=== PATIENT | female | born 1980 | race Caucasian/White ===

== ENCOUNTER → 2019-11-20 15:05 | Outpatient (CLI) | payer BC, SELFPAY ==
--- NOTE | ~2019-11-20 | XR_ITS ---
EXAMINATION: XR abdomen/kub 1V EXAM DATE: 11/20/2019 16:37 INDICATION: Pelvic pain, history kidney stones. TECHNIQUE: Frontal projection(s) of the abdomen for interpretation. Comparison is made to prior exami nation from 03/07/2019. FINDINGS: Thoracolumbar fusion hardware. There is expected amount of colonic stool and gas. No sma ll bowel dilation, nonobstructive bowel gas pattern. There are no suspicious calcifications identif ied. There is no organomegaly suspected. IMPRESSION: No suspicious calcifications identified. Reviewed, dictated and finalized at location B. ROLL MAN
--- NOTE | ~2019-11-20 | US_ITS ---
EXAMINATION: US renal BI EXAM DATE: 11/20/2019 16:37 INDICATION: Bilateral flank pain. Lithotripsy x2. TECHNIQUE: Multiple grayscale and Doppler images of the kidneys were obtained (by a technologist who performed the scan) and subsequently reviewed. There is no prior study for comparison. FINDINGS: Right kidney: There is normal contour and echogenicity. It measures 12.5 x 5.6 x 5.6 centimeters. Th ere is no hydronephrosis. Possible small stone superior pole of the right kidney, although no shadow ing was demonstrated, could just be echogenic fat. Left kidney: There is normal contour and echogenicity. It measures 11.7 x 5.9 x 4.7 centimeters. Th ere are no focal renal lesions identified. There is no hydronephrosis. Bladder unremarkable. Bilateral ureteral jets confirmed. IMPRESSION: 1. Possible small right nephrolithiasis. Reviewed, dictated and finalized at location B. [employer]
== END ==
PROVIDERS: Visit Provider Nurse Practitioner Obstetrics & Gynecology
DX: R10.2 Pelvic and perineal pain (principal); Z87.442 Personal history of urinary calculi
CPT/HCPCS: 74018; 76775

== ENCOUNTER 2020-05-08 11:00 | Emergency (ER) | payer BC, SELFPAY ==
[2020-05-08 11:20] VITALS: BP 148/98; PULSE 83; RESP 20; TEMP 36.2
--- NOTE | 2020-05-08 13:22 | ED.URI ---
HPI - URI/Sore Throat General Chief Complaint: Upper Respiratory Infection Stated Complaint: Sore throat Source: patient and RN notes reviewed Mode of arrival: ambulatory Limitations: clinical condition History of Present Illness HPI Narrative: The patient, non-smoker/nondrinker, presents with sore throat. 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 She claims of 3-day history of sore throat especially on the left. No fever, cough, shortness of breath, loss of smell/taste, sick family vomiting/diarrhea/dehydration, rash, recent travel. Patient states she started Valtrex, because the onset of symptoms was very similar to prior, similar outbreak of fever blisters -that usually begins by her lips or nose. The patient agrees, in light of health emergency- in my medical judgement, only a personal or chat was preferable to fully undress & examine the patient exhibiting potential COVID symptoms, in order to limit risk of infection. Related Data Allergies Allergy/AdvReac Type Severity Reaction Status Date / Time NSAIDS (Non-Steroidal Allergy Severe face Verified 02/11/16 14:28 Anti-Inflamma swelling amoxicillin Allergy Unknown Diarrhea Verified 09/16/17 09:48 aspirin Allergy Unknown Swelling Verified 10/28/19 09:30 clarithromycin Allergy Unknown Vomiting Verified 10/28/19 09:30 erythromycin base Allergy Unknown Vomiting Verified 10/28/19 09:30 midazolam Allergy Unknown Hallucinati Verified 10/28/19 09:30 ng tramadol Allergy Unknown Hallucinati Verified 10/28/19 09:30 ng ciprofloxacin AdvReac Severe NAUSEA AND Verified 09/23/18 08:39 DIARRHEA Review of Systems Review of Systems: Narrative: The patient has been informed that they may have pre-hypertension or Hypertension based on a BP reading in the department. I recommend that the patient call the primary care provider listed on their discharge instructions or a physician of their choice this week to arrange follow up for further evaluation of possible pre-hypertension or Hypertension General/Constitutional: No weight loss,fever Eyes: N0: Redness,discharge Ears/Nose/Throat: No: Epistaxis,ear discharge Respiratory: Denies: Hemoptysis Gastrointestinal: No Vomiting, Bleeding-rectal Skin: No Lumps, eruption Neurologic: No Focal Weakness,Sz Hematologic: Denies: Petechiae/Purpura Psychiatric: No: Suicida ideationl All Other Systems: Reviewed and Negative PMFSH Past Medical History Medical History (Updated 05/08/20 @ 11:30 by Parveen Brandon MD) Celiac disease delivery delivered 2005 and 2007 Depression (~2009) Endometriosis History of nephrolithotomy with removal of calculi 2013 Scoliosis 7 kevin and screws Surgical History Surgical History History of back surgery 1994 Hx of inguinal hernia repair Social History Social History Smoking status: Never smoker Alcohol intake: never Gender identity (if verbalized by the patient): Female Comments At time of signature, agree with nursing past medical, surgical, social and family history. There is no relevant family history pertinent to the presenting complaint Exam Narrative: Exam Narrative: General Appearance: Well appearing, Well nourished/ obese EYE: PERRLA, Conjunctiva clear Mouth/Throat: MM moist, Uvula midline, Pharyngeal erythema Neck: Supple, + adenopathy Respiratory: No respiratory distress, airway patent Cardiovascular: RRR, No JVD Musculoskeletal: Non tender, Normal strength Skin: Warm, Dry Neurological: A&O x3, CN II-XII intact Psychiatric: Normal mood, Normal affect Course Vital Signs Vital signs: Vital Signs Temperature 97.1 F L 05/08/20 11:20 Pulse Rate 83 05/08/20 11:20 Respiratory Rate 20 05/08/20 11:20 Blood Pressure 148/98 H 05/08/20 11
== END 2020-05-08 11:32 | disposition home or self-care (01) ==
PROVIDERS: Emergency Provider Emergency Medicine
DX: J02.9 Acute pharyngitis, unspecified (principal); Z20.828 Contact with and (suspected) exposure to other viral communicable diseases; N80.9 Endometriosis, unspecified; M41.9 Scoliosis, unspecified; K90.0 Celiac disease
CPT/HCPCS: 87081; 87880; 99213; G0463

== ENCOUNTER 2020-05-12 14:42 | Emergency (ER) | payer BC, SELFPAY ==
--- NOTE | ~2020-05-12 | XR_ITS ---
XR foot LT min 3V 05/12/2020 15:05 INDICATION: Left foot pain PROCEDURE: 4 views left foot COMPARISON: No prior studies for comparison. FINDINGS: Fracture, dislocation or subluxation is not identified. The soft tissues appear within norm al limits. No foreign bodies are identified. IMPRESSION: 1: NO ACUTE BONE OR JOINT ABNORMALITY IDENTIFIED. Reviewed, dictated and finalized at location A.
[2020-05-12 14:52] VITALS: BP 145/76; PULSE 85; RESP 20; TEMP 36.2; O2SAT 98
--- NOTE | 2020-05-12 15:32 | ED.LOWEXIN ---
HPI - Extremity Injury (Lower) General Chief Complaint: Extremity Injury, Lower Stated Complaint: L/foot pain Time Seen by Provider: 05/12/20 14:45 Source: patient and RN notes reviewed Mode of arrival: ambulatory Limitations: no limitations History of Present Illness HPI Narrative: The patient, who is obese and allergic to several meds, presents with foot pain. Patient states she has a history of leg length discrepancy requiring orthotics in the past. She now complains of 1 week worsening of long history of left foot pain that is mild, worse with motion, better at rest, located distal laterally. No bleeding, deformity; discussed possible causes [stress fracture, DJD, ligamentous, etc] advised to follow-up with podiatry. Related Data Allergies Allergy/AdvReac Type Severity Reaction Status Date / Time NSAIDS (Non-Steroidal Allergy Severe face Verified 02/11/16 14:28 Anti-Inflamma swelling amoxicillin Allergy Unknown Diarrhea Verified 09/16/17 09:48 aspirin Allergy Unknown Swelling Verified 10/28/19 09:30 clarithromycin Allergy Unknown Vomiting Verified 10/28/19 09:30 erythromycin base Allergy Unknown Vomiting Verified 10/28/19 09:30 midazolam Allergy Unknown Hallucinati Verified 10/28/19 09:30 ng tramadol Allergy Unknown Hallucinati Verified 10/28/19 09:30 ng ciprofloxacin AdvReac Severe NAUSEA AND Verified 09/23/18 08:39 DIARRHEA Review of Systems Review of Systems: Narrative: General/Constitutional: No weight loss,fever Eyes: N0: Redness,discharge Ears/Nose/Throat: No: Epistaxis,ear discharge Respiratory: Denies: Hemoptysis Gastrointestinal: No Vomiting, Bleeding-rectal Skin: No Lumps, eruption Neurologic: No Focal Weakness,Sz Hematologic: Denies: Petechiae/Purpura Psychiatric: No: Suicida ideationl All Other Systems: Reviewed and Negative [facility] Past Medical History Medical History (Updated 05/09/20 @ 00:00 by Ashok Delgadillo) Celiac disease delivery delivered 2005 and 2007 Depression (~2009) Endometriosis History of nephrolithotomy with removal of calculi 2013 Scoliosis 7 kevin and screws Surgical History Surgical History History of back surgery 1994 Hx of inguinal hernia repair Social History Social History Smoking status: Never smoker Alcohol intake: never Gender identity (if verbalized by the patient): Female Comments At time of signature, agree with nursing past medical, surgical, social and family history. There is no relevant family history pertinent to the presenting complaint Exam Narrative: Exam Narrative: General Appearance: Well appearing, Well nourished, No distress EYE: PERRLA, EOMI, Conjunctiva clear Ears: External ear normal, Auditory canal normal Nose: Normal nose, Nares clear Mouth/Throat: Normal appearing, Normal lips Neck: Supple Respiratory: Airway patent, No respiratory distress Musculoskeletal: Normal strength (mostly intact, limited flexion/extension by pain), Tenderness ( laterally, with mild decreased ROM), Swelling (laterally), Other (no anterior drawer, no collateral laxity, no Achilles tenderness, no fifth MT tenderness) Skin: Warm, Dry, Normal color Neurological: A&O x3, Speech clear, CN II-XII intact Psychiatric: Normal mood, Normal affect Course Vital Signs Vital signs: Vital Signs Temperature 97.2 F L 05/12/20 14:52 Pulse Rate 85 05/12/20 14:52 Respiratory Rate 05/12/20 14:52 Blood Pressure 145/76 H 05/12/20 14:52 Pulse Oximetry 98 05/12/20 14:52 Temperature 97.2 F L 05/12/20 14:52 Pulse Rate 85 05/12/20 14:52 Respiratory Rate 05/12/20 14:52 Blood Pressure 145/76 H 05/12/20 14:52 Pulse Oximetry 98 05/12/20 14:52 Discharge Plan Discharge Patient Disposition: Home, Self-Care Condition: Stable Prescriptions: New prednisone 20 mg tablet 60 m
--- NOTE | 2020-05-12 15:45 | ED.LOWEXIN ---
HPI - Extremity Injury (Lower) General Chief Complaint: Extremity Injury, Lower Stated Complaint: L/foot pain Time Seen by Provider: 05/12/20 14:45 Source: patient and RN notes reviewed Mode of arrival: ambulatory Limitations: no limitations History of Present Illness HPI Narrative: The overweight patient, who has several meds allergies, presents with left foot pain. Patient states she has 1 week worsening long history of left foot pain. Patient states she has a prior history of leg length discrepancy, having had to wear orthotics in the past. She bought new shoes, now complains of distal lateral pain that is mild, worse with motion, better at rest. No injury, bleeding, deformity; discussed possible causes [stress fracture, metatarsalgia, neuroma, etc.] advised to follow-up with podiatry Related Data Allergies Allergy/AdvReac Type Severity Reaction Status Date / Time NSAIDS (Non-Steroidal Allergy Severe face Verified 02/11/16 14:28 Anti-Inflamma swelling amoxicillin Allergy Unknown Diarrhea Verified 09/16/17 09:48 aspirin Allergy Unknown Swelling Verified 10/28/19 09:30 clarithromycin Allergy Unknown Vomiting Verified 10/28/19 09:30 erythromycin base Allergy Unknown Vomiting Verified 10/28/19 09:30 midazolam Allergy Unknown Hallucinati Verified 10/28/19 09:30 ng tramadol Allergy Unknown Hallucinati Verified 10/28/19 09:30 ng ciprofloxacin AdvReac Severe NAUSEA AND Verified 09/23/18 08:39 DIARRHEA Review of Systems Review of Systems: Narrative: General/Constitutional: No weight loss,fever Eyes: N0: Redness,discharge Ears/Nose/Throat: No: Epistaxis,ear discharge Respiratory: Denies: Hemoptysis Gastrointestinal: No Vomiting, Bleeding-rectal Skin: No Lumps, eruption Neurologic: No Focal Weakness,Sz Hematologic: Denies: Petechiae/Purpura Psychiatric: No: Suicida ideationl All Other Systems: Reviewed and Negative [facility] Past Medical History Medical History (Updated 05/12/20 @ 15:41 by Parveen Brandon MD) Celiac disease delivery delivered 2005 and 2007 Depression (~2009) Endometriosis History of nephrolithotomy with removal of calculi 2013 Scoliosis 7 kevin and screws Surgical History Surgical History History of back surgery 1994 Hx of inguinal hernia repair Social History Social History Smoking status: Never smoker Alcohol intake: never Gender identity (if verbalized by the patient): Female Exam Narrative: Exam Narrative: General Appearance: well nourished/ overwight, Well appearing, Conjunctiva clear Mouth/Throat: Normal appearing, Normal lips, Supple Respiratory: Airway patent, No respiratory distress MS ankle: Normal strength (mostly intact, limited flexion/extension by pain), Tenderness ( distallaterally, with mild decreased ROM), Swelling (laterally), Other (no anterior drawer, no collateral laxity, no Achilles tenderness, fifth MT tenderness, distally) Skin: Warm, Dry, Normal color Neurological: A&O x3, Normal affect Course Course Emergency Course: Films visualized, interpreted by radiologist, agree, normal see report Vital Signs Vital signs: Vital Signs Temperature 97.2 F L 05/12/20 14:52 Pulse Rate 85 05/12/20 14:52 Respiratory Rate 20 05/12/20 14:52 Blood Pressure 145/76 H 05/12/20 14:52 Pulse Oximetry 98 05/12/20 14:52 Temperature 97.2 F L 05/12/20 14:52 Pulse Rate 85 05/12/20 14:52 Respiratory Rate 20 05/12/20 14:52 Blood Pressure 145/76 H 05/12/20 14:52 Pulse Oximetry 98 05/12/20 14:52 Discharge Plan Discharge Clinical Impression: Chronic foot pain Qualifiers: Laterality: left Qualified Code(s): M79.672 - Pain in left foot Patient Disposition: Home, Self-Care Condition: Stable Additional Instructions: Try foot strengthening exercises, see podiatry and follow-up Prescription
== END 2020-05-12 15:42 | disposition home or self-care (01) ==
PROVIDERS: Emergency Provider Emergency Medicine
DX: M79.672 Pain in left foot (principal); F32.9 Major depressive disorder, single episode, unspecified; N80.9 Endometriosis, unspecified; Z79.82 Long term (current) use of aspirin; Z79.891 Long term (current) use of opiate analgesic; Z79.1 Long term (current) use of non-steroidal anti-inflammatories (NSAID)
CPT/HCPCS: 73630; 99213; G0463

== ENCOUNTER → 2020-07-02 08:07 | Outpatient (CLI) | payer BC, SELFPAY ==
--- NOTE | ~2020-07-02 | MMUS_ITS ---
EXAMINATION: MM diagnostic wiliam BI w leatha, US breast BI complete HISTORY: Right palpable mass. Left lung. TECHNIQUE: Bilateral full field ML, MLO and cc 3-D tomosynthesis images and bilateral spot images wit h Tomosynthesis were performed and synthetic 2-D images were generated. Left magnification views. CAD analysis was submitted and interpreted. High resolution bilateral complete breast ultrasound was per formed. COMPARISON: 07/23/2017 diagnostic right digital mammogram and right complete breast ultrasound 07/08/2017 bilateral digital screening mammogram BREAST PARENCHYMAL COMPOSITION: The breasts are heterogeneously dense, which may obscure small masses . FINDINGS: MAMMOGRAPHIC FINDINGS: There is a biopsy marker on the right; history of prior bilateral benign breast biopsies. There is bilateral benign calcifications. Heterogeneous dense stroma may obscure masses on either side. Complete bilateral breast ultrasound ex amination was performed. ULTRASOUND: Right breast: 11:00 8 cm from nipple: 12 x 8 x 6 mm circumscribed hypoechoic mass is identified at the area of palp able abnormality. 11:00 6 cm from nipple: Irregular 8 x 9 mm hypoechoic solid lesion is identified, with some posterior shadowing. Left breast: 1:00 2 cm from nipple: Parallel circumscribed hypoechoic approximately 3.2 x 6 mm solid lesion without internal vascularity or posterior shadowing.. IMPRESSION: 1. Irregular 9 mm mass of right breast at 11:00 6 cm from nipple; ultrasound-guided biopsy is recomme nded 2. Parallel circumscribed hypoechoic solid lesions at right breast 11:00 8 cm from nipple and left br east 1:00 2 cm from nipple; these are likely benign. Consider 6 month follow-up ultrasound examinatio n. BI-RADS Category 4: Suspicious abnormality; ultrasound-guided biopsy is recommended for right breast 11:00 lesion 8 cm from nipple BI-RADS Category 3: Probably benign; recommend 6 month follow-up ultrasound with attention to right b reast 11:00 lesion 8 cm from nipple and left breast 1:00 lesion 2 cm from nipple Reviewed, dictated and finalized at location A. IMPRESSION: 1. Irregular 9 mm mass of right breast at 11:00 6 cm from nipple; ultrasound-gu ided biopsy is recommended 2. Parallel circumscribed hypoechoic solid lesions at right breast 11:00 8 cm f rom nipple and left breast 1:00 2 cm from nipple; these are likely benign. Cons ider 6 month follow-up ultrasound examination. BI-RADS Category 4: Suspicious abnormality; ultrasound-guided biopsy is recomme nded for right breast 11:00 lesion 8 cm from nipple BI-RADS Category 3: Probably benign; recommend 6 month follow-up ultrasound wit h attention to right breast 11:00 lesion 8 cm from nipple and left breast 1:00 lesion 2 cm from nipple
== END ==
PROVIDERS: Visit Provider Nurse Practitioner Obstetrics & Gynecology
DX: R92.8 Other abnormal and inconclusive findings on diagnostic imaging of breast (principal)
CPT/HCPCS: 76641; 77062; 77066; G0279

== ENCOUNTER → 2020-09-25 12:59 | Outpatient (CLI) | payer BC, SELFPAY ==
--- NOTE | ~2020-09-25 | CT_ITS ---
EXAMINATION: CT abdomen pelvis w con EXAM DATE: 09/25/2020 13:26 INDICATION: Abdominal pain. Irritable bowel syndrome. TECHNIQUE: Spiral CT of the abdomen and pelvis was performed following intravenous injection of 100 m L Omnipaque 350. Axial, coronal and sagittal images were reviewed. The dose-length product (DLP) fo r this examination was 1056.54 mGy-cm. The exposure was tailored according to patient size (auto mA exposure control), and iterative reconstruction (ASIR) was used as additional dose reduction techniqu e. Comparison is made to prior examination from 05/16/2018. FINDINGS: Small abdominal wall mesh identified from hernia repair. There is hepatic steatosis without suspicious focal lesion identified. Spleen, adrenal glands, pancreas are unremarkable. Gallbladder is unremarkable. No biliary obstruction. Portal and splenic veins are patent. Kidneys enhance symm etrically. There is no hydronephrosis. The uterus is anteverted with multiple cystic regions in the cervix most likely nabothian cysts. Ther e is a 4.6 cm left adnexal, ovarian cystic lesion most likely a dominant follicle or hemorrhagic cyst . No evidence of mural nodule. Consider 6 week follow-up pelvic sonogram. The bladder is unremarkabl e. There is no retroperitoneal or pelvic lymphadenopathy. Thoracolumbar fusion hardware along the left lateral side There is small region of inflammation along the descending colon new compared to prior examination, c ould be focal colitis or diverticulitis although only a few scattered colonic diverticula are present . The appendix is normal. The stomach and small bowel are unremarkable. There is expected amount of colonic stool. No free intraperitoneal gas. The heart is normal in size. There are no pericardi al or pleural effusions. Punctate right lower lobe granuloma. There is small sclerotic focus within T 9 is unchanged, likely bone island. IMPRESSION: 1. Small region of focal inflammation along the descending colon. Could be uncomplicated diverticuli tis or focal region of colitis. 2. Left ovarian cystic lesion likely physiologic or hemorrhagic cyst. Multiple cervical cystic regio ns probably nabothian cyst. Consider 6 week follow-up pelvic sonogram. 3. Hepatic steatosis. Reviewed, dictated and finalized at location A. T PREPARER IMPRESSION: 1. Small region of focal inflammation along the descending colon. Could be unc omplicated diverticulitis or focal region of colitis. 2. Left ovarian cystic lesion likely physiologic or hemorrhagic cyst. Multiple cervical cystic regions probably nabothian cyst. Consider 6 week follow-up pel natalia sonogram. 3. Hepatic steatosis.
== END ==
DX: R10.9 Unspecified abdominal pain (principal); K76.0 Fatty (change of) liver, not elsewhere classified; Z98.1 Arthrodesis status; N88.8 Other specified noninflammatory disorders of cervix uteri; K52.9 Noninfective gastroenteritis and colitis, unspecified
CPT/HCPCS: 74177; Q9967

== ENCOUNTER 2021-09-05 10:05 | Emergency (ER) | payer BC, SELFPAY ==
[2021-09-05 10:29] VITALS: BP 129/78; PULSE 85; RESP 18; TEMP 36.2; O2SAT 98
--- NOTE | 2021-09-05 10:57 | ED.URI ---
HPI - URI/Sore Throat General Chief Complaint: Upper Respiratory Infection Stated Complaint: fever,cough,congestion Source: patient and RN notes reviewed Limitations: no limitations History of Present Illness HPI Narrative: The vaccinated patient, a non-smoker/nondrinker, presents with respiratory symptoms. Patient states she has a shorter 2-day history of definite fever to 103 ,associated myalgias with headache, congestion and minimal cough. No sore throat, earache, wheezing?there is some sneezing; she had tonsillectomy in the past. She has several allergies; but has taken Z-Brandon in the past with Diflucan. Related Data Home Medications Medication Instructions Recorded Confirmed lifitegrast 5 % eye drops in a 1 drp EACH EYE BID 01/15/21 09/05/21 dropperette acetaminophen 325 mg capsule 325 mg PO Q6H PRN 06/05/21 09/05/21 Allergies Allergy/AdvReac Type Severity Reaction Status Date / Time NSAIDS (Non-Steroidal Allergy Severe face Verified 09/05/21 10:47 Anti-Inflamma swelling amoxicillin Allergy Unknown Diarrhea Verified 09/05/21 10:47 aspirin Allergy Unknown Swelling Verified 09/05/21 10:47 clarithromycin Allergy Unknown Vomiting Verified 09/05/21 10:47 erythromycin base Allergy Unknown Vomiting Verified 09/05/21 10:47 midazolam Allergy Unknown Hallucinati Verified 09/05/21 10:47 ng tramadol Allergy Unknown Hallucinati Verified 09/05/21 10:47 ng ciprofloxacin AdvReac Severe NAUSEA AND Verified 09/05/21 10:47 DIARRHEA Review of Systems Review of Systems: General/Constitutional: No weight loss, REPORTS fever Eyes: N0: Redness,discharge Ears/Nose/Throat: No: Epistaxis,ear discharge Respiratory: Denies: Hemoptysis Gastrointestinal: No Vomiting, Bleeding-rectal Skin: No Lumps, eruption Neurologic: No Focal Weakness,Sz Hematologic: Denies: Petechiae/Purpura Psychiatric: No: Suicida ideationl All Other Systems: Reviewed and Negative [facility] Past Medical History Medical History Celiac disease delivery delivered 2005 and 2007 Depression (~2009) Diverticulitis (~2019) Endometriosis Enlarged tonsils History of nephrolithotomy with removal of calculi 2013 Obstructive sleep apnea Scoliosis 7 kevin and screws Shingles Vitamin D deficiency Surgical History Surgical History (Updated 11/21/20 @ 08:22 by Jean-Pierre Spann [facility]) H/O breast biopsy History of back surgery 1994 Hx of inguinal hernia repair Family History Family History Father Family history of diabetes mellitus in first degree relative Depression Skin and subcutaneous tissue complication after insertion of filling material under skin Mother Asthma Breast cancer Sibling Asthma Depression Other Asthma Grandparent Hypertension Heart disease Grandparent Asthma Diabetes mellitus Hypertension Heart disease Thyroid disorder Other Family history of allergic disorder Social History Social History Smoking status: Never smoker Alcohol intake: current Substance use: never Substance use type: does not use Gender identity (if verbalized by the patient): Female Comments At time of signature, agree with nursing past medical, surgical, social and family history. There is no relevant family history pertinent to the presenting complaint Exam Narrative: General Appearance: Overweight/well nourished EYE: PERRLA, Conjunctiva clear Ears: Auditory canal normal, TM normal Nose: Rhinorrhea, Mucousal erythema Mouth/Throat: MM moist, Uvula midline, Pharyngeal erythema Neck: Supple, No adenopathy Respiratory: No respiratory distress,; distant BS equal, Clear to auscultation Cardiovascular: RRR, No JVD Musculoskeletal: Non tender, Normal strength Skin: Warm, Dry Neurological: A&O x3, CN II-XII intact Psychiatric:
[2021-09-06 19:57] LABS: SARS-CoV-2 RNA PCR Positive
== END 2021-09-05 11:08 | disposition home or self-care (01) ==
PROVIDERS: Emergency Provider Emergency Medicine; PCP Nurse Practitioner Family
DX: U07.1 COVID-19 (principal); N80.9 Endometriosis, unspecified; G47.33 Obstructive sleep apnea (adult) (pediatric); K90.0 Celiac disease; M41.9 Scoliosis, unspecified
CPT/HCPCS: 87804; 99213; C9803; G0463; U0003; U0005

== ENCOUNTER 2022-05-18 13:55 | Outpatient (CLI) | payer BC, SELFPAY ==
[2022-05-18 19:40] LABS: Alanine Aminotransferase 62 U/L (6-35); Albumin Level 4.5 g/dL (3.5-5.1); Alkaline Phosphatase 77 U/L (38-126); Anion Gap 11 mmol/L (8-16); Aspartate Amino Transferase 49 U/L (14-36); Bilirubin,Total 0.3 mg/dL (0.2-1.3); Blood Urea Nitrogen 14 mg/dL (7-17); Calcium 9.4 mg/dL (8.4-10.2); Carbon Dioxide 27 mmol/L (22-30); Chloride 98 mmol/L (98-107); Estimated Glomerular Filt Rate > 60; Glucose 124 mg/dL (65-110); Sodium 136 mmol/L (137-145)
[2022-05-18 19:46] LABS: Basophils Percent Auto 0.3 % (0.2-1.2); Eosinophils Absolute Auto 0.1 K/mm3 (0-0.3); Eosinophils Percent Auto 1.6 % (0-4.4); Hematocrit 45.2 % (37.0-47.0); Hemoglobin 14.1 g/dL (12.0-15.0); Immature Granulocyte Absolute 0.04 K/mm3 (0.00-0.031); Immature Granulocyte Percent A 0.5 % (0-0.5); Lymphocytes Absolute Auto 2.15 K/mm3 (0.9-3.2); Lymphocytes Percent Auto 28.3 % (18.3-44.2); Mean Corpuscular HGB Conc 31.2 g/dl (32-36); Mean Corpuscular Hemoglobin 28.8 pg (26-34); Mean Corpuscular Volume 92.2 fl (80-100); Mean Platelet Volume 9.9 fl (7.4-10.4); Monocytes Absolute Auto 0.4 K/mm3 (0.1-0.6); Monocytes Percent Auto 4.7 % (2.6-8.5); Neutrophils Absolute Auto 4.9 K/mm3 (1.3-6.7); Neutrophils Percent Auto 64.6 % (45.5-73.1); Platelet Count Result 327 k/mm3 (150-375); Red Cell Distribution Width 13.4 % (11.5-14.5); White Blood Count 7.6 K/mm3 (4.5-10.0)
[2022-05-18 20:46] LABS: Hepatitis B Surface Anti Res Positive
[2022-05-18 21:22] LABS: Vitamin D 25 Hydroxy 27.4 ng/mL
== END 2022-05-18 13:56 | disposition home or self-care (01) ==
LOC: ANHGOSHLAB 13:56
PROVIDERS: PCP Nurse Practitioner; Visit Provider Nurse Practitioner
DX: Z13.6 Encounter for screening for cardiovascular disorders (principal); E55.9 Vitamin D deficiency, unspecified; E53.8 Deficiency of other specified B group vitamins; Z02.1 Encounter for pre-employment examination
CPT/HCPCS: 36415; 80053; 82306; 82607; 85025; 86706

== ENCOUNTER 2022-05-23 12:31 | Emergency (ER) | payer BC, SELFPAY ==
--- NOTE | ~2022-05-23 | XR_ITS ---
EXAMINATION: XR thoracic spine 3V DATE: 05/23/2022 14:14 INDICATION: Upper back pain TECHNIQUE: AP, lateral and lateral swimmer's views of the thoracic spine were obtained. COMPARISON: None. FINDINGS: There are 15 degrees of upper thoracic levoscoliosis. There is no fracture. Bone alignment is normal. There is mild loss of intervertebral disc space height in the upper thoracic spine. The ve rtebral body heights are normal. There are partially imaged changes of lumbar fusion. IMPRESSION: 1. Mild thoracic spondylosis without acute findings. Reviewed, dictated and finalized at location A.
[2022-05-23 12:45] VITALS: BP 133/77; PULSE 69; RESP 18; TEMP 36.6; O2SAT 98
--- NOTE | 2022-05-23 13:51 | ED.GENADULT ---
HPI - General Adult General Chief complaint: Back Pain/Injury Stated complaint: Rt Shoulder Pain Time Seen by Provider: 05/23/22 13:52 Source: patient Mode of arrival: ambulatory Limitations: no limitations History of Present Illness HPI narrative: 41-year-old female patient presents to the [facility] with complaints of upper back pain for the past week. 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 Patient states she thinks it has to do with her posture that is causing issues with her upper back. Patient does have chronic history of scoliosis and in 1994 a lumbar kevin was put into the lower back. Patient states she tends to have issues with her upper back and muscle spasms because there was no fixing of her curvature toward the thoracic spine. Patient denies any specific injury to her back that she is aware of. Patient states she typically takes Tylenol or extra strength Tylenol to help with the pain. Patient states her pain is gotten significantly worse today. Denies any numbness or tingling to the lower legs. No issues with ambulation. Related Data Home Medications Medication Instructions Recorded Confirmed doxycycline hyclate 50 mg capsule mg 05/23/22 moxifloxacin 0.5 % eye drops drp 05/23/22 Allergies Allergy/AdvReac Type Severity Reaction Status Date / Time NSAIDS (Non-Steroidal Allergy Severe face Verified 05/23/22 12:38 Anti-Inflamma swelling amoxicillin Allergy Unknown Diarrhea Verified 05/23/22 12:38 aspirin Allergy Unknown Swelling Verified 05/23/22 12:38 clarithromycin Allergy Unknown Vomiting Verified 05/23/22 12:38 erythromycin base Allergy Unknown Vomiting Verified 05/23/22 12:38 midazolam Allergy Unknown Hallucinati Verified 05/23/22 12:38 ng tramadol Allergy Unknown Hallucinati Verified 05/23/22 12:38 ng ciprofloxacin AdvReac Severe NAUSEA AND Verified 05/23/22 12:38 DIARRHEA Review of Systems Review of Systems: CONSTITUTIONAL: Denies fever, chills, or sweats. EYES: Denies visual changes, redness, or discharge. ENT: Denies rhinorrhea, congestion, sore throat, or otalgia. CARDIOVASCULAR: Denies chest pain, palpitations, or edema. RESPIRATORY: Denies cough or dyspnea. GASTROINTESTINAL: Denies abdominal pain, nausea, vomiting, or diarrhea. GENITOURINARY: Denies dysuria or hematuria. SKIN: Denies rash or itching. MUSCULOSKELETAL: Positive upper back pain, denies joint pain, or myalgia. NEUROLOGIC: Denies headache, numbness, or weakness. PSYCHIATRIC: Denies anxiety or depression. [facility] Past Medical History Medical History Celiac disease delivery delivered 2005 and 2007 Depression (~2009) Diverticulitis (~2019) Endometriosis Enlarged tonsils History of nephrolithotomy with removal of calculi 2013 History of shingles Scoliosis 7 kevin and screws Shingles Vitamin D deficiency Surgical History Surgical History H/O breast biopsy History of back surgery 1994 History of tonsillectomy Hx of inguinal hernia repair Family History Family History Father Family history of diabetes mellitus in first degree relative Depression Skin and subcutaneous tissue complication after insertion of filling material under skin Mother Asthma Breast cancer Sibling Asthma Depression Other Asthma Grandparent Hypertension Heart disease Grandparent Asthma Diabetes mellitus Hypertension Heart disease Thyroid disorder Other Family history of allergic disorder Social History Social History Smoking status: Never smoker Alcohol intake: current Substance use: never Substance use type: does not use Gender identity (if verbalized by the patient): Female
== END 2022-05-23 14:43 | disposition home or self-care (01) ==
PROVIDERS: Emergency Provider Nurse Practitioner Family; PCP Nurse Practitioner Family
DX: M41.9 Scoliosis, unspecified (principal); M62.830 Muscle spasm of back; N80.9 Endometriosis, unspecified
CPT/HCPCS: 72072; 99213; G0463

== ENCOUNTER 2022-06-30 14:45 | Outpatient (CLI) | payer BC, SELFPAY ==
--- NOTE | ~2022-06-30 | CT_ITS ---
EXAMINATION: CT abdomen pelvis wo con DATE: 06/30/2022 15:09 INDICATION: Left lower quadrant abdominal pain. TECHNIQUE: Computed tomography (CT) of the abdomen and pelvis was performed without intravenous contr ast. Automated exposure control and iterative reconstruction technique were employed. The dose-length product was 1360.02 mGy-cm. COMPARISON: CT abdomen and pelvis 09/25/2020 FINDINGS: The visualized portions of the lung bases demonstrate mild atelectasis. No pleural effusion . The heart size is normal. No pericardial effusion. There is diffuse hepatic steatosis. The gallblad miles, spleen, pancreas, and adrenal glands are normal. There is a 1 mm stone in right kidney. There is a 1 mm stone in left kidney. There is a 3.0 cm peripelvic cyst in left kidney. There are nabothian c ysts in the cervix. There are no dilated loops of bowel. The appendix is normal. There are no patholo gically enlarged lymph nodes. There is no free intraperitoneal fluid. There is lumbar levocurvature. There are changes of anterior fusion procedure from T12 to L3. There is moderate lumbar spondylosis. IMPRESSION: 1. Diffuse hepatic steatosis. Reviewed, dictated and finalized at location A.
== END 2022-06-30 14:46 | disposition home or self-care (01) ==
PROVIDERS: PCP Family Medicine; Visit Provider Nurse Practitioner Family
DX: R10.32 Left lower quadrant pain (principal); K76.0 Fatty (change of) liver, not elsewhere classified
CPT/HCPCS: 74176

== ENCOUNTER 2022-08-31 22:41 | Emergency (ER) | payer BC, SELFPAY ==
--- NOTE | ~2022-08-31 | XR_ITS ---
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 RESULT: Lines, tubes, and devices: Partially visualized thoracolumbar fusion hardware. Lungs and pleura: Clear. Cardiomediastinal silhouette: Unremarkable. Other: No acute osseous or upper abdominal finding. IMPRESSION: No acute cardiopulmonary process. Reviewed, dictated and finalized at location K. ANICAL PRODUCT ENGINEER
[2022-08-31 22:43] VITALS: BP 163/88; PULSE 79; RESP 16; TEMP 36.4; O2SAT 98
--- NOTE | 2022-08-31 22:45 | ECG_ITS ---
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
[2022-08-31 23:29] LABS: Basophils Percent Auto 0.4 % (0.2-1.2); Eosinophils Absolute Auto 0.1 K/mm3 (0-0.3); Eosinophils Percent Auto 1.9 % (0-4.4); Hematocrit 40.6 % (37.0-47.0); Immature Granulocyte Absolute 0.03 K/mm3 (0.00-0.031); Immature Granulocyte Percent A 0.4 % (0-0.5); Lymphocytes Absolute Auto 2.19 K/mm3 (0.9-3.2); Lymphocytes Percent Auto 31.5 % (18.3-44.2); Mean Corpuscular Hemoglobin 29.3 pg (26-34); Mean Corpuscular Volume 91.4 fl (80-100); Mean Platelet Volume 9.3 fl (7.4-10.4); Monocytes Absolute Auto 0.5 K/mm3 (0.1-0.6); Monocytes Percent Auto 7.6 % (2.6-8.5); Neutrophils Absolute Auto 4.1 K/mm3 (1.3-6.7); Neutrophils Percent Auto 58.2 % (45.5-73.1); Platelet Count Result 244 k/mm3 (150-375); Red Blood Count 4.44 M/mm3 (4.2-5.4); Red Cell Distribution Width 13.3 % (11.5-14.5)
[2022-08-31 23:41] LABS: Prothrombin Time 12.5 Seconds (11.1-14.7)
[2022-08-31 23:42] LABS: Chloride 104 mmol/L (98-107); Partial Thromboplastin Time 24.5 SECONDS (22.3-36.8)
[2022-08-31 23:54] LABS: Troponin I < 0.012 ng/mL (0.000-0.034)
[2022-09-01 00:03] LABS: Alanine Aminotransferase 47 U/L (6-35); Alkaline Phosphatase 65 U/L (38-126); Anion Gap 10 mmol/L (8-16); Aspartate Amino Transferase 32 U/L (14-36); Bilirubin,Total 0.2 mg/dL (0.2-1.3); Blood Urea Nitrogen 12 mg/dL (7-17); Calcium 8.5 mg/dL (8.4-10.2); Carbon Dioxide 24 mmol/L (22-30); Estimated CRCL calculation 113 ml/min; Estimated Glomerular Filt Rate > 60; Glucose 121 mg/dL (65-110); Lipase 61 U/L (23-300); Potassium 3.9 mmol/L (3.4-5.0); Sodium 138 mmol/L (137-145)
--- NOTE | 2022-09-01 02:18 | ED.CHESTPAIN ---
HPI - Chest Pain General Chief Complaint: Chest Pain Stated Complaint: CP Time Seen by Provider: 08/31/22 22:52 History of Present Illness HPI narrative: Patient with no cardiac history presents with an episode of feeling like her heart was being squeezed that lasted for about a second and happened twice. Afterwards she has no symptoms, no nausea or vomiting, chest pain or shortness of breath, she has never had symptoms like this in the past, she did state that she had the COVID booster yesterday. Related Data Home Medications Medication Instructions Recorded Confirmed moxifloxacin 0.5 % eye drops drp 05/23/22 06/30/22 Allergies Allergy/AdvReac Type Severity Reaction Status Date / Time NSAIDS (Non-Steroidal Allergy Severe face Verified 06/30/22 13:54 Anti-Inflamma swelling amoxicillin Allergy Unknown Diarrhea Verified 06/30/22 13:54 aspirin Allergy Unknown Swelling Verified 06/30/22 13:54 clarithromycin Allergy Unknown Vomiting Verified 06/30/22 13:54 erythromycin base Allergy Unknown Vomiting Verified 06/30/22 13:54 midazolam Allergy Unknown Hallucinati Verified 06/30/22 13:54 ng tramadol Allergy Unknown Hallucinati Verified 06/30/22 13:54 ng ciprofloxacin AdvReac Severe NAUSEA AND Verified 06/30/22 13:54 DIARRHEA Review of Systems Review of Systems: CONST: No fever. HEENT: No sore throat C/V: Chest pain now resolved RESP: No cough GI: no abdominal pain : No dysuria. M/S: No joint pain. SKIN: No rash. NEURO: [No headache or focal numbness or weakness] PSYCH: [No depression] PMFSH Past Medical History Medical History Celiac disease delivery delivered 2005 and 2007 Depression (~2009) Diverticulitis (~2019) Endometriosis Enlarged tonsils History of nephrolithotomy with removal of calculi 2014 History of shingles Scoliosis 7 kevin and screws Shingles Vitamin D deficiency Surgical History Surgical History H/O breast biopsy History of back surgery 1994 History of tonsillectomy Hx of inguinal hernia repair Family History Family History Father Family history of diabetes mellitus in first degree relative Depression Skin and subcutaneous tissue complication after insertion of filling material under skin Mother Asthma Breast cancer Sibling Asthma Depression Other Asthma Grandparent Hypertension Heart disease Grandparent Asthma Diabetes mellitus Hypertension Heart disease Thyroid disorder Other Family history of allergic disorder Social History Social History Smoking status: Never smoker Alcohol intake: current Substance use: never Substance use type: does not use Gender identity (if verbalized by the patient): Female Sexual Orientation (if Verbalized by the Patient): Straight or Heterosexual Spiritual care concerns: No Exam Narrative: EXAMINATION OF ORGAN SYSTEMS/BODY AREAS: Constitutional: Vital signs per nursing GENERAL:[No acute distress, non-toxic appearing.] HEAD: Normal with no signs of head trauma. EYES: EOMI, conjunctiva normal ENT: Hearing grossly intact LUNGS: Nonlabored breathing. Clear to auscultation HEART: [Regular rate and rhythm] ABD: [Soft], [nontender to palpation] EXT: Normal range of motion SKIN: [No rashes or lesions.] NEURO: [Alert and oriented x 3. No gross focal sensory or strength deficits.] PSYCH: Normal affect Course Vital Signs Vital signs: Vital Signs Temperature 97.5 F L 08/31/22 22:43 Pulse Rate 79 08/31/22 22:43 Respiratory Rate 16 08/31/22 22:43 Blood Pressure 163/88 H 08/31/22 22:43 Pulse Oximetry 98 08/31/22 22:43 Temperature 97.5 F L 08/31/22 22:43 Pulse Rate 79 08/31/22 22:43 Respiratory Rate 16 08/31/22 22:43 Blood Pressure 163/88 H
[2022-09-01 02:25] LABS: Troponin I < 0.012 ng/mL (0.000-0.034)
[2022-09-01 03:10] VITALS: BP 134/94; PULSE 89; RESP 16; O2SAT 97
== END 2022-09-01 03:10 | disposition home or self-care (01) ==
PROVIDERS: Emergency Provider Emergency Medicine; PCP Family Medicine
DX: R07.89 Other chest pain (principal); K90.0 Celiac disease; N80.9 Endometriosis, unspecified; E55.9 Vitamin D deficiency, unspecified; Z87.442 Personal history of urinary calculi; R94.31 Abnormal electrocardiogram [ECG] [EKG]
CPT/HCPCS: 36415; 71046; 80053; 83690; 84484; 85025; 85610; 85730; 93005; 99284

== ENCOUNTER 2022-12-07 09:06 | Outpatient (CLI) | payer BC, SELFPAY ==
[2022-12-07 10:49] LABS: Kit Draw Collected
== END 2022-12-07 09:07 | disposition home or self-care (01) ==
LOC: ANHGOSHLAB 09:07
PROVIDERS: PCP Family Medicine; Visit Provider Nurse Practitioner Family
DX: Z00.00 Encounter for general adult medical examination without abnormal findings (principal); R74.8 Abnormal levels of other serum enzymes; Z13.220 Encounter for screening for lipoid disorders; E55.9 Vitamin D deficiency, unspecified
CPT/HCPCS: 36415

== ENCOUNTER → 2022-12-07 09:18 | Outpatient (CLI) | payer BC, SELFPAY ==
--- NOTE | ~2022-12-07 | XR_ITS ---
Left Knee Technique: AP and lateral views were obtained. Clinical History: Pain Findings: No fracture or dislocation is seen. Osseous alignment is anatomic. Joint spaces are preserv ed without degenerative or erosive change. Soft tissues are unremarkable. No joint effusion is seen. Impression: Unremarkable left knee radiographs. Reviewed, dictated and finalized at [facility]. 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
--- NOTE | ~2022-12-07 | XR_ITS ---
Right Knee Technique: AP and lateral views were obtained. Clinical History: Pain Findings: No fracture or dislocation is seen. Osseous alignment is anatomic. Joint spaces are preserv ed without degenerative or erosive change. Soft tissues are unremarkable. No joint effusion is seen. Impression: Unremarkable right knee radiographs. Reviewed, dictated and finalized at [facility]. 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
== END ==
PROVIDERS: PCP Nurse Practitioner Family; Visit Provider Nurse Practitioner Family
DX: M25.561 Pain in right knee (principal); M25.562 Pain in left knee
CPT/HCPCS: 73560

== ENCOUNTER 2023-01-21 14:29 | Outpatient (RCR) | payer BC, SELFPAY ==
[2023-01-21 14:39] VITALS: BMI 41.5
[2023-01-22 11:57] VITALS: BMI 41.5
== END 2023-04-12 08:54 | disposition home or self-care (01) ==
LOC: ANHDMC 14:29
PROVIDERS: PCP Nurse Practitioner Family; Visit Provider Nurse Practitioner Family
DX: R73.03 Prediabetes (principal); Z71.3 Dietary counseling and surveillance
CPT/HCPCS: 97802

== ENCOUNTER 2023-03-30 15:15 | Outpatient (RCR) | payer BC, SELFPAY ==
--- NOTE | 2023-01-13 16:23 | PTOPEVAL1 ---
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 She reports history of swelling in her legs, but has gotten worse with pain in L ankle. Also has pain in her knees, seeing ortho dr for knee pain. Her medical history includes multiple abdominal surgeries, mesh throughout abdomen, scoliosis surgery with rib on L removal. With the evaluation, her skin color is normal with fluffy texture, excess adipose tissue over lateral thighs and hips; there is not any fibrotic tissue and both ankles are edematous, with the L ankle painful. The circumferential measurements are within 3 cm. Education provided to pt and treatment options. Skilled PT services are indicated for lymphedema- lipedema treatment for both legs, compression reduction kit, manual lymph drainage, intermittent compression pump and education for home exercises , compression garment for her to obtain, skin care and garment care. Plan of Care Interventions Intermittent Compression,Lymphedema Compression Pump ,Manual Lymph Drainage,Patient/Caregiver Education, Therapeutic Exercise PT Services Indicated Yes Treatment Frequency and 0-2x/wk for 6 weeks, due to availability of Duration therapists' to initiate treatment These treatments will address the objective and functional deficits as defined above. The patient will be advanced safely and appropriately in order for the patient to progress towards his/her prior level of function. Additional exercises will be introduced and as well as a comprehensive home exercise program upon discharge, if needed, ?to ensure carryover of functional gains achieved in the clinic. This treatment plan has been reviewed and agreement upon by the patient.
--- NOTE | 2023-02-24 12:38 | PCPTNOTE ---
pt called and canceled today's reeval due to being ill--rescheduled for ;
--- NOTE | 2023-03-09 10:50 | PTOPPROG ---
Assessment and note entered by Sarah Vasquez, PT, CLT Evaluation Information Assessment Status Progress Diagnosis lymphedema Onset 2017 Subjective Information Kaylie reports: legs are much smaller, smaller than they have been in a long time; after doing yard work this weekend, legs were bigger; just recieved the home pump- have to call and make appt for set up; legs not as sore and do not have the pocket of swelling that have had before; pain range of 0-8/10; up to 8/10 sharp pain last few seconds only in either leg Assessment PT Clinical Summary Kaylie has received a total of 8 PT sessions. She has just received the home compression pump, but not yet received education for it. Compared to the initial evaluation: circumferential measurements have decreased: R by 13.7 cm and L by 11 cm; less pain reported in legs education on self care of lymphedema. She is using the reduction kit for compression to both lower legs. The goals were partially met. Continue PT for pt to obtain compression garments for half-way use; assess if she needs thigh compression, complete education for self care of lymphedema. Plan of Care Interventions Lymphedema Compression Wraps,Manual Lymph Drainage, Neuro Re-education,Patient/Caregiver Education, Therapeutic Activities,Therapeutic Exercise PT Services Indicated Yes Treatment Frequency and 2x/wk for 4 weeks Duration These treatments will address the objective and functional deficits as defined above. The patient will be advanced safely and appropriately in order for the patient to progress towards his/her prior level of function. Additional exercises will be introduced and as well as a comprehensive home exercise program upon discharge, if needed, ?to ensure carryover of functional gains achieved in the clinic. This treatment plan has been reviewed and agreement upon by the patient.
--- NOTE | 2023-03-30 16:17 | PTOPDC ---
Assessment and note entered by Sarah Vasquez, PT Evaluation Information Assessment Status Discharge Diagnosis lymphedema Onset 2018 Subjective Information Kaylie reports: legs are good; garments are comfortable, using home pump every day, elevating legs, do self massage, watching her food; ready for discharge; is going to obtain a compression luis alfredo; having less sharp pain in legs; Reported Pain Level Pain Score Self Report Assessment PT Clinical Summary Kaylie has received 12 PT sessions. Compared to the last reevaluation: the circumferential measurements of her legs : R has increased by .1 cm and L has decreased by 10.2 cm. Her skin integrity is good, without any firmness or redness of the tissue. She has lipedema, with increased adipose tissue over lateral hips and thighs. She has calf high, 20-30 mmHg compression garments with good fit and comfortable to her. She has info for compression luis alfredo and is going to look into the different types available and order a pair. She has a home intermittent compression pump and has been receptive to the education and voices understanding of the information. The goals were partially met. Discharge PT services. Plan of Care PT Services Indicated No
== END 2023-03-31 07:03 | disposition home or self-care (01) ==
LOC: ANHPT 15:15
PROVIDERS: PCP Nurse Practitioner Family; Visit Provider Nurse Practitioner Family
DX: I89.0 Lymphedema, not elsewhere classified (principal); M77.11 Lateral epicondylitis, right elbow
CPT/HCPCS: 97016; 97140; 97161

== ENCOUNTER 2023-07-15 08:19 | Outpatient (CLI) | payer BC, SELFPAY ==
[2023-07-15 18:42] LABS: Basophils Percent Auto 0.6 % (0.2-1.2); Eosinophils Absolute Auto 0.1 K/mm3 (0-0.3); Eosinophils Percent Auto 1.5 % (0-4.4); Hematocrit 43.9 % (37.0-47.0); Hemoglobin 13.8 g/dL (12.0-15.0); Immature Granulocyte Absolute 0.03 K/mm3 (0.00-0.031); Immature Granulocyte Percent A 0.4 % (0-0.5); Lymphocytes Absolute Auto 2.21 K/mm3 (0.9-3.2); Mean Corpuscular HGB Conc 31.4 g/dl (32-36); Mean Corpuscular Hemoglobin 28.9 pg (26-34); Mean Platelet Volume 9.9 fl (7.4-10.4); Monocytes Absolute Auto 0.4 K/mm3 (0.1-0.6); Monocytes Percent Auto 6.2 % (2.6-8.5); Neutrophils Absolute Auto 4.3 K/mm3 (1.3-6.7); Neutrophils Percent Auto 60.3 % (45.5-73.1); Platelet Count Result 283 k/mm3 (150-375); Red Blood Count 4.77 M/mm3 (4.2-5.4); Red Cell Distribution Width 13.4 % (11.5-14.5); White Blood Count 7.1 K/mm3 (4.5-10.0)
[2023-07-15 19:07] LABS: Alanine Aminotransferase 136 U/L (6-35); Albumin Level 4.3 g/dL (3.5-5.1); Alkaline Phosphatase 75 U/L (38-126); Anion Gap 5 mmol/L (8-16); Aspartate Amino Transferase 100 U/L (14-36); Bilirubin,Total 0.6 mg/dL (0.2-1.3); Blood Urea Nitrogen 12 mg/dL (7-17); Calcium 8.7 mg/dL (8.4-10.2); Carbon Dioxide 27 mmol/L (22-30); Chloride 104 mmol/L (98-107); Cholesterol 189 mg/dL (0-200); Estimated Glomerular Filt Rate > 60; Glucose 97 mg/dL (65-110); HDL Direct 60 mg/dL; Potassium 4.4 mmol/L (3.4-5.0); Sodium 136 mmol/L (137-145); Triglycerides 141 mg/dL (<150)
[2023-07-15 19:18] LABS: LDL Cholesterol Direct 98 mg/dL
[2023-07-19 23:55] LABS: Vitamin D 1,25 (OH)2 Total 69 pg/mL (18-72); Vitamin D2 1,25 (OH)2 <8 pg/mL; Vitamin D3 1,25 (OH)2 69 pg/mL
== END 2023-07-15 08:20 | disposition home or self-care (01) ==
LOC: ANHGOSHLAB 08:21
PROVIDERS: PCP Family Medicine; Visit Provider Nurse Practitioner Family
DX: E55.9 Vitamin D deficiency, unspecified (principal); E66.9 Obesity, unspecified; Z68.38 Body mass index [BMI] 38.0-38.9, adult
CPT/HCPCS: 36415; 80053; 80061; 82652; 84443; 85025

== ENCOUNTER 2023-07-16 15:11 | Outpatient (CLI) | payer BC, SELFPAY ==
[2023-07-16 19:37] LABS: Hepatitis B Surface Antigen Negative (Negative)
[2023-07-16 19:43] LABS: HAV RESULT Negative (Negative); Hepatitis B Core IgM Result Negative (Negative)
[2023-07-16 19:55] LABS: Hepatitis C Virus Antibody Negative (Negative)
== END 2023-07-16 15:12 | disposition home or self-care (01) ==
LOC: ANHGOSHLAB 15:12
PROVIDERS: Visit Provider Nurse Practitioner Family
DX: R74.8 Abnormal levels of other serum enzymes (principal)
CPT/HCPCS: 36415; 80074

== ENCOUNTER → 2023-07-22 08:56 | Outpatient (CLI) | payer BC, SELFPAY ==
--- NOTE | ~2023-07-22 | US_ITS ---
Abdominal Sonogram: Real-time sonographic imaging of the abdomen was performed. Clinical History: Abnormal serum enzyme levels Findings: The liver appears echogenic, with no evidence of mass lesion or bile duct dilatation. Main portal vein demonstrates normal direction of flow. The spleen is normal in size without evidence of focal lesion. The gallbladder is well distended, and appears normal with no evidence of gallstone or wall thickening. The common bile duct measures 6 mm. The visualized pancreas, aorta, and IVC are un remarkable. The right kidney measures 13.0 cm in length and the left kidney measures 12.2 cm. There is no hydronephrosis or renal calculus. Impression: Unremarkable abdominal ultrasound. Reviewed, dictated and finalized at location . Impression: Unremarkable abdominal ultrasound.
== END ==
PROVIDERS: PCP Nurse Practitioner Family; Visit Provider Nurse Practitioner Family
DX: R74.8 Abnormal levels of other serum enzymes (principal)
CPT/HCPCS: 76700

== ENCOUNTER 2023-08-16 09:00 | Emergency (ER) | payer BC, SELFPAY ==
--- NOTE | ~2023-08-16 | US_ITS ---
EXAMINATION: US pelvic complete DATE: 08/16/2023 12:08 INDICATION: Right adnexal pain TECHNIQUE: Multiple transabdominal sonographic images of the pelvis were obtained. COMPARISON: Ultrasound dated 05/16/[address] dated 08/16/2023 FINDINGS: The uterus measures 12.2 x 5.4 x 6.8 cm. The endometrial complex is unable to be clearly delineated transabdominal imaging precluding thickness measurement. The right ovary measures 5.4 x 5.5 x 5.0 cm and contains an approximately 4 cm anechoic cyst/follicle. The left ovary is not definitively. Along the periphery of the right ovary unclear whether this within the ovary or at the adjacent uterus. Bot h ovaries are visualized and appear to enhance on the prior contrast enhanced CT . There is no free f luid in the pelvis. IMPRESSION: 1. Limited visualization of the uterus and right ovary and nonvisualized left ovary due to transabdom inal technique. 2. Approximately 4 cm anechoic right ovarian cyst/follicle. Reviewed, dictated and finalized at location A. IMPRESSION: 1. Limited visualization of the uterus and right ovary and nonvisualized left o vary due to transabdominal technique. 2. Approximately 4 cm anechoic right ovarian cyst/follicle.
--- NOTE | ~2023-08-16 | US_ITS ---
EXAMINATION: US pelvic complete w TV DATE: 08/16/2023 13:33 INDICATION: Right adnexal pain TECHNIQUE: Multiple transabdominal and endovaginal sonographic images of the pelvis were obtained. COMPARISON: Ultrasound and CT from today FINDINGS: The uterus measures 11.2 x 5.9 x 6.2 cm. The endometrial complex measures 3 mm. There are m ultiple nabothian cysts of the cervix. The right ovary measures 5.5 x 4.4 x 5.3 cm. The left ovary me asures 2.8 x 1.6 x 2.3 cm. There is normal vascular flow in the ovaries. There is no free fluid in th e pelvis. IMPRESSION: 1. No sonographic correlate for the patient's symptoms. Reviewed, dictated and finalized at location B. 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
--- NOTE | ~2023-08-16 | CT_ITS ---
CT of the Abdomen and Pelvis: Indication: Abdominal pain Technique: 2.5 mm axial scans were obtained through the abdomen and pelvis following intravenous adm inistration of 100 cc of Omnipaque 350. Dose reduction technique was used on this scan by utilizing a utomated exposure control and iterative reconstruction technique. The dose-length product (DLP) was 1 467.53 mGy-cm. COMPARISON: 06/30/2022 Findings: Scans through the lung bases are unremarkable. There is diffuse fatty infiltration of the liver. The spleen, pancreas, gallbladder, adrenals and kid neys are within normal limits. No evidence of aortic aneurysm. No lymphadenopathy. No bowel obstruction or bowel wall thickening. There is no evidence to suggest acute appendicitis. Images through the pelvis were performed. Urinary bladder unremarkable. Prominent nabothian cysts are present. 4.1 cm right adnexal cyst present. No ascites. Impression: 4.1 cm right ovarian cyst. Consider ultrasound if there is clinical concern for torsion. Diffuse fatty infiltration of liver. Reviewed, dictated and finalized at [facility]. LOADER Impression: 4.1 cm right ovarian cyst. Consider ultrasound if there is clinical concern for torsion. Diffuse fatty infiltration of liver.
[2023-08-16 09:01] VITALS: BP 149/80; PULSE 81; RESP 22; TEMP 36.3; O2SAT 99
[2023-08-16 09:15] LABS: Basophils Percent Auto 0.4 % (0.2-1.2); Eosinophils Absolute Auto 0.1 K/mm3 (0-0.3); Eosinophils Percent Auto 1.3 % (0-4.4); Hematocrit 46.1 % (37.0-47.0); Hemoglobin 14.6 g/dL (12.0-15.0); Immature Granulocyte Absolute 0.03 K/mm3 (0.00-0.031); Immature Granulocyte Percent A 0.4 % (0-0.5); Lymphocytes Absolute Auto 2.26 K/mm3 (0.9-3.2); Lymphocytes Percent Auto 28.4 % (18.3-44.2); Mean Corpuscular HGB Conc 31.7 g/dl (32-36); Mean Corpuscular Hemoglobin 28.6 pg (26-34); Mean Corpuscular Volume 90.2 fl (80-100); Mean Platelet Volume 9.3 fl (7.4-10.4); Monocytes Absolute Auto 0.5 K/mm3 (0.1-0.6); Monocytes Percent Auto 5.8 % (2.6-8.5); Neutrophils Absolute Auto 5.1 K/mm3 (1.3-6.7); Neutrophils Percent Auto 63.7 % (45.5-73.1); Platelet Count Result 288 k/mm3 (150-375); Red Blood Count 5.11 M/mm3 (4.2-5.4); Red Cell Distribution Width 13.7 % (11.5-14.5)
[2023-08-16 09:25] LABS: Alanine Aminotransferase 137 U/L (6-35); Albumin Level 4.5 g/dL (3.5-5.1); Alkaline Phosphatase 79 U/L (38-126); Anion Gap 12 mmol/L (8-16); Aspartate Amino Transferase 84 U/L (14-36); Bilirubin,Total 0.8 mg/dL (0.2-1.3); Blood Urea Nitrogen 9 mg/dL (7-17); Calcium 8.8 mg/dL (8.4-10.2); Carbon Dioxide 20 mmol/L (22-30); Chloride 105 mmol/L (98-107); Estimated CRCL calculation 150 ml/min; Estimated Glomerular Filt Rate > 60; Glucose 115 mg/dL (65-110); Lipase 66 U/L (23-300); Potassium 4.4 mmol/L (3.4-5.0); Sodium 137 mmol/L (137-145)
[2023-08-16 10:24] VITALS: BP 122/59; PULSE 68; RESP 20; O2SAT 98
[2023-08-16 10:28] LABS: Appearance Urine Clear (Clear); Bacteria Urine None Seen /hpf; Bilirubin Urine Negative (Negative); Blood Urine Negative (Negative); Color Urine Yellow (Yellow); Glucose Urine UA Negative (Negative); Ketones Urine Negative (Negative); Leukocyte Esterase Ur 2+ LEU/UL (Negative); Nitrate Urine Negative (Negative); Non Pathogenic Casts 0-2; Protein Urine Negative (Negative); RBC Urine 0-2 /hpf (0-2); Specific Grav Ur 1.007 (1.001-1.035); Squamous Epithelial Cell Urine Few /hpf (Few); Urobilinogen Urine 0.2 mg/dL (<2.0); WBC Urine 21-50 /hpf
[2023-08-16 10:32] LABS: Add Urine Microscopic? YES
[2023-08-16] MEDS: ONDANSETRON INJ 4 MG/2 ML VIAL IV PUSH (10:53)
[2023-08-16] MEDS: SODIUM CHLORIDE 0.9% IV 1,000 ML 999 ML IV CONT (10:53)
[2023-08-16] MEDS: MORPHINE SULFATE (*CRX) 4 MG/ML INJ IV PUSH (10:54)
[2023-08-16 10:57] VITALS: BP 135/88; PULSE 83; RESP 15; O2SAT 100
--- NOTE | 2023-08-16 11:30 | ED.GENADULT ---
HPI - General Adult General Chief complaint: Abdominal Pain Stated complaint: RLQ pain sudden onset 0800 Time Seen by Provider: 08/16/23 10:12 History of Present Illness HPI narrative: Patient is a 43-year-old female who presents ER with sudden onset right-sided abdominal pain. Occurred earlier this morning. Sharp and nonradiating. No alleviating factors. No diarrhea/nausea/vomiting. Denies vaginal bleeding or discharge. No urinary frequency urgency or dysuria. Related Data Home Medications Medication Instructions Recorded Confirmed moxifloxacin 0.5 % eye drops drp 05/23/22 07/28/23 cetirizine 10 mg tablet (Zyrtec) 10 mg PO DAILY PRN 02/23/23 07/28/23 fluticasone propionate 50 1 spray intranasal DAILY 05/21/23 07/28/23 mcg/actuation nasal spray,suspension (Flonase Allergy Relief) Allergies Allergy/AdvReac Type Severity Reaction Status Date / Time NSAIDS (Non-Steroidal Allergy Severe face Verified 08/16/23 10:10 Anti-Inflamma swelling aspirin Allergy Unknown Swelling Verified 08/16/23 10:10 ciprofloxacin AdvReac Severe NAUSEA AND Verified 08/16/23 10:10 DIARRHEA amoxicillin AdvReac Unknown Diarrhea Verified 08/16/23 10:40 clarithromycin AdvReac Unknown Vomiting Verified 08/16/23 10:40 erythromycin base AdvReac Unknown Vomiting Verified 08/16/23 10:40 midazolam AdvReac Unknown Hallucinati Verified 08/16/23 10:40 ng tramadol AdvReac Unknown Hallucinati Verified 08/16/23 10:40 ng Review of Systems Review of Systems: All systems reviewed & are unremarkable except as noted in HPI and below Constitutional: Constitutional: Denies chills, Denies fatigue and Denies fever(s) Cardiovascular: Cardiovascular: Denies chest pain, Denies rapid heart rate and Denies radiating jaw, neck or arm pain Respiratory: Respiratory: Reports no additional respiratory complaints Gastrointestinal: Gastrointestinal: Reports abdominal pain, Denies diarrhea, Denies nausea and Denies vomiting Genitourinary: Genitourinary: Reports no additional female genitourinary complaints PMFSH Past Medical History Medical History Bilateral anterior knee pain Celiac disease delivery delivered 2005 and 2007 Depression (~2009) Diverticulitis (~2019) Endometriosis Enlarged tonsils History of nephrolithotomy with removal of calculi 2013 History of shingles Prediabetes Scoliosis 7 kevin and screws Shingles Vitamin D deficiency Surgical History Surgical History H/O breast biopsy History of back surgery 1994 History of D&C History of lithotripsy History of tonsillectomy Hx of inguinal hernia repair Family History Family History Father Family history of diabetes mellitus in first degree relative Depression Skin and subcutaneous tissue complication after insertion of filling material under skin Mother Asthma Breast cancer Sibling Asthma Depression Other Asthma Grandparent Hypertension Heart disease Grandparent Asthma Diabetes mellitus Hypertension Heart disease Thyroid disorder Other Family history of allergic disorder Social History Social History Smoking status: Never smoker Alcohol intake: current Alcohol use details: rarely Substance use: never Substance use type: does not use Lack of Transportation: No Lack of Food: Never True Current Housing: I Have Housing Concerned About Future Housing: No Difficulty Paying Gas/Electric Bills: No Difficulty Paying for Meds: No Currently Unemployed: No Education: Master's Degree or Higher Difficulty w/ Childcare or Family Care: No Living arrangements: with family 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
[2023-08-16 11:43] VITALS: BP 132/79; PULSE 66; RESP 18; O2SAT 98
[2023-08-16 12:12] VITALS: BP 128/79; PULSE 67; RESP 13; O2SAT 98
[2023-08-16 14:08] VITALS: BP 111/60; PULSE 75; RESP 18; O2SAT 98
== END 2023-08-16 14:10 | disposition home or self-care (01) ==
PROVIDERS: Emergency Provider Emergency Medicine; PCP Nurse Practitioner Family
DX: N83.201 Unspecified ovarian cyst, right side (principal); K76.0 Fatty (change of) liver, not elsewhere classified; K90.0 Celiac disease; N80.9 Endometriosis, unspecified; R73.03 Prediabetes; E55.9 Vitamin D deficiency, unspecified; Z87.442 Personal history of urinary calculi
CPT/HCPCS: 36415; 74177; 76830; 76856; 80053; 81001; 81025; 83690; 85025; 87086; 87088; 96361; 96374; 96375; 99284; J2270; J2405; J7030; Q9967

== ENCOUNTER 2024-03-26 12:23 | Emergency (ER) | payer BC, SELFPAY ==
[2024-03-26 12:49] VITALS: BP 123/86; PULSE 74; RESP 16; TEMP 36.6; O2SAT 98
--- NOTE | 2024-03-26 13:02 | ED.URI ---
HPI - URI/Sore Throat General Chief Complaint: Upper Respiratory Infection Stated Complaint: sorethroat,congestion Time Seen by Provider: 03/26/24 12:51 Source: patient and RN notes reviewed Mode of arrival: ambulatory Limitations: no limitations History of Present Illness HPI Narrative: Patient presents today with a 5 day history of sore throat, cough, nasal congestion, postnasal drip shortness of breath with exertion. Denies fever, body aches. No history of asthma or COPD. She has tried Tylenol and cough syrup without much relief. She just arrived back home from [place] on vacation. Daughter is sick with similar symptoms. Related Data Home Medications Medication Instructions Recorded Confirmed cetirizine 10 mg tablet (Zyrtec) 10 mg PO DAILY PRN Allergy Symptoms 02/23/23 03/26/24 fluticasone propionate 50 1 spray intranasal DAILY PRN 11/23/23 03/26/24 mcg/actuation nasal Allergy Symptoms spray,suspension (Flonase Allergy Relief) multivitamin (Daily Multi-Vitamin 1 tablet PO DAILY 11/23/23 03/26/24 tablet) Allergies Allergy/AdvReac Type Severity Reaction Status Date / Time aspirin Allergy Intermediate Swelling Verified 03/26/24 12:51 NSAIDS (Non-Steroidal Allergy Intermediate face Verified 03/26/24 12:30 Anti-Inflamma swelling midazolam AdvReac Severe Hallucinati Verified 03/26/24 12:30 ng tramadol AdvReac Severe Hallucinati Verified 03/26/24 12:30 ng amoxicillin AdvReac Intermediate Diarrhea Verified 03/26/24 12:30 ciprofloxacin AdvReac Intermediate NAUSEA AND Verified 03/26/24 12:30 DIARRHEA clarithromycin AdvReac Intermediate Vomiting Verified 03/26/24 12:30 erythromycin base AdvReac Intermediate Vomiting Verified 03/26/24 12:30 Review of Systems Review of Systems: CONSTITUTIONAL: Denies body aches, fever, chills, or sweats. EYES: Denies visual changes, redness, or discharge. ENT: Denies rhinorrhea, or otalgia.+ sore throat, congestion, postnasal drip CARDIOVASCULAR: Denies chest pain, palpitations, or edema. RESPIRATORY:+ cough, shortness of breath with exertion GASTROINTESTINAL: Denies abdominal pain, nausea, vomiting, or diarrhea. GENITOURINARY: Denies dysuria or hematuria. SKIN: Denies rash, itching, or wounds. MUSCULOSKELETAL: Denies back pain, joint pain, or myalgia. NEUROLOGIC: Denies headache, numbness, tingling, or weakness. PSYCH: Denies depression or anxiety. [facility] Past Medical History Medical History Bilateral anterior knee pain Celiac disease delivery delivered 2005 and 2007 Chronic venous insufficiency of lower extremity Depression (~2009) Diverticulitis (~2019) Endometriosis Enlarged tonsils History of nephrolithotomy with removal of calculi 2013 History of shingles Lymphedema of both lower extremities Prediabetes Scoliosis 7 kevin and screws Shingles Vitamin D deficiency Surgical History Surgical History H/O breast biopsy History of back surgery 1994 History of D&C History of lithotripsy History of tonsillectomy Hx of inguinal hernia repair Family History Family History Father Family history of diabetes mellitus in first degree relative Depression Skin and subcutaneous tissue complication after insertion of filling material under skin Mother Asthma Breast cancer Sibling Asthma Depression Other Asthma Grandparent Hypertension Heart disease Grandparent Asthma Diabetes mellitus Hypertension Heart disease Thyroid disorder Other Family history of allergic disorder Social History Social History Smoking status: Never smoker Alcohol intake: current Alcohol use details: rarely Substance use: never Substance use type: does not use Lack of Transportation: N
== END 2024-03-26 13:15 | disposition home or self-care (01) ==
PROVIDERS: Emergency Provider Nurse Practitioner; PCP Family Medicine
DX: J40 Bronchitis, not specified as acute or chronic (principal); J06.9 Acute upper respiratory infection, unspecified; Z20.822 Contact with and (suspected) exposure to COVID-19; K90.0 Celiac disease; N80.9 Endometriosis, unspecified; R73.03 Prediabetes; M41.9 Scoliosis, unspecified
CPT/HCPCS: 87081; 87426; 87880; 99213; G0463

== ENCOUNTER 2024-09-11 04:41 | Inpatient (IN) | payer BC, SELFPAY ==
[2024-09-11] VITALS (26 sets, daily range): BP systolic 111–182; BP diastolic 59–102; PULSE 58–117; RESP 13–22; TEMP 35.8–36.8; O2SAT 95–100; BMI 42.5
--- NOTE | ~2024-09-11 | US_ITS ---
BILATERAL LOWER EXTREMITY VENOUS ULTRASOUND Ordering provider: Theresa Holden APRN History: . elevated troponin of unknown etiology . Comparison: None. FINDINGS: RIGHT LOWER EXTREMITY VEINS: --COMMON FEMORAL: Patent and free of thrombus. Normal compressibility, phasic flow and augmentation. --PROXIMAL SUPERFICIAL FEMORAL: Patent and free of thrombus. Normal compressibility, phasic flow and augmentation. --DISTAL SUPERFICIAL FEMORAL: Patent and free of thrombus. Normal compressibility, phasic flow and au gmentation. --POPLITEAL: Patent and free of thrombus. Normal compressibility, phasic flow and augmentation. --POSTERIOR TIBIAL: Patent and free of thrombus. Normal compressibility, phasic flow and augmentation . LEFT LOWER EXTREMITY VEINS: --COMMON FEMORAL: Patent and free of thrombus. Normal compressibility, phasic flow and augmentation. --PROXIMAL SUPERFICIAL FEMORAL: Patent and free of thrombus. Normal compressibility, phasic flow and augmentation. --DISTAL SUPERFICIAL FEMORAL: Patent and free of thrombus. Normal compressibility, phasic flow and au gmentation. --POPLITEAL: Patent and free of thrombus. Normal compressibility, phasic flow and augmentation. --POSTERIOR TIBIAL: Patent and free of thrombus. Normal compressibility, phasic flow and augmentation . IMPRESSION: Negative bilateral lower extremity venous US. No deep vein thrombosis. Reviewed, dictated and finalized at location A. EL LOADER OPERATOR
--- NOTE | ~2024-09-11 | XR_ITS ---
Portable chest x-ray Comparison: 08/31/2022 Clinical History: Chest pain Findings: Probable mild central congestive change, without focal consolidation or pleural effusion. Cardiomediastinal silhouette is stable. Stable spinal fixation hardware partially imaged the lumbar spine. Impression: Probable mild central congestive change. Reviewed, dictated and finalized at [facility]. ARY MANAGER Impression: Probable mild central congestive change.
--- NOTE | ~2024-09-11 | CT_ITS ---
CTA chest PE protocol Ordering provider: Theresa Holden APRN History: 44 years Female with . elevated troponin, exertional SOB . Comparison: None. Technique: CT angiogram chest was performed following timed intravenous injection of contrast. Thin s lice axial images and reformatted coronal images were obtained. Three dimensional reformatted images of the chest were also obtained using a [employer] workstation. . Automated exposure control and iterati ve reconstruction technique were employed. The dose-length product was 978.51 mGy-cm. 100 mL Omnipaque 350 was given IV. Findings: PULMONARY ARTERIES: No pulmonary embolus. VISUALIZED THORACIC INLET: Normal. MEDIASTINUM: Aorta/coronary arteries: The thoracic aorta is normal. Heart/other: The heart is not enlarged. Lymph nodes: No mediastinal or hilar adenopathy. LUNGS: No pulmonary nodules or masses. No infiltrates or effusions. No pneumothorax. Dependent atelectatic c hanges. VISUALIZED UPPER ABDOMEN: Fat infiltration of the liver. Slightly dilated left renal pelvis or parape lvic cyst. Otherwise, the visualized upper abdomen is normal. MUSCULOSKELETAL: Soft tissues: The superficial soft tissues are normal. Bones: Age appropriate degenerative changes of the spine. Small caliber left 10 th rib which may be p ostsurgical. Postoperative changes in the thoracolumbar area. IMPRESSION: 1. No pulmonary embolism. 2. No acute cardiopulmonary pathology. 3. Fat infiltration of the liver. 4. Possibly dilated left renal pelvis versus parapelvic cyst. Reviewed, dictated and finalized at location A. GER THERAPY
--- NOTE | ~2024-09-11 | US_ITS ---
Limited Abdominal Sonogram: Real-time sonographic imaging of the right upper quadrant was performed. Clinical History: Epigastric pain Findings: The liver appears echogenic, with no evidence of mass lesion or bile duct dilatation. Main portal vein demonstrates normal direction of flow. The gallbladder is well distended, and demonstrat e 3 mm gallbladder wall polyp. The common bile duct measures 5 mm. The visualized pancreas, aorta, a nd IVC are unremarkable. Impression: Diffuse fatty infiltration of liver. 3 mm gallbladder wall polyp. Reviewed, dictated and finalized at location M. INATION PRESSER Impression: Diffuse fatty infiltration of liver. 3 mm gallbladder wall polyp.
--- NOTE | 2024-09-11 04:45 | ECG_ITS ---
Test Date: 2024-09-11 04:53:14 Measurements Intervals [place] Rate: 67 P: -18 [place]: 135 QRS: 6 QRSD: 106 T: 5 QT: 403 QTc: 428 Interpretive Statements SINUS RHYTHM POSSIBLE INFERIOR MYOCARDIAL INFARCTION , PROBABLY OLD [30 ms Q WAVE IN II/aVF] ABNORMAL ECG Electronically Signed On 09-11-2024 09:01:53 PAPER PRODUCTS SUPERVISOR by Parveen Hines M.D.
[2024-09-11 05:07] LABS: Basophils Percent Auto 0.3 % (0.2-1.2); Eosinophils Percent Auto 0.3 % (0-4.4); Hematocrit 45.8 % (37.0-47.0); Hemoglobin 14.6 g/dL (12.0-15.0); Immature Granulocyte Absolute 0.08 K/mm3 (0.00-0.031); Immature Granulocyte Percent A 0.6 % (0-0.5); Lymphocytes Absolute Auto 2.38 K/mm3 (0.9-3.2); Lymphocytes Percent Auto 18.7 % (18.3-44.2); Mean Corpuscular HGB Conc 31.9 g/dl (32-36); Mean Corpuscular Hemoglobin 28.6 pg (26-34); Mean Corpuscular Volume 89.6 fl (80-100); Mean Platelet Volume 9.7 fl (7.4-10.4); Monocytes Absolute Auto 0.5 K/mm3 (0.1-0.6); Monocytes Percent Auto 3.8 % (2.6-8.5); Neutrophils Absolute Auto 9.7 K/mm3 (1.3-6.7); Neutrophils Percent Auto 76.3 % (45.5-73.1); Platelet Count Result 285 k/mm3 (150-375); Red Blood Count 5.11 M/mm3 (4.2-5.4); White Blood Count 12.7 K/mm3 (4.5-10.0)
[2024-09-11] MEDS: PANTOPRAZOLE SODIUM IV 40 MG VIAL IV PUSH (05:13)
--- NOTE | 2024-09-11 05:21 | PC.NURSE ---
pt refused morphine, zofran, and nitroglycerin at this time. edp dr. ayon aware.
[2024-09-11 05:31] LABS: Alanine Aminotransferase 82 U/L (6-35); Albumin Level 4.7 g/dL (3.5-5.1); Alkaline Phosphatase 83 U/L (38-126); Anion Gap 11 mmol/L (4-12); Aspartate Amino Transferase 45 U/L (14-36); Bilirubin,Total 0.8 mg/dL (0.2-1.3); Blood Urea Nitrogen 14 mg/dL (7-17); Calcium 9.1 mg/dL (8.4-10.2); Carbon Dioxide 19 mmol/L (22-30); Chloride 105 mmol/L (98-107); Estimated CRCL calculation 186 ml/min; Estimated Glomerular Filt Rate > 60; Glucose 212 mg/dL (65-110); Lipase 210 U/L (23-300); Potassium 4.4 mmol/L (3.4-5.0); Sodium 135 mmol/L (137-145); Troponin I < 0.012 ng/mL (0.000-0.034)
--- NOTE | 2024-09-11 05:38 | ED.GENADULT ---
HPI - General Adult General Chief complaint: Chest Pain <Albino Bae MD - Last Filed: 09/11/24 05:42> Stated complaint: chest pain <Albino Bae MD - Last Filed: 09/11/24 05:42> Time Seen by Provider: 09/11/24 04:48 <Albino Bae MD - Last Filed: 09/11/24 05:42> History of Present Illness HPI narrative: Patient 44-year-old female who presents emergency department chief complaint of chest pain. Patient reports that she started having discomfort in her chest that woke her up from sleep patient reports no prior cardiac disease reports that she had some nausea with this denies diaphoresis reports that she has not had a stress test or cardiac catheterization in the past <Albino Bae MD - Last Filed: 09/11/24 05:42> Related Data Home medications: Home Medications Medication Instructions Recorded Confirmed cetirizine 10 mg tablet (Zyrtec) 10 mg PO DAILY PRN Allergy Symptoms 02/23/23 09/08/24 fluticasone propionate 50 1 spray intranasal DAILY PRN 11/23/23 09/08/24 mcg/actuation nasal Allergy Symptoms spray,suspension (Flonase Allergy Relief) multivitamin (Daily Multi-Vitamin 1 tablet PO DAILY 11/23/23 09/08/24 tablet) <Albino Bae MD - Last Filed: 09/11/24 05:42> Allergies/adverse reactions: Allergies Allergy/AdvReac Type Severity Reaction Status Date / Time aspirin Allergy Intermediate Swelling Verified 09/11/24 05:14 NSAIDS (Non-Steroidal Allergy Intermediate face Verified 09/11/24 05:14 Anti-Inflamma swelling midazolam AdvReac Severe Hallucinati Verified 09/11/24 05:14 ng tramadol AdvReac Severe Hallucinati Verified 09/11/24 05:14 ng amoxicillin AdvReac Intermediate Diarrhea Verified 09/11/24 05:14 ciprofloxacin AdvReac Intermediate NAUSEA AND Verified 09/11/24 05:14 DIARRHEA clarithromycin AdvReac Intermediate Vomiting Verified 09/11/24 05:14 erythromycin base AdvReac Intermediate Vomiting Verified 09/11/24 05:14 <Albino Bae MD - Last Filed: 09/11/24 05:42> Review of Systems Review of Systems: A 10 system review of systems was completed on the patient and is negative except for what is stated in the HPI. Nursing and ancillary documentation was reviewed. <Albino Bae MD - Last Filed: 09/11/24 05:42> [facility] Past Medical History Medical History: Medical History Bilateral anterior knee pain Celiac disease delivery delivered 2005 and 2007 Chronic venous insufficiency of lower extremity Depression (~2009) Diverticulitis (~2019) Endometriosis Enlarged tonsils History of nephrolithotomy with removal of calculi 2014 History of shingles Lymphedema of both lower extremities Prediabetes Scoliosis 7 kevin and screws Shingles Vitamin D deficiency <Albino Bae MD - Last Filed: 09/11/24 05:42> Surgical History Surgical History: Surgical History H/O breast biopsy History of back surgery 1994 History of D&C History of lithotripsy History of tonsillectomy Hx of inguinal hernia repair <Albino Bae MD - Last Filed: 09/11/24 05:42> Family History Family History: Family History Father Family history of diabetes mellitus in first degree relative Depression Skin and subcutaneous tissue complication after insertion of filling material under skin Mother Asthma Breast cancer Sibling Asthma Depression Other Asthma Grandparent Hypertension Heart disease Grandparent Asthma Diabetes mellitus Hypertension Heart disease Thyroid disorder Other Family history of allergic disorder <Albino Bae MD - Last Filed: 09/11/24 05:42> Social History Social History: Social History Smoking status: Never smoker Alcohol intake: current Alcohol use details: rarely Substance use: never Substance use type: does not use Lack of Transportation: No Lack of Food: Never True Current Housing: I Have Housing Concerned About Future Housing: No Difficulty Paying Gas/Electric Bills: No Difficulty Paying for Meds: No Currently Unemployed: No Education: Master's Degree or Higher Difficulty w/ Childcare or Family Care: No Living arrangements: with family 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 HEAD: Normocephalic, atraumatic. EYES: PERRLA and EOMI. ENT: Nares clear, no rhinorrhea or epistaxis. Mucous membranes moist. NECK: Supple. CHEST: Clear to auscultation. No respiratory distress. HEART: Regular rate and rhythm. No murmur heard. Normal peripheral pulses. ABDOMEN: Soft, nontender, nondistended, normal active bowel sounds. EXTREMITIES: Normal range of motion. No edema. SKIN: Warm, dry, no rash. NEURO: No focal deficits. Alert and oriented x3. PSYCH: Normal mood and affect. <Albino Bae MD - Last Filed: 09/11/24 05:42> Course Course Emergency Course: patient signed out to me pending ultrasound and 3 hour troponin. Ultrasound as below without acute surgical process. Second EKG is performed at 8:19 a.m. a.m. and does have a T-wave inversion isolated to lead 3 with questionably biphasic T-wave in AVF but otherwise upright in normal in contiguous inferior lead 2. No other T-wave inversions. Good R-wave progression across precordial leads. Patient's 3 hour troponin is elevated. I did inform patient and discuss with her and her . She notes that approximately 20 minutes before I came in she was completely pain-free for about 15 minutes but then it started to recur again. However, patient has declined medications other than the ondansetron and a GI cocktail. She states that she does not want to be loopy and out of it and wants to be able to understand what is going on so she had declined any nitroglycerin or morphine. We did discuss these medications and they wrote and the dosing and she verifies understanding. We reviewed her history and in terms of her risk factors she does not have a diagnosis of hypertension, hyperlipidemia, diabetes mellitus, prior AK or TIA or CVA. She is a nonsmoker. She is obese. No first-degree family history of myocardial infarction although her mother does have an unknown heart condition. Her grandfather's x2 did have myocardial infarctions of exact details unknown. Overall then, her heart score is 2 but with 2nd positive troponin so patient will require admission for further workup and serial monitoring. Discussed with on-call hospitalist as well as on-call plug and mold finisher. Heparin is ordered as are p.r.n. morphine and nitroglycerin orders. Patient will go to the IMU. Stable at this time. <Diane Sierra MD - Last Filed: 09/11/24 09:31> Vital Signs Vital signs: Vital Signs Temperature 96.4 F L 09/11/24 04:42 Pulse Rate 117 H 09/11/24 04:42 Respiratory Rate 18 09/11/24 04:42 Blood Pressure 161/93 H 09/11/24 04:42 Pulse Oximetry 98 09/11/24 04:42 Oxygen Delivery Room Air 09/11/24 04:42 Temperature 96.4 F L 09/11/24 04:42 Pulse Rate 65 09/11/24 09:19 Respiratory Rate 18 09/11/24 09:19 Blood Pressure 151/90 H 09/11/24 09:19 Pulse Oximetry 99 09/11/24 09:19 Oxygen Delivery Room Air 09/11/24 05:05 <Albino Bae MD - Last Filed: 09/11/24 05:42> Vital Signs Temperature 96.4 F L 09/11/24 04:42 Pulse Rate 117 H 09/11/24 04:42 Respiratory Rate 18 09/11/24 04:42 Blood Pressure 161/93 H 09/11/24 04:42 Pulse Oximetry 98 09/11/24 04:42 Oxygen Delivery Room Air 09/11/24 04:42 Temperature 96.4 F L 09/11/24 04:42 Pulse Rate 65 09/11/24 09:19 Respiratory Rate 18 09/11/24 09:19 Blood Pressure 151/90 H 09/11/24 09:19 Pulse Oximetry 99 09/11/24 09:19 Oxygen Delivery Room Air 09/11/24 05:05 <Diane Sierra MD - Last Filed: 09/11/24 09:31> Medical Decision Making Vital Signs Vital Signs: Vital Signs Temperature 96.4 F L 09/11/24 04:42 Pulse Rate 117 H 09/11/24 04:42 Respiratory Rate 18 09/11/24 04:42 Blood Pressure 161/93 H 09/11/24 04:42 Pulse Oximetry 98 09/11/24 04:42 Oxygen Delivery Room Air 09/11/24 04:42 Temperature 96.4 F L 09/11/24 04:42 Pulse Rate 65 09/11/24 09:19 Respiratory Rate 18 09/11/24 09:19 Blood Pressure 151/90 H 09/11/24 09:19 Pulse Oximetry 99 09/11/24 09:19 Oxygen Delivery Room Air 09/11/24 05:05 <Albino Bae MD - Last Filed: 09/11/24 05:42> Vital Signs Temperature 96.4 F L 09/11/24 04:42 Pulse Rate 117 H 09/11/24 04:42 Respiratory Rate 18 09/11/24 04:42 Blood Pressure 161/93 H 09/11/24 04:42 Pulse Oximetry 98 09/11/24 04:42 Oxygen Delivery Room Air 09/11/24 04:42 Temperature 96.4 F L 09/11/24 04:42 Pulse Rate 65 09/11/24 09:19 Respiratory Rate 18 09/11/24 09:19 Blood Pressure 151/90 H 09/11/24 09:19 Pulse Oximetry 99 09/11/24 09:19 Oxygen Delivery Room Air 09/11/24 05:05 <Diane Sierra MD - Last Filed: 09/11/24 09:31> Lab Data Result diagrams: 09/11/24 05:02 09/11/24 05:02 <Albino Bae MD - Last Filed: 09/11/24 05:42> Labs: Lab Results 09/11/24 09/11/24 09/11/24 Range/Units 05:02 06:02 08:25 WBC 12.7 H (4.5-10.0) K/mm3 RBC 5.11 (4.2-5.4) M/mm3 Hgb 14.6 (12.0-15.0) g/dL Hct 45.8 (37.0-47.0) % MCV 89.6 (80-100) fl MCH 28.6 (26-34) pg MCHC 31.9 L (32-36) g/dl RDW 14.0 (11.5-14.5) % Plt Count 285 (150-375) k/mm3 MPV 9.7 (7.4-10.4) fl Immature Gran % (Auto) 0.6 H (0-0.5) % Neut % (Auto) 76.3 H (45.5-73.1) % Lymph % (Auto) 18.7 (18.3-44.2) % [place] % (Auto) 3.8 (2.6-8.5) % Eos % (Auto) 0.3 (0-4.4) % Baso % (Auto) 0.3 (0.2-1.2) % Lymph # (Auto) 2.38 (0.9-3.2) K/mm3 [place] # (Auto) 0.5 (0.1-0.6) K/mm3 Eos # (Auto) 0.0 (0-0.3) K/mm3 Baso # (Auto) 0.0 (0.0-0.1) K/mm3 Abs Immat Gran (auto) 0.08 H (0.00-0.031) K/mm3 Absolute Neuts (auto) 9.7 H (1.3-6.7) K/mm3 Absolute Nucleated RBC 0.000 (0.0-0.012) K/mm3 Nucleated RBC % 0.0 (0.0-0.2) % PT 13.4 (11.1-14.7) Seconds INR 1.0 APTT 23.4 (22.3-36.8) Seconds Sodium 135 L (137-145) mmol/L Potassium 4.4 (3.4-5.0) mmol/L Chloride 105 (98-107) mmol/L Carbon Dioxide 19 L (22-30) mmol/L Anion Gap 11 (4-12) mmol/L BUN 14 D (7-17) mg/dL Creatinine 0.40 L (0.7-1.0) mg/dL Estim Creat Clear Calc 186 ml/min Estimated GFR > 60 (59 - ) Glucose 212 H (65-110) mg/dL Calcium 9.1 (8.4-10.2) mg/dL Total Bilirubin 0.8 (0.2-1.3) mg/dL AST 45 H (14-36) U/L ALT 82 H (6-35) U/L Alkaline Phosphatase 83 (38-126) U/L Troponin I < 0.012 0.189 H* D (0.000-0.034) ng/mL Total Protein 8.0 (6.3-8.2) g/dL Albumin 4.7 (3.5-5.1) g/dL Lipase 210 (23-300) U/L <Albino Bae MD - Last Filed: 09/11/24 05:42> Lab Results 09/11/24 09/11/24 09/11/24 Range/Units 05:02 06:02 08:25 WBC 12.7 H (4.5-10.0) K/mm3 RBC 5.11 (4.2-5.4) M/mm3 Hgb 14.6 (12.0-15.0) g/dL Hct 45.8 (37.0-47.0) % MCV 89.6 (80-100) fl MCH 28.6 (26-34) pg MCHC 31.9 L (32-36) g/dl RDW 14.0 (11.5-14.5) % Plt Count 285 (150-375) k/mm3 MPV 9.7 (7.4-10.4) fl Immature Gran % (Auto) 0.6 H (0-0.5) % Neut % (Auto) 76.3 H (45.5-73.1) % Lymph % (Auto) 18.7 (18.3-44.2) % [place] % (Auto) 3.8 (2.6-8.5) % Eos % (Auto) 0.3 (0-4.4) % Baso % (Auto) 0.3 (0.2-1.2) % Lymph # (Auto) 2.38 (0.9-3.2) K/mm3 [place] # (Auto) 0.5 (0.1-0.6) K/mm3 Eos # (Auto) 0.0 (0-0.3) K/mm3 Baso # (Auto) 0.0 (0.0-0.1) K/mm3 Abs Immat Gran (auto) 0.08 H (0.00-0.031) K/mm3 Absolute Neuts (auto) 9.7 H (1.3-6.7) K/mm3 Absolute Nucleated RBC 0.000 (0.0-0.012) K/mm3 Nucleated RBC % 0.0 (0.0-0.2) % PT 13.4 (11.1-14.7) Seconds INR 1.0 APTT 23.4 (22.3-36.8) Seconds Sodium 135 L (137-145) mmol/L Potassium 4.4 (3.4-5.0) mmol/L Chloride 105 (98-107) mmol/L Carbon Dioxide 19 L (22-30) mmol/L Anion Gap 11 (4-12) mmol/L BUN 14 D (7-17) mg/dL Creatinine 0.40 L (0.7-1.0) mg/dL Estim Creat Clear Calc 186 ml/min Estimated GFR > 60 (59 - ) Glucose 212 H (65-110) mg/dL Calcium 9.1 (8.4-10.2) mg/dL Total Bilirubin 0.8 (0.2-1.3) mg/dL AST 45 H (14-36) U/L ALT 82 H (6-35) U/L Alkaline Phosphatase 83 (38-126) U/L Troponin I < 0.012 0.189 H* D (0.000-0.034) ng/mL Total Protein 8.0 (6.3-8.2) g/dL Albumin 4.7 (3.5-5.1) g/dL Lipase 210 (23-300) U/L <Diane Sierra MD - Last Filed: 09/11/24 09:31> Discharge Plan Discharge Clinical Impression: Acute non-ST elevation myocardial infarction (NSTEMI), Chest pain, Fatty infiltration of liver, Gallbladder polyp <Albino Bae MD - Last Filed: 09/11/24 05:42> Patient Disposition: Still a Patient <Albino Bae MD - Last Filed: 09/11/24 05:42> Condition: Stable <Albino Bae MD - Last Filed: 09/11/24 05:42> Prescriptions: No Action multivitamin [Daily Multi-Vitamin] Tablet 1 tablet PO DAILY methylprednisolone [Medrol ([place])] 4 mg tablets,dose pack See Rx Instructions PO PER PKG DIR Qty: 21 0RF Rx Instructions: PO PER PKG DIR gabapentin 100 mg capsule 100 mg PO TID Qty: 30 0RF fluticasone propionate [Flonase Allergy Relief] 50 mcg/actuation spray,suspension 1 spray intranasal DAILY PRN (Reason: Allergy Symptoms) Rx Instructions: administer into each nostril cetirizine [Zyrtec] 10 mg tablet 10 mg PO DAILY PRN (Reason: Allergy Symptoms) <Albino Bae MD - Last Filed: 09/11/24 05:42> Follow-up/Referrals: Kenn Urbina MD [Primary Care Provider] - <Albino Bae MD - Last Filed: 09/11/24 05:42> Time of Disposition: 09:31 <Albino Bae MD - Last Filed: 09/11/24 05:42> 09:31 <Diane Sierra MD - Last Filed: 09/11/24 09:31>
[2024-09-11] MEDS: ONDANSETRON INJ 4 MG/2 ML VIAL IV PUSH (06:06)
[2024-09-11] MEDS: BELLADONNA ALK/PHENOB ELIX 10 ML, MAG HYDROX/ALUMINUM HYD/SIMETH 30 ML, LIDOCAINE HCL 2... PO (06:08)
[2024-09-11 06:24] LABS: Prothrombin Time 13.4 Seconds (11.1-14.7)
[2024-09-11 06:25] LABS: Partial Thromboplastin Time 23.4 Seconds (22.3-36.8)
--- NOTE | 2024-09-11 07:57 | ECG_ITS ---
Test Date: 2024-09-11 08:19:44 Measurements Intervals [place] Rate: 61 P: 40 NE: 161 QRS: 8 QRSD: 96 T: 14 QT: 431 QTc: 437 Interpretive Statements SINUS RHYTHM WITH OCCASIONAL SUPRAVENTRICULAR PREMATURE COMPLEXES ABNORMAL ECG Electronically Signed On 09-11-2024 09:02:42 BUYER ASSISTANT by Parveen Hines M.D.
[2024-09-11 08:59] LABS: Troponin I 0.189 ng/mL (0.000-0.034)
[2024-09-11] MEDS: HEPARIN SODIUM 5,000 UNITS/ML VIAL 4000 UNITS IV PUSH (09:23)
[2024-09-11] MEDS: HEPARIN SOD/D5W 100 UNITS/ML 25,000 UNITS/250 ML BAG 10 UNITS IV CONT (09:31)
--- NOTE | 2024-09-11 10:40 | PC.NURSE ---
Patient arrived from ED, alert, oriented with . Hep gtt running at 10 ml/hr. patient vitals stable.
--- NOTE | 2024-09-11 11:08 | P.CONCA_ITS ---
Assessment and Plan Assessment and plan (1) Acute non-ST elevation myocardial infarction (NSTEMI): Code(s): I21.4 - Non-ST elevation (NSTEMI) myocardial infarction Status: Acute Plan 44 yo woman with chronic back pain who had been experiencing severe pain until recently now presents with chest pain Non-STEMI -would recommend urgent cardiac catheterization given continued chest pain -she was started on heparin drip -she has aspirin allergy and should she require stent, would load with Brilinta and keep on ticagrelor monotherapy -start rosuvastatin 20 mg every evening -start metoprolol tartrate 25 mg p.o. b.i.d. -obtain a transthoracic echocardiogram History of Present Illness History of Present Illness Consult date/time: 09/11/24 11:08 Requesting physician: Albino Bae MD Reason For Visit: chest pain, NSTEMI Narrative: 44 yo woman with chronic back pain who had been experiencing severe pain until recently now presents with chest pain. Substernal and pinpoint in nature starting around 3:30am that woke her up from sleep. She also has some associated shortness of breath. Otherwise prior to this event, she has not had any chest pain or discomfort. Her only limitations were secondary to her severe back pain that was attributed to sciatica. Review of Systems Constitutional: Constitutional: Reports as per HPI Cardiovascular: Cardiovascular: Reports as per HPI Respiratory: Respiratory: Reports as per HPI PMF Past Medical History Medical History Bilateral anterior knee pain Celiac disease delivery delivered 2005 and 2007 Chronic venous insufficiency of lower extremity Depression (~2009) Diverticulitis (~2019) Endometriosis Enlarged tonsils History of nephrolithotomy with removal of calculi 2014 History of shingles Lymphedema of both lower extremities Prediabetes Scoliosis 7 kevin and screws Shingles Vitamin D deficiency Surgical History Surgical History H/O breast biopsy History of back surgery 1994 History of D&C History of lithotripsy History of tonsillectomy Hx of inguinal hernia repair Family History Family History Father Family history of diabetes mellitus in first degree relative Depression Skin and subcutaneous tissue complication after insertion of filling material under skin Mother Asthma Breast cancer Sibling Asthma Depression Other Asthma Grandparent Hypertension Heart disease Grandparent Asthma Diabetes mellitus Hypertension Heart disease Thyroid disorder Other Family history of allergic disorder Social History Social History Smoking status: Never smoker Alcohol intake: current Alcohol use details: rarely Substance use: never Substance use type: does not use Lack of Transportation: No Lack of Food: Never True Current Housing: I Have Housing Concerned About Future Housing: No Difficulty Paying Gas/Electric Bills: No Difficulty Paying for Meds: No Currently Unemployed: No Education: Master's Degree or Higher Difficulty w/ Childcare or Family Care: No Living arrangements: with family 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ed by the patient): Female Sexual Orientation (if Verbalized by the Patient): Straight or Heterosexual Spiritual care concerns: No Meds Home Medications and Allergies Home Medications Medication Instructions Recorded Confirmed Type cetirizine 10 mg tablet (Zyrtec) 10 mg PO DAILY PRN Allergy Symptoms 02/23/23 09/08/24 History fluticasone propionate 50 1 spray intranasal DAILY PRN 11/23/23 09/08/24 History mcg/actuation nasal Allergy Symptoms spray,suspension (Flonase Allergy Relief) multivitamin (Daily Multi-Vitamin 1 tablet PO DAILY 11/23/23 09/08/24 History tablet) gabapentin 100 mg capsule 100 mg PO TID #30 caps 09/08/24 09/08/24 Rx methylprednisolone 4 mg tablets in See Rx Instructions PO PER PKG DIR 09/08/24 09/08/24 Rx a dose pack (Medrol (Brandon)) #21 ea Allergies Allergy/AdvReac Type Severity Reaction Status Date / Time aspirin Allergy Intermediate Swelling Verified 09/11/24 05:14 NSAIDS (Non-Steroidal Allergy Intermediate face Verified 09/11/24 05:14 Anti-Inflamma swelling midazolam AdvReac Severe Hallucinati Verified 09/11/24 05:14 ng tramadol AdvReac Severe Hallucinati Verified 09/11/24 05:14 ng amoxicillin AdvReac Intermediate Diarrhea Verified 09/11/24 05:14 ciprofloxacin AdvReac Intermediate NAUSEA AND Verified 09/11/24 05:14 DIARRHEA clarithromycin AdvReac Intermediate Vomiting Verified 09/11/24 05:14 erythromycin base AdvReac Intermediate Vomiting Verified 09/11/24 05:14 Vital Signs Vital Signs - 24 hr 09/11/24 04:42 09/11/24 05:05 09/11/24 05:05 Temperature 35.8 C L Pulse Rate 117 H 62 Respiratory Rate 18 Blood Pressure 161/93 H Pulse Oximetry 98 100 Oxygen Delivery Room Air Room Air 09/11/24 06:12 09/11/24 07:06 09/11/24 09:19 Temperature Pulse Rate 62 58 L 65 Respiratory Rate 16 13 18 Blood Pressure 182/102 H 162/98 H 151/90 H Pulse Oximetry 100 95 99 Oxygen Delivery 09/11/24 09:36 09/11/24 10:33 Temperature 36.4 C 36.6 C Pulse Rate 61 60 Respiratory Rate 15 16 Blood Pressure 154/90 H 150/89 H Pulse Oximetry 100 100 Oxygen Delivery Exam Const: General: comfortable HENMT: Mouth: Yes moist mucous membranes Eyes: EOM: EOMs intact bilaterally Neck: Neck: no JVD Resp: Effort & Inspection: normal respiratory effort Auscultation: clear to auscultation bilaterally Cardio: Rate: regular rate Rhythm: regular rhythm GI: GI Palp: Yes Soft to palpation Neuro: Speech: normal speech Results Labs and Meds 09/11/24 05:02 09/11/24 05:02 Lab results: Cardiac Enzymes 09/11/24 09/11/24 Range/Units 05:02 08:25 AST 45 H (14-36) U/L Troponin I < 0.012 0.189 H* D (0.000-0.034) ng/mL Coagulation 09/11/24 Range/Units 06:02 PT 13.4 (11.1-14.7) Seconds APTT 23.4 (22.3-36.8) Seconds CBC 09/11/24 Range/Units 05:02 WBC 12.7 H (4.5-10.0) K/mm3 RBC 5.11 (4.2-5.4) M/mm3 Hgb 14.6 (12.0-15.0) g/dL Hct 45.8 (37.0-47.0) % Plt Count 285 (150-375) k/mm3 Lymph # (Auto) 2.38 (0.9-3.2) K/mm3 [place] # (Auto) 0.5 (0.1-0.6) K/mm3 Eos # (Auto) 0.0 (0-0.3) K/mm3 Baso # (Auto) 0.0 (0.0-0.1) K/mm3 Comprehensive Metabolic Panel 09/11/24 Range/Units 05:02 Sodium 135 L (137-145) mmol/L Potassium 4.4 (3.4-5.0) mmol/L Chloride 105 (98-107) mmol/L Carbon Dioxide 19 L (22-30) mmol/L BUN 14 D (7-17) mg/dL Creatinine 0.40 L (0.7-1.0) mg/dL Glucose 212 H (65-110) mg/dL Calcium 9.1 (8.4-10.2) mg/dL AST 45 H (14-36) U/L ALT 82 H (6-35) U/L Alkaline Phosphatase 83 (38-126) U/L Total Protein 8.0 (6.3-8.2) g/dL Albumin 4.7 (3.5-5.1) g/dL Patient Weight 09/11/24 23:59 Weight 115.9 kg
--- NOTE | 2024-09-11 11:43 | WPDHPUPDATE1 ---
History and Physical Update Update Date/Time: 09/11/24 11:43 History and Physical has been reviewed, including an updated exam of the patient. There are NO changes in the patient's condition. Risks, benefits, and alternatives have been discussed and questions answered. Patient agrees to proceed with procedure.
--- NOTE | 2024-09-11 11:43 | WPDMODSED ---
Moderate Sedation Note-Pt Data Patient Data Allergies Allergy/AdvReac Type Severity Reaction Status Date / Time aspirin Allergy Intermediate Swelling Verified 09/11/24 05:14 NSAIDS (Non-Steroidal Allergy Intermediate face Verified 09/11/24 05:14 Anti-Inflamma swelling midazolam AdvReac Severe Hallucinati Verified 09/11/24 05:14 ng tramadol AdvReac Severe Hallucinati Verified 09/11/24 05:14 ng amoxicillin AdvReac Intermediate Diarrhea Verified 09/11/24 05:14 ciprofloxacin AdvReac Intermediate NAUSEA AND Verified 09/11/24 05:14 DIARRHEA clarithromycin AdvReac Intermediate Vomiting Verified 09/11/24 05:14 erythromycin base AdvReac Intermediate Vomiting Verified 09/11/24 05:14 Home Medications Medication Instructions Recorded Confirmed Type cetirizine 10 mg tablet (Zyrtec) 10 mg PO DAILY PRN Allergy Symptoms 02/23/23 09/11/24 History fluticasone propionate 50 1 spray intranasal DAILY PRN 11/23/23 09/11/24 History mcg/actuation nasal Allergy Symptoms spray,suspension (Flonase Allergy Relief) multivitamin (Daily Multi-Vitamin 1 tablet PO DAILY 11/23/23 09/11/24 History tablet) gabapentin 100 mg capsule 100 mg PO TID #30 caps 09/08/24 09/11/24 Rx methylprednisolone 4 mg tablets in See Rx Instructions PO PER PKG DIR 09/08/24 09/11/24 Rx a dose pack (Medrol ([place]andon)) #21 ea famotidine 20 mg tablet (Pepcid AC 20 mg DAILY PRN Indigestion 09/11/24 09/11/24 History Maximum Strength) Current Medications: Active Medications Acetaminophen (Acetaminophen 325 Mg Tablet) 650 mg PO Q4H PRN PRN Reason: Mild Pain (1-3) or Fever Heparin Sodium (Porcine) (Heparin Sodium 5,000 Units/Ml Vial) 4,000 units IV PUSH PRN PRN PRN Reason: aPTT less than 55 seconds Heparin Sodium (Porcine) (Heparin Sodium 5,000 Units/Ml Vial) 3,500 units IV PUSH PRN PRN PRN Reason: aPTT 55 - 70 seconds Heparin Sodium/Dextrose (Heparin Sodium/D5w 100 Units/Ml) 25,000 units in 250 mls @ 10 mls/hr IV CONT .Q24H TARAN; Protocol Last Admin: 09/11/24 09:31 Dose: 1,000 units/hr, 10 mls/hr Morphine Sulfate (Morphine Sulfate (*Crx) 2 Mg/Ml Inj) 2 mg IV PUSH Q2H PRN PRN Reason: Pain Rated 7-10 Nitroglycerin (Nitroglycerin Sl 0.4 Mg Tablet) 0.4 mg SUBLINGUAL Q5MIN PRN PRN Reason: Chest Pain Ondansetron HCl (Ondansetron Inj 4 Mg/2 Ml Vial) 4 mg IV PUSH Q4H PRN PRN Reason: Nausea Perflutren Lipid Microsphere (Perflutren Lipid Microspheres 1.5 Ml Vial Diluted To 10 Ml Total Volume) 0 ml IV PUSH ONCE PRN; Protocol PRN Reason: adequate visualization Stop: 09/14/24 11:19 Rosuvastatin Calcium (Rosuvastatin 20 Mg Tablet) 20 mg PO EVENING TARAN Sedation/Anesthesia: No previous sedation/anesthesia problems (including family history). [facility] Past Medical History Medical History Bilateral anterior knee pain Celiac disease delivery delivered 2005 and 2007 Chronic venous insufficiency of lower extremity Depression (~2009) Diverticulitis (~2019) Endometriosis Enlarged tonsils History of nephrolithotomy with removal of calculi 2013 History of shingles Lymphedema of both lower extremities Prediabetes Scoliosis 7 kevin and screws Shingles Vitamin D deficiency Surgical History Surgical History H/O breast biopsy History of back surgery 1994 History of D&C History of lithotripsy History of tonsillectomy Hx of inguinal hernia repair Family History Family History Father Family history of diabetes mellitus in first degree relative Depression Skin and subcutaneous tissue complication after insertion of filling material under skin Mother Asthma Breast cancer Sibling Asthma Depression Other Asthma Grandparent Hypertension Heart disease Grandparent Asthma Diabetes mellitus Hypertension Heart disease Thyroid disorder Other Family history of allergic disorder Social History Social History Smoking status: Never smoker Alcohol intake: current Alcohol use details: rarely Substance use: never Substance use type: does not use Lack of Transportation: No Lack of Food: Never True Current Housing: I Have Housing Concerned About Future Housing: No Difficulty Paying Gas/Electric Bills: No Difficulty Paying for Meds: No Currently Unemployed: No Education: Master's Degree or Higher Difficulty w/ Childcare or Family Care: No Living arrangements: with family 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ed by the patient): Female Sexual Orientation (if Verbalized by the Patient): Straight or Heterosexual Spiritual care concerns: No Mod Sed Physical Exam Physical Exam Pre Procedural Exam: Normal: Airway, Lungs and Heart Rhythm Hours since solid foods: 12 Hours since liquid intake: 12 Mallampati Classification: class III Internal Medicine - PN: Obj Da Vital Signs Vital Signs: Vital Signs - 24 hr 09/11/24 04:42 09/11/24 05:05 09/11/24 05:05 Temperature 35.8 C L Pulse Rate 117 H 62 Respiratory Rate 18 Blood Pressure 161/93 H Pulse Oximetry 98 100 Oxygen Delivery Room Air Room Air 09/11/24 06:12 09/11/24 07:06 09/11/24 09:19 Temperature Pulse Rate 62 58 L 65 Respiratory Rate 16 13 18 Blood Pressure 182/102 H 162/98 H 151/90 H Pulse Oximetry 100 95 99 Oxygen Delivery 09/11/24 09:36 09/11/24 10:33 Temperature 36.4 C 36.6 C Pulse Rate 61 60 Respiratory Rate 15 16 Blood Pressure 154/90 H 150/89 H Pulse Oximetry 100 100 Oxygen Delivery Meds/Results Medications: Active Medications Generic Name Dose Route Start Last Admin Trade Name Freq PRN Reason Stop Dose Admin Acetaminophen 650 mg 09/11/24 09:19 Acetaminophen 325 Mg Tablet PO Q4H PRN Mild Pain (1-3) or Fever Heparin Sodium (Porcine) 4,000 units 09/11/24 09:18 Heparin Sodium 5,000 Units/Ml Vial IV PUSH PRN PRN aPTT less than 55 seconds Heparin Sodium (Porcine) 3,500 units 09/11/24 09:18 Heparin Sodium 5,000 Units/Ml Vial IV PUSH PRN PRN aPTT 55 - 70 seconds Heparin Sodium/Dextrose 25,000 units in 250 mls @ 10 mls/hr 09/11/24 09:30 09/11/24 09:31 Heparin Sodium/D5w 100 Units/Ml IV CONT 1,000 units/hr .Q24H TARAN 10 mls/hr Administration Protocol 1,000 UNITS/HR Morphine Sulfate 2 mg 09/11/24 09:19 Morphine Sulfate (*Crx) 2 Mg/Ml Inj IV PUSH Q2H PRN Pain Rated 7-10 Nitroglycerin 0.4 mg 09/11/24 09:19 Nitroglycerin Sl 0.4 Mg Tablet SUBLINGUAL Q5MIN PRN Chest Pain Ondansetron HCl 4 mg 09/11/24 09:19 Ondansetron Inj 4 Mg/2 Ml Vial IV PUSH Q4H PRN Nausea Perflutren Lipid Microsphere 0 ml 09/11/24 11:19 Perflutren Lipid Microspheres 1.5 Ml Vial Diluted To 10 Ml Total Volume IV PUSH 09/14/24 11:19 ONCE PRN adequate visualization Protocol Rosuvastatin Calcium 20 mg 09/11/24 18:00 Rosuvastatin 20 Mg Tablet PO EVENING [facility] Radiology Results: ITS Impressions Chest X-Ray 09/11/24 06:14 Impression: Probable mild central congestive change. Abdomen Ultrasound 09/11/24 07:42 Impression: Diffuse fatty infiltration of liver. 3 mm gallbladder wall polyp. Labs 09/11/24 05:02 09/11/24 05:02 Labs: Laboratory Results - last 24 hr 09/11/24 09/11/24 09/11/24 05:02 06:02 08:25 WBC 12.7 H RBC 5.11 Hgb 14.6 Hct 45.8 MCV 89.6 MCH 28.6 MCHC 31.9 L RDW 14.0 Plt Count 285 MPV 9.7 Immature Gran % (Auto) 0.6 H Neut % (Auto) 76.3 H Lymph % (Auto) 18.7 [place] % (Auto) 3.8 Eos % (Auto) 0.3 Baso % (Auto) 0.3 Lymph # (Auto) 2.38 [place] # (Auto) 0.5 Eos # (Auto) 0.0 Baso # (Auto) 0.0 Abs Immat Gran (auto) 0.08 H Absolute Neuts (auto) 9.7 H Absolute Nucleated RBC 0.000 Nucleated RBC % 0.0 PT 13.4 INR 1.0 APTT 23.4 Sodium 135 L Potassium 4.4 Chloride 105 Carbon Dioxide 19 L Anion Gap 11 BUN 14 D Creatinine 0.40 L Estim Creat Clear Calc 186 Estimated GFR > 60 Glucose 212 H Calcium 9.1 Total Bilirubin 0.8 AST 45 H ALT 82 H Alkaline Phosphatase 83 Troponin I < 0.012 0.189 H* D Total Protein 8.0 Albumin 4.7 Lipase 210 ASA Classification/Sedation ASA Classification/Sedation ASA Class: III Emergent: No Risks: Risks, benefits and alternatives explained and patient/family accepted plan for sedation. Patient re-evaluated immediately prior to sedation.
--- NOTE | 2024-09-11 11:59 | PM.IMHP ---
H&P: HPI History of Present Illness Date/Time: 09/11/24 11:59 Chief Complaint: Chest Pain Narrative: 44 y/o F presents here with chest pain with PMH chronic low back secondary to sciatica, celiac disease, endometriosis, prediabetic, and lymphedema of BLE. The patient presents here from home for further evaluation of chest pain. She reports acute onset of midsternal chest pain at 03:30 a.m. while the patient was asleep. The patient describes this chest pain as substernal/left sided, felt like very severe indigestion, radiating into her bilateral arms/bilateral neck/upper back, constant, and no alleviating or aggravating factors. Trialed Pepcid, ice cream, water, and sitting up without relief. She endorses associated mild shortness of breath and mild dizziness. Denies nausea, vomiting, diaphoresis. She denies cardiac history. Paternal grandfather had several strokes and heart attacks in his 50's. Maternal grandfather also had multiple heart attacks in his 70s. Mother has a RBBB and HTN. 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 Patient also has lymphedema which is limiting to her mobility. PAtient has been even less mobile due to her sciatica, currently on a Medrol Pack for this which was prescribed by her PCP. No recent surgeries. Initial VS at presentation: 96.4? F, HR 117, RR 18, 161/93, and 98% on RA. ED workup showed: WBC 12.7, no anemia, normal coags, creatinine 0.4 and GFR >60, glucose 212, AST 45, ALT 82, initial troponin negative, 2nd troponin 0.189. CXR showed probable mild central congestive changes. Abdominal ultrasound showed diffuse fatty infiltration of liver and a 3 mm gallbladder wall polyp. Initial EKG showed sinus rhythm, possible inferior MS probably old. Review of Systems Review of Systems: All systems reviewed & are unremarkable except as noted in HPI and below REPLACED BY [facility] Past Medical History Medical History (Updated 09/11/24 @ 22:44 by Theresa Holden, SYD) Bilateral anterior knee pain Celiac disease delivery delivered 2005 and 2007 Chronic venous insufficiency of lower extremity Depression (~2009) Diverticulitis (~2019) Endometriosis Enlarged tonsils History of nephrolithotomy with removal of calculi 2013 History of shingles Lymphedema of both lower extremities Prediabetes Scoliosis 7 kevin and screws Shingles Sleep apnea On CPAP Vitamin D deficiency Surgical History Surgical History H/O breast biopsy History of back surgery 1994 History of D&C History of lithotripsy History of tonsillectomy Hx of inguinal hernia repair Family History Family History Father Skin and subcutaneous tissue complication after insertion of filling material under skin Skin cancer Depression Family history of diabetes mellitus in first degree relative Mother Breast cancer Asthma Right bundle branch block Hypertension Sibling Skin cancer Depression Asthma Other Skin cancer Asthma Grandparent Heart disease Hypertension Grandparent Skin cancer Diabetes mellitus Heart disease Hypertension Thyroid disorder Asthma Other Family history of allergic disorder Social History Social History Smoking status: Never smoker Second hand tobacco smoke exposure: No Alcohol intake: never Alcohol use details: rarely Substance use: never Substance use type: does not use Do You Feel Safe in your Home?: Yes Lack of Transportation: No Lack of Food: Never True Current Housing: I Have Housing Concerned About Future Housing: No Difficulty Paying Gas/Electric Bills: No Difficulty Paying for Meds: No Currently Unemployed: No Education: Master's Degree or Higher Difficulty w/ Childcare or Family Care: No Living arrangements: with family 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ed by the patient): Female Sexual Orientation (if Verbalized by the Patient): Straight or Heterosexual Spiritual care concerns: No Meds Home Medications and Allergies Home Medications Medication Instructions Recorded Confirmed Type cetirizine 10 mg tablet (Zyrtec) 10 mg PO DAILY PRN Allergy Symptoms 02/23/23 09/11/24 History fluticasone propionate 50 1 spray intranasal DAILY PRN 11/23/23 09/11/24 History mcg/actuation nasal Allergy Symptoms spray,suspension (Flonase Allergy Relief) multivitamin (Daily Multi-Vitamin 1 tablet PO DAILY 11/23/23 09/11/24 History tablet) gabapentin 100 mg capsule 100 mg PO TID #30 caps 09/08/24 09/11/24 Rx methylprednisolone 4 mg tablets in See Rx Instructions PO PER PKG DIR 09/08/24 09/11/24 Rx a dose pack (Medrol (Brandon)) #21 ea famotidine 20 mg tablet (Pepcid AC 20 mg DAILY PRN Indigestion 09/11/24 09/11/24 History Maximum Strength) Allergies Allergy/AdvReac Type Severity Reaction Status Date / Time aspirin Allergy Intermediate Swelling Verified 09/11/24 05:14 NSAIDS (Non-Steroidal Allergy Intermediate face Verified 09/11/24 05:14 Anti-Inflamma swelling midazolam AdvReac Severe Hallucinati Verified 09/11/24 05:14 ng tramadol AdvReac Severe Hallucinati Verified 09/11/24 05:14 ng amoxicillin AdvReac Intermediate Diarrhea Verified 09/11/24 05:14 ciprofloxacin AdvReac Intermediate NAUSEA AND Verified 09/11/24 05:14 DIARRHEA clarithromycin AdvReac Intermediate Vomiting Verified 09/11/24 05:14 erythromycin base AdvReac Intermediate Vomiting Verified 09/11/24 05:14 Vital Signs Vital Signs - 24 hr 09/11/24 04:42 09/11/24 05:05 09/11/24 05:05 Temperature 96.4 F L Pulse Rate 117 H 62 Respiratory Rate 18 Blood Pressure 161/93 H Pulse Oximetry 98 100 Oxygen Delivery Room Air Room Air 09/11/24 06:12 09/11/24 07:06 09/11/24 09:19 Temperature Pulse Rate 62 58 L 65 Respiratory Rate 16 13 18 Blood Pressure 182/102 H 162/98 H 151/90 H Pulse Oximetry 100 95 99 Oxygen Delivery 09/11/24 09:36 09/11/24 10:33 Temperature 97.6 F 97.8 F Pulse Rate 61 60 Respiratory Rate 15 16 Blood Pressure 154/90 H 150/89 H Pulse Oximetry 100 100 Oxygen Delivery Exam Const: General: comfortable and no acute distress Other: , female, nontoxic appearance HENMT: Face/Nose/Sinus: Normal nares present Mouth: Yes moist mucous membranes Eyes: General: appearance normal, both eyes and all related structures Sclera: sclerae normal Pupils: Equal, round and reactive pupils present EOM: EOMs intact bilaterally Resp: Effort & Inspection: normal respiratory effort Auscultation: clear to auscultation bilaterally Cardio: Rate: regular rate Rhythm: regular rhythm Other: S1-S2 present without murmur, rub, ectopy GI: GI Palp: Yes Soft to palpation Auscultation: normal bowel sounds Other: Abdomen nondistended. Normoactive bowel sounds in all quadrants. Skin: General skin exam: normal color and no rashes or lesions noted Wounds: no wounds Neuro: Speech: normal speech Motor exam (neuro): 5/5 motor strength present throughout Sensory Exam: normal sensation Other: A&O x4 Extrem: Other: Trace edema to bilateral ankles/distal calves. Symmetric. No associated erythema. Mild tenderness over left saini. Psych: Mental Status: mental status grossly normal Affect: Sad affect present and Anxious affect present Other: Good insight and judgment, pleasant. Patient anxious and tearful after explanation of troponin. H&P: Results Labs Labs: Short CBC 09/11/24 Range/Units 05:02 WBC 12.7 H (4.5-10.0) K/mm3 Hgb 14.6 (12.0-15.0) g/dL Hct 45.8 (37.0-47.0) % Plt Count 285 (150-375) k/mm3 BMP 09/11/24 05:02 Sodium 135 L Potassium 4.4 Chloride 105 Carbon Dioxide 19 L BUN 14 D Creatinine 0.40 L Glucose 212 H Calcium 9.1 Cardiac Enzymes 09/11/24 09/11/24 Range/Units 05:02 08:25 Troponin I < 0.012 0.189 H* D (0.000-0.034) ng/mL Liver Function 09/11/24 Range/Units 05:02 Total Bilirubin 0.8 (0.2-1.3) mg/dL AST 45 H (14-36) U/L ALT 82 H (6-35) U/L Alkaline Phosphatase 83 (38-126) U/L Albumin 4.7 (3.5-5.1) g/dL Assessment and Plan Assessment and plan (1) Acute non-ST elevation myocardial infarction (NSTEMI): Code(s): I21.4 - Non-ST elevation (NSTEMI) myocardial infarction Status: Acute Assessment and Plan: - EKG, initial: Sinus rhythm, possible inferior MS probably old - EKG, repeat (1): Sinus rhythm with occasional premature superior ventricular complexes. - CXR: Probable mild central congestive change - Troponin: <0.012 -> 0.189 -> 0.858 - SL nitro PRN - cardiology consulted, Kale AGUIRRE provided the following recs: urgent cardiac cath -> no blockages noted, unclear etiology for troponin leak load with Brilinta and keep on ticagrelor monotherapy given aspirin allergy start metoprolol 25 mg p.o. b.i.d. obtain MONROE start statin - no clear etiology for troponin leak, will obtain CTA and lower extremity Dopplers to rule out clot. - started on heparin gtt - add lipid panel and A1c - echo pending, adding TSH - telemetry monitoring (2) Prediabetes: Code(s): R73.03 - Prediabetes Status: Acute Assessment and Plan: - initial glucose 212 - A1C 6.1% in 10/2022, update (3) Elevated blood pressure reading without diagnosis of hypertension: Code(s): R03.0 - Elevated blood-pressure reading, without diagnosis of hypertension Status: Acute Assessment and Plan: - initial BP 161/93, currently 134/69 - monitor, started on metoprolol 25 mg b.i.d. given NSTEMI Plan Medrol Dosepak for sciatic held. Diet: NPO except ice chips, heart healthy post catheterization GI Prophylaxis: Not currently indicated DVT Prophylaxis: SCDs Lines: Peripheral Code Status: Full code Quality VTE Prophylaxis VTE prophylaxis: mechanical ordered Hospitalist MIPS Advance Care Plan I have confirmed that the patient's Advanced Care Plan is present, code status is documented, or surrogate decision maker is listed in patient medical record.: Yes Medication Reconciliation I have utilized all available resources to obtain, update and review the patients current medications (includes all prescriptions, OTC, herbals, cannabis, and nutritional supplements).: Yes
[2024-09-11 12:04] LABS: Troponin I 0.858 ng/mL (0.000-0.034)
--- NOTE | 2024-09-11 12:06 | SUR.OPER ---
Critical Lab result Troponin, called to [facility] at 1203pm, FARM MACHINE OPERATOR Talisha Woods notified at 1205pm, patient is in the Bulk Driver now no new orders recieved
[2024-09-11 12:33] LABS: SPREG INTERNAL CONTROL Positive; Serum Qual hCG Negative
--- NOTE | 2024-09-11 12:58 | P.PCNCC_ITS ---
Cardiac Cath Procedure Note Date of procedure:: 09/11/24 Performing physician:: CATHETERIZATION LABORATORY REPORT Procedure Date: 09/11/2024 Referring Physician: Dr. Holden Anesthesia: Versed and Fentanyl were ordered and given in my presence at 1230, procedure ended at 1252. Supervision of nurse, Rayray Dickson monitored moderate sedation with 50mg Benadryl and 100mcg Fentanyl was provided for 22 minutes. Pre-op Diagnosis: NSTEMI Post-op Diagnosis: NSTEMI Procedure(s): Left heart catheterization with coronary angiography Access Site: Right radial artery. Hemostasis band Brief History and Clinical Indications: All risks, benefits and alternatives to left heart catheterization with or without percutaneous coronary intervention was discussed at length with the patient. Risk of complications including but not limited to bleeding, infection, arrhythmia, stroke, worsening kidney function, blood loss, groin hematoma, limb loss, emergency coronary artery bypass grafting, and even were discussed with the patient and all questions were answered. The patient understood and wished to proceed. Time out called, patient name, date of , medical record number, allergies, procedure performed, identify Dairy Nutrition Consultant, patient and staff member concurred with accurate data, procedure carried on. Findings: LEFT HEART CATHETERIZATION FINDINGS: 1. Left main: The left main coronary artery is widely patent without any significant obstructive disease. 2. Left anterior descending: The LAD and the diagonal branches do not have any significant obstructive angiographic disease. 3. Left circumflex: The left circumflex artery and the main marginal branches do not have significant obstructive angiographic disease. 4. Right coronary artery: The RCA is the dominant vessel and normal. 5. Left ventricle: A. End-diastolic pressure 26 mmHg. B. LV gram preserved EF. C. No significant gradient across aortic valve on catheter pullback. 6. Opening AO pressure 136/102 and closing AO pressure 116/79 Description of Procedure: Informed consent signed and placed in the chart. Patient transferred to manager laboratory room. Prepped and draped in usual sterile fashion. 2% lidocaine injected subcutaneously in right wrist area. 22-gauge venipuncture catheter used to access the right radial artery with the Seldinger technique. 6-FR slender sheath placed in right radial artery. Nitroglycerin 200mcg, Verapamil 2.5mg, and Heparin 5000U was given intraarterial through the sheath. J wire advanced under fluoroscopy The 5F TIG and 5F JL3.5 was unable to engage the LMCA due to tortuous and short ascending aorta. Eventually, a 6F CLS guide catheter was used to evaluate the left coronary system. 5F TIG diagnostic catheter engaged Right Coronary Artery Multiple orthogonal angiogram obtained and reviewed 5F Pigtail diagnostic catheter crossed aortic valve to obtain LVEDP and LV angiogram. Hemostasis was achieved by application of TR band. Assessment: No obstructive CAD Post Operative Condition: Stable No significant blood loss Disposition: Floor Plan: Rule out pulmonary embolism and aortic pathologies with CTA chest Juan Henley Interventional Cardiology
[2024-09-11] MEDS: ACETAMINOPHEN 325 MG TABLET 650 MG PO ×2 (14:40→22:11)
[2024-09-11] MEDS: SODIUM CHLORIDE 0.9% IV 1,000 ML 125 ML IV CONT (16:00)
[2024-09-11] MEDS: NITROGLYCERIN SL 0.4 MG TABLET SUBLINGUAL (22:10)
[2024-09-12] VITALS (10 sets, daily range): BP systolic 122–140; BP diastolic 62–76; PULSE 60–80; RESP 16–20; TEMP 36.5–36.8; O2SAT 93–98
--- NOTE | 2024-09-12 | ECHO_ITS ---
Patient Info Name: Kaylie Nicole Age: 44 years : 1980 Gender: Female Ht: 65 in Wt: 255 lbs BSA: 2.36 m2 HR: 60 bpm BP: 125 / 72 mmHg Heart Rhythm: Sinus Rhythm Technical Quality: Poor Exam Date: 09/12/2024 9:49 AM Exam Location: Echo Lab Patient Status: Inpatient Admit Date: 09/11/2024 Staff Ordering Physician: Juan Henley MDjoe) Firer Automatic Stoker: Regan Ortez RDCS Attending Provider: Francois Larson MD Exam Type: CA echo dop color flow w con Study Info Indications - NSTEMI Complete two-dimensional, color flow and Doppler transthoracic echocardiogram is performed with contrast to opacify the left ventricle and to improve the deliniation of the left ventricle endocardial borders. Contrast/Agitated Saline Contrast/Ag. Saline: Definity Amount: 2.00 ml Existing IV Access: Yes Reason for Poor Study: poor echocardiographic windows Summary 1. Left ventricular chamber dimension is normal. 2. Left ventricular systolic function is normal, estimated at 55-60%. 3. There is mildly increased left ventricular wall thickness. 4. The left ventricular diastolic function is grade I diastolic dysfunction. 5. Right ventricular systolic function is normal. 6. No significant valvular disease. Left Ventricle Left ventricular chamber dimension is normal. Left ventricular systolic function is normal, estimated at 55-60%. There is mildly increased left ventricular wall thickness. The left ventricular diastolic function is grade I diastolic dysfunction. Right Ventricle Right ventricular chamber dimension is normal. Right ventricular systolic function is normal. Left Atria Left atrial chamber dimension is normal. Right Atria Right atrial chamber dimension is normal. Atrial Septum Intact interatrial septum visualized by color flow imaging. Aortic Valve The aortic valve is not well visualized. There is no aortic valve stenosis. There is no aortic valve regurgitation. Pulmonic Valve The pulmonic valve is not well visualized. There is no pulmonic regurgitation. Mitral Valve There is trace mitral valve regurgitation. Tricuspid Valve There is trace tricuspid valve regurgitation. Pericardium/Pleural The pericardium appears epicardial fat pad. There is no pericardial effusion. Inferior Vena Cava Normal inferior vena cava with >50% collapse upon inspiration consistent with normal right atrial pressure, 3 mmHg. Aorta The aortic root size at the sinus of Valsalva is normal. Left Ventricular Outflow Tract Name Value Normal LVOT 2D LVOT Diameter 1.85 cm LVOT Doppler LVOT Peak Gradient 4 mmHg LVOT Mean Gradient 3 mmHg LVOT VTI 24.16 cm LVOT VTI/AV VTI Ratio 0.65 LVOT Stroke Volume 65.15 ml LVOT CO 4.09 l/min LVOT CI 1.73 L/min/m2 Pulmonic Valve Name Value Normal RVOT Doppler RVOT Peak Gradient 3 mmHg PV Doppler PV Peak Gradient 4 mmHg Mitral Valve Name Value Normal MV Doppler MV Decel [place] 448.99 cm/s2 MV PHT 0 s MV Area (PHT) 4.51 cm2 4.00-5.00 MV Diastolic Function MV E Peak Velocity 75.49 cm/s MV A Peak Velocity 83.97 cm/s MV E/A 0.90 MV Decel Time 0 s MV Annular TDI MV E/e' (Septal) 8.09 <=8.00 MV E/e' (Lateral) 6.84 <=8.00 MV E/e' (Average) 7.47 Tricuspid Valve Name Value Normal Estimated PAP/RSVP RA Pressure 3 mmHg <=5 Aorta Name Value Normal Ascending Aorta Ao Root Diameter (MM) 3.28 cm Ao Root Diam Index (MM) 1.39 cm/m2 Aortic Valve Name Value Normal AV Doppler AV Peak Velocity 155.39 cm/s AV Peak Gradient 10 mmHg AV Mean Gradient 6 mmHg AV VTI 37.00 cm AV Area (Cont Eq VTI) 1.76 cm2 >=3.00 AV Area (Cont Eq Todd) 1.80 cm2 AV Regurgitation 2D LVOT Area 2.70 cm2 Ventricles Name Value Normal LV Dimensions 2D/MM IVS Diastolic Thickness (2D) 1.33 cm 0.60-1.00 LVID Diastole (2D) 4.72 cm 3.80-5.20 LVIW Diastolic Thickness (2D) 1.53 cm 0.60-0.90 LVID Systole (2D) 3.35 cm 2.20-3.50 LVOT Diameter 1.85 cm LV Mass (2D Cubed) 274.91 g 67.00-162.00 LV Mass Index (2D Cubed) 0.01 g/cm2 0.00-0.01 Relative Wall Thickness (2D) 0.65 LV Fractional Shortening/Ejection Fraction 2D/MM LV Fractional Shortening (2D) 31 % 27-45 LV EF (2D Teichnelsonz) 59 % 54-74 LV Diastolic Volume (4C MOD) 92.38 ml LV EF (4C MOD) 61 % LV Diastolic Volume (2C MOD) 37.42 ml LV EF (2C MOD) 40 % LV Diastolic Volume (BP MOD) 60.45 ml 46.00-106.00 LV Diastolic Volume Index (BP MOD) 0.03 l/m2 0.03-0.06 LV Systolic Volume (BP MOD) 28.38 ml 14.00-42.00 LV Systolic Volume Index (BP MOD) 0.01 l/m2 0.01-0.02 LV EF (BP MOD) 53 % 54-74 LV Diastolic Length (4C) 7.22 cm LV Systolic Length (4C) 6.41 cm LV Stroke Volume (4C MOD) 56.71 ml Atria Name Value Normal LA Dimensions LA Dimension (MM) 3.52 cm 2.70-3.80 LA Volume (4C A-L) 58.86 ml LA Volume (BP A-L) 59.29 ml RA Dimensions RA Area (4C) 20.63 cm2 <=18.00 Report Signatures
[2024-09-12 04:14] LABS: Basophils Percent Auto 0.4 % (0.2-1.2); Eosinophils Absolute Auto 0.1 K/mm3 (0-0.3); Eosinophils Percent Auto 1.3 % (0-4.4); Hematocrit 44.5 % (37.0-47.0); Hemoglobin 13.8 g/dL (12.0-15.0); Immature Granulocyte Absolute 0.04 K/mm3 (0.00-0.031); Immature Granulocyte Percent A 0.4 % (0-0.5); Lymphocytes Absolute Auto 4.09 K/mm3 (0.9-3.2); Lymphocytes Percent Auto 41.8 % (18.3-44.2); Mean Corpuscular Hemoglobin 28.9 pg (26-34); Mean Corpuscular Volume 93.3 fl (80-100); Monocytes Absolute Auto 0.5 K/mm3 (0.1-0.6); Monocytes Percent Auto 4.9 % (2.6-8.5); Neutrophils Percent Auto 51.2 % (45.5-73.1); Platelet Count Result 276 k/mm3 (150-375); Red Blood Count 4.77 M/mm3 (4.2-5.4); Red Cell Distribution Width 14.2 % (11.5-14.5); White Blood Count 9.8 K/mm3 (4.5-10.0)
[2024-09-12 04:33] LABS: Alanine Aminotransferase 110 U/L (6-35); Albumin Level 4.1 g/dL (3.5-5.1); Alkaline Phosphatase 81 U/L (38-126); Anion Gap 8 mmol/L (4-12); Aspartate Amino Transferase 85 U/L (14-36); Bilirubin,Total 0.6 mg/dL (0.2-1.3); Blood Urea Nitrogen 17 mg/dL (7-17); Calcium 8.3 mg/dL (8.4-10.2); Carbon Dioxide 24 mmol/L (22-30); Chloride 106 mmol/L (98-107); Cholesterol 179 mg/dL (0-200); Estimated CRCL calculation 128 ml/min; Estimated Glomerular Filt Rate > 60; Glucose 113 mg/dL (65-110); HDL Direct 66 mg/dL; Partial Thromboplastin Time 29.3 Seconds (22.3-36.8); Potassium 3.9 mmol/L (3.4-5.0); Sodium 138 mmol/L (137-145); Triglycerides 240 mg/dL (<150)
[2024-09-12 04:44] LABS: LDL Cholesterol Direct 67 mg/dL
[2024-09-12] MEDS: HEPARIN SODIUM 5,000 UNITS/ML VIAL 4000 UNITS IV PUSH ×2 (04:56→11:54)
[2024-09-12 05:07] LABS: Hemoglobin A1C 6.8 % (<5.7)
[2024-09-12 08:03] LABS: Total Triiodothyronine (T3) 1.03 NG/ML (0.97-1.69)
[2024-09-12] MEDS: MULTIVITAMINS THERAPEUTIC TAB (*BKC) 1 TABLET PO (08:32)
[2024-09-12] MEDS: GABAPENTIN 100 MG CAPSULE PO ×3 (08:32→17:49)
[2024-09-12] MEDS: PERFLUTREN LIPID MICROSPHERES 1.5 ML VIAL DILUTED TO 10 ML TOTAL VOLUME IV PUSH (10:30)
[2024-09-12] MEDS: ACETAMINOPHEN 325 MG TABLET 650 MG PO ×2 (10:30→15:49)
[2024-09-12] MEDS: HEPARIN SOD/D5W 100 UNITS/ML 25,000 UNITS/250 ML BAG 13 UNITS IV CONT (10:31)
[2024-09-12 11:39] LABS: Partial Thromboplastin Time 40.2 Seconds (22.3-36.8)
--- NOTE | 2024-09-12 11:39 | IVDEFINITY ---
Prior to administration of IV Definity the patient was educated on the risks and benefits of the imaging enhancing agent including potential adverse side effects. The patient verbalized understanding. Allergies were verified. No exclusion criteria were identified and at least one of the following inclusion criteria were met: 1) physician request, 2) patient technically difficult to image (per the [place] [employer]chocardi[employer] guidelines of two or more segments not discernable within the apical view), or 3) questionable left ventricular function. ?
[2024-09-12] MEDS: HEPARIN SOD/D5W 100 UNITS/ML 25,000 UNITS/250 ML BAG 16 UNITS IV CONT (11:50)
--- NOTE | 2024-09-12 16:58 | P.DS_ITS ---
DS: Admitting Diagnosis Discharge Date 09/12/2024 Admitting Diagnosis Chest pain DS: Discharge Diagnosis Discharge Diagnosis (1) Acute non-ST elevation myocardial infarction (NSTEMI): Code(s): I21.4 - Non-ST elevation (NSTEMI) myocardial infarction Status: Acute Assessment and Plan: Refer to brief hospital course - EKG, initial: Sinus rhythm, possible inferior OH probably old - EKG, repeat (1): Sinus rhythm with occasional premature superior ventricular complexes. - CXR: Probable mild central congestive change - Troponin: <0.012 -> 0.189 -> 0.858 - SL nitro PRN - cardiology consulted, Kale AGUIRRE provided the following recs: urgent cardiac cath -> no blockages noted, unclear etiology for troponin leak load with Brilinta and keep on ticagrelor monotherapy given aspirin allergy start metoprolol 25 mg p.o. b.i.d. obtain MONROE start statin - no clear etiology for troponin leak, will obtain CTA and lower extremity Dopplers to rule out clot. - started on heparin gtt - add lipid panel and A1c - echo pending, adding TSH - telemetry monitoring (2) Prediabetes: Code(s): R73.03 - Prediabetes Status: Acute Assessment and Plan: - initial glucose 212 - A1C 6.1% in 10/2022, update (3) Elevated blood pressure reading without diagnosis of hypertension: Code(s): R03.0 - Elevated blood-pressure reading, without diagnosis of hypertension Status: Acute Assessment and Plan: - initial BP 161/93, currently 134/69 - monitor, started on metoprolol 25 mg b.i.d. given NSTEMI Plan Medrol Dosepak for sciatic held. Diet: NPO except ice chips, heart healthy post catheterization GI Prophylaxis: Not currently indicated DVT Prophylaxis: SCDs Lines: Peripheral Code Status: Full code DS: Summary Hospital Course Hospital Course: 44 y/o F presents here with chest pain with PMH chronic low back secondary to sciatica, celiac disease, endometriosis, prediabetic, and lymphedema of BLE. The patient presents here from home for further evaluation of chest pain. She reports acute onset of midsternal chest pain at 03:30 a.m. while the patient was asleep. The patient describes this chest pain as substernal/left sided, felt like very severe indigestion, radiating into her bilateral arms/bilateral n lino/upper back, constant, and no alleviating or aggravating factors. Trialed Pepcid, ice cream, water, and sitting up without relief. She endorses associated mild shortness of breath and mild dizziness. Denies nausea, vomiting, diaphoresis. She denies cardiac history. Paternal grandfather had several strokes and heart attacks in his 50's. Maternal grandfather also had multiple heart attacks in his 70s. Mother has a RBBB and HTN. 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 Patient also has lymphedema which is limiting to her mobility. PAtient has been even less mobile due to her sciatica, currently on a Medrol Pack for this which was prescribed by her PCP. No recent surgeries. Initial VS at presentation: 96.4? F, HR 117, RR 18, 161/93, and 98% on RA. ED workup showed: WBC 12.7, no anemia, normal coags, creatinine 0.4 and GFR >60, glucose 212, AST 45, ALT 82, initial troponin negative, 2nd troponin 0.189. CXR showed probable mild central congestive changes. Abdominal ultrasound showed diffuse fatty infiltration of liver and a 3 mm gallbladder wall polyp. Initial EKG showed sinus rhythm, possible inferior OH probably old. During the course of hospitalization patient was evaluated by the Cardiology and underwent cardiac catheterization which shows no significant finding (please refer to cardiac catheterization report). Discussed the case with Cardiology and agrees for discharge. Possible elevation of the troponin can be from myocarditis. Patient HbA1c resulted 6.8 and agrees to discuss with the PCP in starting diabetic medication. Patient is started on rosuvastatin 20 mg p.o. q.d.. Advised to follow-up with PCP and Cardiology within a week upon discharge. Also advised to seek ED in the event of chest pain, shortness of breath, palpitations. Status at Discharge Cognitive/behavioral status at discharge: Stable Time Spent with Patient Time attestation: Total time spent providing and/or coordinating discharge services: 45 minute Exam Narrative: mild trace edema to ble, symmetric. Const: General: comfortable and no acute distress Other: , female, nontoxic appearance HENMT: Face/Nose/Sinus: Normal nares present Mouth: Yes moist mucous membranes Eyes: General: appearance normal, both eyes and all related structures Sclera: sclerae normal Pupils: Equal, round and reactive pupils present EOM: EOMs intact bilaterally Resp: Effort & Inspection: normal respiratory effort Auscultation: clear to auscultation bilaterally Cardio: Rate: regular rate Rhythm: regular rhythm Other: S1-S2 present without murmur, rub, ectopy GI: Auscultation: normal bowel sounds Other: Abdomen nondistended. Normoactive bowel sounds in all quadrants. Skin: General skin exam: normal color and no rashes or lesions noted Wounds: no wounds Neuro: Cranial nerves: Yes Equal, round and reactive pupils present Speech: normal speech Motor exam (neuro): 5/5 motor strength present throughout Sensory Exam: normal sensation Other: A&O x4 Extrem: Other: Trace edema to bilateral ankles/distal calves. Symmetric. No associated erythema. Mild tenderness over left saini. Psych: Mental Status: mental status grossly normal Affect: Sad affect present and Anxious affect present Other: Good insight and judgment, pleasant. Patient anxious and tearful after explanation of troponin. DS: Data Data Completed and Pending Labs on day of discharge: Labs from last 24 hours 09/12/24 09/12/24 10:57 03:55 WBC 9.8 RBC 4.77 Hgb 13.8 Hct 44.5 MCV 93.3 MCH 28.9 MCHC 31.0 L RDW 14.2 Plt Count 276 MPV 10.0 Immature Gran % (Auto) 0.4 Neut % (Auto) 51.2 Lymph % (Auto) 41.8 [place] % (Auto) 4.9 Eos % (Auto) 1.3 Baso % (Auto) 0.4 Lymph # (Auto) 4.09 H [place] # (Auto) 0.5 Eos # (Auto) 0.1 Baso # (Auto) 0.0 Abs Immat Gran (auto) 0.04 H Absolute Neuts (auto) 5.0 Absolute Nucleated RBC 0.000 Nucleated RBC % 0.0 APTT 40.2 H 29.3 Sodium 138 Potassium 3.9 Chloride 106 Carbon Dioxide 24 Anion Gap 8 BUN 17 Creatinine 0.60 L Estim Creat Clear Calc 128 Estimated GFR > 60 Glucose 113 H Hemoglobin A1c 6.8 H Calcium 8.3 L Total Bilirubin 0.6 AST 85 H ALT 110 H Alkaline Phosphatase 81 Total Protein 7.0 Albumin 4.1 Triglycerides 240 H Cholesterol 179 LDL Cholesterol Direct 67 HDL Direct 66 TSH (Reflex) 7.420 H Free T4 1.00 Total T3 1.03 Discharge Plan Discharge Attending physician on discharge: Reji Combs Consulting providers: Juan Henley Discharging Clinician: Reji Cobms Anticipated Discharge Date/Time: 09/12/24 16:55 Patient Disposition: Home, Self-Care Activity: as tolerated Diet: diabetic Discharge Instructions: Follow up with PCP and Cardiology within a week upon discharge Patient HbA1c 6.8, needs to follow-up with the PCP for starting diabetic medication In the event of any chest pain, shortness of breath, palpitation please visit nearby ED Patient Instructions: Antibiotic Form, Moderate Sedation (DC), After Radial Heart Catheterization (GEN) Follow-up/Referrals: Juan Henley MD [Physician] - 1 Week Kenn Urbina MD [Primary Care Provider] - 1 Week (Patient HGB A1c is 6.8. Please started diabetic medication) Discharge Medications: New rosuvastatin 20 mg Tablet 20 mg PO EVENING Qty: 30 0RF Continued multivitamin [Daily Multi-Vitamin] Tablet 1 tablet PO DAILY Patient Comments: has not been taking in last month methylprednisolone [Medrol (Brandon)] 4 mg tablets,dose pack See Rx Instructions PO PER PKG DIR Qty: 21 0RF Rx Instructions: PO PER PKG DIR gabapentin 100 mg capsule 100 mg PO TID Qty: 30 0RF fluticasone propionate [Flonase Allergy Relief] 50 mcg/actuation spray,suspension 1 spray intranasal DAILY PRN (Reason: Allergy Symptoms) Rx Instructions: administer into each nostril cetirizine [Zyrtec] 10 mg tablet 10 mg PO DAILY PRN (Reason: Allergy Symptoms) famotidine [Pepcid AC Maximum Strength] 20 mg Tablet 20 mg DAILY PRN (Reason: Indigestion) Date of admission: 09/12/24 16:08 Primary Care Provider: Kenn Urbina Admitting Provider: Francois Larson Attending physician on admission: Francois Larson Condition: Stable
[2024-09-12] MEDS: ROSUVASTATIN 20 MG TABLET PO (17:49)
== END 2024-09-12 18:20 | disposition home or self-care (01) | DRG 282 ==
LOC: ANHED 09:31 → ANHIMU 09:43
PROVIDERS: Emergency Medicine; Internal Medicine; Student in an Organized Health Care Education/Training Program; Admitting Provider Internal Medicine; Emergency Provider Student in an Organized Health Care Education/Training Program; PCP Family Medicine; Visit Provider General Practice
PROC: 4A023N7 Measurement of Cardiac Sampling and Pressure, Left Heart, Percutaneous Approach (ICD-10-PCS; CPT 93452; principal; 2024-09-11 11:30)
DX: I21.4 Non-ST elevation (NSTEMI) myocardial infarction (principal); I87.2 Venous insufficiency (chronic) (peripheral); K90.0 Celiac disease; K57.30 Diverticulosis of large intestine without perforation or abscess without bleeding; K76.0 Fatty (change of) liver, not elsewhere classified; I89.0 Lymphedema, not elsewhere classified; R03.0 Elevated blood-pressure reading, without diagnosis of hypertension; E55.9 Vitamin D deficiency, unspecified; R73.03 Prediabetes; N80.9 Endometriosis, unspecified; M54.40 Lumbago with sciatica, unspecified side; F32.A Depression, unspecified; Z87.442 Personal history of urinary calculi
CPT/HCPCS: 36415; 71045; 71275; 76705; 80053; 80061; 83036; 83690; 84439; 84443; 84480; 84484; 84703; 85025; 85610; 85730; 93005; 93458; 93970; 96365; 96366; 96375; 99285; A9270; C1769; C1887; C1894; C8929; G0378; J1200; J1644; J2003; J2305; J2405; J2470; J3010; J7030; J7040; Q9957; Q9967

== ENCOUNTER 2024-09-14 15:09 | Outpatient (CLI) | payer BC, SELFPAY ==
[2024-09-14 20:18] LABS: Vitamin D 25 Hydroxy 23.2 ng/mL
[2024-09-14 22:07] LABS: Creatinine Urine 91.5 mg/dL
[2024-09-14 22:12] LABS: MALB Creatinine Ratio 7.4 mg/g (0-30); Microalbumin Urine Random 6.8 mg/L (0-16.7)
== END 2024-09-14 15:10 | disposition home or self-care (01) ==
LOC: ANHGOSHLAB 15:10
PROVIDERS: PCP Family Medicine; Visit Provider Family Medicine
DX: E53.8 Deficiency of other specified B group vitamins (principal); E11.9 Type 2 diabetes mellitus without complications; E55.9 Vitamin D deficiency, unspecified
CPT/HCPCS: 36415; 82043; 82306; 82607

== ENCOUNTER 2024-09-22 13:38 | Outpatient (CLI) | payer BC, SELFPAY ==
--- OUTSIDE RECORDS SUMMARY | 2024-09-22 13:42 | XMS_ITS ---
[facility] Address [address] [place], [place] [id number] Care Team Providers Care Private Equity Associate Name Role Phone KYLEE GARCIA Unavailable [phone] Answer, Declined Unavailable Unavailable MARIO GREEN Unavailable [phone] REASON FOR VISIT The patient is here to be dispensed and fitted for custom orthotics. She has plantar fascitis and unequal limb length Encounters Encounter Location Date Provider Diagnosis [facility] [place] [address] [place], [place] [id number] 09/04/2024 MARIO GREEN Plantar fascial fibromatosis M72.2 ; Unequal limb length (acquired), unspecified tibia and fibula M21.769 ; Pain in right foot M79.671 and Left foot pain M79.672 Assessments Encounter Date Diagnosis (ICD Code) Assessment Notes Treatment Notes Treatment Clinical Notes Section Notes 09/04/2024 Plantar fascial fibromatosis (ICD-10 - M72.2) Plantar Fascitis: I discussed anti-inflammato ry treatment options and various means of pronation control with the patient. I educated the patient on icing and stretching, supportive shoegear, and the use of orthotic devices. Orthotic Dispense: The orthotic devices were dispensed and fitted. It was noted that the orthotic conformed well to the patient's foot in the subtalar joint neutral position. The patient was educated on the device's use, as well as the gradual break-in period for the device. 09/04/2024 Unequal limb length (acquired), unspecified tibia and fibula (ICD-10 - M21.769) Orthotic Dispense: The orthotic devices were dispensed and fitted. It was noted that the orthotic conformed well to the patient's foot in the subtalar joint neutral position. The patient was educated on the device's use, as well as the gradual break-in period for the device. 09/04/2024 Pain in right foot (ICD-10 - M79.671) 09/04/2024 Left foot pain (ICD-10 - M79.672) Plan Of Treatment Treatment Notes Assessment Notes Plantar fascial fibromatosis Plantar Fascitis: I discussed anti-inflammatory treatment options and various means of pronation control with the patient. I educated the patient on icing and stretching, supportive shoegear, and the use of orthotic devices. Orthotic Dispense: The orthotic devices were dispensed and fitted. It was noted that the orthotic conformed well to the patient's foot in the subtalar joint neutral position. The patient was educated on the device's use, as well as the gradual break-in period for the device. Unequal limb length (acquire d), unspecified tibia and fibula Orthotic Dispense: The orthotic devices were dispensed and fitted. It was noted that the orthotic conformed well to the patient's foot in the subtalar joint neutral position. The patient was educated on the device's use, as well as the gradual break-in period for the device. Next Appt Details Follow Up: prn, Reason: Progress Notes * LEOPOLDO BECK RDOB:1980 (44 yo F)Acc No.[id number]:09/04/2024 Patient:?KIRAN LEOPOLDO R Provider:?Mario Green DPM :1980???Age:44 Y???Sex:Female D ate:09/04/2024 Address:[address] [place], [place] [id number] Subjective: * Chief Complaints: * ???The patient is here to be dispensed and fitted for custom orthotics. She has plantar fascitis and unequal limb length * ROS:?General / Constitutional:?Patient denies?chills, fever, weakness, night sweats.?Musculoskeletal:?Patient denies?childhood foot problems, weakness.?Patient complains of?limb length ineqaulity, orthotic use, arch pain, heel pain.?Peripheral Vascular:?Patient denies?ulceration of feet, cold extremities.?Skin:?Patient denies?ulcerations, discoloration.?Neurologic:?Patient denies?balance difficulty, confusion, difficulty speaking, dizziness.? * Medical History:? * Surgical History:? * Hospitalization/Major Diagno stic Procedure:? * Medications:? Objective: * Vitals:? * Examination: ???Constitutional: ?Constitutional?The patient is awake, alert, well developed, well groomed and well nourished.?Dermatologic: ?Skin findings:?Skin is warm, dry, supple with no breaks in the skin.?Vascular: ?Dorsalis pedis pulse:?2/4, bilateral.?Posterior tibial pulse:?2/4, bilateral.?Capillary refill:?less than 3 seconds.?Edema:?No edema, bilateral.?Neurologic: ?Gross sensation?Gross sensation is intact to light touch.?Musculoskeletal: ?Muscle Strength?Muscle strength is 5/5 in regards to dorsiflexion, plantarflexion, inversion, and eversion in bilateral lower extremities.?Pain on palpation?medial band of the right plantar fascia near its attachment to the calcaneus, medial band of the left plantar fascia near its attachment to the calcaneus.? Assessment: * Assessment: 1.?Plantar fascial fibromato sis - M72.2 (Primary)???2.?Unequal limb length (acquired), unspecified tibia and fibula - M21.769???3.?Pain in right foot - M79.671???4.?Left foot pain - M79.672??? Plan: * Treatment: 2.?Unequal limb length (acqu ired), unspecified tibia and fibula? Notes: Orthotic Dispense: The orthotic devices were dispensed and fitted. It was noted that the orthotic conformed well to the patient's foot in the subtalar joint neutral position. The patient was educated on the device's use, as well as the gradual break-in period for the device.?? * Procedure Codes:? * Follow Up:?prn * Billing Information: * Visit Code:? 15155 Office Visit, Est Pt., Level 3. * Procedure Codes:? * COORDINATOR Sign off status: Completed true * Provider:Alexandro Green DPM Date:?09/04/20 24 Generated for Eder fleming/Leeanne/Leslieitting on:?09/22/2024 01:42 PM ACO COORDINATOR History and Physical Notes * Examination Category Sub-Category Detail Notes Category Not es Dermatologic Skin findings: Skin is warm, dr y, supple with no breaks in the skin Neurologic Gross sensation Gross sensation is intact to light touch Vascular Dorsalis pedis pulse: 2/4, bilateral Edema: No edema, bilateral Capillary refill: less than 3 seconds Posterior tibial pulse: 2/4, bilateral Musculoskeletal Muscle Strength Muscle strength is 5/5 in regards to dorsiflexion, plantarflexion, inversion, and eversion in bilateral lower extremities Pain on palpation medial band of the r ight plantar fascia near its attachment to the calcaneus, medial band of the left plantar fascia near its attachment to the calcaneus Constitutional Constitutional The patient is a wake, alert, well developed, well groomed and well nourished
--- OUTSIDE RECORDS SUMMARY | 2024-09-22 13:42 | XMS_ITS | Data Portability ---
Author Organization [facility] Address [address] [place] [address] [place] [address] Care Team Providers Care [employer] Supervisor Name Role Phone BINXIN DANIELA Primary Care Provider Assessment Encounter Date Assessment Date Assessment LastModified by Organization Details LastModified Time 07/22/2021 07/22/2021 Annual gynecological exam performed. Patient will come back in a year unless there are new symptoms. Not available 07/21/2021 15:23:42 Plan of Treatment Reminders Order Date Submit Date Provider Last Modified By Organization Details Last Modified Time Details Appointments None recorded. Lab urinalysis, dipstick 2020 021 [email or web address] [facility], [address], [place], [address], 10:19:21 urinalysis, dipstick 2022 023 [place], [address], [address], [place], [address], 3 15:25:08 urinalysis, dipstick 2022 023 [email or web address] [address], [address], [place], [address], 3 15:59:34 urinalysis, dipstick 2022 023 [email or web address] 1 [address], [address], [place], [address], 3 12:38:23 culture, urine 2022 023 [facility] (Lab), [address], [place], [address], 3 06:50:27 Referral None recorded. Procedures None recorded. Surgeries None recorded. Imaging US, pelvis, complete [address] (Imaging), [facility] [address], [place], [address], 2 15:02:04 US, abdomen, complete [address] (Imaging), [facility]0 [facility] [address], [place], [address], 2 15:02:04 US, bladder [address] (Imaging), [address], [place], [address], 2 15:02:03 US, kidney [address] (Imaging), [facility], [place], [address], 2 15:02:03 US, pelvis, complete 2022 023 [facility] Scheduling, [address] [facility], [place], [address], 4 12:46:08 US, pelvis 2022 023 [email or web address] [address], [place], [address], 3 19:06:01 US, transvagina l 2022 023 [email or web address] [facility], [address], [place], [address], 3 19:06:01 Medication Orders Macrobid 100 mg capsule 2022 023 [email or web address] 1 [id number], [address], [place], [place], [id number], 10:23:49 Patient TargetsNo targets recorded. Patient InstructionsNo instructions recorded. Reason for Referral None Reported. Results Created Date Observation Date Name Description Value Unit Range Abnormal Flag Note LastModifiedBy Organization Detail LastModifiedTime 07/18/2007/18/2021 CULTU RE: URINE result report SEE RESULT S BELOW Test: Cultu re: Urine Speci men Sourc e: Urine - Clean Catch Speci men Type: Urine Speci men Date: 2020 4:51 PM Resul t Date: 2020 9:04 PM Resul t Statu s: Final resul t Abnor mal: No Resul ting Lab: [facility] [address] [facility] [address] Tel: CULTU RE ----- ----- ----- --- No growt h in 1 day (dete ction level of 10,00 0 colon ies / ml.) Not Available [facility] (Lab) [address], [place], [address], 07/19/2021 22:08:10 07/18/20 21 07/18/2021 urina lysis , dipst ick Leukocytes NEG Not Available [facility] [address], [place], [address], 07/18/2021 16:52:55 07/18/20 21 07/18/2021 urina lysis , dipst ick Nitrite NEG Not Available [facility] [address], [place], [address], 07/18/2021 16:52:55 07/18/2007/18/2021 urina lysis , dipst ick Urobilinogen NEG Not Available [facility] debbie [address], [place], [address], 07/18/2021 16:52:55 07/18/2007/18/2021 urina lysis , dipst ick Protein NEG Not Available [facility] [address], [place], [address], 07/18/2021 16:52:55 07/18/2007/18/2021 urina lysis , dipst ick pH 5 Not Available [facility] [address], [place], [address], 07/18/2021 16:52:55 07/18/2007/18/2021 urina lysis , dipst ick Specific [place] 1.030 [facility] Available [facility] [address], [place], [address], 07/18/2021 16:52:55 07/18/2007/18/2021 urina lysis , dipst ick Ketone NEG Not Available [facility] [address], [place], [address], 07/18/2021 16:52:55 07/18/2007/18/2021 urina lysis , dipst ick Bilirubin NEG Not Available [facility] [address]inth [address], [place], [address], 07/18/2021 16:52:55 07/18/2007/18/2021 urina lysis , dipst ick Glucose NEG Not Available [facility] [address], [place], [address], 07/18/2021 16:52:55 07/18/20 21 07/18/2021 urina lysis , dipst ick Appearance CLEAR Not Available [facility] [address], [place], [address], 07/18/2021 16:52:55 07/18/2007/18/2021 urina lysis , dipst ick Color YELLOW Not Available [facility] [address], [place], [address], 07/18/2021 16:52:55 07/22/2007/22/2021 urina lysis , dipst ick Leukocytes neg Not Available [facility] [address], [place], [address], 07/22/2021 10:12:24 07/22/2007/22/2021 urina lysis , dipst ick Nitrite neg Not Available [facility] [address], [place], [address], 07/22/2021 10:12:24 07/22/20 21 07/22/2021 urina lysis , dipst ick Urobilinogen neg Not Available [facility] debbie [address], [place], [address], 07/22/2021 10:12:24 07/22/20 21 07/22/2021 urina lysis , dipst ick Protein trace Not Available [facility] [address], [place], [address], 07/22/2021 10:12:24 07/22/20 21 07/22/2021 urina lysis , dipst ick pH 5 Not Available [facility] [address], [place], [address], 07/22/2021 10:12:24 07/22/20 21 07/22/2021 urina lysis , dipst ick Specific [place] 1.020 Not Available [facility] lle [address], [place], [address], 07/22/2021 10:12:24 07/22/2007/22/2021 urina lysis , dipst ick Ketone neg Not Available [facility] [address], [place], [address], 07/22/2021 10:12:24 07/22/2007/22/2021 urina lysis , dipst ick Bilirubin neg Not Available [facility] [address], [place], [address], 07/22/2021 10:12:24 07/22/2007/22/2021 urina lysis , dipst ick Glucose neg Not Available [facility] [address], [place], [address], 07/22/2021 10:12:24 07/22/2007/22/2021 urina lysis , dipst ick Appearance clear Not Available [facility] [address], [place], [address], 07/22/2021 10:12:24 07/22/2007/22/2021 urina lysis , dipst ick Color yellow Not Available [facility] [address], [place], [address], 07/22/2021 10:12:24 04/28/20 23 04/28/2023 URINA LYSIS , WITH MICRO SCOPI C, REFLE X CULTU RE color, urine Light Yellow Not Available [facility] (Lab) [address] [place], [address], 04/30/2023 11:55:44 04/28/20 23 04/28/2023 URINA LYSIS , WITH MICRO SCOPI C, REFLE X CULTU RE clarity, urine Turbid abnormal Not Available [facility] (Lab) [address] [place], [address], 04/30/2023 11:55:44 04/28/20 23 04/28/2023 URINA LYSIS , WITH MICRO SCOPI C, REFLE X CULTU RE specific gravity, urine 1.025 . 1.005- 1.035 Not Available [facility] (Lab) [address] [facility], [place], [address], 04/30/2023 11:55:44 04/28/20 23 04/28/2023 URINA LYSIS , WITH MICRO SCOPI C, REFLE X CULTU RE pH, urine 5.5 . 5.0-7. 0 Not Available [facility] (Lab) [address] [facility], [place], [address], 04/30/2023 11:55:44 04/28/20 23 04/28/2023 URINA LYSIS , WITH MICRO SCOPI C, REFLE X CULTU RE protein, UA Negati ve mg/dL negati ve, -20 Not Available [facility] (Lab) [address] [facility], [place], [address], 04/30/2023 11:55:44 04/28/20 23 04/28/2023 URINA LYSIS , WITH MICRO SCOPI C, REFLE X CULTU RE glucose, urine Normal mg/dL negati ve Not Available [facility] (Lab) [address] [facility], [place], [address], 04/30/2023 11:55:44 04/28/20 23 04/28/2023 URINA LYSIS , WITH MICRO SCOPI C, REFLE X CULTU RE ketones, urine Negati ve mg/dL negati ve Not Available [facility] (Lab) [address] [place], [address], 04/30/2023 11:55:44 04/28/20 23 04/28/2023 URINA LYSIS , WITH MICRO SCOPI C, REFLE X CULTU RE bilirubin, urine Negati ve negati ve Not Available [facility] (Lab) [address] [place], [address], 04/30/2023 11:55:44 04/28/20 23 04/28/2023 URINA LYSIS , WITH MICRO SCOPI C, REFLE X CULTU RE blood, urine Negati ve negati ve Not Available [facility] (Lab) [address] [facility], [place], [address], 04/30/2023 11:55:44 04/28/20 23 04/28/2023 URINA LYSIS , WITH MICRO SCOPI C, REFLE X CULTU RE nitrite, urine Negati ve negati ve Not Available [facility] (Lab) [address] [facility], [place], [address], 04/30/2023 11:55:44 04/28/20 23 04/28/2023 URINA LYSIS , WITH MICRO SCOPI C, REFLE X CULTU RE leukocyte esterase, urine 75 say/u L negati ve abnormal Not Available [facility] (Lab) [address] [facility], [place], [address], 04/30/2023 11:55:44 04/28/20 23 04/28/2023 URINA LYSIS , WITH MICRO SCOPI C, REFLE X CULTU RE urobilinogen , urine Normal mg/dL normal , <2.0 Not Available [facility] (Lab) [address] [place], [address], 04/30/2023 11:55:44 04/28/20 23 04/28/2023 URINA LYSIS , WITH MICRO SCOPI C, REFLE X CULTU RE RBC, urine 0-2 /hpf none, 0-2 Not Available [facility] (Lab) [address] [place], [address], 04/30/2023 11:55:44 04/28/20 23 04/28/2023 URINA LYSIS , WITH MICRO SCOPI C, REFLE X CULTU RE WBC, urine 6-9 /hpf none, 0-5 abnormal Not Available [facility] (Lab) [address] [place], [address], 04/30/2023 11:55:44 04/28/20 23 04/28/2023 URINA LYSIS , WITH MICRO SCOPI C, REFLE X CULTU RE squamous epithelial cells, urine Modera te /hpf none abnormal Not Available [facility] (Lab) [address] [facility], [place], [address], 04/30/2023 11:55:44 04/28/20 23 04/28/2023 URINA LYSIS , WITH MICRO SCOPI C, REFLE X CULTU RE bacteria, urine Trace /hpf none abnormal Not Available [facility] (Lab) [address] [facility], [place], [address], 04/30/2023 11:55:44 04/28/20 23 04/28/2023 URINA LYSIS , WITH MICRO SCOPI C, REFLE X CULTU RE hyaline cast, urine None /lpf none, 0-2 Not Available [facility] (Lab) [address] [facility], [place], [address], 04/30/2023 11:55:44 04/28/20 23 04/28/2023 URINA LYSIS , WITH MICRO SCOPI C, REFLE X CULTU RE mucus, urine Modera te /hpf none, trace, few abnormal Urine Cultu re to follo w. Not Available [facility] (Lab) [address] [facility], [place], [address], 04/30/2023 11:55:44 04/28/20 23 04/28/2023 CULTU RE: URINE result report SEE RESULT S BELOW Test: Cultu re: Urine Speci men Type: Urine Speci men Date: 2022 4:34 PM Resul t Date: 2022 10:51 AM Resul t Statu s: Final resul t Abnor mal: No Resul ting Lab: [facility] [address] [facility] [address] Tel: CULTU RE ----- ----- ----- --- Cultu re resul t (>=3 organ isms prese nt) indic ates possi ble conta minat ion. Repea t cultu re if sympt oms indic ate. Not Available [facility] (Lab) [address], [place], [address], 04/30/2023 11:55:45 04/28/20 23 04/28/2023 urina lysis , dipst ick Leukocytes ++ Not Available [facility] celestina [address], [place], [address], 04/28/2023 15:24:42 04/28/20 23 04/28/2023 urina lysis , dipst ick Protein trace Not Available [facility] [address], [place], [address], 04/28/2023 15:24:42 04/28/20 23 04/28/2023 urina lysis , dipst ick pH 5 Not Available [facility] [address], [place], [address], 04/28/2023 15:24:42 04/28/20 23 04/28/2023 urina lysis , dipst ick Blood + Not Available [facility] [address], [place], [address], 04/28/2023 15:24:42 04/28/20 23 04/28/2023 urina lysis , dipst ick Specific [place] 1.025 Not Available [facility] [address], [place], [address], 04/28/2023 15:24:42 05/17/20 23 05/17/2023 URINA LYSIS , WITH MICRO SCOPI C, REFLE X CULTU RE color, urine Yellow Not Available [facility] (Lab) [address], [place], [address], 05/18/2023 04:22:17 05/17/20 23 05/17/2023 URINA LYSIS , WITH MICRO SCOPI C, REFLE X CULTU RE clarity, urine Clear Not Available [facility] (Lab) [address] [facility], [place], [address], 05/18/2023 04:22:17 05/17/20 23 05/17/2023 URINA LYSIS , WITH MICRO SCOPI C, REFLE X CULTU RE specific gravity, urine 1.026 . 1.005- 1.035 Not Available [facility] (Lab) [address] [facility], [place], [address], 05/18/2023 04:22:17 05/17/20 23 05/17/2023 URINA LYSIS , WITH MICRO SCOPI C, REFLE X CULTU RE pH, urine 7.0 . 5.0-7. 0 Not Available [facility] (Lab) [address] [facility], [place], [address], 05/18/2023 04:22:17 05/17/20 23 05/17/2023 URINA LYSIS , WITH MICRO SCOPI C, REFLE X CULTU RE protein, UA 20 mg/dL negati ve, 10-20 Not Available [facility] (Lab) [address] [facility], [place], [address], 05/18/2023 04:22:17 05/17/20 23 05/17/2023 URINA LYSIS , WITH MICRO SCOPI C, REFLE X CULTU RE glucose, urine Normal mg/dL negati ve Not Available [facility] (Lab) [address] [place], [address], 05/18/2023 04:22:17 05/17/20 23 05/17/2023 URINA LYSIS , WITH MICRO SCOPI C, REFLE X CULTU RE ketones, urine Negati ve mg/dL negati ve Not Available [facility] (Lab) [address] [facility], [place], [address], 05/18/2023 04:22:17 05/17/20 23 05/17/2023 URINA LYSIS , WITH MICRO SCOPI C, REFLE X CULTU RE bilirubin, urine Negati ve negati ve Not Available [facility] (Lab) [address] [facility], [place], [address], 05/18/2023 04:22:17 05/17/20 23 05/17/2023 URINA LYSIS , WITH MICRO SCOPI C, REFLE X CULTU RE blood, urine Negati ve negati ve Not Available [facility] (Lab) [address] [facility], [place], [address], 05/18/2023 04:22:17 05/17/20 23 05/17/2023 URINA LYSIS , WITH MICRO SCOPI C, REFLE X CULTU RE nitrite, urine Negati ve negati ve Not Available [facility] (Lab) [address] [facility], [place], [address], 05/18/2023 04:22:17 05/17/20 23 05/17/2023 URINA LYSIS , WITH MICRO SCOPI C, REFLE X CULTU RE leukocyte esterase, urine Negati ve say/u L negati ve Not Available [facility] (Lab) [address] [facility], [place], [address], 05/18/2023 04:22:17 05/17/20 23 05/17/2023 URINA LYSIS , WITH MICRO SCOPI C, REFLE X CULTU RE urobilinogen , urine Normal mg/dL normal , <2.0 Not Available [facility] (Lab) [address] [facility], [place], [address], 05/18/2023 04:22:17 05/17/20 23 05/17/2023 URINA LYSIS , WITH MICRO SCOPI C, REFLE X CULTU RE RBC, urine 0-2 /hpf none, 0-2 Not Available [facility] (Lab) [address] [facility], [place], [address], 05/18/2023 04:22:17 05/17/20 23 05/17/2023 URINA LYSIS , WITH MICRO SCOPI C, REFLE X CULTU RE WBC, urine 0-5 /hpf none, 0-5 Not Available [facility] (Lab) [address] [facility], [place], [address], 05/18/2023 04:22:17 05/17/20 23 05/17/2023 URINA LYSIS , WITH MICRO SCOPI C, REFLE X CULTU RE squamous epithelial cells, urine Few /hpf none abnormal Not Available [facility] (Lab) [address] [facility], [place], [address], 05/18/2023 04:22:17 05/17/20 23 05/17/2023 URINA LYSIS , WITH MICRO SCOPI C, REFLE X CULTU RE bacteria, urine Trace /hpf none abnormal Not Available [facility] (Lab) [address] [facility], [place], [address], 05/18/2023 04:22:17 05/17/20 23 05/17/2023 URINA LYSIS , WITH MICRO SCOPI C, REFLE X CULTU RE hyaline cast, urine None /lpf none, 0-2 Not Available [facility] (Lab) [address] [facility], [place], [address], 05/18/2023 04:22:17 05/17/20 23 05/17/2023 URINA LYSIS , WITH MICRO SCOPI C, REFLE X CULTU RE mucus, urine Many /hpf none, trace, few abnormal Urine Cultu re not perfo rmed per refle x prosper col. Not Available [facility] (Lab) [address] [facility], [place], [address], 05/18/2023 04:22:17 05/17/20 23 05/17/2023 urina lysis , dipst ick Leukocytes trace Not Available [address] [place], [address], 05/17/2023 15:58:59 05/17/20 23 05/17/2023 urina lysis , dipst ick Nitrite negati ve Not Available [facility] [address], [place], [address], 05/17/2023 15:58:59 05/17/20 23 05/17/2023 urina lysis , dipst ick Protein trace Not Available [facility] [address], [place], [address], 05/17/2023 15:58:59 05/17/20 23 05/17/2023 urina lysis , dipst ick Blood trace Not Available [facility] [address], [place], [address], 05/17/2023 15:58:59 05/17/20 23 05/17/2023 urina lysis , dipst ick Specific [place] 1.020 Not Available [facility] [address], [place], [address], 05/17/2023 15:58:59 05/17/20 23 05/17/2023 urina lysis , dipst ick Glucose normal Not Available [facility] [address], [place], [address], 05/17/2023 15:58:59 09/11/20 23 09/11/2023 urina lysis , dipst ick Leukocytes +2 Not Available [facility] cel[address], [place], [address], 09/11/2023 12:37:23 09/11/20 23 09/11/2023 urina lysis , dipst ick Nitrite normal Not Available [facility] [address], [place], [address], 09/11/2023 12:37:23 09/11/20 23 09/11/2023 urina lysis , dipst ick Urobilinogen normal Not Available [facility] [address], [place], [address], 09/11/2023 12:37:23 09/11/20 23 09/11/2023 urina lysis , dipst ick Protein trace Not Available [facility] [address], [place], [address], 09/11/2023 12:37:23 09/11/20 23 09/11/2023 urina lysis , dipst ick pH 7 Not Available [facility] [address], [place], [address], 09/11/2023 12:37:23 09/11/20 23 09/11/2023 urina lysis , dipst ick Specific [place] 1.015 Not Available [facility] [address], [place], [address], 09/11/2023 12:37:23 09/11/20 23 09/11/2023 urina lysis , dipst ick Ketone normal Not Available [facility] [address], [place], [address], 09/11/2023 12:37:23 09/11/20 23 09/11/2023 urina lysis , dipst ick Bilirubin normal Not Available [facility] [address], [place], [address], 09/11/2023 12:37:23 09/11/20 23 09/11/2023 urina lysis , dipst ick Glucose normal Not Available [facility] [address], [place], [address], 09/11/2023 12:37:23 09/11/20 23 09/11/2023 urina lysis , dipst ick Appearance normal Not Available [facility] [address], [place], [address], 09/11/2023 12:37:23 09/11/20 23 09/11/2023 urina lysis , dipst ick Color normal Not Available [facility] [address], [place], [address], 09/11/2023 12:37:23 09/13/20 23 09/13/2023 CULTU RE: URINE result report SEE RESULT S BELOW Test: Cultu re: Urine Speci men Sourc e: Urine Voide d Speci men Type: Urine Speci men Date: 2022 3:45 PM Resul t Date: 2022 5:45 AM Resul t Statu s: Final resul t Abnor mal: No Resul ting Lab: [facility] [address] [facility] [address] Tel: CULTU RE ----- ----- ----- --- No growt h in 1 day (dete ction level of 10,00 0 colon ies / ml.) Not Available [facility] (Lab) [address] [facility], [place], [address], 09/15/2023 06:50:26 09/20/20 23 09/20/2023 US, pelvi s No observ ation record ed. [email or web address] [facility] [address], [place], [address], 09/20/2023 18:13:11 09/20/20 23 09/20/2023 US, trans vagin al No observ ation record ed. [email or web address] [facility] [address], [place], [address], 09/20/2023 18:13:03 09/20/20 23 09/20/2023 US, pelvi s No observ ation record ed. LISA Sykes [address], [place], [address], 09/28/2023 12:51:11 Result Notes None recorded. 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 15:18:51 Deep pain on intercou rse [id number] Completed 201707/21/2021 Deep dyspareu mirna;Prac mariam ID: 0001 Diane Richardson [facility] 15:18:40 Pelvic and perineal pain [id number] Completed 201707/21/2021 Pelvic and perineal pain;Pra ctice ID: [address] [facility] 15:18:47 Urinary tract infectio us disease [id number] Completed 201707/21/2021 Urinary tract infectio n, site not specifie d;Practi ce ID: 0001 Diane rodriguez [facility] 15:18:53 Asymptom atic microsco pic hematuri a [id number] Completed 201707/21/2021 Asymptom atic microsco pic hematuri a;Practi ce ID: 0001 Diane Richardson [facility] 15:18:39 Pregnanc y test negative [id number] Completed 201707/21/2021 Encounte r for pregnanc y test, result negative ;Practic e ID: 0001 Diane Richardson [facility] 15:18:48 Blood leukocyt e number above referenc e range [id number] Completed 201907/21/2021 Elevated white blood cell count, unspecif ied;Prac mariam ID: [address] [facility] 15:18:45 History of urinary stone [id number] Completed 201907/21/2021 Personal history of urinary calculi; Practice ID: [address] [facility] 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 15:18:50 Problem Notes None recorded. Procedures Surgical History Date Name Laterality Status Provider Name and Address Organization Details Recorded Time 07/17/20 20 Date of Last Pap Smear completed [facility] 07/21/2021 15:21:10 07/02/20 20 Date of Last Mammogram completed [facility] 07/21/2021 16:31:16 10/11/19 20 biopsy of breast completed Anabelle [facility] 09/11/2023 13:34:33 05/11/20 18 Date of Last Colonoscopy completed Fabiola Blount [facility] 04/28/2023 15:22:35 10/11/19 18 lithotripsy completed [facility] 09/11/2023 13:32:07 10/11/19 17 biopsy of breast completed [facility] 09/11/2023 13:34:51 10/11/19 12 Breast Biopsy completed [facility] 09/11/2023 13:35:07 10/11/19 12 Abdominoplasty completed [facility] 09/11/2023 13:30:10 10/11/19 11 Endometrial Ablation completed [facility] 09/11/2023 13:33:58 10/11/19 10 lithotripsy completed [facility], [facility] 09/11/2023 13:33:25 10/11/19 09 Hernia repair w/mesh completed [facility] 09/11/2023 13:30:17 08/09/20 08 section completed [facility] 09/11/2023 13:32:37 08/18/20 06 section completed [facility] 09/11/2023 13:32:29 10/11/19 05 Laparoscopy completed [facility] 09/11/2023 13:35:38 10/11/18 95 lumbar spinal fusion completed [facility] 09/11/2023 13:31:56 Imaging Results Imaging Date Name Status LastModified by Organization Details LastModified Time 09/20/2023 US, pelvis completed [email or web address] Hernan [address], [place], [address], 09/20/2023 18:13:11 09/20/2023 US, transvaginal completed [email or web address] Jose Elias claros [address], [place], [address], 09/20/2023 18:13:03 09/20/2023 US, pelvis completed LISA Mony [address], [place], [address], 09/28/2023 12:51:11 Procedure Notes None recorded. Medical Equipment None Reported. Allergies Allergen ID Allergen Name Allergen Category Reaction Reaction Severity Criticality Documentation Date Start Date Code Code System Note Provider Name and Address Organization Details Recorded Time 34764 ciproflox acin medicatio n diarrhea Not available Not available 09/27/2020 2551 RxNorm Smitha De La Cruz [facility] 3 16:02:14 2005 Non-stero idal anti-infl ammatory agent (product) medicatio n Not available Not available Not available 06/21/2020 79549 005 SNOMED FACE SWELL ING Smitha De La Cruz [facility] 3 16:02:30 2291 aspirin medicatio n Not available Not available Not available 07/17/2020 1191 RxNorm FACE SWELL ANGEL De La Cruz [facility] 3 16:02:24 2292 Cipro medicatio n Not available Not available Not available 07/17/2020 46497 3 RxNorm Diane Richardson [facility] 1 16:42:24 2293 clarithro mycin medicatio n Not available Not available Not available 07/17/2020 22753 [facility] 0 09:43:54 2294 erythromy cinthia medicatio n vomiting Not available Not available 07/17/2020 4053 RxNorm Estefany rodriguez, [facility] 0 09:44:00 2295 wheat gluten extract food Not available Not available Not available 07/17/2020 42148 81 [facility] 0 09:44:06 2296 ibuprofen medicatio n Not available Not available Not available 07/17/2020 5640 RxNorm [facility] 0 09:44:11 2297 midazolam medicatio n Not available Not available Not available 07/17/2020 6960 RxNorm Estefany Hawk null, [facility] 0 09:44:20 2298 naproxen medicatio n Not available Not available Not available 07/17/2020 7258 RxNorm Estefany Hawk [facility], [facility] 0 09:44:25 2299 tramadol medicatio n hallucina tions Not available Not available 07/17/2020 69657 RxNorm Smitha De La Cruz null, [facility] 3 16:01:37 41633 Biaxin medicatio n Not available Not available Not available 09/11/202349842 9 RxNorm Anabelle Craig [facility], [facility] 3 13:37:34 Medications Name Sig Start Date Stop Date Status Note LastModified by Organization Details LastModified Time cyclobenz aprine 10 mg tablet TAKE 1 TABLET BY MOUTH THREE TIMES DAILY NEEDED FOR MUSCLE SPASM active Not Available Not Available No t Available Aviane 0.1 mg-20 mcg tablet take 1 tablet by oral route every day 06/27 completed Prescrib ed Elsewher e: No Locat ion: [facility] odify By: deloris manning DateTime : 06/24/20 18 09:53:23 AM Not Available Not Available Not Available azithromy cinthia 250 mg tablet TAKE 2 TABLETS BY MOUTH FOR 1 DAY THEN TAKE 1 TABLET BY MOUTH DAILY FOR 4 DAYS 04/28 completed Not Available Not Available Not Available Lidocaine Viscous 2 % mucosal solution 06/21 completed Not Available Not Available Not Available fluconazo le 150 mg tablet TAKE 1 TABLET BY MOUTH ONCE active Not Available Not Available No t Available valacyclo vir 1 gram tablet 06/21 completed Not Available Not Available Not Available hydrocodo ne 5 mg-acetam inophen 325 mg tablet TAKE 1 TABLET BY MOUTH EVERY 6 HOURS NEEDED FOR PAIN 09/11 completed Not Available Not Available Not Available Claritin 10 mg tablet take 1 tablet by oral route every day 06/22/ 2017 active Prescrib ed Elsewher e: Yes Loca tion: Jose Elias claros [facility] odify By: [email or web address] Encounte r DateTime : 04/01/20 17 08:30:00 AM Not Available Not Available Not Available ondansetr on HCl 4 mg tablet TAKE 1 TABLET BY MOUTH EVERY DAY 04/28 completed Not Available Not Available Not Available prednison e 20 mg tablet 06/21 completed Not Available Not Available Not Available FML Liquifilm 0.1 % eye drops,deshawn pension INSTILL ONE DROP INTO THE AFFECTED EYE THREE TIMES DAILY X 1 WEEK NEEDED FOR PAIN 04/28 completed Not Available Not Available Not Available doxycycli ne hyclate 50 mg capsule 04/28 completed Not Available Not Available Not Available penicilli n V potassium 500 mg tablet TAKE 1 TABLET BY MOUTH TWICE DAILY FOR 10 DAYS 04/28 completed Not Available Not Available Not Available Zyrtec 10 mg tablet take 1 tablet by oral route every day 04/28 completed Prescrib ed Elsewher e: Yes Loca tion: Jose Elias claros [facility] odify By: jocelyn Sommers r DateTime : 03/25/20 16 10:00:00 AM Not Available Not Available Not Available ciproflox acin 500 mg tablet take 1 tablet by oral route every 12 hours 07/08 completed Prescrib ed Elsewher e: No Locat ion: Jose Elias claros [facility] odify By: deloris manning DateTime : 07/07/20 18 04:00:00 PM Not Available Not Available Not Available phenazopy ridine 100 mg tablet TAKE 1 TABLET BY MOUTH THREE TIMES DAILY FOR 7 DAYS 04/28 completed Not Available Not Available Not Available baclofen 10 mg tablet 06/21 completed Not Available Not Available Not Available hydrocodo ne 7.5 mg-acetam inophen 325 mg tablet TAKE 1 TABLET BY MOUTH EVERY 6 HOURS 09/11 completed Not Available Not Available Not Available cephalexi n 500 mg capsule TAKE 1 CAPSULE BY MOUTH EVERY 12 HOURS 09/11 completed Not Available Not Available Not Available triamcino lone acetonide 55 mcg nasal spray aerosol USE 2 SPRAYS IN EACH NOSTRIL DAILY 04/28 completed Not Available Not Available Not Available codeine 10 mg-guaife nesin 100 mg/5 mL oral liquid TAKE 7.5 ML BY MOUTH EVERY 6 HOURS NEEDED FOR COUGH 04/28 completed Not Available Not Available Not Available ergocalci ferol (vitamin D2) 1,250 mcg (50,000 unit) capsule 06/21 completed Not Available Not Available Not Available azelastin e 137 mcg (0.1 %) nasal spray INHALE 1 SPRAY INTO EACH NOSTRIL EVERY 12 HOURS 04/28 completed Not Available Not Available Not Available methylpre dnisolone 4 mg tablets in a dose pack FOLLOW PACKAGE DIRECTIO NS 04/28 completed Not Available Not Available Not Available albuterol sulfate HFA 90 mcg/actua tion aerosol inhaler INHALE 2 PUFFS BY MOUTH EVERY 4 HOURS NEEDED FOR SHORTNES S OF BREATH OR WHEEZING active Not Available Not Available No t Available ondansetr on 4 mg disintegr ating tablet DISSOLVE 1 TABLET ON THE TONGUE EVERY 6 HOURS NEEDED FOR NAUSEA OR VOMITING active Not Available Not Available No t Available fluticaso ne propionat e 50 mcg/actua tion nasal spray,deshawn pension SHAKE LIQUID AND USE 1 SPRAY IN EACH NOSTRIL TWICE DAILY active Not Available Not Available No t Available neomycin 3.5 mg/g-poly myxin B 10,000 unit/g-de xameth 0.1 % eye oint APPLY TO AFFECTED LID OF RIGHT EYE THREE TIMES DAILY FOR 1 WEEK 04/28 completed Not Available Not Available Not Available Bactrim DS 800 mg-160 mg tablet take 1 tablet by oral route every 12 hours 05/23 completed Prescrib matilde Elsew e: No Locat ion: [facility] odify By: [email or web address] Encount er DateTime : 07/08/20 18 01:50:33 PM Not Available Not Available Not Available moxifloxa cinthia 0.5 % eye drops INSTILL 1 DROP IN LEFT EYE FOUR TIMES DAILY. 04/28 completed Not Available Not Available Not Available nitrofura ntoin monohydra te/macroc rystals 100 mg capsule TAKE 1 CAPSULE BY MOUTH EVERY 12 HOURS FOR 5 DAYS active Not Available Not Available No t Available Tylenol 07/17 completed Not Available Not Available Not Available Zyrtec 07/17 completed Not Available Not Available Not Available Seasoniqu e 0.15 mg-30 mcg (84)/10 mcg(7) tablets,3 month dose pack take 1 tablet by oral route every day 06/27 completed Prescrib ed Elsewher e: No Locat ion: Jose Elias claros [facility] odify By: deloris Perales ter DateTime : 06/27/20 18 10:38:40 AM Not Available Not Available Not Available Quasense 0.15 mg-30 mcg (91) tablets,3 month dose pack take 1 tablet by oral route every day 06/27 completed Prescrib ed Elsewher e: No Locat ion: Jose Elias claros [facility] odify By: deloris Perales ter DateTime : 06/20/20 18 01:00:00 PM Not Available Not Available Not Available Pataday 0.2 % eye drops instill 1 drop by ophthalm ic route every day into affected eye(s) active Prescrib ed Elsewher e: Yes Loca tion: Jose Elias claros [facility] odify By: britni saucedo Encoun ter DateTime : 07/07/20 18 04:00:00 PM Not Available Not Available Not Available cholecalc iferol (vitamin D3) 1,250 mcg (50,000 unit) capsule TAKE 1 CAPSULE BY MOUTH ONCE A WEEK 09/11 completed Not Available Not Available Not Available Xiidra 5 % eye drops in a dropperet te INSTILL 1 DROP IN BOTH EYES TWICE DAILY 04/28 completed Not Available Not Available Not Available Tylenol 325 mg capsule active Prescrib ed Elsewher e: Yes Loca tion: Marguerite hyacinth [facility] odify By: britni z Encoun ter DateTime : 07/07/20 18 04:00:00 PM Not Available Not Available Not Available Flucelvax Quad 7113-7420 (PF) 60 mcg (15 mcg x 4)/0.5 mL IM syringe 06/21 completed Not Available Not Available Not Available Pataday Twice Daily Relief 0.1 % eye drops INSTILL 1 DROP INTO AFFECTED EYE(S) BY OPHTHALM IC ROUTE 2 TIMES PER DAY AT AN INTERVAL OF 6 TO 8 HOURS 07/17 completed Not Available Not Available Not Available Vitals Date Recorded Body height Body mass index (BMI) Body weight Provider Name and Address Organization Details Last Updated DateTime 07/22/2021 165.1 cm 39.3 kg/m2 148851.8 g Diane Richardson [facility] 07/22/2021 10:06:39 Date Recorded Systolic blood pressure Diastolic blood pressure Provider Name and Address Organization Details Last Updated DateTime 07/22/2021 120 mm[Hg] 80 mm[Hg] Hannah Sharma, [facility] [address], [place], [address], [facility] 07/22/2021 10:50:27 Date Recorded Body height Body mass index (BMI) Body weight Provider Name and Address Organization Details Last Updated DateTime 04/28/2023 165.1 cm 42.4 kg/m2 924054.05 g Fabiola Blount [facility] 04/28/2023 15:22:17 Date Recorded Systolic blood pressure Diastolic blood pressure Provider Name and Address Organization Details Last Updated DateTime 04/28/2023 122 mm[Hg] 80 mm[Hg] Hannah Sharma, [facility] [address], [place], [address], [facility] 04/28/2023 15:37:39 Date Recorded Body height Body mass index (BMI) Body weight Systolic blood pressure Diastolic blood pressure Provider Name and Address Organization Details Last Updated DateTime 05/17/2023 165.1 cm 42.8 kg/m2 811400.2 4 g 137 mm[Hg] 85 mm[Hg] Smitha De La Cruz [facility] 3 15:57:09 Date Recorded Body height Body mass index (BMI) Body weight Systolic blood pressure Diastolic blood pressure Provider Name and Address Organization Details Last Updated DateTime 09/11/2023 165.1 cm 42.4 kg/m2 587194.0 5 g 127 mm[Hg] 82 mm[Hg] Anabelle Craig [facility] 3 10:23:27 Social History Question Answer Notes LastModified by Organizat ion Details LastModified Time Tobacco Smoking Status Never Smoker Pat Soriafreda rodriguez, [facility] 09/20/2023 16:18:57 Do You Have An Advance Directive? Yes Information not available 07/22/2021 What Is Your Level Of Alcohol Consumption? None Information not available 04/28/2023 Are You Blind Or Do You Have Difficulty Seeing? No Information not available 07/21/2021 What Is Your Level Of Caffeine Consumption? Occasional Information not available 07/21/2021 How Much Tobacco Do You Chew? None Information not available 07/22/2021 In The 14 Days Before Symptom Onset, Have You Had Close Contact With A Laboratory-confir med COVID-19 While That Case Was Ill? No Information not available 07/22/2021 In The 14 Days Before Symptom Onset, Have You Had Close Contact With A Person Who Is Under Investigation For COVID-19 While That Person Was Ill? No Information not available 07/22/2021 Have You Been To An Area Known To Be High Risk For COVID-19? No Information not available 07/22/2021 Are You Deaf Or Do You Have Serious Difficulty Hearing? No Information not available 07/21/2021 What Type Of Diet Are You Following? SPECIFIC Information not available 04/28/2023 What Is The Highest Grade Or Level Of School You Have Completed Or The Highest Degree You Have Received? 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 No Information not available 07/22/2021 Do You Use Protection During Sex? No Information not available 07/22/2021 Do You Use Your Seat Belt Or Car Seat Routinely? Yes Information not available 07/21/2021 Do You Have Smoke And Carbon Monoxide Detectors In Your Home? Yes Information not available 07/21/2021 How Much Tobacco Do You Smoke? No Information not available 07/22/2021 Do You Feel Stressed (tense, Restless, Nervous, Or Anxious, Or Unable To Sleep At Night)? [id number] Information not available 07/21/2021 Do You Use Any Illicit Or Recreational Drugs? No Information not available 07/21/2021 Do You Use Sunscreen Routinely? Yes Information not available 07/21/2021 Have You Used IV Drugs? No Information not available 07/22/2021 Sex: Unknown Functional Status Question Answer Note LastModified by Organizat ion Details LastModified Time Are you able to walk? YESWOREST Information not available 07/21/2021 What is your exercise level? Occasional Information not available 04/28/2023 Mental Status None recorded. Family History Relationship Description Onset Age of this Age Resolved Age Notes LastModified by Organization Details LastModified Time Mother Carcinoma in situ of breast Not available 2022 16:18:56 Mother Hypercholest erolemia [email or web address] Not available 2019 09:36:28 Mother Excision of cyst of ovary [email or web address] Not available 2022 16:18:56 Mother Asthma [email or web address] Not available 09:37:03 Maternal Grandmother Hypercholest erolemia [email or web address] Not available 2019 09:36:28 Maternal Grandmother Excision of cyst of ovary Not available 2022 16:18:56 Paternal Grandmother Hypercholest erolemia [email or web address] Not available 2019 09:36:28 Maternal Grandfather Asthma [email or web address] Not available 2019 09:37:03 Brother Asthma [email or web address] Not available 1 09:37:03 Father Diabetes mellitus [email or web address] Not available 2019 09:37:12 Father Depressive disorder [email or web address] Not available 2019 09:37:23 Paternal Grandfather Disorder of cardiovascul ar system [email or web address] Not available 2022 16:18:56 Paternal Grandfather Carcinoma in situ of lung Not available 08/2023 16:18:56 Medical History Condition Response Allergies (Food, seasonal, environmental ) Y Other Y Breast Cancer N Drug/Latex Allergies/Reactions Y Blood Transfusion N Dermatologic Disorders N Lung Disease N Defects or Inherited Disease N Breast Problem Y Gestational Diabetes N Hematologic disorders N Anesthesia Complications N History of STI N Deep Vein Thrombosis N Polycystic ovary syndrome Y Anxiety Disorder N Autoimmune disease N Arthritis N Infertility N Polyps N Acid Reflux (GERD) N History of abnormal pap N Cancer N Stroke N Varicosities N Neurologic/Epilepsy Y Endometriosis Y High Cholesterol N Headaches N Fibromyalgia N Kidney Disease N Heart Problems N Kidney or Bladder Problems Y Thyroid Problems N GI Problems Y Eating Disorder N Anemia Y Art (IVF or FET) N Psychiatric Illness N Ovarian Cancer N Diabetes N Pulmonary (TB, Asthma) N Hepatitis/Liver Disease N No Past Medical History N Eczema N Urinary Tract Infection N Abuse/Domestic Violence N Asthma Y Trauma/Violence N Depression/ depression N Heart Disease N Pre-Eclampsia N Hypertension N Osteoporosis N Thrombophilias N Gynecological History Statement/Question Response Abnormal Pap N Date of Last Mammogram 07/02/2020 Date of LMP 10/11/2010 On BCP's at Conception? N N STIs/STDs N HPV Vaccine N 12 Current Control Method Ablation Age at First Child 26 Date of Last Colonoscopy 05/11/2018 Sexually Active? Y Date of DEXA bone scan Age of first menstrual cycle 11 Date of Last Pap Smear 07/17/2020 Sexual Problems? N Desired Control Method Partner Vas ectomy LMP Unknown N Obstetrics History GPAL:G 2 P 1 0 0 4 Type Value Multiple Births 1 Full Term 1 Living 4 Total 2 Past Encounters Encounter ID Performer Location Encounter Start Date Encounter Closed Date Diagnosis/Indication Diagnosis SNOMED-CT Code Diagnosis ICD10 Code [id number] Hannah Sharma [facility] [address],[facility] [address] 06/21/2020 14:59:25 06/21/2020 17:18:05 Mass of right breast 1340769145 5147453 N63.10 Mass of left breast 1224 683650 7087071 N63.20 [id number] Hannah Sharma [facility] [address],[facility] [address] 07/17/2020 09:32:02 07/17/2020 10:22:59 Gynecologic examination 65229738 Z01.419 [id number] Hannah Sharma [facility] [address],[facility] [address] 07/18/2021 16:24:19 07/21/2021 20:17:51 Urinary symptoms 469297627 R39.9 [id number] Hannah Sharma [facility] [address],[place] [address] 07/22/2021 09:31:43 07/22/2021 10:58:46 Urinary symptoms 155309520 R39.9 Gynecologi c examination 62233875 Z01.419 History of calculus of kidney 235531727 Z87.442 R10.9 R35.0 Pain in pelvis 83919411 R10.2 R10.9 [id number] Hannah Sharma [facility] [address],[place] [address] 04/28/2023 15:07:27 04/28/2023 15:40:57 Urinary symptoms 344170031 R39.9 [id number] Adam Magana MD [facility] [address],[place] [address] 05/17/2023 15:39:12 05/17/2023 16:29:18 Urinary symptoms 708682706 R39.9 [id number] Hannah Shrama [facility] [address],[place] [address] 09/11/2023 10:03:43 09/14/2023 12:01:45 Pain in pelvis 81930367 R10.2 [id number] Elizabeth Richardson [facility] [address],[place] [address] 09/20/2023 16:18:36 09/20/2023 17:29:18 Pain in pelvis 68877610 R10.2 Health Concerns Section Related Observation LastModified by Organization Detai ls LastModified Time None Recorded Concern Status LastModified by Organization Details LastModified Time None Recorded Advance Directives Directive Y: Payers Encounter Date Sequence Insurance Name Policy Number Policy Bryant Covered Member ID Bryant Member ID Guarantor Name 07/22/2021 1 [place] [id number] Damon Nicole [id number] Damon Nicole II 04/28/2023 1 [place] [id number] Damon Nicole [id number] Damon Nicole II 05/17/2023 1 [place] [id number] Damon Nicole [id number] Damon Nicole II 09/11/2023 1 [place] [id number] Damon Nicole [id number] Damon Nicole II 09/20/2023 1 [place] [id number] Damon Nicole [id number] Damon Nicole II Notes Date Note Type Note Provider Name and Address Organization Details Recorded Time 07/22/2021 text/html Annual GYNReport ed bypatient.Menstrual cycle:Normal menses Urinary symptoms:No hematuria; No incontinence;Increas ed urinary frequency;Nocturia; Flank pain Hx of Kidney stones Vulva:No genital lesion Vagina:Normal vaginal discharge Breast:No breast pain; No breast lump; No nipple discharge Current Contraception:Satisf ied with current contraception; Monogamous relationship; Tubal ligation Sexual complaints:No sexual complaints; No pain during intercourse; Normal libido Menopausal Symptoms:No menopausal symptoms; Normal vaginal lubrication Psychological symptoms:No depression; No anxiety; No PMDD Preventive measures:Encourage self breast examination; Encourage regular exercise; Encourage no tobacco use; Encourage regular mammograms starting age 40; Followed with Q3 year pap smear and high risk HPV typing; Needs to schedule mammogram (Breast care with [facility]) [facility] [address], [place], [address], [facility] 07/22/2021 10:53:15 04/28/2023 text/html Here today for urinary sx's of urinary urgency, bladder spasms and frequency since returning this week from vacation. Neg pain of abd/pelvis/flankNeg GI sx'sNeg N/V/F/C/DNeg Vag d/c, odor, irritation, itching Hannah Sharma [facility] [address], [place], [address], [facility] 04/28/2023 15:39:26 05/17/2023 text/html this patient is a 42-year-old female who presents for urinary urgency. Patient reports bladder spasm. She has had this for about 2 months. She has a history of kidney stones. She was treated recently for urinary tract infection. Urine culture at that time did not grow any bacteria out a. However, she did have blood on her urine dip and some white cells. Today again she has few red blood cells and few white blood cells. We will culture and perform detailed urinalysis. She should likely see urology again. She is going to contact the urologist in get in to see the Urology people. She will contact us for treatment of UTI if she cannot get in to urology quickly. We will await culture and urinalysis. Spent 20 minutes [id number]. More than 50% was counseling. Adam Magana MD [address], [place], [address], [facility] 05/17/2023 16:25:45 09/11/2023 text/html Kaylie is a perimenopausal white female with Hx of endo-ablation here today to discuss recent ED visit 2wks ago for right sided pelvic pain that had her doubled over. She is feeling better now but still noticing randomly that she will get a sharp stabbing pain in right lower abd quadrant.It does not seem to last long.She usually does not need medication or other therapies to help.However, worried that this feeling is still presentShe has had an ablation uterine and no AUB at this time.Prominent Hx of multiple abd surgeries. Neg pain of abd/flankNeg urinary sx'sNeg GI sx'sNeg N/V/F/C/DNeg Vag d/c, odor, irritation, itchingNeg monogamous Hannah Sharma, [facility] [address], [place], [address], [facility] 09/14/2023 11:44:58 OBGyn Episode Ob Episode Information Episode Created Date Number of Fetuses Patient Bloodtype Patient rh Status Prepregnancy Weight lbs Domestic Partner Domestic Partner Phone Father Name Linesperson Status 07/17/20 20 1 DELETED Gurmeet Calculation GURMEET Calculation Method Initial Gurmeet Date Initial Exam Date Initial Exam Provider Initial Ultrasound Date Last Menstrual Period Date Ultra Sound Weeks Gestation Conception by IVF Embryo Age at Transfer Date of Transfer 0 Eighteen To Twenty Week Gurmeet Update Ultra Sound Date Fundal Height At Umbil Quickening Date Ultra Sound Latest Weeks Gestation Final Gurmeet Confirmed By Final Gurmeet Confirmed Date Final Gurmeet Date Ultra Sound Latest Days Gestation 0 0 Menstrual History Last Menstrual Date Menses Monthly On Bcp Conception Prior Menses Frequency Hcg Plus Date Menarche Onset Age Delivery Information Delivery Date Delivery Type Labor Anesthesia Weeks Gestation Incision Type Labor Labor Length Hrs Delivered By Post Complications Tubal Sterilization Discharge Date Comments 8 Discharge Information Feeding Method Contraceptive Method Maternal HG B and HCT Levels Ob Episode Information Episode Created Date Number of Fetuses Patient Bloodtype Patient rh Status Prepregnancy Weight lbs Domestic Partner Domestic Partner Phone Father Name Linesperson Status 07/17/20 20 1 CLOSED Fetus Data First Name Last Name Admitted to NICU Weight (g) Sex Living Outcome Pediatric Complications Fetus ID Race Codes Race Delivery Type 3940.35 3704 F Full Term 5120 Primary Gurmeet Calculation GURMEET Calculation Method Initial Gurmeet Date Initial Exam Date Initial Exam Provider Initial Ultrasound Date Last Menstrual Period Date Ultra Sound Weeks Gestation Conception by IVF Embryo Age at Transfer Date of Transfer 0 Eighteen To Twenty Week Gurmeet Update Ultra Sound Date Fundal Height At Umbil Quickening Date Ultra Sound Latest Weeks Gestation Final Gurmeet Confirmed By Final Gurmeet Confirmed Date Final Gurmeet Date Ultra Sound Latest Days Gestation 0 0 Menstrual History Last Menstrual Date Menses Monthly On Bcp Conception Prior Menses Frequency Hcg Plus Date Menarche Onset Age Delivery Information Delivery Date Delivery Type Labor Anesthesia Weeks Gestation Incision Type Labor Labor Length Hrs Delivered By Post Complications Tubal Sterilization Discharge Date Comments 6 40 Discharge Information Feeding Method Contraceptive Method Maternal HG B and HCT Levels Ob Episode Information Episode Created Date Number of Fetuses Patient Bloodtype Patient rh Status Prepregnancy Weight lbs Domestic Partner Domestic Partner Phone Father Name Linesperson Status 07/17/20 20 1 DELETED Gurmeet Calculation GURMEET Calculation Method Initial Gurmeet Date Initial Exam Date Initial Exam Provider Initial Ultrasound Date Last Menstrual Period Date Ultra Sound Weeks Gestation Conception by IVF Embryo Age at Transfer Date of Transfer 0 Eighteen To Twenty Week Gurmeet Update Ultra Sound Date Fundal Height At Umbil Quickening Date Ultra Sound Latest Weeks Gestation Final Gurmeet Confirmed By Final Gurmeet Confirmed Date Final Gurmeet Date Ultra Sound Latest Days Gestation 0 0 Menstrual History Last Menstrual Date Menses Monthly On Bcp Conception Prior Menses Frequency Hcg Plus Date Menarche Onset Age Delivery Information Delivery Date Delivery Type Labor Anesthesia Weeks Gestation Incision Type Labor Labor Length Hrs Delivered By Post Complications Tubal Sterilization Discharge Date Comments 8 Discharge Information Feeding Method Contraceptive Method Maternal HG B and HCT Levels Ob Episode Information Episode Created Date Number of Fetuses Patient Bloodtype Patient rh Status Prepregnancy Weight lbs Domestic Partner Domestic Partner Phone Father Name Linesperson Status 07/17/20 20 3 CLOSED Fetus Data First Name Last Name Admitted to NICU Weight (g) Sex Living Outcome Pediatric Complications Fetus ID Race Codes Race Delivery Type 1785.79 1704 F Prematur e 5119 Repeat 1757.66 9 F Prematur e 84999 Repeat 1672.39 3704 F Prematur e 18300 Repeat Gurmeet Calculation GURMEET Calculation Method Initial Gurmeet Date Initial Exam Date Initial Exam Provider Initial Ultrasound Date Last Menstrual Period Date Ultra Sound Weeks Gestation Conception by IVF Embryo Age at Transfer Date of Transfer 0 Eighteen To Twenty Week Gurmeet Update Ultra Sound Date Fundal Height At Umbil Quickening Date Ultra Sound Latest Weeks Gestation Final Gurmeet Confirmed By Final Gurmeet Confirmed Date Final Gurmeet Date Ultra Sound Latest Days Gestation 0 0 Menstrual History Last Menstrual Date Menses Monthly On Bcp Conception Prior Menses Frequency Hcg Plus Date Menarche Onset Age Delivery Information Delivery Date Delivery Type Labor Anesthesia Weeks Gestation Incision Type Labor Labor Length Hrs Delivered By Post Complications Tubal Sterilization Discharge Date Comments 8 32 Discharge Information Feeding Method Contraceptive Method Maternal HG B and HCT Levels
--- OUTSIDE RECORDS SUMMARY | 2024-09-22 13:42 | XMS_ITS ---
Author Organization [facility] Address [address] [place], [place] [id number] Care Team Providers Care Books Salesperson Name Role Phone KYLEE GARCIA Unavailable [phone] Answer, Declined Unavailable Unavailable MARIO GREEN Unavailable [phone] Allergies Allergen (clinical drug ingredient) Drug/Non Drug Allergy documented on EMR Reaction Allergy Type Onset Date Status Anti-Inflammatory Enzyme Unknown Drug Allergy Active Tape Unknown Allergy Active REASON FOR VISIT The patient is wishes to pursue custom orthotics. She has plantar fascitis and it is made worse by her limb length issue. 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 I educated the patient on icing and stretching, supportive shoegear, and the use of orthotic devices. Rec: [place] sock 07/31/2024 Unequal limb length (acquired), unspecified tibia and fibula (ICD-10 - M21.769) The patient was scanned for custom orthotics while held in subtalar joint neutral position. 07/31/2024 Pain in right foot (ICD-10 - M79.671) 07/31/2024 Left foot pain (ICD-10 - M79.672) Plan Of Treatment Treatment Notes Assessment Notes Plantar fascial fibromatosis Plantar Fascitis: I discussed anti-inflammatory treatment options and various means of pronation control with the patient. I educated the patient on icing and stretching, supportive shoegear, and the use of orthotic devices. Rec: [place] sock Unequal limb length (acquire d), unspecified tibia and fibula The patient was scanned for custom orthotics while held in subtalar joint neutral position. Next Appt Details Follow Up: 4 Weeks, Reason: Orthotic dispense x 1 Progress Notes * BECKLEOPOLDO RDOB:1980 (44 yo F)Acc No.[id number]:07/31/2024 Patient:?KIRAN LEOPOLDO R Provider:?Mario Green DPM :1980???Age:44 Y???Sex:Female D ate:07/31/2024 Address:[address] [place], [place] [id number] Subjective: * Chief Complaints: * ???1. The patient is wishes to pursue custom orthotics. She has plantar fascitis and it is made worse by her limb length issue. Custom orthotics help. * HPI: ???HPI:?Follow Up Visit?Patient presents for follow up visit for orthotics. Patient talked to her insurance and is able to be scanned for 1 pair of orthotics. LYNN: lauren.? * ROS:?General / Constitutional:?Patient denies?chills, fever, weakness, night sweats.?Musculoskeletal:?Patient denies?childhood foot problems, weakness.?Patient complains of?limb length ineqaulity, orthotic use, arch pain, heel pain.?Peripheral Vascular:?Patient denies?ulceration of feet, cold extremities.?Skin:?Patient denies?ulcerations, discoloration.?Neurologic:?Patient denies?balance difficulty, confusion, difficulty speaking, dizziness.? * Medical History:? * Allergies:?Tape: Allergy, An ti-Inflammatory Enzyme: Allergy. Objective: * Vitals:? * Examination: ???Constitutional: ?Constitutional?The [...] (acqu ired), unspecified tibia and fibula? Notes: The patient was scanned for custom orthotics while held in subtalar joint neutral position.?? * Procedure Codes:?L3020 FT IN SRT REMV MOLD LNGTUDNL SUPP EA, Modifiers: RT , GA, L3020 FT INSRT REMV MOLD LNGTUDNL SUPP EA, Modifiers: LT , GA * Follow Up:?4 Weeks (Reason: Orthotic dispense x 1) * Billing Information: * Visit Code:? 42365 Office Visit, Est Pt., Level 3. * Procedure Codes:? L3020 FT INSRT REMV MOLD LNGTUDNL SUPP EA. Modifiers: RT, GA L3020 FT INSRT REMV MOLD LNGTUDNL SUPP EA. Modifiers: LT, GA * Sign off status: Completed true * Provider:?Mario Green DPM Date:?07/31/20 Generated for Eder fleming/Leeanne/Raisa on:?09/22/2024 01:42 PM EDUCATION PROGRAM MANAGER History and Physical Notes * HPI (History of Present Illness) Category Sub-Category Detail Notes Category Not es HPI Follow Up Visit Patient presents for follow up visit for orthotics. Patient talked to her insurance and is able to be scanned for 1 pair of orthotics. , MA: mca Examination Category Sub-Category Detail Notes Category Not [...]
--- OUTSIDE RECORDS SUMMARY | 2024-09-22 13:43 | XMS_ITS ---
Author Organization [facility] Address [address] [place], [place] [id number] Care Team Providers Care Air Valve Repairer Name Role Phone KYLEE GARCIA Unavailable [phone] Answer, Declined Unavailable Unavailable MARIO GREEN Unavailable [phone] REASON FOR VISIT Plantar fasciitis fu Encounters Encounter Location Date Provider Diagnosis [facility] [place] [address] [place], [place] [id number] 07/03/2024 MARIO GREEN Plan Of Treatment No Information Progress Notes * LEOPOLDO BECK RDOB:1980 (44 yo F)Acc No.[id number]:07/03/2024 Patient:?KIRAN LEOPOLDO Edwarsd Provider:?Mario Green DPM :1980???Age:44 Y???Sex:Female D ate:07/03/2024 Address[id number] Subjective: * Chief Complaints: * ???1. Plantar fasciitis fu. * Medical History:? Objective: * Vitals:? Assessment: Plan: * Treatment: * Billing Information: * Visit Code:? * Procedure Codes:? * Electronic signature of MARIO GREEN DPM on 09/22/2024 at 01:42 PM WEB MOBILE DESIGNER Sign off status: Pending * Provider:?Mario Green DPM Date:?07/03/20 24 Generated for Eder fleming/Leeanne/eTransmitting on:?09/22/2024 01:42 PM WEB MOBILE DESIGNER
--- OUTSIDE RECORDS SUMMARY | 2024-09-22 13:43 | XMS_ITS | Patient Health Record ---
Author Organization [facility] Address [address] [facility] [address] [place], [place] [address] Care Team Providers Care Practice Business Asst Name Role Phone KYLEE GARCIA Unavailable [phone] Answer, Declined Unavailable Unavailable SNOOK, MARIO Unavailable [phone] Allergies Allergen (clinical drug ingredient) Drug/Non Drug Allergy documented on EMR Reaction Allergy Type Onset Date Status Anti-Inflammatory Enzyme Unknown Drug Allergy Active Tape Unknown Allergy Active Reason For Referral No Information Encounters Encounter Location Date Provider Diagnosis [facility] [place] [address] [place], [place] [phone] 06/19/2024 MARIO SNOOK Plantar fascial fibromatosis M72.2 ; Unequal limb length (acquired), unspecified tibia and fibula M21.769 ; Pain in right foot M79.671 and Left foot pain M79.672 [facility] [place] [address] [place] [id number] 07/31/2024 MARIO SNOOK Plantar fascial fibromatosis M72.2 ; Unequal limb length (acquired), unspecified tibia and fibula M21.769 ; Pain in right foot M79.671 and Left foot pain M79.672 [facility] [place] [address] [place] [id number] 09/04/2024 MARIO SNOOK Plantar fascial fibromatosis M72.2 ; Unequal limb length (acquired), unspecified tibia and fibula M21.769 ; Pain in right foot M79.671 and Left foot pain M79.672 Assessments Encounter Date Diagnosis (ICD Code) Assessment Notes Treatment Notes Treatment Clinical Notes Section Notes 06/19/2024 Unequal limb length (acquired), unspecified tibia and fibula (ICD-10 - M21.769) Orthotic Recommendation: I recommended functional orthotics for the patient. 06/19/2024 Plantar fascial fibromatosis (ICD-10 - M72.2) Plantar [...] held in subtalar joint neutral position. 07/31/2024 Plantar fascial fibromatosis (ICD-10 - M72.2) Plantar Fascitis: I discussed anti-inflammato ry treatment options and various means of pronation control with the patient. I educated the patient on icing and stretching, supportive shoegear, and the use of orthotic devices. [facility] [place] [facility]/04/2024 Unequal limb length (acquired), unspecified tibia and fibula (ICD-10 - M21.769) Orthotic Dispense: The orthotic devices were dispensed and fitted. It was noted that the orthotic conformed well to the patient's foot in the subtalar joint neutral position. The patient was educated on the device's use, as well as the gradual break-in period for the device. 09/04/2024 Plantar fascial fibromatosis (ICD-10 - M72.2) [...] in right foot (ICD-10 - M79.671) 07/31/2024 Pain in right foot (ICD-10 - M79.671) 06/19/2024 Pain in right foot (ICD-10 - M79.671) 06/19/2024 Left foot pain (ICD-10 - M79.672) 07/31/2024 Left foot pain (ICD-10 - M79.672) 09/04/2024 Left foot pain (ICD-10 - M79.672) Plan Of Treatment No Information Insurance Providers Payer Name Payer Address Payer Phone Subscriber Number Group Number Insured Name Patient Relationship to Insured Coverage Start Date Coverage End Date [facility] ([facility] [address] [place], [place] [phone] [id number] LEOPOLDO BECK Self - patient is the insured
[2024-09-22 19:57] LABS: CRP 0.9 mg/dL (<1.0)
[2024-09-22 20:11] LABS: Erythrocyte Sedimentation Rate 9 mm/hr (0-20)
== END 2024-09-22 13:39 | disposition home or self-care (01) ==
LOC: ANHGOSHLAB 13:40
PROVIDERS: PCP Family Medicine
DX: M19.90 Unspecified osteoarthritis, unspecified site (principal)
CPT/HCPCS: 36415; 85652; 86140

== ENCOUNTER 2024-10-05 09:21 | Outpatient (RCR) | payer BC, SELFPAY | END 2025-01-03 23:59 | disposition home or self-care (01) | LOC: ANHDMC 09:21 | PROVIDERS: PCP Family Medicine; Visit Provider Family Medicine | DX: E11.9 Type 2 diabetes mellitus without complications (principal); Z71.89 Other specified counseling | CPT/HCPCS: G0108 ==

== ENCOUNTER 2024-11-14 17:37 | Emergency (ER) | payer BC, SELFPAY ==
--- OUTSIDE RECORDS SUMMARY | 2024-11-14 17:39 | XMS_ITS | Clinical Summary ---
Author Organization [facility] Address [address] [place] [address] Care Team Providers Care Sand System Operator Name Role Phone Unavailable Primary Care Provider Unavailabl e Allergies Active Allergy Reactions Criticality Noted Date Comments Adhesive Rash Medium 04/03/2019 Aspirin Angioedema,Swelling High 08/03/2018 Ciprofloxacin Nausea and Vomiting Low 04/03/2019 Clarithromycin Nausea and Vomiting Low 08/03/2018 Erythromycin Nausea and Vomiting Low 08/03/2018 Gluten Unknown 07/22/2020 Ibuprofen Angioedema,Swelling ,Other (See Comments) High 08/03/2018 Midazolam Other (See Comments) Low 08/03/2018 Other reaction(s): Other hallucinations hallucinations hallucinations Other reaction(s): Other hallucinations Naproxen Angioedema,Swelling High 08/03/2018 Nsaids (Non-Steroidal Anti-Inflammatory Drug) Unknown 07/22/2020 Sulfamethoxazole-Trimetho prim Unknown 06/13/2020 Tramadol Anxiety,Other (See Comments),Hallucina tion Medium 08/03/2018 Other reaction(s): Other hallucinations hallucinations hallucinations Other reaction(s): Other hallucinations Medications montelukast (SINGULAIR) 10 mg tablet Take 10 mg by mouth. 08/31/2018 Active neomycin-polymy roman-dexAMETHaso ne (MAXITROL) 3.5 mg/g-10,000 unit/g-0.1 % ointment neomycin 3.5 mg/g-polymyxi n B 10,000 unit/g-dexame th 0.1 % eye oint Active Active Problems Problem Noted Date Diagnosed Date Hernia of abdominal cavity 07/28/2022 Scoliosis 07/28/2022 Celiac disease 09/19/2018 Myalgia of pelvic floor 09/19/2018 Hematuria 09/19/2018 History of abdominoplasty 09/19/2018 Intestinal cramps 09/19/2018 Irritable bowel syndrome with diarrhea 8 Stress incontinence in female 09/19/2018 Dyschezia 09/16/2018 Dysmenorrhea 09/16/2018 Dysuria 09/16/2018 Renal stones 09/16/2018 Seasonal allergic rhinitis 03/25/2016 Immunizations Immunization Administration Dates Next Due INFLUENZA VACCINE QUADRIVALENT 3 YR UP PF IM INFLUENZA VACCINE QUADRIVALE NT 6 MOS UP CELL DERIVED PF IM 06/27/2019 Family History Medical History Relation Name Comments Cancer Maternal Grandfather Agnieszka All gra ndfathers and father have had skin cancer, mother breast Diabetes Maternal Grandfather Agnieszka Relation Name Status Comments Maternal Grandfather Agnieszka Social History Tobacco Use Types Packs/Day Years Used Date Smoking Tobacco: Never Tobacco Cessation:Counseling Given: Not Answered Comments:Never Alcohol Use Standard Drinks/Week Comments Never 0 (1 standard drink = 0.6 oz pur e alcohol) Comments No Sex and Gender Information Value Date Recorded Sex Assigned at Not on file Legal Sex Female 12:12 PM WARD NURSE Gender Identity Not on file Sexual Orientation Not on file Last Filed Vital Signs Vital Sign Reading Time Taken Comments Blood Pressure 122/76 07/28/2022 12:27 PM CDT Pulse 83 07/28/2022 12:27 PM CDT Temperature 36.1 ??C (97 ??F) 07/28/2022 12:27 PM CDT Respiratory Rate - - Oxygen Saturation 99% 07/28/2022 12:27 PM CDT Inhaled Oxygen Concentration - - Weight 112.5 kg (248 lb) 07/28/2022 12:27 PM CDT Height 165.1 cm (5' 5 ) 07/28/2022 12:27 PM CDT Body Mass Index 41.27 07/28/2022 12:27 PM CDT Plan of Treatment Health Maintenance Due Date Last Done Comments DTAP/TDAP/TD VACCINES (1 - Tdap) 1998 HEPATITIS B VACCINES (1 of 3 - 19+ 3-dose series) 1998 CERVICAL CANCER SCREENING 2009 BREAST CANCER SCREENING 07/27/2023 07/27/20, 07/30/2021, 02/24/2021, Additional history exists INFLUENZA VACCINE (#1) 2024 06/25/2020, 2018 COLORECTAL SCREENING 2024 Colorectal Cancer Screening 2024 FIT-DNA Q 3 years 2024 FIT/FOBT Q 1 year 2024 Flex Sig/CT Colonography Q 5 years 2024 COVID-19 Vaccine ( season) 2024 11/05/2021 HPV VACCINES Aged Out No longer eligi ble based on patient's age to complete this topic Insurance [facility] BLUE ACCESS/TRUE BLUE PPO
--- OUTSIDE RECORDS SUMMARY | 2024-11-14 17:39 | XMS_ITS | Referral Summary ---
Author Organization [facility] Address [address] [place] [address] Care Team Providers Care Damascener Name Role Phone Renetta Vasquez MD Primary Care Provider Un available Source Comments [facility],non-owned Affiliates and Associated Physician Practices is amultiple site organization consisting of ambulatory clinics and hospital sitesin [place], [place], [place] and [place]. This disclosure is being madepursuant to the Care Everywhere program and may not contain all information available regarding this patient. Last updated 18.[facility] Encounters Date Type Department Care Team Description 09/05/2024 Lab Requisition [facility] - DermPath Lab [address] [place] [id number] Carla Mcdaniels DO from Last 3 Months Allergies Active Allergy Reactions Criticality Noted Date Comments Adhesive Sensitivity Rash Medium 04/03/2019 Ibuprofen Swelling 08/03/2018 Naproxen Swelling 08/03/2018 Aspirin Swelling 08/03/2018 Clarithromycin Nausea and/or Vomiting 8 Ciprofloxacin Vomiting 04/03/2019 Erythromycin Nausea and/or Vomiting 08/03/2018 Tramadol Other 08/03/2018 hallucinations Midazolam Other 08/03/2018 hallucinations Medications * Be aware that medications may not be up to date on this document. Alwaysverify current medications with the patient. Medication Sig Dispensed Refills Start Date End Date Status montelukast (SINGULAIR) 10 MG tablet Take 10 mg by mouth every 30 days 08/31/2018 Active Acetaminophen (TYLENOL PO) Active Cholecalciferol (VITAMIN D3) 70737 units capsule 03/09/2019 Active sertraline (ZOLOFT) 50 MG tablet 02/11/2019 Active Active Problems Problem Noted Date Diagnosed Date Stress incontinence in female 09/19/2018 H/O hernia repair 09/19/2018 Irritable bowel syndrome with diarrhea 8 Intestinal cramps 09/19/2018 Hematuria 09/19/2018 Myalgia of pelvic floor 09/19/2018 Celiac disease 09/19/2018 Dysuria 09/19/2018 Renal stones 09/19/2018 Chronic pelvic pain in female 09/16/2018 Dyschezia 09/16/2018 Dysuria 09/16/2018 Dysmenorrhea 09/16/2018 Renal stones 09/16/2018 Seasonal allergic rhinitis 03/25/2016 Resolved Problems Problem Noted Date Diagnosed Date Resolved Date Diarrhea 09/19/2018 10/17/2018 Immunizations Name Administration Dates Next Due INFLUENZA VACCINE, CELL CULT URE, QUADR. (FLUCELVAX QUADRIVALENT; 6MO+) (CCIIV4) 06/27/2019 INFLUENZA VACCINE, QUADR. (F LUZONE; FLULAVAL; FLUARIX; AFLURIA QUADRIVALENT; 6MO+), 0.5 ML (IIV4) 09/27/2023 Social History Tobacco Use Types Packs/Day Years Used Date Smoking Tobacco: Never Smokeless Tobacco: Never Alcohol Use Standard Drinks/Week Comments Yes 0 (1 standard drink = 0.6 oz pur e alcohol) rarely Sex and Gender Information Value Date Recorded Sex Assigned at Not on file Gender Identity Not on file Sexual Orientation Not on file Last Filed Vital Signs Vital Sign Reading Time Taken Comments Blood Pressure 114/78 12/19/2019 4:00 PM CDT Pulse 72 04/03/2019 1:10 PM CDT Temperature 36.6 ??C (97.8 ??F) 09/19/2018 1:50 PM CS T Respiratory Rate 21 04/03/2019 1:10 PM CDT Oxygen Saturation 95% 04/03/2019 1:10 PM CDT Inhaled Oxygen Concentration - - Weight 104.8 kg (231 lb) 12/19/2019 4:00 PM CDT Height 165.1 cm (5' 5 ) 12/19/2019 4:00 PM CDT Body Mass Index 38.44 12/19/2019 4:00 PM CDT Plan of Treatment Not on file Procedures Procedure Name Priority Date/Time Associated Diagnosis Comments DERMATOPATHOLOGY Routine 09/05/2024 8:13 AM REAL ESTATE ASSESSOR ENDOSCOPY, COLON, DIAGNOSTIC Routine 04/03/2019 11:38 AM CDT Chronic diarrhea from Last 3 Months or Most Recently Relevant to Health Maintenance Results * DERMATOPATHOLOGY (09/05/2024 8:13 AM REAL ESTATE ASSESSOR) Case Report Dermatopathology Report ? Case: [id number] ? Authorizing Provider: ??Carla Mcdaniels, DO ?? Collected: ? 09/05/2024 08:13 AM ? [facility] ? [facility] ??Received: ?09/05/2024 12:38 PM ? DermPath Lab ? Pathologist: ? Lelo Reid MD ? Specimen: ?Skin, left chin ? 4 11:11 AM REAL ESTATE ASSESSOR DERMATOPATHOLOGY LABORATORY Final Diagnosis Specimen A. SKIN, left chin: BENIGN VERRUCOUS KERATOSIS (L82.1) (see microscopic description and comment) 4 11:11 AM [facility] DERMATOPATHOLOGY LABORATORY Clinical History R/O NMSC 4 11:11 AM [facility] DERMATOPATHOLOGY LABORATORY Gross Description Specimen A: Received is one formalin filled container labeled with the patient's name and designated left chin. The specimen consists of a shave biopsy measuring 3x3x1 mm. Jar 0. 11:11 AM [facility] DERMATOPATHOLOGY LABORATORY Microscopic Description Specimen A. SKIN, left chin: Sections show hyperkeratosis, papillomatosis, hypergranulosis, and acanthosis. These histological findings can be seen in a verruca vulgaris or a seborrheic keratosis. Additional deeper sections were obtained and reviewed. COMMENT: Given the superficial nature of the biopsy specimen, a deeper dermal process cannot be excluded. 11:11 AM [facility] DERMATOPATHOLOGY LABORATORY Disclaimer An external and internal positive and negative controls are appropriate for the histochemical, immunohistochemical and immunofluorescence stain(s) in this case (if any), except where stated explicitly. The performance characteristics of the stain(s) cited in this report were developed and its performance characteristic determined by the Dermatopathology Laboratory at [facility], directed by Dr. Kelly Crane. These tests need not be, and therefore are not, approved by the [place] Food and Drug Administration. The tests are used for clinical purposes. Billing Codes Specimen Charges Stain Charges 48236 1 4 11:11 AM [facility] DERMATOPATHOLOGY LABORATORY Embedded Images 11:11 AM [facility] DERMATOPATHOLOGY LABORATORY Pathology/Cytolo gy TISSUE SPECIMEN FROM SKIN / Unknown 09/05/2024 8:13 AM REAL ESTATE ASSESSOR 09/05/2024 12:38 PM REAL ESTATE ASSESSOR Carla Mcdaniels DO LAB - PATHOLOGY/C YTOLOGY ORDERABLES DERMATOPATHOLOGY LABORATORY [facility] - Department of Dermatology [address], [address] [phone] * ENDOSCOPY, COLON, DIAGNOSTIC (04/03/2019 11:38 AM CDT) Report Endoscopy POC _ Patient Name: Leopoldo Beck ? Procedure Date: 04/03/2019 11:38 AM ? Date of : 1980 ?Admit Type: Outpatient Age: 38 ? Gender: Female Ethnicity: Not or ? Race: White Attending MD: Adilene Templeton MD _ Procedure: ? Colonoscopy Indications: ? Chronic diarrhea Providers: ? Adilene Templeton MD (Doctor), Elenita Gonzalez RN Referring MD: ?Michael Acharya (Referring MD) Medicines: ? Monitored Anesthesia Care Complications: ? No immediate complications. _ Procedure: ? Pre-Anesthesia Assessment: ? - Prior to the procedure, a History and Physical was ? performed, and patient medications and allergies were ? reviewed. The patient's tolerance of previous anesthesia ? was also reviewed. The risks and benefits of the procedure ? and the sedation options and risks were discussed with the ? patient. All questions were answered, and informed consent ? was obtained. Prior Anticoagulants: The patient has taken ? no previous anticoagulant or antiplatelet agents. ASA ? Grade Assessment: II - A patient with mild systemic ? disease. After reviewing the risks and benefits, the ? patient was deemed in satisfactory condition to undergo ? the procedure. ? After I obtained informed consent, the scope was passed ? under direct vision. Throughout the procedure, the ? patient's blood pressure, pulse, and oxygen saturations ? were monitored continuously. The Colonoscope was ? introduced through the anus and advanced to the terminal ? ileum, with identification of the appendiceal orifice and ? IC valve. The terminal ileum, ileocecal valve, appendiceal ? orifice, and rectum were photographed. The quality of the ? bowel preparation was evaluated using the BBPS ([place] ? Bowel Preparation Scale) with scores of: Right Colon = 3, ? Transverse Colon = 3 and Left Colon = 3 (entire mucosa ? seen well with no residual staining, small fragments of ? stool or opaque liquid). The total BBPS score equals 9. ? Impression: ?- The examined portion of the ileum was normal. ? - The entire examined colon is normal. Biopsied. Findings: ? The perianal and digital rectal examinations were normal. ? The terminal ileum appeared normal. ? The colon (entire examined portion) appeared normal. Biopsies for ? histology were taken with a cold forceps from the entire colon for ? evaluation of microscopic colitis. _ Recommendation: ?- Patient has a contact number available for emergencies. ? The signs and symptoms of potential delayed complications ? were discussed with the patient. Return to normal ? activities tomorrow. Written discharge instructions were ? provided to the patient. ? - Resume previous diet. ? - Continue present medications. ? - Await pathology results. ? - Repeat colonoscopy at age 49 for screening purposes. ? - Return to GI clinic as previously scheduled. ? Procedure Code(s): ? --- Professional --- ? 71190, Colonoscopy, flexible; with biopsy, single or multiple ? --- Technical --- ? 23680, Colonoscopy, flexible; with biopsy, single or multiple Diagnosis Code(s): ? --- Professional --- ? K52.9, Noninfective gastroenteritis and colitis, unspecified ? --- Technical --- ? K52.9, Noninfective gastroenteritis and colitis, unspecified CPT copyright 2017 [employer]. All rights reserved. The codes documented in this report are preliminary and upon risk control specialist review may be revised to meet current compliance requirements. Adilene Templeton MD Adilene Templeton MD 04/03/2019 12:54:48 PM Number of Addenda: 0 Note Initiated On: 04/03/2019 11:38 AM [facility] 04/03/2019 11:3 8 AM CDT Adilene Templeton MD GI PROCEDURE DAMIEN BOOTH [facility] ENDOSCOPY from Last 3 Months or Most Recently Relevant to Health Maintenance Care Teams Damascener Relationship Specialty Start Date End Date Renetta Vasquez MD [address] [id number] PCP - General 12/29/19
--- OUTSIDE RECORDS SUMMARY | 2024-11-14 17:39 | XMS_ITS | Data Portability ---
Author Organization [facility] Address [address] [place] [address] [place] [address] Care Team Providers Care Lotus Notes Developer Name Role Phone DANIELA SPRING Primary Care Provider Assessment No assessment recorded. Plan of Treatment Reminders Order Date Submit Date Provider Last Modified By Organization Details Last Modified Time Details Appointments None recorded. Lab urinalysis, dipstick 2022 023 [facility], [address], [address], [place], [address], 3 15:25:08 urinalysis, dipstick 2022 023 [email or web address] [facility], [address], [place], [address], 3 15:59:34 urinalysis, dipstick 2022 023 [email or web address] 1 [facility], [address], [place], [address], 3 12:38:23 culture, urine 2022 023 [facility] (Lab), [address], [place], [address], 3 06:50:27 Referral None recorded. Procedures None recorded. Surgeries None recorded. Imaging US, pelvis, complete 2022 023 [facility] Scheduling, [address], [place], [address], 4 12:46:08 US, pelvis 2022 023 [email or web address] [facility], [address], [place], [address], 3 19:06:01 US, transvagina l 2022 023 [email or web address] [facility], [address], [address], [place], [address], 3 19:06:01 Medication Orders Macrobid 100 mg capsule 2022 023 [email or web address] [id number], [address], [place], [place], [id number], 5 09:26:08 Patient TargetsNo targets recorded. Patient InstructionsNo instructions recorded. Reason for Referral None Reported. Results Created Date Observation Date Name Description Value Unit Range Abnormal Flag Note LastModifiedBy Organization Detail LastModifiedTime 04/28/2004/28/2023 URINA LYSIS , WITH MICRO SCOPI C, REFLE X CULTU RE color, urine Light Yellow Not Available [facility] (Lab) [address], [place], [address], 04/30/2023 11:55:44 04/28/20 23 04/28/2023 URINA LYSIS , WITH MICRO SCOPI C, REFLE X CULTU RE clarity, urine Turbid abnormal Not Available [facility] (Lab) [address], [place], [address], 04/30/2023 11:55:44 04/28/20 23 04/28/2023 URINA LYSIS , WITH MICRO SCOPI C, REFLE X CULTU RE specific gravity, urine 1.025 . 1.005- 1.035 Not Available [facility] (Lab) [address], [place], [address], 04/30/2023 11:55:44 04/28/20 23 04/28/2023 URINA LYSIS , WITH MICRO SCOPI C, REFLE X CULTU RE pH, urine 5.5 . 5.0-7. 0 Not Available [facility] (Lab) [address], [place], [address], 04/30/2023 11:55:44 04/28/20 23 04/28/2023 URINA LYSIS , WITH MICRO SCOPI C, REFLE X CULTU RE protein, UA Negati ve mg/dL negati ve, - Not Available [facility] (Lab) [address], [place], [address], 04/30/2023 11:55:44 04/28/20 23 04/28/2023 URINA LYSIS , WITH MICRO SCOPI C, REFLE X CULTU RE glucose, urine Normal mg/dL negati ve Not Available [facility] (Lab) [address], [place], [address], 04/30/2023 11:55:44 04/28/20 23 04/28/2023 URINA LYSIS , WITH MICRO SCOPI C, REFLE X CULTU RE ketones, urine Negati ve mg/dL negati ve Not Available [facility] (Lab) [address] [place], [address], 04/30/2023 11:55:44 04/28/20 23 04/28/2023 URINA LYSIS , WITH MICRO SCOPI C, REFLE X CULTU RE bilirubin, urine Negati ve negati ve Not Available [facility] (Lab) [address] [place], [address], 04/30/2023 11:55:44 04/28/20 23 04/28/2023 URINA LYSIS , WITH MICRO SCOPI C, REFLE X CULTU RE blood, urine Negati ve negati ve Not Available [facility] (Lab) [address] [facility] [place], [address], 04/30/2023 11:55:44 04/28/20 23 04/28/2023 URINA LYSIS , WITH MICRO SCOPI C, REFLE X CULTU RE nitrite, urine Negati ve negati ve Not Available [facility] (Lab) [address], [place], [address], 04/30/2023 11:55:44 04/28/20 23 04/28/2023 URINA LYSIS , WITH MICRO SCOPI C, REFLE X CULTU RE leukocyte esterase, urine 75 say/u L negati ve abnormal Not Available [facility] (Lab) [address], [place], [address], 04/30/2023 11:55:44 04/28/20 23 04/28/2023 URINA LYSIS , WITH MICRO SCOPI C, REFLE X CULTU RE urobilinogen , urine Normal mg/dL normal , <2.0 Not Available [facility] (Lab) [address], [place], [address], 04/30/2023 11:55:44 04/28/20 23 04/28/2023 URINA LYSIS , WITH MICRO SCOPI C, REFLE X CULTU RE RBC, urine 0-2 /hpf none, 0-2 Not Available [facility] (Lab) [address], [place], [address], 04/30/2023 11:55:44 04/28/20 23 04/28/2023 URINA LYSIS , WITH MICRO SCOPI C, REFLE X CULTU RE WBC, urine 6-9 /hpf none, 0-5 abnormal Not Available [facility] (Lab) [address], [place], [address], 04/30/2023 11:55:44 04/28/20 23 04/28/2023 URINA LYSIS , WITH MICRO SCOPI C, REFLE X CULTU RE squamous epithelial cells, urine Modera te /hpf none abnormal Not Available [facility] (Lab) [address], [place], [address], 04/30/2023 11:55:44 04/28/20 23 04/28/2023 URINA LYSIS , WITH MICRO SCOPI C, REFLE X CULTU RE bacteria, urine Trace /hpf none abnormal Not Available [facility] (Lab) [address], [place], [address], 04/30/2023 11:55:44 04/28/20 23 04/28/2023 URINA LYSIS , WITH MICRO SCOPI C, REFLE X CULTU RE hyaline cast, urine None /lpf none, 0-2 Not Available [facility] (Lab) [address], [place], [address], 04/30/2023 11:55:44 04/28/20 23 04/28/2023 URINA LYSIS , WITH MICRO SCOPI C, REFLE X CULTU RE mucus, urine Modera te /hpf none, trace, few abnormal Urine Cultu re to follo w. Not Available [facility] (Lab) [address], [place], [address], 04/30/2023 11:55:44 04/28/20 23 04/28/2023 CULTU RE: URINE result report SEE RESULT S BELOW Test: Cultu re: Urine Speci men Type: Urine Speci men Date: 2022 4:34 PM Resul t Date: 2022 10:51 AM Resul t Statu s: Final resul t Abnor mal: No Resul ting Lab: [facility] [address] [facility] [place] [address] Tel: [phone] CULTU RE ----- ----- ----- --- Cultu re resul t (>=3 organ isms prese nt) indic ates possi ble conta minat ion. Repea t cultu re if sympt oms indic ate. Not Available [facility] (Lab) [address], [place], [address], 04/30/2023 11:55:45 04/28/20 23 04/28/2023 urina lysis , dipst ick Leukocytes ++ Not Available [facility] [address], [place], [address], 04/28/2023 15:24:42 04/28/20 23 04/28/2023 urina lysis , dipst ick Protein trace Not Available [facility] [address], [place], [address], 04/28/2023 15:24:42 04/28/20 23 04/28/2023 urina lysis , dipst ick pH 5 Not Available [facility] [address], [place], [address], 04/28/2023 15:24:42 04/28/20 23 04/28/2023 urina lysis , dipst ick Blood + Not Available [facility] [address], [place], [address], 04/28/2023 15:24:42 04/28/20 23 04/28/2023 urina lysis , dipst ick Specific [place] 1.025 Not Available [facility] [address], [place], [address], 04/28/2023 15:24:42 05/17/20 23 05/17/2023 URINA LYSIS , WITH MICRO SCOPI C, REFLE X CULTU RE color, urine Yellow Not Available [facility] (Lab) [address] [place], [address], 05/18/2023 04:22:17 05/17/20 23 05/17/2023 URINA LYSIS , WITH MICRO SCOPI C, REFLE X CULTU RE clarity, urine Clear Not Available [facility] (Lab) [address] [place], [address], 05/18/2023 04:22:17 05/17/20 23 05/17/2023 URINA LYSIS , WITH MICRO SCOPI C, REFLE X CULTU RE specific gravity, urine 1.026 . 1.005- 1.035 Not Available [facility] (Lab) [address], [place], [address], 05/18/2023 04:22:17 05/17/20 23 05/17/2023 URINA LYSIS , WITH MICRO SCOPI C, REFLE X CULTU RE pH, urine 7.0 . 5.0-7. 0 Not Available [facility] (Lab) [address], [place], [address], 05/18/2023 04:22:17 05/17/20 23 05/17/2023 URINA LYSIS , WITH MICRO SCOPI C, REFLE X CULTU RE protein, UA 20 mg/dL negati ve, 10-20 Not Available [facility] (Lab) [address], [place], [address], 05/18/2023 04:22:17 05/17/20 23 05/17/2023 URINA LYSIS , WITH MICRO SCOPI C, REFLE X CULTU RE glucose, urine Normal mg/dL negati ve Not Available [facility] (Lab) [address], [place], [address], 05/18/2023 04:22:17 05/17/20 23 05/17/2023 URINA LYSIS , WITH MICRO SCOPI C, REFLE X CULTU RE ketones, urine Negati ve mg/dL negati ve Not Available [facility] (Lab) [address], [place], [address], 05/18/2023 04:22:17 05/17/20 23 05/17/2023 URINA LYSIS , WITH MICRO SCOPI C, REFLE X CULTU RE bilirubin, urine Negati ve negati ve Not Available [facility] (Lab) [address], [place], [address], 05/18/2023 04:22:17 05/17/20 23 05/17/2023 URINA LYSIS , WITH MICRO SCOPI C, REFLE X CULTU RE blood, urine Negati ve negati ve Not Available [facility] (Lab) [address], [place], [address], 05/18/2023 04:22:17 05/17/20 23 05/17/2023 URINA LYSIS , WITH MICRO SCOPI C, REFLE X CULTU RE nitrite, urine Negati ve negati ve Not Available [facility] (Lab) [address], [place], [address], 05/18/2023 04:22:17 05/17/20 23 05/17/2023 URINA LYSIS , WITH MICRO SCOPI C, REFLE X CULTU RE leukocyte esterase, urine Negati ve say/u L negati ve Not Available [facility] (Lab) [address], [place], [address], 05/18/2023 04:22:17 05/17/20 23 05/17/2023 URINA LYSIS , WITH MICRO SCOPI C, REFLE X CULTU RE urobilinogen , urine Normal mg/dL normal , <2.0 Not Available [facility] (Lab) [address], [place], [address], 05/18/2023 04:22:17 05/17/20 23 05/17/2023 URINA LYSIS , WITH MICRO SCOPI C, REFLE X CULTU RE RBC, urine 0-2 /hpf none, 0-2 Not Available [facility] (Lab) [address], [place], [address], 05/18/2023 04:22:17 05/17/20 23 05/17/2023 URINA LYSIS , WITH MICRO SCOPI C, REFLE X CULTU RE WBC, urine 0-5 /hpf none, 0-5 Not Available [facility] (Lab) [address], [place], [address], 05/18/2023 04:22:17 05/17/20 23 05/17/2023 URINA LYSIS , WITH MICRO SCOPI C, REFLE X CULTU RE squamous epithelial cells, urine Few /hpf none abnormal Not Available [facility] (Lab) [address], [place], [address], 05/18/2023 04:22:17 05/17/20 23 05/17/2023 URINA LYSIS , WITH MICRO SCOPI C, REFLE X CULTU RE bacteria, urine Trace /hpf none abnormal Not Available [facility] (Lab) [address], [place], [address], 05/18/2023 04:22:17 05/17/20 23 05/17/2023 URINA LYSIS , WITH MICRO SCOPI C, REFLE X CULTU RE hyaline cast, urine None /lpf none, 0-2 Not Available [facility] (Lab) [address], [place], [address], 05/18/2023 04:22:17 05/17/20 23 05/17/2023 URINA LYSIS , WITH MICRO SCOPI C, REFLE X CULTU RE mucus, urine Many /hpf none, trace, few abnormal Urine Cultu re not perfo rmed per refle x prosper col. Not Available [facility] (Lab) [address], [place], [address], 05/18/2023 04:22:17 05/17/20 23 05/17/2023 urina lysis , dipst ick Leukocytes trace Not Available [facility] [address], [place], [address], 05/17/2023 15:58:59 05/17/20 23 05/17/2023 urina lysis , dipst ick Nitrite negati ve Not Available [facility] [address], [place], [address], 05/17/2023 15:58:59 05/17/20 23 05/17/2023 urina lysis , dipst ick Protein trace Not Available [facility] [address], [place], [address], 05/17/2023 15:58:59 05/17/20 23 05/17/2023 urina lysis , dipst ick Blood trace Not Available [facility] [address], [place], [address], 05/17/2023 15:58:59 05/17/20 23 05/17/2023 urina lysis , dipst ick Specific [place] 1.020 Not Available [facility] [address], [place], [address], 05/17/2023 15:58:59 05/17/20 23 05/17/2023 urina lysis , dipst ick Glucose normal Not Available [facility] [address], [place], [address], 05/17/2023 15:58:59 09/11/20 23 09/11/2023 urina lysis , dipst ick Leukocytes +2 Not Available [facility] [address], [place], [address], 09/11/2023 12:37:23 09/11/20 23 09/11/2023 urina lysis , dipst ick Nitrite normal Not Available [facility] [address], [place], [address], 09/11/2023 12:37:23 09/11/20 23 09/11/2023 urina lysis , dipst ick Urobilinogen normal Not Available [facility] [address], [place], [address], 09/11/2023 12:37:23 09/11/20 23 09/11/2023 urina lysis , dipst ick Protein trace Not Available [facility] [address], [place], [address], 09/11/2023 12:37:23 09/11/20 23 09/11/2023 urina lysis , dipst ick pH 7 Not Available [facility] [address], [place], [address], 09/11/2023 12:37:23 09/11/20 23 09/11/2023 urina lysis , dipst ick Specific [place] 1.015 Not Available [facility] [address], [place], [address], 09/11/2023 12:37:23 09/11/20 23 09/11/2023 urina lysis , dipst ick Ketone normal Not Available [facility] [address], [place], [address], 09/11/2023 12:37:23 09/11/20 23 09/11/2023 urina lysis , dipst ick Bilirubin normal Not Available [facility] [address], [place], [address], 09/11/2023 12:37:23 09/11/20 23 09/11/2023 urina lysis , dipst ick Glucose normal Not Available [facility] [address], [place], [address], 09/11/2023 12:37:23 09/11/20 23 09/11/2023 urina lysis , dipst ick Appearance normal Not Available [facility] [address], [place], [address], 09/11/2023 12:37:23 09/11/20 23 09/11/2023 urina lysis , dipst ick Color normal Not Available [facility] [address], [place], [address], 09/11/2023 12:37:23 09/13/20 23 09/13/2023 CULTU RE: URINE result report SEE RESULT S BELOW Test: Cultu re: Urine Speci men Sourc e: Urine Voide d Speci men Type: Urine Speci men Date: 2022 3:45 PM Resul t Date: 2022 5:45 AM Resul t Statu s: Final resul t Abnor mal: No Resul ting Lab: [facility] [address] [facility] [place] [address] Tel: CULTU RE ----- ----- ----- --- No growt h in 1 day (dete ction level of 10,00 0 colon ies / ml.) Not Available [facility] (Lab) [address], [place], [address], 09/15/2023 06:50:26 09/20/20 23 09/20/2023 US, pelvi s No observ ation record ed. [email or web address], [place], [address], 09/20/2023 18:13:11 09/20/20 23 09/20/2023 US, trans jesu al No observ ation record ed. [email or web address], [place], [address], 09/20/2023 18:13:03 09/20/20 23 09/20/2023 US, pelvi s No observ ation record ed. LISA Sykes [address] [facility], [place], [address], 09/28/2023 12:51:11 Result Notes None recorded. Problems Name Problem SNOMED Code Status Onset Date Resolution Date Notes Provider Name and Address Organization Details Recorded Time Endometr iosis (clinica l) 542066844 Completed 201707/21/2021 Endometr iosis;Re corded Elsewher e: No Locat ion: [facility] S ource: EHR Subsorter trevor: N Practi ce ID: [id number] Dejon lable Time: 04:00:00 PM Diane rodriguez [facility] 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 15:18:51 Deep pain on intercou rse [id number] Completed 201707/21/2021 Deep dyspareu mirna;Prac mariam ID: 0001 Diane rodriguez [facility] 15:18:40 Pelvic and perineal pain [id number] Completed 201707/21/2021 Pelvic and perineal pain;Pra ctice ID: 0001 Diane rodriguez [facility] 15:18:47 Urinary tract infectio us disease [id number] Completed 201707/21/2021 Urinary tract infectio n, site not specifie d;Practi ce ID: 0001 Diane rodriguez [facility] 15:18:53 Asymptom at microsco pic hematuri a [id number] Completed 201707[facility]21[facility];Practi ce ID: 0001 Diane rodriguez [facility] 15:18:39 Pregnanc y test negative [id number] Completed 201707/21/2021 Encounte r for pregnanc y test, result negative ;Practic e ID: 0001 Diane rodriguez [facility] 15:18:48 Blood leukocyt e number above referenc e range [id number] Completed 201907/21/2021 Elevated white blood cell count, unspecif ied;Prac mariam ID: 0001 Diane rodriguez [facility] 15:18:45 History of urinary stone [id number] Completed 201907/21/2021 Personal history of urinary calculi; Practice ID: 0001 Dianeaimee Richardson [facility] 15:18:[address] Concept Completed 201707/21/2021 Encntr for general adult medical exam w/o abnormal findings ;Recorde d Elsewher e: No Locat ion: Jose Elias claros [facility] S ource: EHR Subsorter trevor: N Practi ce ID: [id number] Dejon lable Time: 08:30:00 AM Diane Richardson [facility] 15:18:50 Problem Notes None recorded. Procedures Surgical History Date Name Laterality Status Provider Name and Address Organization Details Recorded Time 10/26/19 25 Date of Last Mammogram completed ABDULKADIR Jacob [facility] 11/09/2024 09:39:57 07/17/20 20 Date of Last Pap Smear completed Diane Richardson [facility] 07/21/2021 15:21:10 10/11/19 20 biopsy of breast completed Anabelle Craig [facility] 09/11/2023 13:34:33 05/11/20 18 Date of Last Colonoscopy completed Fabiola Blount [facility] 04/28/2023 15:22:35 10/11/19 18 lithotripsy completed Anabelle Craig [facility] 09/11/2023 13:32:07 10/11/19 17 biopsy of breast completed Anabelle Craig [facility] 09/11/2023 13:34:51 10/11/19 12 [facility] 09/11/2023 13:35:07 10/11/19 12 Abdominoplasty completed Anabellemena Craig [facility] 09/11/2023 13:30:10 01/01/20 11 Endometrial Ablation completed [facility] 09/11/2023 13:33:58 10/11/19 10 lithotripsy completed [facility] 09/11/2023 13:33:25 10/11/19 09 Hernia repair w/mesh completed [facility] 09/11/2023 13:30:17 08/09/20 08 section completed [facility] 09/11/2023 13:32:37 08/18/20 06 section completed [facility] 09/11/2023 13:32:29 10/11/19 05 Laparoscopy completed [facility] 09/11/2023 13:35:38 10/11/18 95 lumbar spinal fusion completed [facility] 09/11/2023 13:31:56 Endometrial Ablation completed [facility] 11/09/2024 09:35:06 Laparoscopy completed [facility] 11/09/2024 09:35:06 Abdominoplasty completed [facility] 11/09/2024 09:35:06 Breast Biopsy completed [facility] 11/09/2024 09:35:06 Imaging Results Imaging Date Name Status LastModified by Organization Details LastModified Time 09/20/2023 US, pelvis completed breana Becerra [address], [place], [address], 09/20/2023 18:13:11 09/20/2023 US, transvaginal completed [email or web address] Jose Elias claros [address], [place], [address], 09/20/2023 18:13:03 09/20/2023 US, pelvis completed LISA Mony [address], [place], [address], 09/28/2023 12:51:11 Procedure Notes None recorded. Medical Equipment None Reported. Allergies Allergen ID Allergen Name Allergen Category Reaction Reaction Severity Criticality Documentation Date Start Date Code Code System Note Provider Name and Address Organization Details Recorded Time 76627 ciproflox acin medicatio n diarrhea Not available Not available 09/27/2020 2551 [facility] 16:02:14 2005 Non-stero idal anti-infl ammatory agent (product) medicatio n Not available Not available Not available 06/21/2020 77069 005 SNOMED FACE SWELL ANGEL De La Cruz [facility] 3 16:02:30 2291 aspirin medicatio n Not available Not available Not available 07/17/2020 1191 RxNorm FACE SWELL ANGEL De La Cruz [facility] 3 16:02:24 2292 Cipro medicatio n Not available Not available Not available 07/17/2020 57931 3 RxNorm Diane Richardson [facility] 1 16:42:24 2293 clarithro mycin medicatio n Not available Not available Not available 07/17/2020 80429 RxNorm Estefany Hawk [facility], [facility] 0 09:43:54 2294 erythromy cinthia medicatio n vomiting Not available Not available 07/17/2020 4053 RxNorm Estefany Hawk michael, [facility] 0 09:44:00 2295 wheat gluten extract food Not available Not available Not available 07/17/2020 89372 81 RxNorm Estefany Hawk michael, [facility] 0 09:44:06 2296 ibuprofen medicatio n Not available Not available Not available 07/17/2020 5640 RxNorm Estefany Hawk [facility], [facility] 0 09:44:11 2297 midazolam medicatio n Not available Not available Not available 07/17/2020 6960 RxNorm Estefany Hawk [facility], [facility] 0 09:44:20 2298 naproxen medicatio n Not available Not available Not available 07/17/2020 7258 RxNorm Estefany Hawk [facility], [facility] 0 09:44:25 2299 tramadol medicatio n hallucina tions Not available Not available 07/17/2020 57575 RxNorm Smitha De La Cruz [facility], [facility] 3 16:01:37 55959 Biaxin medicatio n Not available Not available Not available 09/11/202321273 9 RxNorm Anabelle Craig [facility], [facility] 3 13:37:34 Medications Name Sig Start [...] e: No Locat ion: Jose Elias claros [facility] M odify By: deloris manning DateTime : 06/24/20 18 09:53:23 AM Not Available Not Available Not Available azithromy cinthia 250 mg tablet TAKE 2 TABLETS BY MOUTH DAY 1 THEN 1 TABLET DAILY UNTIL ALL TAKEN 11/09 completed Not Available Not Available Not Available Lidocaine Viscous 2 % mucosal solution 06/21 completed Not Available Not Available Not Available fluconazo le 150 mg tablet TAKE 1 TABLET BY MOUTH EVERY 72 HOURS active Not Available Not Available No t Available benzonata te 200 mg capsule TAKE 1 CAPSULE BY MOUTH THREE TIMES DAILY NEEDED FOR COUGH active Not Available Not Available No t Available valacyclo vir 1 gram tablet TAKE 1 TABLET BY MOUTH THREE TIMES DAILY active Not Available Not Available No t Available hydrocodo ne 5 mg-acetam inophen 325 mg tablet TAKE 1 TABLET BY MOUTH EVERY 6 HOURS NEEDED FOR PAIN 09/11 completed Not Available Not Available Not Available Claritin 10 mg tablet take 1 tablet by oral route every day 2016 active Prescrib ed Elsewher e: Yes [facility] By: jocelyn Encounte r DateTime [...] Elsewher e: Yes Loca tion: Jose Elias [facility] odify By: jocelyn Encounte r DateTime : 03/25/20 16 10:00:00 AM Not Available Not Available Not Available ciproflox acin 500 mg tablet take 1 tablet by oral route every 12 hours 07/08 completed Prescrib ed Elsewher e: No Locat ion: [facility] odify By: deloris manning DateTime : 07/07/20 18 04:00:00 PM Not Available Not Available Not Available amoxicill in 875 mg tablet TAKE 1 TABLET BY MOUTH EVERY 12 HOURS FOR 10 DAYS 11/09 completed Not Available Not Available Not Available OneTouch Ultra Test strips USE TO TEST DAILY active Not Available Not Available No t Available phenazopy ridine 100 mg tablet TAKE 1 TABLET BY MOUTH THREE TIMES DAILY FOR 7 DAYS 04/28 completed Not Available Not Available Not Available baclofen 10 mg tablet 06/21 completed Not Available Not Available Not Available doxycycli ne monohydra te 100 mg capsule TAKE 1 CAPSULE BY MOUTH TWICE DAILY 11/09 completed Not Available Not Available Not Available hydrocodo ne 7.5 mg-acetam inophen 325 mg tablet TAKE 1 TABLET BY MOUTH EVERY 6 HOURS 09/11 completed Not Available Not Available Not Available cephalexi n 500 mg capsule TAKE 1 CAPSULE BY MOUTH EVERY 12 HOURS 09/11 completed Not Available Not Available Not Available prednison e 50 mg tablet TAKE 1 TABLET BY MOUTH DAILY FOR 5 DAYS active Not Available Not Available No t Available triamcino lone acetonide 55 mcg nasal spray aerosol USE 2 SPRAYS IN EACH NOSTRIL DAILY 04/28 completed Not Available Not Available Not Available gabapenti n 300 mg capsule TAKE 1 CAPSULE BY MOUTH EVERY 8 HOURS FOR 10 DAYS active Not Available Not Available No t Available codeine 10 mg-guaife nesin 100 mg/5 mL oral liquid TAKE 7.5 ML BY MOUTH EVERY 6 HOURS NEEDED FOR COUGH 04/28 completed Not Available Not Available Not Available gabapenti n 100 mg capsule TAKE 1 CAPSULE BY MOUTH THREE TIMES DAILY active Not Available Not Available No t Available ergocalci ferol (vitamin D2) 1,250 mcg (50,000 unit) capsule 06/21 completed Not Available Not Available Not Available azelastin e 137 mcg (0.1 %) nasal spray INHALE 1 SPRAY INTO EACH NOSTRIL EVERY 12 HOURS 04/28 completed Not Available Not Available Not Available triamcino lone acetonide 0.1 % lotion APPLY A SMALL AMOUNT TO SCALP AND EARS TWICE DAILY NEEDED active Not Available Not Available No t Available methylpre dnisolone 4 mg tablets in a dose pack FOLLOW PACKAGE DIRECTIO NS active Not Available Not Available No t Available albuterol sulfate HFA 90 mcg/actua tion [...] Not Available Not Available No t Available metformin ER 500 mg tablet,ex tended release 24 hr TAKE 1 TABLET BY MOUTH TWICE DAILY active Not Available Not Available No t Available neomycin 3.5 mg/g-poly myxin B 10,000 unit/g-de xameth 0.1 % eye oint APPLY TO AFFECTED LID OF RIGHT EYE THREE TIMES DAILY FOR 1 WEEK 04/28 completed Not Available Not Available Not Available Bactrim DS 800 mg-160 mg tablet take 1 tablet by oral route every 12 hours 05/23 completed Prescrib ed Elsewher e: No Locat ion: [facility] odify By: [email or web address] Encount er DateTime : 07/08/20 18 01:50:33 PM Not Available Not Available Not Available moxifloxa cinthia 0.5 % eye drops INSTILL 1 DROP IN LEFT EYE FOUR TIMES DAILY. 04/28 completed Not Available Not Available Not Available rosuvasta tin 10 mg tablet active Not Available Not Available Not Available rosuvasta tin 20 mg tablet TAKE 1 TABLET BY MOUTH EVERY EVENING active Not Available Not Available No t Available escitalop jak 5 mg tablet active Not Available Not Available Not Available nitrofura ntoin monohydra te/macroc rystals 100 mg capsule TAKE 1 CAPSULE BY MOUTH EVERY 12 HOURS FOR 5 DAYS 11/09 completed Not Available Not Available Not Available Co Q-10 200 mg capsule TAKE 1 CAPSULE BY MOUTH DAILY active Not Available Not Available No t Available Tylenol 07/17 completed Not Available Not Available Not Available Zyrtec 07/17 completed Not Available Not Available Not Available Seasoniqu e 0.15 mg-30 mcg (84)/10 mcg(7) tablets,3 month dose pack take 1 tablet by oral route every day 06/27 completed Prescrib ed Elsewher e: No Locat ion: [facility] odify By: deloris manning DateTime : 06/27/20 18 10:38:40 AM Not Available Not Available Not Available Quasense 0.15 mg-30 mcg (91) tablets,3 month dose pack take 1 tablet by oral route every day 06/27 completed Prescrib ed Elsewher e: No Locat ion: [facility] odify By: deloris manning DateTime : 06/20/20 18 01:00:00 PM Not Available Not Available Not Available Pataday 0.2 % eye drops instill 1 drop by ophthalm ic route every day into affected eye(s) active Prescrib ed Elsewher e: Yes Loca tion: [facility] odify By: britni manning DateTime : 07/07/20 18 04:00:00 PM Not Available Not Available Not Available cholecalc iferol (vitamin D3) 1,250 mcg (50,000 unit) capsule TAKE 1 CAPSULE BY MOUTH ONCE A WEEK active Not Available Not Available No t Available Jardiance 25 mg tablet TAKE 1 TABLET BY MOUTH EVERY MORNING active Not Available Not Available No t Available Xiidra 5 % eye drops in a dropperet te INSTILL 1 DROP IN BOTH EYES TWICE DAILY 04/28 completed Not Available Not Available Not Available Tylenol 325 mg capsule active Prescrib ed Elsewher e: Yes Loca tion: [facility] odify By: britni z Diaz manning DateTime : 07/07/20 18 04:00:00 PM Not Available Not Available Not Available OneTouch Ultra2 Meter USE TO TEST DAILY active Not Available Not Available No t Available OneTouch Delica Plus Lancet 33 gauge USE TO TEST DAILY active Not Available Not Available No t Available Flucelvax Quad (PF) 60 mcg (15 mcg x 4)/0.5 mL IM syringe 06/21 completed Not Available Not Available Not Available Pataday Twice Daily Relief 0.1 % eye drops INSTILL 1 DROP INTO AFFECTED EYE(S) BY OPHTHALM IC ROUTE 2 TIMES PER DAY AT AN INTERVAL OF 6 TO 8 HOURS 07/17 completed Not Available Not Available Not Available Ozempic 0.25 mg or 0.5 mg (2 mg/3 mL) subcutane ous pen injector active Not Available Not Available Not Available Vitals Date Recorded Body height Body mass index (BMI) Body weight Provider Name and Address Organization Details Last Updated DateTime 04/28/2023 165.1 cm 42.4 kg/m2 505411.05 g Fabiola Jose Alejandro [facility] 04/28/2023 15:22:17 Date Recorded Systolic blood pressure Diastolic blood pressure Provider Name and Address Organization Details Last Updated DateTime 04/28/2023 122 mm[Hg] 80 mm[Hg] Hannah Sharma, [facility]- [address], [place], [address], [facility] 04/28/2023 15:37:39 Date Recorded Body height Body mass index (BMI) Body weight Systolic blood pressure Diastolic blood pressure Provider Name and Address Organization Details Last Updated DateTime 05/17/2023 165.1 cm 42.8 kg/m2 704749.2 4 g 137 mm[Hg] 85 mm[Hg] Smitha Dorothy [facility] 3 15:57:09 Date Recorded Body height Body mass index (BMI) Body weight Systolic blood pressure Diastolic blood pressure Provider Name and Address Organization Details Last Updated DateTime 09/11/2023 165.1 cm 42.4 kg/m2 235592.0 5 g 127 mm[Hg] 82 mm[Hg] Anabelle Craig [facility] 3 10:23:27 Date Recorded Body height Body mass index (BMI) Body weight Systolic blood pressure Diastolic blood pressure Provider Name and Address Organization Details Last Updated DateTime 11/09/2024 165.1 cm 43.3 kg/m2 571028.0 2 g 131 mm[Hg] 82 mm[Hg] ABDULKADIR Jacob [facility] 5 09:37:40 Social History Question Answer Notes LastModified by Organizat ion Details LastModified Time Tobacco Smoking Status Never Smoker Pat rodriguez, [facility] 09/20/2023 16:18:57 Do You Have An [...] Or The Highest Degree You Have Received? [id number] Information not available 07/22/2021 What Is Your [...] Anxious, Or Unable To Sleep At Night)? [id number] Information not available 07/21/2021 Do You Use Any Illicit Or Recreational Drugs? No Information not available 07/21/2021 Do You Use Sunscreen Routinely? Yes Information not available 07/21/2021 Have You Used IV Drugs? No Information not available 07/22/2021 Sex: Unknown Functional Status Question Answer Note LastModified by Organizat ion Details LastModified Time Do you have difficulty walking or climbing stairs? No [email or web address] Information not available 11/09/2024 Are you able to walk? YESWOREST Information not available 07/21/2021 Do you have difficulty dressing or bathing? No Information not available 11/09/2024 What is your exercise level? Occasional Information not available 04/28/2023 Mental Status None recorded. Family History Relationship Description Onset Age of this Age Resolved Age Notes LastModified by Organization Details LastModified Time Mother Carcinoma in situ of breast [email or web address] Not available 2024 09:33:23 Mother Hypercholest erolemia [email or web address] Not available 2019 09:36:28 Mother Excision of cyst of ovary [email or web address] Not available 2024 09:33:23 Mother Asthma [email or web address] Not available 09:37:03 Maternal Grandmother Hypercholest erolemia [email or web address] Not available 2019 09:36:28 Maternal Grandmother Excision of cyst of ovary [email or web address] Not available 2024 09:33:23 Paternal Grandmother Hypercholest erolemia [email or web address] Not available 2019 09:36:28 Maternal Grandfather Asthma [email or web address] Not available 2019 09:37:03 Brother Asthma [email or web address] Not available 1 09:37:03 Father Diabetes mellitus [email or web address] Not available 2019 09:37:12 Father Depressive disorder [email or web address] Not available 2019 09:37:23 Paternal Grandfather Disorder of cardiovascul ar system Not available 2024 09:33:23 Paternal Grandfather Carcinoma in situ of lung [email or web address] Not available 09:33:23 Medical History Condition Response Allergies (Food, seasonal, [...] Abnormal Pap N Date of Last Mammogram 10/26/2024 Date of LMP 10/11/2010 On BCP's at [...] Diagnosis/Indication Diagnosis SNOMED-CT Code Diagnosis ICD10 Code Diagnosis Note [id number] Hannah Sharma [facility] [address] [address] 06/21/2020 14:59:25 06/21/2020 17:18:05 Mass of right breast [id number] 9162046 N63.10 Exam warrants need for further imaging in both breasts. Orders given. ADvised to go to imaging center that did her last images & bx's so they can compare & also know about the markers placed in her breasts. She agrees. Will make appt for WWE. Time spent in visit is a total of 15 mins with at least 50% of visit consisting of counseling and review of plan of care. Mass of left breast 1224 621689 [id number] N63.20 [id number] Hannah Sharma [facility] [address] [address] 07/17/2020 09:32:02 07/17/2020 10:22:59 Gynecologic examination 00502943 Z01.419 Suggested Calcium with Vitamin D 1200-1500m g daily. Patient advised to get an annual flu shot in the fall and she could obtain at [facility] or [facility] care clinic. Also to obtain TDap vaccinatio n if you have not had one in the last 10 years. Recommend yearly mammograms . Encouraged monthly self breast exams. Encourage safe sexual practices, to use condoms and limit partners if not already in a monogamous relationsh ip. Engage in daily exercise of low impact aerobic exercise 45-60 minutes 4-5 times weekly. Avoid tobacco and illicit drugs as well as using moderation with alcohol intake less than 1-2 8 oz beverages daily. This lifestyle behavior pattern will lead to less health conditions and longer life span. If BMI greater than 25 weight watchers or dietary consult advised. All questions have been answered. Patient appears to understand informatio n, but if you have any questions please call or respond to this email. Updated pap/hpv Norm pap/hpv hx monogamous relationsh ip x 18yrs Mammo/US completed & has breast bx scheduled next week. No other issues or complaints . [id number] Hannah Sharma , [facility] [address],[place] [address] 07/18/2021 16:24:19 07/21/2021 20:17:51 Urinary symptoms 014616150 R39.9 [id number] Hannah Sharma , [facility] [address],[place] [address] 07/22/2021 09:31:43 07/22/2021 10:58:46 Urinary symptoms 878662690 R39.9 Gynecologi c examination 29101279 Z01.419 Suggested Calcium with Vitamin D 1200-1500m g daily. Patient advised to get an annual flu shot in the fall and she could obtain at [facility] or [facility] care clinic. Also to obtain TDap vaccinatio n if you have not had one in the last 10 years. Recommend yearly mammograms . Encouraged monthly self breast exams. Encourage safe sexual practices, to use condoms and limit partners if not already in a monogamous relationsh ip. Engage in daily exercise of low impact aerobic exercise 45-60 minutes 4-5 times weekly. Avoid tobacco and illicit drugs as well as using moderation with alcohol intake less than 1-2 8 oz beverages daily. This lifestyle behavior pattern will lead to less health conditions and longer life span. If BMI greater than 25 weight watchers or dietary consult advised. All questions have been answered. Patient appears to understand informatio n, but if you have any questions please call or respond to this email. Hx of endo ablationUp dated pap/hpv Norm pap/hpv hx monogamous relationsh ip x 18yrs Mammo/US completed & has breast bx scheduled next week. No other issues or complaints . History of calculus of kidney [id number] Z87.442 R10.9 R35.0 We will set up your imaging.Un able to take bladder analgesics Patient is to contact office or go to nearest ED/Urgent care if fever >/= 100.1, pain, excessive bleeding, unusual drainage or swelling in area of concern; or experienci ng worsening sx's or new onset of concerning sx's. Understand ing verbalized . All questions answered to patient satisfacti on. Pain in pelvis 20282177 R10.2 R10.9 [id number] Hannah Sharma [facility] [address],[place] [address] 04/28/2023 15:07:27 04/28/2023 15:40:57 Urinary symptoms 615870266 R39.9 Suspect UTIUrine culture sentRx sentAzo/Cy stex OTC prn Time spent in visit is a total of 15 mins with at least 50% of visit consisting of counseling and review of plan of care. [id number] Adam Magana MD [facility] [address],[place] [address] 05/17/2023 15:39:12 05/17/2023 16:29:18 Urinary symptoms 538700761 R39.9 [id number] Hannah Sharma [facility] [address],[place] [address] 09/11/2023 10:03:43 09/14/2023 12:01:45 Pain in pelvis 34466826 R10.2 This patient is a 43 -year-old female with pelvic pain. We have agreed to complete the evaluation with pelvic ultrasound . The patient will return after the pelvic ultrasound to discuss those findings and to develop a treatment plan. A comprehens nieves history and physical exam was performed today. We spent over 25 minutes face-to-fa ce. The patient was given precaution s. She will contact clinic if pelvic pain increases in frequency or intensity. Also notify clinic of any new symptoms associated with pelvic pain. She does not appear to have an acute pelvic infection today, but was asked to contact us Immediatel y with nausea, vomiting, fever, chills. [id number] Elizabeth Richardson [facility] [address] [address] 09/20/2023 16:18:36 09/20/2023 17:29:18 Pain in pelvis 58489793 R10.2 [id number] MAGGIE Johnson [facility] [address] [address] 11/09/2024 09:33:15 11/09/2024 11:54:37 Gynecologic examination 25720628 Z01.419 WWEBC - Partner with vasectomyP ap - done todaySTI screen - declinedMa mmogram - UTD/sitema nColon cancer screening [facility]/PCPRTC in 1 yr or sooner if needed Suggested Calcium with Vitamin D daily. Patient advised to get an annual flu shot in the fall and she could obtain at local pharmacy. Also to obtain TDap vaccinatio n if you have not had one in the last 10 years. Recommend yearly mammograms . Encouraged monthly self breast exams. Encourage safe sexual practices, to use condoms and limit partners if not already in a monogamous relationsh ip. Engage in regular exercise. Avoid tobacco and illicit drugs. This lifestyle behavior pattern will lead to less health conditions and longer life span. If BMI greater than 25 dietary consult advised. All questions have been answered. Health Concerns Section Related Observation LastModified by Organization Detai ls LastModified Time None Recorded Concern Status LastModified by Organization Details LastModified Time None Recorded Advance Directives Directive Y: Payers Encounter Date Sequence Insurance Name Policy Number Policy Bryant Covered Member ID Bryant Member ID Guarantor Name 04/28/2023 1 [employer] [id number] Damon Nicole [id number] Damon Nicole 05/17/2023 1 [employer] [id number] Damon Nicole [id number] Damon Nicole 09/11/2023 1 [facility]: ([place]O) [id number] Damon Nicole [id number] Damon Nicole 09/20/2023 1 [facility]: (PPO) [id number] Damon Nicole [id number] Damon Nicole 11/09/2024 1 [facility] (PPO) [id number] Damon Nicole [id number] Damon Nicole Notes Date Note Type Note Provider Name and Address Organization Details Recorded Time 3 text/html Here today for urinary sx's of urinary urgency, bladder spasms and frequency since returning this week from vacation. Neg pain of abd/pelvis/flankNeg GI sx'sNeg N/V/F/C/DNeg Vag d/c, odor, irritation, itching Hannah Sharma [facility] [address], [place], [address], [facility] 04/28/2023 15:39:26 3 text/html this patient is a 42-year-old female [...] await culture and urinalysis. Spent 20 minutes [id number]. More than 50% was counseling. Adam Magana MD [address], [place], [address], [facility] 05/17/2023 16:25:45 3 text/html Kaylie is a perimenopausal white female [...] N/V/F/C/DNeg Vag d/c, odor, irritation, itchingNeg monogamous MAGGIE Cordero- [address], [place], [address], [facility] 09/14/2023 11:44:58 5 text/html Annual GYNReported bypatient.Menstrual cycle:Normal menses Urinary symptoms:No hematuria; No incontinence Vulva:No genital lesion Vagina:Normal vaginal discharge Breast:No breast pain; No breast lump; No nipple discharge Current Contraception:Satisfied with current contraception; Partner had vasectomy Sexual complaints:No sexual complaints; No pain during intercourse; Normal libido Menopausal Symptoms:No menopausal symptoms; Normal vaginal lubrication Psychological symptoms:No depression; No anxiety; No PMDD Preventive measures:Encourage self breast examination; Encourage regular exercise; Encourage no tobacco use; Encourage regular mammograms starting age 39Notes:44yo wweBC - partner with vasectomyh/o endometrial ablationlast pap 07/2020 : nilm, HPV (-)mammogram UTD/siteman , going back for diagnostic mammogram this week d/t inconclusive screening mammogramcolonoscopy UTD MAGGIE Johnson [address], [place], [address], [facility] 11/09/2024 11:46:11 OBGyn Episode Ob Episode Information Episode Created Date Number of Fetuses Patient Bloodtype Patient rh Status Prepregnancy Weight lbs Domestic Partner Domestic Partner Phone Father Name [employer] Status 07/17/20 20 1 DELETED Jose Calculation Initial Jose Date Initial Exam Date Initial Exam Provider Initial Ultrasound Date Last Menstrual Period Date Ultra Sound Weeks Gestation 0 Eighteen To Twenty Week Jose Update Ultra Sound Date Fundal Height At Umbil Quickening Date Ultra Sound Latest Weeks Gestation Final Jose Confirmed By Final Jose Confirmed Date Final Jose Date Ultra Sound Latest Days Gestation 0 [...] Domestic Partner Domestic Partner Phone Father Name [employer]er Status 07/17/20 20 1 CLOSED Fetus Data First Name Last Name Admitted to NICU Weight (g) Sex Living Outcome Pediatric Complications Fetus ID Race Codes Race Delivery Type 3940.35 3704 F Full Term 5120 Primary Jose Calculation Initial Jose Date Initial Exam Date Initial Exam Provider Initial Ultrasound Date Last Menstrual Period Date Ultra Sound Weeks Gestation 0 Eighteen To Twenty Week Jose Update Ultra Sound Date Fundal Height At Umbil Quickening Date Ultra Sound Latest Weeks Gestation Final Jose Confirmed By Final Jose Confirmed Date Final Jose Date Ultra Sound Latest Days Gestation 0 [...] Domestic Partner Domestic Partner Phone Father Name [employer]er Status 07/17/20 20 1 DELETED Jose Calculation Initial Jose Date Initial Exam Date Initial Exam Provider Initial Ultrasound Date Last Menstrual Period Date Ultra Sound Weeks Gestation 0 Eighteen To Twenty Week Jose Update Ultra Sound Date Fundal Height At Umbil Quickening Date Ultra Sound Latest Weeks Gestation Final Jose Confirmed By Final Jose Confirmed Date Final Jose Date Ultra Sound Latest Days Gestation 0 [...] Domestic Partner Domestic Partner Phone Father Name [employer] Status 07/17/20 20 3 CLOSED Fetus Data First Name Last Name Admitted to NICU Weight (g) Sex Living Outcome Pediatric Complications Fetus ID Race Codes Race Delivery Type 1785.79 1704 F Prematur e 5119 Repeat 1757.66 9 F Prematur e 16343 Repeat 1672.39 3704 F Prematur e 38875 Repeat Jose Calculation Initial Jose Date Initial Exam Date Initial Exam Provider Initial Ultrasound Date Last Menstrual Period Date Ultra Sound Weeks Gestation 0 Eighteen To Twenty Week Jose Update Ultra Sound Date Fundal Height At Umbil Quickening Date Ultra Sound Latest Weeks Gestation Final Jose Confirmed By Final Jose Confirmed Date Final Jose Date Ultra Sound Latest Days Gestation 0 [...]
--- OUTSIDE RECORDS SUMMARY | 2024-11-14 17:39 | XMS_ITS | Encounter Summary ---
Author Organization [facility] Address [address] [place] [address] Care Team Providers Care Shipping Processor Name Role Phone Michael Acharya MD Primary Care Provider [phone] Renetta Vasquez MD Primary Care Provider Un available Encounter Details Date Type Department Care Team (Late st Contact Info) Description 08/12/2018 Lab Requisition [facility] Care DermPath Lab [address] [facility] [place] [phone] Shavonne Anders MD [address] [facility] [address] [place] [address] Social History Tobacco Use Types Packs/Day Years Used Date Smoking Tobacco: Never Smokeless Tobacco: Never Alcohol Use Standard Drinks/Week Comments Yes 0 (1 standard drink = 0.6 oz pur e alcohol) rarely Sex and Gender Information Value Date Recorded Sex Assigned at Not on file Gender Identity Not on file Sexual Orientation Not on file documented as of this encounter Plan of Treatment Not on file documented as of this encounter Procedures Procedure Name Priority Date/Time Associated Diagnosis Comments DERMATOPATH TECHNICAL REPORT Routine 08/11/2018 12:00 AM CDT documented in this encounter Results * DERMATOPATH TECHNICAL REPORT (08/11/2018 12:00 AM CDT) Case Report Dermatopathology Report ? Case: [id number] ? Authorizing Provider: ??Shavonne Anders MD ?Collected: ? 08/11/2018 12:00 AM ? Pathologist: ? Nell Doty MD ? Received: ?08/12/2018 06:56 AM ? Specimen: ?Skin, back ? 10:[address] [facility] DERMATOPATHOLOGY LABORATORY Clinical History R/O cyst, irritated, painful. 10:[address] [facility] DERMATOPATHOLOGY LABORATORY Gross Description Specimen A: Received is one formalin filled container labeled with the patient's name and designated back. The specimen consists of a [id number] excision. The specimen is serially sectioned and a sales representative supervisor section is submitted in cassette 1. Jar 1. [facility] Dermatopathology [facility] performed the technical component only. 10:[address] [facility] DERMATOPATHOLOGY LABORATORY Embedded Images 10:[address] [facility] DERMATOPATHOLOGY LABORATORY DISCLAIMER An external and internal positive and negative controls are appropriate for the histochemical, immunohistochemical and immunofluorescence stain(s) in this case (if any), except where stated explicitly. The performance characteristics of the stain(s) cited in this report were developed and its performance characteristic determined by the Dermatopathology Laboratory at [facility]. These tests need not be, and therefore are not, approved by the [place] Food and Drug Administration. The tests are used for clinical purposes. 10:[address] [facility] DERMATOPATHOLOGY LABORATORY Pathology/Cytolog y TISSUE SPECIMEN FROM SKIN / Unknown 08/11/2018 08/12/2018 6:56 AM CDT Shavonne Anders MD LAB - PATHOLOGY/CYTO LOGY ORDERABLES DERMATOPATHOLOGY LABORATORY [facility] - Department of Dermatology [address] [place] [address], 5th Floor Lab [address] [place], [place] [id number] [place] [address] documented in this encounter Visit Diagnoses Not on filedocumented in this encounter Care Teams Shipping Processor Relationship Specialty Start Date End Date Michael Acharya MD [address] [place] [address] PCP - General 08/03/18 12/28/19 Renetta Vasquez MD [address] [place] [address] PCP - General 12/29/19 documented as of this encounter
--- OUTSIDE RECORDS SUMMARY | 2024-11-14 17:39 | XMS_ITS | Clinical Summary ---
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 Gender Identity Not on file Sexual Orientation Not on file Plan of Treatment Health Maintenance Due Date Last Done Comments Hepatitis C Virus (HCV) Screening 1979 TdaP Immunization 1979 Hepatitis B Immunization (1 of 3 - 19+ 3-dose series) 1998 Pap Smear 2000 Cervical Cancer Screening (CCS) 2009 HPV/Cotest 2009 Discussion re Starting/Frequency of Mammograms 2019 Colonoscopy 2024 Colorectal Cancer Screening 2024 Influenza Immunization (#1) 06/11/2024/0 01/2022, 06/25/2020, 06/27/2019, Additional history exists SARS-COV-2 Immunization (2023- season) 2024 11/05/2021, 12/31/2020, 12/10/2020 Respiratory Syncytial Virus (RSV) Immunization (Adult) (1 - 1-dose 75+ series) 2054 Meningococcal Immunization (ACWY) Aged Out No longer eligible based on patient's age to complete this topic Pneumococcal Immunization Combined Aged Out No longer eligible based on patient's age to complete this topic Rotavirus Immunization Aged Out No lo nger eligible based on patient's age to complete this topic
--- OUTSIDE RECORDS SUMMARY | 2024-11-14 17:39 | XMS_ITS | Clinical Summary ---
Author Organization [facility] Address [address] [place] [address] Care Team Providers Care Wool Hat Forming Machine Tender Name Role Phone Renetta Vasquez MD Primary Care Provider Un available Source Comments [facility],non-owned Affiliates and Associated Physician Practices is amultiple site organization consisting of ambulatory clinics and hospital sitesin [place], [place], [place] and [place]. This disclosure is being madepursuant to the Care Everywhere program and may not contain all information available regarding this patient. Last updated 18.[facility] Allergies Active Allergy Reactions Criticality Noted Date [...] Acetaminophen (TYLENOL PO) Active Cholecalciferol (VITAMIN D3) 76703 units capsule 03/09/2019 Active sertraline (ZOLOFT) 50 [...] Diagnosed Date Resolved Date Diarrhea 09/19/2018 10/17/2018 Encounters Date Type Department Care Team Description 09/05/[address] [facility] - DermPath Lab [address] [facility] [place] [address] Carla Mcdaniels DO from Last 3 Months Immunizations Name Administration Dates Next Due INFLUENZA VACCINE, CELL CULT URE, QUADR. (FLUCELVAX QUADRIVALENT; 6MO+) (CCIIV4) 06/27/2019 INFLUENZA VACCINE, QUADR. (F LUZONE; FLULAVAL; FLUARIX; AFLURIA QUADRIVALENT; 6MO+), 0.5 ML (IIV4) 09/27/2023 Family History Medical History Relation Name Comments Depression Brother Other Brother stomach issue s Depression Father Cancer - Breast Mother Hearing Loss - Congenital half-sister Relation Name Status Comments Brother Alive Father Alive Maternal Grandfather Maternal Grandmother Mother Alive Paternal Grandfather Paternal Grandmother half-sister Alive Social History Tobacco Use Types Packs/Day Years [...] 12/19/2019 4:00 PM CDT Plan of Treatment Health Maintenance Due Date Last Done Comments COLOGUARD (AGES 45-75) - COLON CA SCREENING 1979 CT COLONOGRAPHY - COLON CA SCREENING 1979 FIT - COLON CA SCREENING 1979 FLEX SIG - COLON CA SCREENING 1979 LIPID TESTING 1979 PAP SMEAR 1979 HIV SCREENING 1994 HEPATITIS C SCREENING 05/25/1997 DTAP/TDAP/TD VACCINES (1 - Tdap) 1998 HEPATITIS B VACCINE (1 of 3 - 19+ 3-dose series) 1998 MAMMOGRAM 08/15/2020 08/15/2018 COVID-19 VACCINE (5 - season) 2024 08/30/2022, 11/05/2021, 12/31/2020, Additional history exists INFLUENZA VACCINE (#1) 2024 , 08/15/2022, 10/14/2021, Additional history exists DEPRESSION SCREENING 10/11/2024 COLON MONITORING 04/03/2029 04/03/2019, , 04/03/2019 COLONOSCOPY - COLON CA SCREENING 04/03/2029 04/03/2019, 04/03/2019, 04/03/2019 Colorectal Cancer Screening 04/03/2029 ZOSTER VACCINE (1 of 2) 2029 HIB VACCINE Aged Out No longer eligi ble based on patient's age to complete this topic HPV VACCINE Aged Out No longer eligi ble based on patient's age to complete this topic MENINGOCOCCAL (Group B) VACCINE Aged Out No longer eligible based on patient's age to complete this topic MENINGOCOCCAL VACCINE Aged Out No annie betsy eligible based on patient's age to complete this topic PNEUMOCOCCAL VACCINE Aged Out No long er eligible based on patient's age to complete this topic Procedures Procedure Name Priority Date/Time Associated Diagnosis Comments DERMATOPATHOLOGY Routine 09/05/2024 8:13 AM CUSTOMER ACQUISITION MANAGER ENDOSCOPY, COLON, DIAGNOSTIC Routine 04/03/2019 11:38 AM CDT Chronic diarrhea from Last 3 Months or Most Recently Relevant to Health Maintenance Results * DERMATOPATHOLOGY (09/05/2024 8:13 AM CUSTOMER ACQUISITION MANAGER) Case Report Dermatopathology Report ? Case: [id number] ? Authorizing Provider: ??Carla Mcdaniels, DO ?? Collected: ? 09/05/2024 08:13 AM ? Ordering Location: ? [facility] - ??Received: ?09/05/2024 12:38 PM ? DermPath Lab ? Pathologist: ? Lelo Reid MD ? Specimen: ?Skin, left chin ? 4 11:11 AM CUSTOMER ACQUISITION MANAGER DERMATOPATHOLOGY LABORATORY Final Diagnosis Specimen A. SKIN, left chin: BENIGN VERRUCOUS KERATOSIS (L82.1) (see microscopic description and comment) 4 11:11 AM CUSTOMER ACQUISITION MANAGER DERMATOPATHOLOGY LABORATORY Clinical History R/O NMSC 11:11 AM [facility] DERMATOPATHOLOGY LABORATORY Gross Description Specimen A: Received is one formalin filled container labeled with the patient's name and designated left chin. The specimen consists of a shave biopsy measuring 3x3x1 mm. Jar 0. 11:11 AM [facility] DERMATOPATHOLOGY LABORATORY Microscopic Description Specimen A. SKIN, left chin: Sections show hyperkeratosis, papillomatosis, hypergranulosis, and acanthosis. These histological findings can be seen in a verruca vulgaris or a seborrheic keratosis. Additional deeper sections were obtained and reviewed. COMMENT: Given the superficial nature of the biopsy specimen, a deeper dermal process cannot be excluded. 11:11 AM [facility] DERMATOPATHOLOGY LABORATORY Disclaimer An external and internal positive and negative controls are appropriate for the histochemical, immunohistochemical and immunofluorescence stain(s) in this case (if any), except where stated explicitly. The performance characteristics of the stain(s) cited in this report were developed and its performance characteristic determined by the Dermatopathology Laboratory at [facility], directed by Dr. Kelly Crane. These tests need not be, and therefore are not, approved by the [place] Food and Drug Administration. The tests are used for clinical purposes. Billing Codes Specimen Charges Stain Charges 02631 1 11:11 AM [facility] DERMATOPATHOLOGY LABORATORY Embedded Images 11:11 AM [facility] DERMATOPATHOLOGY LABORATORY Pathology/Cytolo gy TISSUE SPECIMEN FROM SKIN / Unknown 09/05/2024 8:13 AM CUSTOMER ACQUISITION MANAGER 09/05/2024 12:38 PM CUSTOMER ACQUISITION MANAGER Carla Mcdaniels DO LAB - PATHOLOGY/C YTOLOGY ORDERABLES DERMATOPATHOLOGY LABORATORY [facility] - Department of Dermatology [address], [address] [phone] * ENDOSCOPY, COLON, DIAGNOSTIC (04/03/2019 11:38 AM [...] bowel preparation was evaluated using the BBPS ([place] ? Bowel Preparation Scale) with scores of: [...] Procedure Code(s): ? --- Professional --- ? 09778, Colonoscopy, flexible; with biopsy, single or multiple ? --- Technical --- ? 66273, Colonoscopy, flexible; with biopsy, single or multiple Diagnosis Code(s): ? --- Professional --- ? K52.9, Noninfective gastroenteritis and colitis, unspecified ? --- Technical --- ? K52.9, Noninfective gastroenteritis and colitis, unspecified CPT copyright 2017 [employer]. All rights reserved. The codes documented in this report are preliminary and upon field horticultural specialty grower review may be revised to meet current compliance requirements. Adilene Templeton MD Adilene Templeton MD 04/03/2019 12:54:48 PM Number of Addenda: 0 Note Initiated On: 04/03/2019 11:[address] [facility] ENDOSCOPY 04/03/2019 11:3 8 AM CDT Adilene Templeton MD GI PROCEDURE DAMIEN BOOTH [facility] ENDOSCOPY from Last 3 Months or Most Recently Relevant to Health Maintenance Care Teams Wool Hat Forming Machine Tender Relationship Specialty Start Date End Date Renetta Vasquez MD [address] [place] [address] PCP - General 12/29/19
--- OUTSIDE RECORDS SUMMARY | 2024-11-14 17:40 | XMS_ITS | Encounter Summary ---
Author Organization [facility] Address [address] [facility] [place] [address] Care Team Providers Care Emr Implementation Specialist Name Role Phone Renetta Vasquez MD Primary Care Provider Un available Encounter Details Date Type Department Care Team (Late st Contact Info) Description 08/12/2023 Lab Requisition [facility] - DermPath Lab [address] [facility] [place] [address] Shavonne Anders MD [address] [facility] [address] [place] [address] Social History Tobacco Use Types Packs/Day Years [...] Priority Date/Time Associated Diagnosis Comments DERMATOPATHOLOGY Routine 08/12/2023 1:55 PM CDT documented in this encounter Results * DERMATOPATHOLOGY (08/12/2023 1:55 PM CDT) Case Report Dermatopathology Report ? Case: [id number] ? Authorizing Provider: ??Shavonne Anders MD ?Collected: ? 08/12/2023 01:55 PM ? Ordering Location: ? [facility] DermPath Lab ? Received: ?08/13/2023 01:19 PM ? Pathologist: ? Alexia Rogers MD ? Specimen: ?Skin, chin ? 3 3:23 PM [facility] DERMATOPATHOLOGY LABORATORY Final Diagnosis Specimen A. 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 The specimen consists of a shave biopsy measuring 5x3x1 mm. Jar 0. 3 3:23 PM [facility] DERMATOPATHOLOGY LABORATORY Microscopic Description Specimen A. SKIN, chin: Sections show superficial portions of hyperkeratosis, papillomatosis, hypergranulosis, and acanthosis. This lesion is present at the margin of the specimen. Additional deeper sections were obtained and reviewed. COMMENT: These histological findings can be seen in a verruca vulgaris or a seborrheic keratosis; however, if this specimen is sampled from a larger lesion, these findings may not be jewelry sales representative of the entire lesion. Clinicopathologic correlation is recommended. 3 3:23 PM [facility] DERMATOPATHOLOGY LABORATORY Disclaimer An external and internal positive and negative controls are appropriate for the histochemical, immunohistochemical and immunofluorescence stain(s) in this case (if any), except where stated explicitly. The performance characteristics of the stain(s) cited in this report were developed and its performance characteristic determined by the Dermatopathology Laboratory at [facility], directed by Dr. Kelly Crane. These tests need not be, and therefore are not, approved by the [place] Food and Drug Administration. The tests are used for clinical purposes. Billing Codes Specimen Charges Stain Charges 91546 1 3 3:23 PM [facility] DERMATOPATHOLOGY LABORATORY Embedded Images 3 3:23 PM [facility] DERMATOPATHOLOGY LABORATORY Pathology/Cytolo gy TISSUE SPECIMEN FROM SKIN / Unknown 08/12/2023 1:55 PM CDT 08/13/2023 1:19 PM CDT Shavonne Anders MD LAB - PATHOLOGY/CYTO LOGY ORDERABLES DERMATOPATHOLOGY LABORATORY [facility] - Department of Dermatology [address], [address] [phone] documented in this encounter Visit Diagnoses Not on filedocumented in this encounter Care Teams Emr Implementation Specialist Relationship Specialty Start Date End Date Renetta Vasquez MD [address] [place] [address] PCP - General 12/29/19 documented as of this encounter
--- OUTSIDE RECORDS SUMMARY | 2024-11-14 17:40 | XMS_ITS | Patient Health Summary ---
Author Organization [facility] [employer] Address [address] [place] [address] Care Team Providers Care Cancer Registrar Name Role Phone Renetta Vasquez MD Primary Care Provider Un available Note from [facility],non-owned Affiliates and Associated Physician Practices is amultiple site organization consisting of ambulatory clinics and hospital sitesin [place], [place], [place] and [place]. This disclosure is being madepursuant to the Care Everywhere program and may not contain all information available regarding this patient. Last updated 18.[facility] [employer] Allergies * Adhesive Sensitivity(Rash) -Medium Criticality * Ibuprofen(Swelling) * Naproxen(Swelling) * Aspirin(Swelling) * Clarithromycin(Nausea and/or Vomiting) * Ciprofloxacin(Vomiting) * Erythromycin(Nausea and/or Vomiting) * Tramadol(Other) * Midazolam(Other) Medications * Be aware that medications may not be up to date on this document. Alwaysverify current medications with the patient. * montelukast (SINGULAIR) 10 MG tablet(Started 08/31/2018) Take 10 mg by mouth every 30 days * Acetaminophen (TYLENOL PO) * Cholecalciferol (VITAMIN D3) 13803 units capsule(Started 03/09/2019) * sertraline (ZOLOFT) 50 MG tablet(Started 02/11/2019) Active Problems Problem Noted Date Diagnosed Date [...] Date Resolved Date Diarrhea 09/19/2018 10/17/2018 Immunizations * INFLUENZA VACCINE, CELL CULTURE, QUADR. (FLUCELVAX QUADRIVALENT; 6MO+) (CCIIV4)(Given 06/27/2019) * INFLUENZA VACCINE, QUADR. (FLUZONE; FLULAVAL; FLUARIX; AFLURIA QUADRIVALENT; 6MO+), 0.5 ML (IIV4)(Given 09/27/2023) Social History Tobacco Use Types Packs/Day Years [...] Mass Index 38.44 12/19/2019 4:00 PM CDT Procedures * DERMATOPATHOLOGY(Performed 09/05/2024) * DERMATOPATHOLOGY(Performed 08/12/2023) * C-REACTIVE PROTEIN SENSITIVE(Performed 12/20/2019) * PATHOLOGY TISSUE EXAM (STL)(Performed 04/03/2019) Performed for Chronic diarrhea * COLONOSCOPY BIOPSY (ANY METHOD)(Performed 04/03/2019) Performed for Chronic diarrhea * ESOPHAGOGASTRODUODENOSCOPY (EGD) BIOPSY(Performed 04/03/2019) Performed for Chronic diarrhea * ESOPHAGOGASTRODUODENOSCOPY (EGD) DIAGNOSTIC(Performed 04/03/2019) Performed for Chronic diarrhea * COLONOSCOPY SCREEN(Performed 04/03/2019) Performed for Chronic diarrhea * EGD(Performed 04/03/2019) Performed for Chronic diarrhea * ENDOSCOPY, COLON, DIAGNOSTIC(Performed 04/03/2019) Performed for Chronic diarrhea * HCG URINE QUALITATIVE - POCT (IP) INTERFACED(Performed 04/03/2019) * HCG URINE QUAL POCT NOTIFICATION(Performed 04/03/2019) Performed for Preop examination * CULTURE STOOL PANEL(Performed 02/14/2019) Performed for Chronic diarrhea * CALPROTECTIN FECAL(Performed 02/13/2019) * PH FECES(Performed 02/13/2019) Performed for Chronic diarrhea * PANCREATIC ELASTASE FECES(Performed 02/13/2019) Performed for Chronic diarrhea * C DIFFICILE CX W/RFLX TO TOXIN B PCR(Performed 02/13/2019) Performed for Chronic diarrhea * ERYTHROCYTE SEDIMENTATION RATE(Performed 02/10/2019) * IRON + TIBC + FERRITIN(Performed 02/10/2019) Performed for Chronic diarrhea * TSH(Performed 02/10/2019) Performed for Chronic diarrhea * COMPREHENSIVE METABOLIC PANEL(Performed 02/10/2019) Performed for Chronic diarrhea * CBC W AUTO DIFFERENTIAL(Performed 02/10/2019) Performed for Chronic diarrhea * VITAMIN B12(Performed 02/10/2019) Performed for Chronic diarrhea * VITAMIN D 1,25 DIHYDROXY(Performed 02/10/2019) Performed for Chronic diarrhea * TISSUE TRANSGLUTAMINASE AB IGA(Performed 02/10/2019) Performed for Chronic diarrhea * C-REACTIVE PROTEIN SENSITIVE(Performed 02/10/2019) Performed for Chronic diarrhea * HLA TYPING CELIAC DISEASE(Performed 02/10/2019) Performed for Chronic diarrhea * URINALYSIS REFLEX TO MICROSCOPIC NO CULTURE(Performed 09/20/2018) * CULTURE URINE(Performed 09/20/2018) Performed for Renal stones, Dysuria * CHLAMYDIA + GC AMPLIFIED PROBE(Performed 09/20/2018) Performed for Renal stones, Dysuria * CULTURE URINE(Performed 09/20/2018) Performed for Chronic pelvic pain in female, Dyschezia, Dysuria, Dysmenorrhea, Renal stones * CHLAMYDIA + GC AMPLIFIED PROBE(Performed 09/20/2018) Performed for Chronic pelvic pain in female, Dyschezia, Dysuria, Dysmenorrhea, Renal stones * URINALYSIS AUTO - POINT OF CARE (AMB) SLU(Performed 09/19/2018) Performed for Kidney stones * CULTURE URINE(Performed 09/19/2018) Performed for Kidney stones * VA INSERT NON-INDWELLING BLADDER(Performed 09/19/2018) Performed for Renal stones, Dysuria, Stress incontinence in female * URINALYSIS - POINT OF CARE(Performed 09/19/2018) Performed for Renal stones, Dysuria, Hematuria, unspecified type * IMAGING/RADIOLOGY/XRAY RESULTS ORDER(Performed 09/05/2018) * IMAGING/RADIOLOGY/XRAY RESULTS ORDER(Performed 08/22/2018) * VA SONO EXAM, TRANSVAGINAL(Performed 08/19/2018) Performed for Chronic pelvic pain in female * DERMATOPATH TECHNICAL REPORT(Performed 08/11/2018) * DERMATOPATHOLOGY(Performed 08/19/2016) Results * DERMATOPATHOLOGY (09/05/2024 8:13 AM EXERCISE PHYSIOLOGIST) Only the most recent of3 resultswithin the time period is included. Case Report Dermatopathology Report ? Case: [id number] ? Authorizing Provider: ??Carla Mcdaniels DO ?? Collected: ? 09/05/2024 08:13 AM ? Ordering Location: ? [facility] - ??Received: ?09/05/2024 12:38 PM ? DermPath Lab ? Pathologist: ? Lelo Reid MD ? Specimen: ?Skin, left chin ? 11:11 AM [facility]ERMAT[facility] Final Diagnosis Specimen A. SKIN, left chin: BENIGN VERRUCOUS KERATOSIS (L82.1) (see microscopic description and comment) 11:11 AM [facility] DERMATOPATH[facility]Y [facility] Clinical History R/O NMSC 11:11 AM [facility] DERMATOPATHOLOGY [...] characteristic determined by the Dermatopathology Laboratory at [facility], directed by Dr. Kelly Crane. These tests need not be, and therefore are not, approved by the [place] Food and Drug Administration. The tests are used for clinical purposes. Billing Codes Specimen Charges Stain Charges 69662 1 4 11:11 AM [facility] DERMATOPATHOLOGY [facility]ORY Embedded Images 11:11 AM EXERCISE PHYSIOLOGIST DERMATOPATHOLOGY LABORATORY Pathology/Cytolo gy TISSUE SPECIMEN FROM SKIN / Unknown 09/05/2024 8:13 AM EXERCISE PHYSIOLOGIST 09/05/2024 12:38 PM EXERCISE PHYSIOLOGIST Carla Mcdaniels DO LAB - PATHOLOGY/C YTOLOGY ORDERABLES DERMATOPATHOLOGY LABORATORY [facility] - Department of Dermatology [facility] Medicine [address] [place] [address], [address]rd Floor [address] [phone] * (ABNORMAL) C-REACTIVE PROTEIN SENSITIVE (12/20/2019 1:30 PM CDT) Only the most recent of2 resultswithin the time period is included. C-Reactive Protein High Sensitivity 8.0(H) mg/L [facility] Comment: Reference Range Optimal <1.0 Shona ARIAS et al. Endocr Pract.2017;23(Suppl 2):1-87. For ages >17 Years: hs-CRP mg/L ??Risk According to AHA/CDC Guidelines <1.0 ? Lower relative cardiovascular risk. 1.0-3.0 ?Average relative cardiovascular risk. 3.1-10.0 ? Higher relative cardiovascular risk. ? Consider retesting in 1 to 2 weeks to ? exclude a benign transient elevation ? in the baseline CRP value secondary ? to infection or inflammation. >10.0 ?Persistent elevation, upon retesting, ? may be associated with infection and ? inflammation. Test Performed at: [facility] [address] [place], [place] ??[address] JOAN MA DO,MPH 12/20/2019 1:30 PM CDT 12/20/2019 1:31 PM CDT Adilene Templeton MD LAB - CHEMISTRY O RDERABLES [facility] [address] [place] [address] * GROSS + MICRO EXAM (STL) (04/03/2019 12:25 PM CDT) Case Report Surgical Pathology Report ? Case: [id number] ? Authorizing Provider: ??Adilene Templeton MD ?? Collected: ? 04/03/2019 12:25 PM ? Ordering Location: ? [facility] ?Received: ?04/03/2019 01:23 PM ? Pathologist: ? Meredith Payan MD ? Specimens: ?? A) - Duodenal Biopsy ? B) - Colon Biopsy, random ? 04/04/2019 4:04 PM CDT [facility] Final Diagnosis A. Duodenum, biopsy: - No significant histopathologic abnormality B. Large intestine, random colon, biopsy: - Benign fragments of colonic mucosa with prominent lymphoid aggregates. - No evidence of active colitis - No evidence of microscopic colitis Amber 04/04/2019 4:04 PM [facility] Clinical History The patient is a 38-year-old woman with chronic diarrhea. 04/04/2019 4:04 PM [facility] Gross Description A. Received in formalin, labeled with the patient's identification and duodenal biopsy are four irregular fragments of skaggs-pink tissue ranging from 0.1 to 0.3 cm in greatest dimension. The specimen is entirely submitted in cassette A1. B. Received in formalin, labeled with the patient's identification and random colon biopsy is a 1 x 1 x 0.1 cm aggregate of skaggs-pink, irregular tissue fragments. The specimen is entirely submitted in cassette B1. REHAN/radha 04/04/2019 4:04 PM [facility] Microscopic Description Microscopic examination substantiates the final diagnosis. Amber 04/04/2019 4:04 PM [facility] Disclaimer All histochemical and/or immunohistochemical results are interpreted with controls that demonstrate appropriate staining reactions before reporting results. Note on use of immunocytochemistry reagents: This test was developed and its performance characteristic determined by [facility], Department of Laboratory Medicine. It has not been cleared or approved by the U.S. Food and Drug Administration (FDA). The FDA has determined that such clearance or approval is not necessary. The test is used for clinical purpose. It should not be regarded as investigational or for research. This laboratory is certified to perform high complexity testing. 04/04/2019 4:04 PM [facility] Embedded Images 04/04/2019 4:04 PM T [facility] Pathology/Cytology DUODENAL BIOPSY SPECIMEN / Unknown 04/03/2019 12:25 PM CDT 04/03/2019 1:23 PM CDT Miscellaneous samples (specimen) COLONIC BIOPSY SPECIMEN / Unknown 04/03/2019 12:44 PM CDT 04/03/2019 1:23 PM CDT Adilene Templeton MD LAB - PATHOLOGY/C YTOLOGY ORDERABLES [facility] [address] [place] [address] * EGD (04/03/2019 11:40 AM CDT) Report Endoscopy POC __ _ Patient Name: Kaylie Nicole ? Procedure Date: 04/03/2019 11:40 AM ? Date of : 1980 ?Admit Type: Outpatient Age: 38 ? Gender: Female Ethnicity: Not or ? Race: White Attending MD: Adilene Templeton MD __ _ Procedure: ? Upper GI endoscopy Indications: ? Diarrhea Providers: ? Adilene Templeton MD (Doctor), Elenita Gonzalez RN Referring MD: ?Michael Acharya (Referring MD) Medicines: ? Monitored Anesthesia Care Complications: ? No immediate complications. __ _ Procedure: ? Pre-Anesthesia Assessment: ? - [...] to undergo ? the procedure. ? After obtaining informed consent, the endoscope was passed ? under direct vision. Throughout the procedure, the ? patient's blood pressure, pulse, and oxygen saturations ? were monitored continuously. The Endoscope was introduced ? through the mouth, and advanced to the second part of ? duodenum. The upper GI endoscopy was accomplished without ? difficulty. The patient tolerated the procedure well. ? Impression: ?- Esophagogastric landmarks identified. ? - Normal esophagus. ? - Normal stomach. ? - Normal examined duodenum. Biopsied. Findings: ? Esophagogastric landmarks were identified: the Z-line was found at 39 ? cm, the gastroesophageal junction was found at 39 cm and the site of ? hiatal narrowing was found at 39 cm from the incisors. ? The esophagus was normal. ? The stomach was normal. ? The cardia and gastric fundus were normal on retroflexion. ? The examined duodenum was normal. Biopsies were taken with a cold ? forceps for histology. Verification of patient identification for the ? specimen was done. Estimated blood loss was minimal. __ _ Recommendation: ?- Patient has a contact number available for emergencies. ? The signs and symptoms of potential delayed complications ? were discussed with the patient. Return to normal ? activities tomorrow. Written discharge instructions were ? provided to the patient. ? - Resume previous diet. ? - Continue present medications. ? - Await pathology results. ? Procedure Code(s): ? --- Professional --- ? 63901, Esophagogastroduode noscopy, flexible, transoral; with biopsy, ? single or multiple ? --- Technical --- ? 16386, Esophagogastroduode noscopy, flexible, transoral; with biopsy, ? single or multiple Diagnosis Code(s): ? --- Professional --- ? R19.7, Diarrhea, unspecified ? --- Technical --- ? R19.7, Diarrhea, unspecified CPT copyright 2017 [employer] [place] [employer]. All rights reserved. The codes documented in this report are preliminary and upon spray gun repairer helper review may be revised to meet current compliance requirements. Adilene Templeton MD ____ Adilene Templeton MD 04/03/2019 12:19:40 PM Number of Addenda: 0 Note Initiated On: 04/03/2019 11:40 AM [facility] 04/03/2019 11:4 0 AM CDT Adilene Templeton MD GI PROCEDURE [facility] * ENDOSCOPY, COLON, DIAGNOSTIC (04/03/2019 11:38 AM CDT) Report Endoscopy POC _ Patient Name: Kaylie Nicole ? Procedure Date: 04/03/2019 11:38 AM ? Date of : 1980 ?Admit Type: Outpatient Age: 38 ? Gender: Female Ethnicity: Not or ? Race: White Attending MD: Adilene Templeton MD _ Procedure: ? Colonoscopy Indications: ? Chronic diarrhea Providers: ? Adilene Templeton MD (Doctor), Elenita Gonzalez RN Referring : ?Michael Acharya (Referring ) Medicines: ? Monitored Anesthesia Care Complications: ? [...] bowel preparation was evaluated using the BBPS ([place]oven ? Bowel Preparation Scale) with scores of: [...] Procedure Code(s): ? --- Professional --- ? 60304, Colonoscopy, flexible; with biopsy, single or multiple ? --- Technical --- ? 30714, Colonoscopy, flexible; with biopsy, single or multiple Diagnosis Code(s): ? --- Professional --- ? K52.9, Noninfective gastroenteritis and colitis, unspecified ? --- Technical --- ? K52.9, Noninfective gastroenteritis and colitis, unspecified CPT copyright 2017 [employer] [place] [employer]. All rights reserved. The codes documented in this report are preliminary and upon spray gun repairer helper review may be revised to meet current compliance requirements. Adilene Templeton MD Adilene Templeton MD 04/03/2019 12:54:48 PM Number of Addenda: 0 Note Initiated On: 04/03/2019 11:38 AM [facility] 04/03/2019 11:3 8 AM CDT Adilene Templeton MD GI PROCEDURE ORDE RABVINITA Performing Organization Address City/[facility] Co de Phone Number [facility] * HCG URINE QUALITATIVE - POCT (IP) INTERFACED (04/03/2019 11:27 AM CDT) HCG Qual Urine Negative Negative 04/03/2019 11:28 AM CDT [facility] Urine URINE / Unknown 04/03/2019 1 1:27 AM CDT 04/03/2019 11:28 AM CDT Adilene Templeton MD LAB - POINT OF CA RE ORDERABLES Performing Organization Address [facility] Co de Phone Number [facility] [address] [place] [address] * HCG URINE QUAL POCT NOTIFICATION (04/03/2019 11:01 AM CDT) Comment Notification Label Only - See Separate Report 04/03/2019 12:30 PM CDT [facility] Urine URINE / Unknown 04/03/2019 1 1:01 AM CDT 04/03/2019 11:01 AM CDT Adilene Templeton MD LAB - URINALYSIS ORDERABLES Performing Organization Address [facility] Co de Phone Number [facility] [address] [place] [address] * CULTURE STOOL PANEL (02/14/2019 8:37 AM CDT) EIA [facility] Comment: ??SHIGA TOXINS, EIA W/RFL TO E.COLI O157 CULTURE ?MICRO NUMBER: ?[id number] ??TEST STATUS: ? FINAL ??SPECIMEN SOURCE: ?? STOOL ??SPECIMEN QUALITY: ??ADEQUATE ??RESULT: ?Not Detected Culture [facility] Comment: ??CAMPYLOBACTER, CULTURE ?MICRO NUMBER: ?[id number] ??TEST STATUS: ? FINAL ??SPECIMEN SOURCE: ?? STOOL ??SPECIMEN QUALITY: ??ADEQUATE ??RESULT: ?No enteric Campylobacter isolated Culture [facility] Comment: ??SALMONELLA AND SHIGELLA, CULTURE ?MICRO NUMBER: ?[id number] ??TEST STATUS: ? FINAL ??SPECIMEN SOURCE: ?? STOOL ??SPECIMEN QUALITY: ??ADEQUATE ??RESULT: ?No Salmonella or Shigella isolated REPORT COMMENT: SPLIT 02/13/2019 FROM [id number] Test Performed at: [facility] ??[phone] POOJA MATTHEWS MD Stool STOOL SPECIMEN / Unknown 02/14/2019 8:37 AM CDT 02/14/2019 8:38 AM CDT Adilene Templeton MD LAB - MICROBIOLOG Y ORDERABLES [address] [address] * C DIFFICILE CX W/RFLX TO TOXIN B PCR (02/13/2019 2:59 PM CDT) C difficile Culture NOT ISOLATED [facility] Comment: REFERENCE RANGE: NOT ISOLATED For additional information, please refer to http://education.Ongo/faq/URO538 (This link is being provided for informational/ educational purposes only.) REPORT COMMENT: FASTING:NO COLLECTION KIT GIVEN TO PATIENT. PATIENT ADVISED TO RETURN. Test Performed at: [facility] [address] [place] [address] [place] ??[phone] [employer] STOOL SPECIMEN / Unknown 02/13/2019 2:59 PM CDT 02/14/2019 2:45 AM CDT Adilene Templeton MD LAB - MICROBIOLOG Y ORDERABLES Performing Organization Address [facility] de Phone Number [facility] [id number] [place], [place] [id number] * CALPROTECTIN FECAL (02/13/2019 2:59 PM CDT) Calprotectin Fecal <15.6 mcg/g [facility] Comment: <15.625 - 50 mcg/g Normal >50 - 120 mcg/g ?Borderline >120 mcg/g ? Abnormal Calprotectin in Crohn's disease and ulcerative colitis can be five to several thousand times above the reference population (50 mcg/g or less). Levels are usually 50 mcg/g or less in healthy patients and with irritable bowel syndrome. Repeat testing in 4-6 weeks is suggested for borderline values. Test Performed at: [facility] [address] [place], [place] ??[address] CHAD PORTILLO MD,PHD,FRANK 02/13/2019 2:59 PM CDT 02/14/2019 2:45 AM CDT Adilene Templeton MD LAB - BODY FLUID ORDERABLES Performing Organization Address [facility] de Phone Number [facility] [address] [place] [address] * PH FECES (02/13/2019 2:59 PM CDT) pH Feces 7.01 5.92 - 8.00 pH units [facility] Comment: Test Performed at: [facility] [facility] [address] [place], [place] ??[address] PRISCILLA ELY MD,PHD Stool STOOL SPECIMEN / Unknown 02/13/2019 2:59 PM CDT 02/14/2019 2:45 AM CDT Adilene Templeton MD LAB - BODY FLUID ORDERABLES Performing Organization Address [facility] de Phone Number [facility] [address] [place] [address] * PANCREATIC ELASTASE FECES (02/13/2019 2:59 PM CDT) Pancreatic Elastase 1 >500 mcg/g [facility] Comment: Adult and Pediatric Reference Ranges for ??Pancreatic Elastase-1: ? Normal: ?>200 mcg/g Moderate Pancreatic ?Insufficiency: ?? 100-200 mcg/g ??Severe Pancreatic ?Insufficiency: ?<100 mcg/g Elastase-1 (E-1) assay results are expressed in mcg/g, which represent mcg E1/g feces. It is not necessary to interrupt enzyme substitution therapy. REPORT COMMENT: FASTING:NO COLLECTION KIT GIVEN TO PATIENT. PATIENT ADVISED TO RETURN. Test Performed at: [facility] [address] [place], [place] ??[address] CHAD PORTILLO MD,PHD,FRANK Stool STOOL SPECIMEN / Unknown 02/13/2019 2:59 PM CDT 02/14/2019 1:59 AM CDT Adilene Templeton MD LAB - BODY FLUID ORDERABLES Performing Organization Address [facility] de Phone Number [facility] [address] [place] [address] * IRON + TIBC + FERRITIN (02/10/2019 12:55 PM CDT) Iron 63 40 - 190 mcg/dL [facility] TIBC 329 250 - 450 mcg/dL (calc) [facility] % Saturation 19 11 - 50 % (calc) [facility] Ferritin 108 10 - 154 ng/mL [facility] Comment: Test Performed at: [facility] [address] [place], [place] ??[address] JOAN MA DO,MPH Blood BLOOD SPECIMEN / Unknown 02/10/2019 12:55 PM CDT 02/10/2019 1:06 PM CDT Adilene Templeton MD LAB - CHEMISTRY O RDERABLES Performing Organization Address [facility] de Phone Number [facility] [address] [place] [address] * HLA TYPING CELIAC DISEASE (02/10/2019 12:55 PM CDT) Interpretation see note [facility] Comment: The patient does not have the HLA-DQ variants associated with celiac disease. More than 97% of celiac patients carry either HLA-DQ2(DQA1*05/DQB1*02) or HLA-DQ8(DQA1*03/DQB1*0302) or both. Genetic counseling as needed. HLA-DQ2 Negative [facility] HLA-DQB Negative [facility] HLA-DQA1 01 [facility] HLA-DQA1 01 [facility] HLA-DQB1 0602 [facility] HLA-DQB1 0603 [facility] Results Reviewed By see note [facility] Comment: Sesar Palacio, Ph.D.,[facility] Forest Resource Specialist, Molecular Genetics ? Typing performed by PCR and hybridization with sequence specific oligonucleotide probes (SSO) using the FDA-cleared LABType(R) SSO Kit. Test Performed at: [facility]/[address] ??[phone] PRISCILLA ELY MD,PHD Blood BLOOD SPECIMEN / Unknown 02/10/2019 12:55 PM CDT 02/10/2019 1:06 PM CDT Adilene Templeton MD LAB - SEROLOGY OR DERABLES Performing Organization Address [facility] de Phone Number [facility] [address] [place] [address] * TISSUE TRANSGLUTAMINASE AB IGA (02/10/2019 12:55 PM CDT) TTG Antibody IgA 1 <4 U/mL [facility] Comment: ?Value ??Interpretation ?<4 U/mL: No Antibody Detected ? >or=4 U/mL: Antibody Detected Test Performed at: [facility] [address] [place], [place] ??[address] PRISCILLA ELY MD,PHD Blood BLOOD SPECIMEN / Unknown 02/10/2019 12:55 PM CDT 02/10/2019 1:06 PM CDT Adilene Templeton MD LAB - SEROLOGY OR DERABLES Performing Organization Address [facility] de Phone Number [address] [address] * (ABNORMAL) VITAMIN D 1,25 DIHYDROXY (02/10/2019 12:55 PM CDT) Vitamin D Total 79(H) 18 - 72 pg/mL [facility] Vitamin D3, 1,25 Dihydroxy 79 pg/mL [facility] Vitamin D, 25 Hydroxy <8 pg/mL [facility] Comment: ??Vitamin D3, 1,25(OH) indicates both endogenous ??production and supplementation. ??Vitamin D2, 1,25(OH)2 is an indicator of exogenous ??sources, such as diet or supplementation. ??Interpretation and therapy are based on measurement ??of Vitamin D, 1,25 (OH)2, Total. This test was developed and its analytical performance characteristics have been determined by [facility]. It has not been cleared or approved by the US Food and Drug Administration. This assay has been validated pursuant to the CLIA regulations and is used for clinical purposes. REPORT COMMENT: FASTING:NO COLLECTION KIT GIVEN TO PATIENT. PATIENT ADVISED TO RETURN. Test Performed at: [facility] [address] [place], [place] ??[address] AZEEM ANDRE MD,PHD Blood BLOOD SPECIMEN / Unknown 02/10/2019 12:55 PM CDT 02/10/2019 1:06 PM CDT Adilene Templeton MD LAB - CHEMISTRY O RDERABLES Performing Organization Address [facility] Co de Phone Number [address] [address] * ERYTHROCYTE SEDIMENTATION RATE (02/10/2019 12:55 PM CDT) Pathologist [facility] Erythrocyte Sedimentation Rate Westergren 2 < OR = 20 mm/h [facility] Comment: Test Performed at: [facility] [address] [place], [place] ??[address] JOAN MA DO,MPH 02/10/2019 12:5 5 PM CDT 02/10/2019 1:06 PM CDT Adilene Templeton MD LAB - HEMATOLOGY ORDERABLES [facility] [address] [place] [address] * CBC WITH DIFFERENTIAL (02/10/2019 12:55 PM CDT) Pathologist [facility] [place] White Blood Cell Count 5.8 3.8 - 10.8 Thousand/u L [facility] RBC 4.80 3.80 - 5.10 Million/uL [facility] Hemoglobin 13.6 11.7 - 15.5 g/dL [facility] Hematocrit 42.1 35.0 - 45.0 % [facility] MCV 87.7 80.0 - 100.0 fL [facility] MCH 28.3 27.0 - 33.0 pg [facility] MCHC 32.3 32.0 - 36.0 g/dL [facility] RDW 12.5 11.0 - 15.0 % [facility] Platelet Count 277 140 - 400 Thousand/u L [facility] MPV 10.1 7.5 - 12.5 fL [facility] Neutrophil Absolute 3341 1500 - 7800 cells/uL [facility] Lymphocytes Absolute 1960 850 - 3900 cells/uL [facility] Absolute Monocytes 383 200 - 950 cells/uL [facility] Eosinophils Absolute 99 15 - 500 cells/uL [facility] Basophils Absolute 17 0 - 200 cells/uL [facility] Granulocytes % 57.6 % [facility] Lymphocytes % 33.8 % [facility] Monocytes % 6.6 % [facility] Eosinophils % 1.7 % [facility] Basophils % 0.3 % [facility] Comment: Test Performed at: [facility] [address] [place], [place] ??[address] JOAN MA DO,MPH Blood BLOOD SPECIMEN / Unknown 02/10/2019 12:55 PM CDT 02/10/2019 1:06 PM CDT Adilene Templeton MD LAB - HEMATOLOGY ORDERABLES Performing Organization Address City/[facility]/ZIP Co de Phone Number [facility] [address] [place] [address] * COMPREHENSIVE METABOLIC PANEL (02/10/2019 12:55 PM CDT) Glucose 92 65 - 139 mg/dL [facility] Comment: ? Non-fasting reference interval BUN 16 7 - 25 mg/dL [facility] Creatinine 0.62 0.50 - 1.10 mg/dL [facility] eGFR by MDRD 114 > OR = 60 mL/min/1. 73m2 [facility] eGFR by MDRD 132 > OR = 60 mL/min/1. 73m2 [facility] BUN/Creatinine Ratio NOT APPLICABLE 6 - 22 (calc) [facility] Sodium 138 135 - 146 mmol/L [facility] Potassium 4.3 3.5 - 5.3 mmol/L [facility] Chloride 104 98 - 110 mmol/L [facility] CO2 26 20 - 32 mmol/L [facility] Calcium 9.1 8.6 - 10.2 mg/dL [facility] Protein Total 6.6 6.1 - 8.1 g/dL [facility] Albumin 4.1 3.6 - 5.1 g/dL [facility] Globulin Total 2.5 1.9 - 3.7 g/dL (calc) [facility] Albumin/Globuli n Ratio 1.6 1.0 - 2.5 (calc) [facility] Bilirubin Total 0.3 0.2 - 1.2 mg/dL [facility] Alkaline Phosphatase 61 33 - 115 U/L [facility] AST 17 10 - 30 U/L [facility] ALT 27 6 - 29 U/L [facility] Comment: Test Performed at: [facility] [address] ??[phone] JOAN MA DO,MPH Blood BLOOD SPECIMEN / Unknown 02/10/2019 12:55 PM CDT 02/10/2019 1:06 PM CDT Adilene Templeton MD LAB - CHEMISTRY O RDERABLES Performing Organization Address City/[facility]/ZIP Co de Phone Number [facility] [address] [place] [address] * VITAMIN B12 (02/10/2019 12:55 PM CDT) Pathologist [facility] [place] Vitamin B12 521 200 - 1100 pg/mL [facility] Comment: Test Performed at: [facility] [place] [address] [place], [place] ??[address] JOAN MA DO,MPH Blood BLOOD SPECIMEN / Unknown 02/10/2019 12:55 PM CDT 02/10/2019 1:06 PM CDT Adilene Templeton MD LAB - CHEMISTRY O [place]RI[place] Performing Organization Address [facility] de Phone Number [facility] [address] [place] [phone] * TSH (02/10/2019 12:55 PM CDT) TSH 1.52 mIU/L [facility] Comment: ?Reference Range ?> or = 20 Years ??0.40-4.50 ? Ranges ?First trimester ?0.26-2.66 ?Second trimester ?? 0.55-2.73 ?Third trimester ?0.43-2.91 Test Performed at: [facility] [place] [id number] [place], [place] ??[address] JOAN MA DO,MPH Blood BLOOD SPECIMEN / Unknown 02/10/2019 12:55 PM CDT 02/10/2019 1:06 PM CDT Adilene Templeton MD LAB - CHEMISTRY O [place]RIKA Performing Organization Address [facility] de Phone Number [facility] [address] [place] [address] * URINALYSIS REFLEX TO MICROSCOPIC NO CULTURE (09/20/2018 9:00 PM EXERCISE PHYSIOLOGIST) Color UA YELLOW YELLOW [facility] Appearance CLEAR CLEAR [facility] Specific [place] UA 1.018 1.001 - 1.035 [facility] pH UA 7.0 5.0 - 8.0 [facility] Glucose UA NEGATIVE NEGATIVE [facility] Bilirubin UA NEGATIVE NEGATIVE [facility] Ketone UA NEGATIVE NEGATIVE [facility] Blood UA NEGATIVE NEGATIVE [facility] Protein UA NEGATIVE NEGATIVE [facility] Nitrite UA NEGATIVE NEGATIVE [facility] Leukocyte UA NEGATIVE NEGATIVE [facility] Comment: Test Performed at: [facility] [address] ??[phone] JOAN MA DO,MPH 09/20/2018 2:3 3 AM EXERCISE PHYSIOLOGIST Hannah Sharma APRN-CAN PILER LAB - URI NALYSIS ORDERABLES Performing Organization Address [facility] de Phone Number [address] [address] * CULTURE URINE (09/20/2018 9:00 PM EXERCISE PHYSIOLOGIST) Only the most recent of3 resultswithin the time period is included. [facility] Culture [facility] Comment: ??CULTURE, URINE, ROUTINE ?MICRO NUMBER: ?[id number] ??TEST STATUS: ? FINAL ??SPECIMEN SOURCE: ?? URINE,CATH STRAIGHT ??SPECIMEN QUALITY: ??ADEQUATE ??RESULT: ?No Growth NO COLLECTION DATE RECEIVED. WE HAVE USED THE DATE THE SPECIMEN WAS RECEIVED BY THIS LABORATORY THE COLLECTION DATE. IF THIS IS INCORRECT, PLEASE CONTACT CLIENT SERVICES. PHONE NUMBER: [phone] Test Performed at: [facility] ??[address] POOJA MATTHEWS MD Urine URINE SPECIMEN OBTAINED BY SINGLE CATHETERIZATION OF URINARY BLADDER / Unknown 09/20/2018 2:33 AM EXERCISE PHYSIOLOGIST Hannah Sharma APRN-CAN PILER LAB - RICHELLE ROBIOLOGY ORDERABLES Performing Organization Address [facility] de Phone Number [address] [address] * CHLAMYDIA + GC AMPLIFIED PROBE (09/20/2018 2:00 PM EXERCISE PHYSIOLOGIST) Only the most recent of2 resultswithin the time period is included. [facility] Chlamydia trachomatis RNA NOT DETECTED NOT DETECTED [facility] GC RNA NOT DETECTED NOT DETECTED [facility] Please Note [facility] Comment: This test was performed using the APTIMA COMBO2 Assay ([employer] The analytical performance characteristics of this assay, when used to test SurePath specimens have been determined by Topic. ?? NO COLLECTION DATE RECEIVED. WE HAVE USED THE DATE THE SPECIMEN WAS RECEIVED BY THIS LABORATORY THE COLLECTION DATE. IF THIS IS INCORRECT, PLEASE CONTACT CLIENT SERVICES. PHONE NUMBER: [phone] Test Performed at: [facility] [address] [place], [place] ??[address] JOAN MA DO,MPH Microbiology URINE / Unknown 018 5:03 AM EXERCISE PHYSIOLOGIST Hannah SMITH LAB - RICHELLE ROBIOLOGY ORDERABLES [facility] [address] [place] [address] * URINALYSIS AUTO - POINT OF CARE (AMB) SLU (09/19/2018 4:02 PM EXERCISE PHYSIOLOGIST) Glucose UA neg Bilirubin UA POCT neg Ketones UA POCT neg Specific [place] UA 1.015 Blood Urine POCT neg pH UA 6.5 Protein UA neg Urobilinogen UA neg Nitrite UA neg WBC UA neg Urine URINE / Unknown 09/19/2018 4 :02 PM EXERCISE PHYSIOLOGIST Elsie SMITH LAB - POINT O F CARE ORDERABLES * VA INSERT NON-INDWELLING BLADDER (09/19/2018 1:20 PM EXERCISE PHYSIOLOGIST) Narrative Hannah Sharma APRN-CNP - 09/19/2018 1:20 PM EXERCISE PHYSIOLOGIST Hannah Sharma APRN-CNP ? 09/19/2018 ??1:20 PM Urethral Catheterization Procedure Note: Urethra cleaned well with Betadine. Straight Fr 8 catheter inserted. Post void residual = 80 ml. Hannah SMITH PROCEDURE /MINOR SURGICAL ORDERABLES * URINALYSIS - POINT OF CARE (09/19/2018) Clarity UA POCT clear Color UA POCT light yellow Leukocyte UA neg Negative Nitrite UA POCT neg Negative Urobilinogen UA 0.1 0.1 - 1.0 Protein UA POCT neg Negative pH UA 7.0 5.0 - 8.0 pH units Blood UA trace Negative Specific [place] UA POCT 1.015 1.002 - 1.030 Ketone UA neg Negative Bilirubin UA POCT neg Negative Glucose UA neg Negative Urine URINE / Unknown 09/19/2018 Hannah Almeida Princessroberta HOOKER LASTER-CAN PILER LAB - POI NT OF CARE ORDERABLES * IMAGING/RADIOLOGY/XRAY RESULTS ORDER (09/05/2018 7:09 AM EXERCISE PHYSIOLOGIST) Only the most recent of2 resultswithin the time period is included. Anatomical Region Laterality Modality Other Narrative 09/05/2018 7:09 AM EXERCISE PHYSIOLOGIST Ordered by an unspecified provider. Scanned Document IMAGING * VA SONO EXAM, TRANSVAGINAL (08/19/2018 10:46 AM EXERCISE PHYSIOLOGIST) Narrative Brenna Osorio - 08/19/2018 10:46 AM EXERCISE PHYSIOLOGIST Brenna Osorio ? 08/19/2018 10:46 AM Ready in [employer]. Brodie Wagner MD PROCEDURE/MINOR LAZAR RGICAL ORDERABLES * DERMATOPATH TECHNICAL REPORT (08/11/2018 12:00 AM CDT) Case Report Dermatopathology Report ? Case: [id number] ? Authorizing Provider: ??Shavonne Anders MD ?Collected: ? 08/11/2018 12:00 AM ? Pathologist: ? Nell Doty MD ? Received: ?08/12/2018 06:56 AM ? Specimen: ?Skin, back ? 10:38 AM CDT DERMATOPATHOLOGY LABORATORY Clinical History R/O cyst, irritated, painful. 10:38 AM T DERMATOPATHOLOGY LABORATORY Gross Description Specimen A: Received is one formalin filled container labeled with the patient's name and designated back. The specimen consists of a [id number] excision. The specimen is serially sectioned and a commercial pest control representative section is submitted in cassette 1. Jar 1. [facility] Dermatopathology Laboratory performed the technical component only. 10:38 AM T DERMATOPATHOLOGY LABORATORY Embedded Images 10:38 AM [facility] DERMATOPATHOLOGY LABORATORY DISCLAIMER An external and internal positive and negative controls are appropriate for the histochemical, immunohistochemical and immunofluorescence stain(s) in this case (if any), except where stated explicitly. The performance characteristics of the stain(s) cited in this report were developed and its performance characteristic determined by the Dermatopathology Laboratory at [facility]. These tests need not be, and therefore are not, approved by the [place] Food and Drug Administration. The tests are used for clinical purposes. 10:38 AM [facility] DERMATOPATHOLOGY LABORATORY Pathology/Cytolog y TISSUE SPECIMEN FROM SKIN / Unknown 08/11/2018 08/12/2018 6:56 AM CDT Shavonne Anders MD LAB - PATHOLOGY/CYTO LOGY ORDERABLES DERMATOPATHOLOGY LABORATORY [facility] - Department of Dermatology [address] [place] [address], [facility] [phone] Care Teams Cancer Registrar Relationship Specialty Start Date End Date Renetta Vasquez MD [address] [facility] [place] [address] PCP - General 12/29/19
--- OUTSIDE RECORDS SUMMARY | 2024-11-14 17:40 | XMS_ITS | Clinical Summary ---
Author Organization [facility] Address [address] [place] [address] Care Team Providers Care Deliver Driver Name Role Phone None, Provider MD Primary Care Provider Unavaila ble Medications No known medications Social History Tobacco Use Types Packs/Day Years Used Date Smoking Tobacco: Never Assessed Comments No Sex and Gender Information Value Date Recorded Sex Assigned at Female 04/05/2024 1:04 PM CDT Legal Sex Female 10:28 AM CDT Gender Identity Female 04/05/2024 1:04 PM CDT Sexual Orientation Straight 04/05/2024 1: 04 PM CDT Last Filed Vital Signs Vital Sign Reading Time Taken Comments Blood Pressure 159/84 04/05/2024 12:38 PM CDT Pulse 89 04/05/2024 12:38 PM CDT Temperature 36.7 ??C (98 ??F) 04/05/2024 10:44 AM CDT Respiratory Rate 18 04/05/2024 12:38 PM CDT Oxygen Saturation 100% 04/05/2024 12:38 PM CDT Inhaled Oxygen Concentration - - Weight 116.1 kg (256 lb) 04/05/2024 10:44 AM CDT Height 165.1 cm (5' 5 ) 04/05/2024 10:44 AM CDT Body Mass Index 42.6 04/05/2024 10:44 AM CDT Plan of Treatment Health Maintenance Due Date Last Done Comments Cervical Cancer Screening Pap Smear (Age 30 to 64) Every 3 Years 1979 Colorectal Cancer Screening Colonoscopy (10 Years) 1979 Annual Physical 1982 Hepatitis C 1997 DTaP, Tdap and Td Vaccines (1 - Tdap) 1998 Hepatitis B Vaccines (1 of 3 - 19+ 3-dose series) 1998 Cervical Cancer Screening Pap with HPV Testing (Age 30 to 64) Every 5 Years 2009 Cervical Cancer Screening with HPV 2009 Mammogram Screening 2019 COVID-19 Vaccine ( season) 2024 08/30/2022, 11/05/2021, 12/31/2020, Additional history exists Influenza Adult (#1) 2024 09/27/2023, 08/15/2022, 10/14/2021, Additional history exists HPV Vaccines Aged Out No longer eligi ble based on patient's age to complete this topic Meningococcal B Vaccine Aged Out No l onger eligible based on patient's age to complete this topic Meningococcal Vaccine Aged Out No annie betsy eligible based on patient's age to complete this topic Pneumococcal Vaccine: Pediatrics (0 to 5 Years) and At-Risk Patients (6 to 64 Years) Aged Out No longer eligible based on patient's age to complete this topic RSV Immunizations Under 20 Months Aged Out No longer eligible based on patient's age to complete this topic Insurance Care Teams Deliver Driver Relationship Specialty Start Date End Date None, Provider, PCP - General UNKNOWN PHYSICIAN SPECIALTY 04/05/24
--- OUTSIDE RECORDS SUMMARY | 2024-11-14 17:40 | XMS_ITS | Encounter Summary ---
Author Organization [facility] Address [address] [place] [place] [address] Care Team Providers Care Pleater Name Role Phone Renetta Vasquez MD Primary Care Provider Un available Encounter Details Date Type Department Care Team (Late st Contact Info) Description 09/05/2024 Lab Requisition [facility] - DermPath Lab [address] [facility] [facility] [place] [id number] Carla Mcdaniels DO [address] [facility] [address] [place] [address] Social History Tobacco Use Types Packs/Day Years [...] Diagnosis Comments DERMATOPATHOLOGY Routine 09/05/2024 8:13 AM SLATE CUTTER documented in this encounter Results * DERMATOPATHOLOGY (09/05/2024 8:13 AM SLATE CUTTER) Case Report Dermatopathology Report ? Case: [id number] ? Authorizing Provider: ??Carla Mcdaniels, DO ?? Collected: ? 09/05/2024 08:13 AM ? Ordering Location: ? [facility] - ??Received: ?09/05/2024 12:38 PM ? DermPath Lab ? Pathologist: ? Lelo Reid MD ? Specimen: ?Skin, left chin ? 4 11:11 AM [facility] DERMATOPATHOLOGY LABORATORY Final Diagnosis Specimen A. SKIN, left chin: BENIGN VERRUCOUS KERATOSIS (L82.1) (see microscopic description and comment) 4 11:11 AM [facility] DERMATOPATHOLOGY LABORATORY Clinical History R/O NMSC 4 11:11 AM [facility] DERMATOPATHOLOGY LABORATORY Gross Description Specimen A: Received is one formalin filled container labeled with the patient's name and designated left chin. The specimen consists of a shave biopsy measuring 3x3x1 mm. Jar 0. 4 11:11 AM [facility] DERMATOPATHOLOGY LABORATORY Microscopic Description Specimen A. SKIN, left chin: Sections show hyperkeratosis, papillomatosis, hypergranulosis, and acanthosis. These histological findings can be seen in a verruca vulgaris or a seborrheic keratosis. Additional deeper sections were obtained and reviewed. COMMENT: Given the superficial nature of the biopsy specimen, a deeper dermal process cannot be excluded. 4 11:11 AM [facility] DERMATOPATHOLOGY LABORATORY Disclaimer An external and internal positive and negative controls are appropriate for the histochemical, immunohistochemical and immunofluorescence stain(s) in this case (if any), except where stated explicitly. The performance characteristics of the stain(s) cited in this report were developed and its performance characteristic determined by the Dermatopathology Laboratory at [facility], directed by Dr. Kelly Crane. These tests need not be, and therefore are not, approved by the [place] Food and Drug Administration. The tests are used for clinical purposes. Billing Codes Specimen Charges Stain Charges 82596 1 4 11:11 AM [facility] DERMATOPATHOLOGY LABORATORY Embedded Images 4 11:11 AM [facility] DERMATOPATHOLOGY LABORATORY Pathology/Cytolo gy TISSUE SPECIMEN FROM SKIN / Unknown 09/05/2024 8:13 AM SLATE CUTTER 09/05/2024 12:38 PM SLATE CUTTER Carla Mcdaniels DO LAB - PATHOLOGY/C YTOLOGY ORDERABLES DERMATOPATHOLOGY LABORATORY [facility] - Department of Dermatology [facility] Medicine [address] [place] [address], [address] [phone] documented in this encounter Visit Diagnoses Not on filedocumented in this encounter Care Teams Pleater Relationship Specialty Start Date End Date Renetta Vasquez MD [address] [place] [place] [address] PCP - General 12/29/19 documented as of this encounter
--- OUTSIDE RECORDS SUMMARY | 2024-11-14 17:41 | XMS_ITS | Clinical Summary ---
Author Organization [facility] Address [address] [place] [address] Care Team Providers Care Esthetician And Manager Medical Spa Name Role Phone Gloria Urbina MD Primary Care Provider Allergies Active Allergy Reactions Criticality Noted Date Comments Adhesive Rash Medium 04/03/2019 Amoxicillin Diarrhea,Itching Low 03/31/2024 Aspirin Angioedema,Swelling High 08/03/2018 Ciprofloxacin Vomiting Low 04/03/2019 Clarithromycin Nausea only,Nausea And Vomiting Low 08/03/2018 Erythromycin Nausea only,Nausea & Vomiting,Nausea And Vomiting Low 08/03/2018 Gluten Unknown 07/22/2020 Ibuprofen Angioedema,Swelling ,Swollen tongue High 08/03/2018 Midazolam Other (See comments) Low 08/03/2018 hallucinations Other reaction(s): Other hallucinations Naproxen Angioedema,Swelling High 08/03/2018 Nsaids (Non-Steroidal Anti-Inflammatory Drug) Unknown 07/22/2020 Sulfamethoxazole-Trimetho prim Unknown 06/13/2020 Tramadol Anxiety,Delusions,H allucinations,Other (See comments) Medium 08/03/2018 hallucinations Other reaction(s): Other hallucinations Medications montelukast (SINGULAIR) 10 mg tablet Take 1 tablet (10 mg total) by mouth every 30 (thirty) days 08/31/20 18 Active cholecalcifero l (VITAMIN D-3) 50,000 unit capsule Take 1 capsule (50,000 Units total) by mouth once a week 12/16/19 23 Active cyclobenzaprin e (FLEXERIL) 10 mg tablet cyclobenzaprine 10 mg tablet TAKE 1 TABLET BY MOUTH THREE TIMES DAILY NEEDED FOR MUSCLE SPASM Active moxifloxacin (VIGAMOX) 0.5 % ophthalmic solution moxifloxacin 0.5 % eye drops INSTILL 1 DROP IN LEFT EYE FOUR TIMES DAILY. Active [id number] g-Bwbbzutl-lbh al 27 mg iron-1.13 mg-581.92 mg capsule Take by mouth Active gabapentin (NEURONTIN) 100 mg capsule Take 1 capsule (100 mg total) by mouth 3 (three) times a day 09/08/20 24 Active fluticasone propionate (FLONASE) 50 mcg/actuation nasal spray SHAKE LIQUID AND USE 1 SPRAY IN EACH NOSTRIL TWICE DAILY Activ e cetirizine (ZyrTEC) 10 mg tablet Take 1 tablet (10 mg total) by mouth daily Active famotidine (PEPCID) 20 mg tablet Take 1 tablet (20 mg total) by mouth 2 (two) times a day as needed for heartburn Active metFORMIN XR (GLUCOPHAGE XR) 500 mg 24 hr tablet Take 1 tablet (500 mg total) by mouth 2 (two) times a day 09/14/20 24 Active rosuvastatin (CRESTOR) 10 mg tablet Take 1 tablet (10 mg total) by mouth daily 90 tablet 11/01/19 25 026 Active rosuvastatin (CRESTOR) 20 mg tablet Take 0.5 tablets (10 mg total) by mouth daily 09/13/20 24 025 Discontin ued(Reord er) rosuvastatin (CRESTOR) 20 mg tablet Take 0.5 tablets (10 mg total) by mouth daily 45 tablet 11/01/19 25 025 Discontin ued(Patie nt Reported) Active Problems Problem Noted Date Diagnosed Date Hernia of abdominal cavity 07/28/202201/25 Scoliosis 07/28/2022 01/25/2023 Breast cancer screening, high risk patient 02/24 History of urinary stone 11/20/2019 023 Leukocytosis 11/20/2019 01/25/2023 Celiac disease 09/19/2018 01/25/2023 H/O hernia repair 09/19/2018 01/25/2023 Hematuria 09/19/2018 01/25/2023 Intestinal cramps 09/19/2018 01/25/2023 Irritable bowel syndrome with diarrhea 8 01/25/2023 Stress incontinence in female 09/19/2018 Dyschezia 09/16/2018 01/25/2023 Dysmenorrhea 09/16/2018 01/25/2023 Dysuria 09/16/2018 01/25/2023 Renal stones 09/16/2018 01/25/2023 Asymptomatic microscopic hematuria 07/07/2018 01/25/2023 Endometriosis 07/07/2018 01/25/2023 test negative 07/07/2018 01/26/20 23 Urinary tract infectious disease 07/07/2018 01/25/2023 Deep dyspareunia 06/20/2018 01/25/2023 Pelvic and perineal pain 06/20/2018 023 Abnormal finding on mammography 07/28/2017 01/25/[address] of the abdomen 03/25/201601/25 Seasonal allergic rhinitis 03/25/201601/25 Encounters Date Type Department Care Team Description 11/09/2024 11:58 AM SESSIONS CLERK - 11/09/2024 11:59 PM SESSIONS CLERK Hospital Encounter [facility] - Breast Imaging [address] [place] [address] [address] [place] [address] Abnormality of left breast on screening mammography Discharge Disposition: Discharge to home or self care 11/01/[address] [facility] Cardiology [address] [place] [phone] Amy Sanchez MA 10/31/[address] [facility] Cardiology [address] [place] [phone] Juan Henley MD Med Refill 10/31/2024 Telephone [facility] [address] [place] [address] 8 [place] [phone] Kristina Ngo CMA 10/27/2024 11:30 AM SESSIONS CLERK Office Visit [facility] [address] [place] [address] 8 [place] [address] Jessica Odonnell NP At high risk for breast cancer (Primary Dx); Family history of breast cancer; Dense breast tissue 10/27/2024 10:49 AM SESSIONS CLERK - 10/27/2024 11:59 PM SESSIONS CLERK Hospital Encounter [facility] - Breast Imaging [address] [facility] Floor 8 [place] [address] Breast cancer screening by mammogram Discharge Disposition: Discharge to home or self care 09/19/2024 9:45 AM SESSIONS CLERK Office Visit 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); Inflammatory arthropathy; Need for lipid screening 09/19/2024 Telephone [facility] Cardiology [address] [place] [phone] Juan Henley MD 09/15/2024 Orders Only [facility] [address] [place] [address] Juan Henley MD 09/13/2024 Orders Only [facility] [address] [facility] [address] [place] [phone] Juan Henley MD 09/12/2024 Orders Only [facility] Information [facility] [address] [place] [address] Juan Henley MD 08/24/2024 Telephone [facility] [address] [place] [address] 8 [place] [phone] Karla Ferrer MD PhD Medical Question/Miscellaneo us 08/23/2024 Telephone [facility] [address] [place] [address] 8 [place] [address] Grace Klein [facility] 08/23/2024 Telephone [facility] [address] [place] [address] 8 [place] [address] Grace Klein [facility] 08/22/2024 Telephone [facility] [address] [place] [address] 8 [place] [phone] Karla Ferrer MD PhD Medical Question/Miscellaneo us 08/21/2024 Telephone [facility] [address] [place] [address] 8 [place] [phone] Karla Ferrer MD PhD Medical Question/Miscellaneo us 08/17/2024 Telephone [facility] Floor 8 [place] [address] Aft, Karla Agudelo MD PhD Medical Question/Miscellaneo us from Last 3 Months Immunizations Name Administration Dates Next Due Flucelvax Influenza Quad 06/27/2019 Influenza, Quadrivalent, Spl it, Preservative Free, Intramuscular 09/27/2023,06/25/2020,07/17/2018 Influenza, Trivalent, Cell C ulture-based MDCK, Preservative Free, Antibiotic Free, Intramuscular 06/27/2019 Influenza, Trivalent, IM (MDV) 07/22/2017,2015,07/18/2015 Influenza, Trivalent, Preser vative Free, Intramuscular 07/16/2016 Surgical History Surgery Date Site/Laterality Comments BREAST BIOPSY SPINAL FUSION SECTION 03/11/2008 - 04/09/2008 HERNIA REPAIR LITHOTRIPSY DILATION AND CURETTAGE OF UTERUS ABLATION ABDOMINOPLASTY BREAST BIOPSY 08/16/2020 Left Medical History Medical History Date Comments Arthritis Anemia Anxiety Depression Kidney stone Migraines Obesity Pneumonia Allergic rhinitis Urinary tract infection Chest pain Family History Medical History Relation Name Comments Heart attack Father Skin cancer Father Family history of skin cancer - (Added by TW Conv) Skin cancer Maternal Grandfather Breast cancer Mother Adenocarcinoma of breast - (Added by TW Conv) Skin cancer Mother's Brother Relation Name Status Comments Father Alive Maternal Grandfather Mother Alive Mother's Brother Social History Tobacco Use Types Packs/Day Years Used Date Smoking Tobacco: Never Tobacco Cessation:Counseling Given: Not Answered Comments No Sex and Gender Information Value Date Recorded Sex Assigned at Not on file Legal Sex Female 1:01 PM CDT Gender Identity Female 07/22/2020 9:42 AM CDT Sexual Orientation Straight 07/22/2020 9: 42 AM CDT Obstetrics History Last Filed Vital Signs Vital Sign Reading Time Taken Comments Blood Pressure 126/80 09/19/2024 9:55 AM SESSIONS CLERK Pulse 93 09/19/2024 9:55 AM SESSIONS CLERK Temperature - - Respiratory Rate - - Oxygen Saturation 97% 09/19/2024 9:55 AM SESSIONS CLERK Inhaled Oxygen Concentration - - Weight 118.8 kg (261 lb 14.5 oz) 01/17/ 2025 10:58 AM SESSIONS CLERK Height 165.1 cm (5' 5 ) 10/27/2024 10:5 8 AM SESSIONS CLERK Body Mass Index 43.58 10/27/2024 10:58 AM SESSIONS CLERK Plan of Treatment Health Maintenance Due Date Last Done Comments Cervical Cancer Screening 1979 Colon Cancer Screening-Colonoscopy 1979 Depression Screening 1979 Hepatitis C Screening 1979 DTaP/Tdap/Td Vaccine (1 - Tdap) 1990 Hepatitis B Screening 1997 Regular Well Visit/Exam 18-64 1997 Covid-19 Vaccine (2 - season) 2024 11/05/2021 Influenza Vaccine (#1) 2024 , 06/25/2020, 06/27/2019, Additional history exists Breast Cancer Screening-Mammogram 10/27/2025 10/27/2024, 10/18/2023, 07/27/2022, Additional history exists HPV Vaccines Aged Out No longer eligi ble based on patient's age to complete this topic Pneumococcal vaccine <65 Aged Out No longer eligible based on patient's age to complete this topic Medical Devices Implanted Type Area [employer] Device Identifier Shelf Expiration Date Model / Serial / Lot Hernia Mesh Abdomen Lumbar Spine Fusion Instrumentation Implanted: 5 (Quantity not on file) Spine Lumbar Procedures Procedure Name Priority Date/Time Associated Diagnosis Comments DIAGNOSTIC MAMMOGRAM LEFT W MIRANDA Schedule Routine, Read Routine (OP Routine) 11/09/2024 12:47 PM SESSIONS CLERK Abnormality of left breast on screening mammography SCREENING MAMMOGRAM BILATERAL W MIRANDA Schedule Routine, Read Routine (OP Routine) 10/27/2024 11:28 AM SESSIONS CLERK Breast cancer screening by mammogram POCT LIPID PANEL Routine 09/19/2024 11:3 8 AM SESSIONS CLERK Need for lipid screening CARDIOLOGY DOCUMENT SCAN 09/15/2024 CARDIOLOGY DOCUMENT SCAN 09/12/2024 CARDIOLOGY DOCUMENT SCAN Routine 09/11/2024 11:17 AM SESSIONS CLERK from Last 3 Months Results * Diagnostic Mammogram Left W Miranda (11/09/2024 12:47 PM SESSIONS CLERK) Anatomical Region Laterality Modality Breast Left Mammography 11/09/2024 1:04 PM SESSIONS CLERK Impressions 11/09/2024 3:19 PM SESSIONS CLERK Grouped layering calcification in the upper central left breast, consistent with milk of calcium. OVERALL FINAL ASSESSMENT: BI-RADS Category 2: Benign. RECOMMENDATION: 1. Annual screening mammography is recommended. 2. Breast MRI should also be considered for supplemental imaging surveillance given elevated lifetime risk of breast cancer. Dictated by: Miri Dorantes MD The radiology attending physician has personally reviewed this study, and had reviewed and/or edited this written report and agrees with it. Electronically signed by: Diana Jeff M.D. Narrative 11/09/2024 3:19 PM SESSIONS CLERK EXAMINATION: LEFT UNILATERAL DIGITAL DIAGNOSTIC MAMMOGRAM AND DIGITAL BREAST TOMOSYNTHESIS HISTORY: 44-year-old female with elevated lifetime risk of breast cancer presenting for screening call back for left breast calcifications COMPARISON: Multiple priors, most recently 10/27/2024, 10/18/2023, 07/27/2022 TECHNIQUE: ?? Full field digital mammographic views of the LEFT breast were performed, including computer aided detection (CAD) and digital breast tomosynthesis (DBT). BREAST PARENCHYMAL COMPOSITION: The breasts are heterogeneously dense, which may obscure small masses. MAMMOGRAM FINDINGS: Previously characterized grouped calcifications within the central LEFT breast at mid depth layer on mediolateral view and are consistent with milk of calcium cysts. 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 ??There is no suspicious mass or architectural distortion. ?? Procedure Note Diana Jeff MD - 11/09/2024 EXAMINATION: LEFT UNILATERAL DIGITAL DIAGNOSTIC MAMMOGRAM AND DIGITAL BREAST TOMOSYNTHESIS HISTORY: 44-year-old female with elevated lifetime risk of breast cancer presenting for screening call back for left breast calcifications COMPARISON: Multiple priors, most recently 10/27/2024, 10/18/2023, 07/27/2022 TECHNIQUE: Full field digital mammographic views of the LEFT breast were performed, including computer aided detection (CAD) and digital breast tomosynthesis (DBT). BREAST PARENCHYMAL COMPOSITION: The breasts are heterogeneously dense, which may obscure small masses. MAMMOGRAM FINDINGS: Previously characterized grouped calcifications within the central LEFT breast at mid depth layer on mediolateral view and are consistent with milk of calcium cysts. 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 There is no suspicious mass or architectural distortion. IMPRESSION: Grouped layering calcification in the upper central left breast, consistent with milk of calcium. OVERALL FINAL ASSESSMENT: BI-RADS Category 2: Benign. RECOMMENDATION: 1. Annual screening mammography is recommended. 2. Breast MRI should also be considered for supplemental imaging surveillance given elevated lifetime risk of breast cancer. Dictated by: Miri Dorantes MD The radiology attending physician has personally reviewed this study, and had reviewed and/or edited this written report and agrees with it. Electronically signed by: Diana Jeff M.D. Jessica Odonnell NP IMG MAMMO PROCEDURES Final Result * Screening Mammogram Bilateral W Miranda (10/27/2024 11:28 AM SESSIONS CLERK) Anatomical Region Laterality Modality Breast Bilateral Mammography Narrative 10/30/2024 11:33 AM SESSIONS CLERK Mammogram Technique: Bilateral Digital Breast Tomosynthesis, Bilateral C-view 2D Screening mammogram. ??Views obtained: ??bilateral craniocaudal and bilateral mediolateral oblique. ??Computer Aided Detection was performed. Mammogram Findings: The present examination has been compared to prior imaging studies performed at [facility] on 02/24/2021, 07/30/2021, 07/27/2022 and 10/18/2023. The breasts are heterogeneously dense, which may obscure small masses. There are amorphous calcifications with grouped distribution in the middle central area of the left breast. There is no suspicious abnormality in the right breast. Impression: Calcifications in the left breast require additional evaluation. A diagnostic mammogram of the left breast is recommended at this time. OVERALL FINAL ASSESSMENT: BI-RADS CATEGORY 0: ??Incomplete: ??Need additional imaging evaluation. Procedure Note Rossi Warner MD - 10/30/2024 Mammogram Technique: Bilateral Digital Breast Tomosynthesis, Bilateral C-view 2D Screening mammogram. Views obtained: bilateral craniocaudal and bilateral mediolateral oblique. Computer Aided Detection was performed. Mammogram Findings: The present examination has been compared to prior imaging studies performed at [facility] on 02/24/2021, 07/30/2021,07/27/2022 and 10/18/2023. The breasts are heterogeneously dense, which may obscure small masses. There are amorphous calcifications with grouped distribution in themiddle central area of the left breast. There is no suspicious abnormality in the right breast. Impression: Calcifications in the left breast require additional evaluation. A diagnostic mammogram of the left breast is recommended at this time. OVERALL FINAL ASSESSMENT: BI-RADS CATEGORY 0: Incomplete: Need additional imaging evaluation. us Leah Zhao [employer] [employer] IMG MAMMO PROCEDURES Fin al Result * POCT lipid panel (09/19/2024 11:38 AM SESSIONS CLERK) Cholesterol, POC 117 mg/dL Comment:GLU = 131 HDL, POC 62 mg/dL Triglycerides, POC 144 mg/dL LDL Cholesterol POC 26 mg/dL Chol/HDL Ratio, POC 0.4 Non-HDL Cholesterol, POC 55 mg/dL Cholesterol Total, POC 117 mg/dL Capillary blood 09/19/2024 1 1:38 AM SESSIONS CLERK Result Jarad Henley MD POINT OF CARE TEST ORDERABLES Fi nal Result * Cardiology Document Scan (09/15/2024) Anatomical Region Laterality Modality Other Result Jarad Henley MD [facility] CARDIAC SERVICES PROCEDURES F inal Result * Cardiology Document Scan (09/12/2024) Anatomical Region Laterality Modality Other Result Jarad Henley MD CV CARDIAC SERVICES PROCEDURES E dited Result - Final * Cardiology Document Scan (09/11/2024 11:17 AM SESSIONS CLERK) Anatomical Region Laterality Modality Other Juan Henley MD CV CARDIAC SERVICES PROCEDURES F inal Result from Last 3 Months Insurance [employer] ACCESS CHOICE Member Subscriber Plan / Payer ( fective 2023-Present) Name:Kaylie Beck Member ID:[id number] Relation to Subscriber:Spouse Name:DAMON BECK Subscriber ID:[id number] Date of :1980 (Home) Address: [address] [place] [address] Payer ID:[id number] (NAIC) Type:[place] Address: [address] [place] [address] [facility] Care Teams Esthetician And Manager Medical Spa Relationship Specialty Start Date End Date Gloria Urbina MD [address] [facility] [address] [place] [address] PCP - General Family Practice 09/19/24
--- OUTSIDE RECORDS SUMMARY | 2024-11-14 17:42 | XMS_ITS | Encounter Summary ---
Author Organization [facility] Healthcare Address [address] [place] [address] Care Team Providers Care Call Center Recruiter Name Role Phone Cristina Navarro NP Primary Care Provider + Gloria Urbina MD Primary Care Provider Encounter Details Date Type Department Care Team (Late st Contact Info) Description 09/15/2024 Orders Only [facility] Health Information Management [address] [place] [address] Juan Henley MD [address] [address] Social History Tobacco Use Types Packs/Day Years Used Date Smoking Tobacco: Never Comments No Sex and Gender Information Value Date Recorded Sex Assigned at Not on file Legal Sex Female 1:01 PM CDT Gender Identity Female 07/22/2020 9:42 AM CDT Sexual Orientation Straight 07/22/2020 9: 42 AM CDT documented as of this encounter Plan of Treatment Not on file documented as of this encounter Procedures Procedure Name Priority Date/Time Associated Diagnosis Comments CARDIOLOGY DOCUMENT SCAN 09/15/2024 documented in this encounter Results * Cardiology Document Scan (09/15/2024) Anatomical Region Laterality Modality Other Juan Henley MD CV CARDIAC SERVICES PROCEDURES F inal Result documented in this encounter Visit Diagnoses Not on filedocumented in this encounter Care Teams Call Center Recruiter Relationship Specialty Start Date End Date Cristina Navarro NP [address] [facility] [address] [place] [id number] PCP - General Nurse Practitioner 12/03/23 09/18/24 Gloria Urbina MD [address] [place] [address] [address] [place] [phone] PCP - General Family Practice 09/19/24 documented as of this encounter
--- OUTSIDE RECORDS SUMMARY | 2024-11-14 17:42 | XMS_ITS | Referral Summary ---
Author Organization [facility] Healthcare Address [address] [place] [address] Care Team Providers Care Transcribing Machine Operator Name Role Phone Gloria Urbina MD Primary Care Provider Encounters Date Type Department Care Team Description 11/09/2024 11:58 AM STRATEGY DIRECTOR - 11/09/2024 11:59 PM STRATEGY DIRECTOR Hospital Encounter [facility] - Breast Imaging [address] [place] [address] 8 [place] [address] Abnormality of left breast on screening mammography Discharge Disposition: Discharge to home or self care 11/01/[address] [facility] Cardiology [address] [place] [phone] Amy Sanchez MA 10/31/[address] [facility] Cardiology [address] [place] [phone] Juan Henley MD Med Refill 10/31/2024 Telephone [facility] Surgery [address] [place] [phone] Kristina Ngo CMA 10/27/2024 11:30 AM STRATEGY DIRECTOR Office Visit [facility] Surgery [address] [place] [address] 8 [place] [phone] Jessica Odonnell NP At high risk for breast cancer (Primary Dx); Family history of breast cancer; Dense breast tissue 10/27/2024 10:49 AM STRATEGY DIRECTOR - 10/27/2024 11:59 PM STRATEGY DIRECTOR Hospital Encounter [facility] - Breast Imaging [facility] [address] [address] Breast cancer screening by mammogram Discharge Disposition: Discharge to home or self care 09/19/[address] [facility] Cardiology [address] [facility] [address] [place] [phone] Juan Henley MD 09/19/2024 9:45 AM STRATEGY DIRECTOR Office Visit 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 Cardiology [address] [facility] [address] [place] [phone] Juan Henley MD 09/12/2024 Orders Only [facility] Health Information Management [address] [place] [phone] Juan Henley MD 08/24/2024 Telephone [facility] Surgery [address] [place] [phone] Karla Ferrer MD PhD Medical Question/Miscellaneo us 08/23/2024 Telephone [facility] Surgery [address] [place] [phone] Grace Klein [facility] 08/23/2024 Telephone [facility] Surgery [address] [place] [phone] Grace Klein, [facility] 08/22/2024 Telephone [facility] Surgery [address] [place] [phone] Karla Ferrer MD PhD Medical Question/Miscellaneo us 08/21/2024 Telephone [facility] Surgery [address] [place] [phone] Karla Ferrer MD PhD Medical Question/Miscellaneo us 08/17/2024 Telephone [facility] Surgery [address] [place] [phone] Aft, Karla Agudelo MD PhD Medical Question/Miscellaneo us from Last 3 Months Allergies Active Allergy [...] IN LEFT EYE FOUR TIMES DAILY. Active [id number] al 27 mg iron-1.13 mg-581.92 mg capsule [...] the abdomen 03/25/201601/25 Seasonal allergic rhinitis 03/25/201601/25 Immunizations Name Administration Dates Next Due Flucelvax Influenza Quad 06/27/2019 Influenza, Quadrivalent, Spl it, Preservative Free, Intramuscular 09/27/2023,06/25/2020,07/17/2018 Influenza, Trivalent, Cell C ulture-based MDCK, Preservative Free, Antibiotic Free, Intramuscular 06/27/2019 Influenza, Trivalent, IM (MDV) 07/22/2017,2015,07/18/2015 Influenza, Trivalent, Preser vative Free, Intramuscular 07/16/2016 Social History Tobacco Use Types Packs/Day Years Used Date Smoking Tobacco: Never Tobacco Cessation:Counseling Given: Not Answered Comments No Sex and Gender Information Value Date Recorded Sex Assigned at Not on file Legal Sex Female 1:01 PM CDT Gender Identity Female 07/22/2020 9:42 AM CDT Sexual Orientation Straight 07/22/2020 9: 42 AM CDT Last Filed Vital Signs Vital Sign Reading Time Taken Comments Blood Pressure 126/80 09/19/2024 9:55 AM STRATEGY DIRECTOR Pulse 93 09/19/2024 9:55 AM STRATEGY DIRECTOR Temperature - - Respiratory Rate - - Oxygen Saturation 97% 09/19/2024 9:55 AM STRATEGY DIRECTOR Inhaled Oxygen Concentration - - Weight 118.8 kg (261 lb 14.5 oz) 2024 10:58 AM STRATEGY DIRECTOR Height 165.1 cm (5' 5 ) 10/27/2024 10:5 8 AM STRATEGY DIRECTOR Body Mass Index 43.58 10/27/2024 10:58 AM STRATEGY DIRECTOR Plan of Treatment Not on file Medical Devices Implanted Type Area Hand Stoner Device Identifier Shelf Expiration Date Model / Serial / Lot Hernia Mesh Abdomen Lumbar Spine Fusion Instrumentation Implanted: 5 (Quantity not on file) Spine Lumbar Procedures Procedure Name Priority Date/Time Associated Diagnosis Comments DIAGNOSTIC MAMMOGRAM LEFT W MAXIMO Schedule Routine, Read Routine (OP Routine) 11/09/2024 12:47 PM STRATEGY DIRECTOR Abnormality of left breast on screening mammography SCREENING MAMMOGRAM BILATERAL W MAXIMO Schedule Routine, Read Routine (OP Routine) 10/27/2024 11:28 AM STRATEGY DIRECTOR Breast cancer screening by mammogram POCT LIPID PANEL Routine 09/19/2024 11:3 8 AM STRATEGY DIRECTOR Need for lipid screening CARDIOLOGY DOCUMENT SCAN 09/15/2024 CARDIOLOGY DOCUMENT SCAN 09/12/2024 CARDIOLOGY DOCUMENT SCAN Routine 09/11/2024 11:17 AM STRATEGY DIRECTOR from Last 3 Months Results * Diagnostic Mammogram Left W Maximo (11/09/2024 12:47 PM STRATEGY DIRECTOR) Anatomical Region Laterality Modality Breast Left Mammography 11/09/2024 1:04 PM STRATEGY DIRECTOR Impressions 11/09/2024 3:19 PM STRATEGY DIRECTOR Grouped layering calcification in the upper central [...] Diana Jeff M.D. Narrative 11/09/2024 3:19 PM STRATEGY DIRECTOR EXAMINATION: LEFT UNILATERAL DIGITAL DIAGNOSTIC MAMMOGRAM AND [...] signed by: Diana Jeff M.D. Jessica Odonnell IMG MAMMO PROCEDURES Final Result * Screening Mammogram Bilateral W Maximo (10/27/2024 11:28 AM STRATEGY DIRECTOR) Anatomical Region Laterality Modality Breast Bilateral Mammography Narrative 10/30/2024 11:33 AM STRATEGY DIRECTOR Mammogram Technique: Bilateral Digital Breast Tomosynthesis, Bilateral C-view 2D Screening mammogram. ??Views obtained: ??bilateral craniocaudal and bilateral mediolateral oblique. ??Computer Aided Detection was performed. Mammogram Findings: The present examination has been compared to prior imaging studies performed at [facility] on 02/24/2021, 07/30/2021, 07/27/2022 and 10/18/2023. The [...] compared to prior imaging studies performed at [facility] on 02/24/2021, 07/30/2021,07/27/2022 and 10/18/2023. The breasts [...] CATEGORY 0: Incomplete: Need additional imaging evaluation. Leah Zhao NP IMG MAMMO PROCEDURES Fin al Result * POCT lipid panel (09/19/2024 11:38 AM STRATEGY DIRECTOR) Cholesterol, POC 117 mg/dL Comment:GLU = 131 HDL, POC 62 mg/dL Triglycerides, POC 144 mg/dL LDL Cholesterol POC 26 mg/dL Chol/HDL Ratio, POC 0.4 Non-HDL Cholesterol, POC 55 mg/dL Cholesterol Total, POC 117 mg/dL Capillary blood 09/19/2024 1 1:38 AM STRATEGY DIRECTOR Juan Henley MD POINT OF CARE TEST ORDERABLES Fi nal Result * Cardiology Document Scan (09/15/2024) Anatomical Region Laterality Modality Other Result Jarad Henley MD [facility] PROCEDURES F inal Result * Cardiology Document Scan (09/12/2024) Anatomical Region Laterality Modality Other Result Jarad Henley MD CV CARDIAC SERVICES PROCEDURES E dited Result - Final * Cardiology Document Scan (09/11/2024 11:17 AM STRATEGY DIRECTOR) Anatomical Region Laterality Modality Other Result Jarad Henley MD CV CARDIAC SERVICES PROCEDURES F inal Result from Last 3 Months Insurance [employer] ACCESS CHOICE Care Teams Transcribing Machine Operator Relationship Specialty Start Date End Date Gloria Urbina MD [address] [facility] [address] [address] PCP - General Family Practice 09/19/24
--- OUTSIDE RECORDS SUMMARY | 2024-11-14 17:42 | XMS_ITS | Encounter Summary ---
Author Organization [facility] Healthcare Address [address] [place] [address] Care Team Providers Care Senior Air Director Name Role Phone Michael Acharya MD Primary Care Provider [phone] Sarita Lopez NP Primary Care Provider [phone] Cristina Navarro NP Primary Care Provider + Gloria Urbina MD Primary Care Provider Encounter Details Date Type Department Care Team (Late st Contact Info) Description 08/05/2020 Telephone [facility] [address] [place] [phone] Bentley Mehta, Social History Tobacco Use Types Packs/Day Years [...] on file documented as of this encounter Visit Diagnoses Not on filedocumented in this encounter Care Teams Senior Air Director Relationship Specialty Start Date End Date Michael Acharya MD [address] [place] [address] PCP - General 07/26/17 07/19/22 Sarita Lopez NP [address] [place] [address] PCP - General Nurse Practitioner 07/20/22 12/02/23 Cristina Navarro NP [address] [place] [address] [address] [place] [address] [phone] PCP - General Nurse Practitioner 12/03/23 09/18/24 Gloria Urbina MD [address] [place] [address] [address] [place] [phone] PCP - General Family Practice 09/19/24 documented as of this encounter
--- OUTSIDE RECORDS SUMMARY | 2024-11-14 17:42 | XMS_ITS | Encounter Summary ---
Author Organization [facility] Healthcare Address [address] [place] [address] Care Team Providers Care Speech Coach Name Role Phone Gloria Urbina MD Primary Care Provider Reason for Visit * Reason Onset Date Comments Med Refill 10/31/2024 Encounter Details Date Type Department Care Team (Late st Contact Info) Description 10/31/2024 Telephone [facility] Medical Group Cardiology [address] [place] [phone] Juan Henley MD [address] [facility] 162 [facility] [address] [place] [address] Med Refill Social History Tobacco Use Types Packs/Day Years Used Date Smoking Tobacco: Never Comments No Sex and Gender Information Value Date Recorded Sex Assigned at Not on file Legal Sex Female 1:01 PM CDT Gender Identity Female 07/22/2020 9:42 AM CDT Sexual Orientation Straight 07/22/2020 9: 42 AM CDT documented as of this encounter Miscellaneous Notes * Telephone Encounter - Amy Sanchez MA - 11/01/2024 2:32 PM CST Returned call to pt and reviewed Dr. Henley's response. Pt was very firm about preferring a 10 mg refill because that is how she has been taking it. Pt feared Dr. Henley did not recall their previous conversation. Crestor 10 mg sent to pharmacy at requested. ER [facility] * Telephone Encounter - Marisela Blake - 11/01/2024 2:05 PM CST Patient returning call. Requesting a call back. Please advise. Thank you. Contact [phone] ER [facility] * Telephone Encounter - Amy Sanchez MA - 11/01/2024 1:57 PM CST LM asking pt to call office ER [facility] * Telephone Encounter - Amy Sanchez MA - 10/31/2024 1:[address] Henley, Will you be prescribing pt's Crestor and should she be on 20 mg or 10 mg? Please advise? Thank you ER [facility]ED [facility] * Telephone Encounter - Marisela Blake - 10/31/2024 12:24 PM CST Patient requesting refill for rosuvastatin (CRESTOR) 10 mg one tab by mouth daily. with 90 day supply. Please send to [facility] pharmacy. Thank you. Contact [phone] ER [facility] documented in this encounter Plan of Treatment Not on file documented as of this encounter Visit Diagnoses Not on filedocumented in this encounter Care Teams Speech Coach Relationship Specialty Start Date End Date Gloria Urbina MD [facility] [address] [place] [phone] PCP - General Family Practice 09/19/24 documented as of this encounter
[2024-11-14 18:09] VITALS: BP 121/78; PULSE 107; RESP 18; TEMP 36.9; O2SAT 97
[2024-11-14 18:23] LABS: EDCOVIDSCREEN Negative (Negative); EDINFLUASCREEN Positive (Negative); EDINFLUBSCREEN Negative (Negative)
--- NOTE | 2024-11-14 18:46 | ED.URI ---
HPI - URI/Sore Throat General Chief Complaint: Upper Respiratory Infection Stated Complaint: flu like symptoms Time Seen by Provider: 11/14/24 18:46 Source: patient, RN notes reviewed and old records reviewed Mode of arrival: ambulatory Limitations: no limitations Related Data Home Medications ?Medication ?Instructions ?Recorded ?Confirmed ?Last Taken ?Type fluticasone propionate 50 1 spray intranasal DAILY PRN 11/23/23 11/07/24 09/10/24 History mcg/actuation nasal Allergy Symptoms spray,suspension (Flonase Allergy Relief) multivitamin (Daily Multi-Vitamin 1 tablet PO DAILY 11/23/23 11/07/24 08/11/24 History tablet) famotidine 20 mg tablet (Pepcid AC 20 mg DAILY PRN Indigestion 09/11/24 11/07/24 09/11/24 03:30 History Maximum Strength) acetaminophen 650 mg 650 mg PO Q12H PRN 09/14/24 11/07/24 Unknown History tablet,extended release (Tylenol Arthritis Pain) cetirizine 10 mg tablet (Zyrtec) 10 mg PO DAILY PRN Allergy Symptoms 09/14/24 11/07/24 Unknown History cyclobenzaprine 10 mg tablet 10 mg PO TID PRN 09/14/24 11/07/24 Unknown History olopatadine 0.2 % eye drops 1 drp EACH EYE DAILY 09/14/24 11/07/24 Unknown History (Pataday Once Daily Relief) rosuvastatin 10 mg tablet 10 mg PO QHS 11/07/24 11/07/24 Unknown History Allergies Allergy/AdvReac Type Severity Reaction Status Date / Time aspirin Allergy Intermediate Swelling Verified 11/14/24 19:03 NSAIDS (Non-Steroidal Allergy Intermediate face Verified 11/14/24 19:03 Anti-Inflamma swelling midazolam AdvReac Severe Hallucinati Verified 11/14/24 19:03 ng tramadol AdvReac Severe Hallucinati Verified 11/14/24 19:03 ng amoxicillin AdvReac Intermediate Diarrhea Verified 11/14/24 19:03 ciprofloxacin AdvReac Intermediate NAUSEA AND Verified 11/14/24 19:03 DIARRHEA clarithromycin AdvReac Intermediate Vomiting Verified 11/14/24 19:03 erythromycin base AdvReac Intermediate Vomiting Verified 11/14/24 19:03 Review of Systems Review of Systems: All systems reviewed & are unremarkable except as noted in HPI and below Constitutional: Constitutional: Reports no additional constitutional complaints ENT: Reports system reviewed and no additional complaints, except as documented Cardiovascular: Cardiovascular: Reports no additional cardiovascular complaints Respiratory: Respiratory: Reports no additional respiratory complaints Gastrointestinal: Gastrointestinal: Reports no additional gastrointestinal complaints [facility] Past Medical History Medical History Anxiety GERD without esophagitis Lingual tonsil hypertrophy Gluten-sensitive enteropathy Irritable bowel syndrome with diarrhea Myocardial infarction with nonobstructive coronary arteries (~09/2024) Type 2 diabetes mellitus without complications (~09/2024) Sleep apnea On CPAP Chronic venous insufficiency of lower extremity Lymphedema of both lower extremities Bilateral anterior knee pain Diverticulitis (~2019) History of shingles Vitamin D deficiency Shingles Celiac disease Endometriosis Depression (~2009) History of nephrolithotomy with removal of calculi 2014 delivery delivered 2005 and 2007 Scoliosis 7 kevin and screws Surgical History Surgical History History of back surgery History of D&C History of lithotripsy History of tonsillectomy H/O breast biopsy Hx of inguinal hernia repair History of back surgery 1994 Family History Family History Father Skin and subcutaneous tissue complication after insertion of filling material under skin Skin cancer Depression Family history of diabetes mellitus in first degree relative Mother Breast cancer Asthma Right bundle branch block Hypertension Sibling Skin cancer Depression Asthma Other Skin cancer Asthma Grandparent Heart disease Hypertension Grandparent Skin cancer Diabetes mellitus Heart disease Hypertension Thyroid disorder Asthma Other Family history of allergic disorder Social History Social History Smoking status: Never smoker Second hand tobacco smoke exposure: No Alcohol intake: never Alcohol use details: rarely Substance use: never Substance use type: does not use Do You Feel Safe in your Home?: Yes Lack of Transportation: No Lack of Food: Never True Current Housing: I Have Housing Concerned About Future Housing: No Difficulty Paying Gas/Electric Bills: No Difficulty Paying for Meds: No Currently Unemployed: No Education: Master's Degree or Higher Difficulty w/ Childcare or Family Care: No Living arrangements: with family 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 There is no relevant family history pertinent to the patient complaint. Exam Const: General: cooperative, no acute distress, alert and awake Orientation/consciousness: oriented to person, oriented to place and oriented to time HENMT: Head: normal to inspection Resp: Effort & Inspection: normal respiratory effort and able to speak in complete sentences Auscultation: clear to auscultation bilaterally, no crackles, no rales, no rhonchi and no wheezes Cardio: Palpation: normal PMI Rate: regular rate Rhythm: regular rhythm Heart sounds: S1 normal heart sound present and S2 normal heart sound present Neuro: General: oriented to person, oriented to place and oriented to time Cranial nerves: Yes CN's II-XII intact bilaterally Psych: Appearance: grossly normal Thought process: Normal thought process present Insight: Good insight present (Psych) Judgement: Good judgement present (Psych) Course Course Level of Care: Express Care Visit Vital Signs Vital signs: Vital Signs Temperature 98.5 F 11/14/24 18:09 Pulse Rate 107 H 11/14/24 18:09 Respiratory Rate 18 11/14/24 18:09 Blood Pressure 121/78 11/14/24 18:09 Pulse Oximetry 97 11/14/24 18:09 Oxygen Delivery Room Air 11/14/24 18:09 Temperature 98.5 F 11/14/24 18:09 Pulse Rate 107 H 11/14/24 18:09 Respiratory Rate 18 11/14/24 18:09 Blood Pressure 121/78 11/14/24 18:09 Pulse Oximetry 97 11/14/24 18:09 Oxygen Delivery Room Air 11/14/24 18:09 Reviewed MDM - URI/Sore Throat Lab Data Labs: Lab Results 11/14/24 Range/Units 18:22 POC Influenza A Ag Positive (Negative) POC Influenza B Ag Negative (Negative) POC SARS CoV-2 Ag Negative (Negative) Discharge Plan Discharge Clinical Impression: Influenza Patient Disposition: Home, Self-Care Condition: Stable Instructions: Antibiotic Form, Influenza (ED) Additional Instructions: take medications as prescribed. Follow-up with primary care provider. Emergency department for any new or worsening symptoms Patient Language: Guamanian Prescriptions: New oseltamivir [Tamiflu] 75 mg capsule 75 mg PO Q12H 5 Days Qty: 10 0RF No Action multivitamin [Daily Multi-Vitamin] Tablet 1 tablet PO DAILY Patient Comments: has not been taking in last month rosuvastatin 10 mg tablet 10 mg PO QHS Ozempic 0.25 mg or 0.5 mg (2 mg/3 mL) pen injector 0.25 mg subcut WEEKLY Qty: 3 0RF Rx Instructions: for 4 weeks escitalopram oxalate [Lexapro] 5 mg tablet 5 mg PO DAILY Qty: 90 0RF fluticasone propionate [Flonase Allergy Relief] 50 mcg/actuation spray,suspension 1 spray intranasal DAILY PRN (Reason: Allergy Symptoms) Rx Instructions: administer into each nostril cetirizine [Zyrtec] 10 mg tablet 10 mg PO DAILY PRN (Reason: Allergy Symptoms) acetaminophen [Tylenol Arthritis Pain] 650 mg tablet extended release 650 mg PO Q12H PRN olopatadine [Pataday Once Daily Relief] 0.2 % drops 1 drp EACH EYE DAILY cyclobenzaprine 10 mg tablet 10 mg PO TID PRN famotidine [Pepcid AC Maximum Strength] 20 mg Tablet 20 mg DAILY PRN (Reason: Indigestion) cholecalciferol (vitamin D3) 1,250 mcg (50,000 unit) tablet 1,250 mcg PO WEEKLY Qty: 12 1RF (DME) blood-glucose meter [Blood Glucose Monitoring] Kit See Rx Instructions .ROUTE .MEDSUPPLY Qty: 1 0RF Rx Instructions: check blood sugars q.day. As directed (DME) lancets 33 gauge misc See Rx Instructions .ROUTE .MEDSUPPLY Qty: 100 1RF Rx Instructions: check blood sugars q.day. As directed (DME) Blood Glucose Test Strip See Rx Instructions .ROUTE .MEDSUPPLY Qty: 100 1RF Rx Instructions: check blood sugars q.day As directed Jardiance 25 mg tablet 25 mg PO QAM Qty: 90 1RF coenzyme Q10 200 mg capsule 200 mg PO DAILY Qty: 90 1RF Follow-up/Referrals: Kenn Urbina MD [Primary Care Provider] - 1 Week Stand Alone Forms: Work/School Release IP Time of Disposition: 19:04
== END 2024-11-14 19:15 | disposition home or self-care (01) ==
PROVIDERS: Emergency Provider Nurse Practitioner Family; PCP Family Medicine
DX: J11.1 Influenza due to unidentified influenza virus with other respiratory manifestations (principal); K21.9 Gastro-esophageal reflux disease without esophagitis; E11.9 Type 2 diabetes mellitus without complications; I25.2 Old myocardial infarction; E55.9 Vitamin D deficiency, unspecified; K90.0 Celiac disease; Z20.822 Contact with and (suspected) exposure to COVID-19
CPT/HCPCS: 87426; 87804; 99213; G0463

== ENCOUNTER 2024-11-26 09:00 | Emergency (ER) | payer BC, SELFPAY ==
--- OUTSIDE RECORDS SUMMARY | 2024-11-26 09:03 | XMS_ITS | Clinical Summary ---
Author Organization [facility] Address [address] [place] [address] Care Team Providers Care Music Engineer Name Role Phone Gloria Urbina MD Primary [...] IN LEFT EYE FOUR TIMES DAILY. Active [id number] f-Apdvemsv-ubp al 27 mg iron-1.13 mg-581.92 mg capsule [...] Department Care Team Description 11/09/2024 11:58 AM TUBE WRAPPER - 11/09/2024 11:59 PM TUBE WRAPPER Hospital Encounter [facility] - Breast Imaging [address] [place] [address] 8 [place] [address] Abnormality of left breast on screening mammography Discharge Disposition: Discharge to home or self care 11/01/2024 Orders Only [facility] Cardiology [address] [place] [phone] Amy Sanchez MA 10/31/2024 Telephone [facility] Cardiology [address] [place] [phone] Juan Henley MD Med Refill 10/31/2024 Telephone [facility] [address] [place] [address] 8 [place] [phone] Kristina Ngo CMA 10/27/2024 11:30 AM TUBE WRAPPER Office Visit [facility] [address] [place] [address] 8 [place] [phone] Jessica Odonnell NP At high risk for breast cancer (Primary Dx); Family history of breast cancer; Dense breast tissue 10/27/2024 10:49 AM TUBE WRAPPER - 10/27/2024 11:59 PM TUBE WRAPPER Hospital Encounter [facility] - Breast Imaging [address] [facility] Floor 8 [place] [address] Breast cancer screening by mammogram Discharge Disposition: Discharge to home or self care 09/19/2024 9:45 AM TUBE WRAPPER Office Visit [facility] Medical 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); Inflammatory arthropathy; Need for lipid screening 09/19/2024 Telephone [facility] Cardiology [address] [place] [phone] Juan Henley MD 09/15/2024 Orders Only [facility] Health Information Management [address] [place] [address] Juan Henley MD 09/13/2024 Orders Only [facility] Cardiology [address] [place] [phone] Juan Henley MD 09/12/2024 Orders Only [facility] Health Information Management [address] [place] [address] Juan Henley MD from Last 3 Months Immunizations Immunization Administration Dates Next Due Flucelvax Influenza Quad [...] Mother Adenocarcinoma of breast - (Added by JONNATHAN Conv) Skin cancer Mother's Brother Relation Name [...] Comments Blood Pressure 126/80 09/19/2024 9:55 AM TUBE WRAPPER Pulse 93 09/19/2024 9:55 AM TUBE WRAPPER Temperature - - Respiratory Rate - - Oxygen Saturation 97% 09/19/2024 9:55 AM TUBE WRAPPER Inhaled Oxygen Concentration - - Weight 118.8 kg (261 lb 14.5 oz) 2024 10:58 AM TUBE WRAPPER Height 165.1 cm (5' 5 ) 10/27/2024 10:5 8 AM TUBE WRAPPER Body Mass Index 43.58 10/27/2024 10:58 AM TUBE WRAPPER Plan of Treatment Health Maintenance Due Date Last Done Comments Cervical Cancer Screening 1979 Colon Cancer Screening-Colonoscopy 1979 Depression Screening 1979 Hepatitis C Screening 1979 DTaP/Tdap/Td Vaccine (1 - Tdap) 1990 Hepatitis B Screening 1997 Regular Well Visit/Exam 18-64 1997 Covid-19 Vaccine ( season) 2024 11/05/2021 Influenza Vaccine (#1) 2024 3, 06/25/2020, 06/27/2019, Additional history exists Breast Cancer Screening-Mammogram 10/27/2025 10/27/2024, 10/18/2023, 07/27/2022, Additional history exists HPV Vaccines Aged Out No longer eligi ble based on patient's age to complete this topic Pneumococcal vaccine <65 Aged Out No longer eligible based on patient's age to complete this topic Medical Devices Implanted Type Area Folder Seamer Device Identifier Shelf Expiration Date Model / Serial / Lot Hernia Mesh Abdomen Lumbar Spine Fusion Instrumentation Implanted:06/14/199 5 (Quantity not on file) Spine Lumbar Procedures Procedure Name Priority Date/Time Associated Diagnosis Comments DIAGNOSTIC MAMMOGRAM LEFT W MAXIMO Schedule Routine, Read Routine (OP Routine) 11/09/2024 12:47 PM TUBE WRAPPER Abnormality of left breast on screening mammography SCREENING MAMMOGRAM BILATERAL W MAXIMO Schedule Routine, Read Routine (OP Routine) 10/27/2024 11:28 AM TUBE WRAPPER Breast cancer screening by mammogram POCT LIPID PANEL Routine 09/19/2024 11:3 8 AM TUBE WRAPPER Need for lipid screening CARDIOLOGY DOCUMENT SCAN 09/15/2024 CARDIOLOGY DOCUMENT SCAN 09/12/2024 CARDIOLOGY DOCUMENT SCAN Routine 09/11/2024 11:17 AM TUBE WRAPPER from Last 3 Months Results * Diagnostic Mammogram Left W Maximo (11/09/2024 12:47 PM TUBE WRAPPER) Anatomical Region Laterality Modality Breast Left Mammography 11/09/2024 1:04 PM TUBE WRAPPER Impressions 11/09/2024 3:19 PM TUBE WRAPPER Grouped layering calcification in the upper central [...] Diana Jeff M.D. Narrative 11/09/2024 3:19 PM TUBE WRAPPER EXAMINATION: LEFT UNILATERAL DIGITAL DIAGNOSTIC MAMMOGRAM AND [...] is no suspicious mass or architectural distortion. Procedure Note Diana Jeff MD - 11/09/2024 [...] Mammogram Bilateral W Maximo (10/27/2024 11:28 AM TUBE WRAPPER) Anatomical Region Laterality Modality Breast Bilateral Mammography Narrative 10/30/2024 11:33 AM TUBE WRAPPER Mammogram Technique: Bilateral Digital Breast Tomosynthesis, Bilateral C-view 2D Screening mammogram. Views obtained: bilateral craniocaudal and bilateral mediolateral oblique. Computer Aided Detection was performed. Mammogram Findings: The present examination has been compared to prior imaging studies performed at [facility] on 02/24/2021, 07/30/2021, 07/27/2022 and 10/18/2023. The [...] CATEGORY 0: Incomplete: Need additional imaging evaluation. Procedure Note Rossi Warner MD - 10/30/2024 Mammogram Technique: Bilateral Digital Breast Tomosynthesis, Bilateral C-view 2D Screening mammogram. Views obtained: bilateral craniocaudal and bilateral mediolateral oblique. Computer Aided Detection was performed. Mammogram Findings: The present examination has been compared to prior imaging studies performed at [facility] on 02/24/2021, 07/30/2021,07/27/2022 and 10/18/2023. The breasts [...] Need additional imaging evaluation. us Leah Zhao NP IMG MAMMO PROCEDURES Fin al Result * POCT lipid panel (09/19/2024 11:38 AM TUBE WRAPPER) Cholesterol, POC 117 mg/dL Comment:GLU = 131 HDL, POC 62 mg/dL Triglycerides, POC 144 mg/dL LDL Cholesterol POC 26 mg/dL Chol/HDL Ratio, POC 0.4 Non-HDL Cholesterol, POC 55 mg/dL Cholesterol Total, POC 117 mg/dL Capillary blood 09/19/2024 1 1:38 AM TUBE WRAPPER Result Jarad Henley MD POINT OF CARE TEST ORDERABLES Fi nal Result * Cardiology Document Scan (09/15/2024) Anatomical Region Laterality Modality Other Result Jarad Henley MD CV CARDIAC SERVICES PROCEDURES F inal Result * Cardiology Document Scan (09/12/2024) Anatomical Region Laterality Modality Other Result Jarad Henley MD CV CARDIAC SERVICES PROCEDURES E dited Result - Final * Cardiology Document Scan (09/11/2024 11:17 AM TUBE WRAPPER) Anatomical Region Laterality Modality Other Result Jarad Henley MD CV CARDIAC SERVICES PROCEDURES F inal Result from Last 3 Months Insurance [employer] CHOICE ANTHEM ACCESS CHOICE Care Teams Music Engineer Relationship Specialty Start Date End Date Gloria Urbina MD [address] [facility] [place] [address] PCP - General Family Practice 09/19/24
--- OUTSIDE RECORDS SUMMARY | 2024-11-26 09:03 | XMS_ITS | Patient Health Record ---
Author Organization [facility] Address [address] [facility] [address] [place], [place] [id number] Care Team Providers Care Salesforce Trainer Name Role Phone KYLEE Rahman Unavailable [phone] Answer, Declined Unavailable Unavailable SNOOK, MARIO Unavailable [phone] Allergies Allergen (clinical drug ingredient) Drug/Non Drug Allergy documented on EMR Reaction Allergy Type Onset Date Status Anti-Inflammatory Enzyme Unknown Drug Allergy Active Tape Unknown Allergy Active Reason For Referral No Information Encounters Encounter Location Date Provider Diagnosis [facility] [place] [address] [place], [place] [phone] 06/19/2024 MARIO SNOOK Plantar fascial fibromatosis M72.2 ; Unequal limb length (acquired), 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 [facility] Unequal limb length (acquired), unspecified tibia [...] Insured Coverage Start Date Coverage End Date [facility] ([facility]) ATTN CLAIMS [address] [place] [address] [id number] LEOPOLDO BECK Self - patient is the insured
--- OUTSIDE RECORDS SUMMARY | 2024-11-26 09:03 | XMS_ITS | Referral Summary ---
Author Organization [facility] Address [address] [place] [address] Care Team Providers Care Canoe Maker Name Role Phone Gloria Urbina MD Primary Care Provider Encounters Date Type Department Care Team Description 11/09/2024 11:58 AM FINANCIAL MANAGER - 11/09/2024 11:59 PM FINANCIAL MANAGER Hospital Encounter [facility] - Breast Imaging [address] [place] [address] 8 [place] [address] Abnormality of left breast on screening mammography Discharge Disposition: Discharge to home or self care 11/01/2024 Orders Only [facility] Cardiology [address] [place] [phone] Amy Sanchez MA 10/31/2024 Telephone [facility] Medical [facility] Cardiology [address] [place] [phone] Juan Henley MD Med Refill 10/31/2024 Telephone [facility] [place] [facility] [address] [place] [phone] Kristina Ngo CMA 10/27/2024 11:30 AM FINANCIAL MANAGER Office Visit [facility] [place] [facility] [address] [place] [address] 8 [place] [address] Jessica Odonnell NP At high risk for breast cancer (Primary Dx); Family history of breast cancer; Dense breast tissue 10/27/2024 10:49 AM FINANCIAL MANAGER - 10/27/2024 11:59 PM FINANCIAL MANAGER Hospital Encounter [facility] - Breast Imaging [facility] [address] [address] Breast cancer screening by mammogram Discharge Disposition: Discharge to home or self care 09/19/2024 Telephone [facility] Cardiology [address] [facility] [address] [place] [phone] Juan Henley MD 09/19/2024 9:45 AM FINANCIAL MANAGER Office Visit [facility] Cardiology [address] [place] [address] [address] [place] [phone] Juan Henley MD 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 Active [id number]-vkv z-Rsnlhjnf-vow al 27 mg iron-1.13 mg-581.92 mg capsule [...] abdomen 03/25/201601/25 Seasonal allergic rhinitis 03/25/201601/25 Immunizations Immunization Administration Dates Next Due Flucelvax [...] Comments Blood Pressure 126/80 09/19/2024 9:55 AM FINANCIAL MANAGER Pulse 93 09/19/2024 9:55 AM FINANCIAL MANAGER Temperature - - Respiratory Rate - - Oxygen Saturation 97% 09/19/2024 9:55 AM FINANCIAL MANAGER Inhaled Oxygen Concentration - - Weight 118.8 kg (261 lb 14.5 oz) 2024 10:58 AM FINANCIAL MANAGER Height 165.1 cm (5' 5 ) 10/27/2024 10:5 8 AM FINANCIAL MANAGER Body Mass Index 43.58 10/27/2024 10:58 AM FINANCIAL MANAGER Plan of Treatment Not on file Medical Devices Implanted Type Area Senior Energy Market Coordinator Device Identifier Shelf Expiration Date Model / Serial / Lot Hernia Mesh Abdomen Lumbar Spine Fusion Instrumentation Implanted: 5 (Quantity not on file) Spine Lumbar Procedures Procedure Name Priority Date/Time Associated Diagnosis Comments DIAGNOSTIC MAMMOGRAM LEFT W MIRANDA Schedule Routine, Read Routine (OP Routine) 11/09/2024 12:47 PM FINANCIAL MANAGER Abnormality of left breast on screening mammography SCREENING MAMMOGRAM BILATERAL W MIRANDA Schedule Routine, Read Routine (OP Routine) 10/27/2024 11:28 AM FINANCIAL MANAGER Breast cancer screening by mammogram POCT LIPID PANEL Routine 09/19/2024 11:3 8 AM FINANCIAL MANAGER Need for lipid screening CARDIOLOGY DOCUMENT SCAN 09/15/2024 CARDIOLOGY DOCUMENT SCAN 09/12/2024 CARDIOLOGY DOCUMENT SCAN Routine 09/11/2024 11:17 AM FINANCIAL MANAGER from Last 3 Months Results * Diagnostic Mammogram Left W Miranda (11/09/2024 12:47 PM FINANCIAL MANAGER) Anatomical Region Laterality Modality Breast Left Mammography 11/09/2024 1:04 PM FINANCIAL MANAGER Impressions 11/09/2024 3:19 PM FINANCIAL MANAGER Grouped layering calcification in the upper central [...] Diana Jeff M.D. Narrative 11/09/2024 3:19 PM FINANCIAL MANAGER EXAMINATION: LEFT UNILATERAL DIGITAL DIAGNOSTIC MAMMOGRAM AND [...] signed by: Diana Jeff M.D. Jessica Odonnell B[facility] IMG MAMMO PROCEDURES Final Result * Screening Mammogram Bilateral W Miranda (10/27/2024 11:28 AM FINANCIAL MANAGER) Anatomical Region Laterality Modality Breast Bilateral Mammography Narrative 10/30/2024 11:33 AM FINANCIAL MANAGER Mammogram Technique: Bilateral Digital Breast Tomosynthesis, Bilateral C-view 2D Screening mammogram. Views obtained: bilateral craniocaudal and bilateral mediolateral oblique. Computer Aided Detection was performed. Mammogram Findings: The present examination has been compared to prior imaging studies performed at [facility] on 02/24/2021, 07/30/2021, 07/27/2022 and [...] compared to prior imaging studies performed at [facility] on 02/24/2021, 07/30/2021,07/27/2022 and 10/18/2023. [...] CATEGORY 0: Incomplete: Need additional imaging evaluation. Result [facility] us Leah Zhao BAG SORTER IMG MAMMO PROCEDURES Fin al Result * POCT lipid panel (09/19/2024 11:38 AM FINANCIAL MANAGER) Cholesterol, POC 117 mg/dL Comment:GLU = 131 HDL, POC 62 mg/dL Triglycerides, POC 144 mg/dL LDL Cholesterol POC 26 mg/dL Chol/HDL Ratio, POC 0.4 Non-HDL Cholesterol, POC 55 mg/dL Cholesterol Total, POC 117 mg/dL Capillary blood 09/19/2024 1 1:38 AM FINANCIAL MANAGER Result Jarad Henley MD POINT OF CARE TEST ORDERABLES Fi nal Result * Cardiology Document Scan (09/15/2024) Anatomical Region Laterality Modality Other Result Jarad Henley MD CV CARDIAC SERVICES PROCEDURES F inal Result * Cardiology Document Scan (09/12/2024) Anatomical Region Laterality Modality Other Result Jarad Henley MD CV CARDIAC SERVICES PROCEDURES E dited Result - Final * Cardiology Document Scan (09/11/2024 11:17 AM FINANCIAL MANAGER) Anatomical Region Laterality Modality Other Result Jarad Henley MD CV CARDIAC SERVICES PROCEDURES F inal Result from Last 3 Months [facility] ANTHEM ACCESS CHOICE Care Teams Canoe Maker Relationship Specialty Start Date End Date Gloria Urbina MD [facility] [facility] [place] [address] PCP - General Family Practice 09/19/24
--- OUTSIDE RECORDS SUMMARY | 2024-11-26 09:03 | XMS_ITS | Encounter Summary ---
Author Organization [facility] Address [address] [facility] [place] [address] Care Team Providers Care Evs Attendant Name Role Phone Michael Acharya MD Primary Care Provider [phone] Renetta Vasquez MD Primary Care Provider Un available Encounter Details Date Type Department Care Team (Late st Contact Info) Description 08/12/2018 Lab Requisition [facility] Care DermPath Lab [address] [facility] [place] [phone] Shavonne Anders MD [address] [facility] [address] [place] [address] Social History Tobacco Use Types Packs/Day Years [...] 12:00 AM CDT) Case Report Dermatopathology Report Case: [id number] Authorizing Provider: Shavonne Anders MD Collected: 08/11/2018 12:00 AM Pathologist: Nell Doty MD Received: 08/12/2018 06:56 AM Specimen: Skin, back 8 10:38 AM CDT DERMATOPATHOLOGY LABORATORY Clinical History R/O cyst, irritated, painful. 10:[address] [facility] DERMATOPATHOLOGY LABORATORY Gross Description Specimen A: Received is one formalin filled container labeled with the patient's name and designated back. The specimen consists of a [id number] excision. The specimen is serially sectioned and a shared services representative section is submitted in cassette 1. Jar 1. [facility] Dermatopathology Laboratory performed the technical component only. 10:[address] [facility] DERMATOPATHOLOGY LABORATORY Embedded Images 10:[address] [facility] DERMATOPATHOLOGY LABORATORY DISCLAIMER An external and internal positive and negative controls are appropriate for the histochemical, immunohistochemical and immunofluorescence stain(s) in this case (if any), except where stated explicitly. The performance characteristics of the stain(s) cited in this report were developed and its performance characteristic determined by the Dermatopathology Laboratory at [facility]. These tests need not be, and therefore are not, approved by the [place] Food and Drug Administration. The tests are used for clinical purposes. 10:[address] [facility] DERMATOPATHOLOGY LABORATORY Pathology/Cytolog y TISSUE SPECIMEN FROM SKIN / Unknown 08/11/2018 08/12/2018 6:56 AM CDT Shavonne Anders MD LAB - PATHOLOGY/CYTO LOGY ORDERABLES DERMATOPATHOLOGY LABORATORY [facility] - Department of Dermatology [address] [place] [address], 5th Floor Lab [address] [phone] documented in this encounter Visit Diagnoses Not on filedocumented in this encounter Care Teams Evs Attendant Relationship Specialty Start Date End Date Michael Acharya MD [address] [place] [address] PCP - General 08/03/18 12/28/19 Renetta Vasquez MD [address] [place] [address] PCP - General 12/29/19 documented as of this encounter
--- OUTSIDE RECORDS SUMMARY | 2024-11-26 09:04 | XMS_ITS | Encounter Summary ---
Author Organization [facility] Healthcare Address [address] [place] [address] Care Team Providers Care Cloth Finishing Range Operator Chief Name Role Phone Cristina Navarro NP Primary Care Provider + Gloria Urbina MD Primary Care Provider Encounter Details Date Type Department Care Team (Late st Contact Info) Description 09/15/2024 Orders Only [facility] Health Information Management [address] [place] [address] Juan Henley MD [address] [address] Social History Tobacco Use Types [...] (09/15/2024) Anatomical Region Laterality Modality Other Juan Helney MD CV CARDIAC SERVICES PROCEDURES F inal Result documented in this encounter Visit Diagnoses Not on filedocumented in this encounter Care Teams Cloth Finishing Range Operator Chief Relationship Specialty Start Date End Date Cristina Navarro NP [address] [facility] [address] [place] [address] PCP - General Nurse Practitioner 12/03/23 09/18/24 Gloria Urbina MD [address] [place] [address] [address] [place] [address] PCP - General Family Practice 09/19/24 documented as of this encounter
--- OUTSIDE RECORDS SUMMARY | 2024-11-26 09:04 | XMS_ITS | Clinical Summary ---
Author Organization [facility] Address [address] [place] [address] Care Team Providers Care Garbage Pick Up Worker Name Role Phone None, Provider MD Primary [...] 89 04/05/2024 12:38 PM CDT Temperature 36.7 C (98 F) 04/05/2024 10:44 AM CDT Respiratory Rate 18 [...] to complete this topic Insurance Care Teams Garbage Pick Up Worker Relationship Specialty Start Date End Date None, Provider, MD PCP - General UNKNOWN PHYSICIAN SPECIALTY 04/05/24
--- OUTSIDE RECORDS SUMMARY | 2024-11-26 09:04 | XMS_ITS | Data Portability ---
Author Organization [facility] Address [address] [place] [address] [place] [address] Care Team Providers Care Legal Secretary Name Role Phone DANIELA SPRING Primary Care Provider Assessment No assessment recorded. Plan of Treatment Reminders Order Date Submit Date Provider Last Modified By Organization Details Last Modified Time Details Appointments None recorded. Lab urinalysis, dipstick 2022 023 [email or web address] [id number] [address], [address], [place], [address], 3 12:38:23 culture, urine 2022 023 [facility] (Lab), [address], [place], [address], 3 06:50:27 urinalysis, dipstick 2022 023 [email or web address] Tyler, [address], [address], [place], [address], 3 15:59:34 urinalysis, dipstick 2022 023 [address], [address], [place], [address], 3 15:25:08 Referral None recorded. Procedures None recorded. Surgeries None recorded. Imaging US, pelvis 2022 023 [email or web address] [address], [address], [place], [address], 3 19:06:01 US, transvagina l 2022 023 [email or web address] [address], [address], [place], [address], 3 19:06:01 US, pelvis, complete 2022 023 [facility] [place] Scheduling, [address], [place], [address], 4 12:46:08 Medication Orders Macrobid 100 mg capsule 2022 023 [email or web address] [id number], [address], [place], [place], [id number], 5 09:26:08 Patient TargetsNo targets recorded. Patient InstructionsNo instructions recorded. Reason for Referral None Reported. Results Created Date Observation Date Name Description Value Unit Range Abnormal Flag Note LastModifiedBy Organization Detail LastModifiedTime 04/28/2004/28/2023 URINA LYSIS , WITH MICRO SCOPI C, REFLE X CULTU RE color, urine Light Yellow Not Available [facility] (Lab) [address], [place], [address], 04/30/2023 11:55:44 04/28/20 23 04/28/2023 URINA LYSIS , WITH MICRO SCOPI C, REFLE X CULTU RE clarity, urine Turbid abnormal Not Available [facility] (Lab) [address], [place], [address], 04/30/2023 11:55:44 04/28/20 23 04/28/2023 URINA LYSIS , WITH MICRO SCOPI C, REFLE X CULTU RE specific gravity, urine 1.025 . 1.005- 1.035 Not Available [facility] (Lab) [address], [place], [address], 04/30/2023 11:55:44 04/28/20 23 04/28/2023 URINA LYSIS , WITH MICRO SCOPI C, REFLE X CULTU RE pH, urine 5.5 . 5.0-7. 0 Not Available [facility] (Lab) [address], [place], [address], 04/30/2023 11:55:44 04/28/20 23 04/28/2023 URINA LYSIS , WITH MICRO SCOPI C, REFLE X CULTU RE protein, UA Negati ve mg/dL negati ve, - Not Available [facility] (Lab) [address], [place], [address], 04/30/2023 11:55:44 04/28/20 23 04/28/2023 URINA LYSIS , WITH MICRO SCOPI C, REFLE X CULTU RE glucose, urine Normal mg/dL negati ve Not Available [facility] (Lab) [address], [place], [address], 04/30/2023 11:55:44 04/28/20 23 04/28/2023 URINA LYSIS , WITH MICRO SCOPI C, REFLE X CULTU RE ketones, urine Negati ve mg/dL negati ve Not Available [facility] (Lab) [address] [place], [address], 04/30/2023 11:55:44 04/28/20 23 04/28/2023 URINA LYSIS , WITH MICRO SCOPI C, REFLE X CULTU RE bilirubin, urine Negati ve negati ve Not Available [facility] (Lab) [address] [place], [address], 04/30/2023 11:55:44 04/28/20 23 04/28/2023 URINA LYSIS , WITH MICRO SCOPI C, REFLE X CULTU RE blood, urine Negati ve negati ve Not Available [facility] (Lab) [address] [place], [address], 04/30/2023 11:55:44 04/28/20 23 04/28/2023 URINA LYSIS , WITH MICRO SCOPI C, REFLE X CULTU RE nitrite, urine Negati ve negati ve Not Available [facility] (Lab) [address], [place], [address], 04/30/2023 11:55:44 04/28/20 23 04/28/2023 URINA LYSIS , WITH MICRO SCOPI C, REFLE X CULTU RE leukocyte esterase, urine 75 say/u L negati ve abnormal Not Available [facility] (Lab) [address], [place], [address], 04/30/2023 11:55:44 04/28/20 23 04/28/2023 URINA LYSIS , WITH MICRO SCOPI C, REFLE X CULTU RE urobilinogen , urine Normal mg/dL normal , <2.0 Not Available [facility] (Lab) [address], [place], [address], 04/30/2023 11:55:44 04/28/20 23 04/28/2023 URINA LYSIS , WITH MICRO SCOPI C, REFLE X CULTU RE RBC, urine 0-2 /hpf none, 0-2 Not Available [facility] (Lab) [address], [place], [address], 04/30/2023 11:55:44 04/28/20 23 04/28/2023 URINA LYSIS , WITH MICRO SCOPI C, REFLE X CULTU RE WBC, urine 6-9 /hpf none, 0-5 abnormal Not Available [facility] (Lab) [address], [place], [address], 04/30/2023 11:55:44 04/28/20 23 04/28/2023 URINA LYSIS , WITH MICRO SCOPI C, REFLE X CULTU RE squamous epithelial cells, urine Modera te /hpf none abnormal Not Available [facility] (Lab) [address], [place], [address], 04/30/2023 11:55:44 04/28/20 23 04/28/2023 URINA LYSIS , WITH MICRO SCOPI C, REFLE X CULTU RE bacteria, urine Trace /hpf none abnormal Not Available [facility] (Lab) [address], [place], [address], 04/30/2023 11:55:44 04/28/20 23 04/28/2023 URINA LYSIS , WITH MICRO SCOPI C, REFLE X CULTU RE hyaline cast, urine None /lpf none, 0-2 Not Available [facility] (Lab) [address], [place], [address], 04/30/2023 11:55:44 04/28/20 23 04/28/2023 URINA LYSIS , WITH MICRO SCOPI C, REFLE X CULTU RE mucus, urine Modera te /hpf none, trace, few abnormal Urine Cultu re to follo w. Not Available [facility] (Lab) [address], [place], [address], 04/30/2023 11:55:44 04/28/20 23 04/28/2023 CULTU RE: URINE result report SEE RESULT S BELOW Test: Cultu re: Urine Speci men Type: Urine Speci men Date: 2022 4:34 PM Resul t Date: 2022 10:51 AM Resul t Statu s: Final resul t Abnor mal: No Resul ting Lab: [facility] [address] [facility] [address] Tel: [phone] CULTU RE ----- ----- ----- --- Cultu re resul t (>=3 organ isms prese nt) indic ates possi ble conta minat ion. Repea t cultu re if sympt oms indic ate. Not Available [facility] (Lab) [address], [place], [address], 04/30/2023 11:55:45 04/28/20 23 04/28/2023 urina lysis , dipst ick Leukocytes ++ Not Available [facility] celestina [address], [place], [address], 04/28/2023 15:24:42 04/28/20 23 04/28/2023 urina lysis , dipst ick Protein trace Not Available [facility] [address], [place], [address], 04/28/2023 15:24:42 04/28/20 23 04/28/2023 urina lysis , dipst ick pH 5 Not Available [facility] [address], [place], [address], 04/28/2023 15:24:42 04/28/20 23 04/28/2023 urina lysis , dipst ick Blood + Not Available [facility] [address], [place], [address], 04/28/2023 15:24:42 04/28/20 23 04/28/2023 urina lysis , dipst ick Specific Malin 1.025 Not Available [facility] [address], [place], [address], 04/28/2023 15:24:42 05/17/20 23 05/17/2023 URINA LYSIS , WITH MICRO SCOPI C, REFLE X CULTU RE color, urine Yellow Not Available [facility] (Lab) [address] [place], [address], 05/18/2023 04:22:17 05/17/20 23 05/17/2023 URINA LYSIS , WITH MICRO SCOPI C, REFLE X CULTU RE clarity, urine Clear Not Available [facility] (Lab) [address] [place], [address], 05/18/2023 04:22:17 05/17/20 23 05/17/2023 URINA LYSIS , WITH MICRO SCOPI C, REFLE X CULTU RE specific gravity, urine 1.026 . 1.005- 1.035 Not Available [facility] (Lab) [address], [place], [address], 05/18/2023 04:22:17 05/17/20 23 05/17/2023 URINA LYSIS , WITH MICRO SCOPI C, REFLE X CULTU RE pH, urine 7.0 . 5.0-7. 0 Not Available [facility] (Lab) [address], [place], [address], 05/18/2023 04:22:17 05/17/20 23 05/17/2023 URINA LYSIS , WITH MICRO SCOPI C, REFLE X CULTU RE protein, UA 20 mg/dL negati ve, 10-20 Not Available [facility] (Lab) [address], [place], [address], 05/18/2023 04:22:17 05/17/20 23 05/17/2023 URINA LYSIS , WITH MICRO SCOPI C, REFLE X CULTU RE glucose, urine Normal mg/dL negati ve Not Available [facility] (Lab) [address], [place], [address], 05/18/2023 04:22:17 05/17/20 23 05/17/2023 URINA LYSIS , WITH MICRO SCOPI C, REFLE X CULTU RE ketones, urine Negati ve mg/dL negati ve Not Available [facility] (Lab) [address], [place], [address], 05/18/2023 04:22:17 05/17/20 23 05/17/2023 URINA LYSIS , WITH MICRO SCOPI C, REFLE X CULTU RE bilirubin, urine Negati ve negati ve Not Available [facility] (Lab) [address], [place], [address], 05/18/2023 04:22:17 05/17/20 23 05/17/2023 URINA LYSIS , WITH MICRO SCOPI C, REFLE X CULTU RE blood, urine Negati ve negati ve Not Available [facility] (Lab) [address], [place], [address], 05/18/2023 04:22:17 05/17/20 23 05/17/2023 URINA LYSIS , WITH MICRO SCOPI C, REFLE X CULTU RE nitrite, urine Negati ve negati ve Not Available [facility] (Lab) [address], [place], [address], 05/18/2023 04:22:17 05/17/20 23 05/17/2023 URINA LYSIS , WITH MICRO SCOPI C, REFLE X CULTU RE leukocyte esterase, urine Negati ve say/u L negati ve Not Available [facility] (Lab) [address], [place], [address], 05/18/2023 04:22:17 05/17/20 23 05/17/2023 URINA LYSIS , WITH MICRO SCOPI C, REFLE X CULTU RE urobilinogen , urine Normal mg/dL normal , <2.0 Not Available [facility] (Lab) [address], [place], [address], 05/18/2023 04:22:17 05/17/20 23 05/17/2023 URINA LYSIS , WITH MICRO SCOPI C, REFLE X CULTU RE RBC, urine 0-2 /hpf none, 0-2 Not Available [facility] (Lab) [address], [place], [address], 05/18/2023 04:22:17 05/17/20 23 05/17/2023 URINA LYSIS , WITH MICRO SCOPI C, REFLE X CULTU RE WBC, urine 0-5 /hpf none, 0-5 Not Available [facility] (Lab) [address], [place], [address], 05/18/2023 04:22:17 05/17/20 23 05/17/2023 URINA LYSIS , WITH MICRO SCOPI C, REFLE X CULTU RE squamous epithelial cells, urine Few /hpf none abnormal Not Available [facility] (Lab) [address], [place], [address], 05/18/2023 04:22:17 05/17/20 23 05/17/2023 URINA LYSIS , WITH MICRO SCOPI C, REFLE X CULTU RE bacteria, urine Trace /hpf none abnormal Not Available [facility] (Lab) [address], [place], [address], 05/18/2023 04:22:17 05/17/20 23 05/17/2023 URINA LYSIS , WITH MICRO SCOPI C, REFLE X CULTU RE hyaline cast, urine None /lpf none, 0-2 Not Available [facility] (Lab) [address], [place], [address], 05/18/2023 04:22:17 05/17/20 23 05/17/2023 URINA LYSIS , WITH MICRO SCOPI C, REFLE X CULTU RE mucus, urine Many /hpf none, trace, few abnormal Urine Cultu re not perfo rmed per refle x prosper col. Not Available [facility] (Lab) [address], [place], [address], 05/18/2023 04:22:17 05/17/20 23 05/17/2023 urina lysis , dipst ick Leukocytes trace Not Available [facility] [address], [place], [address], 05/17/2023 15:58:59 05/17/20 23 05/17/2023 urina lysis , dipst ick Nitrite negati ve Not Available [address], [place], [address], 05/17/2023 15:58:59 05/17/20 23 05/17/2023 urina lysis , dipst ick Protein trace Not Available [address], [place], [address], 05/17/2023 15:58:59 05/17/20 23 05/17/2023 urina lysis , dipst ick Blood trace Not Available [address], [place], [address], 05/17/2023 15:58:59 05/17/20 23 05/17/2023 urina lysis , dipst ick Specific Malin 1.020 Not Available [facility] [address], [place], [address], 05/17/2023 15:58:59 05/17/20 23 05/17/2023 urina lysis , dipst ick Glucose normal Not Available [address], [place], [address], 05/17/2023 15:58:59 09/11/20 23 09/11/2023 urina lysis , dipst ick Leukocytes +2 Not Available [facility] [address], [place], [address], 09/11/2023 12:37:23 09/11/20 23 09/11/2023 urina lysis , dipst ick Nitrite normal Not Available [address], [place], [address], 09/11/2023 12:37:23 09/11/20 23 09/11/2023 urina lysis , dipst ick Urobilinogen normal Not Available [facility] [address], [place], [address], 09/11/2023 12:37:23 09/11/20 23 09/11/2023 urina lysis , dipst ick Protein trace Not Available [address], [place], [address], 09/11/2023 12:37:23 09/11/20 23 09/11/2023 urina lysis , dipst ick pH 7 Not Available [address], [place], [address], 09/11/2023 12:37:23 09/11/20 23 09/11/2023 urina lysis , dipst ick Specific Malin 1.015 Not Available [facility] [address], [place], [address], 09/11/2023 12:37:23 09/11/20 23 09/11/2023 urina lysis , dipst ick Ketone normal Not Available [address], [place], [address], 09/11/2023 12:37:23 09/11/20 23 09/11/2023 urina lysis , dipst ick Bilirubin normal Not Available [facility] [address], [place], [address], 09/11/2023 12:37:23 09/11/20 23 09/11/2023 urina lysis , dipst ick Glucose normal Not Available [address], [place], [address], 09/11/2023 12:37:23 09/11/20 23 09/11/2023 urina lysis , dipst ick Appearance normal Not Available [facility] [address], [place], [address], 09/11/2023 12:37:23 09/11/20 23 09/11/2023 urina lysis , dipst ick Color normal Not Available [address], [place], [address], 09/11/2023 12:37:23 1209/13/2023 CULTU RE: URINE result report SEE RESULT S BELOW Test: Cultu re: Urine Speci men Sourc e: Urine Voide d Speci men Type: Urine Speci men Date: 2022 3:45 PM Resul t Date: 2022 5:45 AM Resul t Statu s: Final resul t Abnor mal: No Resul ting Lab: [facility] [address] [facility] [address] Tel: CULTU RE ----- ----- ----- --- No growt h in 1 day (dete ction level of 10,00 0 colon ies / ml.) Not Available [facility] (Lab) [address], [place], [address], 09/15/2023 06:50:26 11/09/19 25 11/09/2024 IMAGE GUIDE D PAP AND HPV REGAR DLESS image guided Pap, HPV regardless of Pap result SEE RESULT S BELOW CASE REPOR T: Cytol ogy Gynec ologi omer Repor t Case: [id number] Autho donny g Provi miles: Madison Marino, ANIBAL Colle cted: 11/09 1142 Order ing Locat ion: [place] Patho log[facility] Recei sandra: 11/10 0712 First Scree n: [place] Hogan, [place] Speci men: Scree nash Pap - Image d, Cervi x STATE MENT OF ADEQU ACY: Satis facto ry for evalu ation Trans forma tion zone compo nent prese nt ----- ----- ----- ----- ----- ----- ----- ----- ----- ----- ----- ----- ----- ----- ----- ----- ----- ---- FINAL DIAGN OSIS: Negat nieves for Intra epith elial Lesshea brunner or Chastity camarillo (NIL) . Elect barbie holder d by London Hogan CT on 025 at 1544 CRA OFFICER ----- ----- ----- ----- ----- ----- ----- ----- ----- ----- ----- ----- ----- ----- ----- ----- ----- ---- HPV RESUL TS: HPV mRNA E6/E7 : No HPV mRNA Detec sarthak NOTE: This high risk HPV mRNA assay detec ts fourt een high- risk HPV types (16, 18, 31, 33, 35, 39, 45, 51, 52, 56, 58, 59, 66, 68) witho ut diffe renti ation . COMME NT: This speci men was revie wed by a Cytot echno logis t and/o r Patho logis t (as indic ated in this repor t) after evalu ation using the Thinp rep Imagi ng Syste m. CLINI OMER INFOR MATIO N: Menst rual Statu s: LMP (if appli cable ): Clini omer Histo ry/Pr eviou s Pap: Type of Neopl lane (if appli cable ): Signi fican t Clini omer Findi ngs: Other Histo ry: Hormo zenon (if appli cable ): PAP EDUCA LIANG L NOTE: The Pap Test is a scree nash test with an inher ent false negat nieves rate. Liqui d-bas ed sampl ing may decre ase, but will not elimi celina, false negat nieves resul ts. A negat nieves resul t does not precl ude the prese nce and/o r devel opmen t of disea se, since the prese nce of abnor mal cells in the sampl e depen ds on the locat ion of the lesio n and sampl ing techn ique. Rosi nued regul ar scree nash is the best metho d of cance r preve ntion . If repor sarthak cytol ogic findi ng do not corre late with physi omer and/o r histo rical findi ngs, furth er inves tigat ion is recom fannie d, as clini turner warra nted. Not Available [facility] (Lab) [address], [place], [address], 11/14/2024 16:48:43 09/20/20 23 09/20/2023 US, pelvi s No observ ation record ed. [email or web address] [address], [place], [address], 09/20/2023 18:13:11 09/20/20 23 09/20/2023 US, trans vagin al No observ ation record ed. [email or web address] [facility] [address], [place], [address], 09/20/2023 18:13:03 09/20/20 23 09/20/2023 US, pelvi s No observ ation record ed. LISA Mony [address], [place], [address], 09/28/2023 12:51:11 Result Notes None recorded. Problems Name Problem SNOMED Code Status Onset Date Resolution Date Notes Provider Name and Address Organization Details Recorded Time Endometr iosis (clinica l) 014183380 Completed 201707/21/2021 Endometr iosis;Re corded Elsewher e: No Locat ion: [facility] S ource: EHR Marketing And Promotions Manager trevor: N Practi ce ID: [id number] Dejon lable Time: 04:00:00 PM Diane rodriguez [facility] 15:18:[address] Concept Completed 201507/21/2021 Encntr for ob gyn physician assistant exam (general ) (routine ) w/o abn findings ;Practic e ID: 0001 Diane rodriguez [facility] 15:18:51 Deep pain on intercou rse [id number] Completed 201707/21/2021 Deep dyspareu mirna;Prac mariam ID: 0001 Diane rodriguez [facility] 15:18:40 Pelvic and perineal pain [id number] Completed 201707/21/2021 Pelvic and perineal pain;Pra ctice ID: 0001 Diane rodriguez [facility] 15:18:47 Urinary tract infectio us disease [id number] Completed 201707/21/2021 Urinary tract infectio n, site not specifie d;Practi ce ID: 0001 Diane Richardson [facility] 15:18:53 Asymptom at microsco pic hematuri a [id number] Completed 201707/21/2021 [facility];Practi ce ID: 0001 Diane Richardson [facility] 15:18:39 Pregnanc y test negative [id number] Completed 201707/21/2021 Encounte r for pregnanc y test, result negative ;Practic e ID: 0001 Diane Richardson [facility] 15:18:48 Blood leukocyt e number above referenc e range [id number] Completed 201907/21/2021 Elevated white blood cell count, unspecif ied;Prac mariam ID: 0001 Diane Richardson [facility] 15:18:45 History of urinary stone [id number] Completed 201907/21/2021 Personal history of urinary calculi; Practice ID: 0001 Diane Richardson [facility] 15:18:[address] Concept Completed 201707/21/2021 Encntr for general adult medical exam w/o abnormal findings ;Recorde d Elsewher e: No Locat ion: Jose Elias claros [facility] S ource: EHR Marketing And Promotions Manager trevor: N Practi ce ID: [id number] Dejon lable Time: 08:30:00 AM Diane rodriguez [facility] 15:18:50 Problem Notes None recorded. Procedures Surgical History Date Name Laterality Status Provider Name and Address Organization Details Recorded Time 10/26/19 25 Date of Last Mammogram completed ABDULKADIR Jacob [facility] 11/09/2024 09:39:57 07/17/20 20 Date of Last Pap Smear completed Diane Richardson [facility] 07/21/2021 15:21:10 10/11/19 20 [facility] 09/11/2023 13:34:33 05/11/20 18 Date of Last Colonoscopy completed Fabiola Blount [facility] 04/28/2023 15:22:35 10/11/19 18 [facility]ripsy [facility] 09/11/2023 13:32:07 10/11/19 17 biopsy of breast completed Anabellemena Craig [facility] 09/11/2023 13:34:51 10/11/19 12 [facility] 09/11/2023 13:35:07 10/11/19 12 Abdominoplasty completed Anabelle Craig [facility] 09/11/2023 13:30:10 10/11/19 11 Endometrial Ablation completed Anabellemena Craig [facility] 09/11/2023 13:33:58 10/11/19 10 lithotripsy completed Anabellemena Craig [facility] 09/11/2023 13:33:25 10/11/19 09 Hernia repair w/mesh [facility] 09/11/2023 13:30:17 08/09/20 08 section completed Anabellemena Craig [facility] 09/11/2023 13:32:37 08/18/20 06 section completed [facility] 09/11/2023 13:32:29 10/11/19 05 Laparoscopy completed [facility] 09/11/2023 13:35:38 10/11/18 95 lumbar spinal fusion completed [facility] 09/11/2023 13:31:56 Endometrial Ablation completed [facility] 11/09/2024 09:35:06 Laparoscopy completed [facility] 11/09/2024 09:35:06 Abdominoplasty completed [facility] 11/09/2024 09:35:06 Breast Biopsy completed [facility] 11/09/2024 09:35:06 Imaging Results Imaging Date Name Status LastModified by Organization Details LastModified Time 09/20/2023 US, pelvis completed [email or web address] [facility] [address], [place], [address], 09/20/2023 18:13:11 09/20/2023 US, [facility]vaginal [email or web address] [address], [place], [address], 09/20/2023 18:13:03 09/20/2023 US, pelvis completed LISA Mony [address], [place], [address], 09/28/2023 12:51:11 Procedure Notes None recorded. Medical Equipment None Reported. Allergies Allergen ID Allergen Name Allergen Category Reaction Reaction Severity Criticality Documentation Date Start Date Code Code System Note Provider Name and Address Organization Details Recorded Time 74502 ciproflox acin medicatio n diarrhea Not available Not available 09/27/2020 2551 RxNorm [facility] 3 16:02:14 2005 Non-stero idal anti-infl ammatory agent (product) medicatio n Not available Not available Not available 06/21/2020 73521 005 SNOMED FACE IVANA De La Cruz [facility], [facility] 3 16:02:30 2291 aspirin medicatio n Not available Not available Not available 07/17/2020 1191 RxNorm SHIV De La Cruz [facility], [facility] 3 16:02:24 2292 Cipro medicatio n Not available Not available Not available 07/17/2020 06071 3 RxNorm Diane Richardson [facility], [facility] 1 16:42:24 2293 clarithro mycin medicatio n Not available Not available Not available 07/17/2020 25663 RxNorm Estefany Hawk [facility], [facility] 0 09:43:54 2294 erythromy cinthia medicatio n vomiting Not available Not available 07/17/2020 4053 RxNorm Estefany Hawk [facility], [facility] 0 09:44:00 2295 wheat gluten extract food Not available Not available Not available 07/17/2020 92152 81 RxNorm Estefany Hawk [facility], [facility] 0 09:44:06 2296 ibuprofen medicatio n Not available Not available Not available 07/17/2020 5640 RxNorm Estefany Hawk [facility], [facility] 0 09:44:11 2297 midazolam medicatio n Not available Not available Not available 07/17/2020 6960 RxNorm Estefany Hawk [facility], [facility] 0 09:44:20 2298 naproxen medicatio n Not available Not available Not available 07/17/2020 7258 RxNorm Estefany Hawk [facility], [facility] 0 09:44:25 2299 tramadol medicatio n hallucina tions Not available Not available 07/17/2020 54895 RxNorm Smitha De La Cruz null, [facility] 3 16:01:37 24133 Biaxin medicatio n Not available Not available Not available 09/11/2023 89406 9 RxNorm Anabelle Craig [facility] 3 13:37:34 Medications Name Sig Start [...] Prescrib ed Elsewher e: No Locat ion: [facility] odify By: deloris manning DateTime : 06/24/20 [...] Prescrib ed Elsewher e: Yes Loca tion: [facility] odify By: jocelyn maguire DateTime : 04/01/20 17 08:30:00 AM Not [...] Prescrib ed Elsewher e: Yes [facility] By: jocelyn maguire DateTime : 03/25/20 16 10:00:00 AM Not Available Not Available Not Available ciproflox acin 500 mg tablet take 1 tablet by oral route every 12 hours 07/08 completed Prescrib ed Elsewher e: No Locat ion: [facility] odify By: deloris manning DateTime : 07/07/20 [...] e: No Locat ion: Jose Elias claros [facility] odify By: Encount er DateTime : 07/08/20 18 01:50:33 [...] Prescrib ed Elsewher e: No Locat ion: [facility] odify By: deloris Perales ter DateTime : 06/27/20 18 10:38:40 AM Not Available Not Available Not Available Quasense 0.15 mg-30 mcg (91) tablets,3 month dose pack take 1 tablet by oral route every day 06/27 completed Prescrib ed Elsewher e: No Locat ion: [facility] odify By: deloris Perales ter DateTime : 06/20/20 18 01:00:00 PM Not Available Not Available Not Available Pataday 0.2 % eye drops instill 1 drop by ophthalm ic route every day into affected eye(s) active Prescrib ed Elsewher e: Yes Loca tion: Jose Elias claros [facility] odify By: [email or web address] z Diaz ter DateTime : 07/07/20 18 04:00:00 PM [...] Prescrib ed Elsewher e: Yes Loca tion: [facility] odify By: [email or web address] z Encoun ter DateTime : 07/07/20 18 [...] Updated DateTime 04/28/2023 165.1 cm 42.4 kg/m2 052719.05 g Fabiola Blount [facility] 04/28/2023 15:22:17 Date Recorded Systolic blood pressure Diastolic blood pressure Provider Name and Address Organization Details Last Updated DateTime 04/28/2023 122 mm[Hg] 80 mm[Hg] Hannah Sharma, [facility]- [address], [place], [address], [facility] 04/28/2023 15:37:39 Date Recorded Body height Body mass index (BMI) Body weight Systolic blood pressure Diastolic blood pressure Provider Name and Address Organization Details Last Updated DateTime 05/17/2023 165.1 cm 42.8 kg/m2 131711.2 4 g 137 mm[Hg] 85 mm[Hg] Smitha De La Cruz [facility] 3 15:57:09 Date Recorded Body height Body mass index (BMI) Body weight Systolic blood pressure Diastolic blood pressure Provider Name and Address Organization Details Last Updated DateTime 09/11/2023 165.1 cm 42.4 kg/m2 438604.0 5 g 127 mm[Hg] 82 mm[Hg] Anabelle Rafa [facility] 3 10:23:27 Date Recorded Body height Body mass index (BMI) Body weight Systolic blood pressure Diastolic blood pressure Provider Name and Address Organization Details Last Updated DateTime 11/09/2024 165.1 cm 43.3 kg/m2 518668.0 2 g 131 mm[Hg] 82 mm[Hg] ABDULKADIR Jacob [facility] 5 09:37:40 Social History Question Answer Notes LastModified by Organizat ion Details LastModified Time Tobacco Smoking Status Never Smoker Pat Soriafreda rodriguez, [facility] 09/20/2023 16:18:57 Do You Have An [...] Or The Highest Degree You Have Received? [id number] Information not available 07/22/2021 What Is Your [...] Anxious, Or Unable To Sleep At Night)? [id number] Information not available 07/21/2021 Do You Use Any Illicit Or Recreational Drugs? No Information not available 07/21/2021 Do You Use Sunscreen Routinely? Yes Information not available 07/21/2021 Have You Used IV Drugs? No Information not available 07/22/2021 Sex: Unknown Functional Status Question Answer Note LastModified by Organizat ion Details LastModified Time Do you have difficulty walking or climbing stairs? No [email or web address] Information not available 11/09/2024 Are you able to walk? YESWOREST Information not available 07/21/2021 Do you have difficulty dressing or bathing? No [email or web address] Information not available 11/09/2024 What is your exercise level? Occasional Information not available 04/28/2023 Mental Status None recorded. Family History Relationship Description Onset Age of this Age Resolved Age Notes LastModified by Organization Details LastModified Time Mother Carcinoma in situ of breast [email or web address] Not available 2024 09:33:23 Mother Hypercholest erolemia [email or web address] Not available 2019 09:36:28 Mother Excision of cyst of ovary [email or web address] Not available 2024 09:33:23 Mother Asthma [email or web address] Not available 09:37:03 Maternal Grandmother Hypercholest erolemia [email or web address] Not available 2019 09:36:28 Maternal Grandmother Excision of cyst of ovary Not available 2024 09:33:23 Paternal Grandmother Hypercholest erolemia [email or web address] Not available 2019 09:36:28 Maternal Grandfather Asthma [email or web address] Not available 2019 09:37:03 Brother Asthma [email or web address] Not available 1 09:37:03 Father Diabetes mellitus [email or web address] Not available 2019 09:37:12 Father Depressive disorder [email or web address] Not available 2019 09:37:23 Paternal Grandfather Disorder of cardiovascul ar system [email or web address] Not available 2024 09:33:23 Paternal Grandfather Carcinoma in situ of lung [email or web address] Not available 09:33:23 Medical History Condition Response [...] SNOMED-CT Code Diagnosis ICD10 Code Diagnosis Note [id number] Hannah Sharma [facility] [address] [address] 06/21/2020 14:59:25 06/21/2020 17:18:05 Mass of right breast [id number] 0847177 N63.10 Exam warrants need for further imaging [...] of care. Mass of left breast 1224 473220 8801203 N63.20 [id number] Hannah Sharma [facility] [address],[place] [address] 07/17/2020 09:32:02 07/17/2020 10:22:59 Gynecologic examination 93124479 Z01.419 Suggested Calcium with Vitamin D 1200-1500m g daily. Patient advised to get an annual flu shot in the fall and she could obtain at [facility] or [facility] take care clinic. Also to obtain TDap vaccinatio [...] week. No other issues or complaints . [id number] Hannah Sharma , [facility] [address],[place] [address] 07/18/2021 16:24:19 07/21/2021 20:17:51 Urinary symptoms 412568940 R39.9 [id number] Hannah Sharma , [facility] [address],[place] [address] 07/22/2021 09:31:43 07/22/2021 10:58:46 Urinary symptoms 348949592 R39.9 Gynecologi c examination 97568115 Z01.419 Suggested Calcium with Vitamin D 1200-1500m g daily. Patient advised to get an annual flu shot in the fall and she could obtain at [facility] or [facility] care clinic. Also to obtain TDap vaccinatio [...] complaints . History of calculus of kidney 804464258 Z87.442 R10.9 R35.0 We will set up [...] to patient satisfacti on. Pain in pelvis 84099162 R10.2 R10.9 [id number] Hannah Sharma [facility] [address],[place] [address] 04/28/2023 15:07:27 04/28/2023 15:40:57 Urinary symptoms 740313816 R39.9 Suspect UTIUrine culture sentRx sentAzo/Cy stex OTC prn Time spent in visit is a total of 15 mins with at least 50% of visit consisting of counseling and review of plan of care. [id number] Adam Magana MD [facility] [address],[place] [address] 05/17/2023 15:39:12 05/17/2023 16:29:18 Urinary symptoms 075491403 R39.9 [id number] Hannah Sharma [facility] [address],[place] [address] 09/11/2023 10:03:43 09/14/2023 12:01:45 Pain in pelvis 70593485 R10.2 This patient is a 43 -year-old [...] Immediatel y with nausea, vomiting, fever, chills. [id number] Elizabeth [facility] [address],[place] [address] 09/20/2023 16:18:36 09/20/2023 17:29:18 Pain in pelvis 26743665 R10.2 [id number] MAGGIE Johnson [facility] [address],[place] [address] 11/09/2024 09:33:15 11/09/2024 11:54:37 Gynecologic examination 68770111 Z01.419 WWEBC - Partner with vasectomyP ap - done todaySTI screen - declinedMa mmogram - UTD/sitema nColon cancer screening - UTDRoutine labs - UTD/PCPRTC in 1 yr or [...] ID Guarantor Name 04/28/2023 1 [place] [id number] Damon Nicole [id number] Damon Nicole 05/17/2023 1 [place] [id number] Damon Nicole [id number] Damon Nicole 09/11/2023 1 [place] [id number] Damon Nicole [id number] Damon Nicole 09/20/2023 1 [place] [id number] Damon Nicole [id number] Damon Nicole 11/09/2024 1 PHAN [place] [id number] Damon Nicole [id number] AB Damon Nicole Notes Date Note Type Note Provider Name and Address Organization Details Recorded Time 3 text/html Here today for urinary sx's of urinary urgency, bladder spasms and frequency since returning this week from vacation. Neg pain of abd/pelvis/flankNeg GI sx'sNeg N/V/F/C/DNeg Vag d/c, odor, irritation, itching Hannah Sharma, [facility] [address], [place], [address], [facility] 04/28/2023 15:39:26 3 text/html this patient [...] await culture and urinalysis. Spent 20 minutes sbiu-zg-hopl. More than 50% was counseling. Adam Magana MD [address], [place], [address], [facility] 05/17/2023 16:25:45 3 text/html Kaylie is [...] Vag d/c, odor, irritation, itchingNeg monogamous Hannah Friederich, WHNP- [address], [place], [address], [facility] 09/14/2023 11:44:58 5 text/html Annual GYNReported [...] mammogramcolonoscopy UTD MAGGIE Johnson [address], [place], [address], [facility] 11/09/2024 11:46:11 OBGyn Episode Ob Episode Information Episode Created Date Number of Fetuses Patient Bloodtype Patient rh Status Prepregnancy Weight lbs Domestic Partner Domestic Partner Phone Father Name Vault Maker Status 07/17/20 20 1 DELETED Jose Calculation [...] Domestic Partner Domestic Partner Phone Father Name Vault Maker Status 07/17/20 20 1 CLOSED Fetus Data [...] Domestic Partner Domestic Partner Phone Father Name Vault Maker Status 07/17/20 20 1 DELETED Jose Calculation [...] Domestic Partner Domestic Partner Phone Father Name Vault Maker Status 07/17/20 20 3 CLOSED Fetus Data First Name Last Name Admitted to NICU Weight (g) Sex Living Outcome Pediatric Complications Fetus ID Race Codes Race Delivery Type 1785.79 1704 F Prematur e 5119 Repeat 1757.66 9 F Prematur e 73330 Repeat 1672.39 3704 F Prematur e 09771 Repeat Jose Calculation Initial Jose Date Initial Exam Date Initial Exam Provider Initial Ultrasound Date Last Menstrual Period Date Ultra Sound Weeks Gestation 0 Eighteen To Twenty Week Ojse Update Ultra Sound Date Fundal Height At [...]
--- OUTSIDE RECORDS SUMMARY | 2024-11-26 09:04 | XMS_ITS ---
Author Organization [facility] Address [address] [place], [place] [id number] Care Team Providers Care Bridge Club Manager Name Role Phone KYLEE Rahman Unavailable [phone] Answer, Declined Unavailable Unavailable MARIO GREEN Unavailable [phone] REASON FOR VISIT The patient is here to be dispensed and fitted for custom orthotics. She has plantar fascitis and unequal limb length Encounters Encounter Location Date Provider Diagnosis [facility] [place] [address] [place], [place] [id number] 09/04/2024 MARIO GREEN Plantar fascial fibromatosis M72.2 [...] * LEOPOLDO BECK RDOB:1980 (44 yo F)Acc No.[id number]:09/04/2024 Patient: LEOPOLDO LANDAVERDE Provider: Ck Green DPM :1980 A ge:44 Y S ex:Female Date:09/04/2024 Address:[address] [place] [address] BLA[address] CU[address]O [id number] Subjective: * Chief Complaints: * T he patient is here to be dispensed and fitted for custom orthotics. She has plantar fascitis and unequal limb length * ROS: G eneral / Constitutional: Patient denies c hills, fever, weakness, night sweats. M usculoskeletal: Patient denies c hildhood foot problems, weakness. P atient complains of l imb length ineqaulity, orthotic use, arch pain, heel pain. P eripheral Vascular: Patient denies u lceration of feet, cold extremities. ? S kin: Patient denies u lcerations, discoloration. ? N eurologic: Patient denies b alance difficulty, confusion, difficulty speaking, dizziness. * Medical History: * Surgical History: * Hospitalization/Major Diagno stic Procedure: * Medications: Objective: * Vitals: * Examination: C onstitutional: Constitutional T he patient is awake, alert, well developed, well groomed and well nourished. D ermatologic: Skin findings: S kin is warm, dry, supple with no breaks in the skin. V ascular: Dorsalis pedis pulse: 2 /4, bilateral. Posterior tibial pulse: 2 /4, bilateral. Capillary refill: l ess than 3 seconds. Edema: N o edema, bilateral. N eurologic: Gross sensation G ross sensation is intact to light touch.? M usculoskeletal: Muscle Strength M uscle strength is 5/5 in regards to dorsiflexion, plantarflexion, inversion, and eversion in bilateral lower extremities. Pain on palpation m edial band of the right plantar fascia near its attachment to the calcaneus, medial band of the left plantar fascia near its attachment to the calcaneus. Assessment: * Assessment: 1. P lantar fascial fibromatosis - M72.2 (Primary) 2 . U nequal limb length (acquired), unspecified tibia and fibula - M21.769 3 . P ain in right foot - M79.671 4 . L eft foot pain - M79.672 Plan: * Treatment: 2. U nequal limb length (acquired), unspecified tibia and fibula Notes: Orthotic Dispense: The orthotic devices were dispensed and fitted. It was noted that the orthotic conformed well to the patient's foot in the subtalar joint neutral position. The patient was educated on the device's use, as well as the gradual break-in period for the device. * Procedure Codes: * Follow Up: p rn * Billing Information: * Visit Code: 31008 Office Visit, Est Pt., Level 3. * Procedure Codes: * RVISOR PILE DRIVING Sign off status: Completed true * Provider: Ck Green DPM Date: 11/04/2023 Generated for Eder fleming/Leeanne/Raisa on: 0 11/26/2024 09:03 AM SUPERVISOR PILE DRIVING History and Physical Notes * Examination Category [...]
--- OUTSIDE RECORDS SUMMARY | 2024-11-26 09:04 | XMS_ITS | Encounter Summary ---
Author Organization [facility] Address [address] [place] [address] Care Team Providers Care Patent Leather Sorter Name Role Phone Gloria Urbina MD Primary Care Provider Reason for Visit * Reason Onset Date Comments Med Refill 10/31/2024 Encounter Details Date Type Department Care Team (Late st Contact Info) Description 10/31/2024 Telephone [facility] Cardiology [address] [place] [address] Juan eHnley MD [address] [facility] [address] [facility] [address] [place] [address] Med Refill Social History Tobacco [...] 10 mg sent to pharmacy at requested. RAL MILLING SUPERINTENDENT * Telephone Encounter - Marisela Blake - 11/01/2024 2:05 PM CST Patient returning call. Requesting a call back. Please advise. Thank you. Contact [phone] RAL MILLING SUPERINTENDENT * Telephone Encounter - Amy Sanchez MA - 11/01/2024 1:57 PM CST LM asking pt to call office RAL MILLING SUPERINTENDENT * Telephone Encounter - Amy Sanchez MA - 10/31/2024 1:[address] Henley, Will you be prescribing pt's Crestor and should she be on 20 mg or 10 mg? Please advise? Thank you RAL MILLING SUPERINTENDENT * Telephone Encounter - Marisela Blake - 10/31/2024 12:24 PM CST Patient requesting refill for rosuvastatin (CRESTOR) 10 mg one tab by mouth daily. with 90 day supply. Please send to [facility] pharmacy. Thank you. Contact [phone] RAL MILLING SUPERINTENDENT documented in this encounter Plan of Treatment Not on file documented as of this encounter Visit Diagnoses Not on filedocumented in this encounter Care Teams Patent Leather Sorter Relationship Specialty Start Date End Date Gloria Urbina MD [facility] [address] [place] [phone] PCP - General Family Practice 09/19/24 documented as of this encounter
--- OUTSIDE RECORDS SUMMARY | 2024-11-26 09:04 | XMS_ITS | Clinical Summary ---
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
--- OUTSIDE RECORDS SUMMARY | 2024-11-26 09:04 | XMS_ITS ---
Author Organization [facility] Address [address] [place], [place] [id number] Care Team Providers Care Insurance Representative Name Role Phone KYLEE Rahman Unavailable [phone] Answer, Declined Unavailable Unavailable SNOOK, MARIO Unavailable [phone] REASON FOR VISIT Plantar fasciitis fu Encounters Encounter Location Date Provider Diagnosis [facility] [place] [address] [place], [place] [id number] 07/03/2024 MARIO GREEN Plan Of Treatment No Information Progress Notes * KIRAN LEOPOLDO RDOB:1980 (44 yo F)Acc No.[id number]:07/03/2024 Patient: LEOPOLDO LANDAVERDE Provider: Ck Green DPM :1980 A ge:44 Y S ex:Female Date:07/03/2024 Address:[address] [facility] Subjective: * Chief Complaints: * 1 . Plantar fasciitis fu. * Medical History: Objective: * Vitals: Assessment: Plan: * Treatment: * Billing Information: * Visit Code: * Procedure Codes: * Electronic signature of MARIO GREEN DPM on 11/26/2024 at 09:04 AM PAYMENT POSTER Sign off status: Pending * Provider: Ck Green DPM Date: 0 07/03/2024 Generated for Printi ng/Faxing/eTransmitting on: 0 11/26/2024 09:04 AM PAYMENT POSTER
--- OUTSIDE RECORDS SUMMARY | 2024-11-26 09:04 | XMS_ITS | Clinical Summary ---
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
--- OUTSIDE RECORDS SUMMARY | 2024-11-26 09:04 | XMS_ITS | Encounter Summary ---
Author Organization [facility] Address [address] [place] [address] Care Team Providers Care Print Developer Name Role Phone Michael Acharya MD Primary Care Provider [phone] Sarita Lopez NP Primary Care Provider [phone] Cristina Navarro NP Primary Care Provider + Gloria Urbina MD Primary Care Provider Encounter Details Date Type Department Care Team (Late st Contact Info) Description 08/05/2020 Telephone [facility] [address] [place] [address] Bentley Mehta, Social History Tobacco Use [...] on filedocumented in this encounter Care Teams Print Developer Relationship Specialty Start Date End Date Michael Acharya MD [address] [place] [address] PCP - General 07/26/17 07/19/22 Sarita Lopez NP [address] [place] [address] PCP - General Nurse Practitioner 07/20/22 12/02/23 Cristina Navarro NP [address] [place] [address] [address] [place] [phone] PCP - General Nurse Practitioner 12/03/23 09/18/24 Gloria Urbina MD [address] [place] [address] [address] [place] [id number] PCP - General Family Practice 09/19/24 documented as of this encounter
--- OUTSIDE RECORDS SUMMARY | 2024-11-26 09:04 | XMS_ITS ---
Author Organization [facility] Address [address] [place], [place] [id number] Care Team Providers Care Supervisor Cook Room Name Role Phone KYLEE Rahman Unavailable [phone] Answer, Declined Unavailable Unavailable MARIO GREEN Unavailable [phone] Allergies Allergen (clinical drug ingredient) Drug/Non Drug [...] Location Date Provider Diagnosis [facility] [address] [place], [place] [id number] 07/31/2024 MARIO GREEN Plantar fascial fibromatosis M72.2 [...] Orthotic dispense x 1 Progress Notes * LEOPOLDO BECK RDOB:1980 (44 yo F)Acc No.[id number]:07/31/2024 Patient: LEOPOLDO LANDAVERDE Provider: Ck Green DPM :1980 A ge:44 Y S ex:Female Date:07/31/2024 Address:[address] [place], [place] [id number] Subjective: * Chief Complaints: * 1 . The patient is wishes to pursue custom orthotics. She has plantar fascitis and it is made worse by her limb length issue. Custom orthotics help. * HPI: H PI: Follow Up Visit P regis presents for follow up visit for orthotics. Patient talked to her insurance and is able to be scanned for 1 pair of orthotics. , MA: lauren. * ROS: G eneral / Constitutional: Patient [...] difficulty speaking, dizziness. * Medical History: * Allergies: T ape: Allergy, Anti-Inflammatory Enzyme: Allergy. Objective: * Vitals: * Examination: C onstitutional: [...] length (acquired), unspecified tibia and fibula Notes: The patient was scanned for custom orthotics while held in subtalar joint neutral position.? * Procedure Codes: L 3020 FT INSRT REMV MOLD LNGTUDNL SUPP EA, Modifiers: RT , GA, L3020 FT INSRT REMV MOLD LNGTUDNL SUPP EA, Modifiers: LT , GA * Follow Up: 4 Weeks (Reason: Orthotic dispense x 1) * Billing Information: * Visit Code: 58668 Office Visit, Est Pt., Level 3. * Procedure Codes: L3020 FT INSRT REMV MOLD LNGTUDNL SUPP EA. Modifiers: RT, GA L3020 FT INSRT REMV MOLD LNGTUDNL SUPP EA. Modifiers: LT, GA * Sign off status: Completed true * Provider: Ck Green DPM Date: Generated for Eder fleming/Leeanne/eTransmitting on: 0 11/26/2024 09:04 AM STUNT WOMAN History and Physical Notes * HPI (History [...]
--- OUTSIDE RECORDS SUMMARY | 2024-11-26 09:05 | XMS_ITS | Encounter Summary ---
Author Organization [facility] Address [address] [facility] [place] [address] Care Team Providers Care Supervisor Uranium Processing Name Role Phone Renetta Vasquez MD Primary Care Provider Un available Encounter Details Date Type Department Care Team (Late st Contact Info) Description 08/12/2023 Lab Requisition [facility] - DermPath Lab [address] [facility], [place] [phone] Shavonne Anders MD [address] [facility] [address] [place] [address] Social History Tobacco Use Types Packs/Day Years [...] 1:55 PM CDT) Case Report Dermatopathology Report Case: [id number] Authorizing Provider: Shavonne Anders MD Collected: 08/12/2023 01:55 PM Ordering Location: [facility] DermPath Lab Received: 08/13/2023 01:19 PM Pathologist: Alexia Rogers MD Specimen: Skin, chin 3:23 PM [facility] Final Diagnosis Specimen A. 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 The specimen consists of a shave biopsy measuring 5x3x1 mm. Jar 0. 3:23 PM [facility] Microscopic Description Specimen A. SKIN, [...] larger lesion, these findings may not be access service representative of the entire lesion. Clinicopathologic correlation is recommended. 3 3:23 PM [facility] Disclaimer An external and internal positive and negative controls are appropriate for the histochemical, immunohistochemical and immunofluorescence stain(s) in this case (if any), except where stated explicitly. The performance characteristics of the stain(s) cited in this report were developed and its performance characteristic determined by the Dermatopathology Laboratory at [facility], directed by Dr. Kelly Crane. These tests need not be, and therefore are not, approved by the [place] Food and Drug Administration. The tests are used for clinical purposes. Billing Codes Specimen Charges Stain Charges 40524 1 3 3:23 PM [facility] Embedded Images 3 3:23 PM [facility] Pathology/Cytolo gy TISSUE SPECIMEN FROM SKIN / Unknown 08/12/2023 1:55 PM CDT 08/13/2023 1:19 PM CDT Shavonne Anders MD LAB - PATHOLOGY/CYTO LOGY ORDERABLES DERMATOPATHOLOGY LABORATORY [facility] - Department of Dermatology [facility] [address] [facility], 3rd Floor [address] [phone] documented in this encounter Visit Diagnoses Not on filedocumented in this encounter Care Teams Supervisor Uranium Processing Relationship Specialty Start Date End Date Renetta Vasquez MD [address] [address] PCP - General 12/29/19 documented as of this encounter
--- OUTSIDE RECORDS SUMMARY | 2024-11-26 09:05 | XMS_ITS | Referral Summary ---
Author Organization [facility] Address [address] [place] [address] Care Team Providers Care Overseer Kosher Kitchen Name Role Phone Renetta Vasquez MD Primary Care Provider Un available Source Comments [facility],non-owned Affiliates and Associated Physician Practices is amultiple site organization consisting of ambulatory clinics and hospital sitesin [place], [place], [place] and [place]. This disclosure is being madepursuant to the Care Everywhere program and may not contain all information available regarding this patient. Last updated 18.[facility] Encounters Date Type Department Care Team Description 09/05/2024 Lab Requisition [facility] - DermPath Lab [address] [place] [phone] Carla Mcdaniels DO from Last 3 Months [...] Acetaminophen (TYLENOL PO) Active Cholecalciferol (VITAMIN D3) 77271 units capsule 03/09/2019 Active sertraline (ZOLOFT) 50 [...] 72 04/03/2019 1:10 PM CDT Temperature 36.6 C (97.8 F) 09/19/2018 1:50 PM CLOCK REPAIR TECHNICIAN Respiratory Rate 21 04/03/2019 1:10 PM CDT [...] Diagnosis Comments DERMATOPATHOLOGY Routine 09/05/2024 8:13 AM CLOCK REPAIR TECHNICIAN ENDOSCOPY, COLON, DIAGNOSTIC Routine 04/03/2019 11:38 AM CDT Chronic diarrhea from Last 3 Months or Most Recently Relevant to Health Maintenance Results * DERMATOPATHOLOGY (09/05/2024 8:13 AM [facility]) Case Report Dermatopathology Report Case: [id number] Authorizing Provider: Carla Mcdaniels DO Collected: 09/05/2024 08:13 AM Ordering Location: [facility] - Received: 09/05/2024 12:38 PM DermPath Lab Pathologist: Lelo Reid MD Specimen: Skin, left chin 11:11 AM [facility] DERMATOPATHOLOGY LABORATORY Final Diagnosis Specimen A. SKIN, left chin: BENIGN VERRUCOUS KERATOSIS (L82.1) (see microscopic description and comment) 11:11 AM [facility] DERMATOPATHOLOGY LABORATORY Clinical History R/O NMSC 11:11 AM [facility] DERMATOPATHOLOGY LABORATORY Gross Description Specimen A: Received is one formalin filled container labeled with the patient's name and designated left chin. The specimen consists of a shave biopsy measuring 3x3x1 mm. Jar 0. 11:11 AM [facility] DERMATOPATHOLOGY LABORATORY Microscopic Description Specimen A. SKIN, left chin: Sections show hyperkeratosis, papillomatosis, hypergranulosis, and acanthosis. These histological findings can be seen in a verruca vulgaris or a seborrheic keratosis. Additional deeper sections were obtained and reviewed. COMMENT: Given the superficial nature of the biopsy specimen, a deeper dermal process cannot be excluded. 11:11 AM [facility] DERMATOPATHOLOGY LABORATORY Disclaimer An external and internal [...] purposes. Billing Codes Specimen Charges Stain Charges 28804 1 4 11:11 AM CLOCK REPAIR TECHNICIAN DERMATOPATHOLOGY LABORATORY Embedded Images 4 11:11 AM CLOCK REPAIR TECHNICIAN DERMATOPATHOLOGY LABORATORY Pathology/Cytolo gy TISSUE SPECIMEN FROM SKIN / Unknown 09/05/2024 8:13 AM CLOCK REPAIR TECHNICIAN 09/05/2024 12:38 PM CLOCK REPAIR TECHNICIAN Carla Mcdaniels DO LAB - PATHOLOGY/C YTOLOGY ORDERABLES DERMATOPATHOLOGY LABORATORY [facility] - Department of Dermatology [facility] [address] [place] [address], [address] [phone] * ENDOSCOPY, COLON, DIAGNOSTIC (04/03/2019 11:38 AM CDT) Report Endoscopy POC _ Patient Name: Leopoldo Beck Procedure Date: 04/03/2019 11:38 AM Date of : 1980 Admit Type: Outpatient Age: 38 Gender: Female Ethnicity: Not or Race: White Attending MD: Adilene Templeton MD _ Procedure: Colonoscopy Indications: Chronic diarrhea Providers: Adilene Templeton MD (Doctor), Elenita Gonzalez RN Referring MD: Michael Acharya (Referring MD) Medicines: Monitored Anesthesia Care Complications: No immediate complications. _ Procedure: Pre-Anesthesia Assessment: - Prior to the procedure, a History and Physical was performed, and patient medications and allergies were reviewed. The patient's tolerance of previous anesthesia was also reviewed. The risks and benefits of the procedure and the sedation options and risks were discussed with the patient. All questions were answered, and informed consent was obtained. Prior Anticoagulants: The patient has taken no previous anticoagulant or antiplatelet agents. ASA Grade Assessment: II - A patient with mild systemic disease. After reviewing the risks and benefits, the patient was deemed in satisfactory condition to undergo the procedure. After I obtained informed consent, the scope was passed under direct vision. Throughout the procedure, the patient's blood pressure, pulse, and oxygen saturations were monitored continuously. The Colonoscope was introduced through the anus and advanced to the terminal ileum, with identification of the appendiceal orifice and IC valve. The terminal ileum, ileocecal valve, appendiceal orifice, and rectum were photographed. The quality of the bowel preparation was evaluated using the BBPS ([place] Bowel Preparation Scale) with scores of: Right Colon = 3, Transverse Colon = 3 and Left Colon = 3 (entire mucosa seen well with no residual staining, small fragments of stool or opaque liquid). The total BBPS score equals 9. Impression: - The examined portion of the ileum was normal. - The entire examined colon is normal. Biopsied. Findings: The perianal and digital rectal examinations were normal. The terminal ileum appeared normal. The colon (entire examined portion) appeared normal. Biopsies for histology were taken with a cold forceps from the entire colon for evaluation of microscopic colitis. _ Recommendation: - Patient has a contact number available for emergencies. The signs and symptoms of potential delayed complications were discussed with the patient. Return to normal activities tomorrow. Written discharge instructions were provided to the patient. - Resume previous diet. - Continue present medications. - Await pathology results. - Repeat colonoscopy at age 49 for screening purposes. - Return to GI clinic as previously scheduled. Procedure Code(s): --- Professional --- 82208, Colonoscopy, flexible; with biopsy, single or multiple --- Technical --- 18746, Colonoscopy, flexible; with biopsy, single or multiple Diagnosis Code(s): --- Professional --- K52.9, Noninfective gastroenteritis and colitis, unspecified --- Technical --- K52.9, Noninfective gastroenteritis and colitis, unspecified CPT copyright 2017 [employer]. All rights reserved. The codes documented in this report are preliminary and upon certified professional coder review may be revised to meet current compliance requirements. Adilene Templeton MD Adilene Templeton MD 04/03/2019 12:54:48 PM Number of Addenda: 0 Note Initiated On: 04/03/2019 11:38 AM [facility] ENDOSCOPY 04/03/2019 11:3 8 AM CDT Adilene Templeton MD GI PROCEDURE DAMIEN BOOTH [facility] Organization Address City/State/ZIP Co de Phone Number [facility] ENDOSCOPY from Last 3 Months or Most Recently Relevant to Health Maintenance Care Teams Overseer Kosher Kitchen Relationship Specialty Start Date End Date Renetta Vasquez MD [address] [facility] [place] [address] PCP - General 12/29/19
--- OUTSIDE RECORDS SUMMARY | 2024-11-26 09:05 | XMS_ITS | Encounter Summary ---
Author Organization [facility] Address [address] [place] [address] Care Team Providers Care Cuff Folder Name Role Phone Renetta Vasquez MD Primary Care Provider Un available Encounter Details Date Type Department Care Team (Late st Contact Info) Description 09/05/2024 Lab Requisition [facility] - DermPath Lab [address] [facility], [place] [phone] Carla Mcdaniels DO [address] [facility] 3 [place] [address] Social History Tobacco Use Types Packs/Day Years [...] Diagnosis Comments DERMATOPATHOLOGY Routine 09/05/2024 8:13 AM MEDICAL INFORMATION OFFICER documented in this encounter Results * DERMATOPATHOLOGY (09/05/2024 8:13 AM MEDICAL INFORMATION OFFICER) Case Report Dermatopathology Report Case: [id number] Authorizing Provider: Carla Mcdaniels DO Collected: 09/05/2024 08:13 AM Ordering Location: [facility] - Received: 09/05/2024 12:38 PM DermPath Lab Pathologist: Lelo Reid MD Specimen: Skin, left chin 11:11 AM MEDICAL INFORMATION OFFICER DERMATOPATHOLOGY LABORATORY Final Diagnosis Specimen A. SKIN, left chin: BENIGN VERRUCOUS KERATOSIS (L82.1) (see microscopic description and comment) 4 11:11 AM [facility] DERMATOPATHOLOGY LABORATORY Clinical History R/O NMSC 4 11:11 AM [facility] DERMATOPATHOLOGY LABORATORY Gross Description Specimen A: Received is one formalin filled container labeled with the patient's name and designated left chin. The specimen consists of a shave biopsy measuring 3x3x1 mm. Jar 0. 4 11:11 AM [facility] DERMATOPATHOLOGY LABORATORY Microscopic Description Specimen A. SKIN, left chin: Sections show hyperkeratosis, papillomatosis, hypergranulosis, and acanthosis. These histological findings can be seen in a verruca vulgaris or a seborrheic keratosis. Additional deeper sections were obtained and reviewed. COMMENT: Given the superficial nature of the biopsy specimen, a deeper dermal process cannot be excluded. 11:11 AM [facility] DERMATOPATHOLOGY LABORATORY Disclaimer An external and internal positive and negative controls are appropriate for the histochemical, immunohistochemical and immunofluorescence stain(s) in this case (if any), except where stated explicitly. The performance characteristics of the stain(s) cited in this report were developed and its performance characteristic determined by the Dermatopathology Laboratory at [facility], directed by Dr. Kelly Crane. These tests need not be, and therefore are not, approved by the [place] Food and Drug Administration. The tests are used for clinical purposes. Billing Codes Specimen Charges Stain Charges 97634 1 4 11:11 AM [facility] DERMATOPATHOLOGY LABORATORY Embedded Images 4 11:11 AM [facility] DERMATOPATHOLOGY LABORATORY Pathology/Cytolo gy TISSUE SPECIMEN FROM SKIN / Unknown 09/05/2024 8:13 AM MEDICAL INFORMATION OFFICER 09/05/2024 12:38 PM MEDICAL INFORMATION OFFICER Carla Mcdaniels DO LAB - PATHOLOGY/C YTOLOGY ORDERABLES DERMATOPATHOLOGY LABORATORY [facility] - Department of Dermatology [address], [address] [phone] documented in this encounter Visit Diagnoses Not on filedocumented in this encounter Care Teams Cuff Folder Relationship Specialty Start Date End Date Renetta Vasquez MD [address] [address] PCP - General 12/29/19 documented as of this encounter
--- OUTSIDE RECORDS SUMMARY | 2024-11-26 09:05 | XMS_ITS | Patient Health Summary ---
Author Organization [facility] [employer] Address [address] [place] [address] Care Team Providers Care Processing Operator Name Role Phone Renetta Vasquez MD Primary Care Provider Un available Note from [facility],non-owned Affiliates and Associated Physician Practices is amultiple site organization consisting of ambulatory clinics and hospital sitesin [place], [place], [place] and [place]. This disclosure is being madepursuant to the Care Everywhere program and may not contain all information available regarding this patient. Last updated 18.[facility] [employer] Allergies * Adhesive Sensitivity(Rash) -Medium Criticality * [...] Acetaminophen (TYLENOL PO) * Cholecalciferol (VITAMIN D3) 66835 units capsule(Started 03/09/2019) * sertraline (ZOLOFT) 50 [...] 36.6 C (97.8 F) 09/19/2018 1:50 PM INDEX EDITOR Respiratory Rate 21 04/03/2019 1:10 PM CDT [...] URINE(Performed 09/19/2018) Performed for Kidney stones * MS INSERT NON-INDWELLING BLADDER(Performed 09/19/2018) Performed for Renal stones, Dysuria, Stress incontinence in female * URINALYSIS - POINT OF CARE(Performed 09/19/2018) Performed for Renal stones, Dysuria, Hematuria, unspecified type * IMAGING/RADIOLOGY/XRAY RESULTS ORDER(Performed 09/05/2018) * IMAGING/RADIOLOGY/XRAY RESULTS ORDER(Performed 08/22/2018) * MS SONO EXAM, TRANSVAGINAL(Performed 08/19/2018) Performed for Chronic pelvic pain in female * DERMATOPATH TECHNICAL REPORT(Performed 08/11/2018) * DERMATOPATHOLOGY(Performed 08/19/2016) Results * DERMATOPATHOLOGY (09/05/2024 8:13 AM [facility]) Only the most recent of3 resultswithin the time period is included. Case Report Dermatopathology Report Case: [id number] Authorizing Provider: Carla Mcdaniels DO Collected: 09/05/2024 08:13 AM Ordering Location: [facility] - Received: 09/05/2024 12:38 PM DermPath Lab Pathologist: Lelo Reid MD Specimen: Skin, left chin 4 11:11 AM [facility]ER[facility] Final Diagnosis Specimen A. SKIN, left chin: BENIGN VERRUCOUS KERATOSIS (L82.1) (see microscopic description and comment) 4 11:11 AM [facility] DERMATOP[facility] Clinical History R/O NMSC 4 11:11 AM [facility]MAT[facility] Gross Description Specimen A: Received is one formalin filled container labeled with the patient's name and designated left chin. The specimen consists of a shave biopsy measuring 3x3x1 mm. Jar 0. 4 11:11 AM [facility] DERMATOPATH[facility]Y [facility] Microscopic Description Specimen A. SKIN, left chin: Sections show hyperkeratosis, papillomatosis, hypergranulosis, and acanthosis. These histological findings can be seen in a verruca vulgaris or a seborrheic keratosis. Additional deeper sections were obtained and reviewed. COMMENT: Given the superficial nature of the biopsy specimen, a deeper dermal process cannot be excluded. 4 11:11 AM [facility] DERMATOPATH[facility]Y [facility] Disclaimer An external and internal positive and negative controls are appropriate for the histochemical, immunohistochemical and immunofluorescence stain(s) in this case (if any), except where stated explicitly. The performance characteristics of the stain(s) cited in this report were developed and its performance characteristic determined by the Dermatopathology Laboratory at [facility], directed by Dr. Kelly Crane. These tests need not be, and therefore are not, approved by the [place] Food and Drug Administration. The tests are used for clinical purposes. Billing Codes Specimen Charges Stain Charges 96716 1 4 11:11 AM [facility] DERMATOPATHOLOGY [facility] Embedded Images 4 11:11 AM [facility]MATOP[facility] Pathology/Cytolo gy TISSUE SPECIMEN FROM SKIN / Unknown 09/05/2024 8:13 AM INDEX EDITOR 09/05/2024 12:38 PM INDEX EDITOR Carla Mcdaniels DO LAB - PATHOLOGY/C YTOLOGY ORDERABLES DERMATOPATHOLOGY LABORATORY [facility] - Department of Dermatology [address], [address] [phone] * (ABNORMAL) C-REACTIVE PROTEIN SENSITIVE (12/20/2019 1:30 PM CDT) Only the most recent of2 resultswithin the time period is included. C-Reactive Protein High Sensitivity 8.0(H) mg/L [facility] Comment: Reference Range Optimal <1.0 Shona PS et al. Endocr Pract.2017;23(Suppl 2):1-87. For ages >17 Years: hs-CRP mg/L Risk According to AHA/CDC Guidelines <1.0 Lower relative cardiovascular risk. 1.0-3.0 Average relative cardiovascular risk. 3.1-10.0 Higher relative cardiovascular risk. Consider retesting in 1 to 2 weeks to exclude a benign transient elevation in the baseline CRP value secondary to infection or inflammation. >10.0 Persistent elevation, upon retesting, may be associated with infection and inflammation. Test Performed at: [facility] [address] [place] [address] JOAN MA DO,MPH 12/20/2019 1:30 PM CDT 12/20/2019 1:31 PM CDT Adilene Templeton MD LAB - CHEMISTRY O RDERABLES [facility] [address] [place] [address] * GROSS + MICRO EXAM (STL) (04/03/2019 12:25 PM CDT) Case Report Surgical Pathology Report Case: [id number] Authorizing Provider: Adilene Templeton MD Collected: 04/03/2019 12:25 PM Ordering Location: [facility] Received: 04/03/2019 01:23 PM Pathologist: Meredith Payan MD Specimens: A) - Duodenal Biopsy B) - Colon Biopsy, random 04/04/2019 4:04 PM CDT [facility] Final Diagnosis A. Duodenum, biopsy: - No significant histopathologic abnormality B. Large intestine, random colon, biopsy: - Benign fragments of colonic mucosa with prominent lymphoid aggregates. - No evidence of active colitis - No evidence of microscopic colitis Amber 04/04/2019 4:04 PM CDT [facility] Clinical History The patient is a 38-year-old woman with chronic diarrhea. 04/04/2019 4:04 PM CDT [facility] Gross Description A. Received in formalin, [...] in cassette B1. REHAN/radha 04/04/2019 4:04 PM CDT [facility] Microscopic Description Microscopic examination substantiates the final diagnosis. Amber 04/04/2019 4:04 PM CDT [facility] Disclaimer All histochemical and/or immunohistochemical results are interpreted with controls that demonstrate appropriate staining reactions before reporting results. Note on use of immunocytochemistry reagents: This test was developed and its performance characteristic determined by [facility], Department of Laboratory Medicine. It has not been cleared or approved by the U.S. Food and Drug Administration (FDA). The FDA has determined that such clearance or approval is not necessary. The test is used for clinical purpose. It should not be regarded as investigational or for research. This laboratory is certified to perform high complexity testing. 04/04/2019 4:04 PM CDT [facility] Embedded Images 04/04/2019 4:04 PM CDT [facility] Pathology/Cytology DUODENAL BIOPSY SPECIMEN / Unknown 04/03/2019 12:25 PM CDT 04/03/2019 1:23 PM CDT Miscellaneous samples (specimen) COLONIC BIOPSY SPECIMEN / Unknown 04/03/2019 12:44 PM CDT 04/03/2019 1:23 PM CDT Adilene Templeton MD LAB - PATHOLOGY/C YTOLOGY ORDERABLES [facility] [address] [place] [address] * EGD (04/03/2019 11:40 AM CDT) Report Endoscopy POC __ _ Patient Name: Kaylie Nicole Procedure Date: 04/03/2019 11:40 AM Date of : 1980 Admit Type: Outpatient Age: 38 Gender: Female Ethnicity: Not or Race: White Attending MD: Adilene Templeton MD __ _ Procedure: Upper GI endoscopy Indications: Diarrhea Providers: Adilene Templeton MD (Doctor), Elenita Gonzalez RN Referring MD: Michael Acharya (Referring MD) Medicines: Monitored Anesthesia Care Complications: No immediate complications. __ _ Procedure: Pre-Anesthesia Assessment: - Prior to [...] satisfactory condition to undergo the procedure. After obtaining informed consent, the endoscope was passed under direct vision. Throughout the procedure, the patient's blood pressure, pulse, and oxygen saturations were monitored continuously. The Endoscope was introduced through the mouth, and advanced to the second part of duodenum. The upper GI endoscopy was accomplished without difficulty. The patient tolerated the procedure well. Impression: - Esophagogastric landmarks identified. - Normal esophagus. - Normal stomach. - Normal examined duodenum. Biopsied. Findings: Esophagogastric landmarks were identified: the Z-line was found at 39 cm, the gastroesophageal junction was found at 39 cm and the site of hiatal narrowing was found at 39 cm from the incisors. The esophagus was normal. The stomach was normal. The cardia and gastric fundus were normal on retroflexion. The examined duodenum was normal. Biopsies were taken with a cold forceps for histology. Verification of patient identification for the specimen was done. Estimated blood loss was minimal. __ _ Recommendation: - Patient has a contact number available for emergencies. The signs and symptoms of potential delayed complications were discussed with the patient. Return to normal activities tomorrow. Written discharge instructions were provided to the patient. - Resume previous diet. - Continue present medications. - Await pathology results. Procedure Code(s): --- Professional --- 23625, Esophagogastroduode noscopy, flexible, transoral; with biopsy, single or multiple --- Technical --- 86320, Esophagogastroduode noscopy, flexible, transoral; with biopsy, single or multiple Diagnosis Code(s): --- Professional --- R19.7, Diarrhea, unspecified --- Technical --- R19.7, Diarrhea, unspecified CPT copyright 2017 [employer]. All rights reserved. The codes documented in this report are preliminary and upon shipping room supervisor review may be revised to meet current compliance requirements. Adilene Templeton MD ____ Adilene Templeton MD 04/03/2019 12:19:40 PM Number of Addenda: 0 Note Initiated On: 04/03/2019 11:40 AM [facility] 04/03/2019 11:4 0 AM CDT Adilene Templeton MD GI PROCEDURE ORDE EMMY [facility] * ENDOSCOPY, COLON, DIAGNOSTIC (04/03/2019 11:38 AM CDT) Report Endoscopy POC _ Patient Name: Kaylie Nicole Procedure Date: 04/03/2019 11:38 AM Date of [...] bowel preparation was evaluated using the BBPS ([place] Bowel Preparation Scale) with scores of: Right [...] previously scheduled. Procedure Code(s): --- Professional --- 63728, Colonoscopy, flexible; with biopsy, single or multiple --- Technical --- 18108, Colonoscopy, flexible; with biopsy, single or multiple Diagnosis Code(s): --- Professional --- K52.9, Noninfective gastroenteritis and colitis, unspecified --- Technical --- K52.9, Noninfective gastroenteritis and colitis, unspecified CPT copyright 2017 [employer]. All rights reserved. The codes documented in this report are preliminary and upon shipping room supervisor review may be revised to meet current compliance requirements. Adilene Templeton MD Adilene Templeton MD 04/03/2019 12:54:48 PM Number of Addenda: 0 Note Initiated On: 04/03/2019 11:38 AM [facility] 04/03/2019 11:3 8 AM CDT Adilene Templeton MD GI PROCEDURE ORDCk BOOTH Performing Organization Address City/[facility]/ZIP Co de Phone Number [facility] * HCG URINE QUALITATIVE - POCT (IP) INTERFACED (04/03/2019 11:27 AM CDT) HCG Qual Urine Negative Negative 04/03/2019 11:28 AM CDT [facility] Urine URINE / Unknown 04/03/2019 1 1:27 AM CDT 04/03/2019 11:28 AM CDT Adilene Templeton MD LAB - POINT OF CA RE ORDERABLES Performing Organization Address [facility] [[email or web address]] Co de Phone Number [facility] [address] [place] [address] * HCG URINE QUAL POCT NOTIFICATION (04/03/2019 11:01 AM CDT) Comment Notification Label Only - See Separate Report 04/03/2019 12:30 PM CDT [facility] Urine URINE / Unknown 04/03/2019 1 1:01 AM CDT 04/03/2019 11:01 AM CDT Adilene Templeton MD LAB - URINALYSIS ORDERABLES Performing Organization Address [facility] [[email or web address]] Co de Phone Number [facility] [address] [place] [address] * CULTURE STOOL PANEL (02/14/2019 8:37 AM CDT) [facility] Comment: SHIGA TOXINS, EIA W/RFL TO E.COLI O157 CULTURE MICRO NUMBER: [id number] TEST STATUS: FINAL SPECIMEN SOURCE: STOOL SPECIMEN QUALITY: ADEQUATE RESULT: Not Detected Culture [facility] Comment: CAMPYLOBACTER, CULTURE MICRO NUMBER: [id number] TEST STATUS: FINAL SPECIMEN SOURCE: STOOL SPECIMEN QUALITY: ADEQUATE RESULT: No enteric Campylobacter isolated Culture [facility] Comment: SALMONELLA AND SHIGELLA, CULTURE MICRO NUMBER: [id number] TEST STATUS: FINAL SPECIMEN SOURCE: STOOL SPECIMEN QUALITY: ADEQUATE RESULT: No Salmonella or Shigella isolated REPORT COMMENT: SPLIT 02/13/2019 FROM [id number] Test Performed at: [facility] [address] POOJA MATTHEWS MD Stool STOOL SPECIMEN / Unknown 02/14/2019 8:37 AM CDT 02/14/2019 8:38 AM CDT Adilene Templeton MD LAB - MICROBIOLOG Y ORDERABLES Performing Organization Address [facility] [[email or web address]] Co de Phone Number [address] [address] * C DIFFICILE CX W/RFLX TO TOXIN B PCR (02/13/2019 2:59 PM CDT) C difficile Culture NOT ISOLATED [facility] Comment: REFERENCE RANGE: NOT ISOLATED For additional information, please refer to http://education.Kwaab/faq/ZXU342 (This link is being provided for informational/ educational purposes only.) REPORT COMMENT: FASTING:NO COLLECTION KIT GIVEN TO PATIENT. PATIENT ADVISED TO RETURN. Test Performed at: [facility] [address] [place] [address] Yo[facility]U Microbiology STOOL SPECIMEN / Unknown 02/13/2019 2:59 PM CDT 02/14/2019 2:45 AM CDT Adilene Templeton MD LAB - MICROBIOLOG Y ORDERABLES Performing Organization Address [facility] de Phone Number [address] [address] * CALPROTECTIN FECAL (02/13/2019 2:59 PM CDT) Calprotectin Fecal <15.6 mcg/g [facility] Comment: <15.625 - 50 mcg/g Normal >50 - 120 mcg/g Borderline >120 mcg/g Abnormal Calprotectin in Crohn's disease and ulcerative colitis can be five to several thousand times above the reference population (50 mcg/g or less). Levels are usually 50 mcg/g or less in healthy patients and with irritable bowel syndrome. Repeat testing in 4-6 weeks is suggested for borderline values. Test Performed at: [facility] [address] [place] [address] CHAD PORTILLO MD,PHD,FRANK 02/13/2019 2:59 PM CDT 02/14/2019 2:45 AM CDT Adilene Templeton MD LAB - BODY FLUID ORDERABLES Performing Organization Address [facility] [place] [address] * PH FECES (02/13/2019 2:59 PM CDT) pH Feces 7.01 5.92 - 8.00 pH units [facility] Comment: Test Performed at: [facility] [address] [address] PRISCILLA ELY MD,PHD Stool STOOL SPECIMEN / Unknown 02/13/2019 2:59 PM CDT 02/14/2019 2:45 AM CDT Adilene Templeton MD LAB - BODY FLUID ORDERABLES Performing Organization Address [facility] [place] [address] * PANCREATIC ELASTASE FECES (02/13/2019 2:59 PM CDT) Pancreatic Elastase 1 >500 mcg/g [facility] Comment: Adult and Pediatric Reference Ranges for Pancreatic Elastase-1: Normal: >200 mcg/g Moderate Pancreatic Insufficiency: 100-200 mcg/g Severe Pancreatic Insufficiency: <100 mcg/g Elastase-1 (E-1) assay results are expressed in mcg/g, which represent mcg E1/g feces. It is not necessary to interrupt enzyme substitution therapy. REPORT COMMENT: FASTING:NO COLLECTION KIT GIVEN TO PATIENT. PATIENT ADVISED TO RETURN. Test Performed at: [facility] [address] [place] [address] CHAD PORTILLO MD,PHD,FRANK Stool STOOL SPECIMEN / Unknown 02/13/2019 2:59 PM CDT 02/14/2019 1:59 AM CDT Adilene Templeton MD LAB - BODY FLUID ORDERABLES Performing Organization Address [facility] de Phone Number [address] [address] * IRON + TIBC + FERRITIN (02/10/2019 12:55 PM CDT) Iron 63 40 - 190 mcg/dL [facility] TIBC 329 250 - 450 mcg/dL (calc) [facility] % Saturation 19 11 - 50 % (calc) [facility] Ferritin 108 10 - 154 ng/mL [facility] Comment: Test Performed at: [facility] [address] [place] [address] JOAN MA DO,MPH Blood BLOOD SPECIMEN / Unknown 02/10/2019 12:55 PM CDT 02/10/2019 1:06 PM CDT Adilene Templeton MD LAB - CHEMISTRY O RDERABLES Performing Organization Address [facility] de Phone Number [facility] [phone] [place] [address] * HLA TYPING CELIAC DISEASE (02/10/2019 12:55 PM CDT) Pathologist [facility] Interpretation see note [facility] Comment: The patient does not have the HLA-DQ variants associated with celiac disease. More than 97% of celiac patients carry either HLA-DQ2(DQA1*05/DQB1*02) or HLA-DQ8(DQA1*03/DQB1*0302) or both. Genetic counseling as needed. HLA-DQ2 Negative [facility] HLA-DQB Negative [facility] HLA-DQA1 01 [facility] HLA-DQA1 01 [facility] HLA-DQB1 0602 [facility] HLA-DQB1 0603 [facility] Results Reviewed By see note [facility] Comment: Sesar Palacio, Ph.D.,[facility] [place], Molecular Genetics Typing performed by PCR and hybridization with sequence specific oligonucleotide probes (SSO) using the FDA-cleared LABType(R) SSO Kit. Test Performed at: [facility]/[address] PRISCILLA ELY MD,PHD Blood BLOOD SPECIMEN / Unknown 02/10/2019 12:55 PM CDT 02/10/2019 1:06 PM CDT Adilene Templeton MD LAB - SEROLOGY OR DERABLES Performing Organization Address [facility] [[email or web address]] Co de Phone Number [address] [address] * TISSUE TRANSGLUTAMINASE AB IGA (02/10/2019 12:55 PM CDT) Pathologist [facility] TTG Antibody IgA 1 <4 U/mL [facility] Comment: Value Interpretation <4 U/mL: No Antibody Detected >or=4 U/mL: Antibody Detected Test Performed at: [facility] [address] [place] [address] PRISCILLA ELY MD,PHD Blood BLOOD SPECIMEN / Unknown 02/10/2019 12:55 PM CDT 02/10/2019 1:06 PM CDT Adilene Templeton MD LAB - SEROLOGY OR DERABLES Performing Organization Address [facility] Phone Number [address] [address] * (ABNORMAL) VITAMIN D 1,25 DIHYDROXY (02/10/2019 12:55 PM CDT) Pathologist [facility] Vitamin D Total 79(H) 18 - 72 pg/mL [facility] Vitamin D3, 1,25 Dihydroxy 79 pg/mL [facility] Vitamin D, 25 Hydroxy <8 pg/mL [facility] Comment: Vitamin D3, 1,25(OH) indicates both endogenous production and supplementation. Vitamin D2, 1,25(OH)2 is an indicator of exogenous sources, such as diet or supplementation. Interpretation and therapy are based on measurement of Vitamin D, 1,25 (OH)2, Total. This test was developed and its analytical performance characteristics have been determined by [facility]. It has not been cleared or approved by the US Food and Drug Administration. This assay has been validated pursuant to the CLIA regulations and is used for clinical purposes. REPORT COMMENT: FASTING:NO COLLECTION KIT GIVEN TO PATIENT. PATIENT ADVISED TO RETURN. Test Performed at: [facility] [address] [place] [address] AZEEM ANDRE MD,PHD Blood BLOOD SPECIMEN / Unknown 02/10/2019 12:55 PM CDT 02/10/2019 1:06 PM CDT Adilene Templeton MD LAB - CHEMISTRY O RDERABLES Performing Organization Address [facility] [[email or web address]] Co de Phone Number [facility] [address] [place] [address] * ERYTHROCYTE SEDIMENTATION RATE (02/10/2019 12:55 PM CDT) Pathologist [facility] Erythrocyte Sedimentation Rate Westergren 2 < OR = 20 mm/h [facility] Comment: Test Performed at: [facility] [address] [place] [address] JOAN MA DO,MPH 02/10/2019 12:5 5 PM CDT 02/10/2019 1:06 PM CDT Adilene Templeton MD LAB - HEMATOLOGY ORDERABLES Performing Organization Address [facility] de Phone Number [facility] [address] [place] [address] * CBC WITH DIFFERENTIAL (02/10/2019 12:55 PM CDT) Pathologist [facility] White Blood Cell Count 5.8 3.8 - [...] 0.3 % [facility] Comment: Test Performed at: [email or web address] [address] JOAN MA DO,MPH Blood BLOOD SPECIMEN / Unknown 02/10/2019 12:55 PM CDT 02/10/2019 1:06 PM CDT Adilene Templeton MD LAB - HEMATOLOGY ORDERABLES [facility] [address] [place] [address] * COMPREHENSIVE METABOLIC PANEL (02/10/2019 12:55 PM CDT) Glucose 92 65 - 139 mg/dL [facility] Comment: Non-fasting reference interval BUN 16 7 - [...] 29 U/L [facility] Comment: Test Performed at: [email or web address] [place] [address] JOAN MA DO,MPH Blood BLOOD SPECIMEN / Unknown 02/10/2019 12:55 PM CDT 02/10/2019 1:06 PM CDT Adilene Templeton MD LAB - CHEMISTRY O RDERAAGUILAR Performing Organization Address [facility] [[email or web address]] Co de Phone Number [facility] [phone] [place] [address] * VITAMIN B12 (02/10/2019 12:55 PM CDT) Pathologist [facility] Vitamin B12 521 200 - 1100 pg/mL [facility] Comment: Test Performed at: [facility] [address] [place] [address] JOAN MA DO,MPH Blood BLOOD SPECIMEN / Unknown 02/10/2019 12:55 PM CDT 02/10/2019 1:06 PM CDT Adilene Templeton MD LAB - CHEMISTRY O CHANDRIKA Performing Organization Address [facility] [place] [address] * TSH (02/10/2019 12:55 PM CDT) Pathologist [facility] TSH 1.52 mIU/L [facility] Comment: Reference Range > or = 20 Years 0.40-4.50 Ranges First trimester 0.26-2.66 Second trimester 0.55-2.73 Third trimester 0.43-2.91 Test Performed at: [facility] [address] [employer] [facility] [address] JOAN MA DO,MPH Blood BLOOD SPECIMEN / Unknown 02/10/2019 12:55 PM CDT 02/10/2019 1:06 PM CDT Adilene Templeton MD LAB - CHEMISTRY O RDERABLES Performing Organization Address [facility] [[email or web address]] [place] [address] * URINALYSIS REFLEX TO MICROSCOPIC NO CULTURE (09/20/2018 9:00 PM INDEX EDITOR) Pathologist [facility] Color UA YELLOW YELLOW [facility] Appearance CLEAR CLEAR [facility] Specific Aydlett UA 1.018 1.001 - 1.035 [facility] pH UA 7.0 5.0 - 8.0 [facility] Glucose UA NEGATIVE NEGATIVE [facility] Bilirubin UA NEGATIVE NEGATIVE [facility] Ketone UA NEGATIVE NEGATIVE [facility] Blood UA NEGATIVE NEGATIVE [facility] Protein UA NEGATIVE NEGATIVE [facility] Nitrite UA NEGATIVE NEGATIVE [facility] Leukocyte UA NEGATIVE NEGATIVE [facility] Comment: Test Performed at: [facility] [address] [place] [address] JOAN MA DO,MPH 09/20/2018 2:3 3 AM INDEX EDITOR Hannah Juan [facility] LAB - URI NALYSIS ORDERABLES Performing Organization Address [facility] de Phone Number [address] [address] * CULTURE URINE (09/20/2018 9:00 PM INDEX EDITOR) Only the most recent of3 resultswithin the time period is included. Culture [facility] Comment: CULTURE, URINE, ROUTINE MICRO NUMBER: [id number] TEST STATUS: FINAL SPECIMEN SOURCE: URINE,CATH STRAIGHT SPECIMEN QUALITY: ADEQUATE RESULT: No Growth NO COLLECTION DATE RECEIVED. WE HAVE USED THE DATE THE SPECIMEN WAS RECEIVED BY THIS LABORATORY THE COLLECTION DATE. IF THIS IS INCORRECT, PLEASE CONTACT CLIENT SERVICES. PHONE NUMBER: [phone] Test Performed at: [facility] [address] POOJA MATTHEWS MD Urine URINE SPECIMEN OBTAINED BY SINGLE CATHETERIZATION OF URINARY BLADDER / Unknown 09/20/2018 2:33 AM INDEX EDITOR Hannah Juan Pablo Princessroberta [facility] - RICHELLE ROBIOLOGY ORDERABLES Performing Organization Address [facility] de Phone Number [address] [address] * CHLAMYDIA + GC AMPLIFIED PROBE (09/20/2018 2:00 PM INDEX EDITOR) Only the most recent of2 resultswithin the time period is included. Chlamydia trachomatis RNA NOT DETECTED NOT DETECTED [facility] GC RNA NOT DETECTED NOT DETECTED [facility] Please Note [facility]ST Comment: This test was performed using the APTIMA COMBO2 Assay ([employer] The analytical performance characteristics of this assay, when used to test SurePath specimens have been determined by [employer]. NO COLLECTION DATE RECEIVED. WE HAVE USED THE DATE THE SPECIMEN WAS RECEIVED BY THIS LABORATORY THE COLLECTION DATE. IF THIS IS INCORRECT, PLEASE CONTACT CLIENT SERVICES. PHONE NUMBER: [phone] Test Performed at: [facility] [id number] [address] [facility] [address] JOAN MA DO,MPH Microbiology URINE / Unknown 018 5:03 AM INDEX EDITOR [facility]HELLE ROBIOLOGY ORDERABLES [facility] [address] [place] [address] * URINALYSIS AUTO - POINT OF CARE (AMB) [facility] (09/19/2018 4:02 PM INDEX EDITOR) Glucose UA neg Bilirubin UA POCT neg Ketones UA POCT neg Specific Aydlett UA 1.015 Blood Urine POCT neg pH UA 6.5 Protein UA neg Urobilinogen UA neg Nitrite UA neg WBC UA neg Urine URINE / Unknown 09/19/2018 4 :02 PM INDEX EDITOR Elsie Langston [facility] - POINT O F CARE ORDERABLES * MS INSERT NON-INDWELLING BLADDER (09/19/2018 1:20 PM INDEX EDITOR) Narrative Hannah Sharma APRN-CNP - 09/19/2018 1:20 PM INDEX EDITOR Hannah Sharma APRN-CNP 09/19/2018 1:20 PM Urethral Catheterization Procedure Note: Urethra cleaned [...] pH units Blood UA trace Negative Specific Aydlett UA POCT 1.015 1.002 - 1.030 Ketone UA neg Negative Bilirubin UA POCT neg Negative Glucose UA neg Negative Urine URINE / Unknown 09/19/2018 Hannah Sharma [facility]ATEG[facility] LAB - POI NT OF CARE ORDERABLES * IMAGING/RADIOLOGY/XRAY RESULTS ORDER (09/05/2018 7:09 AM INDEX EDITOR) Only the most recent of2 resultswithin the time period is included. Anatomical Region Laterality Modality Other Narrative 09/05/2018 7:09 AM INDEX EDITOR Ordered by an unspecified provider. Scanned Document IMAGING * MS SONO EXAM, TRANSVAGINAL (08/19/2018 10:46 AM INDEX EDITOR) Narrative Brenna Osorio Cherie - 08/19/2018 10:46 AM INDEX EDITOR Brenna Osorio Cherie 08/19/2018 10:46 AM Ready in [employer]. Brodie Wagner MD PROCEDURE/MINOR LAZAR RGICAL ORDERABLES * DERMATOPATH TECHNICAL REPORT (08/11/2018 12:00 AM CDT) Case Report Dermatopathology Report Case: [id number] Authorizing Provider: Shavonne Anders MD Collected: 08/11/2018 12:00 AM Pathologist: Nell Doty MD Received: 08/12/2018 06:56 AM Specimen: Skin, back 10:38 AM T DERMATOPATHOLOGY LABORATORY Clinical History R/O cyst, irritated, painful. 8 10:38 AM [facility] DERMATOPATHOLOGY LABORATORY Gross Description Specimen A: Received is one formalin filled container labeled with the patient's name and designated back. The specimen consists of a [id number] excision. The specimen is serially sectioned and a software support representative section is submitted in cassette 1. Jar 1. [facility] Dermatopathology Laboratory performed the technical component only. 8 10:38 AM [facility] DERMATOPATHOLOGY LABORATORY Embedded Images 10:38 AM [facility] DERMATOPATHOLOGY LABORATORY DISCLAIMER An external and internal positive and negative controls are appropriate for the histochemical, immunohistochemical and immunofluorescence stain(s) in this case (if any), except where stated explicitly. The performance characteristics of the stain(s) cited in this report were developed and its performance characteristic determined by the Dermatopathology Laboratory at [facility]. These tests need not be, and therefore are not, approved by the [place] Food and Drug Administration. The tests are used for clinical purposes. 8 10:38 AM CDT DERMATOPATHOLOGY LABORATORY Pathology/Cytolog y TISSUE SPECIMEN FROM SKIN / Unknown 08/11/2018 08/12/2018 6:56 AM CDT Shavonne Anders MD LAB - PATHOLOGY/CYTO LOGY ORDERABLES DERMATOPATHOLOGY LABORATORY [facility] - Department of Dermatology [address] [place] [address], 5th Floor Lab [address] [phone] Care Teams Processing Operator Relationship Specialty Start Date End Date Renetta Vasquez MD [address] [address] PCP - General 12/29/19
--- OUTSIDE RECORDS SUMMARY | 2024-11-26 09:05 | XMS_ITS | Clinical Summary ---
Author Organization [facility] Address [address] [place] [address] Care Team Providers Care Quick Mixer Operator Name Role Phone Renetta Vasquez MD Primary Care Provider Un available Source Comments [facility],non-owned Affiliates and Associated Physician Practices is amultiple site organization consisting of ambulatory clinics and hospital sitesin [place], [place], [place] and [place]. This disclosure is being madepursuant to the Care Everywhere program and may not contain all information available regarding this patient. Last updated 18.[facility] Allergies Active Allergy Reactions Criticality Noted Date [...] Acetaminophen (TYLENOL PO) Active Cholecalciferol (VITAMIN D3) 40298 units capsule 03/09/2019 Active sertraline (ZOLOFT) 50 [...] Department Care Team Description 09/05/2024 Lab Requisition [facility] - DermPath Lab [address] [place] [address] Carla Mcdaniels DO from Last 3 Months [...] 36.6 C (97.8 F) 09/19/2018 1:50 PM [employer] Respiratory Rate 21 04/03/2019 1:10 PM CDT Oxygen Saturation 95% 04/03/2019 1:10 PM CDT Inhaled Oxygen Concentration - - Weight 104.8 kg (231 lb) 12/19/2019 4:00 PM CDT Height 165.1 cm (5' 5 ) 12/19/2019 4:00 PM CDT Body Mass Index 38.44 12/19/2019 4:00 PM CDT Plan of Treatment Health Maintenance Due Date Last Done Comments COLOGSTEPHIERD (AGES 45-75) - COLON CA SCREENING 1979 CT COLONOGRAPHY - COLON CA SCREENING 1979 FIT - COLON CA SCREENING 1979 FLEX SIG - COLON CA SCREENING 1979 LIPID TESTING 1979 PAP SMEAR 1979 HIV SCREENING 1994 HEPATITIS C SCREENING 05/25/1997 DTAP/TDAP/TD VACCINES (1 - Tdap) 1998 HEPATITIS B VACCINE (1 of 3 - 19+ 3-dose series) 1998 MAMMOGRAM 08/15/2020 08/15/2018 COVID-19 VACCINE ( - 2023- season) 2024 08/30/2022, 11/05/2021, 12/31/2020, Additional history [...] Diagnosis Comments DERMATOPATHOLOGY Routine 09/05/2024 8:13 AM [employer] ENDOSCOPY, COLON, DIAGNOSTIC Routine 04/03/2019 11:38 AM CDT Chronic diarrhea from Last 3 Months or Most Recently Relevant to Health Maintenance Results * DERMATOPATHOLOGY (09/05/2024 8:13 AM [facility]) Case Report Dermatopathology Report Case: [id number] Authorizing Provider: Carla Mcdaniels DO Collected: 09/05/2024 08:13 AM Ordering Location: [facility] - Received: 09/05/2024 12:38 PM DermPath Lab Pathologist: Lelo Reid MD Specimen: Skin, left chin 11:11 AM [facility] DERMATOPATHOLOGY LABORATORY Final Diagnosis Specimen A. SKIN, left chin: BENIGN VERRUCOUS KERATOSIS (L82.1) (see microscopic description and comment) 11:11 AM [facility] DERMATOPATHOLOGY LABORATORY Clinical History R/O NMSC 11:11 AM [facility] DERMATOPATHOLOGY LABORATORY Gross Description Specimen A: Received is one formalin filled container labeled with the patient's name and designated left chin. The specimen consists of a shave biopsy measuring 3x3x1 mm. Jar 0. 11:11 AM [facility] DERMATOPATHOLOGY LABORATORY Microscopic Description Specimen A. SKIN, left chin: Sections show hyperkeratosis, papillomatosis, hypergranulosis, and acanthosis. These histological findings can be seen in a verruca vulgaris or a seborrheic keratosis. Additional deeper sections were obtained and reviewed. COMMENT: Given the superficial nature of the biopsy specimen, a deeper dermal process cannot be excluded. 11:11 AM [facility] DERMATOPATHOLOGY LABORATORY Disclaimer An external and internal positive and negative controls are appropriate for the histochemical, immunohistochemical and immunofluorescence stain(s) in this case (if any), except where stated explicitly. The performance characteristics of the stain(s) cited in this report were developed and its performance characteristic determined by the Dermatopathology Laboratory at [facility], directed by Dr. Kelly Crane. These tests need not be, and therefore are not, approved by the [place] Food and Drug Administration. The tests are used for clinical purposes. Billing Codes Specimen Charges Stain Charges 60512 1 11:11 AM [facility] DERMATOPATHOLOGY LABORATORY Embedded Images 11/27/202 4 11:11 AM [employer]ELOPER DERMATOPATHOLOGY LABORATORY Pathology/Cytolo gy TISSUE SPECIMEN FROM SKIN / Unknown 09/05/2024 8:13 AM [employer] DEVELOPER 09/05/2024 12:38 PM [employer] DEVELOPER Carla Beard Arslan [facility] - PATHOLOGY/C YTOLOGY ORDERABLES DERMATOPATHOLOGY LABORATORY [facility] - Department of Dermatology [facility]ly [facility] Medicine [address] [place] [address] [phone] * ENDOSCOPY, COLON, DIAGNOSTIC (04/03/2019 11:38 AM CDT) Report Endoscopy POC _ Patient Name: Kaylie Beck Procedure Date: 04/03/2019 11:38 AM Date [...] bowel preparation was evaluated using the BBPS ([place] Bowel Preparation Scale) with scores of: Right [...] previously scheduled. Procedure Code(s): --- Professional --- 63067, Colonoscopy, flexible; with biopsy, single or multiple --- Technical --- 78661, Colonoscopy, flexible; with biopsy, single or multiple Diagnosis Code(s): --- Professional --- K52.9, Noninfective gastroenteritis and colitis, unspecified --- Technical --- K52.9, Noninfective gastroenteritis and colitis, unspecified CPT copyright 2017 [employer]. All rights reserved. The codes documented in this report are preliminary and upon cloth brushing and sueding supervisor review may be revised to meet current compliance requirements. Adilene Templeton MD Adilene Templeton MD 04/03/2019 12:54:48 PM Number of Addenda: 0 Note Initiated On: 04/03/2019 11:38 AM [facility] 04/03/2019 11:3 8 AM CDT Adilene Templeton MD [facility] Organization Address City/State/ZIP Co de Phone Number [facility] from Last 3 Months or Most Recently Relevant to Health Maintenance Care Teams Quick Mixer Operator Relationship Specialty Start Date End Date Renetta Vasquez MD [address] [address] PCP - General 12/29/19
[2024-11-26 09:08] VITALS: BP 114/78; PULSE 69; RESP 18; TEMP 36.3; O2SAT 99
--- NOTE | 2024-11-26 09:39 | ED_ITS ---
HPI - URI/Sore Throat General Chief Complaint: Upper Respiratory Infection Stated Complaint: sinus Time Seen by Provider: 11/26/24 09:13 Source: patient Mode of arrival: ambulatory Limitations: no limitations History of Present Illness HPI Narrative: 44-year-old female presents to [facility] with complaints of 2 week history of sinus pressure, right side is worse than left, nasal congestion and runny nose. Patient reports that she was diagnosed with influenza a 2 weeks ago. Patient reports that numerous family members recently had similar symptoms. Patient has been taking Sudafed as needed and Claritin daily. Patient denies fever, body aches, chills, nausea vomiting or diarrhea. Patient is a nonsmoker. Patient denies recent travel. MD elicited complaint: nasal congestion and sinus pain Onset (ago): week(s) (2) Consistency: constant Able to tolerate fluids by mouth: Yes Exacerbating factors: nothing Relieving factors: nothing Context: sick contacts Related Data Home Medications ?Medication ?Instructions ?Recorded ?Confirmed ?Last Taken ?Type multivitamin (Daily Multi-Vitamin 1 tablet PO DAILY 11/23/23 11/07/24 08/11/24 History tablet) acetaminophen 650 mg 650 mg PO Q12H PRN 09/14/24 11/07/24 Unknown History tablet,extended release (Tylenol Arthritis Pain) cetirizine 10 mg tablet (Zyrtec) 10 mg PO DAILY PRN Allergy Symptoms 09/14/24 11/07/24 Unknown History cyclobenzaprine 10 mg tablet 10 mg PO TID PRN 09/14/24 11/07/24 Unknown History rosuvastatin 10 mg tablet 10 mg PO QHS 11/07/24 11/07/24 Unknown History Allergies Allergy/AdvReac Type Severity Reaction Status Date / Time aspirin Allergy Intermediate Swelling Verified 11/26/24 09:23 NSAIDS (Non-Steroidal Allergy Intermediate face Verified 11/26/24 09:23 Anti-Inflamma swelling midazolam AdvReac Severe Hallucinati Verified 11/26/24 09:23 ng tramadol AdvReac Severe Hallucinati Verified 11/26/24 09:23 ng amoxicillin AdvReac Intermediate Diarrhea Verified 11/26/24 09:23 ciprofloxacin AdvReac Intermediate NAUSEA AND Verified 11/26/24 09:23 DIARRHEA clarithromycin AdvReac Intermediate Vomiting Verified 11/26/24 09:23 erythromycin base AdvReac Intermediate Vomiting Verified 11/26/24 09:23 Review of Systems Constitutional: Constitutional: Denies chills, Denies fatigue, Denies fever(s) and Denies weakness ENT: Denies dizziness, Denies epistaxis and Reports nasal congestion Comments: Bilateral sinus pressure, right it worse than left Respiratory: Respiratory: Denies cough Gastrointestinal: Gastrointestinal: Denies diarrhea, Denies nausea and Denies vomiting Musculoskeletal: Musculoskeletal: Denies arthralgias and Denies joint swelling Integumentary/Breasts: Skin/Breast: Denies erythema Neurologic: Denies dizziness and Denies headache(s) [facility] Past Medical History Medical History Anxiety GERD without esophagitis Lingual tonsil hypertrophy Gluten-sensitive enteropathy Irritable bowel syndrome with diarrhea Myocardial infarction with nonobstructive coronary arteries (~09/2024) Type 2 diabetes mellitus without complications (~09/2024) Sleep apnea On CPAP Chronic venous insufficiency of lower extremity Lymphedema of both lower extremities Bilateral anterior knee pain Diverticulitis (~2019) History of shingles Vitamin D deficiency Shingles Celiac disease Endometriosis Depression (~2009) History of nephrolithotomy with removal of calculi 2014 delivery delivered 2005 and 2008 Scoliosis 7 kevin and screws Surgical History Surgical History History of back surgery History of D&C History of lithotripsy History of tonsillectomy H/O breast biopsy Hx of inguinal hernia repair History of back surgery 1994 Family History Family History Father Skin and subcutaneous tissue complication after insertion of filling material under skin Skin cancer Depression Family history of diabetes mellitus in first degree relative Mother Breast cancer Asthma Right bundle branch block Hypertension Sibling Skin cancer Depression Asthma Other Skin cancer Asthma Grandparent Heart disease Hypertension Grandparent Skin cancer Diabetes mellitus Heart disease Hypertension Thyroid disorder Asthma Other Family history of allergic disorder Social History Social History Smoking status: Never smoker Second hand tobacco smoke exposure: No Alcohol intake: never Alcohol use details: rarely Substance use: never Substance use type: does not use Do You Feel Safe in your Home?: Yes Lack of Transportation: No Lack of Food: Never True Current Housing: I Have Housing Concerned About Future Housing: No Difficulty Paying Gas/Electric Bills: No Difficulty Paying for Meds: No Currently Unemployed: No Education: Master's Degree or Higher Difficulty w/ Childcare or Family Care: No Living arrangements: with family 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ed by the patient): Female Sexual Orientation (if Verbalized by the Patient): Straight or Heterosexual Spiritual care concerns: No Exam Const: General: healthy appearing and no acute distress Nutritional Appearance: well nourished Orientation/consciousness: patient oriented x3 Limitations: no limitations HENMT: Head: normal to inspection Ears: external ears normal, TM's normal bilaterally and EAC's normal Face/Nose/Sinus: Normal external nose present Face and sinus: sinus tenderness frontal Other: Moderate nasal congestion noted, right side is worse than left Eyes: Conjunctivae: conjunctivae normal Neck: Neck: normal visual inspection Resp: Effort & Inspection: normal respiratory effort Auscultation: clear to auscultation bilaterally, no crackles, no rales, no rhonchi, no wheezes and breath sounds present Cardio: Rate: regular rate Rhythm: regular rhythm Heart sounds: no murmurs Skin: General skin exam: normal color Rashes: no rashes Neuro: General: patient oriented x3 Speech: normal speech Gait exam (Neuro): Normal gait present Psych: Affect: normal affect Attitude: cooperative Course Course Level of Care: Express Care Visit Vital Signs Vital signs: Vital Signs Temperature 36.3 C L 11/26/24 09:08 Pulse Rate 69 11/26/24 09:08 Respiratory Rate 18 11/26/24 09:08 Blood Pressure 114/78 11/26/24 09:08 Pulse Oximetry 99 11/26/24 09:08 Oxygen Delivery Room Air 11/26/24 09:08 Temperature 36.3 C L 11/26/24 09:08 Pulse Rate 69 11/26/24 09:08 Respiratory Rate 18 11/26/24 09:08 Blood Pressure 114/78 11/26/24 09:08 Pulse Oximetry 99 11/26/24 09:08 Oxygen Delivery Room Air 11/26/24 09:08 MDM - URI/Sore Throat MDM Narrative Medical decision making narrative: Instructed patient continue Claritin daily. Instructed patient to take antibiotic as prescribed and follow-up with primary care provider if symptoms not improved. Differential Diagnosis Differential diagnosis: Likely upper respiratory infection, otitis media and viral infection Critical Care Time Critical Care Time Critical Care Time: No Discharge Plan Discharge Clinical Impression: Acute bacterial sinusitis Patient Disposition: Home, Self-Care Condition: Stable Instructions: Antibiotic Form, Sinusitis (ED) Additional Instructions: Continue Claritin daily Take antibiotic as prescribed Follow-up with primary care provider if symptoms not improved Proceed to the emergency room if symptoms worsen Patient Language: Stateless Prescriptions: New doxycycline hyclate 100 mg tablet 100 mg PO BID 7 Days Qty: 14 0RF No Action multivitamin [Daily Multi-Vitamin] Tablet 1 tablet PO DAILY Patient Comments: has not been taking in last month rosuvastatin 10 mg tablet 10 mg PO QHS cetirizine [Zyrtec] 10 mg tablet 10 mg PO DAILY PRN (Reason: Allergy Symptoms) acetaminophen [Tylenol Arthritis Pain] 650 mg tablet extended release 650 mg PO Q12H PRN cyclobenzaprine 10 mg tablet 10 mg PO TID PRN cholecalciferol (vitamin D3) 1,250 mcg (50,000 unit) tablet 1,250 mcg PO WEEKLY Qty: 12 1RF (DME) blood-glucose meter [Blood Glucose Monitoring] Kit See Rx Instructions .ROUTE .MEDSUPPLY Qty: 1 0RF Rx Instructions: check blood sugars q.day. As directed (DME) lancets 33 gauge misc See Rx Instructions .ROUTE .MEDSUPPLY Qty: 100 1RF Rx Instructions: check blood sugars q.day. As directed (DME) Blood Glucose Test Strip See Rx Instructions .ROUTE .MEDSUPPLY Qty: 100 1RF Rx Instructions: check blood sugars q.day As directed Jardiance 25 mg tablet 25 mg PO QAM Qty: 90 1RF coenzyme Q10 200 mg capsule 200 mg PO DAILY Qty: 90 1RF Follow-up/Referrals: Kenn Urbina MD [Primary Care Provider] -
--- OUTSIDE RECORDS SUMMARY | 2024-11-26 10:25 | XMS_ITS | Clinical Summary ---
Author Organization [facility] Address [address] [place] [address] Care Team Providers Care Manager Imaging Name Role Phone Gloria Urbina MD Primary [...] IN LEFT EYE FOUR TIMES DAILY. Active -zyw l-Poonmavw-xla al 27 mg iron-1.13 mg-581.92 mg capsule [...] Department Care Team Description 11/09/2024 11:58 AM VARIETY PERFORMER - 11/09/2024 11:59 PM VARIETY PERFORMER Hospital Encounter [facility] - Breast Imaging [address] [place] [address] 8 [place] [address] Abnormality of left breast on screening mammography Discharge Disposition: Discharge to home or self care 11/01/2024 Orders Only [facility] Cardiology [address] [place] [phone] Amy Sanchez MA 10/31/2024 Telephone [facility] Cardiology [address] [place] [phone] Juan Henley MD Med Refill 10/31/2024 Telephone [facility] Surgery [address] [place] [address] 8 [place] [phone] Kristina Ngo CMA 10/27/2024 11:30 AM VARIETY PERFORMER Office Visit [facility] Surgery [address] [place] [address] 8 [place] [address] Jessica Odonnell NP At high risk for breast cancer (Primary Dx); Family history of breast cancer; Dense breast tissue 10/27/2024 10:49 AM VARIETY PERFORMER - 10/27/2024 11:59 PM VARIETY PERFORMER Hospital Encounter [facility] - Breast Imaging [address] [facility] Floor 8 [place] [address] Breast cancer screening by mammogram Discharge Disposition: Discharge to home or self care 09/19/2024 9:45 AM VARIETY PERFORMER Office Visit [facility] Medical [facility] Cardiology [address] [place] [phone] Juan Henley MD 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); Inflammatory arthropathy; Need for lipid screening 09/19/2024 Telephone [facility] Cardiology [address] [place] [phone] Juan Henley MD 09/15/2024 Orders Only [facility] Information Management [address] [place] [address] Juan Henley MD 09/13/2024 Orders Only [facility] Cardiology [address] [place] [phone] Juan Henley MD 09/12/2024 Orders Only [facility] Information Management [address] [place] [phone] Juan Henley MD from Last 3 Months [...] Comments Blood Pressure 126/80 09/19/2024 9:55 AM VARIETY PERFORMER Pulse 93 09/19/2024 9:55 AM VARIETY PERFORMER Temperature - - Respiratory Rate - - Oxygen Saturation 97% 09/19/2024 9:55 AM VARIETY PERFORMER Inhaled Oxygen Concentration - - Weight 118.8 kg (261 lb 14.5 oz) 2024 10:58 AM VARIETY PERFORMER Height 165.1 cm (5' 5 ) 10/27/2024 10:5 8 AM VARIETY PERFORMER Body Mass Index 43.58 10/27/2024 10:58 AM VARIETY PERFORMER Plan of Treatment Health Maintenance Due Date [...] this topic Medical Devices Implanted Type Area Warehouse Incentive Selector Device Identifier Shelf Expiration Date Model / Serial / Lot Hernia Mesh Abdomen Lumbar Spine Fusion Instrumentation Implanted:06/14/199 5 (Quantity not on file) Spine Lumbar Procedures Procedure Name Priority Date/Time Associated Diagnosis Comments DIAGNOSTIC MAMMOGRAM LEFT W MAXIMO Schedule Routine, Read Routine (OP Routine) 11/09/2024 12:47 PM VARIETY PERFORMER Abnormality of left breast on screening mammography SCREENING MAMMOGRAM BILATERAL W MAXIMO Schedule Routine, Read Routine (OP Routine) 10/27/2024 11:28 AM VARIETY PERFORMER Breast cancer screening by mammogram POCT LIPID PANEL Routine 09/19/2024 11:3 8 AM VARIETY PERFORMER Need for lipid screening CARDIOLOGY DOCUMENT SCAN 09/15/2024 CARDIOLOGY DOCUMENT SCAN 09/12/2024 CARDIOLOGY DOCUMENT SCAN Routine 09/11/2024 11:17 AM VARIETY PERFORMER from Last 3 Months Results * Diagnostic Mammogram Left W Maximo (11/09/2024 12:47 PM VARIETY PERFORMER) Anatomical Region Laterality Modality Breast Left Mammography 11/09/2024 1:04 PM VARIETY PERFORMER Impressions 11/09/2024 3:19 PM VARIETY PERFORMER Grouped layering calcification in the upper central [...] Diana Jeff M.D. Narrative 11/09/2024 3:19 PM VARIETY PERFORMER EXAMINATION: LEFT UNILATERAL DIGITAL DIAGNOSTIC MAMMOGRAM AND [...] suspicious mass or architectural distortion. Procedure Note iDana Jeff MD - 11/09/2024 EXAMINATION: LEFT UNILATERAL [...] Mammogram Bilateral W Maximo (10/27/2024 11:28 AM VARIETY PERFORMER) Anatomical Region Laterality Modality Breast Bilateral Mammography Narrative 10/30/2024 11:33 AM VARIETY PERFORMER Mammogram Technique: Bilateral Digital Breast Tomosynthesis, Bilateral C-view 2D Screening mammogram. Views obtained: bilateral craniocaudal and bilateral mediolateral oblique. Computer Aided Detection was performed. Mammogram Findings: The present examination has been compared to prior imaging studies performed at [facility] on 02/24/2021, 07/30/2021, 07/27/2022 and 10/18/2023. The [...] compared to prior imaging studies performed at [facility] on 02/24/2021, 07/30/2021,07/27/2022 and 10/18/2023. The breasts [...] * POCT lipid panel (09/19/2024 11:38 AM VARIETY PERFORMER) Cholesterol, POC 117 mg/dL Comment:GLU = 131 HDL, POC 62 mg/dL Triglycerides, POC 144 mg/dL LDL Cholesterol POC 26 mg/dL Chol/HDL Ratio, POC 0.4 Non-HDL Cholesterol, POC 55 mg/dL Cholesterol Total, POC 117 mg/dL Capillary blood 09/19/2024 1 1:38 AM VARIETY PERFORMER Result Jarad Henley MD POINT OF CARE TEST ORDERABLES Fi nal Result * Cardiology Document Scan (09/15/2024) Anatomical Region Laterality Modality Other Result Jarda Henley MD CV CARDIAC SERVICES PROCEDURES F inal Result * Cardiology Document Scan (09/12/2024) Anatomical Region Laterality Modality Other Result Jarad Henley MD CV CARDIAC SERVICES PROCEDURES E dited Result - Final * Cardiology Document Scan (09/11/2024 11:17 AM VARIETY PERFORMER) Anatomical Region Laterality Modality Other Result Jarad Henley MD CV CARDIAC SERVICES PROCEDURES F inal Result from Last 3 Months Insurance [employer] [facility] Address: [facility] [id number] [place] [address] ANTHEM ACCESS CHOICE Care Teams Manager Imaging Relationship Specialty Start Date End Date Gloria Urbina MD [address] [facility] [address] [place] [address] PCP - General Family Practice 09/19/24
--- OUTSIDE RECORDS SUMMARY | 2024-11-26 10:25 | XMS_ITS | Referral Summary ---
Author Organization [facility] Address [address] [place] [address] Care Team Providers Care Lead Producer Name Role Phone Gloria Urbina MD Primary Care Provider Encounters Date Type Department Care Team Description 11/09/2024 11:58 AM FISHERIES INSPECTOR - 11/09/2024 11:59 PM FISHERIES INSPECTOR Hospital Encounter [facility] - Breast Imaging [address] [place] [address] 8 [place] [address] Abnormality of left breast on screening mammography Discharge Disposition: Discharge to home or self care 11/01/2024 Orders Only [facility] Cardiology [address] [place] [phone] Amy Sanchez MA 10/31/2024 Telephone [facility] Medical [facility] Cardiology [address] [place] [phone] Juan Henley MD Med Refill 10/31/2024 Telephone [facility] Surgery [address] [place] [phone] Kristina Ngo CMA 10/27/2024 11:30 AM FISHERIES INSPECTOR Office Visit [facility] Surgery [address] [place] [address] 8 [place] [phone] Jessica Odonnell NP At high risk for breast cancer (Primary Dx); Family history of breast cancer; Dense breast tissue 10/27/2024 10:49 AM FISHERIES INSPECTOR - 10/27/2024 11:59 PM FISHERIES INSPECTOR Hospital Encounter [facility] - Breast Imaging [facility] [address] [address] Breast cancer screening by mammogram Discharge Disposition: Discharge to home or self care 09/19/2024 Telephone [facility] Cardiology [address] [facility] [address] [place] [phone] Juan Henley MD 09/19/2024 9:45 AM FISHERIES INSPECTOR Office Visit [facility] Cardiology [address] [place] [address] [address] [place] [phone] Juan Henley MD 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); Inflammatory arthropathy; Need for lipid screening 09/15/2024 Orders Only [facility] Health Information Management [address] [place] [address] Juan Henley MD 09/13/2024 Orders Only [facility] Cardiology [address] [place] [address] [place] [phone] Juan Henley MD 09/12/2024 Orders Only [facility] Health Information Management [address] [place] [address] Juan Henley MD from Last 3 Months [...] IN LEFT EYE FOUR TIMES DAILY. Active [id number]-[id number] x-Kvedrlze-ixz al 27 mg iron-1.13 mg-581.92 mg capsule [...] Comments Blood Pressure 126/80 09/19/2024 9:55 AM FISHERIES INSPECTOR Pulse 93 09/19/2024 9:55 AM FISHERIES INSPECTOR Temperature - - Respiratory Rate - - Oxygen Saturation 97% 09/19/2024 9:55 AM FISHERIES INSPECTOR Inhaled Oxygen Concentration - - Weight 118.8 kg (261 lb 14.5 oz) 2024 10:58 AM FISHERIES INSPECTOR Height 165.1 cm (5' 5 ) 10/27/2024 10:5 8 AM FISHERIES INSPECTOR Body Mass Index 43.58 10/27/2024 10:58 AM FISHERIES INSPECTOR Plan of Treatment Not on file Medical Devices Implanted Type Area Merchandise For Resale Purchasing Agent Device Identifier Shelf Expiration Date Model / Serial / Lot Hernia Mesh Abdomen Lumbar Spine Fusion Instrumentation Implanted: 5 (Quantity not on file) Spine Lumbar Procedures Procedure Name Priority Date/Time Associated Diagnosis Comments DIAGNOSTIC MAMMOGRAM LEFT W MIRANDA Schedule Routine, Read Routine (OP Routine) 11/09/2024 12:47 PM FISHERIES INSPECTOR Abnormality of left breast on screening mammography SCREENING MAMMOGRAM BILATERAL W MIRANDA Schedule Routine, Read Routine (OP Routine) 10/27/2024 11:28 AM FISHERIES INSPECTOR Breast cancer screening by mammogram POCT LIPID PANEL Routine 09/19/2024 11:3 8 AM FISHERIES INSPECTOR Need for lipid screening CARDIOLOGY DOCUMENT SCAN 09/15/2024 CARDIOLOGY DOCUMENT SCAN 09/12/2024 CARDIOLOGY DOCUMENT SCAN Routine 09/11/2024 11:17 AM FISHERIES INSPECTOR from Last 3 Months Results * Diagnostic Mammogram Left W Miranda (11/09/2024 12:47 PM FISHERIES INSPECTOR) Anatomical Region Laterality Modality Breast Left Mammography 11/09/2024 1:04 PM FISHERIES INSPECTOR Impressions 11/09/2024 3:19 PM FISHERIES INSPECTOR Grouped layering calcification in the upper central [...] Diana Jeff M.D. Narrative 11/09/2024 3:19 PM FISHERIES INSPECTOR EXAMINATION: LEFT UNILATERAL DIGITAL DIAGNOSTIC MAMMOGRAM AND [...] and agrees with it. Electronically signed by: Dinaa Jeff M.D. Jessica Odonnell ULTRASOUND SPECIALIST IMG MAMMO PROCEDURES Final Result * Screening Mammogram Bilateral W Miranda (10/27/2024 11:28 AM FISHERIES INSPECTOR) Anatomical Region Laterality Modality Breast Bilateral Mammography Narrative 10/30/2024 11:33 AM FISHERIES INSPECTOR Mammogram Technique: Bilateral Digital Breast Tomosynthesis, Bilateral C-view 2D Screening mammogram. Views obtained: bilateral craniocaudal and bilateral mediolateral oblique. Computer Aided Detection was performed. Mammogram Findings: The present examination has been compared to prior imaging studies performed at [facility] on 02/24/2021, 07/30/2021, 07/27/2022 and 10/18/2023. [...] compared to prior imaging studies performed at [facility] on 02/24/2021, 07/30/2021,07/27/2022 and 10/18/2023. The [...] 0: Incomplete: Need additional imaging evaluation. Result [facility] us Leah Zhao ULTRASOUND SPECIALIST IMG MAMMO PROCEDURES Fin al Result * POCT lipid panel (09/19/2024 11:38 AM FISHERIES INSPECTOR) Cholesterol, POC 117 mg/dL Comment:GLU = 131 HDL, POC 62 mg/dL Triglycerides, POC 144 mg/dL LDL Cholesterol POC 26 mg/dL Chol/HDL Ratio, POC 0.4 Non-HDL Cholesterol, POC 55 mg/dL Cholesterol Total, POC 117 mg/dL Capillary blood 09/19/2024 1 1:38 AM FISHERIES INSPECTOR Result Jarad Henley MD POINT OF CARE TEST ORDERABLES Fi nal Result * Cardiology Document Scan (09/15/2024) Anatomical Region Laterality Modality Other Result Jarad Henley MD CV CARDIAC SERVICES PROCEDURES F inal Result * Cardiology Document Scan (09/12/2024) Anatomical Region Laterality Modality Other Result Jarad Henley MD CV CARDIAC SERVICES PROCEDURES E dited Result - Final * Cardiology Document Scan (09/11/2024 11:17 AM FISHERIES INSPECTOR) Anatomical Region Laterality Modality Other Result Jarad Henley MD CV CARDIAC SERVICES PROCEDURES F inal Result from Last 3 Months Insurance [facility] ACC[facility] ANTHEM ACCESS CHOICE Care Teams Lead Producer Relationship Specialty Start Date End Date Gloria Urbina MD [facility] [facility] [address] [facility] [place] [address] PCP - General Family Practice 09/19/24
--- OUTSIDE RECORDS SUMMARY | 2024-11-26 10:25 | XMS_ITS | Encounter Summary ---
Author Organization [facility] Address [address] [facility] [place] [address] Care Team Providers Care Special Education Secretary Name Role Phone Michael Acharya MD Primary Care Provider [phone] Renetta Vasquez MD Primary Care Provider Un available Encounter Details Date Type Department Care Team (Late st Contact Info) Description 08/12/2018 Lab Requisition [facility] Care DermPath Lab [address] [facility] [place] [phone] Shavonne Anders MD [address] [facility] [address] [place] [address] Social History Tobacco Use Types Packs/Day Years [...] AM CDT) Case Report Dermatopathology Report Case: [id number] Authorizing Provider: Shavonne Anders MD Collected: 08/11/2018 12:00 AM Pathologist: Nell Doty MD Received: 08/12/2018 06:56 AM Specimen: Skin, back 8 10:38 AM CDT DERMATOPATHOLOGY LABORATORY Clinical History R/O cyst, irritated, painful. 10:38 AM [facility] DERMATOPATHOLOGY LABORATORY Gross Description Specimen A: Received is one formalin filled container labeled with the patient's name and designated back. The specimen consists of a [id number] excision. The specimen is serially sectioned and a internet sales representative section is submitted in cassette 1. Jar 1. [facility] Dermatopathology Laboratory performed the technical component only. 10:38 AM [facility] DERMATOPATHOLOGY LABORATORY Embedded Images 10:38 AM [facility] DERMATOPATHOLOGY LABORATORY DISCLAIMER An external and internal positive and negative controls are appropriate for the histochemical, immunohistochemical and immunofluorescence stain(s) in this case (if any), except where stated explicitly. The performance characteristics of the stain(s) cited in this report were developed and its performance characteristic determined by the Dermatopathology Laboratory at [facility]. These tests need not be, and therefore are not, approved by the [place] Food and Drug Administration. The tests are used for clinical purposes. 10:38 AM [facility] DERMATOPATHOLOGY LABORATORY Pathology/Cytolog y TISSUE SPECIMEN FROM SKIN / Unknown 08/11/2018 08/12/2018 6:56 AM CDT Shavonne Anders MD LAB - PATHOLOGY/CYTO LOGY ORDERABLES DERMATOPATHOLOGY LABORATORY [facility] - Department of Dermatology [address] [place] [address], 5th Floor Lab [address] [phone] documented in this encounter Visit Diagnoses Not on filedocumented in this encounter Care Teams Special Education Secretary Relationship Specialty Start Date End Date Michael Acharya MD [address] [place] [address] PCP - General 08/03/18 12/28/19 Renetta Vasquez MD [address] [place] [address] PCP - General 12/29/19 documented as of this encounter
--- OUTSIDE RECORDS SUMMARY | 2024-11-26 10:26 | XMS_ITS | Referral Summary ---
Author Organization [facility] Address [address] [facility] [place] [address] Care Team Providers Care Stna Name Role Phone Renetta Vasquez MD Primary Care Provider Un available Source Comments [facility] EDM[facility],non-owned Affiliates and Associated Physician Practices is amultiple site organization consisting of ambulatory clinics and hospital sitesin [place], [place], [place] and [place]. This disclosure is being madepursuant to the Care Everywhere program and may not contain all information available regarding this patient. Last updated 18.[facility] Encounters Date Type Department Care Team Description 09/05/2024 Lab Requisition [facility] - DermPath Lab [address] [place] [phone] Carla Mcdaniels DO from Last 3 Months [...] Acetaminophen (TYLENOL PO) Active Cholecalciferol (VITAMIN D3) 50099 units capsule 03/09/2019 Active sertraline (ZOLOFT) 50 [...] 36.6 C (97.8 F) 09/19/2018 1:50 PM POLICE CAPTAIN SENIOR Respiratory Rate 21 04/03/2019 1:10 PM CDT [...] Diagnosis Comments DERMATOPATHOLOGY Routine 09/05/2024 8:13 AM POLICE CAPTAIN SENIOR ENDOSCOPY, COLON, DIAGNOSTIC Routine 04/03/2019 11:38 AM CDT Chronic diarrhea from Last 3 Months or Most Recently Relevant to Health Maintenance Results * DERMATOPATHOLOGY (09/05/2024 8:13 AM [facility]) Case Report Dermatopathology Report Case: [id number] Authorizing Provider: Carla Mcdaniels DO Collected: 09/05/2024 08:13 AM Ordering Location: [facility] - Received: 09/05/2024 12:38 PM DermPath Lab Pathologist: Lelo Reid MD Specimen: Skin, left chin 11:11 AM [facility] DERMATOPATHOLOGY LABORATORY Final Diagnosis Specimen A. SKIN, left chin: BENIGN VERRUCOUS KERATOSIS (L82.1) (see microscopic description and comment) 11:11 AM [facility] DERMATOPATHOLOGY LABORATORY Clinical History R/O NMSC 11:11 AM [facility] DERMATOPATHOLOGY LABORATORY Gross Description Specimen A: Received is one formalin filled container labeled with the patient's name and designated left chin. The specimen consists of a shave biopsy measuring 3x3x1 mm. Jar 0. 11:11 AM [facility] DERMATOPATHOLOGY LABORATORY Microscopic Description Specimen A. SKIN, left chin: Sections show hyperkeratosis, papillomatosis, hypergranulosis, and acanthosis. These histological findings can be seen in a verruca vulgaris or a seborrheic keratosis. Additional deeper sections were obtained and reviewed. COMMENT: Given the superficial nature of the biopsy specimen, a deeper dermal process cannot be excluded. 11:11 AM [facility] DERMATOPATHOLOGY LABORATORY Disclaimer An external and internal positive and negative controls are appropriate for the histochemical, immunohistochemical and immunofluorescence stain(s) in this case (if any), except where stated explicitly. The performance characteristics of the stain(s) cited in this report were developed and its performance characteristic determined by the Dermatopathology Laboratory at [facility], directed by Dr. Kelly Crane. These tests need not be, and therefore are not, approved by the [place] Food and Drug Administration. The tests are used for clinical purposes. Billing Codes Specimen Charges Stain Charges 71998 1 4 11:11 AM POLICE CAPTAIN SENIOR DERMATOPATHOLOGY LABORATORY Embedded Images 4 11:11 AM POLICE CAPTAIN SENIOR DERMATOPATHOLOGY LABORATORY Pathology/Cytolo gy TISSUE SPECIMEN FROM SKIN / Unknown 09/05/2024 8:13 AM POLICE CAPTAIN SENIOR 09/05/2024 12:38 PM POLICE CAPTAIN SENIOR Carla Mcdaniels DO LAB - PATHOLOGY/C YTOLOGY ORDERABLES DERMATOPATHOLOGY LABORATORY [facility] - Department of Dermatology [facility] Medicine [address] [place] [address], [address] Floor [address] [phone] * ENDOSCOPY, COLON, DIAGNOSTIC (04/03/2019 11:38 AM CDT) Report Endoscopy POC _ Patient Name: eLopoldo Beck Procedure Date: 04/03/2019 11:38 AM Date [...] bowel preparation was evaluated using the BBPS (Mackay Bowel Preparation Scale) with scores of: Right [...] previously scheduled. Procedure Code(s): --- Professional --- 36060, Colonoscopy, flexible; with biopsy, single or multiple --- Technical --- 40170, Colonoscopy, flexible; with biopsy, single or multiple Diagnosis Code(s): --- Professional --- K52.9, Noninfective gastroenteritis and colitis, unspecified --- Technical --- K52.9, Noninfective gastroenteritis and colitis, unspecified CPT copyright 2017 [employer]. All rights reserved. The codes documented in this report are preliminary and upon computer language coder review may be revised to meet current compliance requirements. Adilene Templeton MD Adilene Templeton MD 04/03/2019 12:54:48 PM Number of Addenda: 0 Note Initiated On: 04/03/2019 11:38 AM [facility] ENDOSCOPY 04/03/2019 11:3 8 AM CDT Adilene Templeton MD GI PROCEDURE [facility] Organization Address City/State/ZIP Co de Phone Number [facility] ENDOSCOPY from Last 3 Months or Most Recently Relevant to Health Maintenance Care Teams Stna Relationship Specialty Start Date End Date Renetta Vasquez MD [address] [facility] [place] [address] PCP - General 12/29/19
--- OUTSIDE RECORDS SUMMARY | 2024-11-26 10:26 | XMS_ITS | Encounter Summary ---
Author Organization [facility] Address [address] [place] [address] Care Team Providers Care Driver Courier Name Role Phone Renetta Vasquez MD Primary Care Provider Un available Encounter Details Date Type Department Care Team (Late st Contact Info) Description 09/05/2024 Lab Requisition [facility] - DermPath Lab [address] [facility] [facility] [place] [id number] Carla Mcdaniels DO [address] [facility] [address] [place] [address] Social History Tobacco Use Types Packs/Day Years [...] Diagnosis Comments DERMATOPATHOLOGY Routine 09/05/2024 8:13 AM SUPERVISING BROKER documented in this encounter Results * DERMATOPATHOLOGY (09/05/2024 8:13 AM SUPERVISING BROKER) Case Report Dermatopathology Report Case: [id number] Authorizing Provider: Carla Mcdaniels DO Collected: 09/05/2024 08:13 AM Ordering Location: [facility] - Received: 09/05/2024 12:38 PM DermPath Lab Pathologist: Lelo Reid MD Specimen: Skin, left chin 11:11 AM [employer]ING [facility] DERMATOPATHOLOGY LABORATORY Final Diagnosis Specimen A. SKIN, left chin: BENIGN VERRUCOUS KERATOSIS (L82.1) (see microscopic description and comment) 4 11:[address] [facility] DERMATOPATHOLOGY LABORATORY Clinical History R/O NMSC 4 11:[address] [facility] DERMATOPATHOLOGY LABORATORY Gross Description Specimen A: Received is one formalin filled container labeled with the patient's name and designated left chin. The specimen consists of a shave biopsy measuring 3x3x1 mm. Jar 0. 4 11:[address] [facility] DERMATOPATHOLOGY LABORATORY Microscopic Description Specimen A. SKIN, left chin: Sections show hyperkeratosis, papillomatosis, hypergranulosis, and acanthosis. These histological findings can be seen in a verruca vulgaris or a seborrheic keratosis. Additional deeper sections were obtained and reviewed. COMMENT: Given the superficial nature of the biopsy specimen, a deeper dermal process cannot be excluded. 11:[address] [facility] DERMATOPATHOLOGY LABORATORY Disclaimer An external and internal positive and negative controls are appropriate for the histochemical, immunohistochemical and immunofluorescence stain(s) in this case (if any), except where stated explicitly. The performance characteristics of the stain(s) cited in this report were developed and its performance characteristic determined by the Dermatopathology Laboratory at [facility], directed by Dr. Kelly Crane. These tests need not be, and therefore are not, approved by the [place] Food and Drug Administration. The tests are used for clinical purposes. Billing Codes Specimen Charges Stain Charges 72787 1 4 11:[address] [facility] DERMATOPATHOLOGY LABORATORY Embedded Images 4 11:[address] [facility] DERMATOPATHOLOGY LABORATORY Pathology/Cytolo gy TISSUE SPECIMEN FROM SKIN / Unknown 09/05/2024 8:13 AM SUPERVISING BROKER 09/05/2024 12:38 PM SUPERVISING BROKER Carla Mcdaniels DO LAB - PATHOLOGY/C YTOLOGY ORDERABLES DERMATOPATHOLOGY LABORATORY [facility] - Department of Dermatology [address], [address] [phone] documented in this encounter Visit Diagnoses Not on filedocumented in this encounter Care Teams Driver Courier Relationship Specialty Start Date End Date Renetta Vasquez MD [address] [id number] PCP - General 12/29/19 documented as of this encounter
--- OUTSIDE RECORDS SUMMARY | 2024-11-26 10:26 | XMS_ITS | Clinical Summary ---
Author Organization 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
--- OUTSIDE RECORDS SUMMARY | 2024-11-26 10:26 | XMS_ITS | Clinical Summary ---
Author Organization [facility] Address [address] [place] [address] Care Team Providers Care Professor Of Engineering Name Role Phone Unavailable Primary Care Provider [...] on file Legal Sex Female 12:12 PM PARASITOLOGY TEACHER Gender Identity Not on file Sexual Orientation [...]
--- OUTSIDE RECORDS SUMMARY | 2024-11-26 10:26 | XMS_ITS | Patient Health Summary ---
Author Organization [facility] [employer] Address [address] [place] [address] Care Team Providers Care Manager [place] Name Role Phone Renetta Vasquez MD Primary Care Provider Un available Note from [facility],non-owned Affiliates and Associated Physician Practices is amultiple site organization consisting of ambulatory clinics and hospital sitesin [place], [place], [place] and [place]. This disclosure is being madepursuant to the Care Everywhere program and may not contain all information available regarding this patient. Last updated 18.[facility] [employer] Allergies * Adhesive Sensitivity(Rash) -Medium Criticality * [...] Acetaminophen (TYLENOL PO) * Cholecalciferol (VITAMIN D3) 10042 units capsule(Started 03/09/2019) * sertraline (ZOLOFT) 50 [...] 36.6 C (97.8 F) 09/19/2018 1:50 PM CRTS Respiratory Rate 21 04/03/2019 1:10 PM CDT [...] URINE(Performed 09/19/2018) Performed for Kidney stones * [place] INSERT NON-INDWELLING BLADDER(Performed 09/19/2018) Performed for Renal stones, Dysuria, Stress incontinence in female * URINALYSIS - POINT OF CARE(Performed 09/19/2018) Performed for Renal stones, Dysuria, Hematuria, unspecified type * IMAGING/RADIOLOGY/XRAY RESULTS ORDER(Performed 09/05/2018) * IMAGING/RADIOLOGY/XRAY RESULTS ORDER(Performed 08/22/2018) * [place] SONO EXAM, TRANSVAGINAL(Performed 08/19/2018) Performed for Chronic pelvic pain in female * DERMATOPATH TECHNICAL REPORT(Performed 08/11/2018) * DERMATOPATHOLOGY(Performed 08/19/2016) Results * DERMATOPATHOLOGY (09/05/2024 8:13 AM [facility]) Only the most recent of3 resultswithin the time period is included. Case Report Dermatopathology Report Case: [id number] Authorizing Provider: Carla Mcdaniels DO Collected: 09/05/2024 08:13 AM Ordering Location: [facility] - Received: 09/05/2024 12:38 PM DermPath Lab Pathologist: Lelo Reid MD Specimen: Skin, left chin 4 11:11 AM [facility] DERMATOPATHOLOGY LABORATORY Final Diagnosis Specimen A. SKIN, left chin: BENIGN VERRUCOUS KERATOSIS (L82.1) (see microscopic description and comment) 4 11:11 AM [facility] DERMATOPATHOLOGY LABORATORY Clinical History R/O NMSC 4 11:11 AM [facility] DERMATOPATHOLOGY LABORATORY Gross Description Specimen A: Received is one formalin filled container labeled with the patient's name and designated left chin. The specimen consists of a shave biopsy measuring 3x3x1 mm. Jar 0. 4 11:11 AM [facility] DERMATOPATHOLOGY LABORATORY Microscopic Description Specimen A. SKIN, left chin: Sections show hyperkeratosis, papillomatosis, hypergranulosis, and acanthosis. These histological findings can be seen in a verruca vulgaris or a seborrheic keratosis. Additional deeper sections were obtained and reviewed. COMMENT: Given the superficial nature of the biopsy specimen, a deeper dermal process cannot be excluded. 4 11:11 AM [facility] DERMATOPATHOLOGY LABORATORY Disclaimer An external and internal positive and negative controls are appropriate for the histochemical, immunohistochemical and immunofluorescence stain(s) in this case (if any), except where stated explicitly. The performance characteristics of the stain(s) cited in this report were developed and its performance characteristic determined by the Dermatopathology Laboratory at [facility], directed by Dr. Kelly Crane. These tests need not be, and therefore are not, approved by the [place] Food and Drug Administration. The tests are used for clinical purposes. Billing Codes Specimen Charges Stain Charges 28801 1 4 11:11 AM [facility] DERMATOPATHOLOGY LABORATORY Embedded Images 4 11:11 AM [facility] DERMATOPATHOLOGY LABORATORY Pathology/Cytolo gy TISSUE SPECIMEN FROM SKIN / Unknown 09/05/2024 8:13 AM CRTS 09/05/2024 12:38 PM CRTS Carla Mcdaniels DO LAB - PATHOLOGY/C YTOLOGY ORDERABLES DERMATOPATHOLOGY LABORATORY [facility] - Department of Dermatology [address], [address] [phone] * (ABNORMAL) C-REACTIVE PROTEIN SENSITIVE (12/20/2019 1:30 [...] with infection and inflammation. Test Performed at: [facility] [address] [place] [address] JOAN MA DO,MPH 12/20/2019 1:30 PM CDT 12/20/2019 1:31 PM CDT Adilene Templeton MD LAB - CHEMISTRY O RDERABLES [facility] [address] [place] [address] * GROSS + MICRO EXAM (STL) (04/03/2019 12:25 PM CDT) Case Report Surgical Pathology Report Case: [id number] Authorizing Provider: Adilene Templeton MD Collected: 04/03/2019 12:25 PM Ordering Location: [facility] Received: 04/03/2019 01:23 PM Pathologist: Meredith Payan MD Specimens: A) - Duodenal Biopsy B) - Colon Biopsy, random 04/04/2019 4:04 PM CDT [facility] Final Diagnosis A. Duodenum, biopsy: - No significant histopathologic abnormality B. Large intestine, random colon, biopsy: - Benign fragments of colonic mucosa with prominent lymphoid aggregates. - No evidence of active colitis - No evidence of microscopic colitis Amber 04/04/2019 4:04 PM CDT [facility] Clinical History The patient is a 38-year-old woman with chronic diarrhea. 04/04/2019 4:04 PM CDT [facility] Gross Description A. Received in formalin, [...] cassette B1. REHAN/radha 04/04/2019 4:04 PM CDT [facility] Microscopic Description Microscopic examination substantiates the final diagnosis. Amber 04/04/2019 4:04 PM CDT [facility] Disclaimer All histochemical and/or immunohistochemical results are interpreted with controls that demonstrate appropriate staining reactions before reporting results. Note on use of immunocytochemistry reagents: This test was developed and its performance characteristic determined by [facility], Department of Laboratory Medicine. It has not been cleared or approved by the U.S. Food and Drug Administration (FDA). The FDA has determined that such clearance or approval is not necessary. The test is used for clinical purpose. It should not be regarded as investigational or for research. This laboratory is certified to perform high complexity testing. 04/04/2019 4:04 PM CDT [facility] Embedded Images 04/04/2019 4:04 PM CDT [facility] Pathology/Cytology DUODENAL BIOPSY SPECIMEN / Unknown 04/03/2019 12:25 PM CDT 04/03/2019 1:23 PM CDT Miscellaneous samples (specimen) COLONIC BIOPSY SPECIMEN / Unknown 04/03/2019 12:44 PM CDT 04/03/2019 1:23 PM CDT Adilene Templeton MD LAB - PATHOLOGY/C YTOLOGY ORDERABLES [facility] [address] [place] [address] * EGD (04/03/2019 11:40 AM CDT) Report [...] pathology results. Procedure Code(s): --- Professional --- 72744, Esophagogastroduode noscopy, flexible, transoral; with biopsy, single or multiple --- Technical --- 48879, Esophagogastroduode noscopy, flexible, transoral; with biopsy, single or multiple Diagnosis Code(s): --- Professional --- R19.7, Diarrhea, unspecified --- Technical --- R19.7, Diarrhea, unspecified CPT copyright 2017 [employer]. All rights reserved. The codes documented in this report are preliminary and upon pre coder review may be revised to meet current compliance requirements. Adilene Templeton MD ____ Adilene Templeton MD 04/03/2019 12:19:40 PM Number of Addenda: 0 Note Initiated On: 04/03/2019 11:40 AM [facility] 04/03/2019 11:4 0 AM CDT Adilene Templeton MD GI PROCEDURE ORDE EMMY [facility] * ENDOSCOPY, COLON, DIAGNOSTIC (04/03/2019 11:38 [...] bowel preparation was evaluated using the BBPS ([place] Bowel Preparation Scale) with scores of: Right [...] previously scheduled. Procedure Code(s): --- Professional --- 35782, Colonoscopy, flexible; with biopsy, single or multiple --- Technical --- 60401, Colonoscopy, flexible; with biopsy, single or multiple Diagnosis Code(s): --- Professional --- K52.9, Noninfective gastroenteritis and colitis, unspecified --- Technical --- K52.9, Noninfective gastroenteritis and colitis, unspecified CPT copyright 2017 [employer]. All rights reserved. The codes documented in this report are preliminary and upon pre coder review may be revised to meet current compliance requirements. Adilene Templeton MD Adilene Templeton MD 04/03/2019 12:54:48 PM Number of Addenda: 0 Note Initiated On: 04/03/2019 11:38 AM [facility] 04/03/2019 11:3 8 AM CDT Adilene Templeton MD GI PROCEDURE ORDCk BOOTH Performing Organization Address City/[facility]/ZIP Co de Phone Number [facility] * HCG URINE QUALITATIVE - POCT (IP) INTERFACED (04/03/2019 11:27 AM CDT) HCG Qual Urine Negative Negative 04/03/2019 11:28 AM CDT [facility] Urine URINE / Unknown 04/03/2019 1 1:27 AM CDT 04/03/2019 11:28 AM CDT Adilene Templeton MD LAB - POINT OF CA RE ORDERABLES Performing Organization Address [facility] Co de Phone Number [facility] [address] [place] [address] * HCG URINE QUAL POCT NOTIFICATION (04/03/2019 11:01 AM CDT) Comment Notification Label Only - See Separate Report 04/03/2019 12:30 PM CDT [facility] Urine URINE / Unknown 04/03/2019 1 1:01 AM CDT 04/03/2019 11:01 AM CDT Adilene Templeton MD LAB - URINALYSIS ORDERABLES Performing Organization Address [facility] Co de Phone Number [facility] [address] [place] [address] * CULTURE STOOL PANEL (02/14/2019 8:37 AM CDT) [facility] Comment: SHIGA TOXINS, EIA W/RFL TO E.COLI O157 CULTURE MICRO NUMBER: [id number] TEST STATUS: FINAL SPECIMEN SOURCE: STOOL SPECIMEN QUALITY: ADEQUATE RESULT: Not Detected Culture [facility] Comment: CAMPYLOBACTER, CULTURE MICRO NUMBER: [id number] TEST STATUS: FINAL SPECIMEN SOURCE: STOOL SPECIMEN QUALITY: ADEQUATE RESULT: No enteric Campylobacter isolated Culture [facility] Comment: SALMONELLA AND SHIGELLA, CULTURE MICRO NUMBER: [id number] TEST STATUS: FINAL SPECIMEN SOURCE: STOOL SPECIMEN QUALITY: ADEQUATE RESULT: No Salmonella or Shigella isolated REPORT COMMENT: SPLIT 02/13/2019 FROM [id number] Test Performed at: [facility] [address] POOJA MATTHEWS MD Stool STOOL SPECIMEN / Unknown 02/14/2019 8:37 AM CDT 02/14/2019 8:38 AM CDT Adilene Templeton MD LAB - MICROBIOLOG Y ORDERABLES Performing Organization Address [facility] Co de Phone Number [address] [address] * C DIFFICILE CX W/RFLX TO TOXIN B PCR (02/13/2019 2:59 PM CDT) C difficile Culture NOT ISOLATED [facility] Comment: REFERENCE RANGE: NOT ISOLATED For additional information, please refer to http://education.[employer]/faq/MFO169 (This link is being provided for informational/ educational purposes only.) REPORT COMMENT: FASTING:NO COLLECTION KIT GIVEN TO PATIENT. PATIENT ADVISED TO RETURN. Test Performed at: [facility] [address] [place] [address] Yoav YU Microbiology STOOL SPECIMEN / Unknown 02/13/2019 2:59 PM CDT 02/14/2019 2:45 AM CDT Adilene Templeton MD LAB - MICROBIOLOG Y ORDERABLES Performing Organization Address [facility] de Phone Number [address] [address] * CALPROTECTIN FECAL (02/13/2019 2:59 PM CDT) [...] suggested for borderline values. Test Performed at: [facility] [facility] [address] [place] [address] CHAD PORTILLO MD,PHD,FRANK 02/13/2019 2:59 PM CDT 02/14/2019 2:45 AM CDT Adilene Templeton MD LAB - BODY FLUID ORDERABLES Performing Organization Address [facility] [place] [address] * PH FECES (02/13/2019 2:59 PM CDT) pH Feces 7.01 5.92 - 8.00 pH units [facility] Comment: Test Performed at: [facility] [address] [address] PRISCILLA ELY MD,PHD Stool STOOL SPECIMEN / Unknown 02/13/2019 2:59 PM CDT 02/14/2019 2:45 AM CDT Adilene Templeton MD LAB - BODY FLUID ORDERABLES Performing Organization Address [facility] [place] [address] * PANCREATIC ELASTASE FECES (02/13/2019 2:59 PM [...] PATIENT ADVISED TO RETURN. Test Performed at: [facility] [facility] [address] [place] [address] CHAD PORTILLO MD,PHD,FRANK Stool STOOL SPECIMEN / Unknown 02/13/2019 2:59 PM CDT 02/14/2019 1:59 AM CDT Adilene Templeton MD LAB - BODY FLUID ORDERABLES Performing Organization Address [facility] de Phone Number [address] [address] * IRON + TIBC + FERRITIN (02/10/2019 12:55 PM CDT) Iron 63 40 - 190 mcg/dL [facility] TIBC 329 250 - 450 mcg/dL (calc) [facility] % Saturation 19 11 - 50 % (calc) [facility] Ferritin 108 10 - 154 ng/mL [facility] Comment: Test Performed at: [facility] [address] [place] [address] JOAN MA DO,MPH Blood BLOOD SPECIMEN / Unknown 02/10/2019 12:55 PM CDT 02/10/2019 1:06 PM CDT Adilene Templeton MD LAB - CHEMISTRY O RDERABLES Performing Organization Address [facility] de Phone Number [place] [phone] [place] [address] * HLA TYPING CELIAC DISEASE (02/10/2019 12:55 PM CDT) Pathologist [facility] Interpretation see note [facility] Comment: The patient does not have the HLA-DQ variants associated with celiac disease. More than 97% of celiac patients carry either HLA-DQ2(DQA1*05/DQB1*02) or HLA-DQ8(DQA1*03/DQB1*0302) or both. Genetic counseling as needed. HLA-DQ2 Negative [facility] HLA-DQB Negative [facility] HLA-DQA1 01 [facility] HLA-DQA1 01 [facility] HLA-DQB1 0602 [facility] HLA-DQB1 0603 [facility] Results Reviewed By see note [facility] Comment: Sesar Palacio, Ph.D.,[facility] Sales Representative [employer], Molecular Genetics Typing performed by PCR and hybridization with sequence specific oligonucleotide probes (SSO) using the FDA-cleared LABType(R) SSO Kit. Test Performed at: [facility] PRISCILLA ELY MD,PHD Blood BLOOD SPECIMEN / Unknown 02/10/2019 12:55 PM CDT 02/10/2019 1:06 PM CDT Adilene Templeton MD LAB - SEROLOGY OR DERABLES Performing Organization Address [facility] Co de Phone Number [address] [address] * TISSUE TRANSGLUTAMINASE AB IGA (02/10/2019 12:55 PM CDT) Pathologist [facility] TTG Antibody IgA 1 <4 U/mL [facility] Comment: Value Interpretation <4 U/mL: No Antibody Detected >or=4 U/mL: Antibody Detected Test Performed at: [facility] [address] [place] [address] PRISCILLA ELY MD,PHD Blood BLOOD SPECIMEN / Unknown 02/10/2019 12:55 PM CDT 02/10/2019 1:06 PM CDT Adilene Templeton MD LAB - SEROLOGY OR DERABLES Performing Organization Address [facility] Phone Number [address] [address] * (ABNORMAL) VITAMIN D 1,25 DIHYDROXY (02/10/2019 12:55 PM CDT) Pathologist [facility] Vitamin D Total 79(H) 18 - 72 [...] analytical performance characteristics have been determined by [facility]. It has not been cleared or approved by the US Food and Drug Administration. This assay has been validated pursuant to the CLIA regulations and is used for clinical purposes. REPORT COMMENT: FASTING:NO COLLECTION KIT GIVEN TO PATIENT. PATIENT ADVISED TO RETURN. Test Performed at: [facility] [address] [place] [address] AZEEM ANDRE MD,PHD Blood BLOOD SPECIMEN / Unknown 02/10/2019 12:55 PM CDT 02/10/2019 1:06 PM CDT Adilene Templeton MD LAB - CHEMISTRY O RDERABLES Performing Organization Address [facility] Co de Phone Number [facility] [address] [place] [address] * ERYTHROCYTE SEDIMENTATION RATE (02/10/2019 12:55 PM CDT) Pathologist [facility] Erythrocyte Sedimentation Rate Westergren 2 < OR = 20 mm/h [facility] Comment: Test Performed at: [facility] [address] [place] [address] JOAN MA DO,MPH 02/10/2019 12:5 5 PM CDT 02/10/2019 1:06 PM CDT Adilene Templeton MD LAB - HEMATOLOGY ORDERABLES Performing Organization Address [facility] de Phone Number [facility] [address] [place] [address] * CBC WITH DIFFERENTIAL (02/10/2019 12:55 PM CDT) Pathologist [facility] White Blood Cell Count 5.8 3.8 - [...] 0.3 % [facility] Comment: Test Performed at: [place] [address] JOAN MA DO,MPH Blood BLOOD SPECIMEN / Unknown 02/10/2019 12:55 PM CDT 02/10/2019 1:06 PM CDT Adilene Templeton MD LAB - HEMATOLOGY ORDERABLES [facility] [address] [place] [address] * COMPREHENSIVE METABOLIC PANEL (02/10/2019 12:55 PM [...] 29 U/L [facility] Comment: Test Performed at: [facility] [address] JOAN MA DO,MPH Blood BLOOD SPECIMEN / Unknown 02/10/2019 12:55 PM CDT 02/10/2019 1:06 PM CDT Adilene Templeton MD LAB - CHEMISTRY O RDERAAGUILAR Performing Organization Address [facility] Co de Phone Number [facility] [id number] [place] [address] * VITAMIN B12 (02/10/2019 12:55 PM CDT) Pathologist [facility] Vitamin B12 521 200 - 1100 pg/mL [facility] Comment: Test Performed at: [facility] [address] [place] [address] JOAN MA DO,MPH Blood BLOOD SPECIMEN / Unknown 02/10/2019 12:55 PM CDT 02/10/2019 1:06 PM CDT Adilene Templeton MD LAB - CHEMISTRY O CHANDRIKA Performing Organization Address [facility] [place] [address] * TSH (02/10/2019 12:55 PM CDT) Pathologist [facility] TSH 1.52 mIU/L [facility] Comment: Reference Range > or = 20 Years 0.40-4.50 Ranges First trimester 0.26-2.66 Second trimester 0.55-2.73 Third trimester 0.43-2.91 Test Performed at: [facility] [address] [facility] [place] [place] [address] JOAN MA DO,MPH Blood BLOOD SPECIMEN / Unknown 02/10/2019 12:55 PM CDT 02/10/2019 1:06 PM CDT Adilene Templeton MD LAB - CHEMISTRY O RDERABLES Performing Organization Address [facility] [place] [address] * URINALYSIS REFLEX TO MICROSCOPIC NO CULTURE (09/20/2018 9:00 PM CRTS) Pathologist [facility] Color UA YELLOW YELLOW [facility] Appearance CLEAR CLEAR [facility] Specific [place] UA 1.018 1.001 - 1.035 [facility] pH UA 7.0 5.0 - 8.0 [facility] Glucose UA NEGATIVE NEGATIVE [facility] Bilirubin UA NEGATIVE NEGATIVE [facility] Ketone UA NEGATIVE NEGATIVE [facility] Blood UA NEGATIVE NEGATIVE [facility] Protein UA NEGATIVE NEGATIVE [facility] Nitrite UA NEGATIVE NEGATIVE [facility] Leukocyte UA NEGATIVE NEGATIVE [facility] Comment: Test Performed at: [facility] [address] [place] [address] JOAN MA DO,MPH 09/20/2018 2:3 3 AM CRTS Hannah Juan Pablo [facility] LAB - URI NALYSIS ORDERABLES Performing Organization Address [facility] de Phone Number [address] [address] * CULTURE URINE (09/20/2018 9:00 PM CRTS) Only the most recent of3 resultswithin the time period is included. Culture [facility] Comment: CULTURE, URINE, ROUTINE MICRO NUMBER: [id number] TEST STATUS: FINAL SPECIMEN SOURCE: URINE,CATH STRAIGHT SPECIMEN QUALITY: ADEQUATE RESULT: No Growth NO COLLECTION DATE RECEIVED. WE HAVE USED THE DATE THE SPECIMEN WAS RECEIVED BY THIS LABORATORY THE COLLECTION DATE. IF THIS IS INCORRECT, PLEASE CONTACT CLIENT SERVICES. PHONE NUMBER: [phone] Test Performed at: [facility] [address] POOJA MATTHEWS MD Urine URINE SPECIMEN OBTAINED BY SINGLE CATHETERIZATION OF URINARY BLADDER / Unknown 09/20/2018 2:33 AM CRTS Hannah Juan Pablo Princessroberta [facility] LAB - RICHELLE ROBIOLOGY ORDERABLES Performing Organization Address [facility] de Phone Number [address] [address] * CHLAMYDIA + GC AMPLIFIED PROBE (09/20/2018 2:00 PM CRTS) Only the most recent of2 resultswithin the time period is included. Chlamydia trachomatis RNA NOT DETECTED NOT DETECTED [facility] GC RNA NOT DETECTED NOT DETECTED [facility] Please Note [facility] Comment: This test was performed using the APTIMA COMBO2 Assay ([employer] The analytical performance characteristics of this assay, when used to test SurePath specimens have been determined by [facility]. NO COLLECTION DATE RECEIVED. WE HAVE USED THE DATE THE SPECIMEN WAS RECEIVED BY THIS LABORATORY THE COLLECTION DATE. IF THIS IS INCORRECT, PLEASE CONTACT CLIENT SERVICES. PHONE NUMBER: [phone] Test Performed at: [facility] [address] [address] [facility] [address] JOAN MA DO,MPH Microbiology URINE / Unknown 018 5:03 AM CRTS Hannah Sharma [facility] LAB - RICHELLE ROBIOLOGY ORDERABLES [facility] [address] [place] [address] * URINALYSIS AUTO - POINT OF CARE (AMB) SLU (09/19/2018 4:02 PM CRTS) Glucose UA neg Bilirubin UA POCT neg Ketones UA POCT neg Specific [place] UA 1.015 Blood Urine POCT neg pH UA 6.5 Protein UA neg Urobilinogen UA neg Nitrite UA neg WBC UA neg Urine URINE / Unknown 09/19/2018 4 :02 PM CRTS Elsie Langston [facility] LAB - POINT O F CARE ORDERABLES * [place] INSERT NON-INDWELLING BLADDER (09/19/2018 1:20 PM CRTS) Narrative Hannah Sharma APRN-CNP - 09/19/2018 1:20 PM CRTS Hannah Sharma APRN-CNP 09/19/2018 1:20 PM Urethral [...] pH units Blood UA trace Negative Specific [place] UA POCT 1.015 1.002 - 1.030 Ketone UA neg Negative Bilirubin UA POCT neg Negative Glucose UA neg Negative Urine URINE / Unknown 09/19/2018 Hannah Sharma RECORDS AND INFORMATION MANAGER-CHASSIS WIRER LAB - POI NT OF CARE ORDERABLES * IMAGING/RADIOLOGY/XRAY RESULTS ORDER (09/05/2018 7:09 AM CRTS) Only the most recent of2 resultswithin the time period is included. Anatomical Region Laterality Modality Other Narrative 09/05/2018 7:09 AM CRTS Ordered by an unspecified provider. Scanned Document IMAGING * [place] SONO EXAM, TRANSVAGINAL (08/19/2018 10:46 AM CRTS) Narrative Brenna Osorio Cherie - 08/19/2018 10:46 AM CRTS Brenna Osorio Cherie 08/19/2018 10:46 AM Ready in [employer]. Brodie Wagner MD PROCEDURE/MINOR LAZAR RGICAL ORDERABLES * DERMATOPATH TECHNICAL REPORT (08/11/2018 12:00 AM CDT) Case Report Dermatopathology Report Case: [id number] Authorizing Provider: Shavonne Anders MD Collected: 08/11/2018 12:00 AM Pathologist: Nell Doty MD Received: 08/12/2018 06:56 AM Specimen: Skin, back 10:38 AM T DERMATOPATHOLOGY LABORATORY Clinical History R/O cyst, irritated, painful. 8 10:38 AM [facility] DER[facility]ORATORY Gross Description Specimen A: Received is one formalin filled container labeled with the patient's name and designated back. The specimen consists of a [id number] excision. The specimen is serially sectioned and a client relations representative section is submitted in cassette 1. Jar 1. [facility] Dermatopathology Laboratory performed the technical component only. 8 10:38 AM [facility] DERMATOPATHOLOGY LABORATORY Embedded Images 10:38 AM [facility] DERMATOPATHOLOGY LABORATORY DISCLAIMER An external and internal positive and negative controls are appropriate for the histochemical, immunohistochemical and immunofluorescence stain(s) in this case (if any), except where stated explicitly. The performance characteristics of the stain(s) cited in this report were developed and its performance characteristic determined by the Dermatopathology Laboratory at [facility]. These tests need not be, and therefore are not, approved by the [place] Food and Drug Administration. The tests are used for clinical purposes. 8 10:38 AM CDT DERMATOPATHOLOGY LABORATORY Pathology/Cytolog y TISSUE SPECIMEN FROM SKIN / Unknown 08/11/2018 08/12/2018 6:56 AM CDT Shavonne Anders MD LAB - PATHOLOGY/CYTO LOGY ORDERABLES DERMATOPATHOLOGY LABORATORY [facility] - Department of Dermatology [address] [place] [address], 5th Floor Lab B [address] [phone] Care Teams Manager [place] Relationship Specialty Start Date End Date Renetta Vasquez MD [address] [address] PCP - General 12/29/19
--- OUTSIDE RECORDS SUMMARY | 2024-11-26 10:26 | XMS_ITS | Clinical Summary ---
Author Organization [facility] Address [address] [place] [address] Care Team Providers Care Director Athletic Name Role Phone Renetta Vasquez MD Primary Care Provider Un available Source Comments [facility],non-owned Affiliates and Associated Physician Practices is amultiple site organization consisting of ambulatory clinics and hospital sitesin [place], [place], [place] and [place]. This disclosure is being madepursuant to the Care Everywhere program and may not contain all information available regarding this patient. Last updated 18.[facility] Allergies Active Allergy Reactions Criticality Noted Date [...] Acetaminophen (TYLENOL PO) Active Cholecalciferol (VITAMIN D3) 76961 units capsule 03/09/2019 Active sertraline (ZOLOFT) 50 [...] Department Care Team Description 09/05/2024 Lab Requisition [facility] - DermPath Lab [address] [facility], [place] [address] Carla Mcdaniels DO from Last 3 Months [...] 36.6 C (97.8 F) 09/19/2018 1:50 PM PAROLE OFFICER Respiratory Rate 21 04/03/2019 1:10 PM CDT [...] Diagnosis Comments DERMATOPATHOLOGY Routine 09/05/2024 8:13 AM PAROLE OFFICER ENDOSCOPY, COLON, DIAGNOSTIC Routine 04/03/2019 11:38 AM CDT Chronic diarrhea from Last 3 Months or Most Recently Relevant to Health Maintenance Results * DERMATOPATHOLOGY (09/05/2024 8:13 AM [facility]) Case Report Dermatopathology Report Case: [id number] Authorizing Provider: Carla Mcdaniels DO Collected: 09/05/2024 08:13 AM Ordering Location: [facility] - Received: 09/05/2024 12:38 PM DermPath Lab Pathologist: Lelo Reid MD Specimen: Skin, left chin 11:11 AM [facility] DERMATOPATHOLOGY LABORATORY Final Diagnosis Specimen A. SKIN, left chin: BENIGN VERRUCOUS KERATOSIS (L82.1) (see microscopic description and comment) 11:11 AM [facility] DERMATOPATHOLOGY LABORATORY Clinical History R/O NMSC 11:11 AM [facility] DERMATOPATHOLOGY LABORATORY Gross Description Specimen A: Received is one formalin filled container labeled with the patient's name and designated left chin. The specimen consists of a shave biopsy measuring 3x3x1 mm. Jar 0. 11:11 AM [facility] DERMATOPATHOLOGY LABORATORY Microscopic Description Specimen A. SKIN, left chin: Sections show hyperkeratosis, papillomatosis, hypergranulosis, and acanthosis. These histological findings can be seen in a verruca vulgaris or a seborrheic keratosis. Additional deeper sections were obtained and reviewed. COMMENT: Given the superficial nature of the biopsy specimen, a deeper dermal process cannot be excluded. 11:11 AM [facility] [...] purposes. Billing Codes Specimen Charges Stain Charges 46386 1 11:11 AM [facility] DERMATOPATHOLOGY LABORATORY Embedded Images 11/27/202 4 11:11 AM PAROLE OFFICER DERMATOPATHOLOGY LABORATORY Pathology/Cytolo gy TISSUE SPECIMEN FROM SKIN / Unknown 09/05/2024 8:13 AM PAROLE OFFICER 09/05/2024 12:38 PM PAROLE OFFICER Carla Beard Arslan [facility] - PATHOLOGY/C YTOLOGY ORDERABLES DERMATOPATHOLOGY LABORATORY [facility] - Department of Dermatology [facility] Medicine [address] [place] [address] [phone] * ENDOSCOPY, COLON, DIAGNOSTIC (04/03/2019 11:38 AM [...] bowel preparation was evaluated using the BBPS ([place] Bowel Preparation Scale) with scores of: Right [...] previously scheduled. Procedure Code(s): --- Professional --- 02078, Colonoscopy, flexible; with biopsy, single or multiple --- Technical --- 82170, Colonoscopy, flexible; with biopsy, single or multiple Diagnosis Code(s): --- Professional --- K52.9, Noninfective gastroenteritis and colitis, unspecified --- Technical --- K52.9, Noninfective gastroenteritis and colitis, unspecified CPT copyright 2017 [employer]. All rights reserved. The codes documented in this report are preliminary and upon executive associate review may be revised to meet current compliance requirements. Adilene Templeton MD Adilene Templeton MD 04/03/2019 12:54:48 PM Number of Addenda: 0 Note Initiated On: 04/03/2019 11:38 AM [facility] ENDOSCOPY 04/03/2019 11:3 8 AM CDT Adilene Templeton MD [facility] Organization Address City/State/ZIP Co de Phone Number [facility] ENDOSCOPY from Last 3 Months or Most Recently Relevant to Health Maintenance Care Teams Director Athletic Relationship Specialty Start Date End Date Renetta Vasquez MD [address] [address] PCP - General 12/29/19
--- OUTSIDE RECORDS SUMMARY | 2024-11-26 10:26 | XMS_ITS | Clinical Summary ---
Author Organization [facility] Address [address] [place] [address] Care Team Providers Care Information Consultant Name Role Phone None, Provider MD Primary [...] to complete this topic Insurance Care Teams Information Consultant Relationship Specialty Start Date End Date None, Provider, MD PCP - General UNKNOWN PHYSICIAN SPECIALTY 04/05/24
--- OUTSIDE RECORDS SUMMARY | 2024-11-26 10:26 | XMS_ITS | Encounter Summary ---
Author Organization [facility] Healthcare Address [address] [place] [address] Care Team Providers Care Iron Carrier Name Role Phone Michael Acharya MD Primary Care Provider [phone] Sarita Lopez NP Primary Care Provider [phone] Cristina Navarro NP Primary Care Provider + Gloria Urbina MD Primary Care Provider Encounter Details Date Type Department Care Team (Late st Contact Info) Description 08/05/2020 Telephone [facility] [address] [place] [address] Bentley Mehta, Social History Tobacco Use [...] on filedocumented in this encounter Care Teams Iron Carrier Relationship Specialty Start Date End Date Michael Acharya MD [address] [place] [address] PCP - General 07/26/17 07/19/22 Sarita Lopez NP [address] [place] [address] PCP - General Nurse Practitioner 07/20/22 12/02/23 Cristina Navarro NP [address] [place] [address] [address] [place] [phone] PCP - General Nurse Practitioner 12/03/23 09/18/24 Gloria Urbina MD [address] [place] [address] [address] [place] [address] PCP - General Family Practice 09/19/24 documented as of this encounter
--- OUTSIDE RECORDS SUMMARY | 2024-11-26 10:26 | XMS_ITS | Encounter Summary ---
Author Organization [facility] Healthcare Address [address] [place] [address] Care Team Providers Care Shear Helper Name Role Phone Gloria Urbina MD Primary Care Provider Reason for Visit * Reason Onset Date Comments Med Refill 10/31/2024 Encounter Details Date Type Department Care Team (Late st Contact Info) Description 10/31/2024 Telephone [facility] Medical Group Cardiology [address] [place] [phone] Juan Henley MD [address] [facility] [address] [facility] [address] [place] [address] Med Refill Social History Tobacco [...] 10 mg sent to pharmacy at requested. NISTRATIVE SUPPORT ASSOCIATE * Telephone Encounter - Marisela Blake - 11/01/2024 2:05 PM CST Patient returning call. Requesting a call back. Please advise. Thank you. Contact [phone] NISTRATIVE SUPPORT ASSOCIATE * Telephone Encounter - Amy Sanchez MA - 11/01/2024 1:57 PM CST LM asking pt to call office NISTRATIVE SUPPORT ASSOCIATE * Telephone Encounter - Amy Sanchez MA - 10/31/2024 1:[address] Henley, Will you be prescribing pt's Crestor and should she be on 20 mg or 10 mg? Please advise? Thank you NISTRATIVE SUPPORT ASSOCIATE * Telephone Encounter - Marisela Blake - 10/31/2024 12:24 PM CST Patient requesting refill for rosuvastatin (CRESTOR) 10 mg one tab by mouth daily. with 90 day supply. Please send to [facility] pharmacy. Thank you. Contact [phone] NISTRATIVE SUPPORT ASSOCIATE documented in this encounter Plan of Treatment Not on file documented as of this encounter Visit Diagnoses Not on filedocumented in this encounter Care Teams Shear Helper Relationship Specialty Start Date End Date Gloria Urbina MD [facility] [address] [place] [phone] PCP - General Family Practice 09/19/24 documented as of this encounter
--- OUTSIDE RECORDS SUMMARY | 2024-11-26 10:26 | XMS_ITS | Encounter Summary ---
Author Organization [facility] Healthcare Address [address] [place] [address] Care Team Providers Care Housing Director Name Role Phone Cristina Navarro NP Primary Care Provider + Gloria Urbina MD Primary Care Provider Encounter Details Date Type Department Care Team (Late st Contact Info) Description 09/15/2024 Orders Only [facility] Information Management [address] [place] [address] Juan Henley MD [address] [address] Social History Tobacco Use Types [...] on filedocumented in this encounter Care Teams Housing Director Relationship Specialty Start Date End Date Cristina Navarro NP [address] [facility] [address] [place] [phone] PCP - General Nurse Practitioner 12/03/23 09/18/24 Gloria Urbina MD [address] [place] [address] [address] [place] [address] PCP - General Family Practice 09/19/24 documented as of this encounter
--- OUTSIDE RECORDS SUMMARY | 2024-11-26 10:26 | XMS_ITS | Encounter Summary ---
Author Organization [facility] Address [address] [facility] [place] [address] Care Team Providers Care Chair Post Machine Operator Name Role Phone Renetta Vasquez MD Primary Care Provider Un available Encounter Details Date Type Department Care Team (Late st Contact Info) Description 08/12/2023 Lab Requisition [facility] - DermPath Lab [address] [facility], [place] [phone] Shavonne Anders MD [address] [facility] 3 [place] [address] Social History Tobacco Use Types Packs/Day Years [...] PM CDT) Case Report Dermatopathology Report Case: [id number] Authorizing Provider: Shavonne Anders MD Collected: 08/12/2023 01:55 PM Ordering Location: [facility] DermPath Lab Received: 08/13/2023 01:19 PM Pathologist: Alexia Rogers MD Specimen: Skin, chin 3:23 PM MACHINE RUG CLEANER DERMATOPATHOLOGY LABORATORY Final Diagnosis Specimen A. 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 The specimen consists of a shave biopsy measuring 5x3x1 mm. Jar 0. 3:23 PM [facility] DERMATOPATHOLOGY LABORATORY Microscopic Description Specimen A. [...] larger lesion, these findings may not be sales representative rural power of the entire lesion. Clinicopathologic correlation is recommended. 3 3:23 PM [facility] DERMATOPATHOLOGY LABORATORY Disclaimer An external and internal positive and negative controls are appropriate for the histochemical, immunohistochemical and immunofluorescence stain(s) in this case (if any), except where stated explicitly. The performance characteristics of the stain(s) cited in this report were developed and its performance characteristic determined by the Dermatopathology Laboratory at [facility], directed by Dr. Kelly Crane. These tests need not be, and therefore are not, approved by the [place] Food and Drug Administration. The tests are used for clinical purposes. Billing Codes Specimen Charges Stain Charges 23439 1 3 3:23 PM [facility] DERMATOPATHOLOGY LABORATORY Embedded Images 3 3:23 PM [facility] DERMATOPATHOLOGY LABORATORY Pathology/Cytolo gy TISSUE SPECIMEN FROM SKIN / Unknown 08/12/2023 1:55 PM CDT 08/13/2023 1:19 PM CDT Shavonne Anders MD LAB - PATHOLOGY/CYTO LOGY ORDERABLES DERMATOPATHOLOGY LABORATORY [facility] - Department of Dermatology [facility] [address] [facility], 3rd Floor [address] [phone] documented in this encounter Visit Diagnoses Not on filedocumented in this encounter Care Teams Chair Post Machine Operator Relationship Specialty Start Date End Date Renetta Vasquez MD [address] [address] PCP - General 12/29/19 documented as of this encounter
== END 2024-11-26 09:52 | disposition home or self-care (01) ==
PROVIDERS: Emergency Provider Nurse Practitioner Family; PCP Family Medicine
DX: J01.90 Acute sinusitis, unspecified (principal); I25.2 Old myocardial infarction; E11.9 Type 2 diabetes mellitus without complications; Z79.84 Long term (current) use of oral hypoglycemic drugs; G47.30 Sleep apnea, unspecified; K21.9 Gastro-esophageal reflux disease without esophagitis; K90.0 Celiac disease; N80.9 Endometriosis, unspecified
CPT/HCPCS: 99213; G0463

== ENCOUNTER 2024-12-04 15:54 | Outpatient (CLI) | payer BC, SELFPAY ==
--- OUTSIDE RECORDS SUMMARY | 2024-12-04 18:22 | XMS_ITS | Referral Summary ---
Author Organization [facility] Healthcare Address [address] [place] [address] Care Team Providers Care Supervisor [address] Name Role Phone Gloria Urbina MD Primary Care Provider Encounters Date Type Department Care Team Description 11/09/2024 11:58 AM TERMITE INSPECTOR - 11/09/2024 11:59 PM TERMITE INSPECTOR Hospital Encounter [facility] - Breast Imaging [address] [place] [address] 8 [place] [address] Abnormality of left breast on screening mammography Discharge Disposition: Discharge to home or self care 11/01/2024 Orders Only [facility] Medical Group Cardiology [address] [place] [phone] Amy Sanchez MA 10/31/2024 Telephone [facility] Medical [facility] Cardiology [address] [place] [address] Juan Henley MD Med Refill 10/31/2024 Telephone [facility] Surgery [address] [place] [phone] Kristina Ngo CMA 10/27/2024 11:30 AM TERMITE INSPECTOR Office Visit [facility] Surgery [address] [place] [address] 8 [place] [address] Jessica Odonnell NP At high risk for breast cancer (Primary Dx); Family history of breast cancer; Dense breast tissue 10/27/2024 10:49 AM TERMITE INSPECTOR - 10/27/2024 11:59 PM TERMITE INSPECTOR Hospital Encounter [facility] - Breast Imaging [facility] [address] [address] Breast cancer screening by mammogram Discharge Disposition: Discharge to home or self care 09/19/2024 Telephone [facility] Cardiology [address] [facility] [address] [place] [phone] Juan Henley MD 09/19/2024 9:45 AM TERMITE INSPECTOR Office Visit [facility] Cardiology [address] [place] [address] [address] [place] [phone] Juan Henley MD 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 Active coaeegxr74-gfu m-Vilinmdo-bak al 27 mg iron-1.13 mg-581.92 mg capsule [...] daily 90 tablet 11/01/19 25 026 Active Active Problems Problem Noted Date Diagnosed [...] Comments Blood Pressure 126/80 09/19/2024 9:55 AM TERMITE INSPECTOR Pulse 93 09/19/2024 9:55 AM TERMITE INSPECTOR Temperature - - Respiratory Rate - - Oxygen Saturation 97% 09/19/2024 9:55 AM TERMITE INSPECTOR Inhaled Oxygen Concentration - - Weight 118.8 kg (261 lb 14.5 oz) 2024 10:58 AM TERMITE INSPECTOR Height 165.1 cm (5' 5 ) 10/27/2024 10:5 8 AM TERMITE INSPECTOR Body Mass Index 43.58 10/27/2024 10:58 AM TERMITE INSPECTOR Plan of Treatment Not on file Medical Devices Implanted Type Area Rear Admiral Device Identifier Shelf Expiration Date Model / Serial / Lot Hernia Mesh Abdomen Lumbar Spine Fusion Instrumentation Implanted: 5 (Quantity not on file) Spine Lumbar Procedures Procedure Name Priority Date/Time Associated Diagnosis Comments DIAGNOSTIC MAMMOGRAM LEFT W MIRANDA Schedule Routine, Read Routine (OP Routine) 11/09/2024 12:47 PM TERMITE INSPECTOR Abnormality of left breast on screening mammography SCREENING MAMMOGRAM BILATERAL W MIRANDA Schedule Routine, Read Routine (OP Routine) 10/27/2024 11:28 AM TERMITE INSPECTOR Breast cancer screening by mammogram POCT LIPID PANEL Routine 09/19/2024 11:3 8 AM TERMITE INSPECTOR Need for lipid screening CARDIOLOGY DOCUMENT SCAN 09/15/2024 CARDIOLOGY DOCUMENT SCAN 09/12/2024 CARDIOLOGY DOCUMENT SCAN Routine 09/11/2024 11:17 AM TERMITE INSPECTOR from Last 3 Months Results * Diagnostic Mammogram Left W Miranda (11/09/2024 12:47 PM TERMITE INSPECTOR) Anatomical Region Laterality Modality Breast Left Mammography 11/09/2024 1:04 PM TERMITE INSPECTOR Impressions 11/09/2024 3:19 PM TERMITE INSPECTOR Grouped layering calcification in the upper [...] Diana Jeff M.D. Narrative 11/09/2024 3:19 PM TERMITE INSPECTOR EXAMINATION: LEFT UNILATERAL DIGITAL DIAGNOSTIC MAMMOGRAM [...] Mammogram Bilateral W Miranda (10/27/2024 11:28 AM TERMITE INSPECTOR) Anatomical Region Laterality Modality Breast Bilateral Mammography Narrative 10/30/2024 11:33 AM TERMITE INSPECTOR Mammogram Technique: Bilateral Digital Breast Tomosynthesis, Bilateral C-view 2D Screening mammogram. Views obtained: bilateral craniocaudal and bilateral mediolateral oblique. Computer Aided Detection was performed. Mammogram Findings: The present examination has been compared to prior imaging studies performed at [facility] on 02/24/2021, 07/30/2021, 07/27/2022 and [...] compared to prior imaging studies performed at [facility] on 02/24/2021, 07/30/2021,07/27/2022 and 10/18/2023. [...] * POCT lipid panel (09/19/2024 11:38 AM TERMITE INSPECTOR) Cholesterol, POC 117 mg/dL Comment:GLU = 131 HDL, POC 62 mg/dL Triglycerides, POC 144 mg/dL LDL Cholesterol POC 26 mg/dL Chol/HDL Ratio, POC 0.4 Non-HDL Cholesterol, POC 55 mg/dL Cholesterol Total, POC 117 mg/dL Capillary blood 09/19/2024 1 1:38 AM TERMITE INSPECTOR Result Jarad Henley MD POINT OF [...] * Cardiology Document Scan (09/11/2024 11:17 AM TERMITE INSPECTOR) Anatomical Region Laterality Modality Other Result Jarad Henley MD CV CARDIAC SERVICES PROCEDURES F inal Result from Last 3 Months Insurance [facility] ACCESS CHOICE ANTHEM ACCESS CHOICE Member Subscriber Plan / Payer (Ef fective 2023-Present) Name:Kaylie Beck Member ID:[id number] Relation to Subscriber:Spouse Name:DAMON BECK Subscriber ID:[id number] Date of :1979 (Home) Address: [address] [place] [phone] Payer ID:[id number] (NAIC) Type: ALLIANCE Address: [facility] [address] [place] [address] [address] Relationship Specialty Start Date End Date Gloria Urbina MD [address] [facility] [address] [address] PCP - General Family Practice 09/19/24
--- OUTSIDE RECORDS SUMMARY | 2024-12-04 18:22 | XMS_ITS | Clinical Summary ---
Author Organization [facility] Address [address] [place] [address] Care Team Providers Care Trade Recruiter Name Role Phone Unavailable Primary Care Provider [...] on file Legal Sex Female 12:12 PM WOOL CLEANER Gender Identity Not on file Sexual Orientation [...]
--- OUTSIDE RECORDS SUMMARY | 2024-12-04 18:22 | XMS_ITS | Patient Health Record ---
Author Organization [facility] Address [address] [facility] [address] [place], [place] [id number] Care Team Providers Care Camera Assembler Name Role Phone KYLEE Rahman Unavailable [phone] Answer, Declined Unavailable Unavailable SNOOK, MARIO Unavailable [phone] Allergies Allergen (clinical drug ingredient) Drug/Non Drug Allergy documented on EMR Reaction Allergy Type Onset Date Status Anti-Inflammatory Enzyme Unknown Drug Allergy Active Tape Unknown Allergy Active Reason For Referral No Information Encounters Encounter Location Date Provider Diagnosis [facility] [place] [address] [place], [place] [id number] 06/19/2024 MARIO SNOOK Plantar fascial fibromatosis M72.2 ; Unequal limb length (acquired), 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 [facility] 09/04/[facility]24 Unequal limb length (acquired), unspecified [...] Insured Coverage Start Date Coverage End Date [facility] ([facility]) ATTN CLAIMS [address] [place] [address] [id number] LEOPOLDO BECK Self - patient is the insured
--- OUTSIDE RECORDS SUMMARY | 2024-12-04 18:22 | XMS_ITS | Encounter Summary ---
Author Organization [facility] Address [address] [facility] [place] [address] Care Team Providers Care Search Engine Optimization Consultant Name Role Phone Michael Acharya MD Primary Care Provider [phone] Renetta Vasquez MD Primary Care Provider Un available Encounter Details Date Type Department Care Team (Late st Contact Info) Description 08/12/2018 Lab Requisition [facility] Care DermPath Lab [address] [facility], [place] [phone] Shavonne Anders MD [address] [facility] 3 [place] [address] Social History Tobacco Use Types Packs/Day Years [...] AM CDT) Case Report Dermatopathology Report Case: [id number] Authorizing Provider: Shavonne Anders MD Collected: 08/11/2018 12:00 AM Pathologist: Nell Doty MD Received: 08/12/2018 06:56 AM Specimen: Skin, back 8 10:38 AM CDT DERMATOPATHOLOGY LABORATORY Clinical History R/O cyst, irritated, painful. 10:38 AM [facility] DERMATOPATHOLOGY LABORATORY Gross Description Specimen A: Received is one formalin filled container labeled with the patient's name and designated back. The specimen consists of a [id number] excision. The specimen is serially sectioned and a school admissions representative section is submitted in cassette 1. Jar 1. [facility] Dermatopathology Laboratory performed the technical component only. 10:38 AM [facility] DERMATOPATHOLOGY LABORATORY Embedded Images 10:38 AM [facility] DERMATOPATHOLOGY LABORATORY DISCLAIMER An external and internal positive and negative controls are appropriate for the histochemical, immunohistochemical and immunofluorescence stain(s) in this case (if any), except where stated explicitly. The performance characteristics of the stain(s) cited in this report were developed and its performance characteristic determined by the Dermatopathology Laboratory at [facility]. These tests need not be, and therefore are not, approved by the [place] Food and Drug Administration. The tests are used for clinical purposes. 10:38 AM [facility] DERMATOPATHOLOGY LABORATORY Pathology/Cytolog y TISSUE SPECIMEN FROM SKIN / Unknown 08/11/2018 08/12/2018 6:56 AM CDT Shavonne Anders MD LAB - PATHOLOGY/CYTO LOGY ORDERABLES DERMATOPATHOLOGY LABORATORY [facility] - Department of Dermatology [address] [place] [address], 5th Floor Lab [address] [phone] documented in this encounter Visit Diagnoses Not on filedocumented in this encounter Care Teams Search Engine Optimization Consultant Relationship Specialty Start Date End Date Michael Acharya MD [address] [place] [address] PCP - General 08/03/18 12/28/19 Renetta Vasquez MD [address] [place] [address] PCP - General 12/29/19 documented as of this encounter
--- OUTSIDE RECORDS SUMMARY | 2024-12-04 18:22 | XMS_ITS | Encounter Summary ---
Author Organization [facility] Healthcare Address [address] [place] [address] Care Team Providers Care Synthetic Department Supervisor Name Role Phone Cristina Navarro NP Primary Care Provider + Gloria Urbina MD Primary Care Provider Encounter Details Date Type Department Care Team (Late st Contact Info) Description 09/15/2024 Orders Only [facility] Health Information Management [address] [place] [address] Juan Henley MD [address] [address] Social History Tobacco Use Types [...] on filedocumented in this encounter Care Teams Synthetic Department Supervisor Relationship Specialty Start Date End Date Cristina Navarro NP [address] [facility] [address] [place] [address] PCP - General Nurse Practitioner 12/03/23 09/18/24 Gloria Urbina MD [address] [place] [address] [address] [place] [address] PCP - General Family Practice 09/19/24 documented as of this encounter
--- OUTSIDE RECORDS SUMMARY | 2024-12-04 18:22 | XMS_ITS | Encounter Summary ---
Author Organization [facility] Healthcare Address [address] [place] [address] Care Team Providers Care Door Machine Operator Name Role Phone Michael Acharya MD Primary Care Provider [phone] Sarita Lopez NP Primary Care Provider [phone] Cristina Navarro NP Primary Care Provider + Gloria Urbina MD Primary Care Provider Encounter Details Date Type Department Care Team (Late st Contact Info) Description 08/05/2020 Telephone [facility] [address] [place] [address] Bentley Mehta, Social History Tobacco Use [...] on filedocumented in this encounter Care Teams Door Machine Operator Relationship Specialty Start Date End Date Michael Acharya MD [address] [place] [address] PCP - General 07/26/17 07/19/22 Sarita Lopez NP [address] [place] [address] PCP - General Nurse Practitioner 07/20/22 12/02/23 Cristina Navarro NP [address] [place] [address] [address] [place] [id number] PCP - General Nurse Practitioner 12/03/23 09/18/24 Gloria Urbina MD [address] [place] [address] [address] [place] [address] PCP - General Family Practice 09/19/24 documented as of this encounter
--- OUTSIDE RECORDS SUMMARY | 2024-12-04 18:22 | XMS_ITS ---
Author Organization [facility] Address [address] [place], [place] [id number] Care Team Providers Care Dough Cutting Machine Operator Name Role Phone KYLEE Rahman Unavailable [phone] Answer, Declined Unavailable Unavailable MARIO GREEN Unavailable [phone] REASON FOR VISIT The patient is here to be dispensed and fitted for custom orthotics. She has plantar fascitis and unequal limb length Encounters Encounter Location Date Provider Diagnosis [facility] [address] [place], [place] [id number] 09/04/2024 MARIO GREEN Plantar fascial fibromatosis M72.2 [...] * LEOPOLDO BECK RDOB:1980 (44 yo F)Acc No.[id number]:09/04/2024 Patient: LEOPOLDO LANDAVERDE Provider: Ck Green DPM :1980 A ge:44 Y S ex:Female Date:09/04/2024 Address:[address] [place] [address] [address] [id number] Subjective: * Chief Complaints: * T he [...] rn * Billing Information: * Visit Code: 42539 Office Visit, Est Pt., Level 3. * Procedure Codes: * OL COMMUNITY RELATIONS COORDINATOR Sign off status: Completed true * Provider: Ck Green DPM Date: 11/04/2023 Generated for Eder fleming/Leeanne/Raisa on: 0 12/04/2024 06:22 PM SCHOOL COMMUNITY RELATIONS COORDINATOR History and Physical Notes * Examination [...]
--- OUTSIDE RECORDS SUMMARY | 2024-12-04 18:22 | XMS_ITS | Clinical Summary ---
Author Organization [facility] Address [address] [place] [address] Care Team Providers Care Frame Table Operator Name Role Phone Gloria Urbina MD [...] IN LEFT EYE FOUR TIMES DAILY. Active [id number] t-[id number] al 27 mg iron-1.13 mg-581.92 mg capsule [...] Department Care Team Description 11/09/2024 11:58 AM MYSQL DATABASE ADMINISTRATOR - 11/09/2024 11:59 PM MYSQL DATABASE ADMINISTRATOR Hospital Encounter [facility] - Breast Imaging [address] [place] [address] Floor [address] [place] [address] Abnormality of left breast on screening mammography Discharge Disposition: Discharge to home or self care 11/01/2024 Orders Only [facility] Cardiology [address] [place] [address] Amy Sanchez MA 10/31/2024 Telephone [facility] Cardiology [address] [place] [address] Juan Henley MD Med Refill 10/31/[address] [facility] [address] [place] [address] 8 [place] [phone] Kristina Ngo CMA 10/27/2024 11:30 AM MYSQL DATABASE ADMINISTRATOR Office Visit [facility] [address] [place] [address] Floor 8 [place] [phone] Jessica Odonnell NP At high risk for breast cancer (Primary Dx); Family history of breast cancer; Dense breast tissue 10/27/2024 10:49 AM MYSQL DATABASE ADMINISTRATOR - 10/27/2024 11:59 PM MYSQL DATABASE ADMINISTRATOR Hospital Encounter [facility] - Breast Imaging [facility] Floor 8 [place] [address] Breast cancer screening by mammogram Discharge Disposition: Discharge to home or self care 09/19/2024 9:45 AM MYSQL DATABASE ADMINISTRATOR Office Visit [facility] Cardiology [address] [place] [address] Juan Henley MD 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); Inflammatory arthropathy; Need for lipid screening 09/19/2024 Telephone [facility] Cardiology [address] [place] [address] Juan Henley MD 09/15/2024 Orders Only [facility] Health Information Management [address] [place] [address] Juan Henley MD 09/13/2024 Orders Only [facility] Cardiology [address] [place] [address] Juan Henley MD 09/12/2024 Orders Only [facility] Health Information Management [address] [place] [address] Juan Henley MD from Last 3 Months [...] Comments Blood Pressure 126/80 09/19/2024 9:55 AM MYSQL DATABASE ADMINISTRATOR Pulse 93 09/19/2024 9:55 AM MYSQL DATABASE ADMINISTRATOR Temperature - - Respiratory Rate - - Oxygen Saturation 97% 09/19/2024 9:55 AM MYSQL DATABASE ADMINISTRATOR Inhaled Oxygen Concentration - - Weight 118.8 kg (261 lb 14.5 oz) 2024 10:58 AM MYSQL DATABASE ADMINISTRATOR Height 165.1 cm (5' 5 ) 10/27/2024 10:5 8 AM MYSQL DATABASE ADMINISTRATOR Body Mass Index 43.58 10/27/2024 10:58 AM MYSQL DATABASE ADMINISTRATOR Plan of Treatment Health Maintenance Due Date Last Done Comments Cervical Cancer Screening 1979 Colon Cancer Screening-Colonoscopy 1979 Depression Screening 1979 Hepatitis C Screening 1979 DTaP/Tdap/Td Vaccine (1 - Tdap) 1990 Hepatitis B Screening 1997 Regular Well Visit/Exam 18-64 1997 Covid-19 Vaccine (2 - 2023- season) 2024 11/05/2021 Influenza Vaccine (#1) 2024 3, 06/25/2020, 06/27/2019, Additional history exists Breast Cancer Screening-Mammogram 10/27/2025 10/27/2024, 10/18/2023, 07/27/2022, Additional history exists HPV Vaccines Aged Out No longer eligi ble based on patient's age to complete this topic Pneumococcal vaccine <65 Aged Out No longer eligible based on patient's age to complete this topic Medical Devices Implanted Type Area Powerbuilder Device Identifier Shelf Expiration Date Model / Serial / Lot Hernia Mesh Abdomen Lumbar Spine Fusion Instrumentation Implanted: 5 (Quantity not on file) Spine Lumbar Procedures Procedure Name Priority Date/Time Associated Diagnosis Comments DIAGNOSTIC MAMMOGRAM LEFT W MIRANDA Schedule Routine, Read Routine (OP Routine) 11/09/2024 12:47 PM MYSQL DATABASE ADMINISTRATOR Abnormality of left breast on screening mammography SCREENING MAMMOGRAM BILATERAL W MIRANDA Schedule Routine, Read Routine (OP Routine) 10/27/2024 11:28 AM MYSQL DATABASE ADMINISTRATOR Breast cancer screening by mammogram POCT LIPID PANEL Routine 09/19/2024 11:3 8 AM MYSQL DATABASE ADMINISTRATOR Need for lipid screening CARDIOLOGY DOCUMENT SCAN 09/15/2024 CARDIOLOGY DOCUMENT SCAN 09/12/2024 CARDIOLOGY DOCUMENT SCAN Routine 09/11/2024 11:17 AM MYSQL DATABASE ADMINISTRATOR from Last 3 Months Results * Diagnostic Mammogram Left W Miranda (11/09/2024 12:47 PM MYSQL DATABASE ADMINISTRATOR) Anatomical Region Laterality Modality Breast Left Mammography 11/09/2024 1:04 PM MYSQL DATABASE ADMINISTRATOR Impressions 11/09/2024 3:19 PM MYSQL DATABASE ADMINISTRATOR Grouped layering calcification in the upper central [...] Diana Jeff M.D. Narrative 11/09/2024 3:19 PM MYSQL DATABASE ADMINISTRATOR EXAMINATION: LEFT UNILATERAL DIGITAL DIAGNOSTIC MAMMOGRAM AND [...] signed by: Dinaa Jeff M.D. Jessica Odonnell NP IMG MAMMO PROCEDURES Final Result * Screening Mammogram Bilateral W Miranda (10/27/2024 11:28 AM MYSQL DATABASE ADMINISTRATOR) Anatomical Region Laterality Modality Breast Bilateral Mammography Narrative 10/30/2024 11:33 AM MYSQL DATABASE ADMINISTRATOR Mammogram Technique: Bilateral Digital Breast Tomosynthesis, Bilateral C-view 2D Screening mammogram. Views obtained: bilateral craniocaudal and bilateral mediolateral oblique. Computer Aided Detection was performed. Mammogram Findings: The present examination has been compared to prior imaging studies performed at [facility] on 02/24/2021, 07/30/2021, 07/27/2022 and 10/18/2023. [...] compared to prior imaging studies performed at [facility] on 02/24/2021, 07/30/2021,07/27/2022 and 10/18/2023. The [...] * POCT lipid panel (09/19/2024 11:38 AM MYSQL DATABASE ADMINISTRATOR) Cholesterol, POC 117 mg/dL Comment:GLU = 131 HDL, POC 62 mg/dL Triglycerides, POC 144 mg/dL LDL Cholesterol POC 26 mg/dL Chol/HDL Ratio, POC 0.4 Non-HDL Cholesterol, POC 55 mg/dL Cholesterol Total, POC 117 mg/dL Capillary blood 09/19/2024 1 1:38 AM MYSQL DATABASE ADMINISTRATOR Juan Henley MD POINT OF CARE TEST ORDERABLES Fi nal Result * Cardiology Document Scan (09/15/2024) Anatomical Region Laterality Modality Other Juan Henley MD CV CARDIAC SERVICES PROCEDURES F inal Result * Cardiology Document Scan (09/12/2024) Anatomical Region Laterality Modality Other Result [facility] us Juan Henley MD CV CARDIAC SERVICES PROCEDURES E dited Result - Final * Cardiology Document Scan (09/11/2024 11:17 AM MYSQL DATABASE ADMINISTRATOR) Anatomical Region Laterality Modality Other Juan Henley MD CV CARDIAC SERVICES PROCEDURES F inal Result from Last 3 Months Insurance [employer] ACCESS CHOICE [employer] CHOICE Care Teams Frame Table Operator Relationship Specialty Start Date End Date Gloria Urbina MD [address] [facility] [address] [address] PCP - General Family Practice 09/19/24
--- OUTSIDE RECORDS SUMMARY | 2024-12-04 18:23 | XMS_ITS | Clinical Summary ---
Author Organization [facility] Address [address] [place] [address] Care Team Providers Care Heat Engineering Teacher Name Role Phone None, Provider MD Primary [...] to complete this topic Insurance Care Teams Heat Engineering Teacher Relationship Specialty Start Date End Date None, Provider, MD PCP - General UNKNOWN PHYSICIAN SPECIALTY 04/05/24
--- OUTSIDE RECORDS SUMMARY | 2024-12-04 18:23 | XMS_ITS | Clinical Summary ---
Author Organization [facility] Address [address] [place] [address] Care Team Providers Care Mold Puller Name Role Phone Unavailable Primary Care Provider Unavailabl e Immunizations Immunization Administration Dates Next Due Covid-19, Mrna, Lnp-s, Pf, 30 Mcg/0.3 Ml Dose (P yvette) 11/05/2021 Social History Tobacco Use Types Packs/Day Years Used Date Smoking Tobacco: Never Assessed Comments Unknown Sex and Gender Information Value Date Recorded Sex Assigned at Not on file Legal Sex Female 9:51 PM COP Gender Identity Not on file Sexual Orientation Not on file Plan of Treatment Health Maintenance Due Date Last Done Comments Hepatitis C Virus (HCV) Screening 1980 Mammogram 1980 TdaP Immunization 1979 Hepatitis B Immunization (1 of 3 - 19+ 3-dose series) 1998 Pap Smear 2000 Cervical Cancer Screening (CCS) 2009 HPV/Cotest 2009 Discussion re Starting/Frequency of Mammograms 2019 Colonoscopy 2024 Colorectal Cancer Screening 2024 Influenza Immunization (#1) 06/11/2024/0 01/2022, 06/25/2020, 06/27/2019, Additional history exists SARS-COV-2 Immunization ( season) 2024 11/05/2021, 12/31/2020, 12/10/2020 Respiratory Syncytial [...]
--- OUTSIDE RECORDS SUMMARY | 2024-12-04 18:23 | XMS_ITS ---
Author Organization [facility] Address [address] [place], [place] [id number] Care Team Providers Care Data Management Consultant Name Role Phone KYLEE Rahamn Unavailable [phone] Answer, Declined Unavailable Unavailable MARIO GREEN Unavailable [phone] Allergies Allergen (clinical drug ingredient) Drug/Non Drug [...] Location Date Provider Diagnosis [facility] [address] [place], [place] [phone] 07/31/2024 MARIO GREEN Plantar fascial fibromatosis M72.2 [...] * LEOPOLDO BECK RDOB:1980 (44 yo F)Acc No.[id number]:07/31/2024 Patient: LEOPOLDO LANDAVERDE Provider: Ck Green DPM :1980 A ge:44 Y S ex:Female Date:07/31/2024 Address:[address] [place], [place] [id number] Subjective: * Chief Complaints: * 1 . [...] 1) * Billing Information: * Visit Code: 07649 Office Visit, Est Pt., Level 3. * Procedure Codes: L3020 FT INSRT REMV MOLD LNGTUDNL SUPP EA. Modifiers: RT, GA L3020 FT INSRT REMV MOLD LNGTUDNL SUPP EA. Modifiers: LT, GA * Sign off status: Completed true * Provider: Ck Green DPM Date: Generated for Eder fleming/Leeanne/eTransmitting on: 0 12/04/2024 06:22 PM DOUGH MACHINE OPERATOR History and Physical Notes * HPI (History [...]
--- OUTSIDE RECORDS SUMMARY | 2024-12-04 18:23 | XMS_ITS | Encounter Summary ---
Author Organization [facility] Address [address] [facility] [place] [address] Care Team Providers Care Boiler Blower Name Role Phone Renetta Vasquez MD Primary Care Provider Un available Encounter Details Date Type Department Care Team (Late st Contact Info) Description 09/05/2024 Lab Requisition [facility] - DermPath Lab [address] [facility], [place] [phone] Carla cMdaniels DO [address] [facility] 3 [place] [address] Social History Tobacco Use Types Packs/Day Years [...] Diagnosis Comments DERMATOPATHOLOGY Routine 09/05/2024 8:13 AM BILL DISTRIBUTOR documented in this encounter Results * DERMATOPATHOLOGY (09/05/2024 8:13 AM BILL DISTRIBUTOR) Case Report Dermatopathology Report Case: [id number] Authorizing Provider: Carla Mcdaniels DO Collected: 09/05/2024 08:13 AM Ordering Location: [facility] - Received: 09/05/2024 12:38 PM DermPath Lab Pathologist: Lelo Reid MD Specimen: Skin, left chin 11:11 AM BILL DISTRIBUTOR DERMATOPATHOLOGY LABORATORY Final Diagnosis Specimen A. SKIN, left chin: BENIGN VERRUCOUS KERATOSIS (L82.1) (see microscopic description and comment) 4 11:11 AM [facility] DERMATOPATHOLOGY LABORATORY Clinical History R/O NMSC 4 11:11 AM [facility] DERMATOPATHOLOGY LABORATORY Gross Description Specimen A: Received is one formalin filled container labeled with the patient's name and designated left chin. The specimen consists of a shave biopsy measuring 3x3x1 mm. Jar 0. 4 11:11 AM [facility] DERMATOPATHOLOGY LABORATORY Microscopic Description Specimen A. SKIN, left chin: Sections show hyperkeratosis, papillomatosis, hypergranulosis, and acanthosis. These histological findings can be seen in a verruca vulgaris or a seborrheic keratosis. Additional deeper sections were obtained and reviewed. COMMENT: Given the superficial nature of the biopsy specimen, a deeper dermal process cannot be excluded. 11:11 AM [facility] DERMATOPATHOLOGY LABORATORY Disclaimer An external and internal positive and negative controls are appropriate for the histochemical, immunohistochemical and immunofluorescence stain(s) in this case (if any), except where stated explicitly. The performance characteristics of the stain(s) cited in this report were developed and its performance characteristic determined by the Dermatopathology Laboratory at [facility], directed by Dr. Kelly Crane. These tests need not be, and therefore are not, approved by the [place] Food and Drug Administration. The tests are used for clinical purposes. Billing Codes Specimen Charges Stain Charges 92378 1 4 11:11 AM [facility] DERMATOPATHOLOGY LABORATORY Embedded Images 4 11:11 AM [facility] DERMATOPATHOLOGY LABORATORY Pathology/Cytolo gy TISSUE SPECIMEN FROM SKIN / Unknown 09/05/2024 8:13 AM BILL DISTRIBUTOR 09/05/2024 12:38 PM BILL DISTRIBUTOR Carla Mcdaniels DO LAB - PATHOLOGY/C YTOLOGY ORDERABLES DERMATOPATHOLOGY LABORATORY [facility] - Department of Dermatology [address] [phone] documented in this encounter Visit Diagnoses Not on filedocumented in this encounter Care Teams Boiler Blower Relationship Specialty Start Date End Date Renetta Vasquez MD [address] [address] PCP - General 12/29/19 documented as of this encounter
--- OUTSIDE RECORDS SUMMARY | 2024-12-04 18:23 | XMS_ITS | Encounter Summary ---
Author Organization [facility] Address [address] [place] [address] Care Team Providers Care Pasting Machine Operator Name Role Phone Renetta Vasquez MD Primary Care Provider Un available Encounter Details Date Type Department Care Team (Late st Contact Info) Description 08/12/2023 Lab Requisition [facility] - DermPath Lab [address] [facility] [place] [phone] Shavonne Anders MD [address] [facility] 3 DEPT [place] [address] Social History Tobacco Use Types Packs/Day Years [...] PM CDT) Case Report Dermatopathology Report Case: [id number] Authorizing Provider: Shavonne Anders MD Collected: 08/12/2023 01:55 PM Ordering Location: [facility] DermPath Lab Received: 08/13/2023 01:19 PM Pathologist: Alexia Rogers MD Specimen: Skin, chin 3:23 PM DIRECTOR OF FINANCE DERMATOPATHOLOGY LABORATORY Final Diagnosis Specimen A. 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 The specimen consists of a shave biopsy measuring 5x3x1 mm. Jar 0. 3:23 PM [facility] DERMATOPATHOLOGY LABORATORY Microscopic Description Specimen A. [...] larger lesion, these findings may not be instruments sales representative of the entire lesion. Clinicopathologic correlation is recommended. 3 3:23 PM [facility] DERMATOPATHOLOGY LABORATORY Disclaimer An external and internal positive and negative controls are appropriate for the histochemical, immunohistochemical and immunofluorescence stain(s) in this case (if any), except where stated explicitly. The performance characteristics of the stain(s) cited in this report were developed and its performance characteristic determined by the Dermatopathology Laboratory at [facility], directed by Dr. Kelly Crane. These tests need not be, and therefore are not, approved by the [place] Food and Drug Administration. The tests are used for clinical purposes. Billing Codes Specimen Charges Stain Charges 28086 1 3 3:23 PM [facility] DERMATOPATHOLOGY LABORATORY Embedded Images 3 3:23 PM [facility] DERMATOPATHOLOGY LABORATORY Pathology/Cytolo gy TISSUE SPECIMEN FROM SKIN / Unknown 08/12/2023 1:55 PM CDT 08/13/2023 1:19 PM CDT Shavonne Anders MD LAB - PATHOLOGY/CYTO LOGY ORDERABLES DERMATOPATHOLOGY LABORATORY [facility] - Department of Dermatology [facility] [address] [facility], 3rd Floor [address] [phone] documented in this encounter Visit Diagnoses Not on filedocumented in this encounter Care Teams Pasting Machine Operator Relationship Specialty Start Date End Date Renetta Vasquez MD [address] [id number] PCP - General 12/29/19 documented as of this encounter
--- OUTSIDE RECORDS SUMMARY | 2024-12-04 18:23 | XMS_ITS ---
Author Organization [facility] Address [address] [place], [place] [address] Care Team Providers Care Tax Assistant Name Role Phone KYLEE Rahman Unavailable [phone] Answer, Declined Unavailable Unavailable SNOOK, MARIO Unavailable [phone] REASON FOR VISIT Plantar fasciitis fu Encounters Encounter Location Date Provider Diagnosis [facility] [place] [address] [place], [place] [id number] 07/03/2024 MARIO GREEN Plan Of Treatment No Information Progress Notes * KIRAN LEOPOLDO RDOB:1980 (44 yo F)Acc No.[id number]:07/03/2024 Patient: LEOPOLDO LANDAVERDE Provider: Ck Green DPM :1980 A ge:44 Y S ex:Female Date:07/03/2024 Address:[address] [facility] Subjective: * Chief Complaints: * 1 . Plantar fasciitis fu. * Medical History: Objective: * Vitals: Assessment: Plan: * Treatment: * Billing Information: * Visit Code: * Procedure Codes: * Electronic signature of MARIO GREEN DPM on 12/04/2024 at 06:22 PM LABORATORY TECH Sign off status: Pending * Provider: Ck Green DPM Date: 0 07/03/2024 Generated for Printi ng/Faxing/eTransmitting on: 0 12/04/2024 06:22 PM LABORATORY TECH
--- OUTSIDE RECORDS SUMMARY | 2024-12-04 18:23 | XMS_ITS | Referral Summary ---
Author Organization [facility] Address [address] [place] [address] Care Team Providers Care Automatic Blocker Name Role Phone Renetta Vasquez MD Primary Care Provider Un available Source Comments [facility] [employer],non-owned Affiliates and Associated Physician Practices is amultiple site organization consisting of ambulatory clinics and hospital sitesin [place], [place], [place] and [place]. This disclosure is being madepursuant to the Care Everywhere program and may not contain all information available regarding this patient. 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) Case Report Dermatopathology Report Case: [id number] Authorizing Provider: Carla Mcdaniels DO Collected: 09/05/2024 08:13 AM Ordering Location: [facility] - Received: 09/05/2024 12:38 PM DermPath Lab Pathologist: Lelo Reid MD Specimen: Skin, left chin 11:[address] [facility] DERMATOPATHOLOGY LABORATORY Final Diagnosis Specimen A. SKIN, left chin: BENIGN VERRUCOUS KERATOSIS (L82.1) (see microscopic description and comment) 11:[address] [facility] DERMATOPATHOLOGY LABORATORY Clinical History R/O NMSC 11:[address] [facility] DERMATOPATHOLOGY LABORATORY Gross Description Specimen A: Received is one formalin filled container labeled with the patient's name and designated left chin. The specimen consists of a shave biopsy measuring 3x3x1 mm. Jar 0. 11:[address] [facility] DERMATOPATHOLOGY LABORATORY Microscopic Description Specimen A. SKIN, left chin: Sections show hyperkeratosis, papillomatosis, hypergranulosis, and acanthosis. These histological findings can be seen in a verruca vulgaris or a seborrheic keratosis. Additional deeper sections were obtained and reviewed. COMMENT: Given the superficial nature of the biopsy specimen, a deeper dermal process cannot be excluded. 11:[address] [facility] DERMATOPATHOLOGY LABORATORY Disclaimer An external and internal positive and negative controls are appropriate for the histochemical, immunohistochemical and immunofluorescence stain(s) in this case (if any), except where stated explicitly. The performance characteristics of the stain(s) cited in this report were developed and its performance characteristic determined by the Dermatopathology Laboratory at [facility], directed by Dr. Kelly Crane. These tests need not be, and therefore are not, approved by the [place] Food and Drug Administration. The tests are used for clinical purposes. Billing Codes Specimen Charges Stain Charges 45903 1 4 11:11 AM STATION MECHANIC HELPER DERMATOPATHOLOGY LABORATORY Embedded Images 4 11:11 AM STATION MECHANIC HELPER DERMATOPATHOLOGY LABORATORY Pathology/Cytolo gy TISSUE SPECIMEN FROM SKIN / Unknown 09/05/2024 8:13 AM STATION MECHANIC HELPER 09/05/2024 12:38 PM STATION MECHANIC HELPER Carla Mcdaniels DO LAB - PATHOLOGY/C YTOLOGY ORDERABLES DERMATOPATHOLOGY LABORATORY [facility] - Department of Dermatology [facility] Medicine [address] [place] [address], [address] [phone] * ENDOSCOPY, COLON, DIAGNOSTIC (04/03/2019 11:38 AM [...] bowel preparation was evaluated using the BBPS ([place] Bowel Preparation Scale) with scores of: Right [...] previously scheduled. Procedure Code(s): --- Professional --- 90710, Colonoscopy, flexible; with biopsy, single or multiple --- Technical --- 98958, Colonoscopy, flexible; with biopsy, single or multiple Diagnosis Code(s): --- Professional --- K52.9, Noninfective gastroenteritis and colitis, unspecified --- Technical --- K52.9, Noninfective gastroenteritis and colitis, unspecified CPT copyright 2017 [employer]. All rights reserved. The codes documented in this report are preliminary and upon label coder review may be revised to meet current compliance requirements. Adilene Templeton MD Adilene Templeton MD 04/03/2019 12:54:48 PM Number of Addenda: 0 Note Initiated On: 04/03/2019 11:38 AM [facility] END[facility] 04/03/2019 11:3 8 AM CDT Adilene Templeton MD GI PROCEDURE DAMIEN BOOTH [facility] Organization Address City/State/ZIP Co de Phone Number [facility] from Last 3 Months or Most Recently Relevant to Health Maintenance Care Teams Automatic Blocker Relationship Specialty Start Date End Date Renetta Vasquez MD [address] [facility] [place] [address] PCP - General 12/29/19
--- OUTSIDE RECORDS SUMMARY | 2024-12-04 18:23 | XMS_ITS | Clinical Summary ---
Author Organization [facility] Address [address] [place] [address] Care Team Providers Care Tree Loader Meat Name Role Phone Renetta Vasquez MD Primary Care Provider Un available Source Comments [facility],non-owned Affiliates and Associated Physician Practices is amultiple site organization consisting of ambulatory clinics and hospital sitesin [place], [place], [place] and [place]. This disclosure is being madepursuant to the Care Everywhere program and may not contain all information available regarding this patient. Last updated 18.[facility] Allergies Active Allergy Reactions Criticality Noted Date [...] Acetaminophen (TYLENOL PO) Active Cholecalciferol (VITAMIN D3) 49620 units capsule 03/09/2019 Active sertraline (ZOLOFT) 50 [...] Department Care Team Description 09/05/2024 Lab Requisition [facility] - DermPath Lab [address] [facility] [place] [address] Carla Mcdaniels DO from Last 3 Months [...] 36.6 C (97.8 F) 09/19/2018 1:50 PM BIT BENDER Respiratory Rate 21 04/03/2019 1:10 PM CDT [...] Diagnosis Comments DERMATOPATHOLOGY Routine 09/05/2024 8:13 AM BIT BENDER ENDOSCOPY, COLON, DIAGNOSTIC Routine 04/03/2019 11:38 AM CDT Chronic diarrhea from Last 3 Months or Most Recently Relevant to Health Maintenance Results * DERMATOPATHOLOGY (09/05/2024 8:13 AM [facility]) Case Report Dermatopathology Report Case: [id number] Authorizing Provider: Carla Mcdaniels DO Collected: 09/05/2024 08:13 AM Ordering Location: [facility] - Received: 09/05/2024 12:38 PM DermPath Lab Pathologist: Lelo Reid MD Specimen: Skin, left chin 11:11 AM [facility] DERMATOPATHOLOGY [...] characteristic determined by the Dermatopathology Laboratory at [facility], directed by Dr. Kelly Crane. These tests need not be, and therefore are not, approved by the [place] Food and Drug Administration. The tests are used for clinical purposes. Billing Codes Specimen Charges Stain Charges 71180 1 11:11 AM [facility] DERMATOPATHOLOGY LABORATORY Embedded Images 11/27/202 4 11:11 AM BIT BENDER DERMATOPATHOLOGY LABORATORY Pathology/Cytolo gy TISSUE SPECIMEN FROM SKIN / Unknown 09/05/2024 8:13 AM BIT BENDER 09/05/2024 12:38 PM BIT BENDER Carla Beard Arslan [facility] LAB - PATHOLOGY/C YTOLOGY ORDERABLES DERMATOPATHOLOGY LABORATORY [facility] - Department of Dermatology [facility] Medicine [address] [place] [address] [phone] * ENDOSCOPY, COLON, DIAGNOSTIC (04/03/2019 11:38 AM [...] bowel preparation was evaluated using the BBPS ([place] Bowel Preparation Scale) with scores of: Right [...] previously scheduled. Procedure Code(s): --- Professional --- 29464, Colonoscopy, flexible; with biopsy, single or multiple --- Technical --- 85601, Colonoscopy, flexible; with biopsy, single or multiple Diagnosis Code(s): --- Professional --- K52.9, Noninfective gastroenteritis and colitis, unspecified --- Technical --- K52.9, Noninfective gastroenteritis and colitis, unspecified CPT copyright 2017 [employer]. All rights reserved. The codes documented in this report are preliminary and upon assistant program director review may be revised to meet current compliance requirements. Adilene Templeton MD Adilene Templeton MD 04/03/2019 12:54:48 PM Number of Addenda: 0 Note Initiated On: 04/03/2019 11:38 AM [facility] 04/03/2019 11:3 8 AM CDT Adilene Templeton MD [facility] Organization Address City/State/ZIP Co de Phone Number [facility] from Last 3 Months or Most Recently Relevant to Health Maintenance Care Teams Tree Loader Meat Relationship Specialty Start Date End Date Renetta Vasquez MD [address] [address] PCP - General 12/29/19
--- OUTSIDE RECORDS SUMMARY | 2024-12-04 18:23 | XMS_ITS | Patient Health Summary ---
Author Organization [facility] mobli Address [address] [place] [address] Care Team Providers Care Inspector Floor Sub Assembly Name Role Phone Renetta Vasquez MD Primary Care Provider Un available Note from [facility] [place],non-owned Affiliates and Associated Physician Practices is amultiple site organization consisting of ambulatory clinics and hospital sitesin [place], [place], [place] and [place]. This disclosure is being madepursuant to the Care Everywhere program and may not contain all information available regarding this patient. Last updated 18.[facility] Allergies * Adhesive Sensitivity(Rash) -Medium Criticality * [...] Acetaminophen (TYLENOL PO) * Cholecalciferol (VITAMIN D3) 08672 units capsule(Started 03/09/2019) * sertraline (ZOLOFT) 50 [...] 36.6 C (97.8 F) 09/19/2018 1:50 PM CHILD AND YOUTH PROGRAM ASSISTANT Respiratory Rate 21 04/03/2019 1:10 PM CDT [...] URINE(Performed 09/19/2018) Performed for Kidney stones * UT INSERT NON-INDWELLING BLADDER(Performed 09/19/2018) Performed for Renal stones, Dysuria, Stress incontinence in female * URINALYSIS - POINT OF CARE(Performed 09/19/2018) Performed for Renal stones, Dysuria, Hematuria, unspecified type * IMAGING/RADIOLOGY/XRAY RESULTS ORDER(Performed 09/05/2018) * IMAGING/RADIOLOGY/XRAY RESULTS ORDER(Performed 08/22/2018) * UT SONO EXAM, TRANSVAGINAL(Performed 08/19/2018) Performed for Chronic pelvic pain in female * DERMATOPATH TECHNICAL REPORT(Performed 08/11/2018) * DERMATOPATHOLOGY(Performed 08/19/2016) Results * DERMATOPATHOLOGY (09/05/2024 8:13 AM [facility]) Only the most recent of3 resultswithin the time period is included. Case Report Dermatopathology Report Case: [id number] Authorizing Provider: Carla Mcdaniels DO Collected: 09/05/2024 08:13 AM Ordering Location: [facility] - Received: 09/05/2024 12:38 PM DermPath Lab Pathologist: Lelo Reid MD Specimen: Skin, left chin 4 11:11 AM [facility] Final Diagnosis Specimen A. SKIN, left chin: BENIGN VERRUCOUS KERATOSIS (L82.1) (see microscopic description and comment) 4 11:11 AM [facility] Clinical History R/O NMSC 4 11:11 AM [facility] Gross Description Specimen A: Received is one formalin filled container labeled with the patient's name and designated left chin. The specimen consists of a shave biopsy measuring 3x3x1 mm. Jar 0. 4 11:11 AM [facility] Microscopic Description Specimen A. SKIN, left chin: Sections show hyperkeratosis, papillomatosis, hypergranulosis, and acanthosis. These histological findings can be seen in a verruca vulgaris or a seborrheic keratosis. Additional deeper sections were obtained and reviewed. COMMENT: Given the superficial nature of the biopsy specimen, a deeper dermal process cannot be excluded. 4 11:11 AM [facility] Disclaimer An external and internal positive and negative controls are appropriate for the histochemical, immunohistochemical and immunofluorescence stain(s) in this case (if any), except where stated explicitly. The performance characteristics of the stain(s) cited in this report were developed and its performance characteristic determined by the Dermatopathology Laboratory at [facility], directed by Dr. Kelly Crane. These tests need not be, and therefore are not, approved by the [place] Food and Drug Administration. The tests are used for clinical purposes. Billing Codes Specimen Charges Stain Charges 30992 1 4 11:11 AM [facility] Embedded Images 4 11:11 AM [facility] Pathology/Cytolo gy TISSUE SPECIMEN FROM SKIN / Unknown 09/05/2024 8:13 AM CHILD AND YOUTH PROGRAM ASSISTANT 09/05/2024 12:38 PM CHILD AND YOUTH PROGRAM ASSISTANT Carla Mcdaniels DO LAB - PATHOLOGY/C YTOLOGY ORDERABLES DERMATOPATHOLOGY LABORATORY [facility] - Department of Dermatology [address], [address] [phone] * (ABNORMAL) C-REACTIVE PROTEIN SENSITIVE (12/20/2019 1:30 [...] with infection and inflammation. Test Performed at: [facility] [address] [place] [address] JOAN MA DO,MPH 12/20/2019 1:30 PM CDT 12/20/2019 1:31 PM CDT Adilene Templeton MD LAB - CHEMISTRY O RDERABLES [facility] [address] [place] [address] * GROSS + MICRO EXAM (STL) (04/03/2019 12:25 PM CDT) Case Report Surgical Pathology Report Case: [id number] Authorizing Provider: Adilene Templeton MD Collected: 04/03/2019 12:25 PM Ordering Location: [facility] Received: 04/03/2019 01:23 PM Pathologist: Meredith Payan MD Specimens: A) - Duodenal Biopsy B) - Colon Biopsy, random 04/04/2019 4:04 PM CDT [facility] Final Diagnosis A. Duodenum, biopsy: - No significant histopathologic abnormality B. Large intestine, random colon, biopsy: - Benign fragments of colonic mucosa with prominent lymphoid aggregates. - No evidence of active colitis - No evidence of microscopic colitis Amber 04/04/2019 4:04 PM CDT [facility] Clinical History The patient is a 38-year-old woman with chronic diarrhea. 04/04/2019 4:04 PM CDT [facility] Gross Description A. Received in [...] cassette B1. REHAN/radha 04/04/2019 4:04 PM CDT [facility] Microscopic Description Microscopic examination substantiates the final diagnosis. Amber 04/04/2019 4:04 PM CDT [facility] Disclaimer All histochemical and/or immunohistochemical [...] high complexity testing. 04/04/2019 4:04 PM CDT [facility] Embedded Images 04/04/2019 4:04 PM CDT [facility] Pathology/Cytology DUODENAL BIOPSY SPECIMEN / Unknown 04/03/2019 12:25 PM CDT 04/03/2019 1:23 PM CDT Miscellaneous samples (specimen) COLONIC BIOPSY SPECIMEN / Unknown 04/03/2019 12:44 PM CDT 04/03/2019 1:23 PM CDT Adilene Templeton MD LAB - PATHOLOGY/C YTOLOGY ORDERABLES [facility] [address] [place] [address] * EGD (04/03/2019 11:40 AM CDT) Report [...] pathology results. Procedure Code(s): --- Professional --- 36123, Esophagogastroduode noscopy, flexible, transoral; with biopsy, single or multiple --- Technical --- 74420, Esophagogastroduode noscopy, flexible, transoral; with biopsy, single or multiple Diagnosis Code(s): --- Professional --- R19.7, Diarrhea, unspecified --- Technical --- R19.7, Diarrhea, unspecified CPT copyright 2017 [employer]. All rights reserved. The codes documented in this report are preliminary and upon production technician review may be revised to meet current compliance requirements. Adilene Templeton MD ____ Adilene Templeton MD 04/03/2019 12:19:40 PM Number of Addenda: 0 Note Initiated On: 04/03/2019 11:40 AM [facility] 04/03/2019 11:4 0 AM CDT Adilene Templeton MD GI PROCEDURE ORDE EMMY [facility] * ENDOSCOPY, COLON, DIAGNOSTIC (04/03/2019 11:38 [...] bowel preparation was evaluated using the BBPS ([place] Bowel Preparation Scale) with scores of: Right [...] previously scheduled. Procedure Code(s): --- Professional --- 56368, Colonoscopy, flexible; with biopsy, single or multiple --- Technical --- 95460, Colonoscopy, flexible; with biopsy, single or multiple Diagnosis Code(s): --- Professional --- K52.9, Noninfective gastroenteritis and colitis, unspecified --- Technical --- K52.9, Noninfective gastroenteritis and colitis, unspecified CPT copyright 2017 [employer]. All rights reserved. The codes documented in this report are preliminary and upon production technician review may be revised to meet current compliance requirements. Adilene Templeton MD Adilene Templeton MD 04/03/2019 12:54:48 PM Number of Addenda: 0 Note Initiated On: 04/03/2019 11:38 AM [facility] 04/03/2019 11:3 8 AM CDT Adilene Templeton MD GI PROCEDURE ORDCk BOOTH Performing Organization Address City/[facility]/ZIP Co de Phone Number [facility] * HCG URINE QUALITATIVE - POCT (IP) INTERFACED (04/03/2019 11:27 AM CDT) HCG Qual Urine Negative Negative 04/03/2019 11:28 AM CDT [facility] Urine URINE / Unknown 04/03/2019 1 1:27 AM CDT 04/03/2019 11:28 AM CDT Adilene Templeton MD LAB - POINT OF CA RE ORDERABLES Performing Organization Address [facility] Co de Phone Number [facility] [address] [place] [address] * HCG URINE QUAL POCT NOTIFICATION (04/03/2019 11:01 AM CDT) Comment Notification Label Only - See Separate Report 04/03/2019 12:30 PM CDT [facility] Urine URINE / Unknown 04/03/2019 1 1:01 AM CDT 04/03/2019 11:01 AM CDT Adilene Templeton MD LAB - URINALYSIS ORDERABLES Performing Organization Address [facility] Co de Phone Number [facility] [address] [place] [address] * CULTURE STOOL PANEL (02/14/2019 8:37 AM CDT) [facility] Comment: SHIGA TOXINS, EIA W/RFL TO E.COLI O157 CULTURE MICRO NUMBER: [id number] TEST STATUS: FINAL SPECIMEN SOURCE: STOOL SPECIMEN QUALITY: ADEQUATE RESULT: Not Detected Culture [facility] Comment: CAMPYLOBACTER, CULTURE MICRO NUMBER: [id number] TEST STATUS: FINAL SPECIMEN SOURCE: STOOL SPECIMEN QUALITY: ADEQUATE RESULT: No enteric Campylobacter isolated Culture [facility] Comment: SALMONELLA AND SHIGELLA, CULTURE MICRO NUMBER: [id number] TEST STATUS: FINAL SPECIMEN SOURCE: STOOL SPECIMEN QUALITY: ADEQUATE RESULT: No Salmonella or Shigella isolated REPORT COMMENT: SPLIT 02/13/2019 FROM [id number] Test Performed at: [email or web address] [address] POOJA MATTHEWS MD Stool STOOL SPECIMEN / Unknown 02/14/2019 8:37 AM CDT 02/14/2019 8:38 AM CDT Adilene Templeton MD LAB - MICROBIOLOG Y ORDERABLES Performing Organization Address [facility] Co de Phone Number [address] [address] * C DIFFICILE CX W/RFLX TO TOXIN B PCR (02/13/2019 2:59 PM CDT) C difficile Culture NOT ISOLATED [facility] Comment: REFERENCE RANGE: NOT ISOLATED For additional information, please refer to http://education.[employer]/faq/TDY297 (This link is being provided for informational/ educational purposes only.) REPORT COMMENT: FASTING:NO COLLECTION KIT GIVEN TO PATIENT. PATIENT ADVISED TO RETURN. Test Performed at: [email or web address] [address] [place] [address] Yoav YU Microbiology STOOL SPECIMEN / Unknown 02/13/2019 2:59 PM CDT 02/14/2019 2:45 AM CDT Adilene Templeton MD LAB - MICROBIOLOG Y ORDERABLES Performing Organization Address [facility] de Phone Number [address] [address] * CALPROTECTIN FECAL (02/13/2019 2:59 PM CDT) [...] suggested for borderline values. Test Performed at: [facility] [facility] [address] [place] [address] CHAD PORTILLO MD,PHD,FRANK 02/13/2019 2:59 PM CDT 02/14/2019 2:45 AM CDT Adilene Templeton MD LAB - BODY FLUID ORDERABLES Performing Organization Address [facility] [place] [address] * PH FECES (02/13/2019 2:59 PM CDT) pH Feces 7.01 5.92 - 8.00 pH units [facility] Comment: Test Performed at: [facility] [address] [address] PRISCILLA ELY MD,PHD Stool STOOL SPECIMEN / Unknown 02/13/2019 2:59 PM CDT 02/14/2019 2:45 AM CDT Adilene Templeton MD LAB - BODY FLUID ORDERABLES Performing Organization Address [facility] [place] [address] * PANCREATIC ELASTASE FECES (02/13/2019 2:59 PM [...] PATIENT ADVISED TO RETURN. Test Performed at: [facility] [facility] [address] [place] [address] CHAD PORTILLO MD,PHD,FRANK Stool STOOL SPECIMEN / Unknown 02/13/2019 2:59 PM CDT 02/14/2019 1:59 AM CDT Adilene Templeton MD LAB - BODY FLUID ORDERABLES Performing Organization Address [facility] de Phone Number [address] [address] * IRON + TIBC + FERRITIN (02/10/2019 12:55 PM CDT) Iron 63 40 - 190 mcg/dL [facility] TIBC 329 250 - 450 mcg/dL (calc) [facility] % Saturation 19 11 - 50 % (calc) [facility] Ferritin 108 10 - 154 ng/mL [facility] Comment: Test Performed at: [facility] [address] [place] [address] JOAN MA DO,MPH Blood BLOOD SPECIMEN / Unknown 02/10/2019 12:55 PM CDT 02/10/2019 1:06 PM CDT Adilene Templeton MD LAB - CHEMISTRY O RDERABLES Performing Organization Address [facility] de Phone Number [place] [facility] [phone] [place] [address] * HLA TYPING CELIAC DISEASE (02/10/2019 12:55 PM CDT) Pathologist [facility] Interpretation see note [facility] Comment: The patient does not have the HLA-DQ variants associated with celiac disease. More than 97% of celiac patients carry either HLA-DQ2(DQA1*05/DQB1*02) or HLA-DQ8(DQA1*03/DQB1*0302) or both. Genetic counseling as needed. HLA-DQ2 Negative [facility] HLA-DQB Negative [facility] HLA-DQA1 01 [facility] HLA-DQA1 01 [facility] HLA-DQB1 0602 [facility] HLA-DQB1 0603 [facility] Results Reviewed By see note [facility] Comment: Sesar Palacio, Ph.D.,[facility] [place], Molecular Genetics Typing performed by PCR and hybridization with sequence specific oligonucleotide probes (SSO) using the FDA-cleared LABType(R) SSO Kit. Test Performed at: [email or web address]/[address] PRISCILLA ELY MD,PHD Blood BLOOD SPECIMEN / Unknown 02/10/2019 12:55 PM CDT 02/10/2019 1:06 PM CDT Adilene Templeton MD LAB - SEROLOGY OR DERABLES Performing Organization Address [facility] Co de Phone Number [address] [address] * TISSUE TRANSGLUTAMINASE AB IGA (02/10/2019 12:55 PM CDT) Pathologist [facility] TTG Antibody IgA 1 <4 U/mL [facility] Comment: Value Interpretation <4 U/mL: No Antibody Detected >or=4 U/mL: Antibody Detected Test Performed at: [facility] [address] [place] [address] PRISCILLA ELY MD,PHD Blood BLOOD SPECIMEN / Unknown 02/10/2019 12:55 PM CDT 02/10/2019 1:06 PM CDT Adilene Templeton MD LAB - SEROLOGY OR DERABLES Performing Organization Address [facility] Phone Number [address] [address] * (ABNORMAL) VITAMIN D 1,25 DIHYDROXY (02/10/2019 12:55 PM CDT) Pathologist [facility] Vitamin D Total 79(H) 18 [...] analytical performance characteristics have been determined by [facility]. It has not been cleared or approved by the US Food and Drug Administration. This assay has been validated pursuant to the CLIA regulations and is used for clinical purposes. REPORT COMMENT: FASTING:NO COLLECTION KIT GIVEN TO PATIENT. PATIENT ADVISED TO RETURN. Test Performed at: [facility] [address] [place] [address] AZEEM ANDRE MD,PHD Blood BLOOD SPECIMEN / Unknown 02/10/2019 12:55 PM CDT 02/10/2019 1:06 PM CDT Adilene Templeton MD LAB - CHEMISTRY O RDERABLES Performing Organization Address [facility] Co de Phone Number [facility] [address] [place] [address] * ERYTHROCYTE SEDIMENTATION RATE (02/10/2019 12:55 PM CDT) Pathologist [facility] Erythrocyte Sedimentation Rate Westergren 2 < OR = 20 mm/h [facility] Comment: Test Performed at: [facility] [address] [place] [address] JOAN MA DO,MPH 02/10/2019 12:5 5 PM CDT 02/10/2019 1:06 PM CDT Adilene Templeton MD LAB - HEMATOLOGY ORDERABLES Performing Organization Address [facility] de Phone Number [facility] [address] [place] [address] * CBC WITH DIFFERENTIAL (02/10/2019 12:55 PM CDT) Pathologist [facility] White Blood Cell Count 5.8 [...] 0.3 % [facility] Comment: Test Performed at: [facility] [place] [address] JOAN MA DO,MPH Blood BLOOD SPECIMEN / Unknown 02/10/2019 12:55 PM CDT 02/10/2019 1:06 PM CDT Adilene Templeton MD LAB - HEMATOLOGY ORDERABLES [facility] [address] [place] [address] * COMPREHENSIVE METABOLIC PANEL (02/10/2019 12:55 PM [...] 29 U/L [facility] Comment: Test Performed at: [facility] [place] [address] JOAN MA DO,MPH Blood BLOOD SPECIMEN / Unknown 02/10/2019 12:55 PM CDT 02/10/2019 1:06 PM CDT Adilene Templeton MD LAB - CHEMISTRY O RDERAAGUILAR Performing Organization Address [facility] Co de Phone Number [facility] [id number] [place] [address] * VITAMIN B12 (02/10/2019 12:55 PM CDT) Pathologist [facility] Vitamin B12 521 200 - 1100 pg/mL [facility] Comment: Test Performed at: [facility] [address] [place] [address] JOAN MA DO,MPH Blood BLOOD SPECIMEN / Unknown 02/10/2019 12:55 PM CDT 02/10/2019 1:06 PM CDT Adilene Templeton MD LAB - CHEMISTRY O CHANDRIKA Performing Organization Address [facility] [place] [address] * TSH (02/10/2019 12:55 PM CDT) Pathologist [facility] TSH 1.52 mIU/L [facility] Comment: Reference Range > or = 20 Years 0.40-4.50 Ranges First trimester 0.26-2.66 Second trimester 0.55-2.73 Third trimester 0.43-2.91 Test Performed at: [facility] [address] [employer] [address] [place] [address] JOAN MA DO,MPH Blood BLOOD SPECIMEN / Unknown 02/10/2019 12:55 PM CDT 02/10/2019 1:06 PM CDT Adilene Templeton MD LAB - CHEMISTRY O RDERABLES Performing Organization Address [facility] [place] [address] * URINALYSIS REFLEX TO MICROSCOPIC NO CULTURE (09/20/2018 9:00 PM CHILD AND YOUTH PROGRAM ASSISTANT) Pathologist [facility] Color UA YELLOW YELLOW [facility] Appearance CLEAR CLEAR [facility] Specific [place] UA 1.018 1.001 - 1.035 [facility] pH UA 7.0 5.0 - 8.0 [facility] Glucose UA NEGATIVE NEGATIVE [facility] Bilirubin UA NEGATIVE NEGATIVE [facility] Ketone UA NEGATIVE NEGATIVE [facility] Blood UA NEGATIVE NEGATIVE [facility] Protein UA NEGATIVE NEGATIVE [facility] Nitrite UA NEGATIVE NEGATIVE [facility] Leukocyte UA NEGATIVE NEGATIVE [facility] Comment: Test Performed at: [facility] [address] [place] [address] JOAN MA DO,MPH 09/20/2018 2:3 3 AM CHILD AND YOUTH PROGRAM ASSISTANT Hannah Juan Pablo [facility] LAB - URI NALYSIS ORDERABLES Performing Organization Address [facility] de Phone Number [address] [address] * CULTURE URINE (09/20/2018 9:00 PM CHILD AND YOUTH PROGRAM ASSISTANT) Only the most recent of3 resultswithin the time period is included. Culture [facility] Comment: CULTURE, URINE, ROUTINE MICRO NUMBER: [id number] TEST STATUS: FINAL SPECIMEN SOURCE: URINE,CATH STRAIGHT SPECIMEN QUALITY: ADEQUATE RESULT: No Growth NO COLLECTION DATE RECEIVED. WE HAVE USED THE DATE THE SPECIMEN WAS RECEIVED BY THIS LABORATORY THE COLLECTION DATE. IF THIS IS INCORRECT, PLEASE CONTACT CLIENT SERVICES. PHONE NUMBER: [phone] Test Performed at: [email or web address] [address] POOJA MATTHEWS MD Urine URINE SPECIMEN OBTAINED BY SINGLE CATHETERIZATION OF URINARY BLADDER / Unknown 09/20/2018 2:33 AM CHILD AND YOUTH PROGRAM ASSISTANT Hannah Juan Pablo Princess[facility]ber[facility] ROBIOLOGY ORDERABLES Performing Organization Address [facility] de Phone Number [address] [address] * CHLAMYDIA + GC AMPLIFIED PROBE (09/20/2018 2:00 PM CHILD AND YOUTH PROGRAM ASSISTANT) Only the most recent of2 resultswithin the time period is included. Chlamydia trachomatis RNA NOT DETECTED NOT DETECTED [facility] GC RNA NOT DETECTED NOT DETECTED [facility] Please Note [facility] Comment: This test was performed using the APTIMA COMBO2 Assay ([employer] The analytical performance characteristics of this assay, when used to test [facility] specimens have been determined by [facility]. NO COLLECTION DATE RECEIVED. WE HAVE USED THE DATE THE SPECIMEN WAS RECEIVED BY THIS LABORATORY THE COLLECTION DATE. IF THIS IS INCORRECT, PLEASE CONTACT CLIENT SERVICES. PHONE NUMBER: [phone] Test Performed at: [facility] [address] [address] [facility] [address] JOAN MA DO,MPH Microbiology URINE / Unknown 018 5:03 AM CHILD AND YOUTH PROGRAM ASSISTANT Hannah Sharma [facility] ROBIOLOGY ORDERABLES [facility] [address] [place] [address] * URINALYSIS AUTO - POINT OF CARE (AMB) SLU (09/19/2018 4:02 PM CHILD AND YOUTH PROGRAM ASSISTANT) Glucose UA neg Bilirubin UA POCT neg Ketones UA POCT neg Specific [place] UA 1.015 Blood Urine POCT neg pH UA 6.5 Protein UA neg Urobilinogen UA neg Nitrite UA neg WBC UA neg Urine URINE / Unknown 09/19/2018 4 :02 PM CHILD AND YOUTH PROGRAM ASSISTANT Elsie Langston [facility] - POINT O F CARE ORDERABLES * UT INSERT NON-INDWELLING BLADDER (09/19/2018 1:20 PM CHILD AND YOUTH PROGRAM ASSISTANT) Narrative Hannah Sharma APRN-CNP - 09/19/2018 1:20 PM CHILD AND YOUTH PROGRAM ASSISTANT Hannah Sharma APRN-CNP 09/19/2018 1:20 PM Urethral [...] pH units Blood UA trace Negative Specific [place] UA POCT 1.015 1.002 - 1.030 Ketone UA neg Negative Bilirubin UA POCT neg Negative Glucose UA neg Negative Urine URINE / Unknown 09/19/2018 Hannah Sharma [facility] LAB - POI NT OF CARE ORDERABLES * IMAGING/RADIOLOGY/XRAY RESULTS ORDER (09/05/2018 7:09 AM CHILD AND YOUTH PROGRAM ASSISTANT) Only the most recent of2 resultswithin the time period is included. Anatomical Region Laterality Modality Other Narrative 09/05/2018 7:09 AM CHILD AND YOUTH PROGRAM ASSISTANT Ordered by an unspecified provider. Scanned Document IMAGING * UT SONO EXAM, TRANSVAGINAL (08/19/2018 10:46 AM CHILD AND YOUTH PROGRAM ASSISTANT) Narrative Brenna Osorio Cherie - 08/19/2018 10:46 AM CHILD AND YOUTH PROGRAM ASSISTANT Brenna Osoiro Cherie 08/19/2018 10:46 AM Ready in [employer]. Brodie Wagner MD PROCEDURE/MINOR LAZAR RGICAL ORDERABLES * DERMATOPATH TECHNICAL REPORT (08/11/2018 12:00 AM CDT) Case Report Dermatopathology Report Case: [id number] Authorizing Provider: Shavonne Anders MD Collected: 08/11/2018 12:00 AM Pathologist: Nell Doty MD Received: 08/12/2018 06:56 AM Specimen: Skin, back 10:38 AM [facility] Clinical History R/O cyst, irritated, painful. 8 10:38 AM [facility] Gross Description Specimen A: Received is one formalin filled container labeled with the patient's name and designated back. The specimen consists of a [id number] excision. The specimen is serially sectioned and a vendor representatives section is submitted in cassette 1. Jar 1. [facility] Dermatopathology Laboratory performed the technical component only. 8 10:38 AM [facility] DER[facility] Embedded Images 10:38 AM [facility] DISCLAIMER An external and internal positive and negative controls are appropriate for the histochemical, immunohistochemical and immunofluorescence stain(s) in this case (if any), except where stated explicitly. The performance characteristics of the stain(s) cited in this report were developed and its performance characteristic determined by the Dermatopathology Laboratory at [facility]. These tests need not be, and therefore are not, approved by the [place] Food and Drug Administration. The tests are used for clinical purposes. 8 10:38 AM [facility] DERMATOPATHOLOGY LABORATORY Pathology/Cytolog y TISSUE SPECIMEN FROM SKIN / Unknown 08/11/2018 08/12/2018 6:56 AM [facility]T Shavonne Anders MD LAB - PATHOLOGY/CYTO LOGY ORDERABLES DERMATOPATHOLOGY LABORATORY [facility] - Department of Dermatology [address] [place] [address], 5[address] Floor Lab [address] [phone] Care Teams Inspector Floor Sub Assembly Relationship Specialty Start Date End Date Renetta Vasquez MD [address] [id number] PCP - General 12/29/19
--- OUTSIDE RECORDS SUMMARY | 2024-12-04 18:23 | XMS_ITS | Data Portability ---
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 Plan of Treatment Reminders Order Date Submit Date Provider Last Modified By Organization Details Last Modified Time Details Appointments None recorded. Lab urinalysis, dipstick 2022 023 [email or web address] [address], [address], [place], [address], 3 12:38:23 culture, urine 2022 023 [facility] (Lab), [address], [place], [address], 3 06:50:27 urinalysis, dipstick 2022 023 [email or web address] [place], [address], [address], [place], [address], 3 15:59:34 urinalysis, dipstick 2022 023 [address], [address], [place], [address], 3 15:25:08 Referral None recorded. Procedures None recorded. Surgeries None recorded. Imaging US, pelvis 2022 023 [email or web address] [address], [address], [place], [address], 3 19:06:01 US, transvagina l 2022 023 [email or web address] [address], [address], [place], [address], 3 19:06:01 US, pelvis, complete 2022 023 [facility] Breast [place] Scheduling, [address], [place], [address], 4 12:46:08 Medication Orders Macrobid 100 mg capsule 2022 023 [email or web address] [id number], [address], [place], [place], [id number], 5 09:26:08 Patient TargetsNo targets recorded. Patient InstructionsNo instructions recorded. Reason for Referral None Reported. Results Created Date Observation Date Name Description Value Unit Range Abnormal Flag Note LastModifiedBy Organization Detail LastModifiedTime 04/28/2004/28/2023 URINA LYSIS , WITH MICRO SCOPI C, REFLE X CULTU RE color, urine Light Yellow Not Available [facility] (Lab) [address], [place], [address], 04/30/2023 11:55:44 04/28/20 23 04/28/2023 URINA LYSIS , WITH MICRO SCOPI C, REFLE X CULTU RE clarity, urine Turbid abnormal Not Available [facility] (Lab) [address], [place], [address], 04/30/2023 11:55:44 04/28/20 23 04/28/2023 URINA LYSIS , WITH MICRO SCOPI C, REFLE X CULTU RE specific gravity, urine 1.025 . 1.005- 1.035 Not Available [facility] (Lab) [address], [place], [address], 04/30/2023 11:55:44 04/28/20 23 04/28/2023 URINA LYSIS , WITH MICRO SCOPI C, REFLE X CULTU RE pH, urine 5.5 . 5.0-7. 0 Not Available [facility] (Lab) [address], [place], [address], 04/30/2023 11:55:44 04/28/20 23 04/28/2023 URINA LYSIS , WITH MICRO SCOPI C, REFLE X CULTU RE protein, UA Negati ve mg/dL negati ve, - Not Available [facility] (Lab) [address], [place], [address], 04/30/2023 11:55:44 04/28/20 23 04/28/2023 URINA LYSIS , WITH MICRO SCOPI C, REFLE X CULTU RE glucose, urine Normal mg/dL negati ve Not Available [facility] (Lab) [address], [place], [address], 04/30/2023 11:55:44 04/28/20 23 04/28/2023 URINA LYSIS , WITH MICRO SCOPI C, REFLE X CULTU RE ketones, urine Negati ve mg/dL negati ve Not Available [facility] (Lab) [address] [place], [address], 04/30/2023 11:55:44 04/28/20 23 04/28/2023 URINA LYSIS , WITH MICRO SCOPI C, REFLE X CULTU RE bilirubin, urine Negati ve negati ve Not Available [facility] (Lab) [address] [place], [address], 04/30/2023 11:55:44 04/28/20 23 04/28/2023 URINA LYSIS , WITH MICRO SCOPI C, REFLE X CULTU RE blood, urine Negati ve negati ve Not Available [facility] (Lab) [address] [facility] [place], [address], 04/30/2023 11:55:44 04/28/20 23 04/28/2023 URINA LYSIS , WITH MICRO SCOPI C, REFLE X CULTU RE nitrite, urine Negati ve negati ve Not Available [facility] (Lab) [address], [place], [address], 04/30/2023 11:55:44 04/28/20 23 04/28/2023 URINA LYSIS , WITH MICRO SCOPI C, REFLE X CULTU RE leukocyte esterase, urine 75 say/u L negati ve abnormal Not Available [facility] (Lab) [address], [place], [address], 04/30/2023 11:55:44 04/28/20 23 04/28/2023 URINA LYSIS , WITH MICRO SCOPI C, REFLE X CULTU RE urobilinogen , urine Normal mg/dL normal , <2.0 Not Available [facility] (Lab) [address], [place], [address], 04/30/2023 11:55:44 04/28/20 23 04/28/2023 URINA LYSIS , WITH MICRO SCOPI C, REFLE X CULTU RE RBC, urine 0-2 /hpf none, 0-2 Not Available [facility] (Lab) [address], [place], [address], 04/30/2023 11:55:44 04/28/20 23 04/28/2023 URINA LYSIS , WITH MICRO SCOPI C, REFLE X CULTU RE WBC, urine 6-9 /hpf none, 0-5 abnormal Not Available [facility] (Lab) [address], [place], [address], 04/30/2023 11:55:44 04/28/20 23 04/28/2023 URINA LYSIS , WITH MICRO SCOPI C, REFLE X CULTU RE squamous epithelial cells, urine Modera te /hpf none abnormal Not Available [facility] (Lab) [address], [place], [address], 04/30/2023 11:55:44 04/28/20 23 04/28/2023 URINA LYSIS , WITH MICRO SCOPI C, REFLE X CULTU RE bacteria, urine Trace /hpf none abnormal Not Available [facility] (Lab) [address], [place], [address], 04/30/2023 11:55:44 04/28/20 23 04/28/2023 URINA LYSIS , WITH MICRO SCOPI C, REFLE X CULTU RE hyaline cast, urine None /lpf none, 0-2 Not Available [facility] (Lab) [address], [place], [address], 04/30/2023 11:55:44 04/28/20 23 04/28/2023 URINA LYSIS , WITH MICRO SCOPI C, REFLE X CULTU RE mucus, urine Modera te /hpf none, trace, few abnormal Urine Cultu re to follo w. Not Available [facility] (Lab) [address], [place], [address], 04/30/2023 11:55:44 04/28/20 23 04/28/2023 CULTU RE: URINE result report SEE RESULT S BELOW Test: Cultu re: Urine Speci men Type: Urine Speci men Date: 2022 4:34 PM Resul t Date: 2022 10:51 AM Resul t Statu s: Final resul t Abnor mal: No Resul ting Lab: [facility] [address] [facility] [address] Tel: [phone] CULTU RE ----- ----- ----- --- Cultu re resul t (>=3 organ isms prese nt) indic ates possi ble conta minat ion. Repea t cultu re if sympt oms indic ate. Not Available [facility] (Lab) [address], [place], [address], 04/30/2023 11:55:45 04/28/20 23 04/28/2023 urina lysis , dipst ick Leukocytes ++ Not Available [facility] [address], [place], [address], 04/28/2023 15:24:42 04/28/20 23 04/28/2023 urina lysis , dipst ick Protein trace Not Available [place] [address], [place], [address], 04/28/2023 15:24:42 04/28/20 23 04/28/2023 urina lysis , dipst ick pH 5 Not Available [place] [address], [place], [address], 04/28/2023 15:24:42 04/28/20 23 04/28/2023 urina lysis , dipst ick Blood + Not Available [place] [address], [place], [address], 04/28/2023 15:24:42 04/28/20 23 04/28/2023 urina lysis , dipst ick Specific [place] 1.025 Not Available [facility] [address], [place], [address], 04/28/2023 15:24:42 05/17/20 23 05/17/2023 URINA LYSIS , WITH MICRO SCOPI C, REFLE X CULTU RE color, urine Yellow Not Available [facility] (Lab) [address] [place], [address], 05/18/2023 04:22:17 05/17/20 23 05/17/2023 URINA LYSIS , WITH MICRO SCOPI C, REFLE X CULTU RE clarity, urine Clear Not Available [facility] (Lab) [address] [place], [address], 05/18/2023 04:22:17 05/17/20 23 05/17/2023 URINA LYSIS , WITH MICRO SCOPI C, REFLE X CULTU RE specific gravity, urine 1.026 . 1.005- 1.035 Not Available [facility] (Lab) [address], [place], [address], 05/18/2023 04:22:17 05/17/20 23 05/17/2023 URINA LYSIS , WITH MICRO SCOPI C, REFLE X CULTU RE pH, urine 7.0 . 5.0-7. 0 Not Available [facility] (Lab) [address], [place], [address], 05/18/2023 04:22:17 05/17/20 23 05/17/2023 URINA LYSIS , WITH MICRO SCOPI C, REFLE X CULTU RE protein, UA 20 mg/dL negati ve, 10-20 Not Available [facility] (Lab) [address], [place], [address], 05/18/2023 04:22:17 05/17/20 23 05/17/2023 URINA LYSIS , WITH MICRO SCOPI C, REFLE X CULTU RE glucose, urine Normal mg/dL negati ve Not Available [facility] (Lab) [address], [place], [address], 05/18/2023 04:22:17 05/17/20 23 05/17/2023 URINA LYSIS , WITH MICRO SCOPI C, REFLE X CULTU RE ketones, urine Negati ve mg/dL negati ve Not Available [facility] (Lab) [address], [place], [address], 05/18/2023 04:22:17 05/17/20 23 05/17/2023 URINA LYSIS , WITH MICRO SCOPI C, REFLE X CULTU RE bilirubin, urine Negati ve negati ve Not Available [facility] (Lab) [address], [place], [address], 05/18/2023 04:22:17 05/17/20 23 05/17/2023 URINA LYSIS , WITH MICRO SCOPI C, REFLE X CULTU RE blood, urine Negati ve negati ve Not Available [facility] (Lab) [address], [place], [address], 05/18/2023 04:22:17 05/17/20 23 05/17/2023 URINA LYSIS , WITH MICRO SCOPI C, REFLE X CULTU RE nitrite, urine Negati ve negati ve Not Available [facility] (Lab) [address], [place], [address], 05/18/2023 04:22:17 05/17/20 23 05/17/2023 URINA LYSIS , WITH MICRO SCOPI C, REFLE X CULTU RE leukocyte esterase, urine Negati ve say/u L negati ve Not Available [facility] (Lab) [address], [place], [address], 05/18/2023 04:22:17 05/17/20 23 05/17/2023 URINA LYSIS , WITH MICRO SCOPI C, REFLE X CULTU RE urobilinogen , urine Normal mg/dL normal , <2.0 Not Available [facility] (Lab) [address], [place], [address], 05/18/2023 04:22:17 05/17/20 23 05/17/2023 URINA LYSIS , WITH MICRO SCOPI C, REFLE X CULTU RE RBC, urine 0-2 /hpf none, 0-2 Not Available [facility] (Lab) [address], [place], [address], 05/18/2023 04:22:17 05/17/20 23 05/17/2023 URINA LYSIS , WITH MICRO SCOPI C, REFLE X CULTU RE WBC, urine 0-5 /hpf none, 0-5 Not Available [facility] (Lab) [address], [place], [address], 05/18/2023 04:22:17 05/17/20 23 05/17/2023 URINA LYSIS , WITH MICRO SCOPI C, REFLE X CULTU RE squamous epithelial cells, urine Few /hpf none abnormal Not Available [facility] (Lab) [address], [place], [address], 05/18/2023 04:22:17 05/17/20 23 05/17/2023 URINA LYSIS , WITH MICRO SCOPI C, REFLE X CULTU RE bacteria, urine Trace /hpf none abnormal Not Available [facility] (Lab) [address], [place], [address], 05/18/2023 04:22:17 05/17/20 23 05/17/2023 URINA LYSIS , WITH MICRO SCOPI C, REFLE X CULTU RE hyaline cast, urine None /lpf none, 0-2 Not Available [facility] (Lab) [address], [place], [address], 05/18/2023 04:22:17 05/17/20 23 05/17/2023 URINA LYSIS , WITH MICRO SCOPI C, REFLE X CULTU RE mucus, urine Many /hpf none, trace, few abnormal Urine Cultu re not perfo rmed per refle x prosper col. Not Available [facility] (Lab) [address], [place], [address], 05/18/2023 04:22:17 05/17/20 23 05/17/2023 urina lysis , dipst ick Leukocytes trace Not Available [facility] o[facility] [address], [place], [address], 05/17/2023 15:58:59 05/17/20 23 05/17/2023 urina lysis , dipst ick Nitrite negati ve Not Available [place] [address], [place], [address], 05/17/2023 15:58:59 05/17/20 23 05/17/2023 urina lysis , dipst ick Protein trace Not Available [place] [address], [place], [address], 05/17/2023 15:58:59 05/17/20 23 05/17/2023 urina lysis , dipst ick Blood trace Not Available [place] [address], [place], [address], 05/17/2023 15:58:59 05/17/20 23 05/17/2023 urina lysis , dipst ick Specific [place] 1.020 Not Available [facility] [address], [place], [address], 05/17/2023 15:58:59 05/17/20 23 05/17/2023 urina lysis , dipst ick Glucose normal Not Available [place] [address], [place], [address], 05/17/2023 15:58:59 09/11/20 23 09/11/2023 urina lysis , dipst ick Leukocytes +2 Not Available [facility] [address], [place], [address], 09/11/2023 12:37:23 09/11/20 23 09/11/2023 urina lysis , dipst ick Nitrite normal Not Available [place] [address], [place], [address], 09/11/2023 12:37:23 09/11/20 23 09/11/2023 urina lysis , dipst ick Urobilinogen normal Not Available [facility] [address], [place], [address], 09/11/2023 12:37:23 09/11/20 23 09/11/2023 urina lysis , dipst ick Protein trace Not Available [place] [address], [place], [address], 09/11/2023 12:37:23 09/11/20 23 09/11/2023 urina lysis , dipst ick pH 7 Not Available [place] [address], [place], [address], 09/11/2023 12:37:23 09/11/20 23 09/11/2023 urina lysis , dipst ick Specific [place] 1.015 Not Available [facility] [address], [place], [address], 09/11/2023 12:37:23 09/11/20 23 09/11/2023 urina lysis , dipst ick Ketone normal Not Available [place] [address], [place], [address], 09/11/2023 12:37:23 09/11/20 23 09/11/2023 urina lysis , dipst ick Bilirubin normal Not Available [facility] [address], [place], [address], 09/11/2023 12:37:23 09/11/20 23 09/11/2023 urina lysis , dipst ick Glucose normal Not Available [place] [address], [place], [address], 09/11/2023 12:37:23 09/11/20 23 09/11/2023 urina lysis , dipst ick Appearance normal Not Available [facility] [address], [place], [address], 09/11/2023 12:37:23 09/11/20 23 09/11/2023 urina lysis , dipst ick Color normal Not Available [place] [address], [place], [address], 09/11/2023 12:37:23 1209/13/2023 CULTU RE: URINE result report SEE RESULT S BELOW Test: Cultu re: Urine Speci men Sourc e: Urine Voide d Speci men Type: Urine Speci men Date: 2022 3:45 PM Resul t Date: 2022 5:45 AM Resul t Statu s: Final resul t Abnor mal: No Resul ting Lab: [facility] [address] [facility] [address] Tel: CULTU RE ----- ----- ----- --- No growt h in 1 day (dete ction level of 10,00 0 colon ies / ml.) Not Available [facility] (Lab) [address], [place], [address], 09/15/2023 06:50:26 11/09/19 25 11/09/2024 IMAGE GUIDE [...] London Hogan CT on 025 at 1544 NON DESTRUCTIVE TESTER ----- ----- ----- ----- ----- ----- ----- ----- ----- ----- ----- ----- ----- ----- ----- ----- ----- ---- HPV RESUL TS: HPV mRNA E6/E7 : No HPV mRNA Detec sartahk NOTE: This high risk HPV mRNA assay [...] s: LMP (if appli cable ): Clini moer Histo ry/Pr eviou s Pap: Type of [...] as clini turner warra nted. Not Available [facility] (Lab) [address], [place], [address], 11/14/2024 16:48:43 09/20/20 23 09/20/2023 US, pelvi s No observ ation record ed. [email or web address] [place] [address], [place], [address], 09/20/2023 18:13:11 09/20/20 23 09/20/2023 US, trans vagin al No observ ation record ed. [email or web address] [place] [address], [place], [address], 09/20/2023 18:13:03 09/20/20 23 09/20/2023 US, pelvi s No observ ation record ed. LISA Mony [address], [place], [address], 09/28/2023 12:51:11 Result Notes None recorded. 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 15:18:51 Deep pain on intercou rse [id number] Completed 201707/21/2021 Deep dyspareu mirna;Prac mariam ID: 0001 Diane rodriguez [facility] 15:18:40 Pelvic and perineal pain [id number] Completed 201707/21/2021 Pelvic and perineal pain;Pra ctice ID: 0001 Diane rodriguez [facility] 15:18:47 Urinary tract infectio us disease 76795612 Completed 201707/21/2021 Urinary tract infectio n, site not specifie d;Practi ce ID: 0001 Diane Richardson [facility] 15:18:53 Asymptom at microsco pic hematuri a [id number] Completed 201707/21/[facility];Practi ce ID: 0001 Diane Richardson [facility] 15:18:39 Pregnanc y test negative 879824483 Completed 201707/21/2021 Encounte r for pregnanc y test, result negative ;Practic e ID: 0001 Diane Richardson [facility] 15:18:48 Blood leukocyt e number above referenc e range [id number] Completed 201907/21/2021 Elevated white blood cell count, unspecif ied;Prac mariam ID: 0001 Diane Richardson [facility] 15:18:45 History of urinary stone [id number] Completed 201907/21/2021 Personal history of urinary calculi; Practice ID: 0001 Diane Richardson [facility] 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 15:18:50 Problem Notes None recorded. Procedures Surgical History Date Name Laterality Status Provider Name and Address Organization Details Recorded Time 10/26/19 25 Date of Last Mammogram completed ABDULKADIR Jacob [facility] 11/09/2024 09:39:57 07/17/20 20 Date of Last Pap Smear completed Diane Richardson [facility] 07/21/2021 15:21:10 10/11/19 20 [facility] 09/11/2023 13:34:33 05/11/20 18 Date of Last Colonoscopy completed Fabiola Blount [facility] 04/28/2023 15:22:35 10/11/19 18 [facility] 09/11/2023 13:32:07 10/11/19 17 biopsy of breast completed Anabellemena Criag [facility] 09/11/2023 13:34:51 10/11/19 12 [facility] 09/11/2023 13:35:07 10/11/19 12 Abdominoplasty completed Anabelle Craig [facility] 09/11/2023 13:30:10 10/11/19 11 Endometrial Ablation completed Anabellemena Craig [facility] 09/11/2023 13:33:58 10/11/19 10 lithotripsy completed Anabellemena Craig [facility] 09/11/2023 13:33:25 10/11/19 09 Hernia repair w/mesh [facility] 09/11/2023 13:30:17 08/09/20 08 section completed Anabellemena Craig [facility] 09/11/2023 13:32:37 08/18/20 06 section completed [facility] 09/11/2023 13:32:29 10/11/19 05 Laparoscopy completed [facility] 09/11/2023 13:35:38 10/11/18 95 lumbar spinal fusion completed [facility] 09/11/2023 13:31:56 Endometrial Ablation completed [facility] 11/09/2024 09:35:[address] [facility] 11/09/2024 09:35:[address] [facility] 11/09/2024 09:35:06 Breast Biopsy completed [facility] 11/09/2024 09:35:06 Imaging Results Imaging Date Name Status LastModified by Organization Details LastModified Time 09/20/2023 US, pelvis completed [email or web address] [place] [address], [place], [address], 09/20/2023 18:13:11 09/20/2023 US, transvaginal [email or web address] [address], [place], [address], 09/20/2023 18:13:03 09/20/2023 US, pelvis completed LISA Mony [address], [place], [address], 09/28/2023 12:51:11 Procedure Notes None recorded. Medical Equipment None Reported. Allergies Allergen ID Allergen Name Allergen Category Reaction Reaction Severity Criticality Documentation Date Start Date Code Code System Note Provider Name and Address Organization Details Recorded Time 19204 ciproflox acin medicatio n diarrhea Not available Not available 09/27/2020 2551 RxNorm [facility] 16:02:14 2005 Non-stero idal anti-infl ammatory agent (product) medicatio n Not available Not available Not available 06/21/2020 98225 005 SNOMED FACE IVANA De La Cruz [facility], [facility] 3 16:02:30 2291 aspirin medicatio n Not available Not available Not available 07/17/2020 1191 RxNorm SHIV De La Cruz [facility], [facility] 3 16:02:24 2292 Cipro medicatio n Not available Not available Not available 07/17/2020 77797 3 RxNorm Diane Richardson [facility], [facility] 1 16:42:24 2293 clarithro mycin medicatio n Not available Not available Not available 07/17/2020 29677 RxNorm Estefany Hawk [facility], [facility] 0 09:43:54 2294 erythromy cinthia medicatio n vomiting Not available Not available 07/17/2020 4053 RxNorm Estefany Hawk [facility], [facility] 0 09:44:00 2295 wheat gluten extract food Not available Not available Not available 07/17/2020 72358 81 RxNorm Estefany Hawk [facility], [facility] 0 09:44:06 2296 ibuprofen medicatio n Not available Not available Not available 07/17/2020 5640 RxNorm Estefany Hawk [facility], [facility] 0 09:44:11 2297 midazolam medicatio n Not available Not available Not available 07/17/2020 6960 RxNorm Estefany Hawk [facility], [facility] 0 09:44:20 2298 naproxen medicatio n Not available Not available Not available 07/17/2020 7258 RxNorm Estefany Hawk [facility], [facility] 0 09:44:25 2299 tramadol medicatio n hallucina tions Not available Not available 07/17/2020 06622 RxNorm Smitha De La Cruz null, [facility] 3 16:01:37 65262 Biaxin medicatio n Not available Not available Not available 09/11/2023 12059 9 RxNorm Anabelle Craig [facility] 3 13:37:34 Medications Name Sig Start [...] Prescrib ed Elsewher e: No Locat ion: [facility] odify By: deloris manning DateTime : 06/24/20 [...] Prescrib ed Elsewher e: Yes Loca tion: [facility] odify By: jocelyn maguire DateTime : 04/01/20 [...] Prescrib ed Elsewher e: Yes [facility] od[facility] By: jocelyn maguire DateTime : 03/25/20 16 10:00:00 AM Not Available Not Available Not Available ciproflox acin 500 mg tablet take 1 tablet by oral route every 12 hours 07/08 completed Prescrib ed Elsewher e: No Locat ion: [facility] odify By: deloris manning DateTime : 07/07/20 [...] e: No Locat ion: Jose Elias claros [facility] odify By: [email or web address] Encount er DateTime : 07/08/20 18 01:50:33 [...] Prescrib ed Elsewher e: No [facility]at [facility] odify By: deloris Perales ter DateTime : 06/27/20 18 10:38:40 AM Not Available Not Available Not Available Quasense 0.15 mg-30 mcg (91) tablets,3 month dose pack take 1 tablet by oral route every day 06/27 completed Prescrib ed Elsewher e: No [facility] odify By: deloris Perales ter DateTime : 06/20/20 18 01:00:00 PM Not Available Not Available Not Available Pataday 0.2 % eye drops instill 1 drop by ophthalm ic route every day into affected eye(s) active Prescrib ed Elsewher e: Yes Loca tion: Jose Elias claros [facility] odify By: [email or web address] z Diaz ter [...] Prescrib ed Elsewher e: Yes Loca tion: [facility] odify By: [email or web address] z Encoun ter [...] Updated DateTime 04/28/2023 165.1 cm 42.4 kg/m2 958878.05 g Fabiola Blount [facility] 04/28/2023 15:22:17 Date Recorded Systolic blood pressure Diastolic blood pressure Provider Name and Address Organization Details Last Updated DateTime 04/28/2023 122 mm[Hg] 80 mm[Hg] Hannah Sharma, [facility]- [address], [place], [address], [facility] 04/28/2023 15:37:39 Date Recorded Body height Body mass index (BMI) Body weight Systolic blood pressure Diastolic blood pressure Provider Name and Address Organization Details Last Updated DateTime 05/17/2023 165.1 cm 42.8 kg/m2 796723.2 4 g 137 mm[Hg] 85 mm[Hg] Smitha De La Cruz [facility] 3 15:57:09 Date Recorded Body height Body mass index (BMI) Body weight Systolic blood pressure Diastolic blood pressure Provider Name and Address Organization Details Last Updated DateTime 09/11/2023 165.1 cm 42.4 kg/m2 981796.0 5 g 127 mm[Hg] 82 mm[Hg] Anabelle Rafa [facility] 3 10:23:27 Date Recorded Body height Body mass index (BMI) Body weight Systolic blood pressure Diastolic blood pressure Provider Name and Address Organization Details Last Updated DateTime 11/09/2024 165.1 cm 43.3 kg/m2 706830.0 2 g 131 mm[Hg] 82 mm[Hg] ABDULKADIR Jacob [facility] 5 09:37:40 Social History Question Answer Notes LastModified by Organizat ion Details LastModified Time Tobacco Smoking Status Never Smoker Pat Soriafreda [email or web address], [facility] 09/20/2023 16:18:57 Do You Have An [...] Or The Highest Degree You Have Received? [id number] Information not available 07/22/2021 What Is Your [...] Anxious, Or Unable To Sleep At Night)? NB54214-4 Information not available 07/21/2021 Do You Use Any Illicit Or Recreational Drugs? No Information not available 07/21/2021 Do You Use Sunscreen Routinely? Yes Information not available 07/21/2021 Have You Used IV Drugs? No Information not available 07/22/2021 Sex: Unknown Functional Status Question Answer Note LastModified by Organizat ion Details LastModified Time Do you have difficulty walking or climbing stairs? No [email or web address] Information not available 11/09/2024 Are you able to walk? YESWOREST Information not available 07/21/2021 Do you have difficulty dressing or bathing? No [email or web address] Information not available 11/09/2024 What is your exercise level? Occasional Information not available 04/28/2023 Mental Status None recorded. Family History Relationship Description Onset Age of this Age Resolved Age Notes LastModified by Organization Details LastModified Time Mother Carcinoma in situ of breast [email or web address] Not available 2024 09:33:23 Mother Hypercholest erolemia [email or web address] Not available 2019 09:36:28 Mother Excision of cyst of ovary [email or web address] Not available 2024 09:33:23 Mother Asthma [email or web address] Not available 09:37:03 Maternal Grandmother Hypercholest erolemia [email or web address] Not available 2019 09:36:28 Maternal Grandmother Excision of cyst of ovary [email or web address] Not available 2024 09:33:23 Paternal Grandmother Hypercholest erolemia [email or web address] Not available 2019 09:36:28 Maternal Grandfather Asthma [email or web address] Not available 2019 09:37:03 Brother Asthma [email or web address] Not available 1 09:37:03 Father Diabetes mellitus [email or web address] Not available 2019 09:37:12 Father Depressive disorder [email or web address] Not available 2019 09:37:23 Paternal Grandfather Disorder of cardiovascul ar system [email or web address] Not available 2024 09:33:23 Paternal Grandfather Carcinoma in situ of lung [email or web address] Not available 09:33:23 Medical History Condition Response [...] SNOMED-CT Code Diagnosis ICD10 Code Diagnosis Note [id number] Hannah Sharma [facility] [address],[place] [address] 06/21/2020 14:59:25 06/21/2020 17:18:05 Mass of right breast 8575156438 [id number] N63.10 Exam warrants need for further imaging [...] of care. Mass of left breast 1224 550852 5777310 N63.20 [id number] Hannah Sharma [facility] [address],[place] [address] 07/17/2020 09:32:02 07/17/2020 10:22:59 Gynecologic examination 87608214 Z01.419 Suggested Calcium with Vitamin D 1200-1500m g daily. Patient advised to get an annual flu shot in the fall and she could obtain at [facility] or [facility] take care clinic. Also to obtain [...] week. No other issues or complaints . [id number] Hannah Sharma , [facility] [address],[facility] [place] [address] 07/18/2021 16:24:19 07/21/2021 20:17:51 Urinary symptoms 618326977 R39.9 [id number] Hannah Sharma , [facility] [address],[facility] [place] [address] 07/22/2021 09:31:43 07/22/2021 10:58:46 Urinary symptoms 374193620 R39.9 Gynecologi c examination 41490350 Z01.419 Suggested Calcium with Vitamin D 1200-1500m g daily. Patient advised to get an annual flu shot in the fall and she could obtain at [facility] or [facility] care clinic. Also to obtain TDap [...] complaints . History of calculus of kidney 613568936 Z87.442 R10.9 R35.0 We will set up [...] to patient satisfacti on. Pain in pelvis 38917129 R10.2 R10.9 [id number] Hannah Sharma [facility] [address],[place] [address] 04/28/2023 15:07:27 04/28/2023 15:40:57 Urinary symptoms 907554014 R39.9 Suspect UTIUrine culture sentRx sentAzo/Cy stex OTC prn Time spent in visit is a total of 15 mins with at least 50% of visit consisting of counseling and review of plan of care. [id number] Adam Magana MD [place] [address],[place] [address] 05/17/2023 15:39:12 05/17/2023 16:29:18 Urinary symptoms 708120802 R39.9 [id number] Hannah Sharma [facility] [address],[place] [address] 09/11/2023 10:03:43 09/14/2023 12:01:45 Pain in pelvis 05101094 R10.2 This patient is a 43 -year-old [...] Immediatel y with nausea, vomiting, fever, chills. [id number] [facility] [address],[place] [address] 09/20/2023 16:18:36 09/20/2023 17:29:18 Pain in pelvis 71995132 R10.2 [id number] MAGGIE Johnson [place] [address],[place] [address] 11/09/2024 09:33:15 11/09/2024 11:54:37 Gynecologic examination 56428355 Z01.419 WWEBC - Partner with vasectomyP ap [...] ID Guarantor Name 04/28/2023 1 [place] [id number] Damon Nicole [id number] Damon Nicole 05/17/2023 1 [place] [id number] Damon Nicole [id number] Damon Nicole 09/11/2023 1 [place] [id number] Damon Nicole [id number] Damon Nicole 09/20/2023 1 [place] [id number] Damon Nicole [id number] Damon Nicole 11/09/2024 1 [place] [id number] Damon Nicole [id number] AB Damon Nicole Notes Date Note Type Note Provider Name and Address Organization Details Recorded Time 3 text/html Here today for urinary sx's of urinary urgency, bladder spasms and frequency since returning this week from vacation. Neg pain of abd/pelvis/flankNeg GI sx'sNeg N/V/F/C/DNeg Vag d/c, odor, irritation, itching Hannah Sharma, [facility] [address], [place], [address], [facility] 04/28/2023 15:39:26 3 text/html [...] await culture and urinalysis. Spent 20 minutes fhbb-bh-fsjt. More than 50% was counseling. Adam Magana MD [address], [place], [address], [facility] 05/17/2023 16:25:45 3 text/html [...] monogamous Hannah Friederich, WHNP- [address], [place], [address], [facility] 09/14/2023 11:44:58 5 text/html [...] mammogramcolonoscopy UTD MAGGIE Johnson [address], [place], [address], [facility] 11/09/2024 11:46:11 OBGyn Episode Ob Episode Information Episode Created Date Number of Fetuses Patient Bloodtype Patient rh Status Prepregnancy Weight lbs Domestic Partner Domestic Partner Phone Father Name Bookkeeping Machine Mechanic Status 07/17/20 20 1 DELETED Jose Calculation [...] Domestic Partner Domestic Partner Phone Father Name Bookkeeping Machine Mechanic Status 07/17/20 20 1 CLOSED Fetus Data [...] Domestic Partner Domestic Partner Phone Father Name Bookkeeping Machine Mechanic Status 07/17/20 20 1 DELETED Jose Calculation [...] Domestic Partner Domestic Partner Phone Father Name Bookkeeping Machine Mechanic Status 07/17/20 20 3 CLOSED Fetus Data First Name Last Name Admitted to NICU Weight (g) Sex Living Outcome Pediatric Complications Fetus ID Race Codes Race Delivery Type 1785.79 1704 F Prematur e 5119 Repeat 1757.66 9 F Prematur e 11677 Repeat 1672.39 3704 F Prematur e 48106 Repeat Jose Calculation Initial Jose Date Initial [...]
[2024-12-04 19:53] LABS: Alanine Aminotransferase 79 U/L (6-35); Albumin Level 4.1 g/dL (3.5-5.1); Alkaline Phosphatase 86 U/L (38-126); Anion Gap 9 mmol/L (4-12); Aspartate Amino Transferase 57 U/L (14-36); Bilirubin,Total 0.5 mg/dL (0.2-1.3); Blood Urea Nitrogen 14 mg/dL (7-17); Calcium 9.1 mg/dL (8.4-10.2); Carbon Dioxide 26 mmol/L (22-30); Chloride 102 mmol/L (98-107); Estimated Glomerular Filt Rate > 60; Glucose 113 mg/dL (65-110); Potassium 4.3 mmol/L (3.4-5.0); Sodium 137 mmol/L (137-145)
[2024-12-04 22:59] LABS: Hemoglobin A1C 6.3 % (<5.7)
== END 2024-12-04 15:55 | disposition home or self-care (01) ==
LOC: ANHGOSHLAB 15:55
PROVIDERS: PCP Family Medicine; Visit Provider Family Medicine
DX: E11.9 Type 2 diabetes mellitus without complications (principal); I10 Essential (primary) hypertension; I21.9 Acute myocardial infarction, unspecified; R03.0 Elevated blood-pressure reading, without diagnosis of hypertension
CPT/HCPCS: 36415; 80053; 83036; 84443

== ENCOUNTER 2025-04-22 09:24 | Emergency (ER) | payer BC, SELFPAY ==
--- OUTSIDE RECORDS SUMMARY | 2025-04-22 09:27 | XMS_ITS | Encounter Summary ---
Author Organization [facility] Address [address] [place] [address] Care Team Providers Care Shift Manager Name Role Phone Cristina Navarro NP Primary Care Provider + Gloria Urbina MD Primary Care Provider Encounter Details Date Type Department Care Team (Late st Contact Info) Description 09/15/2024 Orders Only [facility] Health Information Management [address] [place] [address] Juan Henley MD [address] [place] [address] Social History Tobacco Use Types Packs/Day [...] Scan (09/15/2024) Anatomical Region Laterality Modality Other us Juan Henley MD [facility] PROCEDURES F inal Result documented in this encounter Visit Diagnoses Not on filedocumented in this encounter Care Teams Shift Manager Relationship Specialty Start Date End Date Cristina Navarro NP [address] [place] [address] PCP - General Nurse Practitioner 12/03/23 09/18/24 Gloria Urbina MD [address] [place] [address] [address] [place] [address] PCP - General Family Practice 09/19/24 documented as of this encounter
--- OUTSIDE RECORDS SUMMARY | 2025-04-22 09:27 | XMS_ITS | Encounter Summary ---
Author Organization [facility] Address [address] [place] [address] Care Team Providers Care Corrosion Control Engineer Name Role Phone Michael Acharya MD Primary Care Provider [phone] Sarita Lopez NP Primary Care Provider [phone] Cristina Navarro NP Primary Care Provider + Gloria Urbina MD Primary Care Provider Encounter Details Date Type Department Care Team (Late st Contact Info) Description 08/05/2020 Telephone [facility] ([facility]) [address] [place] [address] Bentley Mehta, Social History Tobacco Use [...] on filedocumented in this encounter Care Teams Corrosion Control Engineer Relationship Specialty Start Date End Date Michael Acharya MD [address] [place] [address] PCP - General 07/26/17 07/19/22 Sarita Lopez NP [address] [place] [address] PCP - General Nurse Practitioner 07/20/22 12/02/23 Cristina Navarro NP [address] [place] [address] [address] [place] [address] PCP - General Nurse Practitioner 12/03/23 09/18/24 Gloria Urbina MD [address] [place] [address] [address] [place] [address] PCP - General Family Practice 09/19/24 documented as of this encounter
--- OUTSIDE RECORDS SUMMARY | 2025-04-22 09:27 | XMS_ITS ---
Author Organization [facility] Address [address] [place], [place] [id number] Care Team Providers Care Svp Digital Ad Sales Name Role Phone KYLEE Rahman Unavailable [phone] Answer, Declined Unavailable Unavailable SNOOK, MARIO Unavailable [phone] REASON FOR VISIT Plantar fasciitis fu Encounters Encounter Location Date Provider Diagnosis [facility] [place] [address] [place], [place] [id number] 07/03/2024 MARIO GREEN Plan Of Treatment No Information Progress Notes * KIRAN LEOPOLDO RDOB:1980 (44 yo F)Acc No.[id number]:07/03/2024 Patient: LEOPOLDO LANDAVERDE Provider: Ck Green DPM :1980 A ge:44 Y S ex:Female Date:07/03/2024 Address:[id number] Subjective: * Chief Complaints: * 1 . Plantar fasciitis fu. * Medical History: Objective: * Vitals: Assessment: Plan: * Treatment: * Billing Information: * Visit Code: * Procedure Codes: * Electronic signature of MARIO GREEN DPM on 04/22/2025 at 09:27 AM CDT Sign off status: Pending * Provider: Ck Green DPM Date: 0 07/03/2024 Generated for Sammii ng/Faxing/eTransmitting on: 0 04/22/2025 09:27 AM CDT
--- OUTSIDE RECORDS SUMMARY | 2025-04-22 09:27 | XMS_ITS | Clinical Summary ---
Author Organization [facility] Address [address] [place] [address] Care Team Providers Care Surveillance Agent Name Role Phone Unavailable Primary Care Provider Unavailabl e Immunizations Immunization Administration Dates Next Due Covid-19, Mrna, Lnp-s, Pf, 30 Mcg/0.3 Ml Dose (P fizer) 11/05/2021 Social History Tobacco Use Types Packs/Day Years Used Date Smoking Tobacco: Never Assessed Comments Unknown Sex and Gender Information Value Date Recorded Sex Assigned at Not on file Legal Sex Female 9:51 PM ART CONSULTANT Gender Identity Not on file Sexual Orientation Not on file Plan of Treatment Health Maintenance Due Date Last Done Comments Hepatitis C Virus (HCV) Screening 1980 TdaP Immunization 1980 Human Papillomavirus (HPV) Immunization (1 - 3-dose series) 1994 Hepatitis B Immunization (1 of 3 - 19+ 3-dose series) 1998 Pap Smear 2000 Cervical Cancer Screening (CCS) 2009 HPV/Cotest 2009 Cologuard 2024 Colonoscopy 2024 Colorectal Cancer Screening 2024 Immunochemical Fecal Occult Blood 2024 SARS-COV-2 Immunization ( season) 2024 11/05/2021, 12/31/2020, 12/10/2020 Influenza Immunization (#1) 06/11/202501/2022, 06/25/2020, 06/27/2019, Additional history exists Respiratory Syncytial Virus (RSV) Immunization (Adult) (1 [...]
--- OUTSIDE RECORDS SUMMARY | 2025-04-22 09:27 | XMS_ITS | Clinical Summary ---
Author Organization [facility] Address [address] [place] [address] Care Team Providers Care Hazardous Material Technician Name Role Phone Unavailable Primary Care Provider [...] on file Legal Sex Female 12:12 PM CASH CLERK Gender Identity Not on file Sexual Orientation [...] 12:27 PM CDT Height 165.1 cm (5' 5) 07/28/2022 12:27 PM CDT Body Mass Index 41.27 07/28/2022 12:27 PM CDT Plan of Treatment Health Maintenance Due Date Last Done Comments DTAP/TDAP/TD VACCINES (1 - Tdap) 1998 HEPATITIS B VACCINES (1 of 3 - 19+ 3-dose series) 1998 HPV/Cotest (21-29) 2000 CERVICAL CANCER SCREENING 2009 HPV/Cotest (30-65) 2009 PAP SMEAR 2009 BREAST CANCER SCREENING 07/27/2023 07/27/20 22, 07/27/2022, 07/30/2021, Additional history exists COLORECTAL SCREENING 2024 Colorectal Cancer Screening 2024 FIT-DNA Q 3 years 2024 FIT/FOBT Q 1 year 2024 Flex Sig/CT Colonography Q 5 years 2024 COVID-19 Vaccine ( season) 2024 11/05/2021 INFLUENZA VACCINE (#1) 2025 06/25/2020, 2018 HPV VACCINES Aged Out No longer eligi ble based on patient's age to complete this topic Insurance
--- OUTSIDE RECORDS SUMMARY | 2025-04-22 09:27 | XMS_ITS | Encounter Summary ---
Author Organization [facility] Address [address] [place] [address] Care Team Providers Care Drug And Alcohol Treatment Specialist Name Role Phone Michael Acharya MD Primary Care Provider [phone] Renetta Vasquez MD Primary Care Provider Un available Encounter Details Date Type Department Care Team (Late st Contact Info) Description 08/12/2018 Lab Requisition [facility] Care DermPath Lab [address] [facility] [place] [id number] Shavonne Anders MD [address] [facility] [address] [place] [address] Social History Tobacco Use Types Packs/Day Years Used Date Smoking Tobacco: Never Smokeless Tobacco: Never Alcohol Use Standard Drinks/Week Comments Yes 0 (1 standard drink = 0.6 oz pur e alcohol) rarely Comments Unknown Sex and Gender Information Value Date Recorded Sex Assigned at Not on file Legal Sex Female 2:16 PM CDT Gender Identity Not on file Sexual Orientation Not on file documented as of this encounter Plan of Treatment Not on file documented as of this encounter Procedures Procedure Name Priority Date/Time Associated Diagnosis Comments DERMATOPATH TECHNICAL REPORT Routine 08/11/2018 12:00 AM CDT documented in this encounter Results * DERMATOPATH TECHNICAL REPORT (08/11/2018 12:00 AM CDT) Case Report Dermatopathology Report Case: [id number] Authorizing Provider: Shavonne Anders MD Collected: 08/11/2018 12:00 AM Pathologist: Nell Doty MD Received: 08/12/2018 06:56 AM Specimen: Skin, back 10:38 AM T DERMATOPATHOLOGY LABORATORY Clinical History R/O cyst, irritated, painful. 10:38 AM [facility] DERMATOPATHOLOGY LABORATORY Gross Description Specimen A: Received is one formalin filled container labeled with the patient's name and designated back. The specimen consists of a [id number] excision. The specimen is serially sectioned and a sales representative door to door section is submitted in cassette 1. Jar 1. [facility] Dermatopathology Laboratory performed the technical component only. 10:38 AM [facility] DERMATOPATHOLOGY LABORATORY Embedded Images 10:38 AM [facility] DERMATOPATHOLOGY LABORATORY DISCLAIMER An external and internal positive and negative controls are appropriate for the histochemical, immunohistochemical and immunofluorescence stain(s) in this case (if any), except where stated explicitly. The performance characteristics of the stain(s) cited in this report were developed and its performance characteristic determined by the Dermatopathology Laboratory at [facility]. These tests need not be, and therefore are not, approved by the [place] Food and Drug Administration. The tests are used for clinical purposes. 10:38 AM [facility] DERMATOPATHOLOGY LABORATORY at 1038 CDT Pathology/Cytolog y TISSUE SPECIMEN FROM SKIN / Unknown 08/11/2018 08/12/2018 6:56 AM CDT us Shavonne Anders MD LAB - PATHOLOGY/CYTOLOGY ORD ERABLES Final Result DERMATOPATHOLOGY LABORATORY [facility] - Department of Dermatology [address] [place] [address], 5th Floor Lab [address] [phone] documented in this encounter Visit Diagnoses Not on filedocumented in this encounter Care Teams Drug And Alcohol Treatment Specialist Relationship Specialty Start Date End Date Michael Acharya MD [address] [place] [address] PCP - General 08/03/18 12/28/19 Renetta Vasquez MD [address] [place] [address] PCP - General 12/29/19 documented as of this encounter
--- OUTSIDE RECORDS SUMMARY | 2025-04-22 09:27 | XMS_ITS | Clinical Summary ---
Author Organization [facility] Address [address] [place] [address] Care Team Providers Care Rail Car Operator Name Role Phone None, Provider MD Primary [...] 10:44 AM CDT Height 165.1 cm (5' 5) 04/05/2024 10:44 AM CDT Body Mass Index [...] 2024 08/30/2022, 11/05/2021, 12/31/2020, Additional history exists HPV Vaccines Aged Out [...] 5 Years) and At-Risk Patients (6 to 49 Years) Aged Out No longer eligible based on patient's age to complete this topic RSV Immunizations Under 20 Months Aged Out No longer eligible based on patient's age to complete this topic Insurance Care Teams Rail Car Operator Relationship Specialty Start Date End Date None, Provider, MD PCP - General UNKNOWN PHYSICIAN SPECIALTY 04/05/24
--- OUTSIDE RECORDS SUMMARY | 2025-04-22 09:27 | XMS_ITS | Clinical Summary ---
Author Organization Formerly [facility] Address [address] [place] [address] Care Team Providers Care Hearing Impaired Itinerant Teacher Name Role Phone Gloria Urbina MD Primary [...] IN LEFT EYE FOUR TIMES DAILY. Active [id number] e-[id number]-gtu al 27 mg iron-1.13 mg-581.92 mg capsule Take by mouth Active fluticasone propionate (FLONASE) 50 mcg/actuation nasal spray SHAKE LIQUID AND USE 1 SPRAY IN EACH NOSTRIL TWICE DAILY Activ e cetirizine (ZyrTEC) 10 mg tablet Take 1 tablet (10 mg total) by mouth daily Active famotidine (PEPCID) 20 mg tablet Take 1 tablet (20 mg total) by mouth 2 (two) times a day as needed for heartburn Active rosuvastatin (CRESTOR) 10 mg tablet TAKE 1 TABLET(10 MG) BY MOUTH DAILY 90 tablet 01/31/20 25 Active empagliflozin (JARDIANCE) 25 mg tablet 1 tablet (25 mg total) daily Active coenzyme Q10 200 mg capsule Take 1 capsule (200 mg total) by mouth daily Active Active Problems Problem Noted Date Diagnosed [...] Encounters Date Type Department Care Team Description 04/20/2025 10:25 AM CDT - 04/20/2025 11:59 PM CDT Hospital Encounter [facility] [address] [place] [address] At high risk for breast cancer; Family history of breast cancer; Dense breast tissue Discharge Disposition: Discharge to home or self care 04/20/2025 Results Follow-Up [facility] [address] [place] [address] Yuki Callejas, ANIBAL MRI Breast Bilateral W WO Contrast 03/20/2025 9:15 AM CDT Office Visit [facility] [address] [place] [id number] Juan Henley MD Lipid screening (Primary Dx) from Last 3 Months Immunizations Immunization Administration [...] Sign Reading Time Taken Comments Blood Pressure 112/80 03/20/2025 9:00 AM CDT Pulse 78 03/20/2025 9:00 AM CDT Temperature - - Respiratory Rate 16 03/20/2025 9:00 AM CDT Oxygen Saturation 98% 03/20/2025 9:00 AM CDT Inhaled Oxygen Concentration - - Weight 112.9 kg (249 lb) 04/20/2025 10:38 AM CDT Height 165.1 cm (5' 5) 04/20/2025 10:38 AM CDT Body Mass Index 41.44 04/20/2025 10:38 AM CDT Plan of Treatment Health Maintenance Due Date Last Done Comments Cervical Cancer Screening 1979 Colon Cancer Screening-Colonoscopy 1979 Depression Screening 1979 Hepatitis C Screening 1979 DTaP/Tdap/Td Vaccine (1 - Tdap) 1990 Hepatitis B Screening 1997 Regular Well Visit/Exam 18-64 1997 Covid-19 Vaccine (2 - 2023- season) 2024 11/05/2021 Influenza Vaccine (#1) 2025 3, 06/25/2020, 06/27/2019, Additional history exists Breast Cancer Screening-Mammogram 10/27/2025 10/27/2024, 10/18/2023, 07/27/2022, Additional history exists HPV Vaccines Aged Out No longer eligi ble based on patient's age to complete this topic Pneumococcal vaccine <65 Aged Out No longer eligible based on patient's age to complete this topic Medical Devices Implanted Type Area Rope Coiling Machine Operator Device Identifier Shelf Expiration Date Model / Serial / Lot Hernia Mesh Abdomen Lumbar Spine Fusion Instrumentation Implanted: 5 (Quantity not on file) Spine Lumbar Procedures Procedure Name Priority Date/Time Associated Diagnosis Comments MRI BREAST BILATERAL W WO CONTRAST Schedule Routine, Read Routine (OP Routine) 04/20/2025 12:16 PM CDT At high risk for breast cancer Family history of breast cancer Dense breast tissue POCT LIPID PANEL Routine 03/20/2025 8:54 AM CDT Lipid screening SCREENING MAMMOGRAM BILATERAL W MIRANDA Schedule Routine, Read Routine (OP Routine) 10/27/2024 11:28 AM EDGE SETTER Breast cancer screening by mammogram from Last 3 Months or Most Recently Relevant to Health Maintenance Results * MRI Breast Bilateral W WO Contrast (04/20/2025 12:16 PM CDT) Anatomical Region Laterality Modality Breast Bilateral Magnetic Resonan ce 04/20/2025 3:16 PM CDT Impressions 04/20/2025 3:19 PM CDT No MRI evidence of malignancy in EITHER breast. OVERALL FINAL ASSESSMENT: BI-RADS Category 1: Negative. RECOMMENDATION: Annual screening mammography and breast MRI are recommended. Dictated by: Lemuel Colby M.D. The radiology attending physician has personally reviewed this study, and had reviewed and/or edited this written report and agrees with it. Electronically signed by: Beatris Cerraot M.D. Narrative 04/20/2025 3:19 PM CDT EXAMINATION: 1. MRI EXAMINATION OF THE BREASTS WITH AND WITHOUT CONTRAST 2. 3D POST PROCESSING ON A DEDICATED 3D WORKSTATION HISTORY: High-risk Screening. 44-year-old woman with an elevated lifetime risk of breast cancer secondary to family history (25.4% lifetime risk). 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 TECHNIQUE: MRI examination of the breasts per breast tumor protocol with and without gadolinium contrast. A dedicated breast imaging coil was used. The images were transferred to a breast CAD system for 3D post processing and contrast kinetics analysis. CONTRAST: Gadoterate meglumine, 20 ml COMPARISON: Bilateral breast MR from 01/26/2023 and 01/15/2022. Diagnostic left mammography from 11/09/2024. Multiple other mammographic studies, dating back to 2017. BREAST COMPOSITION: Heterogeneous fibroglandular tissue BACKGROUND PARENCHYMAL ENHANCEMENT: Moderate FINDINGS: Heterogeneous enhancement throughout both breasts is favored to represent benign increased background parenchymal enhancement. There is no suspicious mass or non-mass enhancement EITHER breast. No abnormally enlarged lymph nodes are identified in the visualized portions of either axilla. Procedure Note Beartis Cerrato MD - 04/20/2025 EXAMINATION: 1. MRI EXAMINATION OF THE BREASTS WITH AND WITHOUT CONTRAST 2. 3D POST PROCESSING ON A DEDICATED 3D WORKSTATION HISTORY: High-risk Screening. 44-year-old woman with an elevated lifetime risk of breast cancer secondary to family history (25.4% lifetime risk). Patient has history of MR-guided biopsy of the LEFT breast in 2019 which demonstrated stromal fibrosis, as well as a biopsy-proven fibroadenoma in the RIGHT breast in 2016. TECHNIQUE: MRI examination of the breasts per breast tumor protocol with and without gadolinium contrast. A dedicated breast imaging coil was used. The images were transferred to a breast CAD system for 3D post processing and contrast kinetics analysis. CONTRAST: Gadoterate meglumine, 20 ml COMPARISON: Bilateral breast MR from 01/26/2023 and 01/15/2022. Diagnostic left mammography from 11/09/2024. Multiple other mammographic studies, dating back to 2017. BREAST COMPOSITION: Heterogeneous fibroglandular tissue BACKGROUND PARENCHYMAL ENHANCEMENT: Moderate FINDINGS: Heterogeneous enhancement throughout both breasts is favored to represent benign increased background parenchymal enhancement. There is no suspicious mass or non-mass enhancement EITHER breast. No abnormally enlarged lymph nodes are identified in the visualized portions of either axilla. IMPRESSION: No MRI evidence of malignancy in EITHER breast. OVERALL FINAL ASSESSMENT: BI-RADS Category 1: Negative. RECOMMENDATION: Annual screening mammography and breast MRI are recommended. Dictated by: Lemuel Colby M.D. The radiology attending physician has personally reviewed this study, and had reviewed and/or edited this written report and agrees with it. Electronically signed by: Beatris Cerrato M.D. Jessica Odonnell NP IMG MRI PROCEDURES Final R esult * POCT lipid panel (03/20/2025 8:54 AM CDT) Cholesterol, POC 152 <200 MG/DL HDL, POC 50 >=40 mg/dL Triglycerides, POC 141 <=149 mg/dL LDL Cholesterol POC 74 <=129 mg/dL Chol/HDL Ratio, POC 1.5 NONE Non-HDL Cholesterol, POC 102 NONE mg/dL Cholesterol Total, POC 152 30 - 199 mg/dL Capillary blood 03/20/2025 8 :54 AM CDT Juan Henley MD POINT OF CARE TEST ORDERABLES Fi nal Result * Screening Mammogram Bilateral W Miranda (10/27/2024 11:28 AM EDGE SETTER) Anatomical Region Laterality Modality Breast Bilateral Mammography Narrative 10/30/2024 11:33 AM EDGE SETTER Mammogram Technique: Bilateral Digital Breast Tomosynthesis, Bilateral C-view 2D Screening mammogram. Views obtained: bilateral craniocaudal and bilateral mediolateral oblique. Computer Aided Detection was performed. Mammogram Findings: The present examination has been compared to prior imaging studies performed at [facility] on 02/24/2021, 07/30/2021, 07/27/2022 and 10/18/2023. [...] compared to prior imaging studies performed at [facility] on 02/24/2021, 07/30/2021,07/27/2022 and 10/18/2023. The [...] NP IMG MAMMO PROCEDURES Fin al Result from Last 3 Months or Most Recently Relevant to Health Maintenance Insurance [employer] CHOICE Care Teams Hearing Impaired Itinerant Teacher Relationship Specialty Start Date End Date Gloria Urbina MD [facility] [place] [address] [address] PCP - General Family Practice 09/19/24
--- OUTSIDE RECORDS SUMMARY | 2025-04-22 09:27 | XMS_ITS | Patient Health Record ---
Author Organization [facility] Address [address] [place] [address] Care Team Providers Care Final Inspector Truck Trailer Name Role Phone Carlitos AGUIRRE, Gloria Primary Care Provider Unavailable Amy Petty Unavailable [phone] Allergies Allergen (clinical drug ingredient) Drug/Non Drug Allergy documented on EMR Reaction Allergy Type Onset Date Status amoxicillin Amoxicillin Unknown Drug Allergy Act nieves aspirin Aspirin Unknown Drug Allergy Active ciprofloxacin Ciprofloxacin Unknown Drug Allergy Active clarithromycin Clarithromycin Unknown Drug Allergy Active erythromycin Erythromycin Unknown Drug Allergy A ctive Non-steroidal anti-inflammatory agent (FN) NSAIDs Unknown Drug Allergy Active Reason For Referral No Information Medications Medication SIG (Take, Route, Frequency, Duration) Notes Start Date End Date Status Cyclobenzaprine HCl ER 25 mg Active Rosuvastatin Calcium 10 MG Oral; Duration: 90 Days Active Co Q-10 200 MG TAKE 1 CAPSULE BY MO UTH DAILY Oral; Duration: 60 Days Active Jardiance 25 MG TAKE 1 TABLET BY REGIS TH EVERY MORNING Oral; Duration: 90 Days Active Ozempic (0.25 or 0.5 MG/DOSE ) 2 MG/3ML ADMINISTER 0.25 MG UNDER THE SKIN WEEKLY FOR 4 WEEKS Subcutaneous; Duration: 57 Days Active Rosuvastatin Calcium 10 MG Oral; Duration: 90 Days Active Famotidine 20 MG 1 tablet at bedtime as needed Orally Once a day Active Vitamin D3 1.25 MG (89359 UT) TAKE 1 CAP RAOUL BY MOUTH ONCE A WEEK Oral; Duration: 84 Days Active Social History Tobacco Use: Social History Observation Description Date Details (start date - stop date) Never Smoker NA - NA Sex Assigned At : Social History Observation Description Sex Assigned At Female Household Question Answer Notes Marital status: Number of adults in household: 2 Number of children in household: 4 triplets 4 daughters 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 Yes with Men only Tobacco Control (Standard) Question Answer Notes Tobacco use: Nonsmoker Additional Findings: Tobacco non-user Current no nsmoker AUDIT-C (Standard) Question Answer Notes Did you have a drink containing alcohol in the p ast year? No Problems Problem Type SNOMED Code ICD Code Onset Dates Problem Status W/U Status Risk Notes Problem Generalized anxiety disorder (17600023) RADHA (generalized anxiety disorder) (F41.1) Active confirmed Problem Moderate recurrent major depression (27626088) MDD (major depressive disorder), recurrent episode, moderate (F33.1) Active confirmed Problem Posttraumatic stress disorder (25133939) Chronic post-traumatic stress disorder (PTSD) (F43.12) Active confirmed Problem Vitamin D deficiency (53183220) Vitamin D deficiency (E55.9) Active confirmed Vital Signs Heart Rate 91 /min 12/07/2024 Blood pressure diastolic 89 mm Hg 12/07/2024 Weight-kg 116.85 kg 12/07/2024 Blood pressure systolic 133 mm Hg 12/07/2024 Weight 257.6 lbs 12/07/2024 Encounters Encounter Location Date Provider Diagnosis [facility] [employer] [place] [facility] [address] [address] 12/07/2024 Amy Malinda MDD (major depressive disorder), recurrent episode, moderate F33.1 ; RADHA (generalized anxiety disorder) F41.1 ; Vitamin D deficiency E55.9 and Chronic post-traumatic stress disorder (PTSD) F43.12 Assessments Encounter Date Diagnosis (ICD Code) Assessment Notes Treatment Notes Treatment Clinical Notes Section Notes 12/07/2024 RADHA (generalized anxiety disorder) (ICD-10 - F41.1) Generalized Anxiety Disorder: Care Instructions material was published, Learning About Generalized Anxiety Disorder material was published, Learning About Anxiety Disorders material was published, Learning About Transcranial Magnetic Stimulation (TMS) material was published 1. Depression PCP prescribed Lexapro 5 mg and patient did not take rx- has rx patient not sure if wants to take rx - Will consider rx options discuss and educated on Lexapro and Zoloft options continue therapy 2. anxiety 3. PTSD continue therapy 4. Vit D def PCP prescribed Vit D 50,000 units weekly seasonal Jul- December - helps SAD also- patient just filled 2 month supple and will follow up PCP discuss with patient may take low dose Vit D 1,000- units when not taking the 50,000 units to help depression December- Jul - patient will f/u PCP PCP labs and check VIT D levels Discussed and educated pt regarding benzodiazepines are generally not intended for prolonged use and that use can cause tolerance, dependence, depression, and associated memory issues including dementias (this list is not exhaustive). Benzodiazepine use is generally not recommended concurrently with pain medications and/or other controlled substances educated on all medications, benefits, side effects and risk, and educated on depression, anxiety, and ADHD, mood d/o and educated on compliance of medications, metabolic and movement d/o education appointment is, continue therapy discussion with patient about course of treatment and patient instructions. education on serotonin syndrome SSRI/SNRI side effects discussed including but not limited to, gastric upset, nausea, vomiting, diarrhea and/or constipation, weight changes, sexual side effects including loss of libido, increased suicidal thoughts/behaviors in children and young adults, and serotonin syndrome. websites http_s://www.nimh. nih.gov/health/top ics/mental-health- medications http_s://www.nain. org/Daevt-Xjvydv-N llness/Treatments/ Pfmlsc-Pzxxpo-Fzyz cations http_s://www.nain. org/Qhlqf-Wemxef-I llness/Mental-Heal th-Conditions http_s://Loctronix.com/depression /aaw-pcpwjjssr-vly oanoj-hg-rivhleebv n#treatments http__s://www.nimh .nih.gov/health/to pics/mental-health -medications http__s://www.nain .org/About-Mental- Illness/Treatments /Tacwvc-Krvddr-Gcb ications http_s://elda.nih. gov/publications/d rugfacts/cannabis- marijuana http_s://www.Transinsight/cannabi s-zlk-koptmmrp-mar ijuana-adhd/ Medication Management and Follow-Up - Plan: - Schedule follow-up appointments every 1-3 months to monitor the patient's response to the medication regimen. - Reinforce the importance of avoiding recreational drug use due to potential neurotoxicity and interactions with prescribed medications. 12/07/2024 MDD (major depressive disorder), recurrent episode, moderate (ICD-10 - F33.1) Preventing Depression From Coming Back: Care Instructions material was published, Depression Treatment: Care Instructions material was published, Seasonal Affective Disorder: Care Instructions material was published 1. Depression PCP prescribed Lexapro 5 mg and patient did not take rx- has rx patient not sure if wants to take rx - Will consider rx options discuss and educated on Lexapro and Zoloft options continue therapy 2. anxiety 3. PTSD continue therapy 4. Vit D def PCP prescribed Vit D 50,000 units weekly seasonal Jul- December - helps SAD also- patient just filled 2 month supple and will follow up PCP discuss with patient may take low dose Vit D 1,000- units when not taking the 50,000 units to help depression December- Jul - patient will f/u PCP PCP labs and check VIT D levels Discussed and educated pt regarding benzodiazepines are generally not intended for prolonged use and that use can cause tolerance, dependence, depression, and associated memory issues including dementias (this list is not exhaustive). Benzodiazepine use is generally not recommended concurrently with pain medications and/or other controlled substances educated on all medications, benefits, side effects and risk, and educated on depression, anxiety, and ADHD, mood d/o and educated on compliance of medications, metabolic and movement d/o education appointment is, continue therapy discussion with patient about course of treatment and patient instructions. education on serotonin syndrome SSRI/SNRI side effects discussed including but not limited to, gastric upset, nausea, vomiting, diarrhea and/or constipation, weight changes, sexual side effects including loss of libido, increased suicidal thoughts/behaviors in children and young adults, and serotonin syndrome. websites http_s://www.nimh. nih.gov/health/top ics/mental-health- medications http_s://www.nain. org/Rahji-Kzrsjq-E llness/Treatments/ Ceeeeh-Xqamkl-Xyom cations http_s://www.nain. org/Qyroe-Tsacjo-J llness/Mental-Heal th-Conditions http_s://psychcent Element Robot.com/depression /dpw-dvkgifssj-cjv apklt-lu-nziljhnmz n#treatments http__s://www.nimh .nih.gov/health/to pics/mental-health -medications http__s://www.nain .org/About-Mental- Illness/Treatments /Qxpybq-Rprxvj-Ajy ications http_s://elda.nih. gov/publications/d rugfacts/cannabis- marijuana http_s://www.Transinsight/cannabi c-tuv-gxgvldir-mar ijuana-adhd/ Medication Management and Follow-Up - Plan: - Schedule follow-up appointments every 1-3 months to monitor the patient's response to the medication regimen. - Reinforce the importance of avoiding recreational drug use due to potential neurotoxicity and interactions with prescribed medications. 12/07/2024 Vitamin D deficiency (ICD-10 - E55.9) Learning About Vitamin D material was published 1. Depression PCP prescribed Lexapro 5 mg and patient did not take rx- has rx patient not sure if wants to take rx - Will consider rx options discuss and educated on Lexapro and Zoloft options continue therapy 2. anxiety 3. PTSD continue therapy 4. Vit D def PCP prescribed Vit D 50,000 units weekly seasonal Jul- December - helps SAD also- patient just filled 2 month supple and will follow up PCP discuss with patient may take low dose Vit D 1,000- units when not taking the 50,000 units to help depression December- Jul - patient will f/u PCP PCP labs and check VIT D levels Discussed and educated pt regarding benzodiazepines are generally not intended for prolonged use and that use can cause tolerance, dependence, depression, and associated memory issues including dementias (this list is not exhaustive). Benzodiazepine use is generally not recommended concurrently with pain medications and/or other controlled substances educated on all medications, benefits, side effects and risk, and educated on depression, anxiety, and ADHD, mood d/o and educated on compliance of medications, metabolic and movement d/o education appointment is, continue therapy discussion with patient about course of treatment and patient instructions. education on serotonin syndrome SSRI/SNRI side effects discussed including but not limited to, gastric upset, nausea, vomiting, diarrhea and/or constipation, weight changes, sexual side effects including loss of libido, increased suicidal thoughts/behaviors in children and young adults, and serotonin syndrome. websites http_s://www.nimh. nih.gov/health/top ics/mental-health- medications http_s://www.nain. org/Rryot-Njdzjw-C llness/Treatments/ Medqyt-Nwvuom-Uajh cations http_s://www.nain. org/Rffag-Kztqta-R llness/Mental-Heal th-Conditions http_s://[employer]/depression /mlk-zdnmvttvw-vgl zptch-lk-fjalrgbtg n#treatments http__s://www.nimh .nih.gov/health/to pics/mental-health -medications http__s://www.nain .org/About-Mental- Illness/Treatments /Txxehb-Astsbv-Kgy ications http_s://elda.nih. gov/publications/d rugfacts/cannabis- marijuana http_s://wwwCuutio Software/cannabi f-wem-bsinqmle-mar ijuana-adhd/ Medication Management and Follow-Up - Plan: - Schedule follow-up appointments every 1-3 months to monitor the patient's response to the medication regimen. - Reinforce the importance of avoiding recreational drug use due to potential neurotoxicity and interactions with prescribed medications. 12/07/2024 Chronic post-traumatic stress disorder (PTSD) (ICD-10 - F43.12) Post-Traumatic Stress Disorder (PTSD): Care Instructions material was published 1. Depression PCP prescribed Lexapro 5 mg and patient did not take rx- has rx patient not sure if wants to take rx - Will consider rx options discuss and educated on Lexapro and Zoloft options continue therapy 2. anxiety 3. PTSD continue therapy 4. Vit D def PCP prescribed Vit D 50,000 units weekly seasonal Jul- December - helps SAD also- patient just filled 2 month supple and will follow up PCP discuss with patient may take low dose Vit D 1,000- units when not taking the 50,000 units to help depression December- Jul - patient will f/u PCP PCP labs and check VIT D levels Discussed and educated pt regarding benzodiazepines are generally not intended for prolonged use and that use can cause tolerance, dependence, depression, and associated memory issues including dementias (this list is not exhaustive). Benzodiazepine use is generally not recommended concurrently with pain medications and/or other controlled substances educated on all medications, benefits, side effects and risk, and educated on depression, anxiety, and ADHD, mood d/o and educated on compliance of medications, metabolic and movement d/o education appointment is, continue therapy discussion with patient about course of treatment and patient instructions. education on serotonin syndrome SSRI/SNRI side effects discussed including but not limited to, gastric upset, nausea, vomiting, diarrhea and/or constipation, weight changes, sexual side effects including loss of libido, increased suicidal thoughts/behaviors in children and young adults, and serotonin syndrome. websites http_s://www.nimh. nih.gov/health/top ics/mental-health- medications http_s://www.nain. org/Cnzcn-Rdckit-B llness/Treatments/ Coewcj-Nmqvpt-Stsi cations http_s://www.nain. org/Kkewc-Jnidkj-Y llness/Mental-Heal th-Conditions http_s://Loctronix.[employer]./depression /mck-ukpodsalf-oqf lontp-qo-nylirynjs n#treatments http__s://www.nimh .nih.gov/health/to pics/mental-health -medications http__s://www.nain .org/About-Mental- Illness/Treatments /Oboipt-Rmofhb-Eql ications http_s://elda.nih. gov/publications/d rugfacts/cannabis- marijuana http_s://www.Transinsight/cannabi b-eyy-mqmgzeob-mar ijuana-adhd/ Medication Management and Follow-Up - Plan: - Schedule follow-up appointments every 1-3 months to monitor the patient's response to the medication regimen. - Reinforce the importance of avoiding recreational drug use due to potential neurotoxicity and interactions with prescribed medications. 12/07/2024 Other Learning About Depression Screening material was printed 1. Depression PCP prescribed Lexapro 5 mg and patient did not take rx- has rx patient not sure if wants to take rx - Will consider rx options discuss and educated on Lexapro and Zoloft options continue therapy 2. anxiety 3. PTSD continue therapy 4. Vit D def PCP prescribed Vit D 50,000 units weekly seasonal Jul- December - helps SAD also- patient just filled 2 month supple and will follow up PCP discuss with patient may take low dose Vit D 1,000- units when not taking the 50,000 units to help depression December- Jul - patient will f/u PCP PCP labs and check VIT D levels Discussed and educated pt regarding benzodiazepines are generally not intended for prolonged use and that use can cause tolerance, dependence, depression, and associated memory issues including dementias (this list is not exhaustive). Benzodiazepine use is generally not recommended concurrently with pain medications and/or other controlled substances educated on all medications, benefits, side effects and risk, and educated on depression, anxiety, and ADHD, mood d/o and educated on compliance of medications, metabolic and movement d/o education appointment is, continue therapy discussion with patient about course of treatment and patient instructions. education on serotonin syndrome SSRI/SNRI side effects discussed including but not limited to, gastric upset, nausea, vomiting, diarrhea and/or constipation, weight changes, sexual side effects including loss of libido, increased suicidal thoughts/behaviors in children and young adults, and serotonin syndrome. websites http_s://www.nimh. nih.gov/health/top ics/mental-health- medications http_s://www.nain. org/Fvucs-Guclfo-H llness/Treatments/ Gpkmfk-Pfwcrv-Gzjd cations http_s://www.nain. org/Fsdqt-Tuoxkn-P llness/Mental-Heal th-Conditions http_s://[employer]/depression /lhb-lfaaukhpd-kkh ksunx-nz-ktblplksu n#treatments http__s://www.nimh .nih.gov/health/to pics/mental-health -medications http__s://www.nain .org/About-Mental- Illness/Treatments /Uzthqk-Efaxfk-Siy ications http_s://elda.nih. gov/publications/d rugfacts/cannabis- marijuana http_s://www.Transinsight/cannabi h-uiw-tpjzbtcb-mar ijuana-adhd/ Medication Management and Follow-Up - Plan: - Schedule follow-up appointments every 1-3 months to monitor the patient's response to the medication regimen. - Reinforce the importance of avoiding recreational drug use due to potential neurotoxicity and interactions with prescribed medications. Plan Of Treatment Pending Test Test Name Order Date UDT 12/07/2024 Insurance Providers Payer Name Payer Address Payer Phone Subscriber Number Group Number Insured Name Patient Relationship to Insured Coverage Start Date Coverage End Date [facility] [address] [place] [address] [id number] NicoleKaylie Self - patient is the insured Medical (General) History Medical History History ICD Code restless leg syndrome: Yes type 2 diabetes mellitus: Yes vitamin B12 deficiency: No vitamin D deficiency: Yes medical- heart attack 10/03/24, DM dxn 10/03 Lymphedema pain back surgery and kevin lower spine, back p ain, surgeries since age 14 years old, Surgical History Surgery Date(Month/Year) 1994 spinal fusion with rib graft and 7 inch kevin in lower spine 2004 endometriosis, and PCOS diagnosis and surgery 2005 emergency single 2008 planned Triplet , no fertility treatments 2009 hernia repair 2009 lithotripsy kidney stones 2010 uterine ablation 2012 abdominalplasty with hernia repairs 2018 lithotripsy kidney stones 2011, 2016, 2019 biopsies on breast and markers placed September 11, 2024 NSTEMI MINOCA heart attack, no blockage
--- OUTSIDE RECORDS SUMMARY | 2025-04-22 09:27 | XMS_ITS | Referral Summary ---
Author Organization [facility] Healthcare Address [address] [place] [address] Care Team Providers Care Exhibit Display Representative Name Role Phone Gloria Urbina MD Primary Care Provider Encounters Date Type Department Care Team Description 04/20/2025 Results Follow-Up [facility] [address] [place] [address] Yuki Callejas NP MRI Breast Bilateral W WO Contrast 04/20/2025 10:25 AM CDT - 04/20/2025 11:59 PM CDT Hospital Encounter [facility] ([facility]) [address] [place] [address] At high risk for breast cancer; Family history of breast cancer; Dense breast tissue Discharge Disposition: Discharge to home or self care 03/20/2025 9:15 AM CDT Office Visit [facility] Cardiology [address] [place] [address] Juan Henley MD Lipid screening (Primary Dx) from Last 3 Months Allergies Active Allergy [...] IN LEFT EYE FOUR TIMES DAILY. 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 Electronically signed by: Beatris Cerrato M.D. Narrative 04/20/2025 3:19 PM CDT EXAMINATION: [...] Multiple other mammographic studies, dating back to 2016. BREAST COMPOSITION: Heterogeneous fibroglandular tissue BACKGROUND PARENCHYMAL ENHANCEMENT: Moderate FINDINGS: Heterogeneous enhancement throughout both breasts is favored to represent benign increased background parenchymal enhancement. There is no suspicious mass or non-mass enhancement EITHER breast. No abnormally enlarged lymph nodes are identified in the visualized portions of either axilla. Procedure Note Beatris Cerrato MD - 04/20/2025 EXAMINATION: 1. MRI [...] Multiple other mammographic studies, dating back to 2016. BREAST COMPOSITION: Heterogeneous fibroglandular tissue BACKGROUND PARENCHYMAL [...] Capillary blood 03/20/2025 8 :54 AM CDT Jaun Henley MD POINT OF CARE TEST ORDERABLES Fi nal Result * Screening Mammogram Bilateral W Miranda (10/27/2024 11:28 AM ELECTRICAL APPRENTICE) Anatomical Region Laterality Modality Breast Bilateral Mammography Narrative 10/30/2024 11:33 AM ELECTRICAL APPRENTICE Mammogram Technique: Bilateral Digital Breast Tomosynthesis, Bilateral C-view 2D Screening mammogram. Views obtained: bilateral craniocaudal and bilateral mediolateral oblique. Computer Aided Detection was performed. Mammogram Findings: The present examination has been compared to prior imaging studies performed at [facility] on 02/24/2021, 07/30/2021, 07/27/2022 and [...] compared to prior imaging studies performed at [facility] on 02/24/2021, 07/30/2021,07/27/2022 and 10/18/2023. [...] Most Recently Relevant to Health Maintenance Insurance [employer] ACCESS CHOICE Care Teams Exhibit Display Representative Relationship Specialty Start Date End Date Gloria Urbina MD [facility] [facility] [address] [place] [address] PCP - General Family Practice 09/19/24
--- OUTSIDE RECORDS SUMMARY | 2025-04-22 09:27 | XMS_ITS | Patient Health Record ---
Author Organization [facility] Address [address] [place], [place] [address] Care Team Providers Care Back Tender Insulation Board Name Role Phone KYLEE Rahman Unavailable [phone] Answer, Declined Unavailable Unavailable SNOOK, MARIO Unavailable [phone] Allergies Allergen (clinical drug ingredient) Drug/Non Drug Allergy documented on EMR Reaction Allergy Type Onset Date Status Anti-Inflammatory Enzyme Unknown Drug Allergy Active Tape Unknown Allergy Active Reason For Referral No Information Encounters Encounter Location Date Provider Diagnosis [facility] [address] [place], [place] [id number] 06/19/2024 MARIO SNOOK Plantar fascial fibromatosis M72.2 ; Unequal limb length (acquired), unspecified tibia and fibula M21.769 ; Pain in right foot M79.671 and Left foot pain M79.672 [facility] [place] [address] [place] [id number] 07/31/2024 MARIO SNOOK Plantar fascial fibromatosis M72.2 ; Unequal limb length (acquired), unspecified tibia and fibula M21.769 ; Pain in right foot M79.671 and Left foot pain M79.672 [facility] [address] [place] [id number] 09/04/2024 MARIO SNOOK Plantar fascial fibromatosis M72.2 [...] and the use of orthotic devices. [facility] 09/[facility] Unequal limb length (acquired), [...] Insured Coverage Start Date Coverage End Date [facility] ATTN CLAIMS [address] [place] [address] [id number] LEOPOLDO BECK Self - patient is the insured
--- OUTSIDE RECORDS SUMMARY | 2025-04-22 09:28 | XMS_ITS | Encounter Summary ---
Author Organization [facility] Address [address] [place] [address] Care Team Providers Care Media Developer Name Role Phone Gloria Urbina MD Primary Care Provider Reason for Referral * MRI/CAT/PET Scan (Routine) - Closed Specialty Diagnoses / Procedures Referred By Contac t Referred To Contact Radiology Diagnoses Family history of breast cancer Dense breast tissue Procedures MRI Breast Bilateral W WO Contrast Jessica Odonnell NP [address] [facility] [place] [phone] [place] [address] Phone: tel: fax: [address] [phone] Referral ID Status Reason Start Date Expiration Date Visits Re quested Visits Authorized [id number] Closed 10/27/2024 11/26/2025 1 1 Reason for Visit * MRI/CAT/PET Scan (Routine) - Closed Specialty Diagnoses / Procedures Referred By Contac t Referred To Contact Radiology Diagnoses Family history of breast cancer Dense breast tissue Procedures MRI Breast Bilateral W WO Contrast Jessica Odonnell NP [address] [facility] [place] [phone] [place] [address] Phone: tel: fax: [address] [phone] Referral ID Status Reason Start Date Expiration Date Visits Re quested Visits Authorized [id number] Closed 10/27/2024 11/26/2025 1 1 Encounter Details Date Type Department Care Team (Latest Contact Info) Description 04/20/2025 10:25 AM CDT - 04/20/2025 11:59 PM CDT Hospital Encounter [facility] [address] [place], [place] [id number] At high risk for breast cancer; Family history of breast cancer; Dense breast tissue Discharge Disposition: Discharge to home or self care Social History Tobacco Use Types Packs/Day Years Used Date Smoking Tobacco: Never Comments No Sex and Gender Information Value Date Recorded Sex Assigned at Not on file Legal Sex Female 1:01 PM CDT Gender Identity Female 07/22/2020 9:42 AM CDT Sexual Orientation Straight 07/22/2020 9: 42 AM CDT documented as of this encounter Medications at Time of Discharge cetirizine (ZyrTEC) 10 mg tablet Take 1 tablet (10 mg total) by mouth daily cholecalciferol (VITAMIN D-3) 50,000 unit capsule Take 1 capsule (50,000 Units total) by mouth once a week 12/15/2022 coenzyme Q10 200 mg capsule Take 1 capsule (200 mg total) by mouth daily cyclobenzaprine (FLEXERIL) 10 mg tablet cyclobenzaprine 10 mg tablet TAKE 1 TABLET BY MOUTH THREE TIMES DAILY NEEDED FOR MUSCLE SPASM empagliflozin (JARDIANCE) 25 mg tablet 1 tablet (25 mg total) daily famotidine (PEPCID) 20 mg tablet Take 1 tablet (20 mg total) by mouth 2 (two) times a day as needed for heartburn fluticasone propionate (FLONASE) 50 mcg/actuation nasal spray SHAKE LIQUID AND USE 1 SPRAY IN EACH NOSTRIL TWICE DAILY montelukast (SINGULAIR) 10 mg tablet Take 1 tablet (10 mg total) by mouth every 30 (thirty) days 08/31/2018 moxifloxacin (VIGAMOX) 0.5 % ophthalmic solution moxifloxacin 0.5 % eye drops INSTILL 1 DROP IN LEFT EYE FOUR TIMES DAILY. [id number] -Lmfolate-algal 27 mg iron-1.13 mg-581.92 mg capsule Take by mouth rosuvastatin (CRESTOR) 10 mg tablet TAKE 1 TABLET(10 MG) BY MOUTH DAILY 90 tablet 01/30/2025 documented as of this encounter Discharge Disposition Disposition Code Departure Means Destination Discharge to home or self care documented in this encounter Plan of Treatment Not on file documented as of this encounter Procedures Procedure Name Priority Date/Time Associated Diagnosis Comments MRI BREAST BILATERAL W WO CONTRAST Schedule Routine, Read Routine (OP Routine) 04/20/2025 12:16 PM CDT At high risk for breast cancer Family history of breast cancer Dense breast tissue documented in this encounter Results * MRI Breast Bilateral W WO [...] NP IMG MRI PROCEDURES Final R esult documented in this encounter Visit Diagnoses Diagnosis At high risk for breast cancer Family history of breast cancer Family history of malignant neoplasm of breast Dense breast tissue documented in this encounter Administered Medications Inactive Administered Medications - up to 3 most recent administrations Medication Order MAR Action Action Date Dose Rate Site gadoterate meglumine injection 20 mL 20 mL, intravenous, Once in imaging, contrast, Starting on Wed04/20/25 at 1156, For 1 dose Contrast Given 04/20/2025 12:15 PM CDT 20 mL documented in this encounter Orders Medications Ordered That Tristan ht Not Have Been Administered Count Last Ordered Date First Ordered Date gadoterate meglumine injection 20 mL 1 04/10 documented in this encounter Care Teams Media Developer Relationship Specialty Start Date End Date Gloria Urbina MD [address] [facility] [place] [address] [address] PCP - General Family Practice 09/19/24 documented as of this encounter
--- OUTSIDE RECORDS SUMMARY | 2025-04-22 09:28 | XMS_ITS | Encounter Summary ---
Author Organization [facility] Address [address] [facility] [place] [address] Care Team Providers Care Community Service Worker Name Role Phone Renetta Vasquez MD Primary Care Provider Un available Encounter Details Date Type Department Care Team (Late st Contact Info) Description 08/12/2023 Lab Requisition [facility] - DermPath Lab [address] [facility] [place] [phone] Shavonne Anders MD [address] [facility] [address] [place] [address] Social History Tobacco Use Types Packs/Day Years Used Date Smoking Tobacco: Never Smokeless Tobacco: Never Alcohol Use Standard Drinks/Week Comments Yes 0 (1 standard drink = 0.6 oz pur e alcohol) rarely Comments No Sex and Gender Information Value [...] PM CDT) Case Report Dermatopathology Report Case: [id number] Authorizing Provider: Shavonne Anders MD Collected: 08/12/2023 01:55 PM Ordering Location: [facility] Derm[facility] Lab Received: 08/13/2023 01:19 PM Pathologist: Alexia Rogers MD Specimen: Skin, chin 3:23 PM [facility] DERMATOPATHOLOGY [facility]ORAT[facility] Final Diagnosis Specimen A. 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 The specimen consists of a shave biopsy measuring 5x3x1 mm. Jar 0. 3:23 PM [facility] DERMATOPATHOLOGY [facility]OR[facility]ORY Microscopic Description Specimen [...] larger lesion, these findings may not be lifeline representatives of the entire lesion. Clinicopathologic correlation is recommended. 3:23 PM [facility] DERMATOPATHOLOGY [facility]ORAT[facility] Disclaimer An external and internal positive and negative controls are appropriate for the histochemical, immunohistochemical and immunofluorescence stain(s) in this case (if any), except where stated explicitly. The performance characteristics of the stain(s) cited in this report were developed and its performance characteristic determined by the Dermatopathology Laboratory at [facility], directed by Dr. Kelly Crane. These tests need not be, and therefore are not, approved by the [place] Food and Drug Administration. The tests are used for clinical purposes. Billing Codes Specimen Charges Stain Charges 71623 1 3 3:23 PM [facility] DERMATOPATHOLOGY [facility]ORY Embedded Images 3 3:23 PM [facility] DERMATOPATH[facility]Y [facility] Pathology/Cytolo gy TISSUE SPECIMEN FROM SKIN / Unknown 08/12/2023 1:55 PM CDT 08/13/2023 1:19 PM CDT us Shavonne Anders MD LAB - PATHOLOGY/CYTOLOGY ORD ERABLES Final Result DERMATOPATHOLOGY LABORATORY [facility] - Department of Dermatology [facility] Medicine [address] [place] [address], [address] [phone] documented in this encounter Visit Diagnoses Not on filedocumented in this encounter Care Teams Community Service Worker Relationship Specialty Start Date End Date Renetta Vasquez MD [address] [place] [address] PCP - General 12/29/19 documented as of this encounter
--- OUTSIDE RECORDS SUMMARY | 2025-04-22 09:28 | XMS_ITS | Clinical Summary ---
Author Organization [facility] Address [address] [facility] [place] [address] Care Team Providers Care Flea Market Seller Name Role Phone Renetta Vasquez MD Primary Care Provider Un available Source Comments [facility],non-owned Affiliates and Associated Physician Practices is amultiple site organization consisting of ambulatory clinics and hospital sitesin [place], [place], [place] and [place]. This disclosure is being madepursuant to the Care Everywhere program and may not contain all information available regarding this patient. Last updated 18.[facility] Allergies Active Allergy Reactions Criticality Noted Date [...] document. Alwaysverify current medications with the patient. 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 Respiratory Rate 21 04/03/2019 1:10 PM CDT Oxygen Saturation 95% 04/03/2019 1:10 PM CDT Inhaled Oxygen Concentration - - Weight 104.8 kg (231 lb) 12/19/2019 4:00 PM CDT Height 165.1 cm (5' 5) 12/19/2019 4:00 PM CDT Body Mass Index 38.44 12/19/2019 4:00 PM CDT Plan of Treatment Health Maintenance Due Date Last Done Comments ALETHA (AGES 45-75) - COLON CA SCREENING 1980 CT COLONOGRAPHY - COLON CA SCREENING 1980 FIT - COLON CA SCREENING 1979 FLEX SIG - COLON CA SCREENING 1979 LIPID TESTING 1979 HIV SCREENING 1994 HEPATITIS C SCREENING 05/25/1997 DTAP/TDAP/TD VACCINES (1 - Tdap) 1998 HEPATITIS B VACCINE (1 of 3 - 19+ 3-dose series) 1998 PAP SMEAR 2000 HPV VACCINE (1 - 3-dose SCDM series) 2006 MAMMOGRAM 08/15/2020 08/15/2018 COVID-19 VACCINE ( season) 2024 08/30/2022, 11/05/2021, 12/31/2020, Additional history exists DEPRESSION SCREENING 10/11/2024 INFLUENZA VACCINE (#1) 2025 , 08/15/2022, 10/14/2021, Additional history exists COLON MONITORING 04/03/2029 04/03/2019, , 04/03/2019 COLONOSCOPY - COLON CA SCREENING 04/03/2029 04/03/2019, 04/03/2019, 04/03/2019 Colorectal Cancer Screening 04/03/2029 ZOSTER VACCINE (1 of 2) 2029 HIB VACCINE Aged Out No longer eligi ble based on patient's age to complete this topic MENINGOCOCCAL (Group B) VACCINE SHARED DECISION-MAKING Aged Out No longer eligible based on patient's age to complete this topic MENINGOCOCCAL GROUPS A/C/Y/W VACCINE Aged Out No longer eligible based on patient's age to complete this topic PNEUMOCOCCAL VACCINE Aged Out No long er eligible based on patient's age to complete this topic Procedures Procedure Name Priority Date/Time Associated Diagnosis Comments ENDOSCOPY, COLON, DIAGNOSTIC Routine 04/03/2019 11:38 AM CDT Chronic diarrhea from Last 3 Months or Most Recently Relevant to Health Maintenance Results * ENDOSCOPY, COLON, DIAGNOSTIC (04/03/2019 11:38 AM [...] bowel preparation was evaluated using the BBPS ([place] Bowel Preparation Scale) with scores of: Right [...] previously scheduled. Procedure Code(s): --- Professional --- 47374, Colonoscopy, flexible; with biopsy, single or multiple --- Technical --- 71733, Colonoscopy, flexible; with biopsy, single or multiple Diagnosis Code(s): --- Professional --- K52.9, Noninfective gastroenteritis and colitis, unspecified --- Technical --- K52.9, Noninfective gastroenteritis and colitis, unspecified CPT copyright 2017 [employer]. All rights reserved. The codes documented in this report are preliminary and upon energy efficient site manager review may be revised to meet current compliance requirements. Adilene Templeton MD Adilene Templeton MD 04/03/2019 12:54:48 PM Number of Addenda: 0 Note Initiated On: 04/03/2019 11:38 AM [facility] ENDOSCOPY 04/03/2019 11:3 8 AM CDT Adilene Templeton MD GI PROCEDURE ORDERABLES E dited Result - Final [facility] ENDOSCOPY from Last 3 Months or Most Recently Relevant to Health [place] [address] [facility] * Guarantor: [employer] Account Type Relation to Patient Date of Phone Billing Address Personal/Family [address] [facility] [address] ANTHEM Care Teams Flea Market Seller Relationship Specialty Start Date End Date Renetta Vasquez MD [address] [address] PCP - General 12/29/19
--- OUTSIDE RECORDS SUMMARY | 2025-04-22 09:28 | XMS_ITS | Data Portability ---
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 Plan of Treatment Reminders Order Date Submit Date Provider Last Modified By Organization Details Last Modified Time Details Appointments None recorded. Lab urinalysis, dipstick 2022 023 [email or web address] [address], [address], [place], [address], 3 12:38:23 culture, urine 2022 023 [facility] (Lab), [address] [facility], [place], [address], 3 06:50:27 urinalysis, dipstick [email or web address] [place], [place] [id number] [address], [address], [place], [address], 3 15:59:34 urinalysis, dipstick 2022 023 [address], [address], [place], [address], 3 15:25:08 Referral None recorded. Procedures None recorded. Surgeries None recorded. Imaging US, pelvis 2022 023 [email or web address] [address], [address], [place], [address], 3 19:06:01 US, transvagina l 2022 023 [email or web address] [address], [address], [place], [address], 3 19:06:01 US, pelvis, complete 2022 023 [facility] Scheduling, [address], [place], [address], 4 12:46:08 Medication Orders Macrobid 100 mg capsule 2022 023 [id number], [address] [facility], [place], [place], [id number], 5 09:26:08 Patient TargetsNo targets recorded. Patient InstructionsNo instructions recorded. Reason for Referral None Reported. Results Created Date Observation Date Name Description Value Unit Range Abnormal Flag Note LastModifiedBy Organization Detail LastModifiedTime 04/28/20 23 04/28/2023 URINA LYSIS , WITH MICRO SCOPI C, REFLE X CULTU RE color, urine Light Yellow Not Available Not Available 11:55:44 04/28/20 23 04/28/2023 URINA LYSIS , WITH MICRO SCOPI C, REFLE X CULTU RE clarity, urine Turbid abnormal Not Available Not Available 11:55:44 04/28/20 23 04/28/2023 URINA LYSIS , WITH MICRO SCOPI C, REFLE X CULTU RE specific gravity, urine 1.025 . 1.005- 1.035 Not Available Not Available 04/30/2023 11:55:44 04/28/20 23 04/28/2023 URINA LYSIS , WITH MICRO SCOPI C, REFLE X CULTU RE pH, urine 5.5 . 5.0-7. 0 Not Available Not Available 04/30/2023 11:55:44 04/28/20 23 04/28/2023 URINA LYSIS , WITH MICRO SCOPI C, REFLE X CULTU RE protein, UA Negati ve mg/dL negati ve, - Not Available Not Available 04/30/2023 11:55:44 04/28/20 23 04/28/2023 URINA LYSIS , WITH MICRO SCOPI C, REFLE X CULTU RE glucose, urine Normal mg/dL negati ve Not Available Not Available 04/30/2023 11:55:44 04/28/20 23 04/28/2023 URINA LYSIS , WITH MICRO SCOPI C, REFLE X CULTU RE ketones, urine Negati ve mg/dL negati ve Not Available Not Available 04/30/2023 11:55:44 04/28/20 23 04/28/2023 URINA LYSIS , WITH MICRO SCOPI C, REFLE X CULTU RE bilirubin, urine Negati ve negati ve Not Available Not Available 04/30/2023 11:55:44 04/28/20 23 04/28/2023 URINA LYSIS , WITH MICRO SCOPI C, REFLE X CULTU RE blood, urine Negati ve negati ve Not Available Not Available 04/30/2023 11:55:44 04/28/20 23 04/28/2023 URINA LYSIS , WITH MICRO SCOPI C, REFLE X CULTU RE nitrite, urine Negati ve negati ve Not Available Not Available 04/30/2023 11:55:44 04/28/20 23 04/28/2023 URINA LYSIS , WITH MICRO SCOPI C, REFLE X CULTU RE leukocyte esterase, urine 75 say/u L negati ve abnormal Not Available Not Available 04/30/2023 11:55:44 04/28/20 23 04/28/2023 URINA LYSIS , WITH MICRO SCOPI C, REFLE X CULTU RE urobilinogen , urine Normal mg/dL normal , <2.0 Not Available Not Available 04/30/2023 11:55:44 04/28/20 23 04/28/2023 URINA LYSIS , WITH MICRO SCOPI C, REFLE X CULTU RE RBC, urine 0-2 /hpf none, 0-2 Not Available Not Available 04/30/2023 11:55:44 04/28/20 23 04/28/2023 URINA LYSIS , WITH MICRO SCOPI C, REFLE X CULTU RE WBC, urine 6-9 /hpf none, 0-5 abnormal Not Available Not Available 04/30/2023 11:55:44 04/28/20 23 04/28/2023 URINA LYSIS , WITH MICRO SCOPI C, REFLE X CULTU RE squamous epithelial cells, urine Modera te /hpf none abnormal Not Available Not Available 11:55:44 04/28/20 23 04/28/2023 URINA LYSIS , WITH MICRO SCOPI C, REFLE X CULTU RE bacteria, urine Trace /hpf none abnormal Not Available Not Available 11:55:44 04/28/20 23 04/28/2023 URINA LYSIS , WITH MICRO SCOPI C, REFLE X CULTU RE hyaline cast, urine None /lpf none, 0-2 Not Available Not Available 04/30/2023 11:55:44 04/28/2004/28/2023 URINA LYSIS , WITH MICRO SCOPI C, REFLE X CULTU RE mucus, urine Modera te /hpf none, trace, few abnormal Urine Cultu re to follo w. Not Available Not Available 04/30/2023 11:55:44 04/28/2004/28/2023 CULTU RE: URINE result report SEE RESULT S BELOW Test: Cultu re: Urine Speci men Type: Urine Speci men Date: 2022 4:34 PM Resul t Date: 2022 10:51 AM Resul t Statu s: Final resul t Abnor mal: No Resul ting Lab: [facility] [address] [facility] [address] Tel: CULTU RE ----- ----- ----- --- Cultu re resul t (>=3 organ isms prese nt) indic ates possi ble conta minat ion. Repea t cultu re if sympt oms indic ate. Not Available Not Available 04/30/2023 11:55:45 04/28/20 23 04/28/2023 urina lysis , dipst ick Leukocytes ++ Not Available [facility] celestina [address], [place], [address], 04/28/2023 15:24:42 04/28/20 23 04/28/2023 urina lysis , dipst ick Protein trace Not Available [address], [place], [address], 04/28/2023 15:24:42 04/28/20 23 04/28/2023 urina lysis , dipst ick pH 5 Not Available [address], [place], [address], 04/28/2023 15:24:42 04/28/20 23 04/28/2023 urina lysis , dipst ick Blood + Not Available [address], [place], [address], 04/28/2023 15:24:42 04/28/20 23 04/28/2023 urina lysis , dipst ick Specific [place] 1.025 Not Available [facility] [address], [place], [address], 04/28/2023 15:24:42 05/17/20 23 05/17/2023 URINA LYSIS , WITH MICRO SCOPI C, REFLE X CULTU RE color, urine Yellow Not Available Not A vailable 05/18/2023 04:22:17 05/17/20 23 05/17/2023 URINA LYSIS , WITH MICRO SCOPI C, REFLE X CULTU RE clarity, urine Clear Not Available Not Available 05/2023 04:22:17 05/17/20 23 05/17/2023 URINA LYSIS , WITH MICRO SCOPI C, REFLE X CULTU RE specific gravity, urine 1.026 . 1.005- 1.035 Not Available Not Available 05/18/2023 04:22:17 05/17/20 23 05/17/2023 URINA LYSIS , WITH MICRO SCOPI C, REFLE X CULTU RE pH, urine 7.0 . 5.0-7. 0 Not Available Not Available 05/18/2023 04:22:17 05/17/20 23 05/17/2023 URINA LYSIS , WITH MICRO SCOPI C, REFLE X CULTU RE protein, UA 20 mg/dL negati ve, 10-20 Not Available Not Available 05/18/2023 04:22:17 05/17/20 23 05/17/2023 URINA LYSIS , WITH MICRO SCOPI C, REFLE X CULTU RE glucose, urine Normal mg/dL negati ve Not Available Not Available 05/18/2023 04:22:17 05/17/20 23 05/17/2023 URINA LYSIS , WITH MICRO SCOPI C, REFLE X CULTU RE ketones, urine Negati ve mg/dL negati ve Not Available Not Available 05/18/2023 04:22:17 05/17/20 23 05/17/2023 URINA LYSIS , WITH MICRO SCOPI C, REFLE X CULTU RE bilirubin, urine Negati ve negati ve Not Available Not Available 05/18/2023 04:22:17 05/17/20 23 05/17/2023 URINA LYSIS , WITH MICRO SCOPI C, REFLE X CULTU RE blood, urine Negati ve negati ve Not Available Not Available 05/18/2023 04:22:17 05/17/20 23 05/17/2023 URINA LYSIS , WITH MICRO SCOPI C, REFLE X CULTU RE nitrite, urine Negati ve negati ve Not Available Not Available 05/18/2023 04:22:17 05/17/20 23 05/17/2023 URINA LYSIS , WITH MICRO SCOPI C, REFLE X CULTU RE leukocyte esterase, urine Negati ve say/u L negati ve Not Available Not Available 05/18/2023 04:22:17 05/17/20 23 05/17/2023 URINA LYSIS , WITH MICRO SCOPI C, REFLE X CULTU RE urobilinogen , urine Normal mg/dL normal , <2.0 Not Available Not Available 05/18/2023 04:22:17 05/17/20 23 05/17/2023 URINA LYSIS , WITH MICRO SCOPI C, REFLE X CULTU RE RBC, urine 0-2 /hpf none, 0-2 Not Available Not Available 05/18/2023 04:22:17 05/17/20 23 05/17/2023 URINA LYSIS , WITH MICRO SCOPI C, REFLE X CULTU RE WBC, urine 0-5 /hpf none, 0-5 Not Available Not Available 05/18/2023 04:22:17 05/17/20 23 05/17/2023 URINA LYSIS , WITH MICRO SCOPI C, REFLE X CULTU RE squamous epithelial cells, urine Few /hpf none abnormal Not Available Not Availabl e 05/18/2023 04:22:17 05/17/20 23 05/17/2023 URINA LYSIS , WITH MICRO SCOPI C, REFLE X CULTU RE bacteria, urine Trace /hpf none abnormal Not Available Not Available 05/2023 04:22:17 05/17/20 23 05/17/2023 URINA LYSIS , WITH MICRO SCOPI C, REFLE X CULTU RE hyaline cast, urine None /lpf none, 0-2 Not Available Not Available 05/18/2023 04:22:17 05/17/20 23 05/17/2023 URINA LYSIS , WITH MICRO SCOPI C, REFLE X CULTU RE mucus, urine Many /hpf none, trace, few abnormal Urine Cultu re not perfo rmed per refle x prosper col. Not Available Not Available 05/18/2023 04:22:17 05/17/20 23 05/17/2023 urina lysis , dipst ick Leukocytes trace Not Available [facility] o[facility] [address], [place], [address], 05/17/2023 15:58:59 05/17/20 23 05/17/2023 urina lysis , dipst ick Nitrite negati ve Not Available [facility], [place], [address], 05/17/2023 15:58:59 05/17/20 23 05/17/2023 urina lysis , dipst ick Protein trace Not Available [address], [place], [address], 05/17/2023 15:58:59 05/17/20 23 05/17/2023 urina lysis , dipst ick Blood trace Not Available [address], [place], [address], 05/17/2023 15:58:59 05/17/20 23 05/17/2023 urina lysis , dipst ick Specific [place] 1.020 Not Available [facility] [address], [place], [address], 05/17/2023 15:58:59 05/17/20 23 05/17/2023 urina lysis , dipst ick Glucose normal Not Available [address], [place], [address], 05/17/2023 15:58:59 09/11/20 23 09/11/2023 urina lysis , dipst ick Leukocytes +2 Not Available [facility] [address], [place], [address], 09/11/2023 12:37:23 09/11/20 23 09/11/2023 urina lysis , dipst ick Nitrite normal Not Available [address], [place], [address], 09/11/2023 12:37:23 09/11/20 23 09/11/2023 urina lysis , dipst ick Urobilinogen normal Not Available [facility] [address], [place], [address], 09/11/2023 12:37:23 09/11/20 23 09/11/2023 urina lysis , dipst ick Protein trace Not Available [address], [place], [address], 09/11/2023 12:37:23 09/11/20 23 09/11/2023 urina lysis , dipst ick pH 7 Not Available [address], [place], [address], 09/11/2023 12:37:23 09/11/20 23 09/11/2023 urina lysis , dipst ick Specific [place] 1.015 Not Available [facility] [address], [place], [address], 09/11/2023 12:37:23 09/11/20 23 09/11/2023 urina lysis , dipst ick Ketone normal Not Available [address], [place], [address], 09/11/2023 12:37:23 09/11/20 23 09/11/2023 urina lysis , dipst ick Bilirubin normal Not Available [facility] [address], [place], [address], 09/11/2023 12:37:23 09/11/20 23 09/11/2023 urina lysis , dipst ick Glucose normal Not Available [address], [place], [address], 09/11/2023 12:37:23 09/11/20 23 09/11/2023 urina lysis , dipst ick Appearance normal Not [facility] [address], [place], [address], 09/11/2023 12:37:23 09/11/20 23 09/11/2023 urina lysis , dipst ick Color normal Not Available [address], [place], [address], 09/11/2023 12:37:23 09/13/20 23 09/13/2023 CULTU RE: URINE result report SEE RESULT S BELOW Test: Cultu re: Urine Speci men Sourc e: Urine Voide d Speci men Type: Urine Speci men Date: 2022 3:45 PM Resul t Date: 2022 5:45 AM Resul t Statu s: Final resul t Abnor mal: No Resul ting Lab: [facility] [address] [address] Tel: CULTU RE ----- ----- ----- --- No growt h in 1 day (dete ction level of 10,00 0 colon ies / ml.) Not Available Not Available 09/15/2023 06:50:26 11/09/19 25 11/09/2024 IMAGE GUIDE [...] Scree n: [place], [place] Speci men: Grant ramirezg Pap - Image d, Cervi x STATE MENT OF ADEQU ACY: Satis facto ry for evalu ation Trans forma tion zone compo nent prese nt ----- ----- ----- ----- ----- ----- ----- ----- ----- ----- ----- ----- ----- ----- ----- ----- ----- ---- FINAL DIAGN OSIS: Negat nieves for Intra epith elial Manda brunner or Chastity camarillo (NIL) . 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 Not Available Not Available 11/14/2024 16:48:43 09/20/20 23 09/20/2023 US, hugo s No observ ation record ed. [email or web address] [address], [place], [address], 09/20/2023 18:13:11 09/20/20 23 09/20/2023 US, trans vagin al No observ ation record ed. [email or web address] [address], [place], [address], 09/20/2023 18:13:03 09/20/20 23 09/20/2023 US, pelvi s No observ ation record ed. LISA Mony [address], [place], [address], 09/28/2023 12:51:11 Result Notes None recorded. 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 15:18:[address] Concept Completed 201507/21/2021 Encntr for brainer exam (general ) (routine ) w/o abn findings ;Practic e ID: 0001 Diane Dylan rodriguez [facility] 15:18:51 Deep pain on intercou rse 912936940 Completed 201707/21/2021 Deep dyspareu mirna;Prac mariam ID: 0001 Diane Dylan [facility] 15:18:40 Pelvic and perineal pain 321330397 Completed 201707/21/2021 Pelvic and perineal pain;Pra ctice ID: 0001 Diane rodriguez [facility] 15:18:47 Urinary tract infectio us disease 09090751 Completed 201707/21/2021 Urinary tract infectio n, site not specifie d;Practi ce ID: 0001 Diane rodriguez [facility] 15:18:53 Asymptom [facility] microsco pic hematuri a [id number] 321385 Completed 201707/21/2021 [facility];Practi ce ID: 0001 Diane Richardson [facility] 15:18:39 Pregnanc y test negative 194460056 Completed 201707/21/2021 Encounte r for pregnanc y test, result negative ;Practic e ID: 0001 Diane Rcihardson [facility] 15:18:48 Blood leukocyt e number above referenc e range 230300510 Completed 201907/21/2021 Elevated white blood cell count, unspecif ied;Prac mariam ID: 0001 Diane Richardson [facility] 15:18:45 History of urinary stone 892570609 Completed 201907/21/2021 Personal history of urinary calculi; Practice ID: 0001 Diane Richardson [facility] 15:18:[address] Concept Completed 201707/21/2021 Encntr for general adult medical exam w/o abnormal findings ;Recorde d Elsewher e: No Locat ion: Jose Elias claros [facility] S ource: EHR Pipe Layer Helper trevor: N Practi ce ID: 0001 Dejon lable Time: 08:30:00 AM Diane Richardson [facility] 15:18:50 Problem Notes None recorded. Procedures Surgical History Date Name Laterality Status Provider Name and Address Organization Details Recorded Time 10/26/19 Date of Last Mammogram completed ABDULKADIR Jacob [facility] 11/09/2024 09:39:57 10/07/20 20 Date of Last Pap Smear completed Diane Richardson [facility] 07/21/2021 15:21:10 10/11/19 20 biopsy of breast completed Anabelle Craig [facility] 09/11/2023 13:34:33 05/11/20 18 Date of Last Colonoscopy completed Fabiola Blount [facility] 04/28/2023 15:22:35 10/11/19 18 [facility]ripsy [facility] 09/11/2023 13:32:07 10/11/19 17 biopsy of breast completed Anabellemena Craig [facility] 09/11/2023 13:34:51 10/11/19 12 Breast Biopsy [facility] 09/11/2023 13:35:07 10/11/19 12 Abdominoplasty completed Anabellemena Craig [facility] 09/11/2023 13:30:10 10/11/19 11 Endometrial Ablation completed Anabellemena Craig [facility] 09/11/2023 13:33:58 10/11/19 10 lithotripsy completed Anabellemena Craig [facility] 09/11/2023 13:33:25 10/11/19 09 Hernia repair w/mesh completed Anabellemena Craig [facility] 09/11/2023 13:30:17 08/09/20 08 section completed Anabelle Craig [facility] 09/11/2023 13:32:37 08/18/20 06 section completed Anabellemena Craig [facility] 09/11/2023 13:32:29 10/11/19 05 Laparoscopy completed Anabellemena Craig [facility] 09/11/2023 13:35:38 10/11/18 95 lumbar spinal fusion completed Anabelle Craig [facility] 09/11/2023 13:31:56 Endometrial Ablation completed [facility] 11/09/2024 09:35:06 Laparoscopy completed [facility] 11/09/2024 09:35:06 Abdominoplasty completed [facility] 11/09/2024 09:35:06 Breast Biopsy completed [facility] 11/09/2024 09:35:06 Imaging Results None recorded. Procedure Notes None recorded. Medical Equipment None Reported. Allergies Allergen ID Allergen Name Allergen Category Reaction Reaction Severity Criticality Documentation Date Start Date Code Code System Note Provider Name and Address Organization Details Recorded Time 92160 ciproflox acin medicatio n diarrhea Not available Not available 09/27/2020 2551 RxNorm Smitha [facility] 3 16:02:14 2005 Non-stero idal anti-infl ammatory agent (product) medicatio n Not available Not available Not available 06/21/2020 29228 005 SNOMED FACE SWEROSELYN De La Cruz [facility] 3 16:02:30 2291 aspirin medicatio n Not available Not available Not available 07/17/2020 1191 RxNorm FACE IVANA De La [facility] 3 16:02:24 2292 Cipro medicatio n Not available Not available Not available 07/17/202004863 3 RxNorm Diane Richardson [facility] 1 16:42:24 2293 clarithro mycin medicatio n Not available Not available Not available 07/17/202029875 RxNorm Estefany Hawk [facility] 0 09:43:54 2294 erythromy cinthia medicatio n vomiting Not available Not available 07/17/2020 4053 RxNorm Estefany rodriguez, [facility] 0 09:44:00 2295 wheat gluten extract food Not available Not available Not available 07/17/2020 15293 81 RxNorm Estefany rodriguez, [facility] 0 09:44:06 2296 ibuprofen medicatio n Not available Not available Not available 07/17/2020 5640 RxNorm Estefany Hawk [facility], [facility] 0 09:44:11 2297 midazolam medicatio n Not available Not available Not available 07/17/2020 6960 RxNorm Estefany Hawk [facility] 0 09:44:20 2298 naproxen medicatio n Not available Not available Not available 07/17/2020 7258 RxNorm Estefany Hawk [facility] 0 09:44:25 2299 tramadol medicatio n hallucina tions Not available Not available 07/17/2020 99065 RxNorm Smitha De La [facility] 3 16:01:37 03619 Biaxin medicatio n Not available Not available Not available 09/11/202316215 9 RxNorm Anabelle Craig [facility] 3 13:37:34 Medications Name Sig Start Date Stop Date Status Note LastModified by Organization Details LastModified Time cyclobenz aprine 10 mg tablet TAKE 1 TABLET BY MOUTH THREE TIMES DAILY NEEDED FOR MUSCLE SPASM active Not Available Not Available No t Available Aviane 0.1 mg-20 mcg tablet take 1 tablet by oral route every day 06/27 completed Prescrib matilde Tomas e: No Locat ion: Jose Elias [facility] M odify By: deloris manning DateTime : [...] Yes Loca tion: Jose Elias claros [facility] odify By: jocelyn Sommers r DateTime : 04/01/20 17 08:30:00 AM [...] Prescrib ed Elsewher e: Yes Loca tion: Brennamaxx hyacinth [facility] odify By: jocelyn Sommers r DateTime : 03/25/20 16 10:00:00 AM Not Available Not Available Not Available ciproflox acin 500 mg tablet take 1 tablet by oral route every 12 hours 07/08 completed Prescrib ed Elsewher e: No Locat ion: Brennamaxx hyacinth [facility] odify By: deloris manning DateTime : [...] every 12 hours 05/23 completed Prescrib matilde Tomas e: No Locat ion: [facility] odify By: [email or web address] Encount er DateTime : 07/08/20 18 01:50:33 [...] 1 tablet by oral route every day 06/272018 completed Prescrib ed Elsewher e: No Locat ion: Jose Elias claros [facility] odify By: deloris manning DateTime : 06/27/20 18 10:38:40 AM Not Available Not Available Not Available Quasense 0.15 mg-30 mcg (91) tablets,3 month dose pack take 1 tablet by oral route every day 06/27 completed Prescrib ed Elsewher e: No Locat ion: Jose Elias claros [facility] odify By: deloris Perales ter DateTime : 06/20/20 18 01:00:00 PM Not Available Not Available Not Available Pataday 0.2 % eye drops instill 1 drop by ophthalm ic route every day into affected eye(s) active Prescrib ed Elsewher e: Yes Loca tion: Jose Elias claros [facility] odify By: britni Perales ter DateTime : 07/07/20 18 04:00:00 PM [...] Yes Loca tion: Jose Elias claros [facility] odify By: britni Perales ter DateTime : 07/07/20 18 04:00:00 PM [...] Body mass index (BMI) Body weight Systolic And Diastolic Provider Name and Address Organization Details Last Updated DateTime 11/09/2024 165.1 cm 43.3 kg/m2 849876.02 g 131/82 mm[Hg] ABDULKADIR Jacob [facility] 11/09/2024 09:37:40 Date Recorded Systolic And Diastolic Provider Name and Address Organization Details Last Updated DateTime 04/28/2023 122/80 mm[Hg] Hannah Sharma, [facility]- [address], [place], [address], [facility] 04/28/2023 15:37:39 Date Recorded Body height Body mass index (BMI) Body weight Provider Name and Address Organization Details Last Updated DateTime 04/28/2023 165.1 cm 42.4 kg/m2 020528.05 g Fabiola Jose Alejandro [facility] 04/28/2023 15:22:17 Date Recorded Body height Body mass index (BMI) Body weight Systolic And Diastolic Provider Name and Address Organization Details Last Updated DateTime 05/17/2023 165.1 cm 42.8 kg/m2 204834.24 g 137/85 mm[Hg] Smitha Dorothy [facility] 05/17/2023 15:57:09 Date Recorded Body height Body mass index (BMI) Body weight Systolic And Diastolic Provider Name and Address Organization Details Last Updated DateTime 09/11/2023 165.1 cm 42.4 kg/m2 821009.05 g 127/82 mm[Hg] Anabelle Craig [facility] 09/11/2023 10:23:27 Social History Question Answer Notes LastModified by Organizat ion Details LastModified Time Tobacco Smoking Status Never Smoker Pat rodriguez, [facility] 09/20/2023 16:18:57 Do You Have An Advance Directive? Yes Information n ot available 07/22/2021 Are You Blind Or Do You Have Difficulty Seeing? No Information n ot available 07/21/2021 What Is Your Level Of Caffeine Consumption? Occasional Information not available 07/21/2021 How Much Tobacco Do You Chew? None Information not available 07/22/2021 In The 14 Days Before Symptom Onset, Have You Had Close Contact With A Laboratory-confirm ed COVID-19 While That Case Was Ill? No Information n ot available 07/22/2021 In The 14 Days Before [...] Of Diet Are You Following? SPECIFIC Information n ot available 04/28/2023 What Is The Highest Grade Or Level Of School You Have Completed Or The Highest Degree You Have Received? [id number] Information not available 07/22/2021 Are There Any Guns Present In Your [...] Information not available 07/22/2021 Do You Use Sunscreen Routinely? Yes Information not available 07/21/2021 Have You Used IV Drugs? No Information not available 07/22/2021 Do You Have Difficulty Walking Or Climbing Stairs? No [email or web address] Information not available 11/09/2024 Sex: Unknown Functional Status Question Answer Note LastModified by Organizat ion Details LastModified Time Do you use any illicit or recreational drugs? No Information not available 07/21/2021 What is your level of alcohol consumption? None Information not available 04/28/2023 Are you able to walk? 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 No [email or web address] Information not available 11/09/2024 What is your exercise level? Occasional Information not available 04/28/2023 Mental Status Question Answer Note LastModified by Organization D etails LastModified Time Do you feel stressed (tense, restless, nervous, or anxious, or unable to sleep at night)? [id number] Information not available 07/21/2021 Family History Relationship Description Onset Age of this Age Resolved Age Notes LastModified by Organization Details LastModified Time Mother Carcinoma in situ of breast Not available 2024 09:33:23 Mother Hypercholest erolemia [email or web address] Not available 2019 09:36:28 Mother Excision of cyst of ovary [email or web address] Not available 2024 09:33:23 Mother Asthma [email or web address] Not available 09:37:03 Maternal Grandmother Hypercholest erolemia [email or web address] Not available 2019 09:36:28 Maternal Grandmother Excision of cyst of ovary [email or web address] Not available 2024 09:33:23 Paternal Grandmother Hypercholest erolemia [email or web address] Not available 2019 09:36:28 Maternal Grandfather Asthma [email or web address] Not available 2019 09:37:03 Brother Asthma [email or web address] Not available 1 09:37:03 Father Diabetes mellitus [email or web address] Not available 2019 09:37:12 Father Depressive disorder [email or web address] Not available 2019 09:37:23 Paternal Grandfather Disorder of cardiovascul ar system [email or web address] Not available 2024 09:33:23 Paternal Grandfather Carcinoma in situ of lung [email or web address] Not available 09:33:23 Medical History Condition Response Allergies (Food, seasonal, environmental ) Y Other Y Drug/Latex Allergies/Reactions Y Breast Cancer N Blood Transfusion N Dermatologic Disorders N Lung [...] Neurologic/Epilepsy Y Endometriosis Y High Cholesterol N Fibromyalgia N Headaches N Kidney Disease N Heart Problems N Thyroid Problems N Kidney or Bladder Problems Y GI Problems Y Eating Disorder N Anemia [...] SNOMED-CT Code Diagnosis ICD10 Code Diagnosis Note [id number] [facility] [address] [address] 06/21/2020 14:59:25 06/21/2020 17:18:05 Mass of right breast [id number] [id number] N63.10 Exam warrants need for further imaging [...] of care. Mass of left breast [id number] N63.[id number] [facility] [address],[place] [address] 07/17/2020 09:32:02 07/17/2020 10:22:59 Gynecologic examination [id number] Z01.419 Suggested Calcium with Vitamin D 1200-1500m g daily. Patient advised to get an annual flu shot in the fall and she could obtain at [facility] or [facility] care clinic. Also to obtain TDap [...] week. No other issues or complaints . [id number] [facility] [address],[place] [address] 07/18/2021 16:24:19 07/21/2021 20:17:51 Urinary symptoms [id number] R39.[id number] [facility] [address],[place] [address] 07/22/2021 09:31:43 07/22/2021 10:58:46 Urinary symptoms [id number] R39.9 Gynecologi c examination [id number] Z01.419 Suggested Calcium with Vitamin D 1200-1500m g daily. Patient advised to get an annual flu shot in the fall and she could obtain at [facility] or [facility] care clinic. Also to obtain TDap [...] complaints . History of calculus of kidney [id number] Z87.442 R10.9 R35.0 We will set up [...] to patient satisfacti on. Pain in pelvis [id number] R10.2 R10.[id number] [facility] [address],[place] [address] 04/28/2023 15:07:27 04/28/2023 15:40:57 Urinary symptoms [id number] R39.9 Suspect UTIUrine culture sentRx sentAzo/Cy stex OTC prn Time spent in visit is a total of 15 mins with at least 50% of visit consisting of counseling and review of plan of care. [id number] Adam Magana MD [facility] [address],[place] [address] 05/17/2023 15:39:12 05/17/2023 16:29:18 Urinary symptoms [id number] R39.[id number] [facility] [address],[place] [address] 09/11/2023 10:03:43 09/14/2023 12:01:45 Pain in pelvis [id number] R10.2 This patient is a 43 -year-old [...] Immediatel y with nausea, vomiting, fever, chills. [id number] Adam Magana MD [facility] [address] [address] 09/20/2023 16:18:36 09/20/2023 17:29:18 Pain in pelvis 59524165 R10.2 [id number] MAGGIE Johnson [facility] [address],[place] [address] 11/09/2024 09:33:15 11/09/2024 11:54:37 Gynecologic examination [id number] Z01.419 WWEBC - Partner with vasectomyP ap [...] None Recorded Advance Directives Directive Y: Payers Insurance Date Sequence Insurance Name Policy Number Policy Bryant Covered Member ID Bryant Member ID Guarantor Name 11/01/2024 1 [facility] ([facility] [id number] Damon Nicole [id number] Damon Nicole 11/13/2024 1 [facility] [place] [id number] Damon Nicole [id number] AB Damon Nicole Notes Date Note Type Note Provider Name and Address Organization Details Recorded Time 3 text/html Here today for urinary sx's of urinary urgency, bladder spasms and frequency since returning this week from vacation. Neg pain of abd/pelvis/flankNeg GI sx'sNeg N/V/F/C/DNeg Vag d/c, odor, irritation, itching Hannah Sharma, [facility]- [address], [place], [address], [facility] 04/28/2023 15:39:26 3 text/html [...] await culture and urinalysis. Spent 20 minutes telf-ds-wcbw. More than 50% was counseling. Adam Magana MD [address], [place], [address], [facility] 05/17/2023 16:25:45 3 text/html [...] itchingNeg monogamous MAGGIE Cordero- [address], [place], [address], [facility] 09/14/2023 11:44:58 5 text/html [...] mammogramcolonoscopy UTD MAGGIE Johnson [address], [place], [address], [facility] 11/09/2024 11:46:11 OBGyn Episode Ob Episode Information Episode Created Date Number of Fetuses Patient Bloodtype Patient rh Status Prepregnancy Weight lbs Domestic Partner Domestic Partner Phone Father Name Dog Boarder Status 07/17/20 20 1 DELETED Jose Calculation [...] Domestic Partner Domestic Partner Phone Father Name Dog Boarder Status 07/17/20 20 1 CLOSED Fetus Data [...] Domestic Partner Domestic Partner Phone Father Name Dog Boarder Status 07/17/20 20 1 DELETED Jose Calculation [...] Domestic Partner Domestic Partner Phone Father Name Dog Boarder Status 07/17/20 20 3 CLOSED Fetus Data First Name Last Name Admitted to NICU Weight (g) Sex Living Outcome Pediatric Complications Fetus ID Race Codes Race Delivery Type 1785.79 1704 F Prematur e 5119 Repeat 1757.66 9 F Prematur e 04046 Repeat 1672.39 3704 F Prematur e 21011 Repeat Jose Calculation Initial Jose Date Initial [...]
--- OUTSIDE RECORDS SUMMARY | 2025-04-22 09:28 | XMS_ITS | Encounter Summary ---
Author Organization [facility] Address [address] [place] [address] Care Team Providers Care Antique Repairer Name Role Phone Renetta Vasquez MD Primary Care Provider Un available Encounter Details Date Type Department Care Team (Late st Contact Info) Description 09/05/2024 Lab Requisition [facility] - DermPath Lab [address] [place] [address] Carla Mcdaniels DO [address] [facility] [address] [place] [address] Social History Tobacco Use Types Packs/Day Years [...] Diagnosis Comments DERMATOPATHOLOGY Routine 09/05/2024 8:13 AM FENCE ERECTOR documented in this encounter Results * DERMATOPATHOLOGY (09/05/2024 8:13 AM FENCE ERECTOR) Case Report Dermatopathology Report Case: [id number] Authorizing Provider: Carla Mcdaniels DO Collected: 09/05/2024 08:13 AM Ordering Location: [facility] - Received: 09/05/2024 12:38 PM DermPath Lab Pathologist: Lelo Reid MD Specimen: Skin, left chin 11:11 AM [facility] DERMATOPATHOLOGY [facility]ORATORY Final Diagnosis Specimen A. SKIN, left chin: BENIGN VERRUCOUS KERATOSIS (L82.1) (see microscopic description and comment) 11:11 AM [facility] DERMATOPATHOLOGY LABORATORY at [address] [facility] Clinical History R/O NMSC 11:11 AM [facility] [...] characteristic determined by the Dermatopathology Laboratory at [facility], directed by Dr. Kelly Crane. These tests need not be, and therefore are not, approved by the [place] Food and Drug Administration. The tests are used for clinical purposes. Billing Codes Specimen Charges Stain Charges 03167 1 4 11:11 AM [facility] DERMATOPATHOLOGY LABORATORY Embedded Images 11:11 AM [facility] DERMATOPATHOLOGY LABORATORY Pathology/Cytolo gy TISSUE SPECIMEN FROM SKIN / Unknown 09/05/2024 8:13 AM FENCE ERECTOR 09/05/2024 12:38 PM FENCE ERECTOR us Carla Mcdaniels DO LAB - PATHOLOGY/CYTOLOGY ORDERABLES Final Result DERMATOPATHOLOGY LABORATORY [facility] - Department of Dermatology [address] 3[address] Floor [place], [place] [address] [place] [address] documented in this encounter Visit Diagnoses Not on filedocumented in this encounter Care Teams Antique Repairer Relationship Specialty Start Date End Date Renetta Vasquez MD [address] [facility] [place] [address] PCP - General 12/29/19 documented as of this encounter
--- OUTSIDE RECORDS SUMMARY | 2025-04-22 09:28 | XMS_ITS | Encounter Summary ---
Author Organization [facility] Address [address] [place] [address] Phone Care Team Providers Care Salvager Name Role Phone Gloria Urbina MD Primary Care Provider Encounter Details Date Type Department Care Team (Late st Contact Info) Description 04/20/2025 Results Follow-Up [facility] [address] [place] [address] Yuki Callejas, ANIBAL [address] [facility] [address] [place], [place] [id number] MRI Breast Bilateral W WO Contrast Social History Tobacco Use Types Packs/Day Years [...] on filedocumented in this encounter Care Teams Salvager Relationship Specialty Start Date End Date Gloria Urbina MD [address] [facility] [address] [place] [address] PCP - General Family Practice 09/19/24 documented as of this encounter
[2025-04-22 09:35] VITALS: BP 125/81; PULSE 80; RESP 18; TEMP 36.2; O2SAT 96
--- NOTE | 2025-04-22 09:54 | ED_ITS ---
HPI - URI/Sore Throat General Chief Complaint: Upper Respiratory Infection Stated Complaint: Sinus Infection Time Seen by Provider: 04/22/25 09:57 Source: patient and RN notes reviewed Mode of arrival: ambulatory Limitations: no limitations History of Present Illness HPI Narrative: 44-year-old female presents with concern for 4 day history of sinus pressure, headache, congestion, drainage, ear pressure and cough. She denies fever, aches, chills, sweats. Reports she has been taking wihu-cbu-dlfmfrq cold medication without relief. MD elicited complaint: nasal congestion and sinus pain Related Data Home Medications ?Medication ?Instructions ?Recorded ?Confirmed ?Last Taken ?Type multivitamin (Daily Multi-Vitamin 1 tablet PO DAILY 11/23/23 11/07/24 08/11/24 History tablet) acetaminophen 650 mg 650 mg PO Q12H PRN 09/14/24 11/07/24 Unknown History tablet,extended release (Tylenol Arthritis Pain) cetirizine 10 mg tablet (Zyrtec) 10 mg PO DAILY PRN Allergy Symptoms 09/14/24 11/07/24 Unknown History cyclobenzaprine 10 mg tablet 10 mg PO TID PRN 09/14/24 11/07/24 Unknown History rosuvastatin 10 mg tablet 10 mg PO QHS 11/07/24 11/07/24 Unknown History Allergies Allergy/AdvReac Type Severity Reaction Status Date / Time aspirin Allergy Intermediate Swelling Verified 04/22/25 09:30 NSAIDS (Non-Steroidal Allergy Intermediate face Verified 04/22/25 09:30 Anti-Inflamma swelling midazolam AdvReac Severe Hallucinati Verified 04/22/25 09:30 ng tramadol AdvReac Severe Hallucinati Verified 04/22/25 09:30 ng amoxicillin AdvReac Intermediate Diarrhea Verified 04/22/25 09:30 ciprofloxacin AdvReac Intermediate NAUSEA AND Verified 04/22/25 09:30 DIARRHEA clarithromycin AdvReac Intermediate Vomiting Verified 04/22/25 09:30 erythromycin base AdvReac Intermediate Vomiting Verified 04/22/25 09:30 Review of Systems Review of Systems: CONSTITUTIONAL: Denies malaise, chills, sweats, or fever. EYES: Denies visual changes, redness, or discharge. ENT: Reports rhinorrhea, congestion, sinus pain, otalgia and sore throat. CARDIOVASCULAR: Denies chest pain, palpitations, or edema. RESPIRATORY: Reports cough. Denies dyspnea. GASTROINTESTINAL: Denies abdominal pain, nausea, vomiting, diarrhea SKIN: Denies rash or itching. MUSCULOSKELETAL: Denies myalgia. NEUROLOGIC: Denies headache. All systems reviewed & are unremarkable except as noted in HPI and below PMFSH Past Medical History Medical History Anxiety GERD without esophagitis Lingual tonsil hypertrophy Gluten-sensitive enteropathy Irritable bowel syndrome with diarrhea Myocardial infarction with nonobstructive coronary arteries (~09/2024) Type 2 diabetes mellitus without complications (~09/2024) Sleep apnea On CPAP Chronic venous insufficiency of lower extremity Lymphedema of both lower extremities Bilateral anterior knee pain Diverticulitis (~2019) History of shingles Vitamin D deficiency Shingles Celiac disease Endometriosis Depression (~2009) History of nephrolithotomy with removal of calculi 2014 delivery delivered 2005 and 2007 Scoliosis 7 kevin and screws Surgical History Surgical History History of back surgery History of D&C History of lithotripsy History of tonsillectomy H/O breast biopsy Hx of inguinal hernia repair History of back surgery 1994 Family History Family History Father Skin and subcutaneous tissue complication after insertion of filling material under skin Skin cancer Depression Family history of diabetes mellitus in first degree relative Mother Breast cancer Asthma Right bundle branch block Hypertension Sibling Skin cancer Depression Asthma Other Skin cancer Asthma Grandparent Heart disease Hypertension Grandparent Skin cancer Diabetes mellitus Heart disease Hypertension Thyroid disorder Asthma Other Family history of allergic disorder Social History Social History Smoking status: Never smoker Second hand tobacco smoke exposure: No Alcohol intake: never Alcohol use details: rarely Substance use: never Substance use type: does not use Do You Feel Safe in your Home?: Yes Lack of Transportation: No Lack of Food: Never True Current Housing: I Have Housing Concerned About Future Housing: No Difficulty Paying Gas/Electric Bills: No Difficulty Paying for Meds: No Currently Unemployed: No Education: Master's Degree or Higher Difficulty w/ Childcare or Family Care: No Living arrangements: with family 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 There is no relevant family history pertinent to the presenting complaint Exam Narrative: GENERAL: Well-appearing, well-nourished, and in no acute distress. HEAD: Normocephalic EYES: PERRLA, conjunctivae clear ENT: Nares clear, turbinates edematous and erythematous, clear discharge. Mucous membranes moist. TM pearly reyes with dull light reflex bilaterally; no tragal tenderness. Oropharynx not erythematous without lesions. Tonsils not enlarged an d without exudate, no drooling, no hoarseness, no trismus, uvula midline. NECK: Supple. No lymphadenopathy CHEST: Clear to auscultation, breath sounds equal. No wheezing, rhonchi, rales, or stridor. No respiratory distress, speaks in full sentences. HEART: Regular rate and rhythm. No murmur heard. SKIN: Warm, dry, no rash. NEURO: Alert and oriented x3. PSYCH: Normal mood and affect Course Course Emergency Course: Patient is aware of diagnosis, understands and agrees to treatment plan. An ticipatory guidance given. Patient agrees to follow-up as directed and is aware of reasons to seek care at the emergency department. Portions of this record may have been created with voice recognition software Level of Care: Express Care Visit Vital Signs Vital signs: Vital Signs Temperature 97.2 F L 04/22/25 09:35 Pulse Rate 80 04/22/25 09:35 Respiratory Rate 18 04/22/25 09:35 Blood Pressure 125/81 04/22/25 09:35 Pulse Oximetry 96 04/22/25 09:35 Oxygen Delivery Room Air 04/22/25 09:35 Temperature 97.2 F L 04/22/25 09:35 Pulse Rate 80 04/22/25 09:35 Respiratory Rate 18 04/22/25 09:35 Blood Pressure 125/81 04/22/25 09:35 Pulse Oximetry 96 04/22/25 09:35 Oxygen Delivery Room Air 04/22/25 09:35 Reviewed. MDM - URI/Sore Throat MDM Narrative Medical decision making narrative: Differential diagnosis considered: Sanchez virus, strep pharyngitis, allergic rhinitis, upper respiratory tract infection, sinusitis, rhinosinusitis, nasopharyngitis. viral pharyngitis, otitis media, otitis externa, pneumonia, bronchitis, viral cough syndrome, viral syndrome, and influenza. Exam findings show no acute concerns or changes; patient is non-toxic appearing and is in no distress. Patient is appropriate for outpatient treatment and follow-up. Lab Data Attestation: I reviewed the patient's lab results. Labs: Lab Results 04/22/25 Range/Units 10:02 POC Influenza A Ag Negative (Negative) POC Influenza B Ag Negative (Negative) POC SARS CoV-2 Ag Negative (Negative) Critical Care Time Critical Care Time Critical Care Time: No Discharge Plan Discharge Clinical Impression: Upper respiratory infection Patient Disposition: Home Condition: Stable Instructions: Sinusitis (ED) Additional Instructions: Symptomatic treatment of a sinus infection aims to relieve symptoms. These treatments do not shorten the duration of illness. Nonprescription pain medications, such as acetaminophen (eg, Tylenol) or ibuprofen (eg, Motrin, Advil), are recommended for pain. Flushing the nose and sinuses with a saline solution several times per day has been proven to decrease pain associated with congestion and shorten the duration of symptoms. Nasal steroids (such as Flonase, 2 sprays in each nostril daily) can help to reduce swelling inside the nose, usually within two to three days. These drugs have few side effects and relieve symptoms in most people. Oral decongestants (pseudoephedrine and phenylephrine) may be helpful if you have associated symptoms of ear pain or fullness. Nasal decongestant sprays, including oxymetazoline (Afrin) and phenylephrine (José Manuel-Synephrine), can be used to temporarily treat congestion. However, these sprays should not be used for more than two to three days due to the risk of rebound congestion (when the nose becomes congested constantly unless the medication is used repeatedly), possible addiction, and long-term consequences of frequent use, including persistent nasal dryness and crusting, which is very difficult to treat once it has developed. Medications to thin secretions (such as guaifenesin) may help to clear mucus. Please follow-up with your primary care doctor in the next 1-2 days. If you cannot follow-up with your primary care doctor please go to the ED for any urgent issues. If you have any worsening of symptoms or any other concerns please go to the ED immediately. Patient Language: Honduran Prescriptions: New methylprednisolone [Medrol (Brandon)] 4 mg tablets,dose pack See Rx Instructions .ROUTE .COMPLEX Qty: 21 0RF Rx Instructions: orally per package directions No Action multivitamin [Daily Multi-Vitamin] Tablet 1 tablet PO DAILY Patient Comments: has not been taking in last month rosuvastatin 10 mg tablet 10 mg PO QHS cetirizine [Zyrtec] 10 mg tablet 10 mg PO DAILY PRN (Reason: Allergy Symptoms) acetaminophen [Tylenol Arthritis Pain] 650 mg tablet extended release 650 mg PO Q12H PRN cyclobenzaprine 10 mg tablet 10 mg PO TID PRN cholecalciferol (vitamin D3) 1,250 mcg (50,000 unit) tablet 1,250 mcg PO WEEKLY Qty: 12 1RF (DME) blood-glucose meter [Blood Glucose Monitoring] Kit See Rx Instructions .ROUTE .MEDSUPPLY Qty: 1 0RF Rx Instructions: check blood sugars q.day. As directed (DME) Blood Glucose Test Strip See Rx Instructions .ROUTE .MEDSUPPLY Qty: 100 3RF Rx Instructions: Use to check BS once daily. (DME) lancets 33 gauge misc See Rx Instructions .ROUTE .MEDSUPPLY Qty: 100 3RF Rx Instructions: Use to check BS once daily. Jardiance 25 mg tablet 25 mg PO QAM Qty: 90 1RF Ozempic 1 mg/dose (4 mg/3 mL) pen injector 1 mg subcut WEEKLY Qty: 3 1RF coenzyme Q10 200 mg capsule 200 mg PO DAILY Qty: 90 1RF Follow-up/Referrals: Kenn Urbina MD [Primary Care Provider] - Time of Disposition: 09:57
[2025-04-22 10:04] LABS: EDCOVIDSCREEN Negative (Negative); EDINFLUASCREEN Negative (Negative); EDINFLUBSCREEN Negative (Negative)
== END 2025-04-22 09:59 | disposition home or self-care (01) ==
PROVIDERS: Emergency Provider Nurse Practitioner; PCP Family Medicine
DX: J06.9 Acute upper respiratory infection, unspecified (principal); Z20.822 Contact with and (suspected) exposure to COVID-19; K21.9 Gastro-esophageal reflux disease without esophagitis; I25.2 Old myocardial infarction; E11.9 Type 2 diabetes mellitus without complications; Z79.84 Long term (current) use of oral hypoglycemic drugs; Z79.85 Long-term (current) use of injectable non-insulin antidiabetic drugs; G47.30 Sleep apnea, unspecified; E55.9 Vitamin D deficiency, unspecified; K90.0 Celiac disease; N80.9 Endometriosis, unspecified; M41.9 Scoliosis, unspecified; I87.2 Venous insufficiency (chronic) (peripheral)
CPT/HCPCS: 87426; 87804; 99213; G0463

== ENCOUNTER 2025-05-23 09:54 | Outpatient (CLI) | payer BC, SELFPAY ==
--- OUTSIDE RECORDS SUMMARY | 2025-05-23 10:03 | XMS_ITS | Patient Health Record ---
Author Organization [facility] Address [address] [place], [place] [address] Care Team Providers Care Ends Breakage Clerk Name Role Phone KYLEE Rahman Unavailable [phone] Answer, Declined Unavailable Unavailable SNOOK, MARIO Unavailable [phone] Allergies Allergen (clinical drug ingredient) Drug/Non Drug Allergy documented on EMR Reaction Allergy Type Onset Date Status Anti-Inflammatory Enzyme Unknown Drug Allergy Active Tape Unknown Allergy Active Reason For Referral No Information Encounters Encounter Location Date Provider Diagnosis [facility] [place] [address] [place], [place] [id number] 06/19/2024 MARIO SNOOK Plantar fascial fibromatosis M72.2 ; Unequal limb length (acquired), unspecified tibia and fibula M21.769 ; Pain in right foot M79.671 and Left foot pain M79.672 [facility] [place] [address] [place] [id number] 07/31/2024 MARIO SNOOK Plantar fascial fibromatosis M72.2 ; Unequal limb length (acquired), unspecified tibia and fibula M21.769 ; Pain in right foot M79.671 and Left foot pain M79.672 [facility] [place] [address] [place] [id number] 09/04/2024 MARIO SNOOK Plantar fascial fibromatosis M72.2 [...] and the use of orthotic devices. [facility] 09/04/2024 Unequal limb length (acquired), [...] Insured Coverage Start Date Coverage End Date [facility] ([facility]) ATTN CLAIMS [address] [place] [address] [id number] LEOPOLDO BECK Self - patient is the insured
--- OUTSIDE RECORDS SUMMARY | 2025-05-23 10:03 | XMS_ITS | Clinical Summary ---
Author Organization [facility] [employer] Address [address] [facility] [place] [address] Care Team Providers Care Kiln Loader Name Role Phone Renetta Vasquez MD Primary Care Provider Un available Source Comments [facility] [employer],non-owned Affiliates and Associated Physician Practices is amultiple site organization consisting of ambulatory clinics and hospital sitesin [place], [place], [place] and [place]. This disclosure is being madepursuant to the Care Everywhere program and may not contain all information available regarding this patient. Last updated 18.[facility] [employer] Allergies Active Allergy Reactions Criticality Noted Date [...] Acetaminophen (TYLENOL PO) Active Cholecalciferol (VITAMIN D3) 87209 units capsule 03/09/2019 Active sertraline (ZOLOFT) 50 [...] 36.6 C (97.8 F) 09/19/2018 1:50 PM SUPERVISOR FINE GRADING Respiratory Rate 21 04/03/2019 1:10 PM CDT [...] bowel preparation was evaluated using the BBPS (Charlotte Bowel Preparation Scale) with scores of: Right [...] previously scheduled. Procedure Code(s): --- Professional --- 60673, Colonoscopy, flexible; with biopsy, single or multiple --- Technical --- 75080, Colonoscopy, flexible; with biopsy, single or multiple Diagnosis Code(s): --- Professional --- K52.9, Noninfective gastroenteritis and colitis, unspecified --- Technical --- K52.9, Noninfective gastroenteritis and colitis, unspecified CPT copyright 2017 [employer]. All rights reserved. The codes documented in this report are preliminary and upon park police review may be revised to meet current compliance requirements. Adilene Templeton MD Adilene Templeton MD 04/03/2019 12:54:48 PM Number of Addenda: 0 Note Initiated On: 04/03/2019 11:38 AM [facility] 04/03/2019 11:3 8 AM CDT Adilene Templeton MD GI PROCEDURE ORDERABLES E dited Result - Final [facility] from Last 3 Months or Most Recently Relevant [place] [address] [facility] * Guarantor: BECK,LEOPOLDO Account Type Relation to Patient Date of Phone Billing Address Personal/Family 1980 [facility] [place] [address] ANTHEM Care Teams Kiln Loader Relationship Specialty Start Date End Date Renetta Vasquez MD [address] [address] PCP - General 12/29/19
--- OUTSIDE RECORDS SUMMARY | 2025-05-23 10:03 | XMS_ITS | Encounter Summary ---
Author Organization [facility] Address [address] [place] [address] Care Team Providers Care Fixed Wing Aircraft Flight Engineer Name Role Phone Michael Acharya MD Primary Care Provider [phone] Sarita Lopez NP Primary Care Provider [phone] Cristina Navarro NP Primary Care Provider + Gloria Urbina MD Primary Care Provider Encounter Details Date Type Department Care Team (Late st Contact Info) Description 08/05/2020 Telephone [facility] ([facility] [address] [place] [address] Bentley Mehta, Social History Tobacco Use [...] on filedocumented in this encounter Care Teams Fixed Wing Aircraft Flight Engineer Relationship Specialty Start Date End Date Michael Acharya MD [address] [place] [address] PCP - General 07/26/17 07/19/22 Sarita Lopez NP [address] [place] [address] PCP - General Nurse Practitioner 07/20/22 12/02/23 Cristina Navarro NP [address] [place] [address] [address] [place] [address] PCP - General Nurse Practitioner 12/03/23 09/18/24 Gloria Urbina MD [address] [place] [address] [address] [place] [address] PCP - General Family Practice 09/19/24 documented as of this encounter
--- OUTSIDE RECORDS SUMMARY | 2025-05-23 10:03 | XMS_ITS ---
Author Organization [facility] Address [address] [place], [place] [address] Care Team Providers Care Foot Specialist Name Role Phone KYLEE Rahman Unavailable [phone] Answer, Declined Unavailable Unavailable SNOOK, MARIO Unavailable [phone] REASON FOR VISIT Plantar fasciitis fu Encounters Encounter Location Date Provider Diagnosis [facility] [place] [address] [address] [place], [place] [id number] 07/03/2024 MARIO BARRIOSK Plan Of Treatment No Information Progress Notes * KIRAN LEOPOLDO RDOB:1980 (44 yo F)Acc No.[id number]:07/03/2024 Patient: LEOPOLDO LANDAVERDE Provider: Ck Green DPM :1980 A ge:44 Y S ex:Female Date:07/03/2024 Address:[address] [facility] [address].[id number] Subjective: * Chief Complaints: * 1 . Plantar fasciitis fu. * Medical History: Objective: * Vitals: Assessment: Plan: * Treatment: * Billing Information: * Visit Code: * Procedure Codes: * Electronic signature of MARIO GREEN DPM on 05/23/2025 at 10:03 AM CDT Sign off status: Pending * Provider: Ck Green DPM Date: 0 07/03/2024 Generated for Sammii ng/Faxing/eTransmitting on: 0 05/23/2025 10:03 AM CDT
--- OUTSIDE RECORDS SUMMARY | 2025-05-23 10:03 | XMS_ITS | Encounter Summary ---
Author Organization [facility] Address [address] [place] [address] Phone Care Team Providers Care Machine Shop Repair Technician Name Role Phone Gloria Urbina MD Primary Care Provider Encounter Details Date Type Department Care Team (Late st Contact Info) Description 04/20/2025 Results Follow-Up [facility] [address] [place] [address] Yuki Callejas, ANIBAL [address] [facility] [address] [place], [place] [id number] MRI Breast Bilateral W WO Contrast Social [...] on filedocumented in this encounter Care Teams Machine Shop Repair Technician Relationship Specialty Start Date End Date Gloria Urbina MD [address] [facility] [address] [place] [address] PCP - General Family Practice 09/19/24 documented as of this encounter
--- OUTSIDE RECORDS SUMMARY | 2025-05-23 10:03 | XMS_ITS | Clinical Summary ---
Author Organization [facility] Address [address] [place] [address] Care Team Providers Care Computer Game Tester Name Role Phone Gloria Urbina MD Primary [...] total) by mouth every 30 (thirty) days 018 Active cholecalcifer ol (VITAMIN D-3) 50,000 unit capsule Take 1 capsule (50,000 Units total) by mouth once a week 023 Active cyclobenzapri ne (FLEXERIL) 10 mg tablet cyclobenzaprine 10 mg tablet TAKE 1 TABLET BY MOUTH THREE TIMES DAILY NEEDED FOR MUSCLE SPASM Active moxifloxacin (VIGAMOX) 0.5 % ophthalmic solution moxifloxacin 0.5 % eye drops INSTILL 1 DROP IN LEFT EYE FOUR TIMES DAILY. Active mfvrpamo36-ay kl-Kdflbmbo-s lgal 27 mg iron-1.13 mg-581.92 mg capsule Take by mouth Active fluticasone propionate (FLONASE) 50 mcg/actuation nasal spray SHAKE LIQUID AND USE 1 SPRAY IN EACH NOSTRIL TWICE DAILY Active cetirizine (ZyrTEC) 10 mg tablet Take 1 tablet (10 mg total) by mouth daily Active famotidine (PEPCID) 20 mg tablet Take 1 tablet (20 mg total) by mouth 2 (two) times a day as needed for heartburn Active empagliflozin (JARDIANCE) 25 mg tablet 1 tablet (25 mg total) daily Active coenzyme Q10 200 mg capsule Take 1 capsule (200 mg total) by mouth daily Active rosuvastatin (CRESTOR) 10 mg tablet TAKE 1 TABLET(10 MG) BY MOUTH DAILY 90 tablet 3 025 Active rosuvastatin (CRESTOR) 10 mg tablet TAKE 1 TABLET(10 MG) BY MOUTH DAILY 90 tablet 025 2024 Discontinued Active Problems Problem Noted Date Diagnosed Date [...] - 04/20/2025 11:59 PM CDT Hospital Encounter [facility] [address] [place] [address] At high risk for breast cancer; Family history of breast cancer; Dense breast tissue Discharge Disposition: Discharge to home or self care 04/20/2025 Results Follow-Up [facility] [address] [place] [address] Yuki Callejas NP MRI Breast Bilateral W WO Contrast 03/20/2025 9:15 AM CDT Office Visit [facility] [address] [place] [address] Juan Henley MD Lipid screening [...] Screening 1997 Regular Well Visit/Exam 18-64 1997 HPV Vaccines (1 - 3-dose SCDM series) 2006 Covid-19 Vaccine ( season) 2024 11/05/2021 Influenza Vaccine (#1) 2025 , 06/25/2020, 06/27/2019, Additional history exists Breast Cancer Screening-Mammogram 10/27/2025 10/27/2024, 10/18/2023, 07/27/2022, Additional history exists Pneumococcal vaccine <65 Aged Out No longer eligible based on patient's age to complete this topic Medical Devices Implanted Type Area Historiography Professor Device Identifier Shelf Expiration Date Model / [...] Read Routine (OP Routine) 10/27/2024 11:28 AM HAIRSPRING STUDDER Breast cancer screening by mammogram from Last [...] in the visualized portions of either axilla. Jessica Odonnell NP IMG MRI PROCEDURES Final [...] Mammogram Bilateral W Miranda (10/27/2024 11:28 AM HAIRSPRING STUDDER) Anatomical Region Laterality Modality Breast Bilateral Mammography Narrative 10/30/2024 11:33 AM HAIRSPRING STUDDER Mammogram Technique: Bilateral Digital Breast Tomosynthesis, Bilateral C-view 2D Screening mammogram. Views obtained: bilateral craniocaudal and bilateral mediolateral oblique. Computer Aided Detection was performed. Mammogram Findings: The present examination has been compared to prior imaging studies performed at [facility] on 02/24/2021, 07/30/2021, 07/27/2022 and 10/18/2023. [...] compared to prior imaging studies performed at [facility] on 02/24/2021, 07/30/2021,07/27/2022 and 10/18/2023. The [...] Most Recently Relevant to Health Maintenance Insurance [employer] ACCESS CHOICE ANTHEM ACCESS CHOICE Care Teams Computer Game Tester Relationship Specialty Start Date End Date Gloria Urbina MD [address] [facility] [address] PCP - General Family Practice 09/19/24
--- OUTSIDE RECORDS SUMMARY | 2025-05-23 10:03 | XMS_ITS | Encounter Summary ---
Author Organization [facility] Healthcare Address [address] [place] [address] Care Team Providers Care Lead Coater Name Role Phone Cristina Navarro NP Primary Care Provider + Gloria Urbina MD Primary Care Provider Encounter Details Date Type Department Care Team (Late st Contact Info) Description 09/15/2024 Orders Only [facility] Management [address] [place] [address] Juan Henley MD [address] [place] [address] Social History Tobacco Use Types [...] on filedocumented in this encounter Care Teams Lead Coater Relationship Specialty Start Date End Date Cristina Navarro NP [address] [facility] [address] [place] [address] PCP - General Nurse Practitioner 12/03/23 09/18/24 Gloria Urbina MD [address] [place] [address] [address] [place] [address] PCP - General Family Practice 09/19/24 documented as of this encounter
--- OUTSIDE RECORDS SUMMARY | 2025-05-23 10:03 | XMS_ITS | Clinical Summary ---
Author Organization [facility] Address [address] [place] [address] Care Team Providers Care Last Ironer Name Role Phone None, Provider MD Primary [...] of 3 - 19+ 3-dose series) 1998 HPV Vaccines (1 - 3-dose SCDM series) 2006 Cervical Cancer Screening Pap with HPV Testing (Age 30 to 64) Every 5 Years 2009 Cervical Cancer Screening with HPV 2009 Mammogram Screening 2019 COVID-19 Vaccine ( season) 2024 08/30/2022, 11/05/2021, 12/31/2020, Additional history exists Meningococcal B Vaccine Aged Out No l [...] to complete this topic Insurance Care Teams Last Ironer Relationship Specialty Start Date End Date None, Provider, MD PCP - General UNKNOWN PHYSICIAN SPECIALTY 04/05/24
--- OUTSIDE RECORDS SUMMARY | 2025-05-23 10:03 | XMS_ITS | Clinical Summary ---
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
--- OUTSIDE RECORDS SUMMARY | 2025-05-23 10:03 | XMS_ITS | Encounter Summary ---
Author Organization [facility] Healthcare Address [address] [place] [address] Care Team Providers Care Manipulator Operator Name Role Phone Gloria Urbina MD Primary Care Provider Encounter Details Date Type Department Care Team (Late st Contact Info) Description 09/22/2024 Orders Only [facility] Health Information Management [address] [place] [address] Scanning, Provider Social History Tobacco Use Types Packs/Day Years [...] Procedure Name Priority Date/Time Associated Diagnosis Comments SCAN - LABS 09/22/2024 documented in this encounter Results * SCAN - LABS (09/22/2024) us Provider Scanning Final Result documented in this encounter Visit Diagnoses Not on filedocumented in this encounter Care Teams Manipulator Operator Relationship Specialty Start Date End Date Gloria Urbina MD [address] [facility] [address] [place] [address] PCP - General Family Practice 09/19/24 documented as of this encounter
--- OUTSIDE RECORDS SUMMARY | 2025-05-23 10:03 | XMS_ITS | Patient Health Record ---
Author Organization [facility] Address [address] [place] [address] Care Team Providers Care Roll Plugger Name Role Phone Carlitos AGUIRRE, Gloria Primary Care Provider Unavailable Amy Petty Unavailable [phone] Allergies Allergen (clinical drug ingredient) Drug/Non Drug [...] a day Active Vitamin D3 1.25 MG (25088 UT) TAKE 1 CAP RAOUL BY MOUTH [...] Status Risk Notes Problem Generalized anxiety disorder (81694701) RADHA (generalized anxiety disorder) (F41.1) Active confirmed Problem Moderate recurrent major depression (51185385) MDD (major depressive disorder), recurrent episode, moderate (F33.1) Active confirmed Problem Posttraumatic stress disorder (68988153) Chronic post-traumatic stress disorder (PTSD) (F43.12) Active confirmed Problem Vitamin D deficiency (69484225) Vitamin D deficiency (E55.9) Active confirmed Vital Signs Heart Rate 91 /min 12/07/2024 Blood pressure diastolic 89 mm Hg 12/07/2024 Weight-kg 116.85 kg 12/07/2024 Blood pressure systolic 133 mm Hg 12/07/2024 Weight 257.6 lbs 12/07/2024 Encounters Encounter Location Date Provider Diagnosis [facility] Page Mage [facility] [address] [address] 12/07/2024 Amy Malinda MDD (major depressive disorder), [...] syndrome. websites http_s://www.nimh. nih.gov/health/top ics/mental-health- medications http_s://www.nain. org/Pkqfd-Mrwhpf-Q llness/Treatments/ Ovpxoa-Frvxgt-Bkgt cations http_s://www.nain. org/Cpnnd-Jigmew-R llness/Mental-Heal th-Conditions http_s://OQO.com/depression /jka-wusndohdd-nkn kpvcj-bt-ipuqqhvut n#treatments http__s://www.nimh .nih.gov/health/to pics/mental-health -medications http__s://www.nain .org/About-Mental- Illness/Treatments /Ntiuzv-Aoetcl-Rzh ications http_s://elda.nih. gov/publications/d rugfacts/cannabis- marijuana http_s://www.Md7/cannabi a-cbk-owfpcwoy-mar ijuana-adhd/ Medication Management and Follow-Up - Plan: [...] syndrome. websites http_s://www.nimh. nih.gov/health/top ics/mental-health- medications http_s://www.nain. org/Cuhhq-Gfzklc-Q llness/Treatments/ Bevwjy-Cnzmnn-Fnsd cations http_s://www.nain. org/Xsixg-Afebro-B llness/Mental-Heal th-Conditions http_s://psychcent Fluidigm.com/depression /tpa-eizkpyyld-ise gvpcj-ci-jvaptmbeo n#treatments http__s://www.nimh .nih.gov/health/to pics/mental-health -medications http__s://www.nain .org/About-Mental- Illness/Treatments /Awlahz-Ssgtgq-Txs ications http_s://elda.nih. gov/publications/d rugfacts/cannabis- marijuana http_s://www.Md7/cannabi k-dmv-jnlghnaw-mar ijuana-adhd/ Medication Management and Follow-Up - Plan: [...] syndrome. websites http_s://www.nimh. nih.gov/health/top ics/mental-health- medications http_s://www.nain. org/Swyha-Cipobw-R llness/Treatments/ Qnolui-Zpecnd-Yurw cations http_s://www.nain. org/Usqai-Rufsee-E llness/Mental-Heal th-Conditions http_s://cityguru/depression /pxh-loghgulxt-ryi hmvds-gq-nqqjionrx n#treatments http__s://www.nimh .nih.gov/health/to pics/mental-health -medications http__s://www.nain .org/About-Mental- Illness/Treatments /Glgcee-Pbuzwe-Klh ications http_s://elda.nih. gov/publications/d rugfacts/cannabis- marijuana http_s://wwwEnject/cannabi t-jpq-auvfhkga-mar ijuana-adhd/ Medication Management and Follow-Up - Plan: [...] syndrome. websites http_s://www.nimh. nih.gov/health/top ics/mental-health- medications http_s://www.nain. org/Ozwcu-Swakqm-T llness/Treatments/ Ymbvvw-Dvppbw-Gjhg cations http_s://www.nain. org/Hlrpx-Phpxvz-W llness/Mental-Heal th-Conditions http_s://OQO.Streamezzo/depression /gqp-luakilqis-wxu vgyvq-fp-sdtrznwmo n#treatments http__s://www.nimh .nih.gov/health/to pics/mental-health -medications http__s://www.nain .org/About-Mental- Illness/Treatments /Ssrrjt-Knggdn-Ztg ications http_s://elda.nih. gov/publications/d rugfacts/cannabis- marijuana http_s://www.Md7/cannabi i-hsn-ycibmhbi-mar ijuana-adhd/ Medication Management and Follow-Up - Plan: [...] syndrome. websites http_s://www.nimh. nih.gov/health/top ics/mental-health- medications http_s://www.nain. org/Iddbu-Jhtwph-N llness/Treatments/ Lzudal-Rcjywl-Jvkt cations http_s://www.nain. org/Uqzrl-Ougbgz-Q llness/Mental-Heal th-Conditions http_s://cityguru/depression /oor-fenpwcszh-dml iqgjy-hf-rcakbjjkk n#treatments http__s://www.nimh .nih.gov/health/to pics/mental-health -medications http__s://www.nain .org/About-Mental- Illness/Treatments /Icbtgv-Afavoi-Rxq ications http_s://elda.nih. gov/publications/d rugfacts/cannabis- marijuana http_s://www.Md7/cannabi g-aqp-zmyekany-mar ijuana-adhd/ Medication Management and Follow-Up - Plan: [...] Insured Coverage Start Date Coverage End Date [facility] [address] [place] [address] [id number] NicoleKaylie Self - patient is the insured [...]
--- OUTSIDE RECORDS SUMMARY | 2025-05-23 10:03 | XMS_ITS | Encounter Summary ---
Author Organization [facility] Address [address] [place] [address] Care Team Providers Care Principal Gifts Officer Name Role Phone Michael Acharya MD Primary Care Provider [phone] Renetta Vasquez MD Primary Care Provider Un available Encounter Details Date Type Department Care Team (Late st Contact Info) Description 08/12/2018 Lab Requisition [facility] Care DermPath Lab [address] [facility] [place] [address] Shavonne Anders MD [address] [facility] [address] [place] [address] Social History Tobacco Use Types Packs/Day Years [...] AM CDT) Case Report Dermatopathology Report Case: [id number] Authorizing Provider: Shavonne Anders MD Collected: 08/11/2018 12:00 AM Pathologist: Nell Doty MD Received: 08/12/2018 06:56 AM Specimen: Skin, back 10:38 AM T DERMATOPATHOLOGY LABORATORY Clinical History R/O cyst, irritated, painful. 10:38 AM [facility] DERMATOPATH[facility] Gross Description Specimen A: Received is one formalin filled container labeled with the patient's name and designated back. The specimen consists of a [id number] excision. The specimen is serially sectioned and a construction sales representative section is submitted in cassette 1. Jar 1. [facility] Dermatopathology Laboratory performed the technical component only. 10:38 AM [facility] DERMATOPATHOLOGY [facility]ORATORY Embedded Images 10:38 AM [facility] DERMATOPATHOLOG[facility]OR[facility] DISCLAIMER An external and internal positive and negative controls are appropriate for the histochemical, immunohistochemical and immunofluorescence stain(s) in this case (if any), except where stated explicitly. The performance characteristics of the stain(s) cited in this report were developed and its performance characteristic determined by the Dermatopathology Laboratory at [facility]. These tests need not be, and therefore are not, approved by the [place] Food and Drug Administration. The tests are used for clinical purposes. 10:38 AM [facility] DERMATOPATHOLOGY [facility]ORATORY at 1038 CDT Pathology/Cytolog y TISSUE SPECIMEN FROM SKIN / Unknown 08/11/2018 08/12/2018 6:56 AM CDT us Shavonne Anders MD LAB - PATHOLOGY/CYTOLOGY ORD ERABLES Final Result DERMATOPATHOLOGY LABORATORY [facility] - Department of Dermatology [address] [place] [address], 5th Floor Lab [address] [phone] documented in this encounter Visit Diagnoses Not on filedocumented in this encounter Care Teams Principal Gifts Officer Relationship Specialty Start Date End Date Michael Acharya MD [address] [place] [address] PCP - General 08/03/18 12/28/19 Renetta Vasquez MD [address] [address] PCP - General 12/29/19 documented as of this encounter
--- OUTSIDE RECORDS SUMMARY | 2025-05-23 10:03 | XMS_ITS | Clinical Summary ---
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 Gender Identity Not on file Sexual Orientation [...] Health Maintenance Due Date Last Done Comments HPV VACCINES (1 - 3-dose series) 1994 DTAP/TDAP/TD VACCINES (1 - Tdap) 1998 HEPATITIS B VACCINES (1 of 3 - 19+ 3-dose series) 1998 HPV/Cotest (21-29) 2000 CERVICAL CANCER SCREENING 2009 HPV/Cotest (30-65) 2009 PAP SMEAR 2009 BREAST CANCER SCREENING 07/27/2023 07/27/20, 07/27/2022, 07/30/2021, Additional history exists COLORECTAL SCREENING 2024 Colorectal Cancer Screening 2024 FIT-DNA Q 3 years 2024 FIT/FOBT Q 1 year 2024 Flex Sig/CT Colonography Q 5 years 2024 COVID-19 Vaccine ( - 2023-2 5 season) 2024 11/05/2021 INFLUENZA VACCINE (#1) 2025 06/25/2020, [address] [facility] BLUE ACCESS/TRUE BLUE PPO
--- OUTSIDE RECORDS SUMMARY | 2025-05-23 10:03 | XMS_ITS | Encounter Summary ---
Author Organization [facility] Address [address] [facility] [place] [address] Care Team Providers Care Certified Midwife Name Role Phone Renetta Vasquez MD Primary Care Provider Un available Encounter Details Date Type Department Care Team (Late st Contact Info) Description 09/05/2024 Lab Requisition [facility] - DermPath Lab [address] [facility], [place] [phone] Carla Mcdaniels DO [address] [facility] 3 [place] [address] Social History Tobacco Use Types Packs/Day Years [...] Diagnosis Comments DERMATOPATHOLOGY Routine 09/05/2024 8:13 AM WEED INSPECTOR documented in this encounter Results * DERMATOPATHOLOGY (09/05/2024 8:13 AM WEED INSPECTOR) Case Report Dermatopathology Report Case: [id number] Authorizing Provider: Carla Mcdaniels DO Collected: 09/05/2024 08:13 AM Ordering Location: [facility] - Received: 09/05/2024 12:38 PM DermPath Lab Pathologist: Lelo Reid MD Specimen: Skin, left chin 11:11 AM [facility] DERMATOPATHOLOGY LABORATORY Final Diagnosis Specimen A. SKIN, left chin: BENIGN VERRUCOUS KERATOSIS (L82.1) (see microscopic description and comment) 11:11 AM [facility] DERMATOPATHOLOGY LABORATORY at [address] [facility] Clinical History R/O NMSC 11:11 AM [facility] DERMATOPATHOLOGY LABORATORY Gross Description Specimen A: Received is one formalin filled container labeled with the patient's name and designated left chin. The specimen consists of a shave biopsy measuring 3x3x1 mm. Jar 0. 11:11 AM [facility] DERMATOPATHOLOGY LABORATORY Microscopic Description Specimen A. SKIN, left chin: Sections show hyperkeratosis, papillomatosis, hypergranulosis, and acanthosis. These histological findings can be seen in a verruca vulgaris or a seborrheic keratosis. Additional deeper sections were obtained and reviewed. COMMENT: Given the superficial nature of the biopsy specimen, a deeper dermal process cannot be excluded. 11:11 AM [facility] DERMATOPATHOLOGY LABORATORY Disclaimer An external and internal positive and negative controls are appropriate for the histochemical, immunohistochemical and immunofluorescence stain(s) in this case (if any), except where stated explicitly. The performance characteristics of the stain(s) cited in this report were developed and its performance characteristic determined by the Dermatopathology Laboratory at [facility], directed by Dr. Kelly Crane. These tests need not be, and therefore are not, approved by the [place] Food and Drug Administration. The tests are used for clinical purposes. Billing Codes Specimen Charges Stain Charges 47760 1 4 11:11 AM [facility] DERMATOPATHOLOGY LABORATORY Embedded Images 11:11 AM [facility] DERMATOPATHOLOGY LABORATORY Pathology/Cytolo gy TISSUE SPECIMEN FROM SKIN / Unknown 09/05/2024 8:13 AM WEED INSPECTOR 09/05/2024 12:38 PM WEED INSPECTOR us Carla Mcdaniels DO LAB - PATHOLOGY/CYTOLOGY ORDERABLES Final Result DERMATOPATHOLOGY LABORATORY [facility] - Department of Dermatology [address] 3rd Floor [place], [place] [address] [place] [address] documented in this encounter Visit Diagnoses Not on filedocumented in this encounter Care Teams Certified Midwife Relationship Specialty Start Date End Date Renetta Vasquez MD [address] [facility] [place] [address] PCP - General 12/29/19 documented as of this encounter
--- OUTSIDE RECORDS SUMMARY | 2025-05-23 10:03 | XMS_ITS | Encounter Summary ---
Author Organization [facility] Address [address] [facility] [place] [address] Care Team Providers Care Adjunct Instructor Chemistry Name Role Phone Renetta Vasquez MD Primary Care Provider Un available Encounter Details Date Type Department Care Team (Late st Contact Info) Description 08/12/2023 Lab Requisition [facility] - DermPath Lab [address] [facility], [place] [address] Shavonne Anders MD [address] [facility] 3 [place] [address] Social History Tobacco Use Types Packs/Day Years [...] PM CDT) Case Report Dermatopathology Report Case: [id number] Authorizing Provider: Shavonne Anders MD Collected: 08/12/2023 01:55 PM Ordering Location: [facility] DermPath Lab Received: 08/13/2023 01:19 PM Pathologist: Alexia Rogers MD Specimen: Skin, chin 3:23 PM [facility] DERMATOPATHOLOGY LABORATORY Final Diagnosis Specimen A. 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 The specimen consists of a shave biopsy measuring 5x3x1 mm. Jar 0. 3:23 PM [facility] DERMATOPATHOLOGY [...] larger lesion, these findings may not be veterans contact representative of the entire lesion. Clinicopathologic correlation is recommended. 3:23 PM [facility] DERMATOPATHOLOGY [...] purposes. Billing Codes Specimen Charges Stain Charges 31933 1 3 3:23 PM [facility] DERMATOPATHOLOGY LABORATORY Embedded Images 3 3:23 PM [facility] DERMATOPATHOLOGY LABORATORY Pathology/Cytolo gy TISSUE SPECIMEN FROM SKIN / Unknown 08/12/2023 1:55 PM CDT 08/13/2023 1:19 PM CDT us Shavonne Anders MD LAB - PATHOLOGY/CYTOLOGY ORD ERABLES Final Result DERMATOPATHOLOGY LABORATORY [facility] - Department of Dermatology [facility] Medicine [address] [place] [address], 3rd Floor [address] [phone] documented in this encounter Visit Diagnoses Not on filedocumented in this encounter Care Teams Adjunct Instructor Chemistry Relationship Specialty Start Date End Date Renetta Vasquez MD [address] [place] [address] PCP - General 12/29/19 documented as of this encounter
[2025-05-23 13:39] LABS: Alanine Aminotransferase 44 U/L (6-35); Albumin Level 4.1 g/dL (3.5-5.1); Alkaline Phosphatase 77 U/L (38-126); Anion Gap 7 mmol/L (4-12); Aspartate Amino Transferase 48 U/L (14-36); Bilirubin,Total 0.4 mg/dL (0.2-1.3); Blood Urea Nitrogen 12 mg/dL (7-17); Calcium 9.0 mg/dL (8.4-10.2); Carbon Dioxide 25 mmol/L (22-30); Chloride 106 mmol/L (98-107); Estimated Glomerular Filt Rate > 60; Glucose 98 mg/dL (65-110); Potassium 4.1 mmol/L (3.4-5.0); Sodium 138 mmol/L (137-145); Total Protein 7.5 g/dL (6.3-8.2)
[2025-05-23 17:15] LABS: Hemoglobin A1C 6.1 % (<5.7)
== END 2025-05-23 09:55 | disposition home or self-care (01) ==
LOC: ANHGOSHLAB 09:54
PROVIDERS: PCP Family Medicine; Visit Provider Family Medicine
DX: E11.9 Type 2 diabetes mellitus without complications (principal); E55.9 Vitamin D deficiency, unspecified; I10 Essential (primary) hypertension
CPT/HCPCS: 36415; 80053; 82306; 83036

== ENCOUNTER 2025-05-27 20:34 | Emergency (ER) | payer BC, SELFPAY ==
--- NOTE | ~2025-05-27 | CT_ITS ---
Clinical Indication: Chest pain, shortness of breath CT Scan of the Chest with Contrast: Technique: Contiguous sections were acquired throughout the chest after intravenous administration of 100 cc of Omnipaque 350. Dose reduction technique was used on this scan by utilizing automated expos ure control and iterative reconstruction technique. The dose-length product (DLP) was 698.23 mGy-cm. COMPARISON: 09/11/2024 Findings: There is no evidence of any significant mediastinal, hilar or axillary lymphadenopathy. There is no f illing defect in the pulmonary arterial tree to suggest pulmonary embolus. There is no evidence of ao rtic dissection or aneurysm. There is no evidence of pleural or pericardial effusion. Probable focal scarring or atelectasis in the lingula. Lungs are otherwise clear. Images through the upper abdomen reveal no abnormalities. Impression: No evidence of pulmonary embolus, aortic dissection, or aortic aneurysm. Probable focal scarring or atelectasis in the lingula, otherwise clear lungs. Reviewed, dictated and finalized at location . Impression: No evidence of pulmonary embolus, aortic dissection, or aortic aneurysm. Probable focal scarring or atelectasis in the lingula, otherwise clear lungs.
--- NOTE | ~2025-05-27 | XR_ITS ---
CHEST RADIOGRAPH, PA AND LATERAL CLINICAL HISTORY: CHEST PAIN . COMPARISON: 09/11/2024 TECHNIQUE: PA and lateral views of the chest. FINDINGS The cardiomediastinal silhouette is unremarkable. Elevation of the left hemidiaphragm with adjacent compressive atelectasis. The remainder of the lungs are clear. IMPRESSION: Elevation of the left hemidiaphragm with adjacent compressive atelectasis, without focal infiltrate o r effusion. Reviewed, dictated and finalized at location A. IMPRESSION: Elevation of the left hemidiaphragm with adjacent compressive atelectasis, with out focal infiltrate or effusion.
--- NOTE | 2025-05-27 20:36 | ECG_ITS ---
Test Date: 2025-05-27 20:46:24 Measurements Intervals [place] Rate: 89 P: 22 [place]: 132 QRS: -9 QRSD: 94 T: 15 QT: 363 QTc: 442 Interpretive Statements SINUS RHYTHM DELAYED PRECORDIAL R/S TRANSITION VOLTAGE CRITERIA FOR LVH INFERIOR INFARCT, AGE INDETERMINATE BASELINE ARTIFACT- I, III, AVR, AVL ABNORMAL ECG Compared to ECG 09/11/2024 08:19:44 NO SIGNIFICANT CHANGE Electronically Signed On 05-28-2025 07:00:49 CDT by Gray Moralez D.O.
--- OUTSIDE RECORDS SUMMARY | 2025-05-27 20:37 | XMS_ITS | Encounter Summary ---
Author Organization [facility] Address [address] [place] [address] Care Team Providers Care Registered Nurse Practitioner Name Role Phone Michael Acharya MD Primary Care Provider [phone] Sarita Lopez NP Primary Care Provider [phone] Cristina Navarro NP Primary Care Provider + Gloria Urbina MD Primary Care Provider Encounter Details Date Type Department Care Team (Late st Contact Info) Description 08/05/2020 Telephone [facility] ([facility]) [address] [place] [address] Bentley Mehta, Social History Tobacco Use [...] on filedocumented in this encounter Care Teams Registered Nurse Practitioner Relationship Specialty Start Date End Date Michael Acharya MD [address] [place] [address] PCP - General 07/26/17 07/19/22 Sarita Lopez NP [address] [place] [address] PCP - General Nurse Practitioner 07/20/22 12/02/23 Cristina Navarro NP [address] [place] [address] [address] [place] [address] PCP - General Nurse Practitioner 12/03/23 09/18/24 Gloria Urbina MD [address] [place] [address] [address] [place] [address] PCP - General Family Practice 09/19/24 documented as of this encounter
--- OUTSIDE RECORDS SUMMARY | 2025-05-27 20:37 | XMS_ITS | Clinical Summary ---
Author Organization [facility] Address [address] [place] [address] Care Team Providers Care Crayon Grader Name Role Phone Gloria Urbina MD Primary [...] IN LEFT EYE FOUR TIMES DAILY. Active axiaxskr10-cv pw-Jfxhjebj-l lgal 27 mg iron-1.13 mg-581.92 mg capsule [...] - 04/20/2025 11:59 PM CDT Hospital Encounter [facility]) [address] [place] [address] At high risk for breast cancer; Family history of breast cancer; Dense breast tissue Discharge Disposition: Discharge to home or self care 04/20/2025 Results Follow-Up [facility] Surgery [address] [place] [address] Yuki Callejas NP MRI Breast Bilateral W WO Contrast 03/20/2025 9:15 AM CDT Office Visit [facility] Cardiology [address] [place] [address] Juan Henley MD Lipid screening [...] this topic Medical Devices Implanted Type Area Carnallite Plant Operator Device Identifier Shelf Expiration Date Model [...] Read Routine (OP Routine) 10/27/2024 11:28 AM PRODUCTION WORKER Breast cancer screening by mammogram from Last [...] Mammogram Bilateral W Miranda (10/27/2024 11:28 AM PRODUCTION WORKER) Anatomical Region Laterality Modality Breast Bilateral Mammography Narrative 10/30/2024 11:33 AM PRODUCTION WORKER Mammogram Technique: Bilateral Digital Breast Tomosynthesis, Bilateral C-view 2D Screening mammogram. Views obtained: bilateral craniocaudal and bilateral mediolateral oblique. Computer Aided Detection was performed. Mammogram Findings: The present examination has been compared to prior imaging studies performed at [facility] on 02/24/2021, 07/30/2021, 07/27/2022 and [...] compared to prior imaging studies performed at [facility] on 02/24/2021, 07/30/2021,07/27/2022 and 10/18/2023. [...] Most Recently Relevant to Health Maintenance Insurance [employer] ACCESS CHOICE ANTHEM ACCESS CHOICE Care Teams Crayon Grader Relationship Specialty Start Date End Date Gloria Urbina MD [address] [facility] [place] [address] PCP - General Family Practice 09/19/24
--- OUTSIDE RECORDS SUMMARY | 2025-05-27 20:37 | XMS_ITS | Clinical Summary ---
Author Organization [facility] Address [address] [place] [address] Care Team Providers Care Spool Sorter Name Role Phone None, Provider MD Primary [...] to complete this topic Insurance Care Teams Spool Sorter Relationship Specialty Start Date End Date None, Provider, MD PCP - General UNKNOWN PHYSICIAN SPECIALTY 04/05/24
--- OUTSIDE RECORDS SUMMARY | 2025-05-27 20:37 | XMS_ITS | Encounter Summary ---
Author Organization [facility] Address [address] [place] [address] Care Team Providers Care Commercial Lines Insurance Agent Name Role Phone Gloria Urbina MD Primary Care Provider Encounter Details Date Type Department Care Team (Late st Contact Info) Description 09/22/2024 Orders Only [facility] Health Information Management [address] [place] [address] Scanning, Provider Social History Tobacco Use Types [...] on filedocumented in this encounter Care Teams Commercial Lines Insurance Agent Relationship Specialty Start Date End Date Gloria Urbina MD [address] [facility] [address] [place] [address] PCP - General Family Practice 09/19/24 documented as of this encounter
--- OUTSIDE RECORDS SUMMARY | 2025-05-27 20:37 | XMS_ITS | Encounter Summary ---
Author Organization [facility] Address [address] [facility] [place] [address] Care Team Providers Care Barrel Driller Name Role Phone Michael Acharya MD Primary Care Provider [phone] Renetta Vasquez MD Primary Care Provider Un available Encounter Details Date Type Department Care Team (Late st Contact Info) Description 08/12/2018 Lab Requisition [facility] Care DermPath Lab [address] [facility], [place] [phone] Shavonne Anders MD [address] [facility] 3 [place] [address] Social History Tobacco Use Types Packs/Day Years [...] AM CDT) Case Report Dermatopathology Report Case: [id number] Authorizing Provider: Shavonne Anders MD Collected: 08/11/2018 12:00 AM Pathologist: Nell Doty MD Received: 08/12/2018 06:56 AM Specimen: Skin, back 10:38 AM T DERMATOPATHOLOGY LABORATORY Clinical History R/O cyst, irritated, painful. 10:38 AM [facility] DERMATOPATHOLOGY LABORATORY Gross Description Specimen A: Received is one formalin filled container labeled with the patient's name and designated back. The specimen consists of a [id number] excision. The specimen is serially sectioned and a delivery representative section is submitted in cassette 1. Jar 1. [facility] Dermatopathology Laboratory performed the technical component only. 10:38 AM [facility] DERMATOPATHOLOGY LABORATORY Embedded Images 10:38 AM [facility] DERMATOPATHOLOGY LABORATORY DISCLAIMER An external and [...] are used for clinical purposes. 10:38 AM [facility] DERMATOPATHOLOGY LABORATORY at 1038 CDT Pathology/Cytolog y TISSUE SPECIMEN FROM SKIN / Unknown 08/11/2018 08/12/2018 6:56 AM CDT us Shavonne Anders MD LAB - PATHOLOGY/CYTOLOGY ORD ERABLES Final Result DERMATOPATHOLOGY LABORATORY [facility] - Department of Dermatology [address] [place] [address], 5th Floor Lab [address] [phone] documented in this encounter Visit Diagnoses Not on filedocumented in this encounter Care Teams Barrel Driller Relationship Specialty Start Date End Date Michael Acharya MD [address] [place] [address] PCP - General 08/03/18 12/28/19 Renetta Vasquez MD [address] [place] [address] PCP - General 12/29/19 documented as of this encounter
--- OUTSIDE RECORDS SUMMARY | 2025-05-27 20:37 | XMS_ITS | Clinical Summary ---
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
--- OUTSIDE RECORDS SUMMARY | 2025-05-27 20:37 | XMS_ITS | Encounter Summary ---
Author Organization [facility] Healthcare Address [address] [place] [address] Care Team Providers Care Procurement Buyer Name Role Phone Cristina Navarro NP Primary Care Provider + Gloria Urbina MD Primary Care Provider Encounter Details Date Type Department Care Team (Late st Contact Info) Description 09/15/2024 Orders Only [facility] Health Information Management [address] [place] [address] Juan Henley MD [address] [place] [address] Social History Tobacco Use Types [...] on filedocumented in this encounter Care Teams Procurement Buyer Relationship Specialty Start Date End Date Cristina Navarro NP [address] [facility] [address] [place] [address] PCP - General Nurse Practitioner 12/03/23 09/18/24 Gloria Urbina MD [address] [place] [address] [address] [place] [address] PCP - General Family Practice 09/19/24 documented as of this encounter
--- OUTSIDE RECORDS SUMMARY | 2025-05-27 20:37 | XMS_ITS | Patient Health Record ---
Author Organization [facility] Address [address] [place] [address] Care Team Providers Care Housekeeper Cleaning Cooking Name Role Phone Carlitos AGUIRRE, Gloria Primary Care Provider Unavailable Amy Petty Unavailable [phone] Allergies Allergen (clinical drug ingredient) Drug/Non Drug [...] a day Active Vitamin D3 1.25 MG (87088 UT) TAKE 1 CAP RAOUL BY MOUTH [...] Status Risk Notes Problem Generalized anxiety disorder (70400102) RADHA (generalized anxiety disorder) (F41.1) Active confirmed Problem Moderate recurrent major depression (96603171) MDD (major depressive disorder), recurrent episode, moderate (F33.1) Active confirmed Problem Posttraumatic stress disorder (20338904) Chronic post-traumatic stress disorder (PTSD) (F43.12) Active confirmed Problem Vitamin D deficiency (78602246) Vitamin D deficiency (E55.9) Active confirmed Vital Signs Heart Rate 91 /min 12/07/2024 Blood pressure diastolic 89 mm Hg 12/07/2024 Weight-kg 116.85 kg 12/07/2024 Blood pressure systolic 133 mm Hg 12/07/2024 Weight 257.6 lbs 12/07/2024 Encounters Encounter Location Date Provider Diagnosis [facility] [address] [address] 12/07/2024 Amy Malinda MDD (major depressive disorder), [...] syndrome. websites http_s://www.nimh. nih.gov/health/top ics/mental-health- medications http_s://www.nain. org/Njfiz-Rvccbs-K llness/Treatments/ Squspl-Ebflup-Mzil cations http_s://www.nain. org/Evxgq-Gbsagn-P llness/Mental-Heal th-Conditions http_s://Acrisure.com/depression /jft-kjkktooau-dou foati-xv-qffqbtxwe n#treatments http__s://www.nimh .nih.gov/health/to pics/mental-health -medications http__s://www.nain .org/About-Mental- Illness/Treatments /Lgxpon-Kfinwi-Tva ications http_s://elda.nih. gov/publications/d rugfacts/cannabis- marijuana http_s://www.okay.com/cannabi h-ouf-mzruufrt-mar ijuana-adhd/ Medication Management and Follow-Up - Plan: [...] syndrome. websites http_s://www.nimh. nih.gov/health/top ics/mental-health- medications http_s://www.nain. org/Chrek-Vfhrrm-P llness/Treatments/ Hgamzf-Fivqzo-Jjoi cations http_s://www.nain. org/Ukizb-Aqtejs-Q llness/Mental-Heal th-Conditions http_s://psychcent Nova Ratio.com/depression /wug-gvwrqzdwt-zhy xyfum-hu-gjrxcfpwl n#treatments http__s://www.nimh .nih.gov/health/to pics/mental-health -medications http__s://www.nain .org/About-Mental- Illness/Treatments /Vhraod-Cgixvp-Hbo ications http_s://elda.nih. gov/publications/d rugfacts/cannabis- marijuana http_s://www.okay.com/cannabi i-bev-plnxemgq-mar ijuana-adhd/ Medication Management and Follow-Up - Plan: [...] syndrome. websites http_s://www.nimh. nih.gov/health/top ics/mental-health- medications http_s://www.nain. org/Kbpks-Bdkiqo-B llness/Treatments/ Oubfvo-Bmplvy-Ueiv cations http_s://www.nain. org/Udgmj-Bitdxp-L llness/Mental-Heal th-Conditions http_s://[employer]*/depression /nmv-socqwzoxn-qek mgypx-kt-xklhrafsq n#treatments http__s://www.nimh .nih.gov/health/to pics/mental-health -medications http__s://www.nain .org/About-Mental- Illness/Treatments /Nbovrk-Gjbsfc-Elj ications http_s://elda.nih. gov/publications/d rugfacts/cannabis- marijuana http_s://wwwSouthwest Windpower/cannabi b-ijo-wfgsrfbm-mar ijuana-adhd/ Medication Management and Follow-Up - Plan: [...] syndrome. websites http_s://www.nimh. nih.gov/health/top ics/mental-health- medications http_s://www.nain. org/Syskg-Wdwrln-V llness/Treatments/ Iilpvq-Svqvgv-Wcvh cations http_s://www.nain. org/Inbgz-Ecbazy-V llness/Mental-Heal th-Conditions http_s://Acrisure.[employer]/depression /ngf-wvjjlnjny-ovf wkdsr-qi-lkivevphj n#treatments http__s://www.nimh .nih.gov/health/to pics/mental-health -medications http__s://www.nain .org/About-Mental- Illness/Treatments /Dikave-Caecoq-Hft ications http_s://elda.nih. gov/publications/d rugfacts/cannabis- marijuana http_s://www.okay.com/cannabi q-zok-uhkxowna-mar ijuana-adhd/ Medication Management and Follow-Up - Plan: [...] syndrome. websites http_s://www.nimh. nih.gov/health/top ics/mental-health- medications http_s://www.nain. org/Inamt-Ahdxhq-E llness/Treatments/ Uqiwol-Wxoqwb-Ufda cations http_s://www.nain. org/Eamzj-Pxedgi-H llness/Mental-Heal th-Conditions http_s://[employer]*/depression /fxt-klzdpuqqo-cvj mqnlp-uv-qdaozbkst n#treatments http__s://www.nimh .nih.gov/health/to pics/mental-health -medications http__s://www.nain .org/About-Mental- Illness/Treatments /Undexs-Bkfexz-Jzt ications http_s://elda.nih. gov/publications/d rugfacts/cannabis- marijuana http_s://www.okay.com/cannabi r-qks-djastdoa-mar ijuana-adhd/ Medication Management and Follow-Up - Plan: [...] Insured Coverage Start Date Coverage End Date [facility] [address] [place] [address] [id number] NicoleKaylie Self - patient is the insured [...]
--- OUTSIDE RECORDS SUMMARY | 2025-05-27 20:37 | XMS_ITS | Patient Health Record ---
Author Organization [facility] Address [address] [facility] [address] [place], [place] [address] Care Team Providers Care Hot Pond Operator Name Role Phone KYLEE Rahman Unavailable [phone] Answer, Declined Unavailable Unavailable SNOOK, MARIO Unavailable [phone] Allergies Allergen (clinical drug ingredient) Drug/Non Drug Allergy documented on EMR Reaction Allergy Type Onset Date Status Anti-Inflammatory Enzyme Unknown Drug Allergy Active Tape Unknown Allergy Active Reason For Referral No Information Encounters Encounter Location Date Provider Diagnosis [facility] [place] [address] [place], [place] [phone] 06/19/2024 MARIO SNOOK Plantar fascial fibromatosis M72.2 ; Unequal limb length (acquired), 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 [facility] 09/04/2024 Unequal limb length [...] Insured Coverage Start Date Coverage End Date [facility] ([facility]) ATTN CLAIMS [address] [place] [address] [id number] LEOPOLDO BECK Self - patient is the insured
--- OUTSIDE RECORDS SUMMARY | 2025-05-27 20:38 | XMS_ITS | Clinical Summary ---
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
--- OUTSIDE RECORDS SUMMARY | 2025-05-27 20:38 | XMS_ITS | Encounter Summary ---
Author Organization [facility] Address [address] [place] [address] Phone Care Team Providers Care Director Records Management Name Role Phone Gloria Urbina MD Primary Care Provider Encounter Details Date Type Department Care Team (Late st Contact Info) Description 04/20/2025 Results Follow-Up [facility] Surgery [address] [place] [address] Yuki Callejas, ANIBAL [address] [facility] [address] [place], [place] [id number] MRI Breast Bilateral W WO Contrast Social [...] on filedocumented in this encounter Care Teams Director Records Management Relationship Specialty Start Date End Date Gloria Urbina MD [address] [facility] [address] [place] [address] PCP - General Family Practice 09/19/24 documented as of this encounter
--- OUTSIDE RECORDS SUMMARY | 2025-05-27 20:38 | XMS_ITS | Encounter Summary ---
Author Organization [facility] Address [address] [facility] [place] [address] Care Team Providers Care Animal Laboratory Helper Name Role Phone Renetta Vasquez MD Primary Care Provider Un available Encounter Details Date Type Department Care Team (Late st Contact Info) Description 09/05/2024 Lab Requisition [facility] - DermPath Lab [address] [facility], [place] [phone] Carla Mcdaniels DO [address] [facility] 3 [place] [address] Social History Tobacco Use Types Packs/Day Years [...] Diagnosis Comments DERMATOPATHOLOGY Routine 09/05/2024 8:13 AM SPECIAL SERVICES SUPERVISOR documented in this encounter Results * DERMATOPATHOLOGY (09/05/2024 8:13 AM SPECIAL SERVICES SUPERVISOR) Case Report Dermatopathology Report Case: [id number] Authorizing Provider: Carla Mcdaniels DO Collected: 09/05/2024 08:13 AM Ordering Location: [facility] - Received: 09/05/2024 12:38 PM DermPath Lab Pathologist: Lelo Reid MD Specimen: Skin, left chin 11:11 AM [facility] D[facility]ORY Final Diagnosis Specimen A. SKIN, left chin: BENIGN VERRUCOUS KERATOSIS (L82.1) (see microscopic description and comment) 11:11 AM [facility] DERMAT[facility] LABORATORY at [address] [facility] Clinical History R/O NMSC 11:11 AM [facility] DER[facility] LABORATORY Gross Description Specimen A: Received is one formalin filled container labeled with the patient's name and designated left chin. The specimen consists of a shave biopsy measuring 3x3x1 mm. Jar 0. 11:11 AM [facility] DER[facility] LAB[facility]ATORY Microscopic Description Specimen A. SKIN, left chin: Sections show hyperkeratosis, papillomatosis, hypergranulosis, and acanthosis. These histological findings can be seen in a verruca vulgaris or a seborrheic keratosis. Additional deeper sections were obtained and reviewed. COMMENT: Given the superficial nature of the biopsy specimen, a deeper dermal process cannot be excluded. 11:11 AM [facility] DERMAT[facility] LABORATORY Disclaimer An external and internal positive and negative controls are appropriate for the histochemical, immunohistochemical and immunofluorescence stain(s) in this case (if any), except where stated explicitly. The performance characteristics of the stain(s) cited in this report were developed and its performance characteristic determined by the Dermatopathology Laboratory at [facility], directed by Dr. Kelly Crane. These tests need not be, and therefore are not, approved by the [place] Food and Drug Administration. The tests are used for clinical purposes. Billing Codes Specimen Charges Stain Charges 17063 1 4 11:11 AM [facility] DERMATOPATH[facility] LABORATORY Embedded Images 11:11 AM [facility] DERMAT[facility] LABORATORY Pathology/Cytolo gy TISSUE SPECIMEN FROM SKIN / Unknown 09/05/2024 8:13 AM SPECIAL SERVICES SUPERVISOR 09/05/2024 12:38 PM SPECIAL SERVICES SUPERVISOR us Carla Mcdaniels DO LAB - PATHOLOGY/CYTOLOGY ORDERABLES Final Result DERMATOPATHOLOGY LABORATORY [facility] - Department of Dermatology [address] 3rd Floor [place], [place] [address] [place] [address] documented in this encounter Visit Diagnoses Not on filedocumented in this encounter Care Teams Animal Laboratory Helper Relationship Specialty Start Date End Date Renetta Vasquez MD [address] [facility] [place] [address] PCP - General 12/29/19 documented as of this encounter
--- OUTSIDE RECORDS SUMMARY | 2025-05-27 20:38 | XMS_ITS | Encounter Summary ---
Author Organization [facility] Address [address] [place] [address] Care Team Providers Care Inpatient Services Rn Name Role Phone Renetta Vasquez MD Primary Care Provider Un available Encounter Details Date Type Department Care Team (Late st Contact Info) Description 08/12/2023 Lab Requisition [facility] - DermPath Lab [address] [facility], [place] [phone] Shavonne Anders MD [address] [facility] 3 [place] [address] Social History Tobacco Use Types Packs/Day Years [...] PM CDT) Case Report Dermatopathology Report Case: [id number] Authorizing Provider: Shavonne Anders MD Collected: 08/12/2023 01:55 PM Ordering Location: [facility] DermPath Lab Received: 08/13/2023 01:19 PM Pathologist: Alexia Rogers MD Specimen: Skin, chin 3:23 PM [facility] DERMATOPATHOLOGY LABORATORY Final Diagnosis Specimen A. 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 The specimen consists of a shave biopsy measuring 5x3x1 mm. Jar 0. 3:23 PM [facility] DERMATOPATHOLOGY LABORATORY Microscopic Description [...] larger lesion, these findings may not be product representative of the entire lesion. Clinicopathologic correlation is recommended. 3:23 PM [facility] DERMATOPATHOLOGY LABORATORY Disclaimer An external and internal positive and negative controls are appropriate for the histochemical, immunohistochemical and immunofluorescence stain(s) in this case (if any), except where stated explicitly. The performance characteristics of the stain(s) cited in this report were developed and its performance characteristic determined by the Dermatopathology Laboratory at [facility], directed by Dr. Kelly Crane. These tests need not be, and therefore are not, approved by the [place] Food and Drug Administration. The tests are used for clinical purposes. Billing Codes Specimen Charges Stain Charges 03460 1 3 3:23 PM [facility] DERMATOPATHOLOGY LABORATORY Embedded Images 3 3:23 PM [facility] DERMATOPATHOLOGY LABORATORY Pathology/Cytolo gy TISSUE SPECIMEN FROM SKIN / Unknown 08/12/2023 1:55 PM CDT 08/13/2023 1:19 PM CDT us Shavonne Anders MD LAB - PATHOLOGY/CYTOLOGY ORD ERABLES Final Result DERMATOPATHOLOGY LABORATORY [facility] - Department of Dermatology [facility] Medicine [address] [place] [address], [address]rd Floor [address] [phone] documented in this encounter Visit Diagnoses Not on filedocumented in this encounter Care Teams Inpatient Services Rn Relationship Specialty Start Date End Date Renetta Vasquez MD [address] [place] [address] PCP - General 12/29/19 documented as of this encounter
--- OUTSIDE RECORDS SUMMARY | 2025-05-27 20:38 | XMS_ITS | Clinical Summary ---
Author Organization [facility] Address [address] [facility] [place] [address] Care Team Providers Care Sales Architect Name Role Phone Renetta Vasquez MD Primary Care Provider Un available Source Comments [facility],non-owned Affiliates and Associated Physician Practices is amultiple site organization consisting of ambulatory clinics and hospital sitesin [place], [place] and [place]. This disclosure is being madepursuant to the Care Everywhere program and may not contain all information available regarding this patient. Last updated 18.[facility] Allergies Active Allergy Reactions Criticality Noted Date [...] Acetaminophen (TYLENOL PO) Active Cholecalciferol (VITAMIN D3) 88798 units capsule 03/09/2019 Active sertraline (ZOLOFT) 50 [...] 36.6 C (97.8 F) 09/19/2018 1:50 PM MEDICAL DRIVER Respiratory Rate 21 04/03/2019 1:10 PM CDT [...] bowel preparation was evaluated using the BBPS ([place] Bowel Preparation Scale) with scores of: Right [...] previously scheduled. Procedure Code(s): --- Professional --- 17629, Colonoscopy, flexible; with biopsy, single or multiple --- Technical --- 29037, Colonoscopy, flexible; with biopsy, single or multiple Diagnosis Code(s): --- Professional --- K52.9, Noninfective gastroenteritis and colitis, unspecified --- Technical --- K52.9, Noninfective gastroenteritis and colitis, unspecified CPT copyright 2017 [employer] [place]. All rights reserved. The codes documented in this report are preliminary and upon publications sales representative review may be revised to meet current compliance requirements. Adilene Templeton MD Adilene Templeton MD 04/03/2019 12:54:48 PM Number of Addenda: 0 Note Initiated On: 04/03/2019 11:38 AM [facility] ENDOSCOPY 04/03/2019 11:3 8 AM CDT Adilene Templeton MD GI PROCEDURE ORDERABLES E dited Result - Final [facility] ENDOSCOPY from Last 3 Months or Most Recently Relevant to [place] [address] [facility] * Guarantor: BECK,LEOPOLDO Account Type Relation to Patient Date of Phone Billing Address Personal/Family [address] [facility] [place] [address] ANTHEM Care Teams Sales Architect Relationship Specialty Start Date End Date Renetta Vasquez MD [address] [place] [address] PCP - General 12/29/19
--- OUTSIDE RECORDS SUMMARY | 2025-05-27 20:38 | XMS_ITS ---
Author Organization [facility] Address [address] [place], [place] [address] Care Team Providers Care Resource Development Manager Name Role Phone KYLEE Rahman Unavailable [phone] Answer, Declined Unavailable Unavailable SNOOK, MARIO Unavailable [phone] REASON FOR VISIT Plantar fasciitis fu Encounters Encounter Location Date Provider Diagnosis [facility] [place] [address] [place], [place] [phone] 07/03/2024 MARIO BARRIOSK Plan Of Treatment No Information Progress Notes * KIRAN LEOPOLDO RDOB:1980 (44 yo F)Acc No.[id number]:07/03/2024 Patient: LEOPOLDO LANDAVERDE Provider: Ck Green DPM :1980 A ge:44 Y S ex:Female Date:07/03/2024 Address:[address] [facility] Subjective: * Chief Complaints: * 1 . Plantar fasciitis fu. * Medical History: Objective: * Vitals: Assessment: Plan: * Treatment: * Billing Information: * Visit Code: * Procedure Codes: * Electronic signature of MARIO GREEN DPM on 05/27/2025 at 08:37 PM CDT Sign off status: Pending * Provider: Ck Green DPM Date: 0 07/03/2024 Generated for Sammii ng/Faxing/eTransmitting on: 0 05/27/2025 08:37 PM CDT
[2025-05-27 20:42] VITALS: BP 159/84; PULSE 94; RESP 16; TEMP 36.8; O2SAT 97
--- NOTE | 2025-05-27 20:43 | PC.NURSE ---
pt has allergy to aspirin so order not placed for that medication with cp protocol
[2025-05-27 20:55] LABS: Hematocrit 47.7 % (37.0-47.0); Hemoglobin 15.0 g/dL (12.0-15.0); Immature Granulocyte Percent A 0.4 % (0-0.5); Lymphocytes Absolute Auto 3.40 K/mm3 (0.9-3.2); Mean Corpuscular HGB Conc 31.4 g/dl (32-36); Mean Corpuscular Hemoglobin 28.0 pg (26-34); Mean Corpuscular Volume 89.0 fl (80-100); Nucleated Red Blood Cells Absolute Auto 0.000 K/mm3 (0.0-0.012); Nucleated Red Blood Cells Perc 0.0 % (0.0-0.2); Platelet Count Result 271 k/mm3 (150-375); Red Blood Count 5.36 M/mm3 (4.2-5.4); White Blood Count 9.3 K/mm3 (4.5-10.0)
[2025-05-27 21:13] LABS: INR 0.9; Prothrombin Time 12.4 Seconds (11.1-14.7)
[2025-05-27 21:14] LABS: Partial Thromboplastin Time 24.3 Seconds (22.3-36.8)
[2025-05-27 21:22] LABS: Alanine Aminotransferase 42 U/L (6-35); Albumin Level 4.5 g/dL (3.5-5.1); Alkaline Phosphatase 84 U/L (38-126); Anion Gap 9 mmol/L (4-12); Aspartate Amino Transferase 37 U/L (14-36); Bilirubin,Total 0.6 mg/dL (0.2-1.3); Blood Urea Nitrogen 12 mg/dL (7-17); Calcium 9.1 mg/dL (8.4-10.2); Carbon Dioxide 23 mmol/L (22-30); Chloride 105 mmol/L (98-107); Estimated Glomerular Filt Rate > 60; Glucose 142 mg/dL (65-110); Lipase 85 U/L (23-300); Potassium 4.3 mmol/L (3.4-5.0); Sodium 137 mmol/L (137-145); Total Protein 8.1 g/dL (6.3-8.2)
[2025-05-27 21:31] LABS: Troponin I 0.014 ng/mL (0.000-0.034)
[2025-05-28] VITALS (26 sets, daily range): BP systolic 107–144; BP diastolic 57–75; PULSE 77–94; RESP 9–23; O2SAT 94–99
--- NOTE | 2025-05-28 | ECG_ITS ---
Test Date: 2025-05-28 00:20:18 Measurements Intervals [place] Rate: 79 P: 42 IA: 132 QRS: 2 QRSD: 98 T: 17 QT: 407 QTc: 467 Interpretive Statements SINUS RHYTHM VOLTAGE CRITERIA FOR LVH CONSIDER INFERIOR INFARCT, AGE INDETERMINATE ABNORMAL ECG Compared to ECG 05/27/2025 20:46:24 NO SIGNIFICANT CHANGE Electronically Signed On 05-28-2025 07:48:06 CDT by Gray Moralez D.O.
--- OUTSIDE RECORDS SUMMARY | 2025-05-28 00:32 | XMS_ITS | Encounter Summary ---
Author Organization [facility] Address [address] [facility] [place] [address] Care Team Providers Care Solutions Market Consultant Name Role Phone Michael Acharya MD Primary Care Provider [phone] Renetta Vasquez MD Primary Care Provider Un available Encounter Details Date Type Department Care Team (Late st Contact Info) Description 08/12/2018 Lab Requisition [facility] Care DermPath Lab [address] [facility], [place] [phone] Shavonne Anders MD [address] [facility] 3 [place] [address] Social History Tobacco Use Types Packs/Day Years [...] AM CDT) Case Report Dermatopathology Report Case: [id number] Authorizing Provider: Shavonne Anders MD Collected: 08/11/2018 12:00 AM Pathologist: Nell Doty MD Received: 08/12/2018 06:56 AM Specimen: Skin, back 10:38 AM T DERMATOPATHOLOGY LABORATORY Clinical History R/O cyst, irritated, painful. 10:38 AM [facility] DERMATOPATHOLOGY LABORATORY Gross Description Specimen A: Received is one formalin filled container labeled with the patient's name and designated back. The specimen consists of a 14w15p13ph excision. The specimen is serially sectioned and a arborist representative section is submitted in cassette 1. Jar 1. [facility] Dermatopathology Laboratory performed the technical component only. 10:38 AM [facility] DERMATOPATHOLOGY LABORATORY Embedded Images 10:38 AM [facility] DERMATOPATHOLOGY LABORATORY DISCLAIMER An external and internal positive and negative controls are appropriate for the histochemical, immunohistochemical and immunofluorescence stain(s) in this case (if any), except where stated explicitly. The performance characteristics of the stain(s) cited in this report were developed and its performance characteristic determined by the Dermatopathology Laboratory at [facility]. These tests need not be, and therefore are not, approved by the [place] Food and Drug Administration. The tests are used for clinical purposes. 10:38 AM [facility] DERMATOPATHOLOGY LABORATORY at 1038 CDT Pathology/Cytolog y TISSUE SPECIMEN FROM SKIN / Unknown 08/11/2018 08/12/2018 6:56 AM CDT us Shavonne Anders MD LAB - PATHOLOGY/CYTOLOGY ORD ERABLES Final Result DERMATOPATHOLOGY LABORATORY [facility] - Department of Dermatology [address] [place] [address], 5th Floor Lab [address] [phone] documented in this encounter Visit Diagnoses Not on filedocumented in this encounter Care Teams Solutions Market Consultant Relationship Specialty Start Date End Date Michael Acharya MD [address] [place] [address] PCP - General 08/03/18 12/28/19 Renetta Vasquez MD [address] [place] [address] PCP - General 12/29/19 documented as of this encounter
--- OUTSIDE RECORDS SUMMARY | 2025-05-28 00:33 | XMS_ITS | Encounter Summary ---
Author Organization [facility] Address [address] [place] [address] Care Team Providers Care Manager Costing Name Role Phone Cristina Navarro NP Primary Care Provider + Gloria Urbina MD Primary Care Provider Encounter Details Date Type Department Care Team (Late st Contact Info) Description 09/15/2024 Orders Only [facility] [place] Information Management [address] [place] [phone] Juan Henley MD [address] [place] [address] Social History Tobacco Use Types [...] on filedocumented in this encounter Care Teams Manager Costing Relationship Specialty Start Date End Date Cristina Navarro NP [address] [facility] [address] [place] [address] PCP - General Nurse Practitioner 12/03/23 09/18/24 Gloria Urbina MD [address] [place] [address] [address] [place] [address] PCP - General Family Practice 09/19/24 documented as of this encounter
--- OUTSIDE RECORDS SUMMARY | 2025-05-28 00:33 | XMS_ITS | Encounter Summary ---
Author Organization [facility] Address [address] [place] [address] Care Team Providers Care Lean Manufacturing Leader Name Role Phone Gloria Urbina MD Primary Care Provider Encounter Details Date Type Department Care Team (Late st Contact Info) Description 09/22/2024 Orders Only [facility] Health Information Management [address] [place] [address] Scanning, Provider Social History Tobacco Use Types [...] on filedocumented in this encounter Care Teams Lean Manufacturing Leader Relationship Specialty Start Date End Date Gloria Urbina MD [address] [facility] [address] [place] [address] PCP - General Family Practice 09/19/24 documented as of this encounter
--- OUTSIDE RECORDS SUMMARY | 2025-05-28 00:33 | XMS_ITS | Patient Health Record ---
Author Organization [facility] Address [address] [facility] [address] [place], [place] [phone] Care Team Providers Care Community Affairs Manager Name Role Phone KYLEE Rahman Unavailable [phone] Answer, Declined Unavailable Unavailable SNOOK, MARIO Unavailable [phone] Allergies Allergen (clinical drug ingredient) Drug/Non Drug Allergy documented on EMR Reaction Allergy Type Onset Date Status Anti-Inflammatory Enzyme Unknown Drug Allergy Active Tape Unknown Allergy Active Reason For Referral No Information Encounters Encounter Location Date Provider Diagnosis [facility] [address] [place], [place] [phone] 06/19/2024 MARIO SNOOK Plantar fascial fibromatosis M72.2 ; Unequal limb length (acquired), 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 [facility] 09/04/2024 Unequal limb length [...] Insured Coverage Start Date Coverage End Date [facility] ATTN CLAIMS [address] [place] [address] [id number] LEOPOLDO BECK Self - patient is the insured
--- OUTSIDE RECORDS SUMMARY | 2025-05-28 00:33 | XMS_ITS | Patient Health Record ---
Author Organization [facility] [employer] [facility] Address [address] [place] [address] Care Team Providers Care Reprint Sorter Name Role Phone Carlitos AGUIRRE, Gloria Primary Care Provider Unavailable Amy Petty Unavailable [phone] Allergies Allergen (clinical drug ingredient) Drug/Non Drug [...] a day Active Vitamin D3 1.25 MG (94489 UT) TAKE 1 CAP RAOUL BY MOUTH [...] Status Risk Notes Problem Generalized anxiety disorder (77532514) RADHA (generalized anxiety disorder) (F41.1) Active confirmed Problem Moderate recurrent major depression (25140048) MDD (major depressive disorder), recurrent episode, moderate (F33.1) Active confirmed Problem Posttraumatic stress disorder (88606664) Chronic post-traumatic stress disorder (PTSD) (F43.12) Active confirmed Problem Vitamin D deficiency (99784499) Vitamin D deficiency (E55.9) Active confirmed Vital Signs Heart Rate 91 /min 12/07/2024 Blood pressure diastolic 89 mm Hg 12/07/2024 Weight-kg 116.85 kg 12/07/2024 Blood pressure systolic 133 mm Hg 12/07/2024 Weight 257.6 lbs 12/07/2024 Encounters Encounter Location Date Provider Diagnosis [facility] [employer] [facility] [address] [address] 12/07/2024 Amy Malinda MDD (major depressive disorder), [...] syndrome. websites http_s://www.nimh. nih.gov/health/top ics/mental-health- medications http_s://www.nain. org/Hkfke-Gbdedi-H llness/Treatments/ Qnwols-Dblndx-Tznl cations http_s://www.nain. org/Eehmy-Ojvsug-T llness/Mental-Heal th-Conditions http_s://Zendrive.com/depression /scn-plzaxozre-gar vxdbt-ab-frgtfeueu n#treatments http__s://www.nimh .nih.gov/health/to pics/mental-health -medications http__s://www.nain .org/About-Mental- Illness/Treatments /Fkbvlb-Smuyrx-Bll ications http_s://elda.nih. gov/publications/d rugfacts/cannabis- marijuana http_s://www.Instacoach/cannabi b-gyu-cohwiycc-mar ijuana-adhd/ Medication Management and Follow-Up - Plan: [...] syndrome. websites http_s://www.nimh. nih.gov/health/top ics/mental-health- medications http_s://www.nain. org/Njwdp-Zmgnpq-U llness/Treatments/ Ifbhrr-Kyzaqi-Igxq cations http_s://www.nain. org/Bwpoi-Ibfhrt-Y llness/Mental-Heal th-Conditions http_s://psychcent Coolstuff.com/depression /qka-weejzmdkl-xcq fpehw-bh-radqjruem n#treatments http__s://www.nimh .nih.gov/health/to pics/mental-health -medications http__s://www.nain .org/About-Mental- Illness/Treatments /Jtyree-Wiirsy-Tlx ications http_s://elda.nih. gov/publications/d rugfacts/cannabis- marijuana http_s://www.Instacoach/cannabi f-buz-ivoyzxdx-mar ijuana-adhd/ Medication Management and Follow-Up - Plan: [...] syndrome. websites http_s://www.nimh. nih.gov/health/top ics/mental-health- medications http_s://www.nain. org/Kjucd-Edppuo-E llness/Treatments/ Etbuwf-Irgarm-Sxwq cations http_s://www.nain. org/Vqxig-Apppmb-F llness/Mental-Heal th-Conditions http_s://MOVL/depression /mda-lxibvryds-cma pusmn-ax-nrctucuph n#treatments http__s://www.nimh .nih.gov/health/to pics/mental-health -medications http__s://www.nain .org/About-Mental- Illness/Treatments /Looact-Ewvadx-Vtt ications http_s://elda.nih. gov/publications/d rugfacts/cannabis- marijuana http_s://wwwPixelle/cannabi s-myf-nzzorizp-mar ijuana-adhd/ Medication Management and Follow-Up - Plan: [...] syndrome. websites http_s://www.nimh. nih.gov/health/top ics/mental-health- medications http_s://www.nain. org/Ihhpz-Tdocpg-T llness/Treatments/ Dsieau-Vwigld-Nznw cations http_s://www.nain. org/Ijrkw-Mtodfm-J llness/Mental-Heal th-Conditions http_s://Zendrive.LegalReach/depression /dzs-blrwuzccj-ham atubb-nr-ymccxcztq n#treatments http__s://www.nimh .nih.gov/health/to pics/mental-health -medications http__s://www.nain .org/About-Mental- Illness/Treatments /Fodtnh-Nufzqm-Vqr ications http_s://elda.nih. gov/publications/d rugfacts/cannabis- marijuana http_s://www.Instacoach/cannabi v-vce-wdiakmcq-mar ijuana-adhd/ Medication Management and Follow-Up - Plan: [...] syndrome. websites http_s://www.nimh. nih.gov/health/top ics/mental-health- medications http_s://www.nain. org/Xwwtr-Tvyptd-H llness/Treatments/ Trrunk-Ahftai-Zyab cations http_s://www.nain. org/Oaxll-Dnkfwf-F llness/Mental-Heal th-Conditions http_s://MOVL/depression /mbt-bpbjgfzar-smm udscx-pl-zogwcznti n#treatments http__s://www.nimh .nih.gov/health/to pics/mental-health -medications http__s://www.nain .org/About-Mental- Illness/Treatments /Cdbukx-Fcnowm-Kgt ications http_s://elda.nih. gov/publications/d rugfacts/cannabis- marijuana http_s://www.Instacoach/cannabi x-bjt-ugnsacom-mar ijuana-adhd/ Medication Management and Follow-Up - Plan: [...] Insured Coverage Start Date Coverage End Date [facility] [address] [place] [address] [id number] NicoleKaylie Self - patient is the insured [...]
--- OUTSIDE RECORDS SUMMARY | 2025-05-28 00:33 | XMS_ITS ---
Author Organization [facility] Address [address] [place], [place] [id number] Care Team Providers Care Certified Orthotist Practice Manager Name Role Phone KYLEE Rahman Unavailable [phone] Answer, Declined Unavailable Unavailable SNOOK, MARIO Unavailable [phone] REASON FOR VISIT Plantar fasciitis fu Encounters Encounter Location Date Provider Diagnosis [facility] [place] [address] [place], [place] [id number] 07/03/2024 MARIO BARRIOSK Plan Of Treatment No Information Progress Notes * KIRAN LEOPOLDO RDOB:1980 (44 yo F)Acc No.[id number]:07/03/2024 Patient: LEOPOLDO LANDAVERDE Provider: PAULINA CroweM :1980 A ge:44 Y S ex:Female Date:07/03/2024 Address:[address] [facility] Subjective: * Chief Complaints: * 1 . Plantar fasciitis fu. * Medical History: Objective: * Vitals: Assessment: Plan: * Treatment: * Billing Information: * Visit Code: * Procedure Codes: * Electronic signature of MARIO GREEN DPM on 05/28/2025 at 12:32 AM CDT Sign off status: Pending * Provider: PAULINA CroweM Date: 0 07/03/2024 Generated for Printi ng/Faxing/eTransmitting on: 0 05/28/2025 12:32 AM CDT
--- OUTSIDE RECORDS SUMMARY | 2025-05-28 00:33 | XMS_ITS | Clinical Summary ---
Author Organization [facility] Address [address] [place] [address] Care Team Providers Care Dispatch Associate Name Role Phone Gloria Urbina MD Primary [...] IN LEFT EYE FOUR TIMES DAILY. Active ukteqmbr12-fd xm-Hkgbxrhe-m lgal 27 mg iron-1.13 mg-581.92 mg capsule [...] - 04/20/2025 11:59 PM CDT Hospital Encounter [facility] [address] [place] [address] At high risk for breast cancer; Family history of breast cancer; Dense breast tissue Discharge Disposition: Discharge to home or self care 04/20/2025 Results Follow-Up [facility] [address] [place] [address] Yuki Callejas NP MRI Breast Bilateral W WO Contrast 03/20/2025 9:15 AM CDT Office Visit [facility] [address] [place] [address] Juan Henley MD Lipid screening [...] this topic Medical Devices Implanted Type [facility] Worker Device Identifier Shelf Expiration Date Model / [...] Read Routine (OP Routine) 10/27/2024 11:28 AM RELIGION TEACHER Breast cancer screening by mammogram from Last [...] Mammogram Bilateral W Miranda (10/27/2024 11:28 AM RELIGION TEACHER) Anatomical Region Laterality Modality Breast Bilateral Mammography Narrative 10/30/2024 11:33 AM RELIGION TEACHER Mammogram Technique: Bilateral Digital Breast Tomosynthesis, Bilateral C-view 2D Screening mammogram. Views obtained: bilateral craniocaudal and bilateral mediolateral oblique. Computer Aided Detection was performed. Mammogram Findings: The present examination has been compared to prior imaging studies performed at [facility] on 02/24/2021, 07/30/2021, 07/27/2022 [...] compared to prior imaging studies performed at [facility] on 02/24/2021, 07/30/2021,07/27/2022 and [...] Most Recently Relevant to Health Maintenance Insurance [employer] ACCESS CHOICE ANTHEM ACCESS CHOICE Care Teams Dispatch Associate Relationship Specialty Start Date End Date Gloria Urbina MD [address] [place] [address] PCP - General Family Practice 09/19/24
--- OUTSIDE RECORDS SUMMARY | 2025-05-28 00:33 | XMS_ITS | Encounter Summary ---
Author Organization [facility] Address [address] [facility] [place] [address] Care Team Providers Care Pricing Consultant Name Role Phone Renetta Vasquez MD Primary Care Provider Un available Encounter Details Date Type Department Care Team (Late st Contact Info) Description 08/12/2023 Lab Requisition [facility] - Derm[facility] Lab [address] [facility], [place] [address] Shavonne Anders MD [address] [facility] 3 [place] [address] Social History Tobacco Use Types Packs/Day Years [...] PM CDT) Case Report Dermatopathology Report Case: [id number] Authorizing Provider: Shavonne Anders MD Collected: 08/12/2023 01:55 PM Ordering Location: [facility] Lab Received: 08/13/2023 01:19 PM Pathologist: Alexia Rogers MD Specimen: Skin, chin 3:23 PM [facility]ERMAT[facility]ATH[facility]AT[facility] Final Diagnosis Specimen A. 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 The specimen consists of a shave biopsy measuring 5x3x1 mm. Jar 0. 3:23 PM [facility]ER[facility] Microscopic Description Specimen A. SKIN, [...] larger lesion, these findings may not be solar manufacturer's representative of the entire lesion. Clinicopathologic correlation is recommended. 3:23 PM [facility] Disclaimer An external and internal positive and negative controls are appropriate for the histochemical, immunohistochemical and immunofluorescence stain(s) in this case (if any), except where stated explicitly. The performance characteristics of the stain(s) cited in this report were developed and its performance characteristic determined by the Dermatopathology Laboratory at [facility], directed by Dr. Kelly Crane. These tests need not be, and therefore are not, approved by the [place] Food and Drug Administration. The tests are used for clinical purposes. Billing Codes Specimen Charges Stain Charges 67975 1 3 3:23 PM [facility]ER[facility] Embedded Images 3 3:23 PM [facility] Pathology/Cytolo gy TISSUE SPECIMEN FROM SKIN / Unknown 08/12/2023 1:55 PM CDT 08/13/2023 1:19 PM CDT us Shavonne Anders MD LAB - PATHOLOGY/CYTOLOGY ORD ERABLES Final Result DERMATOPATHOLOGY LABORATORY [facility] - Department of Dermatology [facility] Medicine [address] [place] [address], [address] [phone] documented in this encounter Visit Diagnoses Not on filedocumented in this encounter Care Teams Pricing Consultant Relationship Specialty Start Date End Date Renetta Vasquez MD [address] [place] [address] PCP - General 12/29/19 documented as of this encounter
--- OUTSIDE RECORDS SUMMARY | 2025-05-28 00:33 | XMS_ITS | Encounter Summary ---
Author Organization [facility] Address [address] [place] [address] Care Team Providers Care Solar Installation Foreman Name Role Phone Michael Acharya MD Primary Care Provider [phone] Sarita Lopez NP Primary Care Provider [phone] Cristina Navarro NP Primary Care Provider + Gloria Urbina MD Primary Care Provider Encounter Details Date Type Department Care Team (Late st Contact Info) Description 08/05/2020 Telephone [facility] ([facility]) [address] [place] [address] Bentley Mehta, Social History Tobacco Use [...] on filedocumented in this encounter Care Teams Solar Installation Foreman Relationship Specialty Start Date End Date Michael Acharya MD [address] [place] [address] PCP - General 07/26/17 07/19/22 Sarita Lopez NP [address] [place] [address] PCP - General Nurse Practitioner 07/20/22 12/02/23 Cristina Navarro NP [address] [place] [address] [address] [place] [address] PCP - General Nurse Practitioner 12/03/23 09/18/24 Gloria Urbina MD [address] [place] [address] [address] [place] [address] PCP - General Family Practice 09/19/24 documented as of this encounter
--- OUTSIDE RECORDS SUMMARY | 2025-05-28 00:33 | XMS_ITS | Clinical Summary ---
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
--- OUTSIDE RECORDS SUMMARY | 2025-05-28 00:33 | XMS_ITS | Clinical Summary ---
Author Organization [facility] Address [address] [place] [address] Care Team Providers Care Lyft Driver Name Role Phone None, Provider MD [...] to complete this topic Insurance Care Teams Lyft Driver Relationship Specialty Start Date End Date None, Provider, MD PCP - General UNKNOWN PHYSICIAN SPECIALTY 04/05/24
--- OUTSIDE RECORDS SUMMARY | 2025-05-28 00:33 | XMS_ITS | Clinical Summary ---
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
--- OUTSIDE RECORDS SUMMARY | 2025-05-28 00:33 | XMS_ITS | Encounter Summary ---
Author Organization [facility] Address [address] [facility] [place] [address] Care Team Providers Care Continuous Mining Machine Operator Name Role Phone Renetta Vasquez MD Primary Care Provider Un available Encounter Details Date Type Department Care Team (Late st Contact Info) Description 09/05/2024 Lab Requisition [facility] - Derm[facility] Lab [address] [facility], [place] [address] Carla Mcdaniels DO [address] [facility] 3 [place] [address] Social History Tobacco Use Types Packs/Day Years [...] Diagnosis Comments DERMATOPATHOLOGY Routine 09/05/2024 8:13 AM RELATIONSHIP MANAGER documented in this encounter Results * DERMATOPATHOLOGY (09/05/2024 8:13 AM RELATIONSHIP MANAGER) Case Report Dermatopathology Report Case: [id number] Authorizing Provider: Carla Mcdaniels DO Collected: 09/05/2024 08:13 AM Ordering Location: [facility] - Received: 09/05/2024 12:38 PM DermPath Lab Pathologist: Lelo Reid MD Specimen: Skin, left chin 11:11 AM [facility] DERMATOPATHOLOGY LABORATORY Final Diagnosis Specimen A. SKIN, left chin: BENIGN VERRUCOUS KERATOSIS (L82.1) (see microscopic description and comment) 11:11 AM [facility] DERMATOPATHOLOGY LABORATORY at [address] [facility] Clinical History R/O NMSC 11:11 AM [facility] DERMATOPATHOLOGY LABORATORY Gross Description Specimen A: Received is one formalin filled container labeled with the patient's name and designated left chin. The specimen consists of a shave biopsy measuring 3x3x1 mm. Jar 0. 11:11 AM [facility] DERMATOPATHOLOGY LABORATORY Microscopic Description Specimen A. SKIN, left chin: Sections show hyperkeratosis, papillomatosis, hypergranulosis, and acanthosis. These histological findings can be seen in a verruca vulgaris or a seborrheic keratosis. Additional deeper sections were obtained and reviewed. COMMENT: Given the superficial nature of the biopsy specimen, a deeper dermal process cannot be excluded. 11:11 AM [facility] DERMATOPATHOLOGY LABORATORY Disclaimer An [...] purposes. Billing Codes Specimen Charges Stain Charges 93520 1 4 11:11 AM [facility] DERMATOPATHOLOGY LABORATORY Embedded Images 11:11 AM [facility] DERMATOPATHOLOGY LABORATORY Pathology/Cytolo gy TISSUE SPECIMEN FROM SKIN / Unknown 09/05/2024 8:13 AM RELATIONSHIP MANAGER 09/05/2024 12:38 PM RELATIONSHIP MANAGER us Carla Mcdaniels DO LAB - PATHOLOGY/CYTOLOGY ORDERABLES Final Result DERMATOPATHOLOGY LABORATORY [facility] - Department of Dermatology [address] 3rd Floor [place], [place] [address] [place] [address] documented in this encounter Visit Diagnoses Not on filedocumented in this encounter Care Teams Continuous Mining Machine Operator Relationship Specialty Start Date End Date Renetta Vasquez MD [address] [facility] [place] [address] PCP - General 12/29/19 documented as of this encounter
--- OUTSIDE RECORDS SUMMARY | 2025-05-28 00:33 | XMS_ITS | Encounter Summary ---
Author Organization [facility] Address [address] [place] [address] Phone Care Team Providers Care Production Clerks Supervisor Name Role Phone Gloria Urbina MD Primary Care Provider Encounter Details Date Type Department Care Team (Late st Contact Info) Description 04/20/2025 Results Follow-Up [facility] [address] [place] [address] Yuki Callejas, ANIBAL [address] [facility] [address] [place], [place] [phone] MRI Breast Bilateral W WO Contrast Social [...] on filedocumented in this encounter Care Teams Production Clerks Supervisor Relationship Specialty Start Date End Date Gloria Urbina MD [address] [facility] [address] [place] [address] PCP - General Family Practice 09/19/24 documented as of this encounter
--- OUTSIDE RECORDS SUMMARY | 2025-05-28 00:33 | XMS_ITS | Clinical Summary ---
Author Organization [facility] Address [address] [place] [address] Care Team Providers Care Pad Machine Feeder Name Role Phone Renetta Vasquez MD Primary Care Provider Un available Source Comments [facility],non-owned Affiliates and Associated Physician Practices is amultiple site organization consisting of ambulatory clinics and hospital sitesin [place], [place], [place]. This disclosure is being madepursuant to the Care Everywhere program and may not contain all information available regarding this patient. 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 Procedure Code(s): --- Professional --- 73098, Colonoscopy, flexible; with biopsy, single or multiple --- Technical --- 70246, Colonoscopy, flexible; with biopsy, single or multiple Diagnosis Code(s): --- Professional --- K52.9, Noninfective gastroenteritis and colitis, unspecified --- Technical --- K52.9, Noninfective gastroenteritis and colitis, unspecified CPT copyright 2017 [employer]. All rights reserved. The codes documented in this report are preliminary and upon alterations expert review may be revised to meet current compliance requirements. Adilene Templeton MD Adilene Templeton MD 04/03/2019 12:54:48 PM Number of Addenda: 0 Note Initiated On: 04/03/2019 11:38 AM [facility] 04/03/2019 11:3 8 AM CDT Adilene Templeton MD GI PROCEDURE ORDERABLES E dited Result - Final [facility] from Last 3 Months or Most Recently Relevant to [place] [address] [facility] Member Subscriber Plan / Payer (Ef fective 2015-Present) Name:Leopoldo Beck Member ID:[id number] Relation to Subscriber:Spouse Name:JOSE BECK II Subscriber ID:[id number] Date of :1980 (Home) Address: [address] [place] [address] [place] [address] Payer ID:[id number] (NAIC) Type:PPO Address: [address] [place] [address] * Guarantor: BECK,LEOPOLDO Account Type Relation to Patient Date of Phone Billing Address Personal/Family 1980 [facility] [place] [address] ANTHEM Care Teams Pad Machine Feeder Relationship Specialty Start Date End Date Renetta Vasquez MD [address] [place] [address] PCP - General 12/29/19
--- NOTE | 2025-05-28 00:49 | ED_ITS ---
HPI - Chest Pain General Chief Complaint: Chest Pain Stated Complaint: chest pain radiating L shoulder, SOB Time Seen by Provider: 05/28/25 00:17 History of Present Illness HPI narrative: 44-year-old female with history of type 2 diabetes, history of NSTEMI with nonobstructive coronary arteries on angiography last year, morbid obesity and lymphedema in bilateral lower extremities. Patient presents to the emergency department with chest pain radiating towards her left shoulder and back associated with shortness of breath. Symptoms started while she was eating dinner and feels in a different location than her previous chest pain that led to her hospitalization with NSTEMI. States that she just drove back approximately 4 hours from a vacation and has been noticing some asymmetric leg swelling despite history of lymphedema. She has an outpatient order for an ultrasound to get done but has not been able to get this yet. States the chest pain felt like a sharp pressure radiating towards the left side of her shoulder and jaw as well as the pack that was associated with an episode of shortness of breath that was ongoing for several hours and then abated approximately 1 hour prior to my initial evaluation. Denies any symptoms at this time. No nausea, vomiting, fever, chills, neck pain, weakness or fatigue. Was otherwise in her normal state of health. Denies any traumatic injuries. Reviewed her medications and she is not any kind of anticoagulants but she does take rosuvastatin daily. She is on Jardiance for diabetes. Related Data Home Medications ?Medication ?Instructions ?Recorded ?Confirmed ?Last Taken ?Type multivitamin (Daily Multi-Vitamin 1 tablet PO DAILY 11/23/23 05/22/25 08/11/24 History tablet) acetaminophen 650 mg 650 mg PO Q12H PRN 09/14/24 05/22/25 Unknown History tablet,extended release (Tylenol Arthritis Pain) cetirizine 10 mg tablet (Zyrtec) 10 mg PO DAILY PRN Allergy Symptoms 09/14/24 05/22/25 Unknown History cyclobenzaprine 10 mg tablet 10 mg PO TID PRN 09/14/24 05/22/25 Unknown History rosuvastatin 10 mg tablet 10 mg PO QHS 11/07/24 05/22/25 Unknown History famotidine 10 mg tablet (Acid 10 mg PO DAILY PRN 05/22/25 05/22/25 Unknown History Branch Sales Manager (famotidine)) magnesium citrate,mag oxide 250 mg 250 mg PO DAILY 05/22/25 05/22/25 Unknown History capsule Allergies Allergy/AdvReac Type Severity Reaction Status Date / Time aspirin Allergy Intermediate Swelling Verified 05/22/25 14:52 NSAIDS (Non-Steroidal Allergy Intermediate face Verified 05/22/25 14:52 Anti-Inflamma swelling midazolam AdvReac Severe Hallucinati Verified 05/22/25 14:52 ng tramadol AdvReac Severe Hallucinati Verified 05/22/25 14:52 ng amoxicillin AdvReac Intermediate Diarrhea Verified 05/22/25 14:52 ciprofloxacin AdvReac Intermediate NAUSEA AND Verified 05/22/25 14:52 DIARRHEA clarithromycin AdvReac Intermediate Vomiting Verified 05/22/25 14:52 erythromycin base AdvReac Intermediate Vomiting Verified 05/22/25 14:52 Review of Systems 2 Review of Systems: As reviewed above in HPI [facility] Past Medical History Medical History Anxiety GERD without esophagitis Lingual tonsil hypertrophy Gluten-sensitive enteropathy Irritable bowel syndrome with diarrhea Myocardial infarction with nonobstructive coronary arteries (~09/2024) Type 2 diabetes mellitus without complications (~09/2024) Sleep apnea On CPAP Chronic venous insufficiency of lower extremity Lymphedema of both lower extremities Bilateral anterior knee pain Diverticulitis (~2019) History of shingles Vitamin D deficiency Shingles Celiac disease Endometriosis Depression (~2009) History of nephrolithotomy with removal of calculi 2013 delivery delivered 2005 and 2008 Scoliosis 7 kevin and screws Surgical History Surgical History History of back surgery History of D&C History of lithotripsy History of tonsillectomy H/O breast biopsy Hx of inguinal hernia repair History of back surgery 1994 Family History Family History Father Skin and subcutaneous tissue complication after insertion of filling material under skin Skin cancer Depression Family history of diabetes mellitus in first degree relative Mother Breast cancer Asthma Right bundle branch block Hypertension Sibling Skin cancer Depression Asthma Other Skin cancer Asthma Grandparent Heart disease Hypertension Grandparent Skin cancer Diabetes mellitus Heart disease Hypertension Thyroid disorder Asthma Other Family history of allergic disorder Social History Social History Smoking status: Never smoker Second hand tobacco smoke exposure: No Alcohol intake: never Alcohol use details: rarely Substance use: never Substance use type: does not use Do You Feel Safe in your Home?: Yes Lack of Transportation: No Lack of Food: Never True Current Housing: I Have Housing Concerned About Future Housing: No Difficulty Paying Gas/Electric Bills: No Difficulty Paying for Meds: No Currently Unemployed: No Education: Master's Degree or Higher Difficulty w/ Childcare or Family Care: No Living arrangements: with family 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 Mucous membranes moist. NECK: Supple. CHEST: [Clear to auscultation. No respiratory distress.] HEART: [Regular rate and rhythm]. No murmur heard. [Normal peripheral pulses.] ABDOMEN: [Soft, nondistended], [nontender], [No rigidity or guarding] EXTREMITIES: Normal range of motion. Bilateral lymphedema without any significant asymmetry or pitting edema. No tenderness with calf palpation SKIN: Warm, dry, no rash. NEURO: [No focal deficits]. Alert and oriented [x3.] PSYCH: [Normal mood and affect.] Course Vital Signs Vital signs: Vital Signs Temperature 36.8 C 05/27/25 20:42 Pulse Rate 94 05/27/25 20:42 Respiratory Rate 16 05/27/25 20:42 Blood Pressure 159/84 H 05/27/25 20:42 Pulse Oximetry 97 05/27/25 20:42 Temperature 36.8 C 05/27/25 20:42 Pulse Rate 83 05/28/25 04:45 Respiratory Rate 16 05/28/25 04:45 Blood Pressure 116/71 05/28/25 04:45 Pulse Oximetry 96 05/28/25 04:45 Oxygen Delivery Room Air 05/28/25 00:26 MDM - Chest Pain MDM Narrative Medical decision making narrative: 44-year-old female with history of type 2 diabetes, history of NSTEMI with nonobstructive coronary arteries on angiography last year, morbid obesity and lymphedema in bilateral lower extremities. Patient presents to the emergency department with chest pain radiating towards her left shoulder and back associated with shortness of breath. Symptoms started while she was eating dinner and feels in a different location than her previous chest pain that led to her hospitalization with NSTEMI. States that she just drove back approximately 4 hours from a vacation and has been noticing some asymmetric leg swelling despite history of lymphedema. She has an outpatient order for an ultrasound to get done but has not been able to get this yet. States the chest pain felt like a sharp pressure radiating towards the left side of her shoulder and jaw as well as the pack that was associated with an episode of shortness of breath that was ongoing for several hours and then abated approximately 1 hour prior to my initial evaluation. Denies any symptoms at this time. No nausea, vomiting, fever, chills, neck pain, weakness or fatigue. Was otherwise in her normal state of health. Denies any traumatic injuries. Reviewed her medications and she is not any kind of anticoagulants but she does take rosuvastatin daily. She is on Jardiance for diabetes. Patient has reassuring set of vitals here without any tachycardia, fever, hypoxemia or blood pressure concerns. Strong symmetric pulses throughout, clear breath sounds throughout. Her symptoms have stopped before my initial evaluation but she did have several hours of ongoing concerning chest pain/pressure sensations that feels like it is in a different location from her previous episode attributed to [place] without evidence of angiographic findings of occlusion during left heart catheterization in September 2024. States the sensation feels similar but the location is different. Given the concern for asymmetric leg swelling recently with outpatient evaluation for potential DVT that is not confirmed we did pursue potential thromboembolic disease such as pulmonary embolism leaning towards her symptoms. ACS is on the differential as well as pneumonia, pneumothorax, musculoskeletal chest discomfort, aortic syndrome less likely. CT angiography was ordered as well as serial troponins, EKG, chest x-ray and basic laboratory studies. Placed on labor employment associate and pulse oximetry. Re-evaluated and still presently asymptomatic. Patient's 2 troponins here are negative in down trended from her previous elevated levels in September. No leukocytosis or anemia. Normal platelet count. Coagulation panel normal. Normal electrolytes. Normal kidney function. Normal glucose. LFTs at baseline. Chest x-ray with some mild atelectasis but no infiltrate or effusion. EKG shows normal sinus rhythm. No signs of ectopy or ST elevations or any concerning features. CT angiography shows no pulmonary embolism, no lymphadenopathy, no focal consolidations effusions or pneumothorax. She has a remodeling the left posterior 10th rib and I did correlate with previous surgical history with rib removal in the side. This could be a potential source of patient's discomfort however overall she has a benign cardiovascular and pulmonary workup and can be safely discharged with outpatient follow-up. She was comfortable with the plan and she has had no symptoms while here in the emergency department and has been stable clinically and hemodynamically for the last several hours. Patient and family felt comfortable with discharge home at this time and given return precautions. Medical Records Data Attestation: I reviewed the patient's medical records. Lab Data Attestation: I reviewed the patient's lab results. 05/27/25 20:48 05/27/25 20:48 Labs: Lab Results 05/27/25 05/28/25 05/28/25 Range/Units 20:48 00:03 01:13 WBC 9.3 (4.5-10.0) K/mm3 RBC 5.36 (4.2-5.4) M/mm3 Hgb 15.0 (12.0-15.0) g/dL Hct 47.7 H (37.0-47.0) % MCV 89.0 (80-100) fl MCH 28.0 (26-34) pg MCHC 31.4 L (32-36) g/dl RDW 15.5 H (11.5-14.5) % Plt Count 271 (150-375) k/mm3 MPV 9.3 (7.4-10.4) fl Immature Gran % (Auto) 0.4 (0-0.5) % Neut % (Auto) 56.4 (45.5-73.1) % Lymph % (Auto) 36.4 (18.3-44.2) % [place] % (Auto) 5.1 (2.6-8.5) % Eos % (Auto) 1.5 (0-4.4) % Baso % (Auto) 0.2 (0.2-1.2) % Lymph # (Auto) 3.40 H (0.9-3.2) K/mm3 [place] # (Auto) 0.5 (0.1-0.6) K/mm3 Eos # (Auto) 0.1 (0-0.3) K/mm3 Baso # (Auto) 0.0 (0.0-0.1) K/mm3 Abs Immat Gran (auto) 0.04 H (0.00-0.031) K/mm3 Absolute Neuts (auto) 5.3 (1.3-6.7) K/mm3 Absolute Nucleated RBC 0.000 (0.0-0.012) K/mm3 Nucleated RBC % 0.0 (0.0-0.2) % PT 12.4 (11.1-14.7) Seconds INR 0.9 APTT 24.3 (22.3-36.8) Seconds Sodium 137 (137-145) mmol/L Potassium 4.3 (3.4-5.0) mmol/L Chloride 105 (98-107) mmol/L Carbon Dioxide 23 (22-30) mmol/L Anion Gap 9 (4-12) mmol/L BUN 12 (7-17) mg/dL Creatinine 0.60 L (0.7-1.0) mg/dL Estim Creat Clear Calc Not Reportable Estimated GFR > 60 (59 - ) Glucose 142 H (65-110) mg/dL Calcium 9.1 (8.4-10.2) mg/dL Total Bilirubin 0.6 (0.2-1.3) mg/dL AST 37 H (14-36) U/L ALT 42 H (6-35) U/L Alkaline Phosphatase 84 (38-126) U/L Troponin I 0.014 < 0.012 (0.000-0.034) ng/mL Total Protein 8.1 (6.3-8.2) g/dL Albumin 4.5 (3.5-5.1) g/dL Lipase 85 (23-300) U/L POC Urine HCG, Qual Negative (Negative) Imaging Data Attestation: I personally reviewed and interpreted this imaging study as follows: My impression: No PE, remodeling of the 10th rib from previous surgical history. Discharge Plan Discharge Clinical Impression: Chest pain, Chest wall pain Patient Disposition: Home Condition: Stable Instructions: Antibiotic Form, Chest Pain (ED), Chest Wall Pain (ED) Additional Instructions: No signs of blood clot, no signs of any cardiovascular concern, no pneumonia or pleural effusions. No signs of any acute organ dysfunction. Hemodynamics are stable. You are safe for discharge home at this time with regular primary care provider follow-up. If you have any recurrent symptoms or new worsening symptoms/concerns please return to the emergency department. Patient Language: Cypriot Prescriptions: No Action multivitamin [Daily Multi-Vitamin] Tablet 1 tablet PO DAILY Patient Comments: has not been taking in last month rosuvastatin 10 mg tablet 10 mg PO QHS cetirizine [Zyrtec] 10 mg tablet 10 mg PO DAILY PRN (Reason: Allergy Symptoms) acetaminophen [Tylenol Arthritis Pain] 650 mg tablet extended release 650 mg PO Q12H PRN cyclobenzaprine 10 mg tablet 10 mg PO TID PRN magnesium citrate,mag oxide 250 mg capsule 250 mg PO DAILY famotidine [Acid Branch Sales Manager (famotidine)] 10 mg tablet 10 mg PO DAILY PRN (DME) blood-glucose meter [Blood Glucose Monitoring] Kit See Rx Instructions .ROUTE .MEDSUPPLY Qty: 1 0RF Rx Instructions: check blood sugars q.day. As directed (DME) Blood Glucose Test Strip See Rx Instructions .ROUTE .MEDSUPPLY Qty: 100 3RF Rx Instructions: Use to check BS once daily. (DME) lancets 33 gauge misc See Rx Instructions .ROUTE .MEDSUPPLY Qty: 100 3RF Rx Instructions: Use to check BS once daily. Jardiance 25 mg tablet 25 mg PO QAM Qty: 90 1RF Ozempic 1 mg/dose (4 mg/3 mL) pen injector 1 mg subcut WEEKLY Qty: 3 1RF coenzyme Q10 200 mg capsule 200 mg PO DAILY Qty: 90 1RF Follow-up/Referrals: Kenn Urbina MD [Primary Care Provider] - Time of Disposition: 04:43
[2025-05-28 00:59] LABS: Troponin I < 0.012 ng/mL (0.000-0.034)
[2025-05-28 01:14] LABS: BEDSIDEPREGUCG Negative (Negative)
== END 2025-05-28 04:51 | disposition home or self-care (01) ==
PROVIDERS: Emergency Provider Student in an Organized Health Care Education/Training Program; PCP Family Medicine
DX: R07.89 Other chest pain (principal); E11.9 Type 2 diabetes mellitus without complications; F41.9 Anxiety disorder, unspecified; K21.9 Gastro-esophageal reflux disease without esophagitis; I25.2 Old myocardial infarction; G47.33 Obstructive sleep apnea (adult) (pediatric); Z99.89 Dependence on other enabling machines and devices; E55.9 Vitamin D deficiency, unspecified; K90.0 Celiac disease
CPT/HCPCS: 36415; 71046; 71275; 80053; 81025; 83690; 84484; 85025; 85610; 85730; 93005; 99284; Q9967

== ENCOUNTER 2025-06-01 11:52 | Outpatient (CLI) | payer BC, SELFPAY ==
--- NOTE | ~2025-06-01 | US_ITS ---
US soft tissue LE LT 06/01/2025 12:14 Indication: Pain of left leg with swelling Procedure: Soft tissue ultrasound of the left anterior lower leg Comparison: No prior studies for comparison. Findings: Normal heterogeneous soft tissues without focal solid or cystic mass. Impression: 1: Normal ultrasound of the left lower leg anteriorly without discrete mass in the area palpable concern. Reviewed, dictated and finalized at location O. Impression: 1: Normal ultrasound of the left lower leg anteriorly without discrete mass in the area palpable concern.
--- NOTE | ~2025-06-01 | US_ITS ---
EXAMINATION:US venous doppler LE BI INDICATION:Leg pain and swelling TECHNIQUE: Multiple grayscale, color flow and Doppler images of the bilateral lower extremity deep venous systems were obtained and reviewed. COMPARISON:No prior studies for comparison. FINDINGS: The common femoral, superficial femoral and popliteal veins demonstrate normal respiratory variation, augmentation and compressibility. Color flow is also seen within the posterior tibial, peroneal, greater saphenous and profunda veins. IMPRESSION: 1: No lower extremity deep venous thrombosis. Reviewed, dictated and finalized at location O.
== END 2025-06-01 11:53 | disposition home or self-care (01) ==
LOC: MICIMG 11:52
PROVIDERS: PCP Family Medicine; Visit Provider Family Medicine
DX: M79.605 Pain in left leg (principal); M79.89 Other specified soft tissue disorders; R22.43 Localized swelling, mass and lump, lower limb, bilateral
CPT/HCPCS: 76882; 93970